=== PATIENT | female | born 1975 | race African-American/Black ===

== ENCOUNTER 2024-02-11 03:28 | Emergency (ER) | payer OTHER, SELFPAY ==
[2024-02-11 03:31] VITALS: BP 152/74; PULSE 78; RESP 15; TEMP 36.5; O2SAT 100
--- NOTE | 2024-02-11 04:48 | ED.GENADULT ---
HPI - General Adult General Chief complaint: Eye Problems Stated complaint: eyes swollen Time Seen by Provider: 02/11/24 04:40 History of Present Illness HPI narrative: 49-year-old female presents the emergency department for evaluation for bilateral eyelid inflammation that is been ongoing for the last 3 weeks. Patient did have follow-up with her primary care physician had thought this was possible sinus infection per patient and they told her to use Benadryl. Patient has been using Eucerin cream on the eyelids to help with the dry skin. Patient denies any irritation of her eye itself Related Data Allergies Allergy/AdvReac Type Severity Reaction Status Date / Time No Known Allergies Allergy Unknown Unverified 12/04/18 01:16 Review of Systems Review of Systems: All systems reviewed & are unremarkable except as noted in HPI and below Exam Narrative: APPEARANCE: Well appearing, no pain, no distress, well-nourished. HEAD: normocephalic, atraumatic. EYES: PERRLA/EOMI, conjunctivae clear. NOSE: Normal no drainage EARS:TMS clear with good light reflex. THROAT: Pharynx clear, no exudate. NECK: Supple. No adenopathy, no masses. RESPIRATORY: Airway patent, respirations nonlabored. Clear to auscultation bilaterally, no rales, rhonchi, wheezing. CARDIOVASCULAR: Regular rate and rhythm without murmurs rubs or gallops. ABDOMINAL: Soft, nontender, nondistended, normal bowel sounds MUSCULOSKELETAL: Moves all extremities. Strength/ROM intact, No edema, No calf tenderness. NEURO: Alert. Cranial nerves II through XII intact. Good gait. Good coordination SKIN: Warm, dry. Normal Color Course Vital Signs Vital signs: Vital Signs Temperature 97.7 F 02/11/24 03:31 Pulse Rate 78 02/11/24 03:31 Respiratory Rate 15 02/11/24 03:31 Blood Pressure 152/74 H 02/11/24 03:31 Pulse Oximetry 100 02/11/24 03:31 Oxygen Delivery Room Air 02/11/24 03:31 Temperature 97.7 F 02/11/24 03:31 Pulse Rate 78 02/11/24 03:31 Respiratory Rate 15 02/11/24 03:31 Blood Pressure 152/74 H 02/11/24 03:31 Pulse Oximetry 100 02/11/24 03:31 Oxygen Delivery Room Air 02/11/24 03:31 Medical Decision Making MDM Narrative Medical decision making narrative: 49-year-old female presents emergency department for evaluation for eyelid irritation. No evidence of cellulitis. Does appear to be an atopic dermatitis. Patient is already using Vaseline and Eucerin creams. Patient will be started on a short course of steroids. Patient was strongly encouraged to have close follow-up with her primary care physician. All questions and concerns were addressed Vital Signs Vital Signs: Vital Signs Temperature 97.7 F 02/11/24 03:31 Pulse Rate 78 02/11/24 03:31 Respiratory Rate 15 02/11/24 03:31 Blood Pressure 152/74 H 02/11/24 03:31 Pulse Oximetry 100 02/11/24 03:31 Oxygen Delivery Room Air 02/11/24 03:31 Temperature 97.7 F 02/11/24 03:31 Pulse Rate 78 02/11/24 03:31 Respiratory Rate 15 02/11/24 03:31 Blood Pressure 152/74 H 02/11/24 03:31 Pulse Oximetry 100 02/11/24 03:31 Oxygen Delivery Room Air 02/11/24 03:31 Discharge Plan Discharge Clinical Impression: Atopic dermatitis of eyelid Patient Disposition: Home, Self-Care Condition: Stable Instructions: Antibiotic Form Additional Instructions: Prednisone as directed until completed. Have close follow-up with your primary care physician. Continue to use Vaseline and Eucerin as you have been. Continue to take Benadryl if you feel this provides some relief. Patient Language: Filipino Prescriptions: New prednisone 50 mg tablet 50 mg PO DAILY 5 Days Qty: 5 0RF Follow-up/Referrals: Brandin,MD Voss ([place]heng[place]) [Primary Care Provider] -
--- OUTSIDE RECORDS SUMMARY | 2024-02-18 03:23 | XMS_ITS | Encounter Summary ---
Author Organization [facility] Address [address] [place] [address] Care Team Providers Care Registered Nurse Supervisor Name Role Phone Tristin Ghotra MD Primary Care Provider [phone] Reason for Visit * Reason Comments Refill Request Encounter Details Date Type Department Care Team (Late st Contact Info) Description 05/16/2018 Refill [facility] - [address], [place] [address] [place] [id number] Matt Armstrong MD [address] [place] [id number] Refill Request Social History Tobacco Use Types Packs/Day Years Used Date Smoking Tobacco: Never Alcohol Use Standard Drinks/Week Comments Yes 0 (1 standard drink = 0.6 oz pur e alcohol) Social Sex and Gender Information Value Date Recorded Sex Assigned at Not on file Gender Identity Not on file Sexual Orientation Not on file documented as of this encounter Plan of Treatment Not on file documented as of this encounter Visit Diagnoses Not on filedocumented in this encounter Care Teams Registered Nurse Supervisor Relationship Specialty Start Date End Date Tristin Ghotra MD [address] [place] [address] [address] [place] [address] PCP - General 04/04/12 documented as of this encounter
--- OUTSIDE RECORDS SUMMARY | 2024-02-18 03:23 | XMS_ITS | Encounter Summary ---
Author Organization [facility] Address [address] [place] [address] Care Team Providers Care Chronograph Operator Name Role Phone Tristin Ghotra MD Primary Care Provider [phone] Reason for Visit * Reason Onset Date Comments Update 10/02/2017 Blood Pressure Encounter Details Date Type Department Care Team (Late st Contact Info) Description 10/02/2017 Telephone [facility] - [address], [facility] [place] [address] [place] [address] Matt Armstrong MD [address] [place] [id number] Update (Blood Pressure) Social History Tobacco Use Types Packs/Day Years Used Date Smoking Tobacco: Never Alcohol Use Standard Drinks/Week Comments Yes 0 (1 standard drink = 0.6 oz pur e alcohol) Social Sex and Gender Information Value Date Recorded Sex Assigned at Not on file Gender Identity Not on file Sexual Orientation Not on file documented as of this encounter Miscellaneous Notes * Telephone Encounter - Roxanne Epperson - 10/03/2017 2:11 PM CDT Spoke with patient who agrees to start Nifedipine 30 mg daily (sent to pharmacy). She knows to callwith any problems or if she should become . * Telephone Encounter - Matt Armstrong MD - 10/03/2017 11:32 AM CDT BP still too high, given her history. I would recommend she start Nifedipine XL 30 mg qday. Potential SEs might include lightheadedness, feet/ankle swelling, or other. Most people would have none. Ifshe should get , this medicine is commonly used in - but she should still let us know. Thanks. * Telephone Encounter - Roxanne Epperson - 10/02/2017 3:14 PM CDT Patient called with her average blood pressure over the last two weeks taken about 9:00 PM each evening - 139/88. documented in this encounter Plan of Treatment Not on file documented as of this encounter Visit Diagnoses Not on filedocumented in this encounter Care Teams Chronograph Operator Relationship Specialty Start Date End Date Tristin Ghotra MD [address] [place] [address] [address] [place] [address] PCP - General 04/04/12 documented as of this encounter
--- OUTSIDE RECORDS SUMMARY | 2024-02-18 03:23 | XMS_ITS | Encounter Summary ---
Author Organization [facility] Address [address] [place] [address] Care Team Providers Care Geochemist Name Role Phone Tristin Ghotra MD Primary Care Provider [phone] Reason for Visit * Reason Onset Date Comments MEDICATION REFILL 10/03/2017 Encounter Details Date Type Department Care Team (Late st Contact Info) Description 10/03/2017 Refill [facility] - [address], [facility] [address] [place] [phone] Matt Armstrong MD [address] [place] [phone] MEDICATION REFILL Social History Tobacco Use Types Packs/Day Years [...] on filedocumented in this encounter Care Teams Geochemist Relationship Specialty Start Date End Date Tristin Ghotra MD [address] [place] [address] [address] [place] [address] PCP - General 04/04/12 documented as of this encounter
--- OUTSIDE RECORDS SUMMARY | 2024-02-18 03:23 | XMS_ITS | Encounter Summary ---
Author Organization [facility] Address [address] [place] [address] Care Team Providers Care Malted Milk Mixer Name Role Phone Tristin Ghotra MD Primary Care Provider [phone] Reason for Visit * Reason Comments Follow-up Encounter Details Date Type Department Care Team (Late Contact Info) Description 10/09/2018 12:15 PM CDT Office Visit [facility] - [address], [facility] [address] [place] [phone] Matt Armstrong MD [address] [place] [address] [place] [phone] Spontaneous dissection of coronary artery (Primary Dx); Essential hypertension; S/P coronary artery stent placement; History of RI (myocardial infarction); Insomnia, unspecified type; Elevated LFTs; History of near syncope Social History Tobacco Use Types Packs/Day Years Used Date Smoking Tobacco: Never Alcohol Use Standard Drinks/Week Comments Yes 0 (1 standard drink = 0.6 oz pur e alcohol) Social Sex and Gender Information Value Date Recorded Sex Assigned at Not on file Gender Identity Not on file Sexual Orientation Not on file documented as of this encounter Last Filed Vital Signs Vital Sign Reading Time Taken Comments Blood Pressure 110/70 10/09/2018 12:07 PM CDT Pulse 63 10/09/2018 12:07 PM CDT Temperature - - Respiratory Rate - - Oxygen Saturation 98% 10/09/2018 12:07 PM CDT Inhaled Oxygen Concentration - - Weight 68.9 kg (152 lb) 10/09/2018 12:07 PM CDT Height 175.3 cm (5' 9 ) 10/09/2018 12:07 PM CDT Body Mass Index 22.45 10/09/2018 12:07 PM CDT documented in this encounter Progress Notes * Matt Armstrong MD - 10/09/2018 12:15 PM CDT Images from the original note were not included. Chief Complaint Patient presents with ??? Follow-up History of Present Illness Paola Mckeon is a 43 year old female, who follows routinely for HTN, prior near syncope and priorMI and stenting due to spontaneous coronary dissection Weight down 3 lbs since last OV Systolic BP <120 when checked Has an ache in bilateral trapezius area sometimes radiating down arm. But no CP ever. No recent presyncope/syncope I do get dizzy a lot Energy level very low , which she ascribes to poor sleep chronically at night. Does not want to take sleeping pills because harder to wake up the next AM. 's snoring has increased a lot in last 2 years, which does nto help. (She reports he is seeing a sleep specialist soon.) Had a childhood h/o asthma. Does not believe she is depressed. Denies sadness, crying or anhedonia. Exercise - Walking 2x/week for 60 min in past months. Now doing a spin class 1d/week. She likes it when she is there, but hard to get motivated to go there. No bowel or bladder troubles. Menses are regular but heavy - Grievance And Appeals Specialist has advised a diagnostic study. Comprehensive system review is otherwise negative for constitutional, HENT, eyes, neck, musculoskeletal, derm, neuro, cardiovascular, pulmonary, extremities, vascular, endocrine, GI, . Patient Active Problem List Diagnosis Date Noted ??? Elevated LFTs 09/06/2017 Priority: Not Prioritized ??? History of RI (myocardial infarction) 09/06/2017 Priority: Not Prioritized Echo 09/2013 - EF 55-60%, anteroapical hypokinesis , nl chamber sizes, no valve problems Stress Echo 04/2015 - Mild apical inferior, apical septal hypokinesis, overall normal LVEF 58%, nl chamber sizes, no valve abnormalities, PASP 28 mmHg. Walked 12 min. Clinically/EKG negative. Images very mildly abnormal thought due to scar more than new ischemia. ??? Spontaneous dissection of coronary artery 09/06/2017 Priority: Not Prioritized ??? Essential hypertension 09/06/2017 Priority: Not Prioritized Home PSG 01/2018 - Normal limits. No sleep apnea. ??? S/P coronary artery stent placement 09/06/2017 Priority: Not Prioritized Cath 09/21/2013 - LVEDP 20, EF 55%. Nl aortic root w/ no dissection. Spontaneous dissection of the LAD proximal to mid, involving a diagonal. Stented w/ bare metal stents x 2. Cath 09/23/2017 - Patent LAD stents w/ MIKALA 3 flow (improved). ??? History of near syncope 09/06/2017 Priority: Not Prioritized Past Medical History: Diagnosis Date ??? Childhood asthma ??? Elevated liver enzymes ??? Spontaneous dissection of coronary artery Past Surgical History: Procedure Laterality Date ??? Appendectomy ??? Cholecystectomy ??? Coronary Stent Placement Current Outpatient Medications Medication Sig Dispense Refill ??? aspirin (ASPIRIN) 81 MG chew tablet Take 81 mg by mouth once daily ??? clobetasol propionate (CLOBEX) 0.05 % shampoo by Apply externally route as needed ??? NIFEdipine CR 24hr (ADALAT CC) 60 MG tablet TAKE 1 TABLET BY MOUTH ONCE DAILY TAKE ON AN EMPTY STOMACH 30 tablet 5 ??? NON FORMULARY REQUEST Nutrafol ??? spironolactone (ALDACTONE) 100 MG tablet Take 100 mg by mouth once daily No current facility-administered medications for this visit. No Known Allergies Social History Socioeconomic History ??? Marital status: Spouse name: Not on file ??? Number of children: Not on file ??? Years of education: Not on file ??? Highest education level: Not on file Occupational History ??? Not on file Social Needs ??? Financial resource strain: Not on file ??? Food insecurity: Worry: Not on file Inability: Not on file ??? Transportation needs: Medical: Not on file Non-medical: Not on file Tobacco Use ??? Smoking status: Never Smoker Substance and Sexual Activity ??? Alcohol use: Yes Comment: Social ??? Drug use: Not on file ??? Sexual activity: Not on file Lifestyle ??? Physical activity: Days per week: Not on file Minutes per session: Not on file ??? Stress: Not on file Relationships ??? Social connections: Talks on phone: Not on file Gets together: Not on file Attends pentecostal service: Not on file Active member of club or organization: Not on file Attends meetings of clubs or organizations: Not on file Relationship status: Not on file ??? Intimate partner violence: Fear of current or ex partner: Not on file Emotionally abused: Not on file Physically abused: Not on file Forced sexual activity: Not on file Other Topics Concern ??? Not on file Social History Narrative in 2003. Has a son born in 2004. 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 Family History Problem Relation Age of Onset ??? Hypertension Mother ??? Aneurysm, Brain Sister 51 ??? Hypertension Sister Exam BP 110/70 Pulse 63 Ht 1.753 m (5' 9 ) Wt 68.9 kg (152 lb) SpO2 98% BMI 22.45 kg/m2 Filed Wts: 10/09/18 1207 Weight: 68.9 kg (152 lb) General -- Pleasant, NAD Eyes -- sclerae anicteric HENT/Neck -- atraumatic head, JVP normal, carotids 2+ without bruit CV -- regular, normal rate, no M/R/G Chest -- CTA bilaterally Abdomen -- ND, soft, NT, Ao not enlarged, no HJR, + hepatomegaly, spleen not palpable MSK/Extremities -- no cyanosis, clubbing or edema Vascular -- 2+ x bilateral radial & pedal pulses Neuro -- Alert, interactive, appropriate Derm -- no rash Assessment and Plan Spontaneous dissection of coronary artery Essential hypertension S/P coronary artery stent placement History of RI (myocardial infarction) Insomnia, unspecified type Elevated LFTs History of near syncope 1. 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 2. Random, usually non-exertional trapezius pain is dissimilar from prior angina and thought likelynon-cardiac. 3. Again reviewed potential future heart symptoms of concern for which she should contact us or getprompt help. 4. Continue ASA 81 mg qday. I suspect statins have been avoided in the past due to liver problems. Given the liver history, and the relative lack of knowledge if statins impact the risk of recurrent SCAD, I suggest no statin now. 5. Fatigue persists. Had a sleep study with Dr. Ghotra but she is unsure of results. 6. Taking Spironolactone at high dose per Direct Service Worker for hair loss and scalp yeast. 7. Hydrate better. 8. HTN now stable after increasing Nifedipine to 60 mg qday. 9. When she started Nifedipine, patient elected to stop Ramipril. 10. Will decrease Nifedipine to 30 mg qday to see if helps dizziness. 11. Will refer to Sleep Medicine specialist for long-standing insomnia. (Had a prior home sleep study with results thought likely inaccurate.) 12. Counseled exercise, heart healthy diet & lifestyle strategies to achieve ideal body weight,heart safety and global wellness. 13. Spell of near passing out in early 2018 sounds vagal, as had been previously suggested to her. I advised of physiology, common occurrence, avoidance tactics and maneuvers. 14. Counseled potential future symptoms of heart concern for which patient agrees to get prompt care. 15. Routine f/u in 6 mo. Matt Armstrong III, MD, [email or web address] * Roxanne Epperson - 10/09/2018 12:06 PM CDT 6 mo f/u Weight down 3 lbs since last OV Systolic BP <120 when checked No recent presyncope/syncope I do get dizzy a lot Energy level very low documented in this encounter Plan of Treatment Not on file documented as of this encounter Visit Diagnoses Diagnosis Spontaneous dissection of coronary artery- Primary Essential hypertension S/P coronary artery stent placement Postsurgical percutaneous transluminal coronary angioplasty status History of RI (myocardial infarction) Old myocardial infarction Insomnia, unspecified type Elevated LFTs Other abnormal blood chemistry History of near syncope Personal history of other specified diseases documented in this encounter Care Teams Malted Milk Mixer Relationship Specialty Start Date End Date Tristin Ghotra MD [address] [place] [address] [address] [place] [address] PCP - General 04/04/12 documented as of this encounter
--- OUTSIDE RECORDS SUMMARY | 2024-02-18 03:23 | XMS_ITS | Encounter Summary ---
Author Organization [facility] Address [address] [place] [address] Care Team Providers Care Apparel Rental Clerk Name Role Phone Tristin Ghotra MD Primary Care Provider [phone] Reason for Visit * Reason Comments Establish Care Encounter Details Date Type Department Care Team (Late st Contact Info) Description 09/06/2017 8:30 AM CDT Office Visit LOCATED WITHIN [facility] - [address], [facility] [address] [place] [phone] Matt Armstrong MD [address] [place] [address] [place] [id number] Spontaneous dissection of coronary artery (Primary Dx); Essential hypertension; History of [place] (myocardial infarction); Elevated LFTs; S/P coronary artery stent placement; History of near syncope Social History Tobacco [...] Sign Reading Time Taken Comments Blood Pressure 153/81 09/06/2017 8:32 AM CDT Pulse 70 09/06/2017 8:32 AM CDT Temperature - - Respiratory Rate - - Oxygen Saturation 98% 09/06/2017 8:32 AM CDT Inhaled Oxygen Concentration - - Weight 70.8 kg (156 lb) 09/06/2017 8:32 AM CDT Height 175.3 cm (5' 9 ) 09/06/2017 8:32 AM CDT Body Mass Index 23.04 09/06/2017 8:32 AM CDT documented in this encounter Progress Notes * Roxanne Epperson - 09/06/2017 8:20 AM CDT Self-referred Transferring care from Dr. [place] Waldrop Last echo - 05/20/15 EKG - 09/28/16 Elevated liver enzymes & swollen liver Reports having palpitations SOB often - both with and without activity Patien reports dissection, but Dr. Waldrop's report states no dissection Became lightheaded, nausea and dizzy at son's basketball game about eight months ago - went to [place] ([place], [place]) ER * Matt Armstrnog MD - 09/06/2017 8:00 AM CDT Images from the original note were not included. Primary Care Physician: Tristin Ghotra MD Patient's Name: Paola Mckeon Age: 42 y.o. Sex: female Chief Complaint Patient presents with ??? 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 She previously saw Dr. [place] Waldrop. Patient reports she had mildly elevated high BP during her in 2004. She recalls she was started on some B-dylan. She was then changed to some other BP med after delivery b/c BP stayed mildly up. She would have irregular heart beats at times. Monitors apparently showed just what she describes as an infrequent extra heart beat. Had been having increased stress in her life around 2013. She had a burn, rip feel in her chest one day. She ignored it b/c it went away. Then, occurred again the next day worse, w/ sweating and nausea. Went to , then promptly to [facility] where she was told she had a coronary dissection for which she received two stents. She was ultimately off meds after a year. BP went up. States the weight is slowly coming off after stopping the Toprol. Reports she has occasional sensation of an air bubble in her mid chest, or some random very brief prickly sensations in her chest, different than her original angina. Had a spell of near passing out watching her son play a basketball game in a gym in the Winter of -. Ultimately thought to have been a vagal event - none prior or since. Exercise - No recent exercise. Was getting short winded when exercised. Used to spin 5 d/week. Has never been a good sleeper. Believes she is not depressed. But tired a lot. 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 She has been on lots of itching and jaundice. Sees Dr. Hager (GI) in [place] and [place] (GI). Several liver biopsies have been inconclusive. Denies recent itching or jaundice. States bowels lately normal. But has abd bloating immediately after eating or drinking. Has beenRx'd an inhaler, but she has not used it. PFTs were thought OK. Has some increased flow lately w/ menses and planning Single Resource Boss visit soon. Otherwise, constitutional, HENT/neck, eyes, endocrine, CV, pulmonary, GI, , neuro, derm, heme, MSK, extremities are all negative. Patient Active Problem List Diagnosis Date Noted ??? Elevated LFTs 09/06/2017 Priority: Not Prioritized ??? History of [place] (myocardial infarction) 09/06/2017 Priority: Not Prioritized ??? Spontaneous dissection of coronary artery 09/06/2017 Priority: Not Prioritized ??? Essential hypertension 09/06/2017 Priority: Not Prioritized ??? S/P coronary artery stent placement 09/06/2017 Priority: Not Prioritized ??? History of near syncope 09/06/2017 Priority: Not Prioritized Current Outpatient Prescriptions Medication Sig Dispense Refill ??? ramipril (ALTACE) 5 MG capsule Take 5 mg by mouth once daily ??? aspirin (ASPIRIN) 81 MG chew tablet Take 81 mg by mouth once daily No current facility-administered medications for this visit. No Known Allergies Past Medical History: Diagnosis Date ??? Childhood asthma ??? Elevated liver enzymes ??? Spontaneous dissection of coronary artery Past Surgical History: Procedure Laterality Date ??? Appendectomy ??? Cholecystectomy ??? Coronary Stent Placement Social History Social History ??? Marital status: Spouse name: N/A ??? Number of children: N/A ??? Years of education: N/A Occupational History ??? Not on file. Social History Main Topics ??? Smoking status: Never Smoker ??? Smokeless tobacco: Not on file ??? Alcohol use Yes Comment: Social ??? Drug use: Not on file ??? Sexual activity: Not on file Other Topics Concern ??? Not on file Social History Narrative in 2003. Has a son born in 2004. 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 Family History Problem Relation Age of Onset ??? Hypertension Mother ??? Aneurysm, Brain Sister 51 ??? Hypertension Sister Exam BP 153/81 Pulse 70 Ht 1.753 m (5' 9 ) Wt 70.8 kg (156 lb) SpO2 98% BMI 23.04 kg/m2 General -- Pleasant, NAD Eyes -- sclerae [...] Alert, interactive, appropriate Derm -- no rash Data Lab & Data Highlights -- pending EKG: Normal sinus, normal EKG - 2016 Assessment and Plan Spontaneous dissection of coronary artery Essential hypertension History of [place] (myocardial infarction) Elevated LFTs S/P coronary artery stent placement History of near syncope 1. Patient has a complicated and intriguing history. 2. I counseled the anatomy, limited known physiology and natural history of patients with spontaneous coronary dissection. 3. I offered online references for her to read more. 4. 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 5. I recommend ASA 81 mg qday. I suspect statins have been avoided in the past due to liver problems. Given the liver history, and the relative lack of knowledge if statins impact the risk of recurrent SCAD, I suggest no statin now. 6. 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 She agrees to get back to moderate regular exercise, starting slowly andbuilding steadily. 7. If she cannot build her endurance, then further cardiac & metabolic evaluation would seem warranted - e.g. For heart concerns, liver worsening, worse asthma than she realizes, etc 8. Symptoms of potential future heart concern reviewed, for which she agrees she would get urgent help. 9. HTN not controlled. She suspects it is often high. She prefers no B-dylan due to possible associated weight gain with Toprol. Given that she has no angina, and has a known normal EF post-KS, no B-dylan is very reasonable. 10. Continue Ramipril. She is aware of precautions and prefers to continue it. She agreesto stop Ramipril immediately should she possibly be . 11. She will get a BP cuff and keep a home log. Numbers to us in a week. 12. Will request admission records from [place] and stenting admission. 13. Will attempt to find latest labs. 14. Spell of near passing out in early 2018 sounds vagal, as had been previously suggested to her. I advised of physiology, common occurrence, avoidance tactics and maneuvers. Stay well hydrated. 15. She agrees to check back in with her Skidway Man. 16. Routine f/u with us in 6 weeks, or anytime sooner with concerns. Matt Armstrong III, MD, [facility] documented in this encounter Plan of Treatment Not on file documented as of this encounter Visit Diagnoses Diagnosis Spontaneous dissection of coronary artery- Primary Essential hypertension History of [place] (myocardial infarction) Old myocardial infarction Elevated LFTs Other abnormal blood chemistry S/P coronary artery stent placement Postsurgical percutaneous transluminal coronary angioplasty status History of near syncope Personal history of other specified diseases documented in this encounter Care Teams Apparel Rental Clerk Relationship Specialty Start Date End Date Tristin Ghotra MD [address] [place] [address] [address] [place] [address] PCP - General 04/04/12 documented as of this encounter
--- OUTSIDE RECORDS SUMMARY | 2024-02-18 03:23 | XMS_ITS | Encounter Summary ---
Author Organization [facility] Address [address] [place] [address] Care Team Providers Care Cleaning Associate Name Role Phone Tristin Ghotra MD Primary Care Provider [phone] Reason for Visit * Reason Comments Follow-up Encounter Details Date Type Department Care Team ([facility] Contact Info) Description 12/14/2017 11:30 AM CDT Office Visit [facility] - [address], [facility] [address] [place] [phone] Matt Armstrong MD [address] [place] [address] [place] [phone] Spontaneous dissection of coronary artery (Primary Dx); Essential hypertension; History of [place] (myocardial infarction); S/P coronary artery stent placement; History of [...] Sign Reading Time Taken Comments Blood Pressure 134/91 12/14/2017 11:05 AM CDT Pulse 67 12/14/2017 11:05 AM CDT Temperature - - Respiratory Rate - - Oxygen Saturation 98% 12/14/2017 11:05 AM CDT Inhaled Oxygen Concentration - - Weight 70.3 kg (155 lb) 12/14/2017 11:05 AM CDT Height 175.3 cm (5' 9 ) 12/14/2017 11:05 AM CDT Body Mass Index 22.89 12/14/2017 11:05 AM CDT documented in this encounter Progress Notes * Roxanne Epperson - 12/14/2017 11:05 AM CDT 8 week f/u Weight same as last OV FLP, T4, TSH, CBC, CK, CMP, Iron - 11/20/17 Systolic BP usually high 130s No new symptoms/concerns * Matt Armstrong MD - 12/14/2017 10:55 AM CDT Images from the original note were not included. Chief Complaint Patient presents with ??? Follow-up History of Present Illness Paola Mckeon is a 42 y.o. female, who follows routinely for HTN, prior near syncope and prior [place] and stenting due to spontaneous coronary dissection Weight same as last OV FLP, T4, TSH, CBC, CK, CMP, Iron - 11/20/17 reviwed Systolic BP usually high 130s US of liver showed mildly swollen as usual, but no other concerns. LFTs about as low as they have been. No new symptoms/concerns. Denies lightheadedness, CP, palpitations, dyspnea. Exercise - walking or jogging twice a week for an hour. Feels she is out of shape but improving. No nausea or abd pain. No recent syncope. Has noticed top of L foot swelled occasionally, but resolved on its own. Undestands she has a kidney stone by US, but no symptoms of flank pain or blood in urine. Comprehensive system review is otherwise negative for constitutional, HENT, eyes, neck, musculoskeletal, derm, neuro, cardiovascular, pulmonary, extremities, vascular, endocrine, GI, . Patient Active Problem List Diagnosis Date Noted ??? Elevated LFTs 09/06/2017 Priority: Not Prioritized ??? History of [place] (myocardial infarction) 09/06/2017 Priority: Not Prioritized Echo [...] Cholecystectomy ??? Coronary Stent Placement Current Outpatient Prescriptions Medication Sig Dispense Refill ??? NIFEdipine CR 24hr (ADALAT CC) 30 MG tablet Take 1 tablet by mouth once daily Take on an empty stomach. 30 tablet 5 ??? aspirin (ASPIRIN) 81 MG chew tablet Take 81 mg by mouth once daily No current facility-administered medications for this visit. No Known Allergies Social History Social History ??? Marital status: [...] born in 2004. 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 Family History Problem Relation Age of Onset ??? Hypertension Mother ??? Aneurysm, Brain Sister 51 ??? Hypertension Sister Exam BP 134/91 Pulse 67 Ht 1.753 m (5' 9 ) Wt 70.3 kg (155 lb) SpO2 98% BMI 22.89 kg/m2 Filed Wts: 12/14/17 1105 Weight: 70.3 kg (155 lb) General -- Pleasant, NAD Eyes -- [...] of coronary artery Essential hypertension History of [place] (myocardial infarction) S/P coronary artery stent placement History of near syncope 1. 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 2. I recommend ASA 81 mg qday. I suspect statins have been avoided in the past due to liver problems. Given the liver history, and the relative lack of knowledge if statins impact the risk of recurrent SCAD, I suggest no statin now. 3. Fatigue is of unclear cause still. Planning a sleep study with Dr. Ghotra. 4. HTN still not optimized, but better. Will increase Nifedipine to 60 mg qday. 5. When she started Nifedipine, patient elected to stop Ramipril. 6. She is planning to ramp up her exercise to 4d/week. 7. Spell of near passing out in early 2018 sounds vagal, as had been previously suggested to her. Iadvised of physiology, common occurrence, avoidance tactics and maneuvers. Stay well hydrated. 8. She agrees to check back in with her Media Executive. 9. Routine f/u with us in 10 weeks. Matt Armstrong III, MD, [facility] [email or web address] documented in this encounter Plan of Treatment Not on file documented as of this encounter Visit Diagnoses Diagnosis Spontaneous dissection of coronary artery- Primary Essential hypertension History of [place] (myocardial infarction) Old myocardial infarction S/P coronary artery stent placement Postsurgical percutaneous transluminal coronary angioplasty status History of near syncope Personal history of other specified diseases documented in this encounter Care Teams Cleaning Associate Relationship Specialty Start Date End Date Tristin Ghotra MD [facility] [address] [place] [address] PCP - General 04/04/12 documented as of this encounter
--- OUTSIDE RECORDS SUMMARY | 2024-02-18 03:23 | XMS_ITS | Encounter Summary ---
Author Organization [facility] Address [address] [place] [address] Care Team Providers Care Special Education Director Name Role Phone Tristin Ghotra MD Primary Care Provider [phone] Reason for Visit * Reason Comments Follow-up Encounter Details Date Type Department Care Team (Late st Contact Info) Description 05/30/2019 12:00 PM CDT Video Visit [facility] - [address], [facility] [address] [place] [phone] Matt Armstrong MD [address] [place] [address] [place] [address] Spontaneous dissection of coronary artery ; Essential hypertension; S/P coronary artery stent placement; History of near syncope; History of [place] (myocardial infarction); Elevated LFTs Social History Tobacco Use Types Packs/Day Years Used Date Smoking Tobacco: Never Alcohol Use Standard Drinks/Week Comments Yes 0 (1 standard drink = 0.6 oz pur e alcohol) Social Sex and Gender Information Value Date Recorded Sex Assigned at Not on file Gender Identity Not on file Sexual Orientation Not on file COVID-19 Exposure Response Date Recorded In the last month, have you been in contact with someone who was confirmed or suspected to have Coronavirus / COVID-19? Unable to assess 05/27/2019 1:23 PM CDT documented as of this encounter Last Filed Vital Signs Vital Sign Reading Time Taken Comments Blood Pressure 98/74 05/30/2019 11:28 AM CDT Pulse 73 05/30/2019 11:28 AM CDT Temperature - - Respiratory Rate - - Oxygen Saturation - - Inhaled Oxygen Concentration - - Weight 69.4 kg (153 lb) 05/30/2019 11:28 AM CDT Height 175.3 cm (5' 9 ) 05/30/2019 11:28 AM CDT Body Mass Index 22.59 05/30/2019 11:28 AM CDT documented in this encounter Progress Notes * Matt Armstrong MD - 05/30/2019 12:00 PM CDT Images from the original note were not included. Chief Complaint Patient presents with ??? Follow-up History of Present Illness Paola Mckeon is a 44 year old female, who follows routinely for HTN, prior near syncope and prior[place] and stenting due to spontaneous coronary dissection Patient provides informed consent for today's telehealth visit supported by [employer] secure platform. Weight up 1 lb since last OV Had pain under ribs when eating Reports previous condition of elevated liver enzymes again. Making her nauseous and itchy - had upper endoscopy Showed irritation in her stomach and put her on a special diet She was Rx'd an antacid - awaiting insurance approval I've had some shortness of breath a lot and some dizziness just when I bend over and stand up No recent presyncope. BP has been low, often in 90s systolic, even after changed BP cuff batteries. Energy level better than last time . Her sores a lot. He now sleeps mostly in a different room. She is now sleeping better. She no longer needs naps. Exercise - Works out on a [employer] Program[employer] the last 3 months. She does not like it. Does 30 min 4d/week. No bowel or bladder troubles. Menses are regular but heavy - Foundation Relations Manager has advised a diagnostic study. Comprehensive system review is otherwise negative for constitutional, HENT, eyes, neck, musculoskeletal, derm, neuro, cardiovascular, pulmonary, extremities, vascular, endocrine, GI, . Patient Active Problem List Diagnosis Date Noted ??? Elevated LFTs 09/06/2017 Priority: Not Prioritized ??? History of [place] (myocardial infarction) 09/06/2017 Priority: Not Prioritized Echo [...] Outpatient Medications Medication Sig Dispense Refill ??? [START ON 05/31/2019] aspirin (ASPIRIN) 81 MG chew tablet Take 1 tablet by mouth every Monday, Monday & Monday ??? clobetasol propionate (CLOBEX) 0.05 % shampoo by Apply externally route as needed ??? NON FORMULARY REQUEST Nutrafol ??? spironolactone [...] resource strain: Not on file ??? Food insecurity Worry: Not on file Inability: Not on file ??? Transportation needs Medical: Not on file Non-medical: Not on file Tobacco Use ??? Smoking status: Never Smoker Substance and Sexual Activity ??? Alcohol use: Yes Comment: Social ??? Drug use: Not on file ??? Sexual activity: Not on file Lifestyle ??? Physical activity Days per week: Not on file Minutes per session: Not on file ??? Stress: Not on file Relationships ??? Social connections Talks on phone: Not on file Gets together: Not on file Attends confucianist service: Not on file Active member of club or organization: Not on file Attends meetings of clubs or organizations: Not on file Relationship status: Not on file ??? Intimate partner violence Fear of current or ex partner: Not on file Emotionally abused: Not on file Physically abused: Not on file Forced sexual activity: Not on file Other Topics Concern ??? Not on file Social History Narrative in 2003. Has a son born in 2004. 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 Family History Problem Relation Name Age of Onset ??? Hypertension Mother ??? Aneurysm, Brain Sister 51 ??? Hypertension Sister Exam BP 98/74 Pulse 73 Ht 1.753 m (5' 9 ) Wt 69.4 kg (153 lb) BMI 22.59 kg/m2 Filed Wts: 05/30/19 1128 Weight: 69.4 kg (153 lb) General - Pleasant, NAD Eyes - sclerae anicteric HENT/Neck - atraumatic head, JVP normal Chest - no resting dyspnea, speaks in full sentences MSK/Extremities - no cyanosis, no gross torso or upper extremity deformity Psych - calm and cooperative Neuro -- Alert, interactive, appropriate Derm -- no obvious rash or pallor (Vitals are patient reported. Further examination deferred due to limitations of telehealth visit.) Assessment and Plan Spontaneous dissection of coronary artery Essential hypertension S/P coronary artery stent placement History of near syncope History of [place] (myocardial infarction) Elevated LFTs 1. 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 2. Random, usually non-exertional trapezius pain is gone lately, was dissimilar from prior angina and thought likely non-cardiac. 3. Dyspnea lately is non-exertional. She has heard herself wheeze from time to time. Went to ER in 02/2019 for wheezing. Had childhood asthma. Dr. Ghotra had Rx'd an inhaler in the past, but she did not get it due to insurance problems. 4. Dyspnea is not worse w/ workouts and does not sound cardiac. I suspect she has mild intermittentasthma. She agrees to check in w/ Dr. Ghotra for any asthma eval and Rx. 5. HTN historically, actually now low at times. Lightheadedness likely due to recently low BPs w/ better sleep and more consistent exercise. Stop Nifedipine. 6. Irritated gastric lining described may be in part due to ASA 81 mg daily. Rec she decrease ASA 81 to q MWF, in addition to taking antacid as advised. 7. Again reviewed potential future heart symptoms of concern for which she should contact us or getprompt help. 8. Continue ASA 81 mg qday. I suspect statins have been avoided in the past due to liver problems. Given the liver history, and the relative lack of knowledge if statins impact the risk of recurrent SCAD, I suggest no statin now. 9. Fatigue persists. Had a sleep study with Dr. Ghotra but she is unsure of results. 10. Taking Spironolactone at high dose per Community Health Worker for hair loss and scalp yeast. 11. Again encouraged thoughtful, consistent hydration. 12. Encouraged her regular exercise. 13. Spell of near passing out in early 2018 sounds vagal, as had been previously suggested to her. I advised of physiology, common occurrence, avoidance tactics and maneuvers. 14. Again, counseled potential future symptoms of heart concern for which patient agrees to get prompt care. 15. Routine f/u in 6 mo. Matt Armstrong III, MD, [facility] [email or web address] * Roxanne Epperson - 05/30/2019 11:27 AM CDT 6 mo f/u Weight up 1 lb since last OV Reports previous condition of elevated liver enzymes making her nauseous and itchy - had upper endoscopy Showed irritation in her stomach and put her on a special diet I've had some shortness of breath a lot and some dizziness just when I bend over and stand up No recent presyncope Energy level better than last tme I saw him documented in this encounter Plan of Treatment Not on file documented as of this encounter Visit Diagnoses Diagnosis Spontaneous dissection of coronary artery- Primary Essential hypertension S/P coronary artery stent placement Postsurgical percutaneous transluminal coronary angioplasty status History of near syncope Personal history of other specified diseases History of [place] (myocardial infarction) Old myocardial infarction Elevated LFTs Other abnormal blood chemistry documented in this encounter Care Teams Special Education Director Relationship Specialty Start Date End Date Tristin Ghotra MD [address] [place] [address] [address] [place] [address] PCP - General 04/04/12 documented as of this encounter
--- OUTSIDE RECORDS SUMMARY | 2024-02-18 03:23 | XMS_ITS | Encounter Summary ---
Author Organization [facility] Address [address] [place] [address] Care Team Providers Care Registered Midwife Name Role Phone Tristin Ghotra MD Primary Care Provider [phone] Encounter Details Date Type Department Care Team (Latest Contact Info) Description 05/30/2019 Travel Social History Tobacco Use Types Packs/Day Years [...] or suspected to have Coronavirus / COVID-19? No / Unsure 05/30/2019 1:22 PM CDT documented as of this encounter Plan of Treatment Not on file documented as of this encounter Visit Diagnoses Not on filedocumented in this encounter Care Teams Registered Midwife Relationship Specialty Start Date End Date Tristin Ghotra MD [address] [place] [address] [address] [place] [address] PCP - General 04/04/12 documented as of this encounter
--- OUTSIDE RECORDS SUMMARY | 2024-02-18 03:23 | XMS_ITS | Encounter Summary ---
Author Organization [facility] Address [address] [place] [address] Care Team Providers Care Internal Combustion Engine Inspector Name Role Phone Tristin Ghotra MD Primary Care Provider [phone] Encounter Details Date Type Department Care Team (Latest Contact Info) Description 05/27/2019 Travel Social History Tobacco Use Types Packs/Day [...] on filedocumented in this encounter Care Teams Internal Combustion Engine Inspector Relationship Specialty Start Date End Date Tristin Ghotra MD [address] [place] [address] [address] [place] [address] PCP - General 04/04/12 documented as of this encounter
--- OUTSIDE RECORDS SUMMARY | 2024-02-18 03:23 | XMS_ITS | Encounter Summary ---
Author Organization [facility] Address [address] [place] [address] Care Team Providers Care Optical Glass Etcher Name Role Phone Tristin Ghotra MD Primary Care Provider [phone] Reason for Visit * Reason Comments Follow-up Encounter Details Date Type Department Care Team (Late Contact Info) Description 04/10/2018 12:30 PM AIRCONDITIONING PLANT OPERATOR Office Visit [facility] - [address], [facility] [address] [place] [phone] Matt Armstrong MD [address] [place] [address] [place] [phone] Spontaneous dissection of coronary artery (Primary Dx); Essential hypertension; Elevated LFTs; History of MT (myocardial infarction); S/P coronary artery stent placement; [...] Sign Reading Time Taken Comments Blood Pressure 119/82 04/10/2018 12:28 PM AIRCONDITIONING PLANT OPERATOR Pulse 61 04/10/2018 12:28 PM AIRCONDITIONING PLANT OPERATOR Temperature - - Respiratory Rate - - Oxygen Saturation 97% 04/10/2018 12:28 PM AIRCONDITIONING PLANT OPERATOR Inhaled Oxygen Concentration - - Weight 70.3 kg (155 lb) 04/10/2018 12:28 PM AIRCONDITIONING PLANT OPERATOR Height 175.3 cm (5' 9 ) 04/10/2018 12:28 PM AIRCONDITIONING PLANT OPERATOR Body Mass Index 22.89 04/10/2018 12:28 PM AIRCONDITIONING PLANT OPERATOR documented in this encounter Progress Notes * Roxanne Epperson - 04/10/2018 12:28 PM CST 10 week f/u Weight same as last OV Systolic BP usually upper 130s No recent syncope/presyncope ONDITIONING PLANT OPERATOR * Matt Armstrong MD - 03/03/2018 9:19 AM CST Images from the original note were not included. Chief Complaint Patient presents with ??? Follow-up History of Present Illness Paola Mckeon is a 43 y.o. 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 Very consistent w/ meds. Feels she may have some tightness in chest worse lying flat. Not usually w/ exertion. Mostly when lying flat. Gets it more w/ a cold. No recent wheezing or fever, but has had a recent cold. Had a childhood h/o asthma. Exercise - Walking 2x/week for 40 min in past months. Now doing a spin class 2d/week. She likes it when she is there, but hard to get motivated to go there. She is getting a Peloton bike in 2 weeks. No bowel or bladder troubles. Comprehensive system review is otherwise negative for constitutional,HENT, eyes, neck, musculoskeletal, derm, neuro, cardiovascular, pulmonary, extremities, vascular, endocrine, GI, . Patient Active Problem List Diagnosis Date Noted ??? Elevated LFTs 09/06/2017 Priority: Not Prioritized ??? History of MT (myocardial infarction) 09/06/2017 Priority: Not Prioritized Echo [...] Outpatient Prescriptions Medication Sig Dispense Refill ??? aspirin (ASPIRIN) 81 MG chew tablet Take 81 mg by mouth once daily ??? NIFEdipine CR 24hr (ADALAT CC) 60 MG tablet Take 1 tablet by mouth once daily Take on an empty stomach. 30 tablet 5 No current facility-administered medications for this visit. [...] born in 2003. 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 Family History Problem Relation Age of Onset ??? Hypertension Mother ??? Aneurysm, Brain Sister 51 ??? Hypertension Sister Exam BP 119/82 Pulse 61 Ht 1.753 m (5' 9 ) Wt 70.3 kg (155 lb) SpO2 97% BMI 22.89 kg/m2 Filed Wts: 04/10/18 1228 Weight: 70.3 kg (155 lb) General -- [...] Spontaneous dissection of coronary artery Essential hypertension Elevated LFTs History of MT (myocardial infarction) S/P coronary artery stent placement History of near syncope 1. 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 2. Chest tightness at times sounds like asthma related to periodic URIs. Follow. 3. Again reviewed potential future heart symptoms [...] Ghotra but she is unsure of results. We will request. 6. HTN now stable after increasing Nifedipine to 60 mg qday. 7. When she started Nifedipine, patient elected to stop Ramipril. 8. She is planning to ramp up her exercise to 4d/week. Counseled strategy and strongly encouraged. 9. Spell of near passing out in early 2018 sounds vagal, as had been previously suggested to her. Iadvised of physiology, common occurrence, avoidance tactics and maneuvers. Stay well hydrated. 10. She agrees to check back in with her Combo Welder. 11. Routine f/u in 6 mo. Matt Armstrong III, MD, [email or web address] ONDITIONING PLANT OPERATOR documented in this encounter Plan of Treatment Not on file documented as of this encounter Visit Diagnoses Diagnosis Spontaneous dissection of coronary artery- Primary Essential hypertension Elevated LFTs Other abnormal blood chemistry History of MT (myocardial infarction) Old myocardial infarction S/P coronary artery stent placement Postsurgical percutaneous transluminal coronary angioplasty status History of near syncope Personal history of other specified diseases documented in this encounter Care Teams Optical Glass Etcher Relationship Specialty Start Date End Date Tristin Ghotra MD [address] [place] [address] [address] [place] [address] PCP - General 04/04/12 documented as of this encounter
--- OUTSIDE RECORDS SUMMARY | 2024-02-18 03:23 | XMS_ITS | Encounter Summary ---
Author Organization [facility] Address [address] [facility] [place] [address] Care Team Providers Care Engineering Technician Parking Name Role Phone Tristin Ghotra MD Primary Care Provider [phone] Encounter Details Date Type Department Care Team (Late st Contact Info) Description 05/07/2018 Orders Only [facility] - [place] [address], [place] [address] [place] [address] ProviderYahir MD Social History Tobacco Use Types Packs/Day Years [...] on file documented as of this encounter Procedures Procedure Name Priority Date/Time Associated Diagnosis Comments HOME SLEEP STUDY Routine 04/03/2017 documented in this encounter Results * HOME SLEEP STUDY (04/03/2017) Historical Provider [facility] documented in this encounter Visit Diagnoses Not on filedocumented in this encounter Care Teams Engineering Technician Parking Relationship Specialty Start Date End Date Tristin Ghotra MD [address] [place] [address] [place] [address] [place] [address] PCP - General 04/04/12 documented as of this encounter
--- OUTSIDE RECORDS SUMMARY | 2024-02-18 03:23 | XMS_ITS | Encounter Summary ---
Author Organization [facility] Address [address] [facility] [place] [address] Care Team Providers Care Archives Specialist Name Role Phone Tristin Ghotra MD Primary Care Provider [phone] Reason for Visit * Reason Onset Date Comments Erroneous encounter-disregard 11/21/2018 MEDICATION REFILL 11/21/2018 Encounter Details Date Type Department Care Team (Late st Contact Info) Description 11/21/2018 Refill [facility] - [address], [facility] [address] [place] [phone] Matt Armstrong MD [address] [place] [address] Erroneous encounter-disregard; MEDICATION REFILL Social History Tobacco Use Types [...] * Telephone Encounter - Roxanne Epperson - 11/21/2018 9:16 AM CDT Erroneous encounter - please disregard. See separate refill encounter. * Telephone Encounter - Matt Armstrong MD - 11/21/2018 8:58 AM CDT Roxanne, The computer is second guessing the pharmacy selection, and I cannot override it to approve her med. Will you double check the pharmacy? I may have messed that up somehow. Thanks. J documented in this encounter Plan of Treatment Not on file documented as of this encounter Visit Diagnoses Not on filedocumented in this encounter Care Teams Archives Specialist Relationship Specialty Start Date End Date Tristin Ghotra MD [address] [facility] [address] [place] [address] PCP - General 04/04/12 documented as of this encounter
--- OUTSIDE RECORDS SUMMARY | 2024-02-18 03:23 | XMS_ITS | Referral Summary ---
Author Organization [facility] Address [address] [facility] [place] [address] Care Team Providers Care Internet Marketing Assistant Name Role Phone Tristin Ghotra MD Primary Care Provider [phone] Source Comments [facility]non-owned Affiliates and Associated Physician Practices is amultiple site organization consisting of ambulatory clinics and hospital sitesin [place], [place], [place] and [place]. This disclosure is being madepursuant to the Care Everywhere program and may not contain all information available regarding this patient. Last updated [facility] Allergies No known active allergies Medications * Be aware that medications may not be up to date on this document. Alwaysverify current medications with the patient. Medication Sig Dispensed Refills Start Date End Date Status spironolactone (ALDACTONE) 100 MG tablet Take 100 mg by mouth once daily Active clobetasol propionate (CLOBEX) 0.05 % shampoo by Apply externally route as needed Active NON FORMULARY REQUEST Nutrafol Active aspirin (ASPIRIN) 81 MG chew tablet Take 1 tablet by mouth every Monday, Monday & Monday05/31/2019 Active pantoprazole EC (PROTONIX) 40 MG tablet Take 40 mg by mouth once daily Active Active Problems Problem Noted Date Diagnosed Date Elevated LFTs 09/06/2017 History of SD (myocardial infarction) 09/06/2017 Overview (09/07/2017): Echo 09/2013 - EF 55-60%, anteroapical hypokinesis , nl chamber sizes, no valve problems Stress Echo 04/2015 - Mild apical inferior, apical septal hypokinesis, overall normal LVEF 58%, nl chamber sizes, no valve abnormalities, PASP 28 mmHg. Walked 12 min. Clinically/EKG negative. Images very mildly abnormal thought due to scar more than new ischemia. Spontaneous dissection of coronary artery 2017 Essential hypertension 09/06/2017 Overview (04/11/2018): Home PSG 01/2018 - Normal limits. No sleep apnea. S/P coronary artery stent placement 09/06/2017 Overview (09/07/2017): Cath 09/21/2013 - LVEDP 20, EF 55%. Nl aortic root w/ no dissection. Spontaneous dissection of the LAD proximal to mid, involving a diagonal. Stented w/ bare metal stents x 2. Cath 09/23/2017 - Patent LAD stents w/ MIKALA 3 flow (improved). History of near syncope 09/06/2017 Social History Tobacco Use Types Packs/Day Years Used Date Smoking Tobacco: Never Alcohol Use Standard Drinks/Week Comments Yes 0 (1 standard drink = 0.6 oz pur e alcohol) Social Sex and Gender Information Value Date Recorded Sex Assigned at Not on file Gender Identity Not on file Sexual Orientation Not on file Last Filed Vital Signs Vital Sign Reading Time Taken Comments Blood Pressure 117/85 12/05/2019 12:52 PM CDT Pulse 60 12/05/2019 12:09 PM CDT Temperature - - Respiratory Rate - - Oxygen Saturation 98% 12/05/2019 12:09 PM CDT Inhaled Oxygen Concentration - - Weight 68.5 kg (151 lb) 12/05/2019 12:09 PM CDT Height 175.3 cm (5' 9 ) 12/05/2019 12:09 PM CDT Body Mass Index 22.3 12/05/2019 12:09 PM CDT Plan of Treatment Not on file Care Teams Internet Marketing Assistant Relationship Specialty Start Date End Date Tristin Ghotra MD [address] [facility] [address] [place] [address] PCP - General 04/04/12
--- OUTSIDE RECORDS SUMMARY | 2024-02-18 03:23 | XMS_ITS | Encounter Summary ---
Author Organization [facility] Address [address] [place] [address] Care Team Providers Care Crime Scene Investigator Name Role Phone Tristin Ghotra MD Primary Care Provider [phone] Reason for Visit * Reason Onset Date Comments MEDICATION REFILL 11/21/2018 Encounter Details Date Type Department Care Team (Late st Contact Info) Description 11/21/2018 [facility] - [address], [facility] [address] [place] [phone] Matt Armstorng MD [address] [place] [address] MEDICATION REFILL Social History Tobacco Use [...] on filedocumented in this encounter Care Teams Crime Scene Investigator Relationship Specialty Start Date End Date Tristin Ghotra MD [address] [place] [address] [address] [place] [address] PCP - General 04/04/12 documented as of this encounter
--- OUTSIDE RECORDS SUMMARY | 2024-02-18 03:23 | XMS_ITS | Encounter Summary ---
Author Organization [facility] Address [address] [place] [address] Care Team Providers Care Flaring Machine Operator Name Role Phone Tristin Ghotra MD Primary Care Provider [phone] Reason for Visit * Reason Onset Date Comments Results 04/11/2018 Sleep study Encounter Details Date Type Department Care Team (Late st Contact Info) Description 04/11/2018 Telephone [facility] - [address], [facility] [address] [place] [phone] Matt Armstrong MD [address] [place] [address] Results (Sleep study) Social History Tobacco Use Types Packs/Day Years [...] * Telephone Encounter - Roxanne Epperson - 04/11/2018 4:18 PM CST Spoke with patient who was told her in-home sleep study ordered by Dr. Ghotra was within normal limits- no sleep apnea. She was pleased and thanked me for calling. RANCE CLAIM AUDITOR documented in this encounter Plan of Treatment Not on file documented as of this encounter Visit Diagnoses Not on filedocumented in this encounter Care Teams Flaring Machine Operator Relationship Specialty Start Date End Date Tristin Ghotra MD [address] [facility] [address] [place] [address] PCP - General 04/04/12 documented as of this encounter
--- OUTSIDE RECORDS SUMMARY | 2024-02-18 03:23 | XMS_ITS | Encounter Summary ---
Author Organization [facility] Address [address] [place] [address] Care Team Providers Care Anesthesiology Physician Name Role Phone Tristin Ghotra MD Primary Care Provider [phone] Reason for Visit * Reason Onset Date Comments Consent 05/27/2019 Pt. voiced under standing of TELEmed and gave verbal consent. Encounter Details Date Type Department Care Team (Late st Contact Info) Description 05/27/2019 Telephone [facility] - [address], [facility] [address] [place] [address] Matt Armstrong MD [address] [place] [address] Consent (Pt. voiced understanding of TELEmed and gave verbal consent.) Social History Tobacco Use Types Packs/Day Years [...] on filedocumented in this encounter Care Teams Anesthesiology Physician Relationship Specialty Start Date End Date Tristin Ghotra MD [address] [place] [address] TERRY W[address]DO [address] [place] [phone] PCP - General 04/04/12 documented as of this encounter
--- OUTSIDE RECORDS SUMMARY | 2024-02-18 03:23 | XMS_ITS | Encounter Summary ---
Author Organization [facility] Address [address] [place] [address] Care Team Providers Care Highway Maintenance Technician Name Role Phone Tristin Ghotra MD Primary Care Provider [phone] Encounter Details Date Type Department Care Team (Late st Contact Info) Description 04/19/2012 Hospital Outpatient Visit [facility] DEFAULT [address] [place] [address] Caro Pa MD [facility] [address] [place] [address] Social History Tobacco Use Types Packs/Day Years Used Date Smoking Tobacco: Never Assessed Sex and Gender Information Value Date Recorded Sex Assigned at Not on file Gender Identity Not on file Sexual Orientation Not on file documented as of this encounter Plan of Treatment Not on file documented as of this encounter Visit Diagnoses Not on filedocumented in this encounter Care Teams Highway Maintenance Technician Relationship Specialty Start Date End Date Tristin Ghotra MD [address] [place] [address] [address] [place] [phone] PCP - General 04/04/12 documented as of this encounter
--- OUTSIDE RECORDS SUMMARY | 2024-02-18 03:23 | XMS_ITS | Continuity of Care Document ---
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) - 01/03/24 Essential hypertension(Discharge Diagnosis) - 01/03/24 History of UT (myocardial infarction)(Discharge Diagnosis) - 01/03/24 S/P coronary artery stent placement(Discharge Diagnosis) - 01/03/24 Elevated LFTs(Discharge Diagnosis) - 01/03/24 Discharge Disposition: Home or Self Care Attending Physician: Matt Armstrong MD Referring Physician: Matt Armstrong MD Allergies, Adverse Reactions, Alerts No Known Allergies Assessment and Plan Future Appointments Appointment Date:01/07/2025 02:30:00 PM Scheduled Provider:Matt Armstrong MD Location:[facility] Appointment Type:[facility] Follow Up Medications Airsupra inhaler PRN Airsupra inhaler PRN Start Date: 01/04/24 Status: Ordered albuterol 90 mcg/inh inhalation powder 2 puff(s), Inhalation, [id number], PRN, 1 each, Inhaler, 0, shortness of breath, Fast Breath???inhale quickly and deeply Start Date: 12/21/21 Status: Ordered amLODIPine 5 mg oral tablet 5 mg, 1 tablet(s), Oral, daily, 30 tablet(s), Tablet(s), 0 Start Date: 12/21/21 Status: Ordered Amphet Salts 20 mg ER cap Amphet Salts 20 mg ER cap Start Date: 01/04/24 Status: Ordered losartan 50 mg oral tablet 50 mg, 1 tablet(s), Oral, daily, 90 tablet(s), Tablet(s), 0, 0, Do Not Route Start Date: 01/04/24 Status: Ordered Problem List Condition Confirmation Course Effective Dates Status Health St atus Informant Childhood asthma Confirmed Active Spontaneous dissection of coronary artery Confirmed Active Essential hypertension Confirmed Active History of UT (myocardial infarction) Confirmed Active S/P coronary artery stent placement Confirmed Active Elevated LFTs Confirmed Active Procedures Procedure Date Related Diagnosis Body Site Status Appendectomy Completed Cholecystectomy Completed Insertion of coronary artery stent Completed Vital Signs Most recent to oldest [Reference Range]: 1 Peripheral Pulse Rate [60-100 bpm] 73 bp m (01/04/24 2:53 PM) Blood Pressure [89-139/60-90 mm Hg] 154/ 85mm Hg *H* (01/04/24 2:53 PM) Height 175 cm (01/04/24 2:53 PM) Weight 63.6 kg (01/04/24 2:53 PM) Social History Social History Type Response Alcohol Current some day alc ohol user, Social Substance Abuse Never drug user Smoking Status Never smoker;Never; Tobacco Cessation Counseling Requested N/A entered on: 01/04/24 Sex Sex Representation Female (finding) Note * Event Display: Privacy Practice Authored Date: * Event Display: Consent/Registration Forms * Event Display: Consent/Registration Forms Cardiology Outpatient Note * Matt Armstrong MD: PERFORM Event Display: Cardiology Office/Clinic Note Authored Date: Patient Information Name:PAOLA MCKEON V Address: [address] [place] [address] [address] [place], [place] [id number] Sex:Female Date of :1975 Emergency Contact:RENU MCKEON Location:[facility] Registration Date and Time:01/04/2024 14:07 AGRICULTURAL AGENT Primary Care Physician: Tristin Ghotra M.D., Attending Physician: Matt Armstrong MD, Chief Complaint Follow-up spontaneous dissection of coronary artery History of Present Illness Paola Mckeon follows for HTN, prior near syncope and prior UT and stenting due to spontaneous coronary dissection ?? Update:?Reports feeling good . SOB due to asthma - uses inhaler PRN but usually at least 1x/day. Some days albuterol helps, some days not. Has cough on infrequet days. Never hears self wheezelately. Energy level a little better. BP running higher at a recent doctor's visit. Denies CP, swelling, palps. Some lightheadedness with standing. No recent surgeries/hospitalizations. Exercises 6x/week. Recommended Losartan 25 to BID, but she has not done that yet - still take 25 mg qday. ?? Exercise:??Works out 6d/week for 2-2.5 hours.?? States it is not intense.?? Feels well working out. ? Heartburn essentially gone.?Still frustrated by hair loss. Reports hormone levels stable. Has seen multiple Dermatologists. ?? Longitudinal care is provided today for patient's serious ongoing issues.?This office is the continuing focal point for these health services, providing continuity of care for multiple complex issues.?See Summary/Plan section.?Follow up visit arranged. ?? Social History? in 2003. 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 Never smoker. ? Cardiac Testing? Echo 07/2020 - LVEF 50%, mild SVETA (thought likely related to regular exercise), nl LV diastolic function, mild MR, RVSP 29 mmHg Cath 09/23/2017 - Patent LAD stents w/ MIKALA 3 flow (improved).?? Stress Echo 04/2015 - Mild apical inferior, apical septal hypokinesis, overall normal LVEF 58%, nl chamber sizes, no valve abnormalities, PASP 28 mmHg. Walked 12 min. Clinically/EKG negative. ??Imagesvery mildly abnormal thought due to scar more than new ischemia. Echo 09/2013 - EF 55-60%, anteroapical hypokinesis , nl chamber sizes, no valve problems?? Cath 09/21/2013 - LVEDP 20, EF 55%. Nl aortic root w/ no dissection. Spontaneous dissection of the LAD prox to mid, involving a diagonal. ??Stented w/ bare metal stents x 2. ?Exam ??General - Pleasant, NAD ??Eyes - sclerae anicteric ??HENT/Neck - atraumatic head, JVP normal, carotids 2+ without bruit ??CV - regular, normal rate, no M/R/G ??Chest - CTA bilaterally ??Abdomen - thin, soft, NT, Ao not enlarged, no HJR, no??hepatomegaly ??MSK/Extremities - no cyanosis, clubbing or edema ??Vascular - 2+ x bilateral radial & pedal pulses ??Neuro - Alert, interactive, appropriate ??Derm - no rash ? Assessment and Plan Spontaneous dissection of coronary artery Essential hypertension History of UT (myocardial infarction) S/P coronary artery stent placement History of near syncope Elevated LFTs, chronically ? -??Spontaneous Coronary Artery Dissection (SCAD) and coronary status thought stable, with no recurrence of suggestive coronary symptoms. -??Asthma and allergies.?? On inhalers with Dr. Ghotra. -??HTN stable at home on infrequent checks but up here.?? -??She prefers to change Losartan from 25 mg qday to 50 mg qday. - Patient was advised of medication rationale for use, potential side effects and alternatives. - Continue ASA 81 to q MWF or qday if does not bother abdomen. -??Taking Spironolactone at high dose per Cigarette Packer for hair loss and scalp yeast. -??Spell of near passing out in early 2018 sounds vagal, as had been previously suggested to her. Iadvised of physiology, common occurrence, avoidance tactics and maneuvers.?? - Exercise tolerance remains fantastic. -??Advised of potential future CV symptoms for which the patient should seek urgent help. -??Routine f/u in 12 mo. Vitals and Measurements Vital Signs Height: 175 cm Height Inches Conversion: 68.9 Weight: 63.6 kg Weight in Pounds (kg conversion): 139.9 Body Surface Area: 1.7583 m2 Body Mass Index: 20.77 kg/m2 Systolic Blood Pressure:??154 mm Hg??High Diastolic Blood Pressure: 85 mm Hg Peripheral Pulse Rate: 73 bpm Oxygen Saturation: 99 % Assessment/Plan 1.??Spontaneous dissection of coronary artery 2.??Essential hypertension 3.??History of UT (myocardial infarction) 4.??S/P coronary artery stent placement 5.??Elevated LFTs Orders: losartan(losartan 50 mg oral tablet), 50 mg= 1 tablet(s), Oral, daily Problem List/Past Medical History Ongoing Childhood asthma Elevated LFTs Essential hypertension History of UT (myocardial infarction) S/P coronary artery stent placement Spontaneous dissection of coronary artery Historical No qualifying data Procedure/Surgical History ???Appendectomy???Cholecystectomy???Insertion of coronary artery stent Medications Airsupra inhaler PRN albuterol 90 mcg/inh inhalation powder, 2 puff(s), Inhalation, [id number], PRN amLODIPine 5 mg oral tablet, 5 mg= 1 tablet(s), Oral, daily Amphet Salts 20 mg ER cap losartan 50 mg oral tablet, 50 mg= 1 tablet(s), Oral, daily Allergies NKA Social History Alcohol Current some day alcohol user, Social, 01/04/2024 Substance Abuse Never drug user, 01/04/2024 Tobacco Never smoker, Smokeless Tobacco use: Never. N/A Cessation Counseling., 01/04/2024 Family History ?Mother ?Positive ?Hypertension ?Sister ?Positive ?Hypertension ? Voice to Text Technology Disclaimer This note may contain text inserted via Dragon or other voice to text assistive technology and straight ruling machine operator, variances may occur. Patient Care team information Care Team Personnel Name: Tristin Ghotra M.D. Position: [facility] FAX ONLY - MD NOT ON STAFF Member Role: Primary Care Physician Address: [address] [facility] [address] [place] [address] [place] Name: Matt Armstrong MD Position: Physician - Cardiology Member Role: Specialist Physician Address: [address] [facility] [address] [place] [address] [place] Name: Dora Wilson CARDIOLOGY SPECIALIST Position: [facility] CARDIOLOGY SPECIALIST/[place] Member Role: Nurse Practitioner Address: [address] [place] [address] [place] Name: Matt Armstrong MD Position: Physician - Cardiology Med Service: [employer] Consultant Hyperion Administrator Role: Attending Physician Address: [address] Care Team Related Persons Name: RENU MCKEON Insurance Providers Guarantor name: PAOLA MCKEON Health Plan Information #: 1 Payer: Melissa Member Number: [id number] Policy Number: NA Health Plan Information #: 2 Payer: [employer] Member Number: [id number] Policy Number: NA
--- OUTSIDE RECORDS SUMMARY | 2024-02-18 03:23 | XMS_ITS | Encounter Summary ---
Author Organization [facility] Address [address] [place] [address] Care Team Providers Care Tire Changer Aircraft Name Role Phone Tristin Ghotra MD Primary Care Provider Reason for Visit * Reason Comments Follow-up Encounter Details Date Type Department Care Team ([facility] Contact Info) Description 10/18/2017 12:30 PM CDT Office Visit [facility] - [address], [facility] [address] [place] [phone] Matt Armstrong MD [address] [place] [address] [place] [id number] Spontaneous dissection of coronary artery (Primary Dx); Essential hypertension; History of AK (myocardial infarction); History of near syncope; S/P coronary artery stent placement Social History Tobacco Use Types Packs/Day Years [...] Sign Reading Time Taken Comments Blood Pressure 147/97 10/18/2017 12:47 PM CDT Pulse 78 10/18/2017 12:47 PM CDT Temperature - - Respiratory Rate - - Oxygen Saturation 98% 10/18/2017 12:47 PM CDT Inhaled Oxygen Concentration - - Weight 70.3 kg (155 lb) 10/18/2017 12:47 PM CDT Height 175.3 cm (5' 9 ) 10/18/2017 12:47 PM CDT Body Mass Index 22.89 10/18/2017 12:47 PM CDT documented in this encounter Progress Notes * Matt Armstrong MD - 10/18/2017 1:02 PM CDT Images from the original note were not included. Chief Complaint Patient presents with ??? Follow-up History of Present Illness Paola Mckeon is a 42 y.o. female, who follows routinely for HTN, prior near syncope and prior AK and stenting due to spontaneous coronary dissection Weight down 1 lb since last OV BP not checked since med change Was having LIANG with starting Nifedipine, but Liang has now tapered off. BP had been high 130s to 140s systolic. She d/c Ramipril when she started Nifedipine LIANG are better and less frequent lately. No recent liver numbers. No bowel troubles or abd pain. Comprehensive system review is otherwise negative for constitutional, HENT, eyes, neck, musculoskeletal, derm, neuro, cardiovascular, pulmonary, extremities, vascular, endocrine, GI, . Patient Active Problem List Diagnosis Date Noted ??? Elevated LFTs 09/06/2017 Priority: Not Prioritized ??? History of AK (myocardial infarction) 09/06/2017 Priority: Not Prioritized Echo [...] an empty stomach. 30 tablet 5 ??? ramipril (ALTACE) 5 MG capsule Take [...] born in 2004. 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 Family History Problem Relation Age of Onset ??? Hypertension Mother ??? Aneurysm, Brain Sister 51 ??? Hypertension Sister Exam BP 147/97 Pulse 78 Ht 1.753 m (5' 9 ) Wt 70.3 kg (155 lb) SpO2 98% BMI 22.89 kg/m2 Filed Wts: 10/18/17 1247 Weight: 70.3 kg (155 lb) General -- [...] of coronary artery Essential hypertension History of AK (myocardial infarction) History of near syncope S/P coronary artery stent placement 1. Spontaneous Coronary Artery Dissection (SCAD) and [...] 3. Fatigue is of unclear cause still. Unclear if prolonged grief reaction related to her sister's last year. If not better after 4-6 weeks of exercise, she agrees to d/w Dr. Ghotra. 4. If she cannot build her endurance, then further cardiac & metabolic evaluation would seem warranted - e.g. For heart concerns, liver worsening, worse asthma than she realizes, etc 5. HTN still not optimized. She suspects it is often high. She prefers no B- dylan due to possible associated weight gain with Toprol. Given that she has no angina, and has a known normal EF post-AK, no B-dylan is very reasonable. 6. When she started Nifedipine, patient elected to stop Ramipril. 7. She is planning to start exercise w/ Avenda Systemsn osmar and spin for exercise. 8. She promises to start exercising. Follow BPs on Nifedipine 30 mg alone. 9. May need to eventually increase Nifedipine if HAs improve - unclear if LIANG related to BP or Nifedipine or other. 10. Spell of near passing out in early 2018 sounds vagal, as had been previously suggested to her. I advised of physiology, common occurrence, avoidance tactics and maneuvers. Stay well hydrated. 11. She agrees to check back in with her Generator Assembler. 12. Routine f/u with us in 8 weeks. She will call me in a week w/ update on exercise and symptoms. Matt Armstrong III, MD, [facility] [email or web address] * Roxanne Epperson - 10/18/2017 12:46 PM CDT 6 week f/u Weight down 1 lb since last OV BP not checked since med change Was having LIANG with starting Nifedipine, but has now tapered off She d/c Ramipril when she started Nifedipine documented in this encounter Plan of Treatment Not on file documented as of this encounter Visit Diagnoses Diagnosis Spontaneous dissection of coronary artery- Primary Essential hypertension History of AK (myocardial infarction) Old myocardial infarction History of near syncope Personal history of other specified diseases S/P coronary artery stent placement Postsurgical percutaneous transluminal coronary angioplasty status documented in this encounter Care Teams Tire Changer Aircraft Relationship Specialty Start Date End Date Tristin Ghotra MD [address] [facility] [address] [place] [address] PCP - General 04/04/12 documented as of this encounter
--- OUTSIDE RECORDS SUMMARY | 2024-02-18 03:23 | XMS_ITS | Encounter Summary ---
Author Organization [facility] Address [address] [place] [address] Care Team Providers Care Space Sciences Director Name Role Phone Tristin Ghotra MD Primary Care Provider [phone] Reason for Visit * Reason Comments Follow-up Encounter Details Date Type Department Care Team ([facility] Contact Info) Description 12/05/2019 12:00 PM CDT Office Visit [facility] - [address], [facility] [address] [place] [phone] Matt Armstrong MD [address] [place] [address] [place] [id number] Spontaneous dissection of coronary artery (Primary Dx); Essential hypertension; History of PA (myocardial infarction); S/P coronary artery stent placement; History of near syncope; Elevated LFTs Social History Tobacco Use Types [...] Mass Index 22.3 12/05/2019 12:09 PM CDT documented in this encounter Progress Notes * Roxanne Epperson - 12/05/2019 12:08 PM CDT 6 mo f/u Weight down 2 lbs since last OV BP not checked recently SOB and lightheaded a few times while exercising * Matt Armstrong MD - 12/05/2019 12:00 PM CDT Images from the original note were not included. Chief Complaint Patient presents with ??? Follow-up History of Present Illness Paola Mckeon is a 44 year old female, who follows routinely for HTN, prior near syncope and priorMI and stenting due to spontaneous coronary dissection Weight down 2 lbs since last OV BP not checked recently SOB and lightheaded a few times while exercising - but decreasing after stopping music. Drinks a lot of water. Denies chest pain or trapezius pain. Stress is better overall. Diet - Bad... I eat whatever I want. Snacks on chips, cake, donuts, candy. But also eats carrots,other veggies. Minimal meat. Exercise - Works out on a Max Gas Booster Engineer 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 Also does light weights and stretch bands. Takes her time, but whole workout takes up to 2.5 hours. Heartburn worse despite no ASA frequently. No bowel or bladder troubles. Menses are irregular, lessheavy but more persistent - Hopper Operator follow-up planned. Comprehensive system review is otherwise negative for constitutional, HENT, eyes, neck, musculoskeletal, derm, neuro, cardiovascular, pulmonary, extr emities, vascular, endocrine, GI, . Patient Active Problem List Diagnosis Date Noted ??? Elevated LFTs 09/06/2017 Priority: Not Prioritized ??? History of PA (myocardial infarction) 09/06/2017 Priority: Not Prioritized Echo [...] Current Outpatient Medications Medication Sig Dispense Refill ? ? aspirin (ASPIRIN) 81 MG chew tablet Take 1 tablet by mouth every Monday, Monday & Monday ??? clobetasol propionate (CLOBEX) 0.05 % shampoo by Apply externally route as needed ??? NON FORMULARY REQUEST Nutrafol ??? pantoprazole EC (PROTONIX) 40 MG tablet Take 40 mg by mouth once daily ??? spironolactone (ALDACTONE) 100 MG tablet Take [...] file Gets together: Not on file Attends alevism service: Not on file Active member of [...] born in 2004. 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 Family History Problem Relation Name Age of Onset ??? Hypertension Mother ??? Aneurysm, Brain Sister 51 ??? Hypertension Sister Exam BP 117/85 Pulse 60 Ht 1.753 m (5' 9 ) Wt 68.5 kg (151 lb) SpO2 98% BMI 22.3 kg/m2 Filed Wts: 12/05/19 1209 Weight: 68.5 kg (151 lb) General -- Pleasant, NAD Eyes -- sclerae anicteric HENT/Neck -- atraumatic head, JVP normal, carotids 2+ without bruit CV -- regular, normal rate, no M/R/G Chest -- CTA bilaterally Abdomen -- ND, soft, NT, Ao not enlarged, no HJR, liver not obviously large today MSK/Extremities -- no cyanosis, clubbing or edema Vascular -- 2+ x bilateral radial & pedal pulses Neuro -- Alert, interactive, appropriate Derm -- no rash Assessment and Plan Spontaneous dissection of coronary artery Essential hypertension History of PA (myocardial infarction) S/P coronary artery stent placement History of near syncope Elevated LFTs 1. Spontaneous Coronary Artery Dissection [...] asthma eval and Rx. 5. HTN historically, but better with improved exercise - despite stopping Nifedipine. 6. Irritated gastric lining described may be in part due to ASA 81 mg daily. Rec she decrease ASA 81 to q MWF, in addition to taking antacid as advised. 7. Forgets to take ASA. I rec she resume ASA 81 mg qday. I suspect statins have been avoided in thepast due to liver problems. Given the liver history, and the relative lack of knowledge if statins impact the risk of recurrent SCAD, I suggest no statin now. 8. Fatigue persists. Had a sleep study with Dr. Ghotra but she is unsure of results. 9. Taking Spironolactone at high dose per Grain Elevator Man for hair loss and scalp yeast. 10. Again encouraged thoughtful, consistent hydration. 11. Encouraged her much better exercise at moderate intensity. OK to decrease total exercise time. 12. Spell of near passing out in early 2018 sounds vagal, as had been previously suggested to her. I advised of physiology, common occurrence, avoidance tactics and maneuvers. 13. Again, counseled potential future symptoms of heart concern for which patient agrees to get prompt care. 14. Routine f/u in 12 mo. Matt Armstrong III, MD, [facility] [email or web address] documented in this encounter Plan of Treatment Not on file documented as of this encounter Visit Diagnoses Diagnosis Spontaneous dissection of coronary artery- Primary Essential hypertension History of PA (myocardial infarction) Old myocardial infarction S/P coronary artery stent placement Postsurgical percutaneous transluminal coronary angioplasty status History of near syncope Personal history of other specified diseases Elevated LFTs Other abnormal blood chemistry documented in this encounter Care Teams Space Sciences Director Relationship Specialty Start Date End Date Tristin Ghotra MD [address] [place] [address] [address] [place] [phone] PCP - General 04/04/12 documented as of this encounter
--- OUTSIDE RECORDS SUMMARY | 2024-02-18 03:23 | XMS_ITS | Continuity of Care Document ---
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) - 12/27/22 Essential hypertension(Discharge Diagnosis) - 12/27/22 History of SC (myocardial infarction)(Discharge Diagnosis) - 12/27/22 S/P coronary artery stent placement(Discharge Diagnosis) - 12/27/22 Elevated LFTs(Discharge Diagnosis) - 12/27/22 Discharge Disposition: Home or Self Care Attending Physician: Matt Armstrong MD Referring Physician: Matt Armstrong MD Allergies, Adverse Reactions, Alerts No Known Allergies Assessment and Plan Future Appointments Appointment Date:12/28/2023 12:00:00 PM Scheduled Provider:Matt Armstrong MD Location:[facility] Appointment Type:[facility] Follow Up Medications Adderall XR 10 mg oral capsule, extended release 10 mg, 1 capsule(s), Oral, daily, 30 capsule(s), 0, 0 Start Date: 12/27/22 Status: Ordered albuterol 90 mcg/inh inhalation powder 2 puff(s), Inhalation, [id number], PRN, 1 each, Inhaler, 0, shortness of breath, Fast Breath???inhale quickly and deeply Start Date: 12/21/21 Status: Ordered amLODIPine 5 mg oral tablet 5 mg, 1 tablet(s), Oral, daily, 30 tablet(s), Tablet(s), 0 Start Date: 12/21/21 Status: Ordered losartan 25 mg oral tablet 1 tablet(s), Oral, daily, 90 tablet(s), 3, Route to Pharmacy Electronically, [id number], [id number], 175, cm, 12/21/21 10:15:00 CDT, Height, 69.5, kg, 12/21/21 10:15:00CDT, Weight Start Date: 12/21/22 Status: Ordered Problem List Condition Confirmation Course Effective Dates Status Health St atus Informant Childhood asthma Confirmed Active Spontaneous dissection of coronary artery Confirmed Active Essential hypertension Confirmed Active History of SC (myocardial infarction) Confirmed Active S/P coronary artery stent placement Confirmed Active Elevated LFTs Confirmed Active Procedures Procedure Date Related Diagnosis Body Site Status Appendectomy Completed Cholecystectomy Completed Insertion of coronary artery stent Completed Vital Signs Most recent to oldest [Reference Range]: 1 Peripheral Pulse Rate [60-100 bpm] 81 bp m (12/27/22 2:11 PM) Blood Pressure [89-139/60-90 mm Hg] 136/ 75mm Hg (12/27/22 2:11 PM) Height 175 cm (12/27/22 2:11 PM) Weight 63.2 kg (12/27/22 2:11 PM) Social History Social History Type Response Alcohol Current some day alc ohol user, Social Substance Abuse Never drug user Smoking Status Never smoker;Never; Tobacco Cessation Counseling Requested N/A entered on: 12/27/22 Sex Note * Event Display: Consent/Registration Forms Authored Date: * Event Display: Consent/Registration Forms Authored Date: * Event Display: Privacy Practice Authored Date: Cardiology Outpatient Note * Matt Armstrong MD: PERFORM Event Display: Cardiology Office/Clinic Note Authored Date: Patient Information Name:MELINDAPAOLA V Address: [address] [place] [address] [address] [place], [place] [id number] Sex:Female Date of :1975 Emergency Contact:RENU MCKEON Location:[facility] Registration Date and Time:12/27/2022 13:54 PERSONNEL MONITOR Primary Care Physician: Tristin Ghotra M.D., Attending Physician: Matt Armstrong MD, Chief Complaint Follow-up spontaneous dissection of coronary artery History of Present Illness Paola Mckeon follows for HTN, prior near syncope and prior SC and stenting due to spontaneous coronary dissection ?? Update:? JACQUES due to asthma - same as previously. States it is an allergy- induced asthma due to seasonal allergens and her cat (which she intends to keep).?? Gained weight on steroid inhaler.?? Uses Albuterol BID + pre-workout, which seems to help.?? No wheezing or cough.?? They vacuum daily.?? Breathing w/ workouts seems appropriate for level of effort. ?? Energy level low. Does not check BP. Denies CP, swelling, palps. Lightheadedness when not eating. No recent surgeries/hospitalizations. Recent labs through PCP. Weight down 13 lbs since last OV.?? Adderall at lower dose BID seems to help focus, etc some.?? Has changed diet a lot - much less grazingw/ food/sweets. ?? Exercise - Exercises 5-6x/week on stair stepper/elliptical x 1 hr +??bands. ? Heartburn in plast.?Still frustrated by hair loss. Reports hormone levels stable. Has seen multiple Dermatologists. ?? Social History? in 2003. 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 Never smoker. ? [...] of coronary artery Essential hypertension History of SC (myocardial infarction) S/P coronary artery stent placement History of near syncope Elevated LFTs ? -??Spontaneous Coronary Artery Dissection (SCAD) and coronary status thought stable, with no recurrence of suggestive coronary symptoms. -??Asthma and allergies.?? On inhalers with Dr. Ghotra. -??HTN not controlled.?? Increase current Amlodipine.?? Recommend addition of ARB. - Patient was advised of medication rationale for use, potential side effects and alternatives. - Comprehensive labs planned w/ Dr. Ghotra in next 2 months.?? She will get us copies. - Continue ASA 81 to q MWF or qday if does not bother abdomen. -??Taking Spironolactone at high dose per Fish Hatchery Specialist for hair loss and scalp yeast. -??Spell [...] 175 cm Height Inches Conversion: 68.9 Weight: 63.2 kg Weight in Pounds (kg conversion): 139 Body Surface Area: 1.7528 m2 Body Mass Index: 20.64 kg/m2 Systolic Blood Pressure: 136 mm Hg Diastolic Blood Pressure: 75 mm Hg Peripheral Pulse Rate: 81 bpm Oxygen Saturation: 99 % Assessment/Plan 1.??Spontaneous dissection of coronary artery 2.??Essential hypertension 3.??History of SC (myocardial infarction) 4.??S/P coronary artery stent placement 5.??Elevated LFTs Problem List/Past Medical History Ongoing Childhood asthma Elevated LFTs Essential hypertension History of SC (myocardial infarction) S/P coronary artery stent placement Spontaneous dissection of coronary artery Historical No qualifying data Procedure/Surgical History ???Appendectomy???Cholecystectomy???Insertion of coronary artery stent Medications Adderall XR 10 mg oral capsule, extended release, 10 mg= 1 capsule(s), Oral, daily albuterol 90 mcg/inh inhalation powder, 2 puff(s), Inhalation, [id number], PRN amLODIPine 5 mg oral tablet, 5 mg= 1 tablet(s), Oral, daily losartan 25 mg oral tablet, 1 tablet(s), Oral, daily Allergies NKA Social History Alcohol Current some day alcohol user, Social, 12/27/2022 Substance Abuse Never drug user, 12/27/2022 Tobacco Never smoker, Smokeless Tobacco use: Never. N/A Cessation Counseling., 12/27/2022 Family History ?Mother ?Positive ?Hypertension ?Sister ?Positive ?Hypertension ? Voice to Text Technology Disclaimer This note may contain text inserted via Dragon or other voice to text assistive technology and crt, variances may occur. Patient Care team information Care Team Personnel Name: Tristin Ghotra M.D. Position: ZZ FAX ONLY - MD NOT ON STAFF Member Role: Primary Care Physician Address: Address: [address] [place] [address] Name: Matt Armstrong MD Position: Physician - Cardiology Member Role: Specialist Physician Address: Address: [address] [place] [address] Name: Dora Wilson MEDICAL PHYSICS RESEARCHER Position: AMB MEDICAL PHYSICS RESEARCHER/PA Member Role: Nurse Practitioner Address: Address: [address] [place] [address] Name: Matt Armstrong MD Position: Physician - Cardiology Med Service: Machine Woodworking Sander Crm System Administrator Role: Attending Physician Address: Address: [address] [place] [address] Care Team Related Persons Name: RENU MCKEON Address: home [address] [place], [place] [id number] [place]
--- OUTSIDE RECORDS SUMMARY | 2024-02-18 03:23 | XMS_ITS | Patient Health Summary ---
Author Organization [facility] Address [address] [place] [address] Care Team Providers Care Chick Room Supervisor Name Role Phone Tristin Ghotra MD Primary Care Provider [phone] Note from [facility],non-owned Affiliates and Associated Physician Practices is amultiple site organization consisting of ambulatory clinics and hospital sitesin [place], [place], [place] and [place]. This disclosure is being madepursuant to the Care Everywhere program and may not contain all information available regarding this patient. Last updated 17.[facility] Allergies No known active allergies Medications * Be aware that medications may not be up to date on this document. Alwaysverify current medications with the patient. * spironolactone (ALDACTONE) 100 MG tablet Take 100 mg by mouth once daily * clobetasol propionate (CLOBEX) 0.05 % shampoo by Apply externally route as needed * NON FORMULARY REQUEST Nutrafol * aspirin (ASPIRIN) 81 MG chew tablet(Started 05/31/2019) Take 1 tablet by mouth every Monday, Monday & Monday * pantoprazole EC (PROTONIX) 40 MG tablet Take 40 mg by mouth once daily Active Problems Problem Noted Date Diagnosed Date Elevated LFTs 09/06/2017 History of IA (myocardial infarction) 09/06/2017 Spontaneous dissection of coronary artery 2017 Essential hypertension 09/06/2017 S/P coronary artery stent placement 09/06/2017 History of near syncope 09/06/2017 Social History [...] Mass Index 22.3 12/05/2019 12:09 PM CDT Procedures * LAB MISC TEST(Performed 11/23/2017) * HOME SLEEP STUDY(Performed 04/03/2017) * EKG 12-LEAD(Performed 09/28/2016) * ECHO COMPLETE(Performed 05/20/2015) * LAB MISC TEST(Performed 05/20/2015) * LAB MISC TEST(Performed 05/20/2015) * EKG 12-LEAD(Performed 10/09/2013) * LAB MISC TEST(Performed 09/24/2013) * EKG 12-LEAD(Performed 09/23/2013) * ANGIOGRAM(Performed 09/23/2013) * EKG 12-LEAD(Performed 09/22/2013) * ECHO COMPLETE(Performed 09/21/2013) * EKG 12-LEAD(Performed 09/21/2013) * EKG 12-LEAD(Performed 09/20/2013) * CULTURE MRSA(Performed 09/19/2013) * CARDIAC CATHETERIZATION, LEFT(Performed 09/19/2013) * ECHO COMPLETE(Performed 09/19/2013) * EKG 12-LEAD(Performed 09/19/2013) * LAB MISC TEST(Performed 09/19/2013) * LAB MISC TEST(Performed 03/21/2012) * LAB MISC TEST(Performed 01/14/2012) * LAB MISC TEST(Performed 05/08/2009) * LAB MISC TEST(Performed 04/17/2009) Results * LAB MISC TEST (11/23/2017) Only the most recent of9 resultswithin the time period is included. Blood BLOOD SPECIMEN / Unknown Provider Unknown LAB SEND OUT * HOME SLEEP STUDY (04/03/2017) Historical Provider [facility] * EKG 12-LEAD (09/28/2016) Only the most recent of7 resultswithin the time period is included. Mason Waldrop MD ECG ORDERABLES * ECHO COMPLETE (05/20/2015) Only the most recent of3 resultswithin the time period is included. Mason Waldrop MD ECHO ORDERABLES * ANGIOGRAM (09/23/2013) Provider Unknown CARDIAC SERVICES ORD ERABLES * CULTURE MRSA (09/19/2013 5:20 PM CDT) Culture MRSA Screen No Growth of Methicillin Resistant Staphylococcus aureus. [facility] Nasopharyngeal 09/19/2013 5: 20 PM CDT 09/19/2013 9:27 PM CDT Narrative [facility] - 09/21/2013 11:19 AM CDT AndersonSpecimen#[id number] Joselito Loc/Rm/Bed: ICU/ICU/01 Historical Provider LAB - MICROBIOLOG Y ORDERABLES Performing Organization Address City/State/[facility] Co de Phone Number [facility] [address] [phone] * CARDIAC CATHETERIZATION, LEFT (09/19/2013) Provider Unknown GENERIC SURGICAL HIS TORY Care Teams Chick Room Supervisor Relationship Specialty Start Date End Date Tristin Ghotra MD [address] [place] [address] [address] [place] [address] PCP - General 04/04/12
--- OUTSIDE RECORDS SUMMARY | 2024-02-18 03:23 | XMS_ITS | Clinical Summary ---
Author Organization [facility] Address [address] [place] [address] Care Team Providers Care Ground Host/Hostess Name Role Phone Tristin Ghotra MD Primary Care Provider [phone] Source Comments [facility],non-owned Affiliates and Associated Physician Practices is amultiple site organization consisting of ambulatory clinics and hospital sitesin [place], [place], [place] and [place]. This disclosure is being madepursuant to the Care Everywhere program and may not contain all information available regarding this patient. Last updated 17.[facility] Allergies No known active allergies Medications * [...] Diagnosed Date Elevated LFTs 09/06/2017 History of NM (myocardial infarction) 09/06/2017 Overview (09/07/2017): Echo 09/2013 [...] flow (improved). History of near syncope 09/06/2017 Family History Medical History Relation Name Comments Hypertension Mother Aneurysm, Brain Sister 1 Hypertension Sister 1 Relation Name Status Comments Brother Alive Father Maternal Grandfather Maternal Grandmother Mother Paternal Grandfather Paternal Grandmother Sister 1 Sister 2 Alive Social History Tobacco Use Types Packs/Day Years [...] 12/05/2019 12:09 PM CDT Plan of Treatment Health Maintenance Due Date Last Done Comments COLOGUARD (AGES 45-75) - COL ON CA SCREENING 1975 COLON MONITORING 1975 COLONOSCOPY - COLON CA SCREENING 1975 CT COLONOGRAPHY - COLON CA SCREENING 1975 Colorectal Cancer Screening 1975 FIT - COLON CA SCREENING 1975 FLEX SIG - COLON CA SCREENING 1975 MAMMOGRAM 1975 PAP SMEAR 1975 HIV SCREENING 02/03/1991 HEPATITIS C SCREENING 01/30/1994 DTAP/TDAP/TD VACCINES (1 - Tdap) 02/03/1995 HEPATITIS B VACCINE (1 of 3 - 19+ 3-dose series) 02/03/1995 DEPRESSION SCREENING 02/20/2023 COVID-19 VACCINE (1 - 2023-2 5 season) 2023 INFLUENZA VACCINE (#1) 2023 ZOSTER VACCINE (1 of 2) 02/03/2026 HIB VACCINE Aged Out No longer eligi ble based on patient's age to complete this topic HPV VACCINE Aged Out No longer eligi ble based on patient's age to complete this topic MENINGOCOCCAL VACCINE Aged Out No leoncio mitch eligible based on patient's age to complete this topic PNEUMOCOCCAL VACCINE Aged Out No long er eligible based on patient's age to complete this topic Care Teams Ground Host/Hostess Relationship Specialty Start Date End Date Tristin Ghotra MD [address] [place] [address] [address] [place] [address] PCP - General 04/04/12
--- OUTSIDE RECORDS SUMMARY | 2024-02-18 03:25 | XMS_ITS | Encounter Summary ---
Author Organization [facility] Address [address] [place] [address]. [place], [place] [address] [place] [address] Care Team Providers Care Air Traffic Control Specialist Center Name Role Phone Tristin Ghotra MD Primary Care Provider [phone] Encounter Details Date Type Department Care Team (Latest Contact Info) Description 08/21/2020 Travel Social History Tobacco Use Types Packs/Day Years Used Date Smoking Tobacco: Never Assessed Comments Unknown Sex and Gender Information Value Date Recorded Sex Assigned at Not on file Legal Sex Female 4:11 PM CDT Gender Identity Not on file Sexual Orientation Not on file COVID-19 Exposure Response Date Recorded In the last month, have you been in contact with someone who was confirmed or suspected to have Coronavirus / COVID-19? No / Unsure 08/21/2020 3:04 PM CDT documented as of this encounter Plan of Treatment Not on file documented as of this encounter Visit Diagnoses Not on filedocumented in this encounter Care Teams Air Traffic Control Specialist Center Relationship Specialty Start Date End Date Tristin Ghotra MD [address] [facility] [address] [place] [address] PCP - General 02/18/13 documented as of this encounter
--- OUTSIDE RECORDS SUMMARY | 2024-02-18 03:25 | XMS_ITS | Encounter Summary ---
Author Organization [facility] Address [address] [place] [address]. [place], [place] [address] [place] [address] Care Team Providers Care Test Desk Trouble Locator Name Role Phone Tristin De Leon MD Primary Care Provider [phone] Reason for Referral * Imaging (Routine) - Closed Specialty Diagnoses / Procedures Referred By George cr Referred To Contact RADIOLOGY Diagnoses Abnormal levels of other serum enzymes Procedures US ABD LIMITED Tristin De Leon MD [address] [facility] [address] [place] [address] Phone: tel: fax: Referral ID Status Reason Start Date Expiration Date Visits Re quested Visits Authorized [id number] Closed 04/07/2023 04/07/2024 1 1 Reason for Visit * Imaging (Routine) - Closed Specialty Diagnoses / Procedures Referred By George cr Referred To Contact RADIOLOGY Diagnoses Abnormal levels of other serum enzymes Procedures US ABD LIMITED Tristin De Leon MD [address] [place] [address] Phone: tel: fax: Referral ID Status Reason Start Date Expiration Date Visits Re quested Visits Authorized [id number] Closed 04/07/2023 04/07/2024 1 1 Encounter Details Date Type Department Care Team (Latest Contact Info) Description 05/26/2023 9:58 AM CDT - 05/26/2023 11:59 PM CDT Hospital Encounter [facility] [address] [place] [address] Tristin De Leon MD [address] [place] [address] Discharge Disposition: Home or Self Care (Routine Discharge) Social History Tobacco Use Types Packs/Day Years [...] Procedure Name Priority Date/Time Associated Diagnosis Comments US ABD LIMITED Routine 05/26/2023 10:31 AM CDT Abnormal levels of other serum enzymes documented in this encounter Results * US ABD LIMITED (05/26/2023 10:31 AM CDT) Anatomical Region Laterality Modality Abdomen Ultrasound 05/27/2023 1:58 AM CDT Impressions 05/27/2023 4:16 PM CDT IMPRESSION: 1. ??No acute abnormality identified. 2. ??Nonobstructing calculus in the inferior pole of the right kidney. 3. ??Cholecystectomy. 4. ??Partial visualization of pancreas. Referred By: TRISTIN DE LEON Interpreted By: Jayant Easley MD, 05/27/2023 1:58 AM Narrative 05/27/2023 4:16 PM CDT INDICATION: abn lab COMPARISON: CT abdomen/pelvis, 20 May 2023 FINDINGS: Limited abdominal sonography was performed and showed a normal appearing inferior vena cava. The liver is normal in echogenicity and craniocaudal dimension. No focal parenchymal lesions are seen. No intrahepatic biliary ductal dilation. Portal and hepatic veins are patent with appropriate directional flow. Status post cholecystectomy. Common bile duct is within normal limits, measuring 0.4 cm. Visualized portion of the pancreas appears unremarkable. Pancreas is partially obscured by bowel gas shadow. Right kidney measures 12.6 x 3.7 x 5.4 cm. Renal echotexture is within normal limits without evidence of focal parenchymal abnormality. No evidence of hydronephrosis. 1.4 cm nonobstructing calculus in the inferior pole of the right kidney. No perinephric fluid is seen. Left kidney was not included in this study. Procedure Note Jayant Easley MD - 05/27/2023 INDICATION: abn lab COMPARISON: CT abdomen/pelvis, 20 May 2023 FINDINGS: Limited abdominal sonography was performed and showed a normal appearinginferior vena cava. The liver is normal in echogenicity and craniocaudal dimension. No focalparenchymal lesions are seen. No intrahepatic biliary ductal dilation.Portal and hepatic veins are patent with appropriate directional flow. Status post cholecystectomy. Common bile duct is within normal limits, measuring 0.4 cm. Visualized portion of the pancreas appears unremarkable. Pancreas ispartially obscured by bowel gas shadow. Right kidney measures 12.6 x 3.7 x 5.4 cm. Renal echotexture is withinnormal limits without evidence of focal parenchymal abnormality. Noevidence of hydronephrosis. 1.4 cm nonobstructing calculus in the inferiorpole of the right kidney. No perinephric fluid is seen. Left kidney wasnot included in this study. IMPRESSION: 1. No acute abnormality identified. 2. Nonobstructing calculus in the inferior pole of the right kidney. 3. Cholecystectomy. 4. Partial visualization of pancreas. Referred By: TRISTIN DE LEON Interpreted By: Jayant Easley MD, 05/27/2023 1:58 AM us Tristin De Leon MD ULTRASOUND Final Result documented in this encounter Visit Diagnoses Diagnosis Abnormal levels of other serum enzymes documented in this encounter Care Teams Test Desk Trouble Locator Relationship Specialty Start Date End Date Tristin De Leon MD [address] [place] [address] [address] [place] [id number] PCP - General 02/18/13 documented as of this encounter
--- OUTSIDE RECORDS SUMMARY | 2024-02-18 03:25 | XMS_ITS | Encounter Summary ---
Author Organization [facility] Address [address] [place] [address]. [place], [place] [address] [place] [address] Care Team Providers Care Belt Measurer Name Role Phone Tristin Ghotra MD Primary Care Provider [phone] Encounter Details Date Type Department Care Team (Latest Contact Info) Description 08/20/2021 Travel Social History Tobacco Use Types Packs/Day Years Used Date Smoking Tobacco: Never Assessed Comments Unknown Sex and Gender Information Value Date Recorded Sex Assigned at Not on file Legal Sex Female 4:11 PM CDT Gender Identity Not on file Sexual Orientation Not on file COVID-19 Exposure Response Date Recorded In the last 10 days, have yo u been in contact with someone who was confirmed or suspected to have Coronavirus/COVID-19? No / Unsure 08/20/2021 3:19 PM CDT documented as of this encounter Plan of Treatment Not on file documented as of this encounter Visit Diagnoses Not on filedocumented in this encounter Care Teams Belt Measurer Relationship Specialty Start Date End Date Tristin Ghotra MD [address] [facility] [address] [place] [address] PCP - General 02/18/13 documented as of this encounter
--- OUTSIDE RECORDS SUMMARY | 2024-02-18 03:25 | XMS_ITS | Encounter Summary ---
Author Organization [facility] Address [address] [place] [address]. [place], [place] [address] [place] [address] Care Team Providers Care Wildfire Prevention Specialist Name Role Phone Tristin Ghotra MD Primary Care Provider [phone] Encounter Details Date Type Department Care Team (Latest Contact Info) Description 05/26/2023 Travel Social History Tobacco Use Types Packs/Day [...] on filedocumented in this encounter Care Teams Wildfire Prevention Specialist Relationship Specialty Start Date End Date Tristin Ghotra MD [address] [place] [address] PCP - General 02/18/13 documented as of this encounter
--- OUTSIDE RECORDS SUMMARY | 2024-02-18 03:25 | XMS_ITS | Encounter Summary ---
Author Organization [facility] Address [address] [place] [address]. [place], [place] [address] [place] [address] Care Team Providers Care Cone Worker Name Role Phone Tristin Ghotra MD Primary Care Provider Reason for Referral * Imaging (Routine) - Closed Specialty Diagnoses / Procedures Referred By Contac t Referred To Contact RADIOLOGY Diagnoses Neck mass Procedures US SOFT TISS HEAD OR NECK Bryant Ochoa MD [address] [place] [address] Phone: tel: fax: Referral ID Status Reason Start Date Expiration Date Visits Re quested Visits Authorized [id number] Closed 08/09/2021 09/09/2022 1 1 Reason for Visit * Imaging (Routine) - Closed Specialty Diagnoses / Procedures Referred By Contac t Referred To Contact RADIOLOGY Diagnoses Neck mass Procedures US SOFT TISS HEAD OR NECK Bryant Ochoa MD [address] [place] [address] Phone: tel: fax: Referral ID Status Reason Start Date Expiration Date Visits Re quested Visits Authorized [id number] Closed 08/09/2021 09/09/2022 1 1 Encounter Details Date Type Department Care Team (Latest Contact Info) Description 08/20/2021 3:20 PM CDT - 08/20/2021 11:59 PM CDT Hospital Encounter [place] [address] Bryant Ochoa MD [facility] [address] [id number] Discharge Disposition: Home or Self Care (Routine [...] Name Priority Date/Time Associated Diagnosis Comments US SOFT TISS HEAD OR NECK Routine 08/20/2021 3:55 PM CDT Neck mass documented in this encounter Results * US SOFT TISS HEAD OR NECK (08/20/2021 3:55 PM CDT) Anatomical Region Laterality Modality Head, Neck Ultrasound 08/22/2021 9:49 AM CDT Impressions 08/22/2021 9:52 AM CDT IMPRESSION: 1. ??Palpable abnormality corresponds to a normal sized normal morphology left supraclavicular lymph node that is slightly decreased in size from 08/21/[address] Referred By: BRYANT OCHOA Interpreted By: London Brooks MD, 08/22/2021 9:49 AM Narrative 08/22/2021 9:52 AM CDT Examination: Ultrasound of the soft tissues of the head and neck Exam Date/Time: 08/20/2021 3:28 PM Reason For Exam: ??Neck mass ?? Palpable abnormality in the left supraclavicular region increasing since size over the past year with associated pain Comparison: CT soft tissue neck 08/21/2020 Technique: Targeted transcutaneous ultrasound of the left supraclavicular fossa was performed for analysis of vazquez scale and color doppler imaging characteristics. Findings: Ultrasound evaluation of the area of concern in the left supraclavicular fossa shows a corresponding 6 x 6 x 3 mm reniform shaped hypoechoic mass in the subcutaneous tissue. ??There is a peripheral hilum flow on Doppler imaging indicating this is a lymph node. ??This is slightly decreased in size from comparison CT from 2020. ??The lesion can be seen on axial image 78 on that exam. ??Nearby lymph nodes are noted as well. ??No abnormal fluid collections. ??Skin thickness is normal. ??No abnormal hyperemia in the surrounding soft tissues. Procedure Note London Brooks MD - 08/22/2021 Examination: Ultrasound of the soft tissues of the head and neck Exam Date/Time: 08/20/2021 3:28 PM Reason For Exam: Neck mass Palpable abnormality in the left supraclavicular region increasing sincesize over the past year with associated pain Comparison: CT soft tissue neck 08/21/2020 Technique: Targeted transcutaneous ultrasound of the left supraclavicularfossa was performed for analysis of vazquez scale and color doppler imagingcharacteristics. Findings: Ultrasound evaluation of the area of concern in the leftsupraclavicular fossa shows a corresponding 6 x 6 x 3 mm reniform shapedhypoechoic mass in the subcutaneous tissue. There is a peripheral hilumflow on Doppler imaging indicating this is a lymph node. This is slightlydecreased in size from comparison CT from 2020. The lesion can be seen onaxial image 78 on that exam. Nearby lymph nodes are noted as well. Noabnormal fluid collections. Skin thickness is normal. No abnormalhyperemia in the surrounding soft tissues. IMPRESSION: 1. Palpable abnormality corresponds to a normal sized normal morphologyleft supraclavicular lymph node that is slightly decreased in size from08/21/[address] Referred By: BRYANT OCHOA Interpreted By: London Brooks MD, 08/22/2021 9:49 AM us Bryant Ochoa MD ULTRASOUND Final Result documented in this encounter Visit Diagnoses Diagnosis Neck mass Swelling, mass, or lump in head and neck documented in this encounter Care Teams Cone Worker Relationship Specialty Start Date End Date Tristin Ghotra MD [address] [facility] [address] [place] [address] PCP - General 02/18/13 documented as of this encounter
--- OUTSIDE RECORDS SUMMARY | 2024-02-18 03:25 | XMS_ITS | Encounter Summary ---
Author Organization [facility] Address [address] [place] [address]. [place], [place] [id number] [place] [address] Care Team Providers Care Heart Specialist Name Role Phone Tristin De Leon MD Primary Care Provider [phone] Reason for Referral * Imaging (Routine) - Closed Specialty Diagnoses / Procedures Referred By George cr Referred To Contact RADIOLOGY Diagnoses Microscopic hematuria Other microscopic hematuria Procedures CT ABD+PEL WWO CON Tristin De Leon MD [address] [place] [address] Phone: tel: fax: Referral ID Status Reason Start Date Expiration Date Visits Re quested Visits Authorized [id number] Closed 05/15/2023 11/11/2023 1 1 Reason for Visit * Imaging (Routine) - Closed Specialty Diagnoses / Procedures Referred By Contsavita cr Referred To Contact RADIOLOGY Diagnoses Microscopic hematuria Other microscopic hematuria Procedures CT ABD+PEL WWO CON Tristin De Leon MD [address] [place] [address] Phone: tel: fax: Referral ID Status Reason Start Date Expiration Date Visits Re quested Visits Authorized [id number] Closed 05/15/2023 11/11/2023 1 1 Encounter Details Date Type Department Care Team (Latest Contact Info) Description 05/20/2023 2:02 PM CDT - 05/20/2023 11:59 PM CDT Hospital Encounter [facility] [address] [place] [address] Tristin De Leon MD [address] [facility] [address] [place] [address] Discharge Disposition: Home or Self [...] Procedure Name Priority Date/Time Associated Diagnosis Comments CT ABD+PEL WWO CON Routine 05/20/2023 2: 35 PM CDT Microscopic hematuria Other microscopic hematuria documented in this encounter Results * CT ABD+PEL WWO CON (05/20/2023 2:35 PM CDT) Anatomical Region Laterality Modality Abdomen Computed Tomogra phy 05/20/2023 11:4 0 PM CDT Impressions 05/20/2023 11:48 PM CDT IMPRESSION: 1. ??Nonobstructing right renal calculi without suspicious renal mass, hydronephrosis or hydroureter. 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 ??Enlarged heart 3. ??Postsurgical changes with pneumobilia as above. Referred By: TRISTIN DE LEON Interpreted By: Dewayne Gay MD, 05/20/2023 11:40 PM Narrative 05/20/2023 11:48 PM CDT INDICATION: Elevated liver enzymes, microscopic hematuria, low back and flank pain DOSE OPTIMIZATION: This facility uses dose optimization techniques as appropriate to perform exams, including at least one of the following techniques: 1. ??Automated exposure control. 2. ??Adjustment of the mA and/or kV according to patient size (this includes techniques or standardized protocols for targeted exams where dose is matched to the indication/reason for exam, i.e. extremities or head). 3. Use of iterative reconstructive technique. TECHNIQUE: CT abdomen and pelvis was performed with and without IV contrast COMPARISON: None FINDINGS: The heart is enlarged. ??There is pneumobilia without common bile duct distention seen. ??There are clips in the gallbladder fossa noted. ??No other focal liver, splenic, pancreatic, or adrenal lesion is seen. There is a right inferior renal calculi measuring 9 mm. ??No left renal calculi is appreciated. ??There are small hypoattenuating areas seen in bilateral kidneys which do not fill-in with contrast on delayed imaging and these likely represent small cysts or fat-containing areas. ??No other suspicious renal lesion or renal mass is noted. ??There is an incompletely characterized duplicated collecting systems seen on the left. ??No suspicious bladder lesion is seen. ??There is incomplete opacification of the entire ureters. Vascular calcifications in the pelvis are seen in the possibility of intraperitoneal and pelvic fat limit evaluation along with the lack of complete filling of the ureters with contrast. ??Gross hydroureter is not appreciated however. No free fluid in the pelvis is seen. ??The presence of stool, lack of oral contrast, lack of intraperitoneal fat, and lack of distention limit evaluation. ??Obvious pericolonic inflammatory changes are not appreciated. ??No small bowel distention is seen. ??There are postsurgical changes in the right lower quadrant. Tiny hypoattenuating area in the left adnexa may be related to dominant follicle or small cyst. ??Periaortic lymphadenopathy by size criteria is not appreciated. Mild degenerative changes are noted. Procedure Note Andrew Gay MD - 05/20/2023 INDICATION: Elevated liver enzymes, microscopic hematuria, low back andflank pain DOSE OPTIMIZATION: This facility uses dose optimization techniques asappropriate to perform exams, including at least one of the followingtechniques: 1. Automated exposure control. 2. Adjustment of the mA and/or kV according to patient size (thisincludes techniques or standardized protocols for targeted exams wheredose is matched to the indication/reason for exam, i.e. extremities orhead). 3. Use of iterative reconstructive technique. TECHNIQUE: CT abdomen and pelvis was performed with and without IVcontrast COMPARISON: None FINDINGS: The heart is enlarged. There is pneumobilia without common bileduct distention seen. There are clips in the gallbladder fossa noted. Noother focal liver, splenic, pancreatic, or adrenal lesion is seen. There is a right inferior renal calculi measuring 9 mm. No left renalcalculi is appreciated. There are small hypoattenuating areas seen inbilateral kidneys which do not fill-in with contrast on delayed imagingand these likely represent small cysts or fat-containing areas. No othersuspicious renal lesion or renal mass is noted. There is an incompletelycharacterized duplicated collecting systems seen on the left. Nosuspicious bladder lesion is seen. There is incomplete opacification ofthe entire ureters. Vascular calcifications in the pelvis are seen in the possibility ofintraperitoneal and pelvic fat limit evaluation along with the lack ofcomplete filling of the ureters with contrast. Gross hydroureter is notappreciated however. No free fluid in the pelvis is seen. The presence of stool, lack of oralcontrast, lack of intraperitoneal fat, and lack of distention limitevaluation. Obvious pericolonic inflammatory changes are not appreciated.No small bowel distention is seen. There are postsurgical changes in theright lower quadrant. Tiny hypoattenuating area in the left adnexa may be related to dominantfollicle or small cyst. Periaortic lymphadenopathy by size criteria isnot appreciated. Mild degenerative changes are noted. IMPRESSION: 1. Nonobstructing right renal calculi without suspicious renal mass,hydronephrosis or hydroureter. There is a partially duplicated collectingsystem on the left and hypoattenuating areas in the kidneys bilaterallywhich may be related to small cysts or fat-containing lesions 2. Enlarged heart 3. Postsurgical changes with pneumobilia as above. Referred By: TRISTIN DE LEON Interpreted By: Dewayne Gay MD, 05/20/2023 11:40 PM Tristin De Leon MD CT Final Result documented in this encounter Visit Diagnoses Diagnosis Microscopic hematuria Other microscopic hematuria documented in this encounter Administered Medications Inactive Administered Medications - up to 3 most recent administrations Medication Order MAR Action Action Date Dose Rate Site iopamidol (ISOVUE-370) 76 % injection 100 mL 100 mL, Intravenous, IMG once as needed, Contrast, 1 dose, Starting on 05/20/23 at 1435, Until 05/20/23 at 1436 Given 05/20/2023 2:36 PM CDT 100 mLs Ri ght Arm documented in this encounter Care Teams Heart Specialist Relationship Specialty Start Date End Date Tristin De Leon MD [address] [facility] [address] [place] [address] PCP - General 02/18/13 documented as of this encounter
--- OUTSIDE RECORDS SUMMARY | 2024-02-18 03:25 | XMS_ITS | Encounter Summary ---
Author Organization [facility] Address [address] [place] [address]. [place], [place] [address] [place] [address] Care Team Providers Care Scrapper Name Role Phone Tristin Gohtra MD Primary Care Provider [phone] Encounter Details Date Type Department Care Team (Latest Contact Info) Description 05/20/2023 Travel Social History Tobacco Use Types Packs/Day [...] on filedocumented in this encounter Care Teams Scrapper Relationship Specialty Start Date End Date Tristin Ghotra MD [address] [place] [address] PCP - General 02/18/13 documented as of this encounter
--- OUTSIDE RECORDS SUMMARY | 2024-02-18 03:25 | XMS_ITS | Clinical Summary ---
Author Organization [facility] Address [address] [place] [address]. [place], [place] [address] [place] [address] Care Team Providers Care Magento Developer Name Role Phone Tristin Ghotra MD Primary Care Provider Medications No known medications Social History Tobacco Use Types Packs/Day Years Used Date Smoking Tobacco: Never Assessed Comments Unknown Sex and Gender Information Value Date Recorded Sex Assigned at Not on file Legal Sex Female 4:11 PM CDT Gender Identity Not on file Sexual Orientation Not on file Plan of Treatment Health Maintenance Due Date Last Done Comments Cervical Cancer Screening Pa p Smear (Age 30 to 64) Every 3 Years 1976 Colorectal Cancer Screening Colonoscopy (10 Years) 1976 Annual Physical 02/03/1979 Hepatitis C 02/03/1994 DTaP, Tdap and Td Vaccines ( 1 - Tdap) 02/03/1995 Hepatitis B Vaccines (1 of 3 - 19+ 3-dose series) 02/03/1995 Cervical Cancer Screening Pa p with HPV Testing (Age 30 to 64) Every 5 Years 02/03/2006 Cervical Cancer Screening wi th HPV 02/03/2006 Mammogram Screening 12/27/2020 12/27/2018 COVID-19 Vaccine (3 - 2023-2 5 season) 2023 07/07/2020, 06/16/2020 Influenza Adult (#1) 2023 Meningococcal Vaccine Aged Out No leoncio mitch eligible based on patient's age to complete this topic Pneumococcal Vaccine: Pediatrics (0 to 5 Years) and At-Risk Patients (6 to 64 Years) Aged Out No longer eligible b ased on patient's age to complete this topic RSV Immunizations Under 20 Months Aged Out No longer eligible b ased on patient's age to complete this topic Insurance COUNTS INCLUDE 234 BEDS AT [facility] Care Teams Magento Developer Relationship Specialty Start Date End Date Tristin Ghotra MD [address] [facility] [address] [place] [address] PCP - General 02/18/13
--- OUTSIDE RECORDS SUMMARY | 2024-02-18 03:26 | XMS_ITS | Encounter Summary ---
Author Organization [facility] Address [address] [place] [address]. [place], [place] [id number] [place] [address] Care Team Providers Care Ship Boat Or Barge Mate Name Role Phone Tristin Ghotra MD Primary Care Provider [phone] Encounter Details Date Type Department Care Team (Late st Contact Info) Description 02/18/2013 Abstract [facility] [address] [place] [address] Humphrey Mcgraw MD [address] [facility] [address] Social History Tobacco Use Types Packs/Day Years Used Date Smoking Tobacco: Never Assessed Comments Unknown Sex and Gender Information Value Date Recorded Sex Assigned at Not on file Legal Sex Female 4:11 PM CDT Gender Identity Not on file Sexual Orientation Not on file documented as of this encounter Plan of Treatment Not on file documented as of this encounter Visit Diagnoses Diagnosis Memory loss documented in this encounter Care Teams Ship Boat Or Barge Mate Relationship Specialty Start Date End Date Tristin Ghotra MD [address] [place] [address] PCP - General 02/18/13 documented as of this encounter
--- OUTSIDE RECORDS SUMMARY | 2024-02-18 03:26 | XMS_ITS | Encounter Summary ---
Author Organization [facility] Address [address] [place] [address]. [place], [place] [address] [place] [address] Care Team Providers Care Biological Sciences Instructor Name Role Phone Tristin Ghotra MD Primary Care Provider [phone] Reason for Referral * Imaging (Routine) - Closed Specialty Diagnoses / Procedures Referred By Contac t Referred To Contact RADIOLOGY Diagnoses Lymphadenopathy Shortness of breath Night sweats Procedures CT CHEST W CON CT CHEST W Bryant Hernandez MD [address] [place] [address] Phone: tel: fax: Referral ID Status Reason Start Date Expiration Date Visits Re quested Visits Authorized [id number] Closed 08/19/2020 11/17/2020 1 1 * Imaging (Routine) - Closed Specialty Diagnoses / Procedures Referred By Contac t Referred To Contact RADIOLOGY Diagnoses Lymphadenopathy Shortness of breath Night sweats Procedures CT SOFT TISSUE NECK W CON CT SOFT TISSUE NECK W CON Bryant Ochoa MD [address] [place] [address] Phone: tel: fax: Referral ID Status Reason Start Date Expiration Date Visits Re quested Visits Authorized [id number] Closed 08/19/2020 11/17/2020 1 1 Reason for Visit * Imaging (Routine) - Closed Specialty Diagnoses / Procedures Referred By Contac t Referred To Contact RADIOLOGY Diagnoses Lymphadenopathy Shortness of breath Night sweats Procedures CT SOFT TISSUE NECK W CON CT SOFT TISSUE NECK W CON Bryant Ochoa MD [address] [place] [address] Phone: tel: fax: Referral ID Status Reason Start Date Expiration Date Visits Re quested Visits Authorized [id number] Closed 08/19/2020 11/17/2020 1 1 Encounter Details Date Type Department Care Team (Latest Contact Info) Description 08/21/2020 3:06 PM CDT - 08/21/2020 11:59 PM CDT Hospital Encounter [facility] [address] [place], [place] [id number] Bryant Ochoa MD [address] [place] [address] Discharge Disposition: Home or Self Care (Routine [...] Name Priority Date/Time Associated Diagnosis Comments CT CHEST W CON Routine 08/21/2020 3:47 PM CDT Lymphadenopathy Shortness of breath Night sweats CT SOFT TISSUE NECK W CON Routine 08/21/2020 3:47 PM CDT Lymphadenopathy Shortness of breath Night sweats documented in this encounter Results * CT CHEST W CON (08/21/2020 3:47 PM CDT) Anatomical Region Laterality Modality Chest Computed Tomogra phy 08/26/2020 1:00 PM CDT Impressions 08/26/2020 1:05 PM CDT IMPRESSION: 1. ??No acute findings. 2. ??No lymphadenopathy. 3. ??Other chronic or nonurgent findings as described above. Referred By: BRYANT OCHOA Interpreted By: Michi Guo MD, 08/26/2020 1:00 PM Narrative 08/26/2020 1:05 PM CDT Examination: CT CHEST W CON Clinical history: Shortness of breath, night sweats, lymphadenopathy Comparison: None DATE/TIME: 08/21/2020 3:30 PM Technique: Multiplanar images of the chest were obtained following the uneventful intravenous administration of 80 mL Isovue 370. A dose lowering technique was used for this procedure, which may include, but is not limited to, dose reduction technique, automated exposure control, the use of iterative reconstruction, and ALARA (As Low As Reasonably Achievable) / Image Gently techniques. Findings: Heart size upper limits of normal. ??Thoracic aorta normal caliber. ??No pericardial effusion. ??Coronary artery stent. ??No mediastinal or hilar lymphadenopathy. ??No supraclavicular or axillary lymphadenopathy. No pulmonary consolidation, pleural effusion or pneumothorax. ??No lung nodules or cavitary lesions. ??Pneumobilia incidentally noted in the upper abdomen. ??Recommend correlation for history of sphincterotomy or other biliary procedures. ??Mild thoracic spondylosis. ??No acute osseous abnormality. Procedure Note Michi Guo MD - 08/26/2020 Examination: CT CHEST W CON Clinical history: Shortness of breath, night sweats, lymphadenopathy Comparison: None DATE/TIME: 08/21/2020 3:30 PM Technique: Multiplanar images of the chest were obtained following theuneventful intravenous administration of 80 mL Isovue 370. A dose loweringtechnique was used for this procedure, which may include, but is notlimited to, dose reduction technique, automated exposure control, the useof iterative reconstruction, and ALARA (As Low As Reasonably Achievable) /Image Gently techniques. Findings: Heart size upper limits of normal. Thoracic aorta normalcaliber. No pericardial effusion. Coronary artery stent. No mediastinalor hilar lymphadenopathy. No supraclavicular or axillarylymphadenopathy. No pulmonary consolidation, pleural effusion or pneumothorax. No lungnodules or cavitary lesions. Pneumobilia incidentally noted in the upperabdomen. Recommend correlation for history of sphincterotomy or otherbiliary procedures. Mild thoracic spondylosis. No acute osseousabnormality. IMPRESSION: 1. No acute findings. 2. No lymphadenopathy. 3. Other chronic or nonurgent findings as described above. Referred By: BRYANT OCHOA Interpreted By: Michi Guo MD, 08/26/2020 1:00 PM us Bryant Ochoa MD CT Final Result * CT SOFT TISSUE NECK W CON (08/21/2020 3:47 PM CDT) Anatomical Region Laterality Modality Neck Computed Tomogra phy 08/26/2020 1:57 PM CDT Impressions 08/26/2020 2:00 PM CDT =====IMPRESSION:===== 1. Symmetric enlargement of the palatine tonsils with narrowing of the oropharyngeal airway, nonspecific. Could correlate with direct visualization. 2. No suspicious cervical lymphadenopathy. 3. Mild atherosclerosis. Referred By: BRYANT OCHOA Interpreted By: Panchito Campos MD, 08/26/2020 1:57 PM Narrative 08/26/2020 2:00 PM CDT EXAMINATION: CT soft tissue neck with contrast EXAM DATE/TIME: 08/21/2020 3:30 PM REASON FOR EXAM: Lymphadenopathy. Night sweats. COMPARISON: None TECHNIQUE: CT examination of the neck was performed after administration of intravenous contrast, 120mL IOPAMIDOL 76 % IV SOLN. Axial and multiplanar reformatted images were obtained. A dose lowering technique was used for this procedure, which may include, but is not limited to, dose reduction technique, automated exposure control, iterative reconstruction, ALARA (As Low As Reasonably Achievable), or Image Gently techniques. FINDINGS: Streak artifact from dental amalgam partially obscures assessment. There is symmetric enlargement of the palatine tonsils with narrowing of the oropharyngeal airway. Otherwise the visualized oral cavity, nasopharynx, hypopharynx, and larynx appear unremarkable. Major salivary glands and thyroid gland unremarkable. No suspicious-appearing or enlarged lymph nodes by size criteria seen in the neck. Major neck vascular structures patent. Minimal carotid atherosclerosis. No significant inflammatory changes or soft tissue collections identified. Imaged portions of the intracranial compartment are reveal no definite acute findings. Mastoid air cells and paranasal sinuses clear. Visualized orbits unremarkable. Please refer to separately reported CT of the chest for description of intrathoracic findings. Degenerative changes in the spine. Procedure Note Panchito Campos MD - 08/26/2020 EXAMINATION: CT soft tissue neck with contrast EXAM DATE/TIME: 08/21/2020 3:30 PM REASON FOR EXAM: Lymphadenopathy. Night sweats. COMPARISON: None TECHNIQUE: CT examination of the neck was performed after administrationof intravenous contrast, 120mL IOPAMIDOL 76 % IV SOLN. Axial andmultiplanar reformatted images were obtained. A dose lowering techniquewas used for this procedure, which may include, but is not limited to,dose reduction technique, automated exposure control, iterativereconstruction, ALARA (As Low As Reasonably Achievable), or Image Gentlytechniques. FINDINGS: Streak artifact from dental amalgam partially obscures assessment. Thereis symmetric enlargement of the palatine tonsils with narrowing of theoropharyngeal airway. Otherwise the visualized oral cavity, nasopharynx,hypopharynx, and larynx appear unremarkable. Major salivary glands andthyroid gland unremarkable. No suspicious-appearing or enlarged lymphnodes by size criteria seen in the neck. Major neck vascular structurespatent. Minimal carotid atherosclerosis. No significant inflammatorychanges or soft tissue collections identified. Imaged portions of the intracranial compartment are reveal no definiteacute findings. Mastoid air cells and paranasal sinuses clear. Visualizedorbits unremarkable. Please refer to separately reported CT of the chest for description ofintrathoracic findings. Degenerative changes in the spine. =====IMPRESSION:===== 1. Symmetric enlargement of the palatine tonsils with narrowing of theoropharyngeal airway, nonspecific. Could correlate with directvisualization. 2. No suspicious cervical lymphadenopathy. 3. Mild atherosclerosis. Referred By: BRYANT OCHOA Interpreted By: Panchito Campos MD, 08/26/2020 1:57 PM us Bryant Ochoa MD CT Final Result documented in this encounter Visit Diagnoses Diagnosis Lymphadenopathy Enlargement of lymph nodes Shortness of breath Night sweats Generalized hyperhidrosis documented in this encounter Administered Medications Inactive Administered Medications - up to 3 most recent administrations Medication Order MAR Action Action Date Dose Rate Site iopamidol (ISOVUE-370) 76 % injection 120 mL 120 mL, Intravenous, IMG once as needed, Contrast, 1 dose, Starting on Mon08/21/20 at 1547, Until Mon08/21/20 at 1547 Given 08/21/2020 3:47 PM CDT 120 mLs Left Arm documented in this encounter Care Teams Biological Sciences Instructor Relationship Specialty Start Date End Date Tristin Ghotra MD [address] [facility] [address] [place] [address] PCP - General 02/18/13 documented as of this encounter
--- OUTSIDE RECORDS SUMMARY | 2024-02-18 03:27 | XMS_ITS | Continuity of Care Document ---
Author Organization [facility], [employer], [employer] Address [address] [facility] [address] [place] [address] Care Team Providers Care Area Director Of Home Health Sales Name Role Phone MATT ARMSTRONG Veterans Adviser Assessment Encounter Date Assessment Date Assessment LastModified by Organization Details LastModified Time 12/15/2023 12/15/2023 Patient presented for follow up. Studies ordered as below. Discussed plan with patient/careg iver, who expressed understanding . Follow up as noted below. [email or web address] Not available 12/15/2023 12:47:25 Plan of Treatment Reminders Order Date Submit Date Provider Last Modified By Organization Details Last Modified Time Details Appointments ESTABLISH ED PATIENT 15 2024 09:45A M Tristin Ghotra MD Not available Not available Not available Lab lipid panel, serum 2023 024 [facility], [address], [place], [address], 01/06/2024 03:32:50 Referral gynecolog ist referral 2023 024 [facility] Special Education Inclusion Teacher, [address], [place] [address], [place], [address], 01/12/2024 08:18:07 gastroent erologist referral 2023 024 [email or web address] Jorge Crowe MD, [address] [facility], [place], [address], 12/15/2023 14:07:27 Procedures None recorded. Surgeries None recorded. Imaging MAMMO, screening , digital, bilateral 2023 [email or web address] [facility], [address] [facility], [place], [address], 12/15/2023 14:07:27 electroca rdiogram 2023 [facility], [facility], [address], [place], [address], 12/15/2023 15:12:32 Medication Orders Adderall XR 20 mg capsule,e xtended release 2023 [email or web address] Not available 12/15/2023 14:36:51 Airsupra 90 mcg-80 mcg/actua tion HFA aerosol inhaler 2023 [facility] [address] [place], [address], 12/15/2023 13:52:50 amlodipin e 5 mg tablet 2023 [facility] [address] [place], [address], 12/15/2023 13:52:49 losartan 25 mg tablet 2023 [facility] [address] [place], [address], 12/15/2023 13:52:48 Patient TargetsNo targets recorded. Patient InstructionsNo instructions recorded. Reason for Referral Salesforce Consultant Referral for Gy necologic examination Referring Physician: Tristin Ghotra, Internal Medicine, Encounter Date: 12/15/2023 Underwriting Clerks Supervisor Referral for Screening for malignant neoplasm of colon Referring Physician: Tristin Ghotra, Internal Medicine, Encounter Date: 12/15/2023 Results Created Date Observation Date Name Description Value Unit Range Abnormal Flag Note LastModifiedBy Organization Detail LastModifiedTime 12/15/1912/15/2023 elect rocseferino diogr am No observ ation record ed. [email or web address] [facility], [facility] [address], [place], [address], 12/15/2023 15:12:32 12/18/1912/15/2023 elect rocar diogr am No observ ation record ed. [email or web address] [facility] [address], [place], [address], 12/19/2023 11:05:43 Result Notes None recorded. 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 Active 2022 Tristin Ghotra MD [address], [place], [address], [facility] 3 17:05:21 COVID-19 371222916 Active 2022 Tristin Ghotra MD [address], [place], [address], [facility] 3 21:13:01 Obsessive-comp ulsive disorder 275266578 Active 2022 Tristin Ghotra MD [address], [place], [address], [facility] 3 17:57:42 Chronic insomnia 691147132 Active 2022 Tristin Ghotra MD [address], [place], [address], [facility] 17:43:24 Loss of hair 652881365 Active 2022 Tristin Ghotra MD [address], [place], [address], [facility] 3 17:51:51 Liver enzymes level above reference range 383482460 Active 2022 Tristin Ghotra MD [address], [place], [address], [facility] 3 17:20:48 Problem Notes None recorded. Procedures Surgical History Date Name Laterality Status Provider Name and Address Organization Details Recorded Time 09/22/19 14 placement of stent in coronary artery completed Tristin Ghotra MD [address], [place], [address], [facility] 07/27/2020 20:14:25 Appendectomy completed [facility] 11/10/2017 09:41:36 Cholecystectomy completed [facility] 11/10/2017 09:41:52 Breast Surgery completed [facility] 11/10/2017 09:42:17 Breast Surgery completed [facility] 11/10/2017 09:42:39 Imaging Results Imaging Date Name Status LastModified by Organization Details LastModified Time 12/15/2023 electrocardiogram completed [address], [facility] [address], [place], [address], 12/15/2023 15:12:32 Procedure Notes None recorded. Medical Equipment None Reported. Allergies No known drug allergies Medications Name Sig Start Date Stop Date Status Note LastModified by Organization Details LastModified Time ketoconaz ole 2 % shampoo GENOVEVA EXT 2 TIMES Q WK PRF RASH TO THE SCALP 07/27 completed Not Available Not Available Not Available cetirizin e 10 mg tablet TAKE 1 TABLET BY MOUTH EVERY DAY 09/29 completed Not Available Not Available Not Available doxazosin 1 mg tablet Take 1 tablet every day by oral route. 07/07 completed -- self d/c'd due to leg swelling Not Available Not Available Not Available metoprolo l succinate ER 50 mg tablet,ex tended release 24 hr 11/15 completed -- d/c by Cardiolo gist Dr Donn Armstrong Not Available Not Available Not Available dextroamp hetamine- amphetami ne 10 mg tablet Take 1 tablet twice a day by oral route. 12/20 completed Not Available Not Available Not Available spironola ctone 100 mg tablet TK 1 T PO BID WC 07/27 completed Not Available Not Available Not Available sertralin e 100 mg tablet half tab daily x 2 weeks; if effectiv e then stay on half tab daily; otherwis e increase to full tab daily 09/29 completed Not Available Not Available Not Available amlodipin e 2.5 mg tablet TAKE 1 TABLET BY MOUTH EVERY DAY 01/25 completed -- increase d to 5 mg Not Available Not Available Not Available nifedipin e ER 30 mg tablet,ex tended release 07/27 completed Not Available Not Available Not Available amlodipin e 5 mg tablet Take 1 tablet every day by oral route. 2023 active Not Available Not Available Not Avai lable dextroamp hetamine- amphetami ne ER 20 mg 24hr capsule,e xtend release Take 1 capsule every day by oral route in the morning. 2023 active Not Available Not Available Not Avai lable pantopraz ole 40 mg tablet,de layed release TAKE 1 TABLET BY MOUTH EVERY DAY 07/27 completed Not Available Not Available Not Available losartan 25 mg tablet TAKE 1 TABLET BY MOUTH EVERY 12 HOURS active Not Available Not Available No t Available monteluka st 10 mg tablet TAKE 1 TABLET BY MOUTH EVERY DAY AT NIGHT 09/29 completed -- pt reported she has not been taking Not Available Not Available Not Available albuterol sulfate HFA 90 mcg/actua tion aerosol inhaler 2 puffs up to 4 times a days as needed only; Must go to the Emergenc y Room if no relief after the 4th treatmen t. 12/02 completed Not Available Not Available Not Available ondansetr on 4 mg disintegr ating tablet 07/27 completed Not Available Not Available Not Available ramipril 5 mg capsule 11/15 completed -- Disconti nue by Cardiolo gist Dr. Matt armstrong III Not Available Not Available Not Available Lunesta 2 mg tablet 1 tab taken at bedtime; must plan for at least 8 hr of sleep when taking this med 04/06 completed Not Available Not Available Not Available Symbicort 80 mcg-4.5 mcg/actua tion HFA aerosol inhaler TAKE 2 PUFFS BY MOUTH TWICE A DAY NEEDED FOR COUGHING ,WHEEZIN G, SHORTNES S OF BREATH. RINSE MOUTH 12/02 completed Not Available Not Available Not Available budesonid e-formote rol HFA 160 mcg-4.5 mcg/actua tion aerosol inhaler INHALE 2 PUFFS TWICE A DAY 09/29 completed -- pt has not been taking Not Available Not Available Not Available ProChambe r 03/01 completed Not Available Not Available Not Available Spiriva Respimat 2.5 mcg/actua tion solution for inhalatio n 12/02 completed Not Available Not Available Not Available Paxlovid 300 mg (150 mg x 2)-100 mg tablets in a dose pack TAKE 3 TABS IN THE AM AND 3 TABS IN THE PM 03/01 completed Not Available Not Available Not Available Airsupra 90 mcg-80 mcg/actua tion HFA aerosol inhaler INHALE 2 PUFFS 4 TIMES DAILY NEEDED . MUST GO TO EMERGENC Y ROOM IF NO RELIEF AFTER THE 4TH TREATMEN T. STOP PLAIN ALBUTERO L active Not Available Not Available No t Available Vitals Date Recorded Body height Body mass index (BMI) Body weight Body temperature Respiratory rate Heart rate Provider Name and Address Organization Details Last Updated DateTime 4 175.26 cm 20.2 kg/m2 30199.1 5 g 97.7 [degF] 16 /min 80 /min Yi Rojas [facility] 12:50:34 Date Recorded Systolic blood pressure Diastolic blood pressure Provider Name and Address Organization Details Last Updated DateTime 12/15/2023 141 mm[Hg] 79 mm[Hg] Tristin Ghotra MD [address], [place], [address], [facility] 12/15/2023 13:43:18 Social History Question Answer Notes LastModified by Organizat ion Details LastModified Time Tobacco Smoking Status Never Smoker Jeanie Silva [email or web address] [facility] 11/10/2017 09:43:55 What Is Your Level Of Alcohol Consumption? Occasional [email or web address] Information not available 11/10/2017 What Is Your Level Of Caffeine Consumption? Moderate 1/2 Soda Per Day [email or web address] Information not available 04/06/2023 How Much Tobacco Do You Chew? None Information not available 07/27/2020 Which Illicit Or Recreational Drugs Have You Used? 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 07/13/2023 [email or web address] Information not available 07/13/2023 Sex: Unknown Functional Status None recorded. Mental Status None recorded. Family History Relationship Description Onset Age of this Age Resolved Age Notes LastModified by Organization Details LastModified Time Mother Malignant neoplasm of skin Methas tatic melano ma [email or web address] Not available 11/10/2017 09:44:33 Father Malignant tumor of lung (Heavy Smoker ) [email or web address] Not available 11/10/2017 09:44:49 Paternal Aunt Malignant tumor of breast @ 70's [email or web address] Not available 2017 09:45:05 Medical History No medical history recorded. Gynecological History Statement/Question Response Date of Last Pap Smear Date of Last Mammogram Obstetrics History GPAL:G 1 P 1 0 0 1 Type Value Full Term 1 Living 1 Total 1 Immunizations Vaccine Type Date Status Note Provider Nam e and Address Organization Details Recorded Time COVID-19, mRNA, LNP-S, PF, 30 mcg/0.3 mL dose 06/16/2020 completed Mihaela cuadra [facility] 07/27/2020 19:13:16 COVID-19, mRNA, LNP-S, PF, 30 mcg/0.3 mL dose 07/07/2020 completed Mihaela cuadra [facility] 07/27/2020 19:13:25 Past Encounters Encounter ID Performer Location Encounter Start Date Encounter Closed Date Diagnosis/Indication Diagnosis SNOMED-CT Code Diagnosis ICD10 Code [id number] Tristin Ghotra MD [facility], [facility] [address] [place] [address] 12/15/2023 11:22:16 12/15/2023 14:07:26 Liver enzymes level above reference range 482837880 R74.8 Essential hypertension 27014995 I10 Attention deficit hyperactivity disorder, predominantly inattentive type 76754335 F90.0 Asthma 647893875 J45.90 9 Active or passive immunization 348336520 Z23 Screening for malignant neoplasm of colon 208090728 Z12.11 Screening for malignant neoplasm of breast 132813362 Z12.31 Gynecologi c examination 36245382 Z01.419 Screening for cardiovascular system disease 881411422 Z13.6 Health Concerns Section Related Observation LastModified by Organization Detai ls LastModified Time None Recorded Concern Status LastModified by Organization Details LastModified Time None Recorded Payers Encounter Date Sequence Insurance Name Policy Number Policy Babin Covered Member ID Babin Member ID Guarantor Name 12/15/2023 1 [facility] [id number] Paola Mckeon [id number] Paola Mckeon Notes Date Note Type Note Provider Name and Address Organization Details Recorded Time 12/15/2023 text/html Pt comes in for f/u of ^LFTs, Asthma, ADD and weight monitoring. Pt feels well and has no c/o. Pt has no new sx and no increasing sx. Patient denies any jaw or neck discomfort, left arm pain/left arm discomfort, chest discomfort/pain, diaphoresis, breathing symptoms/chest tightness, indigestion sx, n/v, any angina equivalent symptoms, etc. Tristin Ghotra MD [address], [place], [address], [facility] 12/15/2023 13:55:11 OBGyn Episode No OBEpisode recorded.
--- OUTSIDE RECORDS SUMMARY | 2024-02-18 03:27 | XMS_ITS | Data Portability ---
Author Organization [facility], [employer] Address [address] [address] Care Team Providers Care Assurance Engineer Name Role Phone MATT ARMSTRONG Hat And Cap Opener Assessment Encounter Date Assessment Date Assessment LastModified by Organization Details LastModified Time 09/29/2022 09/29/2022 Patient presented for follow up. Studies ordered as below. Discussed plan with patient/careg iver, who expressed understanding . Follow up as noted below. Not available 09/29/2022 17:56:05 12/07/2022 12/07/2022 Patient presented for follow up. Studies ordered as below. Discussed plan with patient/careg iver, who expressed understanding . Follow up as noted below. Not available 12/07/2022 17:40:12 04/06/2023 04/06/2023 Patient presented for follow up. Studies ordered as below. Discussed plan with patient/careg iver, who expressed understanding . Follow up as noted below. Not available 04/06/2023 17:22:53 07/13/2023 07/13/2023 Patient presented for follow up. Studies ordered as below. Discussed plan with patient/careg iver, who expressed understanding . Follow up as noted below. [email or web address] Not available 07/13/2023 17:41:49 12/15/2023 12/15/2023 Patient presented for follow up. Studies ordered as below. Discussed plan with patient/careg iver, who expressed understanding . Follow up as noted below. [email or web address] Not available 12/15/2023 12:47:25 Plan of Treatment Reminders Order Date Submit Date Provider Last Modified By Organization Details Last Modified Time Details Appointments ESTABLISH ED PATIENT 15 2024 09:45A Caro De Leon MD Not available Not available Not available Lab lipid panel, serum 2022 023 [facility], [address], [place], [address], 11/21/2022 13:05:37 CMP, serum or plasma 2022 023 [facility], [address], [place], [address], 11/21/2022 13:05:40 CBC w/ auto diff 2022 023 [facility], [address], [place], [address], 11/21/2022 13:05:41 microalbu min/creat inine, mass ratio, urine 2022 023 [facility], [address], [place], [address], 11/21/2022 13:05:38 HIV 1+2 Ab + HIV1 p24 Ag, quantitat ethan immunoass ay, serum 2022 023 [facility], [address], [place], [address], 11/21/2022 13:05:39 lipid panel, serum 2022 023 [facility], [address], [place], [address], 12/12/2022 12:40:29 microalbu min/creat inine, mass ratio, urine 2022 023 [facility], [address], [place], [address], 12/12/2022 12:40:30 HIV 1+2 Ab + HIV1 p24 Ag, quantitat ethan immunoass ay, serum 2022 023 [facility], [address], [place], [address], 12/12/2022 12:40:31 CMP, serum or plasma 2022 023 [facility], [address], [place], [address], 12/12/2022 12:40:32 CBC w/ auto diff 2022 023 [facility], [address], [place], [address], 12/12/2022 12:40:32 TSH + free T4, serum 2022 023 [facility], [address], [place], [address], 12/07/2022 18:00:32 T3, free, serum or plasma 2022 023 [facility], [address], [place], [address], 12/07/2022 18:00:31 urinalysi s complete, reflex culture 2023 024 [facility], [address], [place], [address], 04/23/2023 05:30:12 CMP, serum or plasma 2023 024 [facility], [address], [place], [address], 04/23/2023 05:30:11 CBC w/ auto diff 2023 024 [facility], [address], [place], [address], 04/23/2023 05:30:13 TSH + free T4, serum 2023 024 [facility], [address], [place], [address], 04/23/2023 05:30:09 T3, free, serum or plasma 2023 024 [facility], [address], [place], [address], 04/23/2023 05:30:13 microalbu min/creat inine, mass ratio, urine 2023 024 [facility], [address], [place], [address], 04/23/2023 05:30:08 lipid panel, serum 2023 024 [facility], [address], [place], [address], 01/06/2024 03:32:50 Referral gynecolog ist referral [address] MD, [address] , [place], [address], 10/27/2022 08:11:54 gastroent erologist referral 2022 023 praful Muir MD, [address] [facility], [address], [address], 09/29/2022 18:12:26 gynecolog ist referral [address] MD, [address], [place], [address], 01/04/2023 08:13:47 gastroent erologist referral 2022 023 [email or web address] Brandon Muir MD, [address] [facility], [address], [place], [address], 12/07/2022 18:02:22 gynecolog ist referral [address] MD, [address] [facility], [place], [address], 05/04/2023 08:09:45 gastroent erologist referral 2023 024 praful Muir MD, [address] [facility], [address], [place], [address], 04/06/2023 17:41:41 gastroent erologist referral 2023 024 [facility] Jorge Crowe MD, [address] [facility], [place], [address], 05/11/2023 12:50:58 gynecolog ist referral 2023 024 praful [facility] Punchboard Inserter, [address] [facility], [facility] [address], [place], [address], 01/12/2024 08:18:07 gastroent erologist referral 2023 024 [email or web address] Jorge Crowe MD, [address] [facility], [address], [place], [address], 12/15/2023 14:07:27 Procedures None recorded. Surgeries None recorded. Imaging MAMMO, screening , digital, bilateral [facility]22 [facility]23 [facility] [address] [facility], [place], [address], 09/29/2022 18:15:24 MAMMO, screening , digital, bilateral 2022 023 [email or web address] [facility], [address] [facility], [place], [address], 12/07/2022 18:02:22 MAMMO, screening , digital, bilateral 2023 024 [facility], [address] [facility], [place], [address], 04/06/2023 17:41:41 US, liver 2023 024 [facility], [address] [facility], [place], [address], 04/20/2023 08:19:45 XR, chest, 2 view 2023 024 [facility], [address] [facility], [place], [address], 07/20/2023 08:09:24 MAMMO, screening , digital, bilateral 2023 024 [email or web address] [facility], [address] [facility], [place], [address], 12/15/2023 14:07:27 electroca rdiogram 2023 024 [facility], [facility], [address], [place], [address], 12/15/2023 15:12:32 Medication Orders albuterol sulfate HFA 90 mcg/actua tion aerosol inhaler [address] [facility] [address] [facility], [address] [place], [address], 12/03/2023 19:10:19 amlodipin e 5 mg tablet 2022 023 [facility], [address], [place], [address], 09/29/2022 18:08:43 amlodipin e 5 mg tablet [address] [facility] [address], [address] [facility], [place], [address], 12/07/2022 17:58:18 Lunesta 2 mg tablet 2022 024 [facility], [address] [facility], [place], [address], 04/06/2023 17:24:24 albuterol sulfate HFA 90 mcg/actua tion aerosol inhaler [address] [facility] [address], [address], [place], [address], 12/03/2023 19:10:19 albuterol sulfate HFA 90 mcg/actua tion aerosol inhaler 2023 024 [facility], [address] [facility], [place], [address], 12/03/2023 19:10:30 amlodipin e 5 mg tablet 2023 024 [facility], [address] [facility], [place], [address], 04/06/2023 17:33:55 Airsupra 90 mcg-80 mcg/actua tion HFA aerosol inhaler 2023 024 [facility], [address], [place], [address], 07/13/2023 18:37:19 dextroamp hetamine- amphetami ne 10 mg tablet [address] [facility] [address], [address], [place], [address], 12/21/2023 06:10:49 Adderall XR 20 mg capsule,e xtended release 2023 [email or web address] Not available 12/15/2023 14:36:51 Airsupra 90 mcg-80 mcg/actua tion HFA aerosol inhaler 2023 [facility], [address] [place], [address], 12/15/2023 13:52:50 amlodipin e 5 mg tablet 2023 [facility], [address], [place], [address], 12/15/2023 13:52:49 losartan 25 mg tablet 2023 [facility], [address], [place], [address], 12/15/2023 13:52:48 Patient TargetsNo targets recorded. 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 Referral for Gy necologic examination Referring Physician: Tristin De Leon Internal Medicine, Encounter Date: 09/29/2022 Mirror Finishing Machine Operator Referral for Screening for malignant neoplasm of colon Referring Physician: Tristin De Leon Internal Medicine, Encounter Date: 09/29/2022 Vineyard Worker Referral for Gy necologic examination Referring Physician: Tristin De Leon Internal Medicine, Encounter Date: 12/07/2022 Mirror Finishing Machine Operator Referral for Screening for malignant neoplasm of colon Referring Physician: Hari Heller Medicine, Encounter Date: 12/07/2022 Vineyard Worker Referral for Gy necologic examination Referring Physician: Tristin De Leon Internal Medicine, Encounter Date: 04/06/2023 Mirror Finishing Machine Operator Referral for Screening for malignant neoplasm of colon Referring Physician: Hari Heller Medicine, Encounter Date: 04/06/2023 Mirror Finishing Machine Operator Referral for Liver enzymes level above reference range Referring Physician: Tristin De Leon, Internal Medicine, Encounter Date: 04/06/2023 Vineyard Worker Referral for Gy necologic examination Referring Physician: Tristin De Leon, Internal Medicine, Encounter Date: 12/15/2023 Mirror Finishing Machine Operator Referral for Screening for malignant neoplasm of colon Referring Physician: Tristin De Leon, Internal Medicine, Encounter Date: 12/15/2023 Results Created Date Observation Date Name Description Value Unit Range Abnormal Flag Note LastModifiedBy Organization Detail LastModifiedTime 11/20/1911/21/2022 LIPID PANEL , STAND BARRON cholesterol, total 158 mg/dL <200 normal Not Available [address], [address], 11/21/2022 13:05:37 11/20/19 23 11/21/2022 LIPID PANEL , STAND BARRON HDL cholesterol 77 mg/dL > or = 50 normal Not Available [address], [address], 11/21/2022 13:05:37 11/20/19 23 11/21/2022 LIPID PANEL , STAND BARRON triglyceride s 51 mg/dL <150 normal Not Available [address], [address], 11/21/2022 13:05:37 11/20/19 23 11/21/2022 LIPID PANEL , STAND BARRON LDL-choleste rol 68 mg/dL _(frank c) normal Refer ence range : <100 Tiburcio able range <100 mg/dL for prima ry preve ntion ; <70 mg/dL for patie nts with CHD or diabe tic patie nts with > or = 2 CHD risk facto rs. LDL-C is now calcu lated using the Beth n-Hop kins calcu latdeepak n, which is a valid ated novel jaycobo d carolina wildete r accur acy than the Fried anat equat ion in the estim ation of LDL-C . Beth stark SS et al. MALDONADO. 2013; 310(6 8): 2061- 2068 (http ://ed ucati on.Qu Esa bhaktaSiTimes. com/f aq/FA Q164) Not Available [address], [place], [address], 11/21/2022 13:05:37 11/20/19 23 11/21/2022 LIPID PANEL , STAND BARRON chol/HDLC ratio 2.1 (calc ) <5.0 normal Not Available [address], [place], [address], 11/21/2022 13:05:37 11/20/19 23 11/21/2022 LIPID PANEL , STAND BARRON non HDL cholesterol 81 mg/dL _(frank c) <130 normal For patie nts with diabe gavin plus 1 major ASCVD risk facto r, treat ing to a non-H DL-C goal of <100 mg/dL (LDL- C of <70 mg/dL ) is consi dered a thera pejas c optio n. Not Available [address] , [place], [address], 11/21/2022 13:05:37 11/20/19 23 11/21/2022 ALBUM IN, RANDO M URINE W/CRE ATINI NE creatinine, random urine 235 mg/dL 20-275 normal Not Available [address] [address] [facility] [place], [address], 11/21/2022 13:05:38 11/20/19 23 11/21/2022 ALBUM IN, RANDO M URINE W/CRE ATINI NE albumin, urine 4.9 mg/dL see note: normal Refer ence Range : Refer ence Range Not estab lishe d Not Available [address] [address] [place], [address], 11/21/2022 13:05:38 11/20/19 23 11/21/2022 ALBUM IN, RANDO M URINE W/CRE ATINI NE albumin/crea tinine ratio, random urine 21 mcg/m g_cre at <30 normal The ADA defin es abnor malit ies in album in excre tion as follo ws: Album inuri a Categ ory Resul t (mcg/ mg creat inine ) Bree l to Mildl y incre ased <30 Moder ately incre ased 30-29 9 Sever husam incre ased > OR = 300 The ADA recom mends that at least two of three speci mens colle cted withi n a 3-6 month perio d be abnor mal befor e consi mahnaz g a patie nt to be withi n a diagn ostic categ ory. Not Available [facility] [address], [place], [address], 11/21/2022 13:05:38 11/20/19 23 11/21/2022 HIV 1/2 ANTIG EN/AN TIBOD Y,FOU RTH GENER ATION W/RFL HIV Ag/Ab, 4TH gen NON-RE ACTIVE non-re active normal HIV-1 antig en and HIV-1 /HIV- 2 antib odies were not detec catherine. There is no labor atory evide nce of HIV infec tion. PLEAS E NOTE: This infor matio n has been discl osed to you from recor ds whose confi denti ality may be prote cted by state law. If your state requi res such prote ction , then the state law prohi bits you from rayna g any furth er discl osure of the infor matio n witho ut the speci fic writt en conse nt of the perso n to whom it perta ins, or as other valerio permi tted by law. A gener al autho rizat ion for the relea se of medic al or other infor matio n is NOT suffi cient for this purpo se. For addit ional infor matio n pleas e refer to http: //[facility] catdeepak stark.que stdia gnost ics.c om/fa q/FAQ 106 (This link is being provi ded for infor matio nal/ educa miriam l purpo ses only. ) The perfo rmanc e of this assay has not been clini uriah valid ated in patie nts less than 2 years old. Not Available [address], [address], 11/21/2022 13:05:39 11/20/19 23 11/21/2022 COMPR EHENS ETHAN METAB OLIC PANEL glucose 89 mg/dL 65-99 normal Fasti ng refer ence inter wilbur Not Available [facility] [address], [address], 11/21/2022 13:05:40 11/20/19 23 11/21/2022 COMPR EHENS ETHAN METAB OLIC PANEL urea nitrogen (BUN) 13 mg/dL 7-25 normal Not Available [address], [address], 11/21/2022 13:05:40 11/20/19 23 11/21/2022 COMPR EHENS ETHAN METAB OLIC PANEL creatinine 0.73 mg/dL 0.50-0 .99 normal Not Available [facility] [address], [address], 11/21/2022 13:05:40 11/20/19 23 11/21/2022 COMPR EHENS ETHAN METAB OLIC PANEL eGFR 103 mL/mi n/1.7 3m2 > or = 60 normal Not Available [address], [address], 11/21/2022 13:05:40 11/20/19 23 11/21/2022 COMPR EHENS ETHAN METAB OLIC PANEL BUN/creatini ne ratio SEE NOTE: (calc ) 6-22 Not Repor catherine: BUN and Creat inine are withi n refer ence range . Not Available [facility] [address], [address], 11/21/2022 13:05:40 11/20/19 23 11/21/2022 COMPR EHENS ETHAN METAB OLIC PANEL sodium 137 mmol/ L 135-14 6 normal Not Available [facility] [address] [place], [address], 11/21/2022 13:05:40 11/20/19 23 11/21/2022 COMPR EHENS ETHAN METAB OLIC PANEL potassium 4.0 mmol/ L 3.5-5. 3 normal Not Available [address], [address], 11/21/2022 13:05:40 11/20/19 23 11/21/2022 COMPR EHENS ETHAN METAB OLIC PANEL chloride 102 mmol/ L 98-110 normal Not Available [address], [address], 11/21/2022 13:05:40 11/20/19 23 11/21/2022 COMPR EHENS ETHAN METAB OLIC PANEL carbon dioxide 27 mmol/ L 20-32 normal Not Available [address], [address], 11/21/2022 13:05:40 11/20/19 23 11/21/2022 COMPR EHENS ETHAN METAB OLIC PANEL calcium 9.5 mg/dL 8.6-10 .2 normal Not Available [address], [address], 11/21/2022 13:05:40 11/20/19 23 11/21/2022 COMPR EHENS ETHAN METAB OLIC PANEL protein, total 7.3 g/dL 6.1-8. 1 normal Not Available [address], [address], 11/21/2022 13:05:40 11/20/19 23 11/21/2022 COMPR EHENS ETHAN METAB OLIC PANEL albumin 4.5 g/dL 3.6-5. 1 normal Not Available [address], [address], 11/21/2022 13:05:40 11/20/19 23 11/21/2022 COMPR EHENS ETHAN METAB OLIC PANEL globulin 2.8 g/dL_ (calc ) 1.9-3. 7 normal Not Available [address], [address], 11/21/2022 13:05:40 11/20/19 23 11/21/2022 COMPR EHENS ETHAN METAB OLIC PANEL albumin/glob ulin ratio 1.6 (calc ) 1.0-2. 5 normal Not Available [address], [address], 11/21/2022 13:05:40 11/20/19 23 11/21/2022 COMPR EHENS ETHAN METAB OLIC PANEL bilirubin, total 1.0 mg/dL 0.2-1. 2 normal Not Available [address], [address], 11/21/2022 13:05:40 11/20/19 23 11/21/2022 COMPR EHENS ETHAN METAB OLIC PANEL alkaline phosphatase 123 U/L 31-125 normal Not Available [address], [address], 11/21/2022 13:05:40 11/20/19 23 11/21/2022 COMPR EHENS ETHAN METAB OLIC PANEL AST 65 U/L 10-35 high Not Available [address], [address], 11/21/2022 13:05:40 11/20/19 23 11/21/2022 COMPR EHENS ETHAN METAB OLIC PANEL ALT 80 U/L 6-29 high Not Available [address], [address], 11/21/2022 13:05:40 11/20/19 23 11/21/2022 CBC (INCL UDES DIFF/ PLT) white blood cell count 4.0 thous and/u L 3.8-10 .8 normal Not Available [address], [address], 11/21/2022 13:05:41 11/20/19 23 11/21/2022 CBC (INCL UDES DIFF/ PLT) red blood cell count 4.10 josh on/uL 3.80-5 .10 normal Not Available [address], [address], 11/21/2022 13:05:41 11/20/19 23 11/21/2022 CBC (INCL UDES DIFF/ PLT) hemoglobin 14.5 g/dL 11.7-1 5.5 normal Not Available [address], [address], 11/21/2022 13:05:41 11/20/19 23 11/21/2022 CBC (INCL UDES DIFF/ PLT) hematocrit 40.2 % 35.0-4 5.0 normal Not Available [address], [address], 11/21/2022 13:05:41 11/20/19 23 11/21/2022 CBC (INCL UDES DIFF/ PLT) MCV 98.0 fL 80.0-1 00.0 normal Not Available [address], [address], 11/21/2022 13:05:41 11/20/19 23 11/21/2022 CBC (INCL UDES DIFF/ PLT) MCH 35.4 pg 27.0-3 3.0 high Not Available [facility] [address], [address], 11/21/2022 13:05:41 11/20/19 23 11/21/2022 CBC (INCL UDES DIFF/ PLT) MCHC 36.1 g/dL 32.0-3 6.0 high Not Available [facility] [address], [address], 11/21/2022 13:05:41 11/20/19 23 11/21/2022 CBC (INCL UDES DIFF/ PLT) RDW 12.0 % 11.0-1 5.0 normal Not Available [address], [address], 11/21/2022 13:05:41 11/20/19 23 11/21/2022 CBC (INCL UDES DIFF/ PLT) platelet count 238 thous and/u L 140-40 0 normal Not Available [address], [address], 11/21/2022 13:05:41 11/20/19 23 11/21/2022 CBC (INCL UDES DIFF/ PLT) MPV 11.8 fL 7.5-12 .5 normal Not Available [address], [address], 11/21/2022 13:05:41 11/20/19 23 11/21/2022 CBC (INCL UDES DIFF/ PLT) absolute neutrophils 2104 cells /uL 1500-7 800 normal Not Available [address], [address], 11/21/2022 13:05:41 11/20/19 23 11/21/2022 CBC (INCL UDES DIFF/ PLT) absolute lymphocytes 1356 cells /uL 850-39 00 normal Not Available [address], [address], 11/21/2022 13:05:41 11/20/19 23 11/21/2022 CBC (INCL UDES DIFF/ PLT) absolute monocytes 420 cells /uL 200-95 0 normal Not Available [address], [address], 11/21/2022 13:05:41 11/20/19 23 11/21/2022 CBC (INCL UDES DIFF/ PLT) absolute eosinophils 80 cells /uL 15-500 normal Not Available [address], [address], 11/21/2022 13:05:41 11/20/19 23 11/21/2022 CBC (INCL UDES DIFF/ PLT) absolute basophils 40 cells /uL 0-200 normal Not Available [address], [address], 11/21/2022 13:05:41 11/20/19 23 11/21/2022 CBC (INCL UDES DIFF/ PLT) neutrophils 52.6 % normal Not Available [address], [address], 11/21/2022 13:05:41 11/20/19 23 11/21/2022 CBC (INCL UDES DIFF/ PLT) lymphocytes 33.9 % normal Not Available [address], [address], 11/21/2022 13:05:41 11/20/19 23 11/21/2022 CBC (INCL UDES DIFF/ PLT) monocytes 10.5 % normal Not Available [address], [address], 11/21/2022 13:05:41 11/20/19 23 11/21/2022 CBC (INCL UDES DIFF/ PLT) eosinophils 2.0 % normal Not Available [address], [address], 11/21/2022 13:05:41 11/20/1911/21/2022 CBC (INCL UDES DIFF/ PLT) basophils 1.0 % normal Not Available [address], [address], 11/21/2022 13:05:41 12/11/19 23 12/12/2022 LIPID PANEL , STAND BARRON cholesterol, total 157 mg/dL <200 normal Not Available [address], [place], [address], 12/12/2022 12:40:29 12/11/1912/12/2022 LIPID PANEL , STAND BARRON HDL cholesterol 82 mg/dL > or = 50 normal Not Available [facility] [address] [place], [address], 12/12/2022 12:40:29 12/11/1912/12/2022 LIPID PANEL , STAND BARRON triglyceride s 44 mg/dL <150 normal Not Available [facility] [address] [place], [address], 12/12/2022 12:40:29 12/11/1912/12/2022 LIPID PANEL , STAND BARRON LDL-choleste rol 62 mg/dL _(frank c) normal Refer ence range : <100 Tiburcio able range <100 mg/dL for prima ry preve ntion ; <70 mg/dL for patie nts with CHD or diabe tic patie nts with > or = 2 CHD risk facto rs. LDL-C is now calcu lated using the Beth stark-Hop kins baljinderu yusra n, which is a valid ated novel jim casper acy than the Fried anat equat ion in the estim ation of LDL-C . Beth stark SS et al. MALDONADO. 2013; 310(1 9): 2061- 2068 (http ://ed ucati on.Qu Esa workman tics. com/f aq/FA Q164) Not Available [facility] [address], [place], [address], 12/12/2022 12:40:29 12/11/1912/12/2022 LIPID PANEL , STAND BARRON chol/HDLC ratio 1.9 (calc ) <5.0 normal Not Available [facility] [address] [place], [address], 12/12/2022 12:40:29 12/11/1912/12/2022 LIPID PANEL , STAND BARRON non HDL cholesterol 75 mg/dL _(frank c) <130 normal For patie nts with diabe gavin plus 1 major ASCVD risk facto r, treat ing to a non-H DL-C goal of <100 mg/dL (LDL- C of <70 mg/dL ) is consi keesha brothers pejas charles optio n. Not Available [address] [address] [place], [address], 12/12/2022 12:40:29 12/11/1912/12/2022 ALBUM IN, RANDO M URINE W/CRE ATINI NE creatinine, random urine 207 mg/dL 20-275 normal Not Available [address] [address] [address], [place], [address], 12/12/2022 12:40:30 12/11/1912/12/2022 ALBUM IN, RANDO M URINE W/CRE ATINI NE albumin, urine 3.7 mg/dL see note: normal Refer ence Range : Refer ence Range Not estab lishe d Not Available [address], [place], [address], 12/12/2022 12:40:30 12/11/1912/12/2022 ALBUM IN, RANDO M URINE W/CRE ATINI NE albumin/crea tinine ratio, random urine 18 mcg/m g_cre at <30 normal The ADA defin es abnor malit ies in album in excre tion as follo ws: Album inuri a Categ ory Resul t (mcg/ mg creat inine ) Bree l to Mildl y incre ased <30 Moder ately incre ased 30-29 9 Sever husam incre ased > OR = 300 The ADA recom mends that at least two of three speci mens colle cted withi n a 3-6 month perio d be abnor mal befor e consi mahnaz g a patie nt to be withi n a diagn ostic categ ory. Not Available [address] [address] [place], [address], 12/12/2022 12:40:30 12/11/1912/12/2022 HIV 1/2 ANTIG EN/AN TIBOD Y,FOU RTH GENER ATION W/RFL HIV Ag/Ab, 4TH gen NON-RE ACTIVE non-re active normal HIV-1 antig en and HIV-1 /HIV- 2 antib odies were not detec catherine. There is no labor atory evide nce of HIV infec tion. PLEAS E NOTE: This infor matio n has been discl osed to you from recor ds whose confi denti ality may be prote cted by state law. If your state requi res such prote ction , then the state law prohi bits you from rayna vela er discl osure of the infor matio n witho ut the speci fic writt en conse nt of the perso n to whom it perta ins, or as other valerio permi tted by law. A gener al autho rizat ion for the relea se of medic al or other infor matio n is NOT suffi cient for this purpo se. For addit ional infor matio n pleas e refer to http: //[facility] teo balbuena stdia gnost ics.c om/fa q/FAQ 106 (This link is being provi ded for infor matio nal/ educa miriam l purpo ses only. ) The perfo rmanc e of this assay has not been clini uriah valid ated in patie nts less than 2 years old. Not Available [facility] [address] [place], [address], 12/12/2022 12:40:31 12/11/1912/12/2022 COMPR EHENS ETHAN METAB OLIC PANEL glucose 83 mg/dL 65-99 normal Fasti ng refer ence inter wilbur Not Available [facility] [address] [place], [address], 12/12/2022 12:40:31 12/11/1912/12/2022 COMPR EHENS ETHAN METAB OLIC PANEL urea nitrogen (BUN) 11 mg/dL 7-25 normal Not Available [place] [address] [place], [address], 12/12/2022 12:40:31 12/11/1912/12/2022 COMPR EHENS ETHAN METAB OLIC PANEL creatinine 0.68 mg/dL 0.50-0 .99 normal Not Available [address] [address] [place], [address], 12/12/2022 12:40:31 12/11/1912/12/2022 COMPR EHENS ETHAN METAB OLIC PANEL eGFR 109 mL/mi n/1.7 3m2 > or = 60 normal Not Available [address], [address], 12/12/2022 12:40:31 12/11/1912/12/2022 COMPR EHENS ETHAN METAB OLIC PANEL BUN/creatini ne ratio SEE NOTE: (calc ) 6-22 Not Repor catherine: BUN and Creat inine are withi n refer ence range . Not Available [address], [address], 12/12/2022 12:40:31 12/11/1912/12/2022 COMPR EHENS ETHAN METAB OLIC PANEL sodium 138 mmol/ L 135-14 6 normal Not Available [address] [address] [place], [address], 12/12/2022 12:40:31 12/11/1912/12/2022 COMPR EHENS ETHAN METAB OLIC PANEL potassium 3.9 mmol/ L 3.5-5. 3 normal Not Available [address], [address], 12/12/2022 12:40:31 12/11/1912/12/2022 COMPR EHENS ETHAN METAB OLIC PANEL chloride 103 mmol/ L 98-110 normal Not Available [address] [place], [address], 12/12/2022 12:40:31 12/11/1912/12/2022 COMPR EHENS ETHAN METAB OLIC PANEL carbon dioxide 26 mmol/ L 20-32 normal Not Available [address], [address], 12/12/2022 12:40:31 12/11/1912/12/2022 COMPR EHENS ETHAN METAB OLIC PANEL calcium 9.1 mg/dL 8.6-10 .2 normal Not Available [address], [address], 12/12/2022 12:40:31 12/11/1912/12/2022 COMPR EHENS ETHAN METAB OLIC PANEL protein, total 7.0 g/dL 6.1-8. 1 normal Not Available [address], [address], 12/12/2022 12:40:31 12/11/1912/12/2022 COMPR EHENS ETHAN METAB OLIC PANEL albumin 4.3 g/dL 3.6-5. 1 normal Not Available [address], [address], 12/12/2022 12:40:31 12/11/1912/12/2022 COMPR EHENS ETHAN METAB OLIC PANEL globulin 2.7 g/dL_ (calc ) 1.9-3. 7 normal Not Available [address], [address], 12/12/2022 12:40:31 12/11/1912/12/2022 COMPR EHENS ETHAN METAB OLIC PANEL albumin/glob ulin ratio 1.6 (calc ) 1.0-2. 5 normal Not Available [address], [address], 12/12/2022 12:40:31 12/11/1912/12/2022 COMPR EHENS ETHAN METAB OLIC PANEL bilirubin, total 1.1 mg/dL 0.2-1. 2 normal Not Available [address], [address], 12/12/2022 12:40:31 12/11/1912/12/2022 COMPR EHENS ETHAN METAB OLIC PANEL alkaline phosphatase 136 U/L 31-125 high Not Available [facility] [address] [address] [place], [address], 12/12/2022 12:40:31 12/11/1912/12/2022 COMPR EHENS ETHAN METAB OLIC PANEL AST 66 U/L 10-35 high Not Available [address], [address], 12/12/2022 12:40:31 12/11/1912/12/2022 COMPR EHENS ETHAN METAB OLIC PANEL ALT 92 U/L 6-29 high Not Available [address], [address], 12/12/2022 12:40:31 12/11/1912/12/2022 CBC (INCL UDES DIFF/ PLT) white blood cell count 4.0 thous and/u L 3.8-10 .8 normal Not Available [address], [address], 12/12/2022 12:40:32 12/11/1912/12/2022 CBC (INCL UDES DIFF/ PLT) red blood cell count 4.15 josh on/uL 3.80-5 .10 normal Not Available [address], [address], 12/12/2022 12:40:32 12/11/1912/12/2022 CBC (INCL UDES DIFF/ PLT) hemoglobin 13.5 g/dL 11.7-1 5.5 normal Not Available [address], [address], 12/12/2022 12:40:32 12/11/1912/12/2022 CBC (INCL UDES DIFF/ PLT) hematocrit 40.6 % 35.0-4 5.0 normal Not Available [address], [address], 12/12/2022 12:40:32 12/11/1912/12/2022 CBC (INCL UDES DIFF/ PLT) MCV 97.8 fL 80.0-1 00.0 normal Not Available [address], [address], 12/12/2022 12:40:32 12/11/1912/12/2022 CBC (INCL UDES DIFF/ PLT) MCH 32.5 pg 27.0-3 3.0 normal Not Available [address], [address], 12/12/2022 12:40:32 12/11/1912/12/2022 CBC (INCL UDES DIFF/ PLT) MCHC 33.3 g/dL 32.0-3 6.0 normal Not Available [address], [address], 12/12/2022 12:40:32 12/11/1912/12/2022 CBC (INCL UDES DIFF/ PLT) RDW 12.2 % 11.0-1 5.0 normal Not Available [address], [address], 12/12/2022 12:40:32 12/11/1912/12/2022 CBC (INCL UDES DIFF/ PLT) platelet count 199 thous and/u L 140-40 0 normal Not Available [address], [address], 12/12/2022 12:40:32 12/11/1912/12/2022 CBC (INCL UDES DIFF/ PLT) MPV 12.0 fL 7.5-12 .5 normal Not Available [address], [address], 12/12/2022 12:40:32 12/11/1912/12/2022 CBC (INCL UDES DIFF/ PLT) absolute neutrophils 2024 cells /uL 1500-7 800 normal Not Available [address], [address], 12/12/2022 12:40:32 12/11/1912/12/2022 CBC (INCL UDES DIFF/ PLT) absolute lymphocytes 1432 cells /uL 850-39 00 normal Not Available [address], [address], 12/12/2022 12:40:32 12/11/1912/12/2022 CBC (INCL UDES DIFF/ PLT) absolute monocytes 412 cells /uL 200-95 0 normal Not Available [address], [address], 12/12/2022 12:40:32 12/11/1912/12/2022 CBC (INCL UDES DIFF/ PLT) absolute eosinophils 92 cells /uL 15-500 normal Not Available [address], [address], 12/12/2022 12:40:32 12/11/1912/12/2022 CBC (INCL UDES DIFF/ PLT) absolute basophils 40 cells /uL 0-200 normal Not Available [address], [address], 12/12/2022 12:40:32 12/11/1912/12/2022 CBC (INCL UDES DIFF/ PLT) neutrophils 50.6 % normal Not Available [address], [address], 12/12/2022 12:40:32 12/11/1912/12/2022 CBC (INCL UDES DIFF/ PLT) lymphocytes 35.8 % normal Not Available [address], [address], 12/12/2022 12:40:32 12/11/1912/12/2022 CBC (INCL UDES DIFF/ PLT) monocytes 10.3 % normal Not Available [address], [address], 12/12/2022 12:40:32 12/11/1912/12/2022 CBC (INCL UDES DIFF/ PLT) eosinophils 2.3 % normal Not Available [address], [address], 12/12/2022 12:40:32 12/11/1912/12/2022 CBC (INCL UDES DIFF/ PLT) basophils 1.0 % normal Not Available [address], [address], 12/12/2022 12:40:32 04/20/19 24 04/23/2023 ALBUM IN, RANDO M URINE W/CRE ATINI NE creatinine, random urine 384 mg/dL 20-275 high Not Available [address], [address], 04/23/2023 05:30:08 04/20/19 24 04/23/2023 ALBUM IN, RANDO M URINE W/CRE ATINI NE albumin, urine 10.6 mg/dL see note: normal Refer ence Range : Refer ence Range Not estab lishe d Not Available [address], [address], 04/23/2023 05:30:08 04/20/19 24 04/23/2023 ALBUM IN, RANDO M URINE W/CRE ATINI NE albumin/crea tinine ratio, random urine 28 mcg/m g_cre at <30 normal The ADA defin es abnor malit ies in album in excre tion as follo ws: Album inuri a Categ ory Resul t (mcg/ mg creat inine ) Bree l to Mildl y incre ased <30 Moder ately incre ased 30-29 9 Sever husam incre ased > OR = 300 The ADA recom mends that at least two of three speci mens colle cted withi n a 3-6 month perio d be abnor mal befor e consi mahnaz g a patie nt to be withi n a diagn ostic categ ory. Not Available [address], [address], 04/23/2023 05:30:08 04/20/19 24 04/23/2023 TSH+F REE T4 TSH 1.27 mIU/L normal Refer ence Range > or = 20 Years 0.40- 4.50 Pregn dann Range s First trime ster 0.26- 2.66 Secon d trime ster 0.55- 2.73 Third trime ster 0.43- 2.91 Not Available [address], [address], 04/23/2023 05:30:09 04/20/19 24 04/23/2023 TSH+F REE T4 T4, free 1.1 NG/dL 0.8-1. 8 normal Not Available [address], [address], 04/23/2023 05:30:09 04/20/19 24 04/23/2023 COMPR EHENS ETHAN METAB OLIC PANEL glucose 65 mg/dL 65-99 normal Fasti ng refer ence inter wilbur Not Available [address], [address], 04/23/2023 05:30:11 04/20/19 24 04/23/2023 COMPR EHENS ETHAN METAB OLIC PANEL urea nitrogen (BUN) 14 mg/dL 7-25 normal Not Available [address], [address], 04/23/2023 05:30:11 04/20/19 24 04/23/2023 COMPR EHENS ETHAN METAB OLIC PANEL creatinine 0.77 mg/dL 0.50-0 .99 normal Not Available [address], [address], 04/23/2023 05:30:11 04/20/19 24 04/23/2023 COMPR EHENS ETHAN METAB OLIC PANEL eGFR 96 mL/mi n/1.7 3m2 > or = 60 normal Not Available [address], [address], 04/23/2023 05:30:11 04/20/19 24 04/23/2023 COMPR EHENS ETHAN METAB OLIC PANEL BUN/creatini ne ratio SEE NOTE: (calc ) 6-22 Not Repor catherine: BUN and Creat inine are withi n refer ence range . Not Available [address], [address], 04/23/2023 05:30:11 04/20/19 24 04/23/2023 COMPR EHENS ETHAN METAB OLIC PANEL sodium 141 mmol/ L 135-14 6 normal Not Available [address], [address], 04/23/2023 05:30:11 04/20/19 24 04/23/2023 COMPR EHENS ETHAN METAB OLIC PANEL potassium 3.8 mmol/ L 3.5-5. 3 normal Not Available [address], [address], 04/23/2023 05:30:11 04/20/19 24 04/23/2023 COMPR EHENS ETHAN METAB OLIC PANEL chloride 103 mmol/ L 98-110 normal Not Available [address], [place], [address], 04/23/2023 05:30:11 04/20/19 24 04/23/2023 COMPR EHENS ETHAN METAB OLIC PANEL carbon dioxide 30 mmol/ L 20-32 normal Not Available [facility] [address], [address], 04/23/2023 05:30:11 04/20/19 24 04/23/2023 COMPR EHENS ETHAN METAB OLIC PANEL calcium 9.6 mg/dL 8.6-10 .2 normal Not Available [facility] [address], [address], 04/23/2023 05:30:11 04/20/19 24 04/23/2023 COMPR EHENS ETHAN METAB OLIC PANEL protein, total 7.0 g/dL 6.1-8. 1 normal Not Available [address], [address], 04/23/2023 05:30:11 04/20/19 24 04/23/2023 COMPR EHENS ETHAN METAB OLIC PANEL albumin 4.5 g/dL 3.6-5. 1 normal Not Available [address], [address], 04/23/2023 05:30:11 04/20/19 24 04/23/2023 COMPR EHENS ETHAN METAB OLIC PANEL globulin 2.5 g/dL_ (calc ) 1.9-3. 7 normal Not Available [facility] [address], [address], 04/23/2023 05:30:11 04/20/19 24 04/23/2023 COMPR EHENS ETHAN METAB OLIC PANEL albumin/glob ulin ratio 1.8 (calc ) 1.0-2. 5 normal Not Available [facility] [address], [address], 04/23/2023 05:30:11 04/20/19 24 04/23/2023 COMPR EHENS ETHAN METAB OLIC PANEL bilirubin, total 1.0 mg/dL 0.2-1. 2 normal Not Available [address], [address], 04/23/2023 05:30:11 04/20/19 24 04/23/2023 COMPR EHENS ETHAN METAB OLIC PANEL alkaline phosphatase 122 U/L 31-125 normal Not Available [address], [address], 04/23/2023 05:30:11 04/20/19 24 04/23/2023 COMPR EHENS ETHAN METAB OLIC PANEL AST 78 U/L 10-35 high Not Available [address], [address], 04/23/2023 05:30:11 04/20/19 24 04/23/2023 COMPR EHENS ETHAN METAB OLIC PANEL ALT 93 U/L 6-29 high Not Available [address], [address], 04/23/2023 05:30:11 04/20/19 24 04/23/2023 URINA LYSIS , COMPL ETE W/REF YESSI TO CULTU RE color DARK YELLOW yellow normal Not Available [address], [address], 04/23/2023 05:30:12 04/20/19 24 04/23/2023 URINA LYSIS , COMPL ETE W/REF YESSI TO CULTU RE appearance CLOUDY clear abnormal Not Available [address], [address], 04/23/2023 05:30:12 04/20/19 24 04/23/2023 URINA LYSIS , COMPL ETE W/REF YESSI TO CULTU RE specific gravity 1.021 1.001- 1.035 normal Not Available [address], [address], 04/23/2023 05:30:12 04/20/19 24 04/23/2023 URINA LYSIS , COMPL ETE W/REF YESSI TO CULTU RE pH 6.0 5.0-8. 0 normal Not Available [address], [address], 04/23/2023 05:30:12 04/20/19 24 04/23/2023 URINA LYSIS , COMPL ETE W/REF YESSI TO CULTU RE glucose NEGATI VE negati ve normal Not Available [address], [address], 04/23/2023 05:30:12 04/20/19 24 04/23/2023 URINA LYSIS , COMPL ETE W/REF YESSI TO CULTU RE bilirubin NEGATI VE negati ve normal Not Available [address], [address], 04/23/2023 05:30:12 04/20/19 24 04/23/2023 URINA LYSIS , COMPL ETE W/REF YESSI TO CULTU RE ketones TRACE negati ve abnormal Not Available [address], [address], 04/23/2023 05:30:12 04/20/19 24 04/23/2023 URINA LYSIS , COMPL ETE W/REF YESSI TO CULTU RE occult blood 3+ negati ve abnormal Not Available [facility] [address] [place], [address], 04/23/2023 05:30:12 04/20/19 24 04/23/2023 URINA LYSIS , COMPL ETE W/REF YESSI TO CULTU RE protein 1+ negati ve abnormal Not Available [facility] [address], [address], 04/23/2023 05:30:12 04/20/19 24 04/23/2023 URINA LYSIS , COMPL ETE W/REF YESSI TO CULTU RE nitrite NEGATI VE negati ve normal Not Available [address], [address], 04/23/2023 05:30:12 04/20/19 24 04/23/2023 URINA LYSIS , COMPL ETE W/REF YESSI TO CULTU RE leukocyte esterase TRACE negati ve abnormal Not Available [address], [address], 04/23/2023 05:30:12 04/20/19 24 04/23/2023 URINA LYSIS , COMPL ETE W/REF YESSI TO CULTU RE WBC 0-5 /hpf < or = 5 normal Not Available [address], [address], 04/23/2023 05:30:12 04/20/19 24 04/23/2023 URINA LYSIS , COMPL ETE W/REF YESSI TO CULTU RE RBC > OR = 60 /hpf < or = 2 abnormal Not Available [address], [address], 04/23/2023 05:30:12 04/20/19 24 04/23/2023 URINA LYSIS , COMPL ETE W/REF YESSI TO CULTU RE squamous epithelial cells 0-5 /hpf < or = 5 Not Available [address], [address], 04/23/2023 05:30:12 04/20/19 24 04/23/2023 URINA LYSIS , COMPL ETE W/REF YESSI TO CULTU RE bacteria FEW /hpf none seen abnormal Not Available [address], [address], 04/23/2023 05:30:12 04/20/19 24 04/23/2023 URINA LYSIS , COMPL ETE W/REF YESSI TO CULTU RE hyaline cast NONE SEEN /lpf none seen normal Not Available [facility] [address] [address] [place], [address], 04/23/2023 05:30:12 04/20/19 24 04/23/2023 URINA LYSIS , COMPL ETE W/REF YESSI TO CULTU RE reflexive urine culture CULTU RE INDIC ATED - RESUL TS TO FOLLO W Not Available [facility] [address] [place], [address], 04/23/2023 05:30:12 04/20/19 24 04/23/2023 URINA LYSIS , COMPL ETE W/REF YESSI TO CULTU RE culture, urine, routine SEE NOTE CULTU RE, URINE , ROUTI NE Micro Numbe r: [id number] Test Statu s: Final Speci men Sourc e: Urine Speci men Quali ty: Adequ ate Resul t: Mixed genit al sheree isola catherine. These super ficia l bacte soo are not indic ative of a urina ry tract infec tion. No furth er organ ism ident ifica tion is warra nted on this speci men. If clini uriah indic ated, recol lect clean -catc h, mid-s tream urine and trans demetra immed iatel y to Urine Cultu re Trans port Tube. Not Available [address], [address], 04/23/2023 05:30:12 04/20/19 24 04/23/2023 CBC (INCL UDES DIFF/ PLT) (REFL ) white blood cell count 3.3 thous and/u L 3.8-10 .8 low Not Available [facility] [address] [address] [place], [address], 04/23/2023 05:30:13 04/20/19 24 04/23/2023 CBC (INCL UDES DIFF/ PLT) (REFL ) red blood cell count 4.12 josh on/uL 3.80-5 .10 normal Not Available [facility] [address] [place], [address], 04/23/2023 05:30:13 04/20/19 24 04/23/2023 CBC (INCL UDES DIFF/ PLT) (REFL ) hemoglobin 13.1 g/dL 11.7-1 5.5 normal Not Available [address], [address], 04/23/2023 05:30:13 04/20/19 24 04/23/2023 CBC (INCL UDES DIFF/ PLT) (REFL ) hematocrit 39.4 % 35.0-4 5.0 normal Not Available [address], [address], 04/23/2023 05:30:13 04/20/19 24 04/23/2023 CBC (INCL UDES DIFF/ PLT) (REFL ) MCV 95.6 fL 80.0-1 00.0 normal Not Available [address], [address], 04/23/2023 05:30:13 04/20/19 24 04/23/2023 CBC (INCL UDES DIFF/ PLT) (REFL ) MCH 31.8 pg 27.0-3 3.0 normal Not Available [address], [address], 04/23/2023 05:30:13 04/20/19 24 04/23/2023 CBC (INCL UDES DIFF/ PLT) (REFL ) MCHC 33.2 g/dL 32.0-3 6.0 normal Not Available [address], [address], 04/23/2023 05:30:13 04/20/19 24 04/23/2023 CBC (INCL UDES DIFF/ PLT) (REFL ) RDW 12.4 % 11.0-1 5.0 normal Not Available [address], [address], 04/23/2023 05:30:13 04/20/19 24 04/23/2023 CBC (INCL UDES DIFF/ PLT) (REFL ) platelet count 203 thous and/u L 140-40 0 normal Not Available [address], [address], 04/23/2023 05:30:13 04/20/19 24 04/23/2023 CBC (INCL UDES DIFF/ PLT) (REFL ) MPV 11.3 fL 7.5-12 .5 normal Not Available [address], [address], 04/23/2023 05:30:13 04/20/19 24 04/23/2023 CBC (INCL UDES DIFF/ PLT) (REFL ) absolute neutrophils 1607 cells /uL 1500-7 800 normal Not Available [address], [address], 04/23/2023 05:30:13 04/20/19 24 04/23/2023 CBC (INCL UDES DIFF/ PLT) (REFL ) absolute lymphocytes 1208 cells /uL 850-39 00 normal Not Available [address], [address], 04/23/2023 05:30:13 04/20/19 24 04/23/2023 CBC (INCL UDES DIFF/ PLT) (REFL ) absolute monocytes 356 cells /uL 200-95 0 normal Not Available [address], [address], 04/23/2023 05:30:13 04/20/19 24 04/23/2023 CBC (INCL UDES DIFF/ PLT) (REFL ) absolute eosinophils 99 cells /uL 15-500 normal Not Available [address], [address], 04/23/2023 05:30:13 04/20/19 24 04/23/2023 CBC (INCL UDES DIFF/ PLT) (REFL ) absolute basophils 30 cells /uL 0-200 normal Not Available [address], [address], 04/23/2023 05:30:13 04/20/19 24 04/23/2023 CBC (INCL UDES DIFF/ PLT) (REFL ) neutrophils 48.7 % normal Not Available [address], [address], 04/23/2023 05:30:13 04/20/19 24 04/23/2023 CBC (INCL UDES DIFF/ PLT) (REFL ) lymphocytes 36.6 % normal Not Available [address], [address], 04/23/2023 05:30:13 04/20/19 24 04/23/2023 CBC (INCL UDES DIFF/ PLT) (REFL ) monocytes 10.8 % normal Not Available [address], [address], 04/23/2023 05:30:13 04/20/19 24 04/23/2023 CBC (INCL UDES DIFF/ PLT) (REFL ) eosinophils 3.0 % normal Not Available [address], [address], 04/23/2023 05:30:13 04/20/19 24 04/23/2023 CBC (INCL UDES DIFF/ PLT) (REFL ) basophils 0.9 % normal Not Available [address], [address], 04/23/2023 05:30:13 04/20/19 24 04/23/2023 T3, FREE T3, free 3.5 pg/mL 2.3-4. 2 normal Not Available [address], [address], 04/23/2023 05:30:13 04/27/19 24 04/28/2023 HCG, TOTAL , QN HCG, total, qn <5 mIU/m L normal Refer ence Range Nonpr egnan t or preme nopau ananya <5 Postm enopa usal <10 Value s from diffe rent assay metho ds may vary. The use of this assay to monit or or to diagn ose patie nts with cance r or any condi tion unrel ated to pregn dann has not been clear ed or appro suzanne by the FDA or the [facility] er of the assay . Not Available [facility] [address] [address] [place], [address], 04/28/2023 04:15:55 07/19/1907/19/2023 qamar metry testi ng* Spirometry Not Available [facility] [address], [place], [address], 07/13/2023 18:33:42 01/05/2001/06/2024 LIPID PANEL , STAND BARRON cholesterol, total 167 mg/dL <200 normal Not Available [facility] [address] [address] [place], [address], 01/06/2024 03:32:50 01/05/20 24 01/06/2024 LIPID PANEL , STAND BARRON HDL cholesterol 84 mg/dL > or = 50 normal Not Available [facility] [address] [address] [place], [address], 01/06/2024 03:32:50 01/05/20 24 01/06/2024 LIPID PANEL , STAND BARRON triglyceride s 53 mg/dL <150 normal Not Available [facility] [address] [address] [place], [address], 01/06/2024 03:32:50 01/05/20 24 01/06/2024 LIPID PANEL , STAND [place]ON LDL-choleste rol 70 mg/dL _(frank c) normal Refer ence range : <100 Tiburcio able range <100 mg/dL for prima ry preve ntion ; <70 mg/dL for patie nts with CHD or diabe tic patie nts with > or = 2 CHD risk facto rs. LDL-C is now calcu lated using the [facility] kins lino stark, which is a valid ated novel jim espinoza accur acy than the Fried anat equat ion in the estim ation of LDL-C . Beth stark SS et al. MALDONADO. 2013; 310(1 9): 2061- 2068 (http ://ed ucati on.Qu estDi jacinta tics. com/f aq/FA Q164) Not Available [facility] [address] [address] [place], [address], 01/06/2024 03:32:50 01/05/2001/06/2024 LIPID PANEL , STAND BARRON chol/HDLC ratio 2.0 (calc ) <5.0 normal Not Available [facility] [address] [address] [place], [address], 01/06/2024 03:32:50 01/05/20 24 01/06/2024 LIPID PANEL , STAND BARRON non HDL cholesterol 83 mg/dL _(frank c) <130 normal For patie nts with diabe gavin plus 1 major ASCVD risk facto r, treat ing to a non-H DL-C goal of <100 mg/dL (LDL- C of <70 mg/dL ) is consi dered a thera pejas c optio n. Not Available [facility] [address] [address] [place], [address], 01/06/2024 03:32:50 05/21/19 CT ABD+p el wwo con [facility] [address] [facility] [address] [address] Orderi ng Provid er: TRISTIN ED LEON INDICA TION: Elevat ed liver enzyme s, micros copic hematu soo, low back and flank pain DOSE OPTIMI ZATION : This facili ty uses dose optimi zation techni ques as approp riate to perfor m exams, includ ing at least one of the follow ing techni ques: 1. Automa catherine exposu re contro l. 2. Adjust ment of the mA and/or kV accord ing to patien t size (this includ es techni ques or standa rdized protoc ols for target ed exams where dose is matche d to the indica tion/r tessa for exam, i.e. extrem ities or head). 3. Use of iterat ethan recons tructi ve techni que. TECHNI QUE: CT abdome n and pelvis was perfor med with and withou t IV contra st COMPAR LORI: None FINDIN GS: The heart is enlarg ed. There is pneumo bilia withou t common bile duct disten tion seen. There are clips in the gallbl adder fossa noted. No other focal liver, spleni c, pancre atic, or adrena l lesion is seen. There is a right inferi or renal calcul i measur ing 9 mm. No left renal calcul i is apprec iated. There are small hypoat tenuat ing areas seen in bilate ral kidney s which do not fill-i n with contra st on delaye d imagin g and these likely repres ent small cysts or fat-co ntaini ng areas. No other suspic ious renal lesion or renal mass is noted. There is an incomp letely charac terize d duplic ated collec ting system s seen on the left. No suspic ious bladde r lesion is seen. There is incomp lete opacif icatio n of the entire ureter s. Vascul ar calcif icatio ns in the pelvis are seen in the possib ility of intrap eriton eal and pelvic fat limit evalua tion along with the lack of comple te fillin g of the ureter s with contra st. Gross hydrou reter is not apprec iated howeve r. No free fluid in the pelvis is seen. The presen ce of stool, lack of oral contra st, lack of intrap eriton eal fat, and lack of disten tion limit evalua tion. Obviou s bridget lonic inflam matory change s are not apprec iated. No small bowel disten tion is seen. There are postsu rgical change s in the right lower quadra nt. Tiny hypoat tenuat ing area in the left adnexa may be relate d to domina nt follic le or small cyst. Periao rtic lympha denopa thy by size criter ia is not apprec iated. Mild degene rative change s are noted. IMPRES DESHAUN: 1. Nonobs tructi ng right renal calcul i withou t suspic ious renal mass, hydron ephros is or hydrou reter. 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 Enlarg ed heart 3. Postsu rgical change s with pneumo bilia as above. Referr ed By: TRISTIN DE LEON Electr onical ly Signed By: Dewayne Gay MD on 11:48 PM Interp reted By: Dewayne Gay MD, 11:40 PM [email or web address] [facility]? [facility], [place], [address], 07/13/2023 18:41:07 05/27/19 24 US, abdom en, limit ed [facility] [place] [address] Orderi ng Provid er: TRISTIN DE LEON INDICA TION: abn lab COMPAR LORI: CT abdome n/pelv is, 20 May 2023 FINDIN GS: Limite d abdomi nal sonogr aphy was perfor med and showed a normal appear ing inferi or vena cava. The liver is normal in echoge nicity and cranio caudal dimens ion. No focal parenc hymal lesion s are seen. No intrah epatic biliar y ductal dilati on. Portal and hepati c veins are patent with approp riate direct ional flow. Status post cholec ystect jaz. Common bile duct is within normal limits , measur ing 0.4 cm. Visual ized portio n of the pancre as appear s unrema rkable . Pancre as is partia lly obscur ed by bowel gas shadow . Right kidney measur es 12.6 x 3.7 x 5.4 cm. Renal echote xture is within normal limits withou t eviden ce of focal parenc hymal abnorm ality. No eviden ce of hydron ephros is. 1.4 cm nonobs tructi ng calcul us in the inferi or pole of the right kidney . No perine phric fluid is seen. Left kidney was not includ ed in this study. IMPRES DESHAUN: 1. No acute abnorm ality identi fied. 2. Nonobs tructi ng calcul us in the inferi or pole of the right kidney . 3. Cholec ystect jaz. 4. Partia l visual izatio n of pancre as. Referr ed By: TRISTIN Chahal onical ly Signed By: Wilber Easley MD on 05/27/19 4:16 PM Interp reted By: Wilber Easley MD, 05/27/19 1:[address]? [address], [place], [address], 07/13/2023 18:41:07 07/13/19 qamar metry testi ng* No observ ation record ed. [address], [facility] [address], [place], [address], 12/15/2023 13:53:23 12/15/1912/15/2023 elect rocar diogr am No observ ation record ed. [address], [facility] [address], [place], [address], 12/15/2023 15:12:32 12/18/1912/15/2023 elect rocar diogr am No observ ation record ed. [email or web address] [facility], [facility] [address], [place], [address], 12/19/2023 11:05:43 Result Notes None recorded. 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 Tristin De Leon MD [address], [place], [address], [facility] 3 17:05:21 COVID-19 890389569 Active 2022 Tristin De Leon MD [address], [place], [address], [facility] 3 21:13:01 Obsessive-comp ulsive disorder 632341302 Active 2022 Tristin De Leon MD [address], [place], [address], [facility] 3 17:57:42 Chronic insomnia 285734066 Active 2022 Tristin De Leon MD [address], [place], [address], [facility] 3 17:43:24 Loss of hair 626132129 Active 2022 Tristin De Leon MD [address], [place], [address], [facility] 3 17:51:51 Liver enzymes level above reference range 748867101 Active 2022 Tristin De Leon MD [address], [place], [address], [facility] 3 17:20:48 Problem Notes None recorded. Procedures Surgical History Date Name Laterality Status Provider Name and Address Organization Details Recorded Time 09/22/19 14 placement of stent in coronary artery completed Tristin De Leon MD [address], [place], [address], [place] [facility] 07/27/2020 20:14:25 Appendectomy completed [facility] 11/10/2017 09:41:36 Cholecystectomy completed [facility] 11/10/2017 09:41:52 Breast Surgery completed [facility] 11/10/2017 09:42:17 Breast Surgery completed [facility] 11/10/2017 09:42:39 Imaging Results Imaging Date Name Status LastModified by Organization Details LastModified Time 05/21/2023 CT ABD+pel wwo con completed [address]? [address], [address], 07/13/2023 18:41:07 05/27/2023 US, abdomen, limited completed [address]? [address], [address], 07/13/2023 18:41:07 07/13/2023 spirometry testing* completed [address], [facility] [address], [place], [address], 12/15/2023 13:53:23 12/15/2023 electrocardiogram completed [address] fl[address] [facility] [address], [place], [address], 12/15/2023 15:12:32 12/15/2023 [facility] [address], [place], [address], 12/19/2023 11:05:43 Procedure Notes None recorded. Medical Equipment None [...] 5 mg capsule 11/15 completed -- Disconti jose a by Cardiolo gist Dr. Matt armstrong III [...] t Available Vitals Date Recorded Body height Heart rate Respiratory rate Body temperature Body weight Systolic blood pressure Diastolic blood pressure Provider Name and Address Organization Details Last Updated DateTime 175.26 cm 72 /min 16 /min 97.7 [degF] 59063.5 2 g 123 mm[Hg] 76 mm[Hg] Pennie Rosas [facility] 3 17:13:18 Date Recorded Body mass index (BMI) Provider Name and Address Organization Details Last Updated DateTime 09/29/2022 20.8 kg/m2 Tristin De Leon MD [address] [facility] [address], [place], [address], [facility] 09/29/2022 17:55:17 Date Recorded Body height Heart rate Respiratory rate Body temperature Body mass index (BMI) Body weight Systolic blood pressure Diastolic blood pressure Provider Name and Address Organization Details Last Updated DateTime 3 175.26 cm 71 /min 16 /min 98.2 [degF] 20.8 kg/m2 42929.5 2 g 135 mm[Hg] 71 mm[Hg] Angle Mcmillan [facility] 3 17:05:47 Date Recorded Body height Heart rate Respiratory rate Body temperature Body mass index (BMI) Body weight Systolic blood pressure Diastolic blood pressure Provider Name and Address Organization Details Last Updated DateTime 4 175.26 cm 72 /min 16 /min 97.6 [degF] 20.5 kg/m2 96761.3 4 g 131 mm[Hg] 65 mm[Hg] Pennie [facility] 4 16:30:09 Date Recorded Body height Heart rate Respiratory rate Body temperature Body mass index (BMI) Body weight Systolic blood pressure Diastolic blood pressure Provider Name and Address Organization Details Last Updated DateTime 4 175.26 cm 65 /min 16 /min 97.5 [degF] 19.8 kg/m2 71143.3 8 g 132 mm[Hg] 86 mm[Hg] Pennie Rosas [facility] 4 17:42:04 Date Recorded Body height Body mass index (BMI) Body weight Body temperature Respiratory rate Heart rate Provider Name and Address Organization Details Last Updated DateTime 4 175.26 cm 20.2 kg/m2 82766.1 5 g 97.7 [degF] 16 /min 80 /min Yi Rojas [facility] 4 12:50:34 Date Recorded Systolic blood pressure Diastolic blood pressure Provider Name and Address Organization Details Last Updated DateTime 12/15/2023 141 mm[Hg] 79 mm[Hg] Tristin De Leon MD [address] [facility] [address], [place], [address], [facility] 12/15/2023 13:43:18 Social History Question Answer Notes LastModified by Organizat ion Details LastModified Time Tobacco Smoking Status Never Smoker Jeanie Silva [facility] 11/10/2017 09:43:55 What Is Your Level Of Alcohol Consumption? Occasional [email or web address] Information not available 11/10/2017 What Is Your Level Of Caffeine Consumption? Moderate 1/2 Soda Per Day [email or web address] Information not available 04/06/2023 How Much Tobacco Do You Chew? None Information not available 07/27/2020 Which Illicit Or Recreational Drugs Have You Used? None Information not available 07/27/2020 What Is Your Occupation? [employer] [email or web address] Information not available 04/06/2023 Marital Status [email or web address] Informatio n not available 04/06/2023 What Was [...] Immunizations Vaccine Type Date Status Note Provider Allen hudson and Address Organization Details Recorded Time COVID-19, mRNA, LNP-S, PF, 30 mcg/0.3 mL dose 06/16/2020 completed Mihaela cuadra [facility] 07/27/2020 19:13:16 COVID-19, mRNA, LNP-S, PF, 30 mcg/0.3 mL dose 07/07/[address] [facility] 07/27/2020 19:13:25 Past Encounters Encounter ID Performer Location Encounter Start Date Encounter Closed Date Diagnosis/Indication Diagnosis SNOMED-CT Code Diagnosis ICD10 Code [id number] [facility], [facility] [address] [place] [address] 11/15/2017 16:11:25 11/15/2017 19:20:36 Benign essential hypertension 0886007 I10 Fatigue 80751465 R53.83 Increased liver function 30966543 R94.5 K75.9 R79.9 Hyperlipid emia screening 179471275 Z13.220 Immunization refused 275 879802 Z28.20 Screening for malignant neoplasm of breast 061653177 Z12.31 Screening for malignant neoplasm of cervix 323373338 Z12.[id number] [facility], [facility] [address] [place] [address] 12/13/2017 15:10:01 12/13/2017 17:00:21 Adult health examination 087032980 Z00.00 Fatigue 37998258 R53.83 Benign ess ential hypertension 7006392 I10 Increased liver function 47072244 R94.5 K75.9 R79.9 Immunization refused 275 733368 Z28.20 Screening for malignant neoplasm of breast 535490243 Z12.31 Screening for malignant neoplasm of cervix 226546907 Z12.4 [id number] [address]istin De Leon MD [facility], [facility] [address] [place] [address] 07/27/2020 18:13:24 07/27/2020 20:31:41 Fatigue 01289147 R53.83 Increased liver function 84970535 R94.5 K75.9 R79.9 Immunization refused 275 903737 Z28.20 Screening for malignant neoplasm of breast 720790440 Z12.31 Screening for malignant neoplasm of cervix 499098769 Z12.4 Hepatitis C screening 41 3660858 Z11.59 Essential hypertension 26231235 I10 Dyspnea on exertion 6084 5006 R06.09 Serum iron above reference range 742313006 R79.0 Lymphadenopathy 84904251 R59.0 [id number] Tristin De Leon MD [employer] [facility] [address] [place] [address] 07/07/2021 14:35:13 07/07/2021 16:47:48 Essential hypertension 99557270 I10 Dyspnea on exertion 6084 5006 R06.09 Fatigue 30310230 R53.83 Lymphadenopathy 80387697 R59.0 Serum iron above reference range 745438348 R79.0 Increased liver function 01947497 R94.5 K75.9 R79.9 Hepatitis C screening 41 4779300 Z11.59 Immunization refused 275 651718 Z28.20 Screening for malignant neoplasm of breast 090369074 Z12.31 Screening for malignant neoplasm of cervix 620474932 Z12.4 Screening for malignant neoplasm of colon 404250440 Z12.11 Acute stress disorder 67 F43.0 [id number] Tristin De Leon MD [place] [employer] [facility] [address] [place] [address] 01/25/2022 15:33:03 01/25/2022 18:13:45 Adult health examination 803635086 Z00.00 Essential hypertension 56743726 I10 Dyspnea on exertion 6084 5006 R06.09 Fatigue 87933083 R53.83 Lymphadenopathy 35735637 R59.0 Serum iron above reference range 983229957 R79.0 Increased liver function 21933037 R94.5 K75.9 R79.9 Screening for malignant neoplasm of colon 690237162 Z12.11 Hepatitis C screening 41 7550937 Z11.59 Immunization refused 275 021738 Z28.20 Screening for malignant neoplasm of breast 029388796 Z12.31 Screening for malignant neoplasm of cervix 529175259 Z12.4 Acute stress disorder 67 F43.0 Body mass index 20-24 - normal 722712110 Z68.22 [id number] Tristin De Leon MD [employer] [facility] [address] [place] [address] 05/24/2022 15:38:07 05/24/2022 17:24:33 Attention deficit hyperactivity disorder, predominantly inattentive type 53407945 F90.0 [id number] Tristin De Leon MD [employer] [facility] [address] [place] [address] 06/10/2022 11:50:43 06/10/2022 13:57:24 Attention deficit hyperactivity disorder, predominantly inattentive type 93727912 F90.0 [id number] Tristin De Leon MD [facility], [facility] [address] [place] [address] 09/29/2022 16:03:20 09/29/2022 18:12:26 Attention deficit hyperactivity disorder, predominantly inattentive type 13596181 F90.0 Essential hypertension 30522030 I10 Obsessive- compulsive disorder 027747391 F42.9 Asthma 040112425 J45.90 9 Body mass index 20-24 - normal 246331669 Z68.22 Hepatitis C screening 41 1249017 Z11.59 HIV screening 790357205 Z11.4 Active or passive immunization 386864882 Z23 Screening for malignant neoplasm of colon 328320134 Z12.11 Screening for malignant neoplasm of breast 564412132 Z12.31 Gynecologi c examination 53768588 Z01.419 Hyperlipid emia screening 463031373 Z13.220 [id number] Tristin De Leon MD [place] [employer] [facility], [facility] [address] [place] [address] 12/07/2022 15:32:15 12/07/2022 18:02:22 Attention deficit hyperactivity disorder, predominantly inattentive type 44409373 F90.0 Essential hypertension 51201140 I10 Asthma 303550428 J45.90 9 Obsessive- compulsive disorder 499795498 F42.9 Body mass index 20-24 - normal 564169820 Z68.22 Hyperlipid emia screening 719890568 Z13.220 Hepatitis C screening 41 1496931 Z11.59 HIV screening 386471595 Z11.4 Active or passive immunization 145512333 Z23 Screening for malignant neoplasm of colon 039483467 Z12.11 Screening for malignant neoplasm of breast 270255550 Z12.31 Gynecologi c examination 89085548 Z01.419 Chronic insomnia 9220627 04 F51.04 Loss of hair 458662251 L 65.9 [id number] Tristin De Leon MD [place] [employer] [facility], [facility] [address] [place] [address] 04/06/2023 15:35:54 04/06/2023 17:41:41 Attention deficit hyperactivity disorder, predominantly inattentive type 04903732 F90.0 Essential hypertension 39506804 I10 Asthma 035702190 J45.90 9 Obsessive- compulsive disorder 318841449 F42.9 Loss of hair 983899144 L 65.9 Body mass index 20-24 - normal 981199922 Z68.22 Hyperlipid emia screening 899073667 Z13.220 Hepatitis C screening 41 6671297 Z11.59 HIV screening 621588656 Z11.4 Active or passive immunization 638979727 Z23 Screening for malignant neoplasm of colon 886092271 Z12.11 Screening for malignant neoplasm of breast 363878130 Z12.31 Gynecologi c examination 17829219 Z01.419 Liver enzy mes level above reference range 421533320 R74.8 Right flank pain 3745718 09 R10.9 [id number] Tristin De Leon MD [place] [employer] [facility], [facility] [address] [place] [address] 07/13/2023 16:09:32 07/13/2023 19:29:46 Attention deficit hyperactivity disorder, predominantly inattentive type 63849981 F90.0 Asthma 618567724 J45.90 9 Essential hypertension 28322845 I10 Cough 73928953 R05.9 [id number] [facility] [address] [place] [address] 12/15/2023 11:22:16 12/15/2023 14:07:26 Liver enzymes level above reference range 250464821 R74.8 Essential hypertension 91079469 I10 Attention deficit hyperactivity disorder, predominantly inattentive type 41146385 F90.0 Asthma 951728699 J45.90 9 Active or passive immunization 127279732 Z23 Screening for malignant neoplasm of colon 629069146 Z12.11 Screening for malignant neoplasm of breast 510541313 Z12.31 Gynecologi c examination 50453967 Z01.419 Screening for cardiovascular system disease 367061662 Z13.6 Health Concerns Section Related Observation LastModified by Organization Detai ls LastModified Time None Recorded Concern Status LastModified by Organization Details LastModified Time None Recorded Advance Directives Directive None Recorded Payers Encounter Date Sequence Insurance Name Policy Number Policy Babin Covered Member ID Babin Member ID Guarantor Name 09/29/2022 1 [facility] [id number] Paola V Mike [id number] Paola V Mike 12/07/2022 1 [facility] [id number] Paola V Mike [id number] Paola V Mike 04/06/2023 1 [facility] [id number] Paola V Mike [id number] Paola V Mike 07/13/2023 1 [facility] [id number] Paola V Mike [id number] Paola V Mike 12/15/2023 1 [facility] [id number] Paola V Mike [id number] 2 Paola V Mike Notes Date Note Type Note Provider Name and Address Organization Details Recorded Time 09/29/2022 text/html Pt comes in for f/u of ADD, HTN, Asthma, and weight monitoring. Pt feels well and has no c/o. Pt has no new sx and no increasing sx. Patient denies any jaw or neck discomfort, left arm pain/left arm discomfort, chest discomfort/pain, diaphoresis, breathing symptoms/chest tightness, indigestion sx, n/v, any angina equivalent symptoms, etc. Tristin De Leon MD [address] [facility] [address], [place], [address], [facility] 09/29/2022 18:08:53 12/07/2022 text/html Pt comes in for f/u of ADD, HTN, Asthma (no flares), chronic insomnia, and hair loss (had covid twice). Pt feels well and has no c/o. Pt has no new sx and no increasing sx. Patient denies any jaw or neck discomfort, left arm pain/left arm discomfort, chest discomfort/pain, diaphoresis, breathing symptoms/chest tightness, indigestion sx, n/v, any angina equivalent symptoms, etc. Tristin De Leon MD [address] [facility] [address], [place], [address], [facility] 12/07/2022 18:00:20 04/06/2023 text/html Pt comes in for f/u of elevated liver enyzmes, rt flank pain, ADD (doing eloy well w/ Adderall; completing tasks, and doing thing), HTN, Asthma (no flares), and weight. Pt feels well and has no c/o. Pt has no new sx and no increasing sx. Patient denies any jaw or neck discomfort, left arm pain/left arm discomfort, chest discomfort/pain, diaphoresis, breathing symptoms/chest tightness, indigestion sx, n/v, any angina equivalent symptoms, etc. Tristin De Leon MD [address] [facility] [address], [place], [address], [facility] 04/06/2023 17:39:25 07/13/2023 text/html Pt comes in for Asthma w/ occasional dry cough, and f/u ADD. No palpitations, mood swings or any side effects. Adderall may not last as long (has to adjust timing of the BID dosing). Pt feels well and has no c/o. Pt has no new sx (except occasional dry cough) and no increasing sx. Patient denies any jaw or neck discomfort, left arm pain/left arm discomfort, chest discomfort/pain, diaphoresis, breathing symptoms/chest tightness, indigestion sx, n/v, any angina equivalent symptoms, etc. Tristin De Leon MD [address] [facility] [address], [place], [address], [facility] 07/13/2023 18:41:17 12/15/2023 text/html Pt comes in for f/u of ^LFTs, Asthma, ADD and weight monitoring. Pt feels well and has no c/o. Pt has no new sx and no increasing sx. Patient denies any jaw or neck discomfort, left arm pain/left arm discomfort, chest discomfort/pain, diaphoresis, breathing symptoms/chest tightness, indigestion sx, n/v, any angina equivalent symptoms, etc. Tristin De Leon MD [address] [facility] [address], [place], [address], [facility] 12/15/2023 13:55:11 OBGyn Episode No OBEpisode recorded.
--- OUTSIDE RECORDS SUMMARY | 2024-02-18 03:28 | XMS_ITS | Encounter Summary ---
Author Organization [facility] Address [address] [place] [address] Care Team Providers Care Precision Layout Worker Name Role Phone Tristin Ghotra MD Primary Care Provider [phone] Reason for Visit * Reason Onset Date Comments Test Results 10/15/2021 Encounter Details Date Type Department Care Team (Late st Contact Info) Description 10/15/2021 Telephone [facility] Pulmonary at [address] [place] [address] Josefa Salvdaor LPN Test Results Social History Tobacco Use Types Packs/Day Years Used Date Smoking Tobacco: Never Alcohol Use Standard Drinks/Week Comments Yes 0 (1 standard drink = 0.6 oz pur e alcohol) Comments Unknown Sex and Gender Information Value Date Recorded Sex Assigned at Not on file Legal Sex Female 3:22 AM [employer] Gender Identity Female 06/27/2022 9:35 PM CDT Sexual Orientation Not on file documented as of this encounter Miscellaneous Notes * Telephone Encounter - Josefa Salvador LPN - 10/20/2021 4:00 PM CDT Called and let the patient know her lung function test is consistent with asthma. Pt to continue the inhalers and Dr Baum will discuss with her further at her next appointment * Telephone Encounter - Josefa Salvador LPN - 10/15/2021 11:10 AM CDT Called pt and let her know her IgE is elevated which is marker of allergies. ??Will wait for full allergy panel and discuss results at next visit. ?? Pt verbalizes good understanding. documented in this encounter Plan of Treatment Not on file documented as of this encounter Visit Diagnoses Not on filedocumented in this encounter Care Teams Precision Layout Worker Relationship Specialty Start Date End Date Tristin Ghotra MD [address] [facility] [address] [place] [address] PCP - General 12/07/18 documented as of this encounter
--- OUTSIDE RECORDS SUMMARY | 2024-02-18 03:28 | XMS_ITS | Encounter Summary ---
Author Organization [facility] Healthcare Address [address] [place] [address] Care Team Providers Care Epic Willow Specialist Name Role Phone Tristin Ghotra MD Primary Care Provider [phone] Encounter Details Date Type Department Care Team (Late st Contact Info) Description 12/27/2018 2:45 PM OPERATIONS WELDER Hospital Encounter [facility] Ahsan Street MD [address] [facility] [address] [place] [address] Social History Tobacco Use Types Packs/Day Years Used Date Smoking Tobacco: Never Alcohol Use Standard Drinks/Week Comments Yes 0 (1 standard drink = 0.6 oz pur e alcohol) Comments Unknown Sex and Gender Information Value Date Recorded Sex Assigned at Not on file Legal Sex Female 3:22 AM OPERATIONS WELDER Gender Identity Female 06/27/2022 9:35 PM CDT Sexual Orientation Not on file documented as of this encounter Medications at Time of Discharge aspirin 81 mg tablet take 1 tablet by oral route every day 0 0 09/27/2013 cholestyramine (QUESTRAN) 4 gram packet TAKE 1 PACKET 3 TIMES DAILY in juice 03/23/2012 06/28/2022 clopidogrel (PLAVIX) 75 mg tablet take 1 tablet by oral route every day 60 6 10/11/2013 09/03/2020 metoprolol XL (TOPROL-XL) 50 mg extended release tablet TAKE ONE TABLET BY MOUTH ONE TIME DAILY 04/27/2015 06/28/2022 naltrexone (DEPADE) 50 mg tablet TAKE 1 TABLET BY MOUTH EVERY DAY NEEDED ITCHING 04/12/2012 06/28/2022 ramipril (ALTACE) 2.5 mg capsule take 1 capsule by oral route every day 30 0 09/27/2013 11/30/2021 ramipril (ALTACE) 5 mg capsule TAKE 1 CAPSULE BY MOUTH DAILY 90 capsule 1 10/30/2017 09/03/2020 ursodioL (EDGAR FORTE) 500 mg tablet daily 04/19/2012 06/28/2022 documented as of this encounter Plan of Treatment Not on file documented as of this encounter Procedures Procedure Name Priority Date/Time Associated Diagnosis Comments GENERAL RADIOLOGY REPORT 12/28/2018 12:00 AM OPERATIONS WELDER SCREENING MAMMOGRAM BILATERAL W NADIR 12/27/2018 2:46 PM OPERATIONS WELDER documented in this encounter Results * GENERAL RADIOLOGY REPORT (12/28/2018 12:00 AM OPERATIONS WELDER) Anatomical Region Laterality Modality Radiographic Nikkie ging Narrative 12/28/2018 12:00 AM OPERATIONS WELDER Ordered by an unspecified provider. us Historical Provider MD ALLEN XR PROCEDURES Final R esult * Screening Mammogram Bilateral W Nadir (12/27/2018 2:46 PM OPERATIONS WELDER) Anatomical Region Laterality Modality Breast Bilateral Mammography 12/27/2018 3:37 PM OPERATIONS WELDER Narrative 12/28/2018 10:58 AM OPERATIONS WELDER Patient Name: RUDI MCKEON V ?Ordering Dr: Ahsan Strete ?? D.O.B: 1975 ? Exam Date: 12/27/18 ?? 1446 ?? Age: 43 ?Sex: Female ? MR#: [id number] ?? Loc: ? RADIOLOGY REPORT ?? Order #[id number] ?? [facility] ? Breanna Bilat Screening 3D ? Signed ?- MG ?? BILATERAL DIGITAL SCREENING MAMMOGRAM 3D/2D WITH MEDIOLATERAL OBLIQUE ?? CRANIOCAUDAL: 12/27/2018 ?? The study was acquired using full field digital technology and interpreted from ?soft copy. ?2D digital mammographic views, as well as 3D digital tomosynthesis were ?? performed in the CC and MLO projections. ? CLINICAL: Baseline mammogram. Denies any problems today. No personal history of ?breast cancer. No family history of breast cancer. ? COMPARISONS: No prior exams were available for comparison. ? BREAST TISSUE: The tissue of both breasts is heterogeneously dense, which may ?? obscure small masses. ? FINDINGS: There are benign scattered calcifications in both breasts. ? No significant masses, calcifications, or other findings are seen in either ?? breast. ? IMPRESSION: BI-RAD 2 ??BENIGN ?? There is no mammographic evidence of malignancy. A 1 year screening mammogram ?? is recommended. ? The patient has been or will be contacted. ? We recommend annual screening mammography for women at average risk of breast ?? cancer beginning at age 40, based on guidelines of the [employer] ?? [employer] (ACR Practice Parameter for the Performance of Screening and ?? Diagnostic Mammography) and [employer] ?? Gynecologists. For women with an elevated risk of breast cancer, please refer ?? to the ACR Practice Parameter for specific screening recommendations. ? The patient will be entered into a reminder system with a target due date of 1 ?? year for her next screening exam. ? Electronically signed by: ?Sai Marcum M.D. ? ab/penrad:12/28/2018 10:58:37 ? Explosives Mixer Operator: Kisha DICKERSON (Vidhi)(Caro), [facility] ?? letter sent: Normal Exam ? Reading location: ?? BI-RADS: 2 Benign ? REPORT ELECTRONICALLY SIGNED IN OTHER VENDOR SYSTEM ?? Resulting Agency Comment O Procedure Note Sai Marcum MD - 12/28/2018 Patient Name: MELINDARUDI Dr: Ahsan Street D.O.B: 1975 Exam Date: 12/27/18 1446 Age: 43 Sex: Female MR#: [id number] Loc: RADIOLOGY REPORT Order #[id number] [facility] Breanna Bilat Screening 3D Signed - MG BILATERAL DIGITAL SCREENING MAMMOGRAM 3D/2D WITH MEDIOLATERAL OBLIQUE CRANIOCAUDAL: 12/27/2018 The study was acquired using full field digital technology andinterpreted from soft copy. 2D digital mammographic views, as well as 3D digital tomosynthesis were performed in the CC and MLO projections. CLINICAL: Baseline mammogram. Denies any problems today. No personalhistory of breast cancer. No family history of breast cancer. COMPARISONS: No prior exams were available for comparison. BREAST TISSUE: The tissue of both breasts is heterogeneously dense, whichmay obscure small masses. FINDINGS: There are benign scattered calcifications in both breasts. No significant masses, calcifications, or other findings are seen ineither breast. IMPRESSION: BI-RAD 2 BENIGN There is no mammographic evidence of malignancy. A 1 year screeningmammogram is recommended. The patient has been or will be contacted. We recommend annual screening mammography for women at average risk ofbreast cancer beginning at age 40, based on guidelines of the [employer] (ACR Practice Parameter for the Performance of Screening and Diagnostic Mammography) and [employer]. For women with an elevated risk of breast cancer, pleaserefer to the ACR Practice Parameter for specific screening recommendations. The patient will be entered into a reminder system with a target due dateof 1 year for her next screening exam. Electronically signed by: Sai lyons/trish:12/28/2018 10:58:37 Explosives Mixer Operator: Kisha Dinh)(Caro), [facility] letter sent: Normal Exam Reading location: BI-RADS: 2 Benign REPORT ELECTRONICALLY SIGNED IN OTHER VENDOR SYSTEM us Ahsan Street MD IMG MAMMO PROCEDURES Final R esult documented in this encounter Visit Diagnoses Not on filedocumented in this encounter Care Teams Epic Willow Specialist Relationship Specialty Start Date End Date Tristin Ghotra MD [address] [facility] [address] [place] [address] PCP - General 12/07/18 documented as of this encounter
--- OUTSIDE RECORDS SUMMARY | 2024-02-18 03:28 | XMS_ITS | Encounter Summary ---
Author Organization [facility] Address [address] [place] [address] Care Team Providers Care Oncology Specialist Name Role Phone Tristin Ghotra MD Primary Care Provider [phone] Reason for Visit * Reason Comments Follow-up Encounter Details Date Type Department Care Team (Late st Contact Info) Description 06/28/2022 9:15 AM CDT Office Visit [facility] Pulmonology [address] [facility] [address] [place] [address] Kate Carrasco MD [address] [facility] [address] [place] [address] Severe persistent asthma without complication (Primary Dx); Chronic rhinitis Social History Tobacco Use Types Packs/Day Years Used Date Smoking Tobacco: Never Alcohol Use Standard Drinks/Week Comments Yes 0 (1 standard drink = 0.6 oz pur e alcohol) Comments Unknown Sex and Gender Information Value Date Recorded Sex Assigned at Not on file 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 Gender Identity Female 06/27/2022 9:35 PM CDT Sexual Orientation Not on file documented as of this encounter Last Filed Vital Signs Vital Sign Reading Time Taken Comments Blood Pressure 126/74 06/28/2022 9:09 AM CDT Pulse 76 06/28/2022 9:09 AM CDT Temperature 36.8 ??C (98.2 ??F) 06/28/2022 9:09 AM CD T Respiratory Rate 18 06/28/2022 9:09 AM CDT Oxygen Saturation 98% 06/28/2022 9:09 AM CDT Inhaled Oxygen Concentration - - Weight 68.5 kg (151 lb) 06/28/2022 9:09 AM CDT Height 175.3 cm (5' 9 ) 06/28/2022 9:09 AM CDT Body Mass Index 22.3 06/28/2022 9:09 AM CDT documented in this encounter Ordered Prescriptions Prescription Sig Dispense Quantity Refills Last Filled Start Date End Date tiotropium bromide (SPIRIVA RESPIMAT) 2.5 mcg/actuation inhalerIndications: Severe persistent asthma without complication Inhale 2 puffs daily 4 g 2 06/28/2022 mometasone-formoter ol (Dulera) 100-5 mcg/actuation inhalerIndications: Severe persistent asthma without complication Inhale 2 puffs 2 (two) times a day Rinse mouth with water after use. Do not swallow. 1 each 2 06/28/2022 documented in this encounter Progress Notes * Kate Carrasco MD - 06/28/2022 9:15 AM CDT Images from the original note were not included. PULMONARY CLINIC NOTE Visit Date: 06/28/2022 INTERVAL HISTORY: Presents today for follow-up of Asthma Breathing ok. Not much wheezing or coughing but does have intermittent chest tightness. Using albuterol few timesper week. Wixela was not covered by insurance Uses zyrtec prn. Stopped montelukast due to tiredness Wixela not covered by insurance nor is advair. Gained weight with symbicort nor was it covered by insurance HPI: Patient is a 47 y.o. female w/ PMH of h/o coronary dissection s/p stenting in 2011, HTN who presented on 10/13/2021 for evaluation of dyspnea. Cough and dyspnea since early 2021. Has chronic rhinitis and post nasal drip, tried flonase which didn't help. Intermittent GERD. Did have childhood asthma. Exposure and Social History: Never smoker. Occasionally etoh. No drug use. 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 Has cat. No other obvious exposures. Review of Systems: OBJECTIVE: Physical Exam: Vitals: 06/28/22 0909 BP: 126/74 BP Location: Right arm Patient Position: Sitting Pulse: 76 Resp: 18 Temp: 36.8 ??C (98.2 ??F) SpO2: 98% Weight: 68.5 kg (151 lb) Height: 175.3 cm (5' 9 ) Data Review: Personally reviewed chest x-ray with patient: No large masses, effusions opacities. Mostly normal Pulmonary function testin10/15/2021 Moderate obstruction with very significant bronchodilator response. Mild restriction. Normal DLCO ASSESSMENT AND PLAN Asthma Continue albuterol. Not clear if she ever got spiriva but will reorder. Wixela and advair too expensive. Symbicort was also expensive and caused some weight gain. Unfortunately ICS/LABA will be needed for asthma control so will try dulera. If can't tolerate/access inhalers, May need biologic rhinitis Continue singulair and zyrtec. Kate Carrasco MD Pulmonary Medicine There may be syntax/grammatical errors in this note due to the use of voice recognition software. documented in this encounter Plan of Treatment Not on file documented as of this encounter Visit Diagnoses Diagnosis Severe persistent asthma without complication- Primary Chronic rhinitis documented in this encounter Discontinued Medications Medication Sig Discontinue Reason Start Date End Da te cholestyramine (QUESTRAN) 4 gram packet TAKE 1 PACKET 3 TIMES DAILY in juice Other 03/23/2012 06/28/2022 clobetasoL (CLOBEX) 0.05 % shampoo Apply topically as needed Other 06/28/2022 doxazosin (CARDURA) 1 mg tablet daily Other 06/28/2022 tiotropium bromide (SPIRIVA RESPIMAT) 2.5 mcg/actuation inhalerIndications:Mild persistent asthma without complication Inhale 2 puffs daily Other 03/01/20222022 ursodioL (EDGAR FORTE) 500 mg tablet daily Other 04/19/2012 06/28/2022 spironolactone (ALDACTONE) 100 mg tablet Take 100 mg by mouth daily Other 06/28/2022 sertraline (ZOLOFT) 100 mg tablet sertraline 100 mg tablet Other 06/28/2022 naltrexone (DEPADE) 50 mg tablet TAKE 1 TABLET BY MOUTH EVERY DAY NEEDED ITCHING Other 04/12/2012 06/28/[address] (PROTONIX) 40 mg EC tablet Take 40 mg by mouth daily Other 06/28/2022 metoprolol XL (TOPROL-XL) 50 mg extended release tablet TAKE ONE TABLET BY MOUTH ONE TIME DAILY Other 04/27/2015 06/28/2022 fluticasone propion-salmeteroL (WIXELA INHUB) 250-50 mcg/dose diskus inhalerIndications:Mild persistent asthma without complication Inhale 1 puff 2 (two) times a day Rinse mouth with water after use. Do not swallow. Cost of medication 03/01/2022 06/28/2022 documented as of this encounter Historical Medications * This list may reflect changes made after this encounter. dextroamphetamine -amphetamine (ADDERALL) 10 mg tablet dextroampheta mine-amphetam ine 10 mg tablet TAKE 1 TABLET BY MOUTH TWICE DAILY added in this encounter Care Teams Oncology Specialist Relationship Specialty Start Date End Date Tristin Ghotra MD [address] [place] [address] [address] [place] [address] PCP - General 12/07/18 documented as of this encounter
--- OUTSIDE RECORDS SUMMARY | 2024-02-18 03:28 | XMS_ITS | Encounter Summary ---
Author Organization [facility] Address [address] [facility] [address] [place] [address] Care Team Providers Care Event Specialist Name Role Phone Tristin Ghotra MD Primary Care Provider [phone] Reason for Referral * Diagnostic Imaging (Routine) - Closed Specialty Diagnoses / Procedures Referred By Contac t Referred To Contact Diagnoses Chronic rhinitis Mild persistent asthma without complication Dyspnea and respiratory abnormalities Procedures X-ray chest 2 views Kate Carrasco MD [facility] [address] [place] [address] Phone: tel: fax: [facility] [address] [place] [phone] Referral ID Status Reason Start Date Expiration Date Visits Re quested Visits Authorized [id number] Closed 10/13/2021 11/12/2022 1 1 * (Routine) - Closed Specialty Diagnoses / Procedures Referred By Contasvita t Referred To Contact Diagnoses Chronic rhinitis Mild persistent asthma without complication Dyspnea and respiratory abnormalities Procedures Pulmonary Function Test -[facility]; Full PFT in PFT Lab w/Stress Ox/6 Min Walk Test Kate Carrasco MD [address] [facility] [address] [place] [address] Phone: tel: fax: Referral ID Status Reason Start Date Expiration Date Visits Re quested Visits Authorized [id number] Closed 10/13/2021 11/12/2022 1 1 Reason for Visit * Reason Comments Shortness of Breath Cough Encounter Details Date Type Department Care Team (Late st Contact Info) Description 10/13/2021 11:15 AM CDT Office Visit [facility] Pulmonary at [address] [phone] Kate Carrasco MD [address] [facility] [address] [address] Chronic rhinitis (Primary Dx); Mild persistent asthma without complication; Dyspnea and respiratory abnormalities Social History Tobacco Use Types Packs/Day Years Used Date Smoking Tobacco: Never Alcohol Use Standard Drinks/Week Comments Yes 0 (1 standard drink = 0.6 oz pur e alcohol) Comments Unknown Sex and Gender Information Value Date Recorded Sex Assigned at Not on file 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 Gender Identity Female 06/27/2022 9:35 PM CDT Sexual Orientation Not on file documented as of this encounter Last Filed Vital Signs Vital Sign Reading Time Taken Comments Blood Pressure 120/60 10/13/2021 11:34 AM CDT Pulse 75 10/13/2021 11:34 AM CDT Temperature 36.9 ??C (98.5 ??F) 10/13/2021 11:34 AM C DT Respiratory Rate 16 10/13/2021 11:34 AM CDT Oxygen Saturation 99% 10/13/2021 11:34 AM CDT Inhaled Oxygen Concentration - - Weight 66.8 kg (147 lb 4.8 oz) 10/13/2021 11:34 AM CDT Height 175.3 cm (5' 9 ) 10/13/2021 11:34 AM CDT Body Mass Index 21.75 10/13/2021 11:34 AM CDT documented in this encounter Ordered Prescriptions Prescription Sig Dispense Quantity Refills Last Filled Start Date End Date budesonide-formote roL (Symbicort) 80-4.5 mcg/actuation inhalerIndications :Mild persistent asthma without complication Inhale 2 puffs 2 (two) times a day as needed (coughing, shortness of breath, wheezing) Rinse mouth with water after use. Do not swallow. 1 each 3 10/13/2021 2 documented in this encounter Progress Notes * Kate Carrasco MD - 10/13/2021 11:15 AM CDT Images from the original note were not included. PULMONARY CLINIC NOTE Visit Date: 10/13/2021 INTERVAL HISTORY: Presents today for follow-up of ??? new HPI: Patient is a 46 y.o. female w/ PMH of h/o coronary dissection s/p stenting in 2011, HTN who presented on 10/13/2021 for evaluation of dyspnea. Been having dyspnea since early 2021. Dyspnea at rest and with exertion. Sometimes wakes up at night coughing Was given albuterol few months ago which helped. No wheezing Has chronic rhinitis and post nasal drip, tried flonase which didn't help. Intermittent GERD. Did have childhood asthma. Exposure and Social History: Never smoker. Occasionally etoh. No drug use. 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 Has cat. No other obvious exposures. Review of Systems: Review of Systems Constitutional: Negative for chills and fever. HENT: Negative for nosebleeds. Eyes: Negative for pain. Respiratory: Positive for shortness of breath. Cardiovascular: Negative for chest pain. Gastrointestinal: Negative for blood in stool. Endocrine: Negative for polydipsia. Genitourinary: Negative for hematuria. Musculoskeletal: Negative for joint swelling. Skin: Negative for rash. Neurological: Negative for seizures. Psychiatric/Behavioral: Negative for behavioral problems. OBJECTIVE: Physical Exam: Vitals: 10/13/21 1134 BP: 120/60 BP Location: Left arm Patient Position: Sitting Pulse: 75 Resp: 16 Temp: 36.9 ??C (98.5 ??F) SpO2: 99% Weight: 66.8 kg (147 lb 4.8 oz) Height: 175.3 cm (5' 9 ) Physical Exam Constitutional: General: She is awake. Appearance: Normal appearance. HENT: Head: Normocephalic and atraumatic. Right Ear: External ear normal. Left Ear: External ear normal. Nose: Comments: External nose normal appearing Eyes: General: No scleral icterus. Conjunctiva/sclera: Conjunctivae normal. Cardiovascular: Rate and Rhythm: Normal rate and regular rhythm. Heart sounds: No friction rub. Pulmonary: Breath sounds: Normal breath sounds. No wheezing. Abdominal: Palpations: Abdomen is soft. Tenderness: There is no abdominal tenderness. Musculoskeletal: General: No signs of injury. Cervical back: No rigidity. Skin: General: Skin is dry. Coloration: Skin is not jaundiced. Neurological: General: No focal deficit present. Mental Status: She is alert. Mental status is at baseline. Psychiatric: Mood and Affect: Mood normal. Behavior: Behavior normal. Data Review: Pulmonary function testin07/07/2021 PCP office spirometry ?? FEV1/FVC ratio is 68%. FEV1 1.48 L/56%. ASSESSMENT AND PLAN 1. Dyspnea and probable asthma o Check PFT and CBC with diff o Continue albuterol. Add Symbicort o Check chest x-ray 2. Chronic rhinitis o Check IgE an allergy panel o Try Flonase in the past but could not tolerate. Consider singular or other in the future Kate Carrasco MD Pulmonary Medicine There may be syntax/grammatical errors in this note due to the use of voice recognition software. documented in this encounter Plan of Treatment Not on file documented as of this encounter Results * (ABNORMAL) Pulmonary Function Test - (10/15/2021 3:10 PM CDT) FVC POST 3.04 2.79 - 4.47 L 10/15/2021 2:59 PM CDT [facility] FVC PRE 2.71(L) 2.79 - 4.47 L 10/15/2021 2:59 PM CDT [facility] FEV1 POST 2.11(L) 2.22 - 3.57 L 10/15/2021 2:59 PM CDT [facility] FEV1 PRE 1.53(L) 2.22 - 3.57 L 10/15/2021 2:59 PM CDT [facility] [id number] 69.23(L) 70.39 - 89.85 % 10/15/2021 2:59 PM CDT [facility] [id number] 56.53(L) 70.39 - 89.85 % 10/15/2021 2:59 PM CDT [facility] JVC13-48% POST 1.35(L) 1.47 - 4.71 L/s 10/15/2021 2:59 PM CDT [facility] SUA13-46% PRE 0.55(L) 1.47 - 4.71 L/s 10/15/2021 2:59 PM CDT [facility] PEF POST 4.18(L) 5.70 - 8.66 L/s 10/15/2021 2:59 PM CDT [facility] PEF PRE 3.63(L) 5.70 - 8.66 L/s 10/15/2021 2:59 PM CDT [facility] FET 100% POST 9.26 sec 10/15/2021 2:59 PM CDT [facility] FET 100% PRE 14.84 sec 10/15/2021 2:59 PM CDT [facility] FIVC POST 2.91(L) 3.12 - 4.50 L 10/15/2021 2:59 PM CDT [facility] FIVC PRE 2.47(L) 3.12 - 4.50 L 10/15/2021 2:59 PM CDT [facility] FIF50% POST 3.62 L/s 10/15/2021 2:59 PM CDT [facility] FIF50% PRE 3.03 L/s 10/15/2021 2:59 PM CDT [facility] DLCOc SB 23.85 22.31 - 33.78 ml/(min*mm Hg) 10/15/2021 2:59 PM CDT [facility] VA 4.42(L) 5.63 - 5.63 L 10/15/2021 2:59 PM CDT [facility] DLCO/VA PRE 5.40 3.56 - 6.15 ml/(min*mm Hg*L) 10/15/2021 2:59 PM CDT [facility] IC SB 1.85(L) 2.73 - 2.73 L 10/15/2021 2:59 PM CDT [facility] VC PRE 3.02(L) 3.12 - 4.50 L 10/15/2021 2:59 PM CDT [facility] TLC PRE 4.20(L) 4.79 - 6.76 L 10/15/2021 2:59 PM CDT [facility] RV PRE 1.18(L) 1.32 - 2.47 L 10/15/2021 2:59 PM CDT [facility] FRC PL PRE 2.79 2.15 - 3.79 L 10/15/2021 2:59 PM CDT [facility] ERV PRE 1.60(H) 1.08 - 1.08 L 10/15/2021 2:59 PM CDT [facility] IC PRE 1.41(L) 2.73 - 2.73 L 10/15/2021 2:59 PM CDT [facility] RAW PRE 2.25(L) 3.06 - 3.06 cmH2O*s/L 10/15/2021 2:59 PM CDT [facility] BF RES 16.17 BPM 10/15/2021 2:59 PM T [facility] Anatomical Region Laterality Modality PFT 10/15/2021 2:11 PM CDT Impressions 10/19/2021 9:17 PM CDT 1. ??Moderate obstructive ventilatory limitation with concomitant mild restriction 2. ??There is a significant positive bronchodilator response 3. ??Diffusion capacity is normal 4. ??Ambulatory oximetry was performed. ??At this level of activity the patient did not require supplemental oxygen to maintain saturations greater than 88% Electronically signed by Rk Marion MD Pulmonary & Critical Care Narrative 10/19/2021 9:17 PM CDT PULMONARY FUNCTION TESTS Paola Mckeon 46 y.o. 10/19/2021 INTERPRETATION Please see technologist's comments mentioned in attached results report. SPIROMETRY: ??Pre bronchodilator FEV1 is 53 % predicted, FVC is 75 % predicted, FEV1/FVC is 0.57 Bronchodilator response: ??Yes Inspection of the patient's flow-volume loops shows: ??Scooping of the expiratory limb LUNG VOLUMES: Lung volumes by body plethysmography: ??TLC is 73 % predicted, RV is 63 % predicted DLCO: ??Unadjusted for hemoglobin and carboxyhemoglobin DLCO is 85 % predicted AIRWAY RESISTANCE: The airway resistance is normal us Kate Carrasco MD PFT ORDERABLES Final Result * X-ray chest 2 views (10/13/2021 2:19 PM CDT) Anatomical Region Laterality Modality Body, Chest N/A Digital Radiogra phy 10/16/2021 8:27 PM CDT Narrative 10/16/2021 8:28 PM CDT EXAM DESCRIPTION: ?? XR CHEST PA LATERAL 2 VIEWS REASON FOR STUDY: ?? dyspnea ?? SOB x 8 mos 2 stents 10 yrs ago Hx hypertension and asthma non smoker ?? TECHNIQUE: ?? Frontal ??and lateral radiographic views of the chest acquired. COMPARISON: ?? No prior. FINDINGS: LUNGS/PLEURA: ?? No focal consolidation or pneumothorax. No pleural effusion. HEART/MEDIASTINUM: ?? Heart size is normal. Normal mediastinal and hilar contours. HARDWARE/LINES/TUBES: ?? None. BONES: ?? No acute findings. OTHER: ?? Cholecystectomy clips. IMPRESSION: ?? No acute cardiopulmonary abnormality. THIS IS AN ELECTRONICALLY VERIFIED FINAL REPORT 10/16/2021 8:28 PM - Electronically signed by ??Edouard SOTO D: ??10/16/2021 8:28 PM T: Report ID: [id number] Reading Location: ??[id number] Procedure Note Edouard Parada MD - 10/16/2021 EXAM DESCRIPTION: XR CHEST PA LATERAL 2 VIEWS REASON FOR STUDY: dyspnea SOB x 8 mos 2 stents 10 yrs ago Hx hypertension and asthma non smoker TECHNIQUE: Frontal and lateral radiographic views of the chestacquired. COMPARISON: No prior. FINDINGS: LUNGS/PLEURA: No focal consolidation or pneumothorax. Nopleural effusion. HEART/MEDIASTINUM: Heart size is normal. Normal mediastinal and hilar contours. HARDWARE/LINES/TUBES: None. BONES: No acute findings. OTHER: Cholecystectomy clips. IMPRESSION: No acute cardiopulmonary abnormality. THIS IS AN ELECTRONICALLY VERIFIED FINAL REPORT 10/16/2021 8:28 PM - Electronically signed by Edouard SOTO T: Report ID: [id number] Reading Location: [id number] us Kate Carrasco MD IMG XR PROCEDURES Final Resul t * Allergen Birch common silver (tree) IgE (10/13/2021 2:13 PM CDT) Birch common silver IgE <0.10 0.00 - 0.34 kUnits/L [facility] Comment:Testing performed by : [facility], [place]., [address] Blood 10/13/2021 2:13 PM CDT 10/14/2021 1:11 PM CDT Kate Carrasco MD LAB BLOOD ORDERABLES Final Re sult Performing Organization Address City/[facility]/ZIP Co de Phone Number FRED [address] [place] [address] * Allergen Elm (tree) IgE (10/13/2021 2:13 PM CDT) Pathologist [facility] Elm IgE 0.10 0.00 - 0.34 kUnits/L [facility] Comment:Testing performed by : [facility], [place]., [address] Blood 10/13/2021 2:13 PM CDT 10/14/2021 1:11 PM CDT Kate Carrasco MD LAB BLOOD ORDERABLES Final Re sult FRED [address] [address] [facility] [place] [address] * Allergen Maple/Box elder (tree) IgE (10/13/2021 2:13 PM CDT) Maple/box elder IgE <0.10 0.00 - 0.34 kUnits/L [facility] Comment:Testing performed by : [facility], [place]., [address] Blood 10/13/2021 2:13 PM CDT 10/14/2021 1:11 PM CDT Kate Carrasco MD LAB BLOOD ORDERABLES Final Re sult Performing Organization Address [facility] [place] [address] [address] [facility] [place] [address] * Allergen Mountain juniper (tree) IgE (10/13/2021 2:13 PM CDT) Mountain juniper IgE 0.15 0.00 - 0.34 kUnits/L [facility] Comment:Testing performed by : [facility], [place]., [address] Blood 10/13/2021 2:13 PM CDT 10/14/2021 1:11 PM CDT Kate Carrasco MD LAB BLOOD ORDERABLES Final Re sult Performing Organization Address [facility] Co de Phone Number HUSAMKATHRYN [address] [address] [facility] [place] [address] * Allergen [place] (tree) IgE (10/13/2021 2:13 PM CDT) [place] IgE <0.10 0.00 - 0.34 kUnits/L [facility] Comment:Testing performed by : [facility], [place]., [address] Blood 10/13/2021 2:13 PM CDT 10/14/2021 1:11 PM CDT Kate Carrasco MD LAB BLOOD ORDERABLES Final Re sult Performing Organization Address City/[facility] Co de Phone Number HUSAMKATHRYN [address] [facility] [place] [address] * Allergen Commerce red (tree) IgE (10/13/2021 2:13 PM CDT) Commerce IgE <0.10 0.00 - 0.34 kUnits/L [facility] Comment:Testing performed by : [facility], [place]., [address] Blood 10/13/2021 2:13 PM CDT 10/14/2021 1:11 PM CDT Kate Carrasco MD LAB BLOOD ORDERABLES Final Re sult FRED [address] [facility] [place] [address] * Allergen [place] portuguese (tree) IgE (10/13/2021 2:13 PM CDT) [place] IgE 0.12 0.00 - 0.34 kUnits/L [facility] Comment:Testing performed by : [facility], [place]., [address] Blood 10/13/2021 2:13 PM CDT 10/14/2021 1:11 PM CDT Kate Carrasco MD LAB BLOOD ORDERABLES Final Re sult Performing Organization Address [facility] Co de Phone Number FRED [address] [facility] [facility] [place] [address] * (ABNORMAL) Allergen Arkadelphia (tree) IgE (10/13/2021 2:13 PM CDT) [place] (tree) IgE 0.75(H) 0.00 - 0.34 kUnits/L [facility] Comment:Testing performed by : [facility], [place]., [address] Blood 10/13/2021 2:13 PM CDT 10/14/2021 1:11 PM CDT Kate Carrasco MD LAB BLOOD ORDERABLES Final Re sult FRED [address] [facility] [place] [address] * Allergen Bermuda grass (grass) IgE (10/13/2021 2:13 PM CDT) Bermuda grass IgE <0.10 0.00 - 0.34 kUnits/L [facility] Comment:Testing performed by : [facility], [place]., [address] Blood 10/13/2021 2:13 PM CDT 10/14/2021 1:11 PM CDT Kate Carrasco MD LAB BLOOD ORDERABLES Final Re sult Performing Organization Address City/[facility]/ZIP Co de Phone Number FRED [address] [address] [place] [address] * Allergen Augustin grass (grass) IgE (10/13/2021 2:13 PM CDT) Augustin grass IgE <0.10 0.00 - 0.34 kUnits/L [facility] Comment:Testing performed by : [facility], [place]., [address] Blood 10/13/2021 2:13 PM CDT 10/14/2021 1:11 PM CDT Kate Carrasco MD LAB BLOOD ORDERABLES Final Re sult Performing Organization Address City/[facility] Co de [facility] Number [facility] [address] [address] [place] [address] * Allergen Suhail grass (grass) IgE (10/13/2021 2:13 PM CDT) Suhail grass IgE <0.10 0.00 - 0.34 kUnits/L [facility] Comment:Testing performed by : [facility], [place]., [address] Blood 10/13/2021 2:13 PM CDT 10/14/2021 1:11 PM CDT Kate Carrasco MD LAB BLOOD ORDERABLES Final Re sult HUSAMKATHRYN [address] [facility] [place] [address] * Allergen Plantain venezuelan (weed) IgE (10/13/2021 2:13 PM CDT) Pathologist [facility] Plantain venezuelan IgE <0.10 0.00 - 0.34 kUnits/L [facility] Comment:Testing performed by : [facility], [place]., [address] Blood 10/13/2021 2:13 PM CDT 10/14/2021 1:11 PM CDT Kate Carrasco MD LAB BLOOD ORDERABLES Final Re sult Performing Organization Address [facility] Co de Phone Number HUSAMKATHRYN [address] [address] [facility] [place] [address] * Allergen Rico's quarter (weed) IgE (10/13/2021 2:13 PM CDT) Pathologist [facility] Rico's quarters IgE <0.10 0.00 - 0.34 kUnits/L [facility] Comment:Testing performed by : [facility], [place]., [address] Blood 10/13/2021 2:13 PM CDT 10/14/2021 1:11 PM CDT Kate Carrasco MD LAB BLOOD ORDERABLES Final Re sult HUSAMKATHRYN [address] [facility] [place] [address] * Allergen Pigweed, rough (weed) IgE (10/13/2021 2:13 PM CDT) Pathologist [facility] Pigweed rough IgE <0.10 0.00 - 0.34 kUnits/L [facility] Comment:Testing performed by : [facility], [place]., [address] Blood 10/13/2021 2:13 PM CDT 10/14/2021 1:11 PM CDT Kate Carrasco MD LAB BLOOD ORDERABLES Final Re sult Performing Organization Address [facility] Co de Phone Number FRED [address] [facility] [place] [address] * (ABNORMAL) Allergen Ragweed short/common (weed) IgE (10/13/2021 2:13 PM CDT) Ragweed common IgE 0.42(H) 0.00 - 0.34 kUnits/L [facility] Comment:Testing performed by : [facility], [place]., [address] Blood 10/13/2021 2:13 PM CDT 10/14/2021 1:11 PM CDT Result [facility] Kate Carrasco MD LAB BLOOD ORDERABLES Final Re sult Performing Organization Address [facility] Co de Phone Number FRED [address] [facility] [facility] [place] [address] * (ABNORMAL) Allergen Alternaria tenuis (mold) IgE (10/13/2021 2:13 PM CDT) Alternaria tenius IgE 2.64(H) 0.00 - 0.34 kUnits/L [facility] Comment:Testing performed by : [facility], [place]., [address] Blood 10/13/2021 2:13 PM CDT 10/14/2021 1:11 PM CDT Kate Carrasco MD LAB BLOOD ORDERABLES Final Re sult Performing Organization Address [facility] Co de Phone Number FRED [address] [facility] [place] [address] * (ABNORMAL) Allergen Aspergillus fumigatus (mold) IgE (10/13/2021 2:13 PM CDT) Aspergillus fumigatus IgE 0.48(H) 0.00 - 0.34 kUnits/L [facility] Comment:Testing performed by : [facility], [place]., [address] Blood 10/13/2021 2:13 PM CDT 10/14/2021 1:11 PM CDT Kate Carrasco MD LAB BLOOD ORDERABLES Final Re sult Performing Organization Address City/[facility]/ZIP Co de Phone Number [facility] [address] [address] [facility] [place] [address] * (ABNORMAL) Allergen Cladosporium herbarum (mold) IgE (10/13/2021 2:13 PM CDT) Cladosporium herbarum IgE 0.38(H) 0.00 - 0.34 kUnits/L [facility] Comment:Testing performed by : [facility], [place]., [address] Blood 10/13/2021 2:13 PM CDT 10/14/2021 1:11 PM CDT Kate Carrasco MD LAB BLOOD ORDERABLES Final Re sult [facility] [address] [address] [facility] [place] [address] * (ABNORMAL) Allergen Penicillium chrysogenum (mold) IgE (10/13/2021 2:13 PM CDT) Penicillium chrysogenum IgE 0.40(H) 0.00 - 0.34 kUnits/L [facility] Comment:Testing performed by : [facility], [place]., [address] Blood 10/13/2021 2:13 PM CDT 10/14/2021 1:11 PM CDT Kate Carrasco MD LAB BLOOD ORDERABLES Final Re sult Performing Organization Address [facility] [place] [address] [facility] [place] [address] * (ABNORMAL) Allergen Cat dander standard (animal) IgE (10/13/2021 2:13 PM CDT) Cat dander IgE >100.00(H) 0.00 - 0.34 kUnits/L [facility] Comment:Testing performed by : [place]., [address] Blood 10/13/2021 2:13 PM CDT 10/14/2021 1:11 PM CDT Kate Carrasco MD LAB BLOOD ORDERABLES Final Re sult Performing Organization Address [facility] Co de Phone Number HUSAMAKTHRYN [address] [facility] [place] [address] * Allergen Cockroach portuguese (insect) IgE (10/13/2021 2:13 PM CDT) Cockroach IgE <0.10 0.00 - 0.34 kUnits/L [facility] Comment:Testing performed by : [place]., [address] Blood 10/13/2021 2:13 PM CDT 10/14/2021 1:11 PM CDT Kate Carrasco MD LAB BLOOD ORDERABLES Final Re sult Performing Organization Address [facility] Co de Phone Number FRED [phone] [address] [facility] [place] [address] * Allergen Dermatophagoides farniae (insect) IgE (10/13/2021 2:13 PM CDT) Dermatophyton farinae IgE 0.11 0.00 - 0.34 kUnits/L [facility] Comment:Testing performed by : [place]., [address] Blood 10/13/2021 2:13 PM CDT 10/14/2021 1:11 PM CDT Kate Carrasco MD LAB BLOOD ORDERABLES Final Re sult Performing Organization Address [facility] Co de Phone Number [facility] [address] [address] [place] [address] * Allergen Dermatophagoides pteronyssinus (insect) IgE (10/13/2021 2:13 PM CDT) Dermatophyton pteronyssinus IgE 0.12 0.00 - 0.34 kUnits/L [facility] Comment:Testing performed by : [facility], [place]., [address] Blood 10/13/2021 2:13 PM CDT 10/14/2021 1:11 PM CDT Result [facility] Kate Carrasco MD LAB BLOOD ORDERABLES Final Re sult Performing Organization Address [facility] Co de Phone Number [facility] [address] [address] [place] [address] * (ABNORMAL) Allergen Dog dander (animal) IgE (10/13/2021 2:13 PM CDT) Dog dander IgE 7.20(H) 0.00 - 0.34 kUnits/L [facility] Comment:Testing performed by : [place]., [address] Blood 10/13/2021 2:13 PM CDT 10/14/2021 1:11 PM CDT Kate Carrasco MD LAB BLOOD ORDERABLES Final Re sult Performing Organization Address [facility] Co de Phone Number FRED [phone] [address] [facility] [place] [address] * (ABNORMAL) Allergen Mouse urine proteins (animal) IgE (10/13/2021 2:13 PM CDT) Mouse urine proteins IgE 1.22(H) 0.00 - 0.34 kUnits/L FRED Comment:Testing performed by : [facility], [place]., [address] Blood 10/13/2021 2:13 PM CDT 10/14/2021 1:11 PM CDT Kate Carrasco MD LAB BLOOD ORDERABLES Final Re sult Performing Organization Address [facility] Co de Phone Number FRED [phone] [address] [place] [address] * (ABNORMAL) Alleren Rat urine proteins (animal) IgE (10/13/2021 2:13 PM CDT) Rat urine proteins IgE 1.79(H) 0.00 - 0.34 kUnits/L FRED Comment:Testing performed by : [facility], [place]., [address] Blood 10/13/2021 2:13 PM CDT 10/14/2021 1:11 PM CDT Kate Carrasco MD LAB BLOOD ORDERABLES Final Re sult Performing Organization Address City/[facility]/ZIP Co de Phone Number FRED [address] [address] [facility] [place] [address] * (ABNORMAL) IgE (10/13/2021 2:13 PM CDT) IgE 387.0(H) 1.0 - 100.0 IUnits/mL FRED Comment:Testing performed by : [facility], [address] [place]., [address] Blood 10/13/2021 2:13 PM CDT 10/14/2021 1:01 PM CDT Kate Carrasco MD LAB [place]LOOD [place] [address] [place] [address] * (ABNORMAL) CBC with auto differential (10/13/2021 2:13 PM CDT) WBC 5.7 3.8 - 9.9 K/cumm [facility] Hgb 14.0 11.9 - 15.5 g/dL [facility] Hct 41.7 35.6 - 45.5 % [facility] Plt 260 150 - 400 K/cumm [facility] MPV 11.2 9.1 - 12.3 fL [facility] RBC 4.30 3.90 - 5.20 M/cumm [facility] MCV 97.0(H) 81.3 - 96.4 fL [facility] MCH 32.6 27.1 - 33.3 pg [facility] MCHC 33.6 32.3 - 35.7 g/dL [facility] RDW CV 12.9 11.1 - 14.9 % [facility] RDW SD 46.1 35.7 - 48.1 fL [facility] NRBC abs 0.00 0.00 - 0.01 K/cumm [facility] Blood 10/13/2021 2:13 PM CDT 10/13/2021 5:33 PM CDT Kate Carrasco MD LAB [place]LOOD [place] [address] [place] [address] documented in this encounter Visit Diagnoses Diagnosis Chronic rhinitis- Primary Mild persistent asthma without complication Dyspnea and respiratory abnormalities Chronic rhinitis Mild persistent asthma without complication Dyspnea and respiratory abnormalities Chronic rhinitis Mild persistent asthma without complication Dyspnea and respiratory abnormalities documented in this encounter Historical Medications * This list may reflect changes made after this encounter. albuterol HFA (PROVENTIL HFA,VENTOLIN HFA,PROAIR HFA) 90 mcg/actuation inhaler albuterol sulfate HFA 90 mcg/actuation aerosol inhaler amLODIPine (NORVASC) 5 mg tablet amlodipine 5 mg tablet TAKE 1 TABLET BY MOUTH EVERY DAY added in this encounter Care Teams Event Specialist Relationship Specialty Start Date End Date Tristin Ghotra MD [address] [place] [address] PCP - General 12/07/18 documented as of this encounter
--- OUTSIDE RECORDS SUMMARY | 2024-02-18 03:28 | XMS_ITS | Encounter Summary ---
Author Organization [facility] Healthcare Address [address] [place] [address] Care Team Providers Care Mobile Sales Expert Name Role Phone Tristin Ghotra MD Primary Care Provider [phone] Encounter Details Date Type Department Care Team (Late st Contact Info) Description 07/17/2019 9:08 AM CDT Hospital Encounter [facility] Edgar Hager MD [address] [place] [address] Social History Tobacco Use Types Packs/Day Years Used Date Smoking Tobacco: Never Alcohol Use Standard Drinks/Week Comments Yes 0 (1 standard drink = 0.6 oz pur e alcohol) Comments Unknown Sex and Gender Information Value Date Recorded Sex Assigned at Not on file 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 D.O.B: 1975 ? Exam Date: 07/17/19 ?? 09 ?? Age: 44 ?Sex: Female ? MR#: [id number] ?? Loc: ? RADIOLOGY REPORT ?? Order #[id number] ?? Magnetic Resonance Imaging ? MRI Abdomen ? Signed ? EXAM DESCRIPTION: ?? MRI Abdomen ? REASON FOR STUDY: ?? ELEVATED LFTS FOR 10 YEARS. ACID REFLUX FOR 4 MONTHS ? TECHNIQUE: ??MRI of the abdomen performed without intravenous contrast ?? according to the ??MRCP protocol. All images stored on PACS. ? COMPARISON: ?? MRI abdomen 10/30/2013 ? FINDINGS: ? LOWER CHEST: ??No effusion. ? LIVER: ??Normal size. ??No mass. ? GALLBLADDER: ??Absent. ? BILE DUCTS: ??The common bile duct measures 7 mm maximum diameter, similar to ?? previous CT. ??No filling defect or stricture. ? SPLEEN: ??Normal size. ??5 mm T2 hyperintense lesion, similar to prior. ? PANCREAS: ??No masses. No adjacent inflammation or peripancreatic fluid ?? collections. Pancreatic duct not dilated. ? ADRENALS: ??Normal. ? KIDNEYS/URINARY TRACT: ??No hydronephrosis. ??Stable 4 mm T2 hyperintense left ?? renal lesion. ? GI: ??No visualized abnormality. ? PERITONEUM: ??No ascites. ? RETROPERITONEUM: ??No mass or adenopathy. ? VASCULATURE: ??No abdominal aortic aneurysm. ? MUSCULOSKELETAL: ??No acute findings. ? OTHER: ??No other abnormality. ? IMPRESSION: ?? No acute findings. ??No biliary ductal dilatation. Stable small ?? splenic and left renal lesions which should be benign. ? THIS IS AN ELECTRONICALLY VERIFIED FINAL REPORT ?? 07/17/2019 10:09 AM - Electronically signed by Yash Gonzalez M.D. ?? Yash Gonzalez M.D. ? JR: JR ?? D: ??07/17/2019 10:07 AM ?? T: ??07/17/2019 10:09 AM ? Report ID: [id number] ?? Reading Location: ??[id number] ? REPORT ELECTRONICALLY SIGNED IN OTHER VENDOR SYSTEM ?? Resulting Agency Comment O Procedure Note Yash Gonzalez MD - 07/17/2019 Patient Name: MELINDAPAOLAKassandra Galvez Dr: Edgar Hager MD D.O.B: 1975 Exam Date: 07/17/19 0949 Age: 44 Sex: Female MR#: [id number] Loc: RADIOLOGY REPORT Order #[id number] Magnetic Resonance Imaging MRI Abdomen Signed EXAM DESCRIPTION: MRI Abdomen REASON FOR STUDY: ELEVATED LFTS FOR 10 YEARS. ACID REFLUX FOR 4 MONTHS TECHNIQUE: MRI of the abdomen performed without intravenous contrast according to the MRCP protocol. All images stored on PACS. COMPARISON: MRI abdomen 10/30/2013 FINDINGS: LOWER CHEST: No effusion. LIVER: Normal size. No mass. GALLBLADDER: Absent. BILE DUCTS: The common bile duct measures 7 mm maximum diameter, similarto previous CT. No filling defect or stricture. SPLEEN: Normal size. 5 mm T2 hyperintense lesion, similar to prior. PANCREAS: No masses. No adjacent inflammation or peripancreatic fluid collections. Pancreatic duct not dilated. ADRENALS: Normal. KIDNEYS/URINARY TRACT: No hydronephrosis. Stable 4 mm T2 hyperintenseleft renal lesion. GI: No visualized abnormality. PERITONEUM: No ascites. RETROPERITONEUM: No mass or adenopathy. VASCULATURE: No abdominal aortic aneurysm. MUSCULOSKELETAL: No acute findings. OTHER: No other abnormality. IMPRESSION: No acute findings. No biliary ductal dilatation. Stablesmall splenic and left renal lesions which should be benign. THIS IS AN ELECTRONICALLY VERIFIED FINAL REPORT 07/17/2019 10:09 AM - Electronically signed by Yash Gonzalez M.D. JR: Report ID: [id number] Reading Location: [id number] REPORT ELECTRONICALLY SIGNED IN OTHER VENDOR SYSTEM Edgar Hager MD IM MRI PROCEDURES Final Result documented in this encounter Visit Diagnoses Not on filedocumented in this encounter Care Teams Mobile Sales Expert Relationship Specialty Start Date End Date Tristin Ghotra MD [address] [facility] [address] [place] [address] PCP - General 12/07/18 documented as of this encounter
--- OUTSIDE RECORDS SUMMARY | 2024-02-18 03:28 | XMS_ITS | Encounter Summary ---
Author Organization [facility] Address [address] [place] [address] Phone Care Team Providers Care Desktop Support Technician Name Role Phone Tristin Ghotra MD Primary Care Provider Reason for Visit * Reason Onset Date Comments Test Results 09/14/2020 Encounter Details Date Type Department Care Team (Late st Contact Info) Description 09/14/2020 Telephone [facility] Otolaryngology [address] [place] [phone] Jaclyn Briones Test Results Social History Tobacco Use Types Packs/Day Years Used Date Smoking Tobacco: Never Alcohol Use Standard Drinks/Week Comments Yes 0 (1 standard drink = 0.6 oz pur e alcohol) Comments Unknown Sex and Gender Information Value Date Recorded Sex Assigned at Not on file 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 * Telephone Encounter - Jaclyn Briones - 09/14/2020 8:30 AM CDT ----- Message from Salinas Pandya II, MD sent at 09/12/2020 12:08 PM CDT ----- Regarding: Test Results Let her know that I did review the blood tests ordered by her primary care physician which did not show any significant abnormalities. Because of that and the findings of her CT scan which did not show any masses in the neck, I have not recommended any new treatment for her. She can follow up with us as needed. documented in this encounter Plan of Treatment Not on file documented as of this encounter Visit Diagnoses Not on filedocumented in this encounter Care Teams Desktop Support Technician Relationship Specialty Start Date End Date Tristin Ghotra MD [address] [address] PCP - General 12/07/18 documented as of this encounter
--- OUTSIDE RECORDS SUMMARY | 2024-02-18 03:28 | XMS_ITS | Encounter Summary ---
Author Organization [facility] Address [address] [address] Care Team Providers Care Job Coach Name Role Phone Tristin Ghotra MD Primary Care Provider [phone] Reason for Visit * Diagnostic Imaging (Routine) - Closed Specialty Diagnoses / Procedures Referred By Contac t Referred To Contact Diagnoses Chronic rhinitis Mild persistent asthma without complication Dyspnea and respiratory abnormalities Procedures X-ray chest 2 views Kate Carrasco MD [address] [address] Phone: tel: fax: [address] [phone] Referral ID Status Reason Start Date Expiration Date Visits Re quested Visits Authorized [id number] Closed 10/13/2021 11/12/2022 1 1 Encounter Details Date Type Department Care Team (Latest Contact Info) Description 10/13/2021 2:15 PM CDT Ancillary Procedure [facility] Imaging at [address] [phone] Chronic rhinitis; Mild persistent asthma without complication; Dyspnea and respiratory abnormalities Social History Tobacco Use Types Packs/Day Years Used Date Smoking Tobacco: Never Alcohol Use Standard Drinks/Week Comments Yes 0 (1 standard drink = 0.6 oz pur e alcohol) Comments Unknown Sex and Gender Information Value Date Recorded Sex Assigned at Not on file 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 MJ D: ??10/16/2021 8:28 PM T: Report ID: [id number] Reading Location: ??[id number] Procedure Note Edouard Parada MD - 10/16/2021 [...] 8:28 PM - Electronically signed by Edouard Parada M.D. MJ T: Report ID: [id number] Reading Location: [id number] us Kate Carrasco MD IMG XR PROCEDURES Final Resul t documented in this encounter Visit Diagnoses Diagnosis Chronic rhinitis Mild persistent asthma without complication Dyspnea and respiratory abnormalities documented in this encounter Care Teams Job Coach Relationship Specialty Start Date End Date Tristin Ghotra MD [address] [facility] [address] [place] [address] PCP - General 12/07/18 documented as of this encounter
--- OUTSIDE RECORDS SUMMARY | 2024-02-18 03:28 | XMS_ITS | Clinical Summary ---
Author Organization [facility] Address [address] [place] [address] Care Team Providers Care Manual Arts Teacher Name Role Phone Tristin Ghotra MD Primary Care Provider [phone] Allergies No known active allergies Medications aspirin 81 mg tablet take 1 tablet by oral route every day 0 0 4 Active amLODIPine (NORVASC) 5 mg tablet amlodipine 5 mg tablet TAKE 1 TABLET BY MOUTH EVERY DAY Active albuterol HFA (PROVENTIL HFA,VENTOLIN HFA,PROAIR HFA) 90 mcg/actuation inhaler albuterol sulfate HFA 90 mcg/actuation aerosol inhaler Active inhalational spacing device (OptiChamber Tasha [facility]) spacer 1 Device daily 1 each 2 Active montelukast (SINGULAIR) 10 mg tabletIndications :Non-seasonal allergic rhinitis due to other allergic trigger Take 1 tablet (10 mg total) by mouth nightly 90 tablet 1 2 Active losartan (COZAAR) 25 mg tablet losartan 25 mg tablet TAKE 1 TABLET BY MOUTH EVERY DAY Active cetirizine (ZyrTEC) 10 mg tabletIndications :Non-seasonal allergic rhinitis due to other allergic trigger Take 1 tablet (10 mg total) by mouth daily 90 tablet 1 3 Active dextroamphetamine -amphetamine (ADDERALL) 10 mg tablet dextroamphetam ine-amphetamin e 10 mg tablet TAKE 1 TABLET BY MOUTH TWICE DAILY Active mometasone-formot uvaldo (Dulera) 100-5 mcg/actuation inhalerIndication s:Severe persistent asthma without complication Inhale 2 puffs 2 (two) times a day Rinse mouth with water after use. Do not swallow. 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 Chronic coronary artery disease 05/11/2015 Hypertension 04/27/2015 Rash 01/18/2012 Abnormal liver function tests 01/10/2012 Itch 12/21/2011 Chronic rhinitis Dyspnea and respiratory abnormalities Mild persistent asthma without complication Encounters Date Type Department Care Team Description 12/19/2023 Telephone [facility] Specialty Services [address] [place] [phone] Miscellaneous, Not In File from Last 3 Months Surgical History Surgery Date Site/Laterality Comments APPENDECTOMY Appendectomy CHOLECYSTECTOMY Cholecystectomy Medical History Medical History Date Comments Hx Other Medical biliary obstruc tion with multiple stents and remov; Comments: JFB 09/25/2013 - Allergic rhinitis Hypertension Fatigue Shortness of breath Family History Medical History Relation Name Comments Cancer Father Cancer Mother Relation Name Status Comments Father Mother Social History Tobacco Use Types Packs/Day Years Used Date Smoking Tobacco: Never Alcohol Use Standard Drinks/Week Comments Yes 0 (1 standard drink = 0.6 oz pur e alcohol) Comments Unknown Sex and Gender Information Value Date Recorded Sex Assigned at Not on file 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 Gender Identity Female 06/27/2022 9:35 PM CDT Sexual Orientation Not on file Obstetrics History Last Filed Vital Signs Vital Sign Reading [...] Mass Index 22.3 06/28/2022 9:09 AM CDT Plan of Treatment Health Maintenance Due Date Last Done Comments Cervical Cancer Screening 1975 Colon Cancer Screening-Colonoscopy 1975 Depression Screening 1975 Hepatitis C Screening 1975 Pneumococcal vaccine <65 (1 of 2 - PCV) 02/03/1982 DTaP/Tdap/Td Vaccine (1 - Tdap) 02/03/1987 Hepatitis B Screening 02/03/1994 Regular Well Visit/Exam 18-64 02/03/1994 Breast Cancer Screening-Mammogram 12/28/2019 019 Covid-19 Vaccine ( season) 2023, 06/16/2020 Influenza Vaccine (#1) 2023 Procedures Procedure Name Priority Date/Time Associated Diagnosis Comments SCREENING MAMMOGRAM BILATERAL W NADIR 12/27/2018 2:46 PM MEDICAL BILLING ASSISTANT from Last 3 Months or Most Recently Relevant to Health Maintenance Results * Screening Mammogram Bilateral W Nadir (12/27/2018 2:46 PM MEDICAL BILLING ASSISTANT) Anatomical Region Laterality Modality Breast Bilateral Mammography 12/27/2018 3:37 PM MEDICAL BILLING ASSISTANT Narrative 12/28/2018 10:58 AM MEDICAL BILLING ASSISTANT Patient Name: RUDI MCKEON V ?Ordering Dr: Ahsan Street ?? D.O.B: 1975 ? Exam Date: 12/27/18 ?? 1446 ?? Age: 43 ?Sex: Female ? MR#: [id number] ?? Loc: ? RADIOLOGY REPORT ?? Order #[id number] ?? [facility] ? Breanna Bilat [...] age 40, based on guidelines of the [place] [employer] ?? Radiology (ACR Practice Parameter for the Performance of Screening and ?? Diagnostic Mammography) and [place] [employer] of Obstetricians and ?? Gynecologists. For women with an elevated risk of breast cancer, please refer ?? to the ACR Practice Parameter for specific screening recommendations. ? The patient will be entered into a reminder system with a target due date of 1 ?? year for her next screening exam. ? Electronically signed by: ?Sai Marcum M.D. ? ab/penrad:12/28/2018 10:58:37 ? Bid Writer: Kisha Dinh)(Caro) [facility] ?? letter sent: Normal Exam ? Reading location: ?? BI-RADS: 2 Benign ? REPORT ELECTRONICALLY SIGNED IN OTHER VENDOR SYSTEM ?? Resulting Agency Comment O Procedure Note Sai Marcum MD - 12/28/2018 Patient Name: RUDI MCKEON Leonor Dr: Ahsan Street D.O.B: 1975 Exam Date: 12/27/18 144 Age: 43 Sex: Female MR#: [id number] Loc: RADIOLOGY REPORT Order #[id number] [facility] Breanna Bilat Screening 3D Signed - MG [...] age 41, based on guidelines of the [place] [employer] (ACR Practice Parameter for the Performance of Screening and Diagnostic Mammography) and [place] [employer] Obstetricians and Gynecologists. For women with an elevated risk of breast cancer, pleaserefer to the ACR Practice Parameter for specific screening recommendations. The patient will be entered into a reminder system with a target due dateof 1 year for her next screening exam. Electronically signed by: Sai lyons/trish:12/28/2018 10:58:37 Bid Writer: Kisha DICKERSON (Vidhi)(M), [facility] letter sent: Normal Exam Reading location: BI-RADS: 2 Benign REPORT ELECTRONICALLY SIGNED IN OTHER VENDOR SYSTEM Ahsan Street MD IMG MAMMO PROCEDURES Final R esult from Last 3 Months or Most Recently Relevant to Health Maintenance Insurance [employer] OPEN ACCESS [employer] OPEN ACCESS [facility] Care Teams Manual Arts Teacher Relationship Specialty Start Date End Date Tristin Ghotra MD [address] [facility] [address] [place] [address] PCP - General 12/07/18
--- OUTSIDE RECORDS SUMMARY | 2024-02-18 03:28 | XMS_ITS | Encounter Summary ---
Author Organization [facility] Healthcare Address [address] [place] [address] Care Team Providers Care Data Scientist Name Role Phone Tristin Ghotra MD Primary Care Provider [phone] Reason for Referral * (Routine) - Closed Specialty Diagnoses / Procedures Referred By George cr Referred To Contact Diagnoses Chronic rhinitis Mild persistent asthma without complication Dyspnea and respiratory abnormalities Procedures Pulmonary Function Test -[facility]; Full PFT in PFT Lab w/Stress Ox/6 Min Walk Test Kate Carrasco MD [address] [place] [address] [place] [address] Phone: tel: fax: Referral ID Status Reason Start Date Expiration Date Visits Re quested Visits Authorized [id number] Closed 10/13/2021 11/12/2022 1 1 Reason for Visit * (Routine) - Closed Specialty Diagnoses / Procedures Referred By Goerge cr Referred To Contact Diagnoses Chronic rhinitis Mild persistent asthma without complication Dyspnea and respiratory abnormalities Procedures Pulmonary Function Test -[facility]; Full PFT in PFT Lab w/Stress Ox/6 Min Walk Test Kate Carrasco MD [address] [place] [address] [place] [address] Phone: tel: fax: Referral ID Status Reason Start Date Expiration Date Visits Re quested Visits Authorized [id number] Closed 10/13/2021 11/12/2022 1 1 Encounter Details Date Type Department Care Team (Latest Contact Info) Description 10/15/2021 1:56 PM CDT - 10/15/2021 11:59 PM CDT Hospital Encounter [facility] Respiratory Therapy [address] [place] [address] [id number] Chronic rhinitis; Mild persistent asthma without complication; Dyspnea and respiratory abnormalities Discharge Disposition: Discharge to home or self care Social History Tobacco Use Types Packs/Day Years Used Date Smoking Tobacco: Never Alcohol Use Standard Drinks/Week Comments Yes 0 (1 standard drink = 0.6 oz pur e alcohol) Comments Unknown Sex and Gender Information Value Date Recorded Sex Assigned at Not on file 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 Gender Identity Female 06/27/2022 9:35 PM CDT Sexual Orientation Not on file documented as of this encounter Medications at Time of Discharge albuterol HFA (PROVENTIL HFA,VENTOLIN HFA,PROAIR HFA) 90 mcg/actuation inhaler albuterol sulfate HFA 90 mcg/actuation aerosol inhaler amLODIPine (NORVASC) 5 mg tablet amlodipine 5 mg tablet TAKE 1 TABLET BY MOUTH EVERY DAY aspirin 81 mg tablet take 1 tablet by oral route every day 0 0 09/27/2013 inhalational spacing device (Antonia Cordova [facility]) spacer 1 Device daily 1 each 10/14/2021 budesonide-formote roL (Symbicort) 80-4.5 mcg/actuation inhalerIndications :Mild persistent asthma without complication Inhale 2 puffs 2 (two) times a day as needed (coughing, shortness of breath, wheezing) Rinse mouth with water after use. Do not swallow. 1 each 3 10/13/2021 2 cholestyramine (QUESTRAN) 4 gram packet TAKE 1 PACKET 3 TIMES DAILY in juice 03/23/2012 3 metoprolol XL (TOPROL-XL) 50 mg extended release tablet TAKE ONE TABLET BY MOUTH ONE TIME DAILY 04/27/2015 3 naltrexone (DEPADE) 50 mg tablet TAKE 1 TABLET BY MOUTH EVERY DAY NEEDED ITCHING 04/12/2012 3 ramipril (ALTACE) 2.5 mg capsule take 1 capsule by oral route every day 30 0 09/27/2013 2 ursodioL (EDGAR FORTE) 500 mg tablet daily 04/19/2012 3 documented as of this encounter Discharge Disposition Disposition Code Departure Means Destination Discharge to home or self care documented in this encounter Progress Notes * Kacey Guerrero CRTT - 10/15/2021 3:13 PM CDT 10/15/21 1440 Resting Information Resting HR. 66 bpm Resting SPO2 96 % Oxygen Setting 21% Ambulation Trials to Assess Desaturation to 88% Activity 1: Ambulated (feet) 1120 feet Post Ambulation Assessment HR Post Assessment 84 bpm RR Post Assessment 18 breaths/m Post Assessment Recommendation NO O2 WAS REQUIRED (LOWEST O2 SAT WAS 96%) $ Home O2 Assessment Yes DX=ASTHMA Kacey Guerrero CRTT documented in this encounter Plan of Treatment Not on file documented as of this encounter Procedures Procedure Name Priority Date/Time Associated Diagnosis Comments PULMONARY FUNCTION TEST (PFT) Routine 10/15/2021 3:10 PM CDT Chronic rhinitis Mild persistent asthma without complication Dyspnea and respiratory abnormalities documented in this encounter Results * (ABNORMAL) Pulmonary Function Test - (10/15/2021 3:10 PM CDT) Pathologist [facility] FVC POST 3.04 2.79 - 4.47 L 10/15/2021 2:59 PM CDT [facility] FVC PRE 2.71(L) 2.79 - 4.47 L 10/15/2021 2:59 PM CDT [facility] FEV1 POST 2.11(L) 2.22 - 3.57 L 10/15/2021 2:59 PM CDT [facility] FEV1 PRE 1.53(L) 2.22 - 3.57 L 10/15/2021 2:59 PM CDT [facility] [id number] 69.23(L) 70.39 - 89.85 % 10/15/2021 2:59 PM CDT [facility] [id number] 56.53(L) 70.39 - 89.85 % 10/15/2021 2:59 PM CDT [facility] STU51-16% POST 1.35(L) 1.47 - 4.71 L/s 10/15/2021 2:59 PM CDT [facility] KLD64-54% PRE 0.55(L) 1.47 - 4.71 L/s 10/15/2021 2:59 PM CDT [facility] PEF POST 4.18(L) 5.70 - 8.66 L/s 10/15/2021 2:59 PM CDT [facility] PEF PRE 3.63(L) 5.70 - 8.66 L/s 10/15/2021 2:59 PM CDT [facility] FET 100% POST 9.26 sec 10/15/2021 2:59 PM CDT [facility] FET 100% PRE 14.84 sec 10/15/2021 2:59 PM CDT [facility] FIVC POST 2.91(L) 3.12 - 4.50 L 10/15/2021 2:59 PM CDT [facility] FIVC PRE 2.47(L) 3.12 - 4.50 L 10/15/2021 2:59 PM CDT [facility] FIF50% POST 3.62 L/s 10/15/2021 2:59 PM CDT [facility] FIF50% PRE 3.03 L/s 10/15/2021 2:59 PM CDT [facility] DLCOc SB 23.85 22.31 - 33.78 ml/(min*mm Hg) 10/15/2021 2:59 PM CDT [facility] VA 4.42(L) 5.63 - 5.63 L 10/15/2021 2:59 PM CDT [facility] DLCO/VA PRE 5.40 3.56 - 6.15 ml/(min*mm Hg*L) 10/15/2021 2:59 PM CDT [facility] IC SB 1.85(L) 2.73 - 2.73 L 10/15/2021 2:59 PM CDT [facility] VC PRE 3.02(L) 3.12 - 4.50 L 10/15/2021 2:59 PM CDT [facility] TLC PRE 4.20(L) 4.79 - 6.76 L 10/15/2021 2:59 PM CDT [facility] RV PRE 1.18(L) 1.32 - 2.47 L 10/15/2021 2:59 PM CDT [facility] FRC PL PRE 2.79 2.15 - 3.79 L 10/15/2021 2:59 PM CDT [facility] ERV PRE 1.60(H) 1.08 - 1.08 L 10/15/2021 2:59 PM CDT [facility] IC PRE 1.41(L) 2.73 - 2.73 L 10/15/2021 2:59 PM CDT [facility] RAW PRE 2.25(L) 3.06 - 3.06 cmH2O*s/L 10/15/2021 2:59 PM CDT [facility] BF RES 16.17 BPM 10/15/2021 2:59 PM T [facility] Anatomical Region Laterality Modality PFT 10/15/2021 2:11 [...] Kate Carrasco MD PFT ORDERABLES Final Result documented in this encounter Visit Diagnoses Diagnosis Chronic rhinitis Mild persistent asthma without complication Dyspnea and respiratory abnormalities documented in this encounter Care Teams Data Scientist Relationship Specialty Start Date End Date Tristin Ghotra MD [address] [address] PCP - General 12/07/18 documented as of this encounter
--- OUTSIDE RECORDS SUMMARY | 2024-02-18 03:28 | XMS_ITS | Encounter Summary ---
Author Organization [facility] Address [address] [address] Care Team Providers Care Immigration Case Manager Name Role Phone Tristin Ghotra MD Primary Care Provider [phone] Encounter Details Date Type Department Care Team (Late st Contact Info) Description 10/13/2021 2:30 PM CDT Lab [facility] Outpatient Lab at [address] [phone] Chronic rhinitis Social History Tobacco Use Types Packs/Day Years Used Date Smoking Tobacco: Never Alcohol Use Standard Drinks/Week Comments Yes 0 (1 standard drink = 0.6 oz pur e alcohol) Comments Unknown Sex and Gender Information Value Date Recorded Sex Assigned at Not on file 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
--- OUTSIDE RECORDS SUMMARY | 2024-02-18 03:28 | XMS_ITS | Encounter Summary ---
Author Organization [facility] Healthcare Address [address] [place] [address] Care Team Providers Care Wedger Machine Name Role Phone Tristin Ghotra MD Primary Care Provider [phone] Encounter Details Date Type Department Care Team (Late st Contact Info) Description 12/19/2023 Telephone [facility] Specialty Services [address] [place] [phone] Miscellaneous, Not In File Social History Tobacco Use Types Packs/Day Years Used Date Smoking Tobacco: Never Alcohol Use Standard Drinks/Week Comments Yes 0 (1 standard drink = 0.6 oz pur e alcohol) Comments Unknown Sex and Gender Information Value Date Recorded Sex Assigned at Not on file 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
--- OUTSIDE RECORDS SUMMARY | 2024-02-18 03:28 | XMS_ITS | Encounter Summary ---
Author Organization [facility] Address [address] [facility] [address] [place] [address] Care Team Providers Care Warehouse Shipper Name Role Phone Tristin Ghotra MD Primary Care Provider [phone] Reason for Visit * Reason Comments Follow-up Encounter Details Date Type Department Care Team (Late st Contact Info) Description 03/01/2022 9:15 AM SWITCHBOARD CLERK Office Visit [facility] Pulmonology [address] [facility] [address] [place] [phone] Kate Carrasco MD [address] [facility] [address] [place], [place] [id number] Non-seasonal allergic rhinitis due to other allergic trigger (Primary Dx); Mild persistent asthma without complication Social History Tobacco Use Types Packs/Day Years Used Date Smoking Tobacco: Never Alcohol Use Standard Drinks/Week Comments Yes 0 (1 standard drink = 0.6 oz pur e alcohol) Comments Unknown Sex and Gender Information Value Date Recorded Sex Assigned at Not on file Legal Sex Female 3:22 AM SWITCHBOARD CLERK Gender Identity Female 06/27/2022 9:35 PM CDT Sexual Orientation Not on file documented as of this encounter Last Filed Vital Signs Vital Sign Reading Time Taken Comments Blood Pressure 125/73 03/01/2022 9:09 AM SWITCHBOARD CLERK Pulse 69 03/01/2022 9:09 AM SWITCHBOARD CLERK Temperature - - Respiratory Rate 18 03/01/2022 9:09 AM SWITCHBOARD CLERK Oxygen Saturation 97% 03/01/2022 9:09 AM SWITCHBOARD CLERK Inhaled Oxygen Concentration - - Weight 72.5 kg (159 lb 12.8 oz) 03/01/2022 9:09 AM SWITCHBOARD CLERK Height 175.3 cm (5' 9 ) 03/01/2022 9:09 AM SWITCHBOARD CLERK Body Mass Index 23.6 03/01/2022 9:09 AM SWITCHBOARD CLERK documented in this encounter Ordered Prescriptions Prescription Sig Dispense Quantity Refills Last Filled Start Date End Date cetirizine (ZyrTEC) 10 mg tabletIndications: Non-seasonal allergic rhinitis due to other allergic trigger Take 1 tablet (10 mg total) by mouth daily 90 tablet 1 03/01/2022 tiotropium bromide (SPIRIVA RESPIMAT) 2.5 mcg/actuation inhalerIndications :Mild persistent asthma without complication Inhale 2 puffs daily 70 g 2 03/01/2022 06/28/2022 fluticasone propion-salmeteroL (WIXELA INHUB) 250-50 mcg/dose diskus inhalerIndications :Mild persistent asthma without complication Inhale 1 puff 2 (two) times a day Rinse mouth with water after use. Do not swallow. 3 each 3 03/01/2022 06/28/2022 tiotropium bromide (SPIRIVA RESPIMAT) 2.5 mcg/actuation inhalerIndications :Mild persistent asthma without complication Inhale 2 puffs daily 70 g 2 03/01/2022 03/01/2022 fluticasone propion-salmeteroL (WIXELA INHUB) 250-50 mcg/dose diskus inhalerIndications :Mild persistent asthma without complication Inhale 1 puff 2 (two) times a day Rinse mouth with water after use. Do not swallow. 1 each 3 03/01/2022 03/01/2022 documented in this encounter Progress Notes * Kate Carrasco MD - 03/01/2022 9:15 AM CST Images from the original note were not included. PULMONARY CLINIC NOTE Visit Date: 03/01/2022 INTERVAL HISTORY: Presents today for follow-up of Asthma No wheezing. Coughing and dyspnea improved Stopped using symbicort 3 days due to concern for possible weight gain related to inhaled steroid. . Using albuterol more frequently Using singulair. Rhinitis and post nasal drip unchanged Symbicort not covered by insurance nor is advair. HPI: Patient is a 47 y.o. female [...] etoh. No drug use. 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 Has cat. No other obvious exposures. Review of Systems: Review of Systems Constitutional: Negative for chills and fever. HENT: Negative for nosebleeds. Eyes: Negative for pain. Respiratory: Negative for wheezing. Cardiovascular: Negative for chest pain. Gastrointestinal: Negative for blood in stool. Endocrine: Negative for polydipsia. Genitourinary: Negative for hematuria. Musculoskeletal: Negative for joint swelling. Skin: Negative for rash. Neurological: Negative for seizures. Psychiatric/Behavioral: Negative for behavioral problems. OBJECTIVE: Physical Exam: Vitals: 03/01/22 0909 BP: 125/73 BP Location: Right arm Patient Position: Sitting Pulse: 69 Resp: 18 SpO2: 97% Weight: 72.5 kg (159 lb 12.8 oz) Height: 175.3 cm (5' 9 ) [...] Mood normal. Behavior: Behavior normal. Data Review: Personally reviewed chest x-ray with patient: No large masses, effusions opacities. Mostly normal Pulmonary function testin10/15/2021 Moderate obstruction with very significant bronchodilator response. Mild restriction. Normal DLCO ASSESSMENT AND PLAN Asthma Continue albuterol. Add spiriva. Will use ICS/LABA on prn basis in case it is contributing to weight gain. Symbicort and advair not covered, try wixela instead. May need biologic in future rhinitis Continue singular. Add zyrtec. Kate Carrasco MD Pulmonary Medicine There may be syntax/grammatical errors in this note due to the use of voice recognition software. CHBOARD CLERK documented in this encounter Plan of Treatment Not on file documented as of this encounter Visit Diagnoses Diagnosis Non-seasonal allergic rhinitis due to other allergic trigger- Primary Mild persistent asthma without complication documented in this encounter Discontinued Medications Medication Sig Discontinue Reason Start Date End Da te fluticasone propion-salmeteroL (ADVAIR HFA) 115-21 mcg/actuation inhaler Inhale 2 puffs 2 (two) times a day Rinse mouth with water after use. Do not swallow. Other 02/16/2022 03/01/2022 fluticasone propion-salmeteroL (WIXELA INHUB) 250-50 mcg/dose diskus inhalerIndications:Mild persistent asthma without complication Inhale 1 puff 2 (two) times a day Rinse mouth with water after use. Do not swallow. 03/01/2022 03/01/2022 tiotropium bromide (SPIRIVA RESPIMAT) 2.5 mcg/actuation inhalerIndications:Mild persistent asthma without complication Inhale 2 puffs daily 03/01/2022 03/01/2022 documented as of this encounter Historical Medications * This list may reflect changes made after this encounter. losartan (COZAAR) 25 mg tablet losartan 25 mg tablet TAKE 1 TABLET BY MOUTH EVERY DAY added in this encounter Care Teams Warehouse Shipper Relationship Specialty Start Date End Date Tristin Ghotra MD [address] [facility] [address] [place] [address] PCP - General 12/07/18 documented as of this encounter
--- OUTSIDE RECORDS SUMMARY | 2024-02-18 03:28 | XMS_ITS | Encounter Summary ---
Author Organization [facility] Care Team Providers Care Loss Prevention Manager Name Role Phone Tristin Ghotra MD Primary Care Provider [phone] Encounter Details Date Type Department Care Team (Latest Contact Info) Description 05/20/2015 9:10 AM CDT - 05/20/2015 11:59 PM CDT Hospital Encounter [facility] Mason Waldrop MD [address] [facility] [address] [place] [address] Atherosclerotic heart disease of [place] coronary artery without angina pectoris; Coronary artery dissection; Essential (primary) hypertension Social History Tobacco Use Types Packs/Day Years Used Date Smoking Tobacco: Never Alcohol Use Standard Drinks/Week Comments Yes 0 (1 standard drink = 0.6 oz pur e alcohol) Comments Unknown Sex and Gender Information Value Date Recorded Sex Assigned at Not on file 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 Gender Identity Female 06/27/2022 9:35 PM CDT [...] route every day 30 0 09/27/2013 11/30/2021 ursodioL (EDGAR FORTE) 500 mg tablet daily 04/19/2012 06/28/2022 documented as of this encounter Plan of Treatment Not on file documented as of this encounter Procedures Procedure Name Priority Date/Time Associated Diagnosis Comments PLASMA LIPID PANEL Routine 05/20/2015 9: 18 AM CDT DISCHARGE LABORATORY CUMULATIVE REPORT 05/20/2015 documented in this encounter Results * (ABNORMAL) Plasma lipid panel (05/20/2015 9:18 AM CDT) [facility] [address] Cholesterol 164 30 - 200 mg/dl HISTORICAL RESULTS Comment: Desirable: ??<200 mg/dL Borderline: 200-239 mg/dL High: ? >240 Mg/dL Triglycerides 68 0 - 150 mg/dl HISTORICAL RESULTS Comment: Desirable: ??<150 mg/dL Borderline: 150-199 mg/dL High: ? >200 mg/dL Literature reference: ??National Cholesterol Education Program (NCEP) Expert Panel on Detection, Evaluation and Treatment for High Blood Cholesterol in Adults (Adult Treatment Panel III). Circulation 2004;110:227. HDL 70(H) 40 - 60 mg/dl HISTORICAL RESULTS Comment: Reference Values: <40 mg/dL = Low, a major risk factor for heart disease >60 mg/dL = High, considered protective of heart disease LDL 80 10 - 129 mg/dl HISTORICAL RESULTS Comment: Optimal: ? <100 mg/dL Near Optimal: ??100-129 mg/dL Borderline: ?130-159 mg/dL High: ?>160 mg/dL Literature Reference: ??National cholesterol education program (NCEP) expert panel on detection, evaluation, and treatment of high blodd cholestrol in adults (Adult Treatment Panel III). Circulation 2004;110:227. Plasma 05/20/2015 9:18 AM CDT us Mason Waldrop MD LAB BLOOD ORDERABLES Final Resu lt HISTORICAL RESULTS * DISCHARGE LABORATORY CUMULATIVE REPORT (05/20/2015) Narrative 05/20/2015 Ordered by an unspecified provider. 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
--- OUTSIDE RECORDS SUMMARY | 2024-02-18 03:28 | XMS_ITS | Encounter Summary ---
Author Organization [facility] Address [address] [place] [address] Phone Care Team Providers Care Business Office Representative Name Role Phone Tristin Ghotra MD Primary Care Provider [phone] Reason for Referral * Consultation (Routine) - Closed Specialty Diagnoses / Procedures Referred By George cr Referred To Contact Otolaryngology Diagnoses Enlarged tonsils Tristin Ghotra MD [address] [place] [address] Phone: tel: fax: [facility] (All Locations) Referral ID Status Reason Start Date Expiration Date V isits Requested Visits Authorized [id number] Closed Specialty Services Required 08/27/2020 09/26/2021 99 99 Question Answer Please select the performing region: [facility] (All Locations) [[id number]] # of visits: 1 Reason for Visit * Reason Comments Enlarged Tonsils * Consultation (Routine) - Closed Specialty Diagnoses / Procedures Referred By George cr Referred To Contact Otolaryngology Diagnoses Enlarged tonsils Tristin Ghotra MD [address] [place] [address] Phone: tel: fax: [facility] (All Locations) Referral ID Status Reason Start Date Expiration Date V isits Requested Visits Authorized [id number] Closed Specialty Services Required 08/27/2020 09/26/2021 99 99 Encounter Details Date Type Department Care Team (Late st Contact Info) Description 09/03/2020 3:30 PM CDT Office Visit [facility] Otolaryngology [address] [place] [address] Salinas Pandya II, MD [address] [place] [address] Enlarged tonsils (Primary Dx); Lymphadenopathy of left cervical region Social History Tobacco Use Types Packs/Day Years Used Date Smoking Tobacco: Never Alcohol Use Standard Drinks/Week Comments Yes 0 (1 standard drink = 0.6 oz pur e alcohol) Comments Unknown Sex and Gender Information Value Date Recorded Sex Assigned at Not on file 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 Primary care provider is Tristin Ghotra MD . Chief Complaint: Paola Mckeon is a 45 y.o. female with complaints of enlarged tonsils and neck mass. HPI: She comes to clinic today for evaluation of enlarged tonsils and neck mass . Symptoms are ongoing and described as Mild in severity. This has been present for to month(s), Subjective: Patient states that for 2 months she has had difficulty with a swelling in the left side of her neck in the supraclavicular area. She denies any trauma to this region. She is not having fevers or chills but she has noticed some night sweats. She apparently had a workup of this by her primary care physician. It is unclear what type of test she had. She was ultimately sent to see a general surgeon regarding this. CT scan of the neck was ordered. Patient was also told that tonsils looked enlarged on the CT scan but she is not having any sore throats or trouble with pain in her throat. Voice is stable without dysphagia. Past Medical/Surgical History Past Medical History: Diagnosis Date ??? Allergic rhinitis ??? Fatigue ??? HX OTHER MEDICAL biliary obstruction with multiple stents and remov; Comments: CHUCK 09/25/2013 - ??? Hypertension ??? Shortness of breath Past Surgical History: Procedure Laterality Date ??? APPENDECTOMY Appendectomy ??? CHOLECYSTECTOMY Cholecystectomy Past Family/Social History Family History Problem Relation Age of Onset ??? Cancer Mother ??? Cancer Father Social History Socioeconomic History ??? Marital status: Spouse name: None ??? Number of children: None ??? Years of education: None ??? Highest education level: None Occupational History ??? None Tobacco Use ??? Smoking status: Never Smoker Substance and Sexual Activity ??? Alcohol use: Yes ??? Drug use: None ??? Sexual activity: None Other Topics Concern ??? ADL RESPONSE ??? ADL RESPONSE ??? ADL RESPONSE Yes Comment: 8 oz coffee soda /day ??? ADL RESPONSE ??? ADL RESPONSE ??? ADL RESPONSE ??? ADL RESPONSE ??? ADL RESPONSE ??? ADL RESPONSE ??? ADL RESPONSE ??? ADL RESPONSE ??? ADL RESPONSE ??? ADL RESPONSE ??? ADL RESPONSE Social History Narrative ??? None Social Determinants of Health Financial Resource Strain: ??? Difficulty of Paying Living Expenses: Food Insecurity: ??? Worried About Running Out of Food in the Last Year: ??? Ran Out of Food in the Last Year: Transportation Needs: ??? Lack of Transportation (Medical): ??? Lack of Transportation (Non-Medical): Physical Activity: ??? Days of Exercise per Week: ??? Minutes of Exercise per Session: Stress: ??? Feeling of Stress : Social Connections: ??? Frequency of Communication with Friends and Family: ??? Frequency of Social Gatherings with Friends and Family: ??? Attends Sabianism Services: ??? Active Member of Clubs or Organizations: ??? Attends Club or Organization Meetings: ??? Marital Status: Intimate Partner Violence: ??? Fear of Current or Ex-Partner: ??? Emotionally Abused: ??? Physically Abused: ??? Sexually Abused: Medications/Allergies/Immunizations Current Outpatient Medications Medication Sig Dispense Refill ??? aspirin 81 mg tablet take 1 tablet by oral route every day 0 0 ??? ramipril (ALTACE) 2.5 mg capsule take 1 capsule by oral route every day 30 0 No current facility-administered medications for this visit. Allergies: Patient has no known allergies., Immunizations: There is no immunization history on file for this patient. Review of Systems The 12 point review of systems filled out by the patient on their history form was reviewed today, and will be scanned into the encounter. Vital Signs: Vitals Resp 17 Ht 175.3 cm (5' 9 ) Wt 68 kg (150 lb) BMI 22.15 kg/m?? PHYSICAL EXAMINATION: Appearance: Well-developed adult no acute distress. Communication: Normal ability to communicate and answer questions. Orientation: Alert and oriented to person place and time. Mood: Mood and affect are appropriate, pleasant and cooperative for the encounter circumstances. GENERAL: Well-developed, well-nourished. Answers questions appropriately. NEURO/PSYCH: Affect is normal. Alert and oriented. Extraocular muscles are intact. Cranial Nerves: Cranial nerves II-VII and IX-XII are intact and symmetric. Ocular mobility: Orthophoric in primary gaze. HEAD/FACE: Normocephalic; atraumatic. No facial skin lesions. EARS : External ears have no skin lesions. Auricles are regularly set on the head. Hearing is grossly intact. Right - EAC patent. TM intact. Middle ear aerated. Left - EAC patent. TM intact. Middle ear aerated. Hearing: Grossly intact bilaterally. Tuning fork test shows the Valdes test to be midline. Air conduction is greater than bone conduction bilaterally. NOSE: External nose has no skin lesions. Nasal dorsum is essentialy midline. Nasal septum is deviated to the left blocking half the airway.. Inferior and middle turbinates are normal size. No mucosallesions or polyps are seen on either side. ORAL CAVITY/ OROPHARYNX: Skin of the lips is without lesions. Normal oral vestibule. Oral mucosa ismoist without lesions. Tongue and floor of mouth are without lesions or masses. Palate has no lesions and elevates symmetrically. Tonsils are 1 to 2+ without erythema or exudate.. Oropharynx is clearwithout erythema or exudate. NECK: Trachea is midline. Normal without skin masses, tenderness or crepitus. Thyroid is normal in size with no apparent nodules. Hypopharynx/Nasopharynx/Larynx: Base of tongue is symmetric without masses. Nasopharynx is clear ofmass lesions. Eustachian tube orifices clear bilaterally. Fossa of Rosenmuller is clear bilaterally. Epiglottis is normal without edema or mass lesions. Hypopharynx is clear of masses including the pyriform sinuses. The false and true vocal cords are clear of masses. True vocal cords are mobile bilaterally. No paralysis. Voice quality without significant hoarseness. Salivary Glands: The submandibular glands are non-tender without masses. The parotid glands are non-tender without edema or masses. There is clear saliva flow from Stensen's and Ullin's ducts bilaterally. LYMPHATIC: No cervical lymphadenopathy except for 1 small 4-5 mm mass in the left supraclavicular area which appears to be a very small lymph node or possible mass of the deeper layers of the skin. Cranial nerves: II-XII are intact and symmetric. Facial strength is I/ bilaterally with normal facial muscle tone. MUSCULOSKELATAL: Ambulates without difficulty. Neck full range of motion. RESPIRATORY: Normal respiratory effort. Breathing comfortably without audible wheeze, stertor or stridor. Peripheral vascular system: Normal right and left neck vascular exam without thrill or aneurysm. PROCEDURE: None ASSESSMENT & PLAN Problem List Items Addressed This Visit ENT Enlarged tonsils - Primary Relevant Orders Ambulatory referral to ENT Symptoms and Signs Lymphadenopathy of left cervical region No orders of the defined types were placed in this encounter. Orders Placed This Encounter Procedures ??? Ambulatory referral to ENT Standing Status: Future Number of Occurrences: 1 Standing Expiration Date: 08/27/2021 Referral Priority: Routine Referral Type: Consultation Referral Reason: Specialty Services Required Referral Location: [facility] (All Locations) Requested Specialty: Otolaryngology Number of Visits Requested: 1 Patient has presumed enlarged tonsils but exam today does not demonstrate this and there is no inflammation in the pharynx or hypopharynx. I can palpate 1 small mass in the left supraclavicular area.This could be a small lymph node or a mass of the deeper levels of the skin. Given its size and thefact that it is nontender I have not recommended treatment. I did review her CT scan images. This is from [facility] and I do not see any mass lesions in the neck or supraclavicular region on this scan. Therefore on not sure if she has significant neck mass that requires treatment and I discussed with her that I would do not think antibiotics at this point would be indicated. I have contacted her primary care physician to try to get previous records to see what tests they have done and they are sending what they have. Patient may need CBC and possibly other labs depending on what was drawn. I do not see anything to biopsy at this point. Medical records from the primary care physician and/or the referring physician were personally reviewed for today's visit. This note was generated with voice recognition software and small grammatical errors may be encountered. Salinas Pandya II, M.D. documented in this encounter Plan of Treatment Scheduled Referrals Name Type Priority Associated Diagnoses Order Schedule Ambulatory referral to ENT Outpatient Referral Routine Enlarged tonsils Expected: 09/10/2020 (Approximate), Expires: 08/27/2021 documented as of this encounter Visit Diagnoses Diagnosis Enlarged tonsils- Primary Hypertrophy of tonsils alone Lymphadenopathy of left cervical region documented in this encounter Discontinued Medications Medication Sig Discontinue Reason Start Date End Da te ramipril (ALTACE) 5 mg capsule TAKE 1 CAPSULE BY MOUTH DAILY Alternate therapy 10/30/2017 09/03/2020 clopidogrel (PLAVIX) 75 mg tablet take 1 tablet by oral route every day Therapy completed 10/11/2013 09/03/2020 documented as of this encounter Care Teams Business Office Representative Relationship Specialty Start Date End Date Tristin Ghotra MD [address] [place] [address] PCP - General 12/07/18 documented as of this encounter
--- OUTSIDE RECORDS SUMMARY | 2024-02-18 03:28 | XMS_ITS | Encounter Summary ---
Author Organization [facility] Address [address] [place] [address] Care Team Providers Care Airbrush Artist Name Role Phone Tristin Ghotra MD Primary Care Provider [phone] Reason for Visit * Reason Onset Date Comments Med Change Request 02/16/2022 Encounter Details Date Type Department Care Team (Late st Contact Info) Description 02/16/2022 Telephone [facility] Pulmonology [address] [place] [address] Sola Mendiola MA Med Change Request Social History Tobacco Use Types Packs/Day Years Used Date Smoking Tobacco: Never Alcohol Use Standard Drinks/Week Comments Yes 0 (1 standard drink = 0.6 oz pur e alcohol) Comments Unknown Sex and Gender Information Value Date Recorded Sex Assigned at Not on file Legal Sex Female 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 Do not swallow. 36 g 1 02/16/2022 03/01/2022 documented in this encounter Miscellaneous Notes * Telephone Encounter - Sola Mendiola MA - 02/16/2022 4:33 PM BIOFUELS PLANT SUPERINTENDENT Patient informed, sent Advair to pharmacy. UELS PLANT SUPERINTENDENT * Telephone Encounter - Kate Carrasco MD - 02/16/2022 3:28 PM CST Can try Advair HFA 110mcg dose or Dulera 100mcg UELS PLANT SUPERINTENDENT * Telephone Encounter - Sola Mendiola MA - 02/16/2022 3:11 PM BIOFUELS PLANT SUPERINTENDENT Patient called in stating that her insurance does not covered Symbicort any more and she is needinga new prescription, please advise. UELS PLANT SUPERINTENDENT documented in this encounter Plan of Treatment Not on file documented as of this encounter Visit Diagnoses Not on filedocumented in this encounter Discontinued Medications Medication Sig Discontinue Reason Start Date End Da te budesonide-formoteroL (Symbicort) 80-4.5 mcg/actuation inhalerIndications:Mild persistent asthma without complication Inhale 2 puffs 2 (two) times a day Rinse mouth with water after use. Do not swallow. Alternate therapy 01/07/2022 02/16/2022 documented as of this encounter Care Teams Airbrush Artist Relationship Specialty Start Date End Date Tristin Ghotra MD [address] [place] [address] PCP - General 12/07/18 documented as of this encounter
--- OUTSIDE RECORDS SUMMARY | 2024-02-18 03:28 | XMS_ITS | Encounter Summary ---
Author Organization [facility] Address [address] [place] [address] Care Team Providers Care Lehr Stripper Name Role Phone Tristin Ghotra MD Primary Care Provider [phone] Encounter Details Date Type Department Care Team (Late st Contact Info) Description 11/30/2021 1:30 PM CDT Office Visit [facility] Pulmonology [address] [place] [address] Kate Carrasco MD [address] [facility] [address] [place] [address] Mild persistent asthma without complication (Primary Dx); Non-seasonal allergic rhinitis due to other allergic trigger Social History Tobacco Use Types Packs/Day Years Used Date Smoking Tobacco: Never Alcohol Use Standard Drinks/Week Comments Yes 0 (1 standard drink = 0.6 oz pur e alcohol) Comments Unknown Sex and Gender Information Value Date Recorded Sex Assigned at Not on file 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 Gender Identity Female 06/27/2022 9:35 PM CDT Sexual Orientation Not on file documented as of this encounter Last Filed Vital Signs Vital Sign Reading Time Taken Comments Blood Pressure 145/79 11/30/2021 1:29 PM CDT Pulse 66 11/30/2021 1:29 PM CDT Temperature - - Respiratory Rate 16 11/30/2021 1:29 PM CDT Oxygen Saturation 98% 11/30/2021 1:29 PM CDT Inhaled Oxygen Concentration - - Weight 68.1 kg (150 lb 3.2 oz) 11/30/2021 1:29 P M CDT Height 175.3 cm (5' 9.02 ) 11/30/2021 1:29 PM CD T Body Mass Index 22.17 11/30/2021 1:29 PM CDT documented in this encounter Ordered Prescriptions Prescription Sig Dispense Quantity Refills Last Filled Start Date End Date montelukast (SINGULAIR) 10 mg tabletIndications: Non-seasonal allergic rhinitis due to other allergic trigger Take 1 tablet (10 mg total) by mouth nightly 90 tablet 1 11/30/2021 documented in this encounter Progress Notes * Kate Carrasco MD - 11/30/2021 1:30 PM CDT Images from the original note were not included. PULMONARY CLINIC NOTE Visit Date: 11/30/2021 INTERVAL HISTORY: Presents today for follow-up of Asthma Overall feeling much improved. Dyspnea with exertion is better. Coughing and nighttime symptoms improved. No wheezing Rhinitis and post nasal drip unchanged Using Symbicort. Rarely using albuterol. HPI: Patient is a 46 y.o. female [...] etoh. No drug use. 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 OBJECTIVE: Physical Exam: Vitals: 11/30/21 1329 BP: 145/79 BP Location: Left arm Patient Position: Sitting Pulse: 66 Resp: 16 SpO2: 98% Weight: 68.1 kg (150 lb 3.2 oz) Height: 175.3 cm (5' 9.02 ) Physical Exam Constitutional: General: She is [...] ASSESSMENT AND PLAN Asthma Continue albuterol. Add Symbicort rhinitis Start singular Kate Carrasco MD Pulmonary Medicine There may be syntax/grammatical errors in this note due to the use of voice recognition software. documented in this encounter Plan of Treatment Not on file documented as of this encounter Visit Diagnoses Diagnosis Mild persistent asthma without complication- Primary Non-seasonal allergic rhinitis due to other allergic trigger documented in this encounter Discontinued Medications Medication Sig Discontinue Reason Start Date End Da te ramipril (ALTACE) 2.5 mg capsule take 1 capsule by oral route every day Other 09/27/2013 11/30/2021 documented as of this encounter Historical Medications * This list may reflect changes made after this encounter. cholestyramine (QUESTRAN) 4 gram packet TAKE 1 PACKET 3 TIMES DAILY in juice 03/23/2012 3 clobetasoL (CLOBEX) 0.05 % shampoo Apply topically as needed 3 doxazosin (CARDURA) 1 mg tablet daily 3 metoprolol XL (TOPROL-XL) 50 mg extended release tablet TAKE ONE TABLET BY MOUTH ONE TIME DAILY 04/27/2015 3 naltrexone (DEPADE) 50 mg tablet TAKE 1 TABLET BY MOUTH EVERY DAY NEEDED ITCHING 04/12/[address] (PROTONIX) 40 mg EC tablet Take 40 mg by mouth daily 3 sertraline (ZOLOFT) 100 mg tablet sertraline 100 mg tablet 3 spironolactone (ALDACTONE) 100 mg tablet Take 100 mg by mouth daily 3 ursodioL (EDGAR FORTE) 500 mg tablet daily 04/19/2012 3 added in this encounter Care Teams Lehr Stripper Relationship Specialty Start Date End Date Tristin Ghotra MD [address] [address] [place] [address] PCP - General 12/07/18 documented as of this encounter
--- OUTSIDE RECORDS SUMMARY | 2024-02-18 03:28 | XMS_ITS | Referral Summary ---
Author Organization [facility] Address [address] [place] [address] Care Team Providers Care Multi Slide Machine Tender Name Role Phone Tristin Ghotra MD Primary Care Provider [phone] Encounters Date Type Department Care Team Description 12/19/2023 Telephone [facility] Specialty Services [address] [place] [address] Miscellaneous, Not In File from Last 3 Months Allergies No known active allergies Medications aspirin 81 mg tablet take 1 tablet by oral route every day 0 0 4 Active amLODIPine (NORVASC) 5 mg tablet amlodipine 5 mg tablet TAKE 1 TABLET BY MOUTH EVERY DAY Active albuterol HFA (PROVENTIL HFA,VENTOLIN HFA,PROAIR HFA) 90 mcg/actuation inhaler albuterol sulfate HFA 90 mcg/actuation aerosol inhaler Active inhalational spacing device ([facility]) spacer 1 Device daily 1 [...] 09/03/2020 Lymphadenopathy of left cervical region 09/04/19 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 Chronic coronary artery disease 05/11/2015 Hypertension 04/27/2015 Rash 01/18/2012 Abnormal liver function tests 01/10/2012 Itch 12/21/2011 Chronic rhinitis Dyspnea and respiratory abnormalities Mild persistent asthma without complication Social History Tobacco Use Types Packs/Day Years Used Date Smoking Tobacco: Never Alcohol Use Standard Drinks/Week Comments Yes 0 (1 standard drink = 0.6 oz pur e alcohol) Comments Unknown Sex and Gender Information Value Date Recorded Sex Assigned at Not on file 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 Gender Identity Female 06/27/2022 9:35 PM CDT Sexual Orientation Not on file Last Filed [...] 06/28/2022 9:09 AM CDT Plan of Treatment Not on file Procedures Procedure Name Priority Date/Time Associated Diagnosis Comments SCREENING MAMMOGRAM BILATERAL W NADIR 12/27/2018 2:46 PM NURSE AUDITOR from Last 3 Months or Most Recently Relevant to Health Maintenance Results * Screening Mammogram Bilateral W Nadir (12/27/2018 2:46 PM NURSE AUDITOR) Anatomical Region Laterality Modality Breast Bilateral Mammography 12/27/2018 3:37 PM NURSE AUDITOR Narrative 12/28/2018 10:58 AM NURSE AUDITOR Patient Name: RUDI MCKEON V ?Ordering Dr: Ahsan Street ?? D.O.B: 1975 ? Exam Date: 12/27/18 ?? 1446 ?? Age: 43 ?Sex: Female ? MR#: [id number] ?? Loc: ? RADIOLOGY REPORT ?? Order #[id number] ?? [facility] ? Breanna Bilat Screening 3D ? Signed [...] age 41, based on guidelines of the [employer] ?? [employer] (ACR Practice Parameter for the Performance of Screening and ?? Diagnostic Mammography) and [employer] Obstetricians and ?? Gynecologists. For women with an elevated risk of breast cancer, please refer ?? to the ACR Practice Parameter for specific screening recommendations. ? The patient will be entered into a reminder system with a target due date of 1 ?? year for her next screening exam. ? Electronically signed by: ?Sai Marcum M.D. ? ab/penrad:12/28/2018 10:58:37 ? Manager Of Maintenance: Kisha Dinh)(Caro), [facility] ?? letter sent: Normal Exam ? Reading location: ?? BI-RADS: 2 Benign ? REPORT ELECTRONICALLY SIGNED IN OTHER VENDOR SYSTEM ?? Resulting Agency Comment O Procedure Note Sai Marcum MD - 12/28/2018 Patient Name: RUDI MCKEON Dr: Ahsan Street D.O.B: 1975 Exam Date: 12/27/18 1446 Age: 43 Sex: Female MR#: [id number] Loc: RADIOLOGY REPORT Order #[id number] [facility] Breanna Bilat Screening 3D Signed - MG [...] age 41, based on guidelines of the [employer] (ACR Practice Parameter for the Performance of Screening and Diagnostic Mammography) and [employer] and Gynecologists. For women with an elevated risk of breast cancer, pleaserefer to the ACR Practice Parameter for specific screening recommendations. The patient will be entered into a reminder system with a target due dateof 1 year for her next screening exam. Electronically signed by: Sai lyons/trish:12/28/2018 10:58:37 Manager Of Maintenance: Kisha Dinh)(Caro), [facility] letter sent: Normal Exam Reading location: BI-RADS: 2 Benign REPORT ELECTRONICALLY SIGNED IN OTHER VENDOR SYSTEM us Ahsan Street MD IMG MAMMO PROCEDURES Final R esult from Last 3 Months or Most Recently Relevant to Health Maintenance Insurance [employer] [facility] Care Teams Multi Slide Machine Tender Relationship Specialty Start Date End Date Tristin Ghotra MD [address] [facility] [facility] [address] [place] [address] PCP - General 12/07/18
--- OUTSIDE RECORDS SUMMARY | 2024-02-18 03:28 | XMS_ITS | Encounter Summary ---
Author Organization [facility] Healthcare Address [address] [place] [address] Care Team Providers Care Technical Support Representative Name Role Phone Tristin Ghotra MD Primary Care Provider [phone] Encounter Details Date Type Department Care Team (Late st Contact Info) Description 10/13/2021 5:30 PM CDT Lab [address] [address] Chronic rhinitis Social History Tobacco Use Types Packs/Day Years Used Date Smoking Tobacco: Never Alcohol Use Standard Drinks/Week Comments Yes 0 (1 standard drink = 0.6 oz pur e alcohol) Comments Unknown Sex and Gender Information Value Date Recorded Sex Assigned at Not on file 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 Gender Identity Female 06/27/2022 9:35 PM CDT Sexual Orientation Not on file documented as of this encounter Plan of Treatment Not on file documented as of this encounter Procedures Procedure Name Priority Date/Time Associated Diagnosis Comments DIFFERENTIAL AUTO Routine 10/13/2021 2:1 3 PM CDT Chronic rhinitis REFLEX ALLERGEN EVALUATION Routine 10/13/2021 2:13 PM CDT Chronic rhinitis REFLEX ALLERGEN EVALUATION Routine 10/13/2021 2:13 PM CDT Chronic rhinitis ALLERGEN PENICILLIUM CHRYSOGENUM (MOLD) IGE Routine 10/13/2021 2:13 PM CDT Chronic rhinitis ALLERGEN MULBERRY (TREE) IGE Routine 10/13/2021 2:13 PM CDT Chronic rhinitis ALLERGEN MOUNTAIN JUNIPER (TREE) IGE Routine 10/13/2021 2:13 PM CDT Chronic rhinitis CBC WITH AUTO DIFFERENTIAL Routine 10/13/2021 2:13 PM CDT Chronic rhinitis ALLERGEN BERMUDA GRASS (GRASS) IGE Routine 10/13/2021 2:13 PM CDT Chronic rhinitis ALLERGEN PLANTAIN VINCENTIAN (WEED) IGE Routine 10/13/2021 2:13 PM CDT Chronic rhinitis ALLERGEN ELM (TREE) IGE Routine 10/14/19 2:13 PM CDT Chronic rhinitis ALLERGEN CLADOSPORIUM HERBARUM (MOLD) IGE Routine 10/13/2021 2:13 PM CDT Chronic rhinitis ALLERGEN BIRCH COMMON SILVER (TREE) IGE Routine 10/13/2021 2:13 PM CDT Chronic rhinitis ALLERGEN ALTERNARIA TENUIS (MOLD) IGE Routine 10/13/2021 2:13 PM CDT Chronic rhinitis ALLERGEN ASPERGILLUS FUMIGATUS (MOLD) IGE Routine 10/13/2021 2:13 PM CDT Chronic rhinitis ALLERGEN DERMATOPHAGOIDES PTERONYSSINUS (INSECT) IGE Routine 10/13/2021 2:13 PM CDT Chronic rhinitis ALLERGEN DERMATOPHAGOIDES FARINAE (INSECT) IGE Routine 10/13/2021 2:13 PM CDT Chronic rhinitis ALLERGEN EPITHELIA/DANDER DOG (ANIMAL) IGE Routine 10/13/2021 2:13 PM CDT Chronic rhinitis ALLERGEN COCKROACH KAZAKH (INSECT) IGE Routine 10/13/2021 2:13 PM CDT Chronic rhinitis ALLERGEN EPITHELIA/DANDER CAT (ANIMAL) IGE Routine 10/13/2021 2:13 PM CDT Chronic rhinitis ALLERGEN RAGWEED SHORT/COMMON (WEED) IGE Routine 10/13/2021 2:13 PM CDT Chronic rhinitis ALLERGEN PIGWEED ROUGH (WEED) IGE Routine 10/13/2021 2:13 PM CDT Chronic rhinitis ALLERGEN RICO'S QUARTER (WEED) IGE Routine 10/13/2021 2:13 PM CDT Chronic rhinitis ALLERGEN SUHAIL GRASS (GRASS) IGE Routine 10/13/2021 2:13 PM CDT Chronic rhinitis ALLERGEN HUNTER GRASS (GRASS) IGE Routine 10/13/2021 2:13 PM CDT Chronic rhinitis ALLERGEN WALNUT (TREE) IGE Routine 10/13/2021 2:13 PM CDT Chronic rhinitis ALLERGEN SYCAMORE KAZAKH (TREE) IGE Routine 10/13/2021 2:13 PM CDT Chronic rhinitis ALLERGEN MAPLE/BOX ELDER (TREE) IGE Routine 10/13/2021 2:13 PM CDT Chronic rhinitis ALLERGEN OAK RED (TREE) IGE Routine 10/13/2021 2:13 PM CDT Chronic rhinitis ALLERGEN RAT URINE PROTEINS (ANIMAL) IGE Routine 10/13/2021 2:13 PM CDT Chronic rhinitis ALLERGEN MOUSE URINE PROTEINS (ANIMAL) IGE Routine 10/13/2021 2:13 PM CDT Chronic rhinitis IGE Routine 10/13/2021 2:13 PM CDT Chronic rhinitis documented in this encounter Results * Allergen evaluation (10/13/2021 2:13 PM CDT) RAST, allergen name See Interpretive data. FRED LO Comment: Interpretive data Rast Class ?Result range (KUnits/L) ?1+ ?0.35 ?- ?? 0.69 ?2+ ?0.70 ?- ?? 3.49 ?3+ ?3.50 ?- ??17.49 ?4+ ? 17.50 ?- ??49.99 ?5+ ? 50.00 ?- 100.00 ?6+ ? >100.00 Current interpretive data was last revised on 09. Testing performed by: [facility], [facility], [place]., [address] Blood 10/13/2021 2:13 PM CDT 10/14/2021 1:10 PM CDT us Kate Carrasco MD LAB [place]OD [place] [phone] [address] Department [place] [address] * Allergen evaluation (10/13/2021 2:13 PM CDT) RAST, allergen name See Interpretive data. FRED LO Comment: Interpretive data Rast Class ?Result range (KUnits/L) ?1+ ?0.35 ?- ?? 0.69 ?2+ ?0.70 ?- ?? 3.49 ?3+ ?3.50 ?- ??17.49 ?4+ ? 17.50 ?- ??49.99 ?5+ ? 50.00 ?- 100.00 ?6+ ? >100.00 Current interpretive data was last revised on 09. Testing performed by: [facility], [facility], [place]., [address] Blood 10/13/2021 2:13 PM CDT 10/14/2021 1:10 PM CDT us Kate Carrasco MD LAB BLOOD ORDERABLES Final Re sult [facility] [phone] [address] Department [place] [address] * Differential, auto (10/13/2021 2:13 PM CDT) Neutrophil abs 3.6 1.7 - 6.5 K/cumm [facility] Imm gran abs 0.0 0.0 - 0.1 K/cumm [facility] Lymphocyte abs 1.6 0.8 - 3.3 K/cumm [facility] Monocyte abs 0.4 0.2 - 0.8 K/cumm [facility] Eosinophil abs 0.1 0.0 - 0.5 K/cumm [facility] Basophil abs 0.0 0.0 - 0.1 K/cumm [facility] Neutrophil pct 63.0 % [facility] Comment: Interpretive Data Percent cell count reference ranges are not reported, since discordance with absolute values may lead to misinterpretation of CBC data. Current Interpretive Data was last revised on 2017. Imm gran pct 0.3 % [facility] Comment: Interpretive Data Percent cell count reference ranges are not reported, since discordance with absolute values may lead to misinterpretation of CBC data. Current Interpretive Data was last revised on 2017. Lymphocyte pct 27.6 % [facility] Comment: Interpretive Data Percent cell count reference ranges are not reported, since discordance with absolute values may lead to misinterpretation of CBC data. Current Interpretive Data was last revised on 2017. Monocyte pct 7.5 % [facility] Comment: Interpretive Data Percent cell count reference ranges are not reported, since discordance with absolute values may lead to misinterpretation of CBC data. Current Interpretive Data was last revised on 2017. Eosinophil pct 0.9 % [facility] Comment: Interpretive Data Percent cell count reference ranges are not reported, since discordance with absolute values may lead to misinterpretation of CBC data. Current Interpretive Data was last revised on 2017. Basophil pct 0.7 % [facility] Comment: Interpretive Data Percent cell count reference ranges are not reported, since discordance with absolute values may lead to misinterpretation of CBC data. Current Interpretive Data was last revised on 2017. Blood 10/13/2021 2:13 PM CDT 10/13/2021 5:33 PM CDT us Kate Carrasco MD LAB BLOOD ORDERABLES Final Re sult [facility] [address] [address] Department [place] [address] * (ABNORMAL) CBC with auto differential (10/13/2021 2:13 PM CDT) WBC 5.7 3.8 - 9.9 K/cumm [facility] Hgb 14.0 11.9 - 15.5 g/dL [facility] Hct 41.7 35.6 - 45.5 % [facility] Plt 260 150 - 400 K/cumm [facility] MPV 11.2 9.1 - 12.3 fL [facility] RBC 4.30 3.90 - 5.20 M/cumm [facility] MCV 97.0(H) 81.3 - 96.4 fL [facility] MCH 32.6 27.1 - 33.3 pg [facility] MCHC 33.6 32.3 - 35.7 g/dL [facility] RDW CV 12.9 11.1 - 14.9 % [facility] RDW SD 46.1 35.7 - 48.1 fL [facility] NRBC abs 0.00 0.00 - 0.01 K/cumm [facility] Blood 10/13/2021 2:13 PM CDT 10/13/2021 5:33 PM CDT Kate Carrasco MD LAB BLOOD ORDERABLES Final Re sult Performing Organization Address [facility]/[place] [phone] [address] Department [employer] [place] [address] * (ABNORMAL) IgE (10/13/2021 2:13 PM CDT) IgE 387.0(H) 1.0 - 100.0 IUnits/mL [facility] Comment:Testing performed by : [facility], [address] [place] [address]., [id number] Blood 10/13/2021 2:13 PM CDT 10/14/2021 1:01 PM CDT Kate Carrasco MD LAB BLOOD ORDERABLES Final Re sult Performing Organization Address [facility] [place] [phone] [address] Department [employer] [place] [address] * (ABNORMAL) Alleren Rat urine proteins (animal) IgE (10/13/2021 2:13 PM CDT) Pathologist [facility] Rat urine proteins IgE 1.79(H) 0.00 - 0.34 kUnits/L [facility] Comment:Testing performed by : [facility], [facility], [place]., [address] Blood 10/13/2021 2:13 PM CDT 10/14/2021 1:11 PM CDT Kate Carrasco MD LAB BLOOD ORDERABLES Final Re sult Performing Organization Address City/[facility] [place] [phone] [address] [facility] [employer] [place] [address] * (ABNORMAL) Allergen Mouse urine proteins (animal) IgE (10/13/2021 2:13 PM CDT) Mouse urine proteins IgE 1.22(H) 0.00 - 0.34 kUnits/L [facility] Comment:Testing performed by : [facility], [place]., [address] Blood 10/13/2021 2:13 PM CDT 10/14/2021 1:11 PM CDT Kate Carrasco MD LAB BLOOD ORDERABLES Final Re sult Performing Organization Address [facility] Co de Phone Number [facility] [phone] [address] Department [employer] [place] [address] * (ABNORMAL) Allergen Dog dander (animal) IgE (10/13/2021 2:13 PM CDT) Dog dander IgE 7.20(H) 0.00 - 0.34 kUnits/L [facility] Comment:Testing performed by : [facility], [place]., [address] Blood 10/13/2021 2:13 PM CDT 10/14/2021 1:11 PM CDT Kate Carrasco MD LAB BLOOD ORDERABLES Final Re sult Performing Organization Address [facility] de Phone Number [facility] [phone] [address] [facility] [employer] [place] [address] * Allergen Dermatophagoides pteronyssinus (insect) IgE (10/13/2021 2:13 PM CDT) Dermatophyton pteronyssinus IgE 0.12 0.00 - 0.34 kUnits/L [facility] Comment:Testing performed by : [facility], [place]., [address] Blood 10/13/2021 2:13 PM CDT 10/14/2021 1:11 PM CDT Kate Carrasco MD LAB BLOOD ORDERABLES Final Re sult Performing Organization Address [facility]/State/[facility] Co de Phone Number [facility] [address] [address] [facility] [employer] [place] [address] * Allergen Dermatophagoides farniae (insect) IgE (10/13/2021 2:13 PM CDT) Dermatophyton farinae IgE 0.11 0.00 - 0.34 kUnits/L [facility] Comment:Testing performed by : [facility], [place]., [address] Blood 10/13/2021 2:13 PM CDT 10/14/2021 1:11 PM CDT Kate Carrasco MD LAB BLOOD ORDERABLES Final Re sult Performing Organization Address [facility] Co de Phone Number [facility] [phone] [address] [facility] [employer] [place] [address] * Allergen Cockroach english (insect) IgE (10/13/2021 2:13 PM CDT) Cockroach IgE <0.10 0.00 - 0.34 kUnits/L [facility] Comment:Testing performed by : [facility], [place]., [address] Blood 10/13/2021 2:13 PM CDT 10/14/2021 1:11 PM CDT Kate Carrasco MD LAB BLOOD ORDERABLES Final Re sult Performing Organization Address City/[facility] Co de Phone Number [facility] [phone] [address] Department [employer] [place] [address] * (ABNORMAL) Allergen Cat dander standard (animal) IgE (10/13/2021 2:13 PM CDT) Cat dander IgE >100.00(H) 0.00 - 0.34 kUnits/L FRED Comment:Testing performed by : [facility], [place]., [address] Blood 10/13/2021 2:13 PM CDT 10/14/2021 1:11 PM CDT Kate Carrasco MD LAB BLOOD ORDERABLES Final Re sult Performing Organization Address [facility] Co de Phone Number [facility] [phone] [address] [facility] [employer] [place] [address] * (ABNORMAL) Allergen Penicillium chrysogenum (mold) IgE (10/13/2021 2:13 PM CDT) Penicillium chrysogenum IgE 0.40(H) 0.00 - 0.34 kUnits/L [facility] Comment:Testing performed by : [place]., [address] Blood 10/13/2021 2:13 PM CDT 10/14/2021 1:11 PM CDT Kate Carrasco MD LAB BLOOD ORDERABLES Final Re sult Performing Organization Address [facility] Co de Phone Number [facility] [phone] [address] [facility] [employer] [place] [address] * (ABNORMAL) Allergen Cladosporium herbarum (mold) IgE (10/13/2021 2:13 PM CDT) Cladosporium herbarum IgE 0.38(H) 0.00 - 0.34 kUnits/L [facility] Comment:Testing performed by : [place]., [address] Blood 10/13/2021 2:13 PM CDT 10/14/2021 1:11 PM CDT Kate Carrasco MD LAB BLOOD ORDERABLES Final Re sult Performing Organization Address City/[facility] Co de Phone Number [facility] [phone] [address] [facility] [employer] [place] [address] * (ABNORMAL) Allergen Aspergillus fumigatus (mold) IgE (10/13/2021 2:13 PM CDT) Aspergillus fumigatus IgE 0.48(H) 0.00 - 0.34 kUnits/L [facility] Comment:Testing performed by : [facility], [place]., [address] Blood 10/13/2021 2:13 PM CDT 10/14/2021 1:11 PM CDT Kate Carrasco MD LAB BLOOD ORDERABLES Final Re sult Performing Organization Address [facility] Co de Phone Number [facility] [phone] [address] [facility] [employer] [place] [address] * (ABNORMAL) Allergen Alternaria tenuis (mold) IgE (10/13/2021 2:13 PM CDT) Alternaria tenius IgE 2.64(H) 0.00 - 0.34 kUnits/L [facility] Comment:Testing performed by : [facility], [place]., [address] Blood 10/13/2021 2:13 PM CDT 10/14/2021 1:11 PM CDT Kate Carrasco MD LAB BLOOD ORDERABLES Final Re sult Performing Organization Address City/[facility] Co de Phone Number [facility] [address] [address] [facility] [place] [address] * (ABNORMAL) Allergen Ragweed short/common (weed) IgE (10/13/2021 2:13 PM CDT) Ragweed common IgE 0.42(H) 0.00 - 0.34 kUnits/L [facility] Comment:Testing performed by : [facility], [place]., [address] Blood 10/13/2021 2:13 PM CDT 10/14/2021 1:11 PM CDT Kate Carrasco MD LAB BLOOD ORDERABLES Final Re sult Performing Organization Address City/[facility] Co de Phone Number [facility] [phone] [address] [facility] [employer] [place] [address] * Allergen Pigweed, rough (weed) IgE (10/13/2021 2:13 PM CDT) Pigweed rough IgE <0.10 0.00 - 0.34 kUnits/L [facility] Comment:Testing performed by : [facility], [place]., [address] Blood 10/13/2021 2:13 PM CDT 10/14/2021 1:11 PM CDT Kate Carrasco MD LAB BLOOD ORDERABLES Final Re sult Performing Organization Address [facility] Co de Phone Number [facility] [phone] [address] [facility] [employer] [place] [address] * Allergen Rico's quarter (weed) IgE (10/13/2021 2:13 PM CDT) Pathologist [facility] Rico's quarters IgE <0.10 0.00 - 0.34 kUnits/L [facility] Comment:Testing performed by : [facility], [place]., [address] Blood 10/13/2021 2:13 PM CDT 10/14/2021 1:11 PM CDT Kate Carrasco MD LAB BLOOD ORDERABLES Final Re sult Performing Organization Address City/[facility]/ZIP Co de Phone Number [facility] [phone] [address] [facility] [employer] [place] [address] * Allergen Plantain new zealander (weed) IgE (10/13/2021 2:13 PM CDT) Pathologist [facility] Plantain new zealander IgE <0.10 0.00 - 0.34 kUnits/L [facility] Comment:Testing performed by : [facility], [place]., [address] Blood 10/13/2021 2:13 PM CDT 10/14/2021 1:11 PM CDT Kate Carrasco MD LAB BLOOD ORDERABLES Final Re sult Performing Organization Address [facility] Co de Phone Number FRED [phone] [address] Department [employer] [place] [address] * Allergen Suhail grass (grass) IgE (10/13/2021 2:13 PM CDT) Suhail grass IgE <0.10 0.00 - 0.34 kUnits/L [facility] Comment:Testing performed by : [facility], [place]., [address] Blood 10/13/2021 2:13 PM CDT 10/14/2021 1:11 PM CDT Result [facility] [place] Kate Carrasco MD LAB BLOOD ORDERABLES Final Re sult Performing Organization Address [facility] de Phone Number FRED [phone] [address] [facility] [employer] [place] [address] * Allergen Hunter grass (grass) IgE (10/13/2021 2:13 PM CDT) Hunter grass IgE <0.10 0.00 - 0.34 kUnits/L [facility] Comment:Testing performed by : [facility], [place]., [address] Blood 10/13/2021 2:13 PM CDT 10/14/2021 1:11 PM CDT Result [facility] [place] Kate Carrasco MD LAB BLOOD ORDERABLES Final Re sult Performing Organization Address [facility] Co de Phone Number FRED [phone] [address] Department [employer] [place] [address] * Allergen B[place] grass (grass) IgE (10/13/2021 2:13 PM CDT) Bermuda grass IgE <0.10 0.00 - 0.34 kUnits/L [facility] Comment:Testing performed by : [facility], [place]., [address] Blood 10/13/2021 2:13 PM CDT 10/14/2021 1:11 PM CDT Kate Carrasco MD LAB BLOOD ORDERABLES Final Re sult Performing Organization Address City/[facility] Co de Phone Number [facility] [phone] [address] Department [employer] [place] [address] * (ABNORMAL) Allergen Violet (tree) IgE (10/13/2021 2:13 PM CDT) Violet (tree) IgE 0.75(H) 0.00 - 0.34 kUnits/L [facility] Comment:Testing performed by : [facility], [place]., [address] Blood 10/13/2021 2:13 PM CDT 10/14/2021 1:11 PM CDT Kate Carrasco MD LAB BLOOD ORDERABLES Final Re sult Performing Organization Address City/[facility] Co de Phone Number [facility] [address] [address] Department [employer] [place] [address] * Allergen [place] english (tree) IgE (10/13/2021 2:13 PM CDT) [place] IgE 0.12 0.00 - 0.34 kUnits/L [facility] Comment:Testing performed by : [facility], [place]., [address] Blood 10/13/2021 2:13 PM CDT 10/14/2021 1:11 PM CDT Kate Carrasco MD LAB BLOOD ORDERABLES Final Re sult Performing Organization Address City/[facility] [place] [phone] [address] Department [employer] [place] [address] * Allergen [place] red (tree) IgE (10/13/2021 2:13 PM CDT) [place] IgE <0.10 0.00 - 0.34 kUnits/L [facility] Comment:Testing performed by : [facility], [place]., [address] Blood 10/13/2021 2:13 PM CDT 10/14/2021 1:11 PM CDT Kate Carrasco MD LAB BLOOD ORDERABLES Final Re sult Performing Organization Address [facility] Co de Phone Number [facility] [address] [address] Department of [employer] [place] [address] * Allergen [place] (tree) IgE (10/13/2021 2:13 PM CDT) [place] IgE <0.10 0.00 - 0.34 kUnits/L [facility] Comment:Testing performed by : [facility], [place]., [address] Blood 10/13/2021 2:13 PM CDT 10/14/2021 1:11 PM CDT Kate Carrasco MD LAB BLOOD ORDERABLES Final Re sult [facility] [address] [address] Department [employer] [place] [address] * Allergen Mountain juniper (tree) IgE (10/13/2021 2:13 PM CDT) Mountain juniper IgE 0.15 0.00 - 0.34 kUnits/L [facility] Comment:Testing performed by : [place] [address] Blood 10/13/2021 2:13 PM CDT 10/14/2021 1:11 PM CDT Kate Carrasco MD LAB BLOOD ORDERABLES Final Re sult Performing Organization Address [facility]/[place] [phone] [address] [facility] [employer] [place] [address] * Allergen Maple/Box elder (tree) IgE (10/13/2021 2:13 PM CDT) Maple/box elder IgE <0.10 0.00 - 0.34 kUnits/L [facility] Comment:Testing performed by : [facility], [place]., [address] Blood 10/13/2021 2:13 PM CDT 10/14/2021 1:11 PM CDT Result [facility] [place] Kate Carrasco MD LAB BLOOD ORDERABLES Final Re sult Performing Organization Address [facility] Co de Phone Number FRED [phone] [place] [address] * Allergen Elm (tree) IgE (10/13/2021 2:13 PM CDT) Elm IgE 0.10 0.00 - 0.34 kUnits/L [facility]ED Comment:Testing performed by : [facility], [place]., [address] Blood 10/13/2021 2:13 PM CDT 10/14/2021 1:11 PM CDT Result [facility] [place] Kate Carrasco MD LAB BLOOD ORDERABLES Final Re sult FRED [address] [address] [facility] [employer] [place] [address] * Allergen Birch common silver (tree) IgE (10/13/2021 2:13 PM CDT) Birch common silver IgE <0.10 0.00 - 0.34 kUnits/L [facility] LO Comment:Testing performed by : [facility], [facility], [place]., [address] Blood 10/13/2021 2:13 PM CDT 10/14/2021 1:11 PM CDT us Kate Carrasco MD LAB BLOOD [place] [phone] [address] Department [place] [address] documented in this encounter Visit Diagnoses Diagnosis Chronic rhinitis documented in this encounter Care Teams Technical Support Representative Relationship Specialty Start Date End Date Tristin Ghotra MD [address] [facility] [address] [place] [address] PCP - General 12/07/18 documented as of this encounter
--- OUTSIDE RECORDS SUMMARY | 2024-02-18 03:28 | XMS_ITS | Encounter Summary ---
Author Organization [facility] Healthcare Address [address] [place] [address] Care Team Providers Care Deputy Sheriff Court Services Name Role Phone Tristin Ghotra MD Primary Care Provider [phone] Encounter Details Date Type Department Care Team (Latest Contact Info) Description 12/01/2017 7:18 AM CDT Hospital Encounter [facility] OP Tristin Ghotra MD [address] [place] [address] Abnormal levels of other serum enzymes Social History Tobacco Use Types Packs/Day Years Used Date Smoking Tobacco: Never Alcohol Use Standard Drinks/Week Comments Yes 0 (1 standard drink = 0.6 oz pur e alcohol) Comments Unknown Sex and Gender Information Value Date Recorded Sex Assigned at Not on file 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 1.Status post cholecystectomy. ??Otherwise unremarkable right upper quadrant ultrasound. 2.Right nephrolithiasis, also present on the CT from 04/16/2012. ??Mild right pelviectasis. ??CT abdomen and pelvis if there is clinical concern for a right ureteral stone. THIS IS AN ELECTRONICALLY VERIFIED FINAL REPORT 12/01/2017 2:12 PM - Electronically signed by Isaac Jane D.O. D: ??12/01/2017 2:12 PM T: Report ID: [id number] Reading Location: ??[id number] [EOD] Narrative 12/01/2017 2:15 PM CDT EXAM DESCRIPTION: ??US Abdomen/Lmt Exam Spec Organ REASON FOR STUDY: ??Elevated LFTs. TECHNIQUE: ??Ultrasound of the right upper quadrant of the abdomen was performed with grayscale and color doppler. COMPARISON: ??MRI abdomen 10/30/2013. ??CT abdomen and pelvis 04/16/2012. FINDINGS: PANCREAS:Unremarkable. LIVER: Measures 16 cm. ??Normal echogenicity without a focal mass. ??Portal vein has a normal direction of flow. GALLBLADDER: Surgically absent. BILIARY: There is no intrahepatic or extrahepatic biliary ductal dilatation. Common bile duct measures 5 mm in diameter. RIGHT KIDNEY: Measures 12 cm in craniocaudal dimension. ??Normal cortical thickness and echogenicity. ??There is a 1.2 cm stone within the lower pole the right kidney. ??This was likely present on the prior CT from 04/16/2012. There is very mild pelviectasis. ??If there is concern for a right ureteral calculus dedicated CT would be recommended. OTHER: No other significant findings. Procedure Note Provider, MD Yahir - 07/06/2020 EXAM DESCRIPTION: US Abdomen/Lmt Exam Spec Organ REASON FOR STUDY: Elevated LFTs. TECHNIQUE: Ultrasound of the right upper quadrant of the abdomen was performed with grayscale and color doppler. COMPARISON: MRI abdomen 10/30/2013. CT abdomen and pelvis 04/16/2012. FINDINGS: PANCREAS:Unremarkable. LIVER: Measures 16 cm. Normal echogenicity without a focal mass. Portalvein has a normal direction of flow. GALLBLADDER: Surgically absent. BILIARY: There is no intrahepatic or extrahepatic biliary ductaldilatation. Common bile duct measures 5 mm in diameter. RIGHT KIDNEY: Measures 12 cm in craniocaudal dimension. Normal cortical thickness and echogenicity. There is a 1.2 cm stone within the lower polethe right kidney. This was likely present on the prior CT from 04/16/2012. There is very mild pelviectasis. If there is concern for a right ureteral calculus dedicated CT would be recommended. OTHER: No other significant findings. IMPRESSION: 1.Status post cholecystectomy. Otherwise unremarkable right upperquadrant ultrasound. 2.Right nephrolithiasis, also present on the CT from 04/16/2012. Mildright pelviectasis. CT abdomen and pelvis if there is clinical concern for aright ureteral stone. THIS IS AN ELECTRONICALLY VERIFIED FINAL REPORT 12/01/2017 2:12 PM - Electronically signed by Isaac Jane D.O. T: Report ID: [id number] Reading Location: [place] [id number] [EOD] us Tristin Ghotra MD IM US PROCEDURES Final Result documented in this encounter Visit Diagnoses Diagnosis Abnormal levels of other serum enzymes documented in this encounter Care Teams Deputy Sheriff Court Services Relationship Specialty Start Date End Date Tristin Ghotra MD [address] [facility] [address] [place] [address] PCP - General 10/11/13 12/06/18 documented as of this encounter
--- OUTSIDE RECORDS SUMMARY | 2024-02-18 03:28 | XMS_ITS | Encounter Summary ---
Author Organization [facility] Address [address] [place] [address] Care Team Providers Care Lead Installer Name Role Phone Tristin Ghotra MD Primary Care Provider [phone] Reason for Visit * Reason Onset Date Comments Request For Order(s) 10/14/2021 Encounter Details Date Type Department Care Team (Late st Contact Info) Description 10/14/2021 Telephone [facility] Pulmonology [address] [place] [address] [place] [address] [place] [address] [address] [place] [address] Request For Order(s) Social History Tobacco Use Types Packs/Day Years Used Date Smoking Tobacco: Never Alcohol Use Standard Drinks/Week Comments Yes 0 (1 standard drink = 0.6 oz pur e alcohol) Comments Unknown Sex and Gender Information Value Date Recorded Sex Assigned at Not on file Legal Sex Female 3:22 AM [employer] 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 * Telephone Encounter - Inga Camacho - 10/14/2021 1:18 PM CDT Patient went to get her inhaler and they told her that she will need a spacer for this but they also need an order for the spacer. stated it should be sent to [facility] in [place]. documented in this encounter Plan of Treatment Not on file documented as of this encounter Visit Diagnoses Not on filedocumented in this encounter Care Teams Lead Installer Relationship Specialty Start Date End Date Tristin Ghotra MD [address] [facility] [address] [place] [address] PCP - General 12/07/18 documented as of this encounter
--- OUTSIDE RECORDS SUMMARY | 2024-02-18 03:28 | XMS_ITS | Encounter Summary ---
Author Organization [facility] Address [address] [place] [address] Care Team Providers Care Wheel Inspector Name Role Phone Trsitin Ghotra MD Primary Care Provider [phone] Encounter Details Date Type Department Care Team (Late st Contact Info) Description 01/03/2022 Telephone [facility] Pulmonology [address] [place] [address] Kate Carrasco MD [address] [place] [address] [address] [place] [address] Social History Tobacco Use Types Packs/Day Years Used Date Smoking Tobacco: Never Alcohol Use Standard Drinks/Week Comments Yes 0 (1 standard drink = 0.6 oz pur e alcohol) Comments Unknown Sex and Gender Information Value Date Recorded Sex Assigned at Not on file Legal Sex Female 3:22 AM HYDROLOGY TEACHER Gender Identity Female 06/27/2022 9:35 PM CDT Sexual Orientation Not on file documented as of this encounter Ordered Prescriptions Prescription Sig Dispense Quantity Refills Last Filled Start Date End Date budesonide-formote roL (Symbicort) 80-4.5 mcg/actuation inhalerIndications :Mild persistent asthma without complication Inhale 2 puffs 2 (two) times a day Rinse mouth with water after use. Do not swallow. 10.7 g 3 01/07/2022 budesonide-formote roL (Symbicort) 80-4.5 mcg/actuation inhalerIndications :Mild persistent asthma without complication Inhale 2 puffs 2 (two) times a day as needed (coughing, shortness of breath, wheezing) Rinse mouth with water after use. Do not swallow. 3 each 3 01/03/2022 documented in this encounter Miscellaneous Notes * Addendum Note - Nino Mendiola MA - 01/07/2022 12:51 PM CSTAddended by: NINO MENDIOLA on: 01/07/2022 12:51 PM Modules accepted: Orders OLOGY TEACHER * Telephone Encounter - Mitra Marcial RN - 01/03/2022 4:23 PM HYDROLOGY TEACHER Medication verified and sent to pharmacy Last Visit: 11/30/2021 Follow Up: 03/01/2022 OLOGY TEACHER * Telephone Encounter - Uma Mckeon - 01/03/2022 3:18 PM CST Pt called asking for a 90 day prescription for Symbicort be sent to [facility] in [place]. OLOGY TEACHER documented in this encounter Plan of Treatment Not on file documented as of this encounter Visit Diagnoses Diagnosis Mild persistent asthma without complication documented in this encounter Discontinued Medications Medication Sig Discontinue Reason Start Date End Da te budesonide-formoteroL (Symbicort) 80-4.5 mcg/actuation inhalerIndications:Mild persistent asthma without complication Inhale 2 puffs 2 (two) times a day as needed (coughing, shortness of breath, wheezing) Rinse mouth with water after use. Do not swallow. Reorder 10/13/2021 01/03/2022 budesonide-formoteroL (Symbicort) 80-4.5 mcg/actuation inhalerIndications:Mild persistent asthma without complication Inhale 2 puffs 2 (two) times a day as needed (coughing, shortness of breath, wheezing) Rinse mouth with water after use. Do not swallow. 01/03/2022 01/07/2022 documented as of this encounter Care Teams Wheel Inspector Relationship Specialty Start Date End Date Tristin Ghotra MD [address] [facility] [address] [place] [address] PCP - General 12/07/18 documented as of this encounter
--- OUTSIDE RECORDS SUMMARY | 2024-02-18 03:29 | XMS_ITS | Encounter Summary ---
Author Organization [facility] Healthcare Address [address] [place] [address] Care Team Providers Care Dividing Machine Operator Name Role Phone Tristin Ghotra MD Primary Care Provider [phone] Encounter Details Date Type Department Care Team (Latest Contact Info) Description 10/09/2013 12:37 PM CDT Hospital Encounter [facility] Edgar Hager MD [address] [place] [address] Obstruction of bile duct Social History Tobacco Use Types Packs/Day Years Used Date Smoking Tobacco: Never Alcohol Use Standard Drinks/Week Comments Yes 0 (1 standard drink = 0.6 oz pur e alcohol) Comments Unknown Sex and Gender Information Value Date Recorded Sex Assigned at Not on file Legal 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 Female 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 Gender Identity Female 06/27/2022 9:35 PM CDT Sexual Orientation Not on file documented as of this encounter Medications at Time of Discharge aspirin 81 mg tablet take 1 tablet by oral route every day 0 0 09/27/2013 cholestyramine (QUESTRAN) 4 gram packet TAKE 1 PACKET 3 TIMES DAILY in juice 03/23/2012 06/28/2022 naltrexone (DEPADE) 50 mg tablet TAKE [...] Procedure Name Priority Date/Time Associated Diagnosis Comments CBC WITHOUT DIFFERENTIAL Routine 10/09/2013 1:09 PM CDT BILIRUBIN, TOTAL AND DIRECT Routine 10/09/2013 1:09 PM CDT ALT Routine 10/09/2013 1:09 PM CDT AST Routine 10/09/2013 1:09 PM CDT ALKALINE PHOSPHATASE Routine 10/09/2013 1:09 PM CDT LIPASE Routine 10/09/2013 1:09 PM CDT AMYLASE Routine 10/09/2013 1:09 PM CDT ALBUMIN Routine 10/09/2013 1:09 PM CDT documented in this encounter Results * (ABNORMAL) CBC without differential (10/09/2013 1:09 PM CDT) WBC 4.9 4.6 - 10.2 x10 3/ul 10/09/2013 1:28 PM CDT [employer] HISTORICAL RESULTS RBC 3.72(L) 3.76 - 4.80 x10 6/ul 10/09/2013 1:28 PM CDT [employer] HISTORICAL RESULTS Hemoglobin 12.1 11.0 - 15.0 g/dl 10/09/2013 1:28 PM CDT [facility] [employer] HISTORICAL RESULTS Hct 35.2 33.0 - 43.0 % 10/09/2013 1:28 PM CDT [facility] [employer] HISTORICAL RESULTS MCV 94.6 80.0 - 97.0 fl 10/09/2013 1:28 PM CDT [facility] [employer] HISTORICAL RESULTS MCH 32.5(H) 27.0 - 31.2 pg 10/09/2013 1:28 PM CDT [facility] [employer] HISTORICAL RESULTS MCHC 34.4 31.8 - 35.4 g/dl 10/09/2013 1:28 PM CDT [facility] [employer] HISTORICAL RESULTS RDW 11.8 11.6 - 14.8 % 10/09/2013 1:28 PM CDT [facility] HISTORICAL RESULTS Plt Count 212 124 - 400 x10 3/ul 10/09/2013 1:28 PM CDT [facility] HISTORICAL RESULTS MPV 11.5(H) 7.4 - 10.4 fl 10/09/2013 1:28 PM CDT [facility] HISTORICAL RESULTS 10/09/2013 1:09 PM CDT 10/09/2013 1:23 PM CDT us Edgar Hager MD LAB BLOOD ORDERABLES Final Resu lt Performing Organization Address [facility] Co de Phone Number [facility] HISTORICAL RESULTS * Lipase (10/09/2013 1:09 PM CDT) Pathologist [facility] Lipase 27 13 - 60 U/L 10/09/2013 1:59 PM CDT [facility] HISTORICAL RESULTS 10/09/2013 1:09 PM CDT 10/09/2013 1:23 PM CDT us Edgar Hager MD LAB BLOOD ORDERABLES Final Resu lt Performing Organization Address [facility] Co de Phone Number [facility] HISTORICAL RESULTS * Amylase (10/09/2013 1:09 PM CDT) Pathologist [facility] Amylase 74 28 - 100 U/L 10/09/2013 1:59 PM CDT [facility] HISTORICAL RESULTS 10/09/2013 1:09 PM CDT 10/09/2013 1:23 PM CDT Edgar Hager MD LAB BLOOD ORDERABLES Final Resu lt Performing Organization Address City/[facility] Co de Phone Number [facility] HISTORICAL RESULTS * (ABNORMAL) Alkaline phosphatase (10/09/2013 1:09 PM CDT) Pathologist [facility] Alkaline Phosphatase 277(H) 35 - 104 U/L 10/09/2013 1:59 PM CDT [facility] HISTORICAL RESULTS 10/09/2013 1:09 PM CDT 10/09/2013 1:23 PM CDT Result [facility] us Edgar Hager MD LAB BLOOD ORDERABLES Final Resu lt Performing Organization Address [facility] Phone Number [facility] HISTORICAL RESULTS * (ABNORMAL) ALT (10/09/2013 1:09 PM CDT) ALT 183(H) 0 - 33 U/L 10/09/2013 1:59 PM CDT [facility] HISTORICAL RESULTS 10/09/2013 1:09 PM CDT 10/09/2013 1:23 PM CDT Edgar Hager MD LAB BLOOD ORDERABLES Final Resu lt Performing Organization Address [facility] Phone Number [facility] HISTORICAL RESULTS * (ABNORMAL) AST (10/09/2013 1:09 PM CDT) AST 65(H) 0 - 32 U/L 10/09/2013 1:59 PM CDT [facility] HISTORICAL RESULTS 10/09/2013 1:09 PM CDT 10/09/2013 1:23 PM CDT Result [facility] Edgar Hager MD LAB BLOOD ORDERABLES Final Resu lt Performing Organization Address [facility] Phone Number [facility] HISTORICAL RESULTS * Bilirubin, total and direct (10/09/2013 1:09 PM CDT) Total Bilirubin 0.6 0.0 - 1.2 mg/dL 10/09/2013 1:59 PM CDT [facility] HISTORICAL RESULTS Direct Bilirubin < 0.20 0.00 - 0.25 mg/dL 10/09/2013 1:59 PM CDT [facility] HISTORICAL RESULTS 10/09/2013 1:09 PM CDT 10/09/2013 1:23 PM CDT Result [facility] us Edgar Hager MD LAB BLOOD ORDERABLES Final Resu lt Performing Organization Address [facility]/ZIP Co de Phone Number [facility] HISTORICAL RESULTS * Albumin (10/09/2013 1:09 PM CDT) Albumin 4.4 3.5 - 5.2 g/dL 10/09/2013 1:59 PM CDT [facility] HISTORICAL RESULTS 10/09/2013 1:09 PM CDT 10/09/2013 1:23 PM CDT us Edgar Hager MD LAB BLOOD ORDERABLES Final Resu lt Performing Organization Address [facility] Co de Phone Number [facility] HISTORICAL RESULTS documented in this encounter Visit Diagnoses Diagnosis Obstruction of bile duct documented in this encounter Care Teams Dividing Machine Operator Relationship Specialty Start Date End Date Tristin Ghotra MD [address] [place] [address] PCP - General 09/27/13 10/10/13 documented as of this encounter
--- OUTSIDE RECORDS SUMMARY | 2024-02-18 03:29 | XMS_ITS | Encounter Summary ---
Author Organization [facility] Facility Care Team Providers Care Assistant Professor Of Chemistry Name Role Phone Unavailable Primary Care Provider Unavailabl e Encounter Details Date Type Department Care Team (Late st Contact Info) Description 01/18/2012 - 02/20/2012 11:59 PM X RAY TECH Hospital Encounter [facility] Kendra Petty MD [address] [place] [address] Social History Tobacco Use Types Packs/Day Years Used Date Smoking Tobacco: Never Assessed Comments Unknown Sex and Gender Information Value Date Recorded Sex Assigned at Not on file Legal Sex Female 3:22 AM X RAY TECH Gender Identity Female 06/27/2022 9:35 PM CDT Sexual Orientation Not on file documented as of this encounter Plan of Treatment Not on file documented as of this encounter Visit Diagnoses Not on filedocumented in this encounter
--- OUTSIDE RECORDS SUMMARY | 2024-02-18 03:29 | XMS_ITS | Encounter Summary ---
Author Organization [facility] Healthcare Address [address] [place] [address] Care Team Providers Care Repair Supervisor Name Role Phone Unavailable Primary Care Provider Unavailabl e Encounter Details Date Type Department Care Team (Latest Contact Info) Description 03/27/2012 1:21 PM MACHINE WIPER - 03/29/2012 1:00 PM MACHINE WIPER Hospital Encounter [facility] Edgar Hager MD [address] [place] [address] Other specified disorders of biliary tract Social History Tobacco Use Types Packs/Day Years Used Date Smoking Tobacco: Never Assessed Comments Unknown Sex and Gender Information Value Date Recorded Sex Assigned at Not on file Legal Sex Female 3:22 AM MACHINE WIPER Gender Identity Female 06/27/2022 9:35 PM CDT Sexual Orientation Not on file documented as of this encounter Last Filed Vital Signs Vital Sign Reading Time Taken Comments Blood Pressure 134/77 03/29/2012 7:33 AM MACHINE WIPER Pulse 68 03/29/2012 7:33 AM MACHINE WIPER Temperature 36.8 ??C (98.3 ??F) 03/29/2012 7:33 AM CS T Respiratory Rate - - Oxygen Saturation 93% 03/29/2012 7:33 AM MACHINE WIPER Inhaled Oxygen Concentration - - Weight 63.5 kg (140 lb) 03/29/2012 7:33 AM MACHINE WIPER Height 175.3 cm (5' 9 ) 03/29/2012 7:33 AM MACHINE WIPER Body Mass Index 20.67 03/29/2012 7:33 AM MACHINE WIPER documented in this encounter Medications at Time of Discharge cholestyramine (QUESTRAN) 4 gram packet TAKE 1 PACKET 3 TIMES DAILY in juice 03/23/2012 06/28/2022 documented as of this encounter Plan of Treatment Not on file documented as of this encounter Procedures Procedure Name Priority Date/Time Associated Diagnosis Comments OXYGEN SATURATION, ARTERIAL Routine 03/29/2012 7:41 AM MACHINE WIPER CBC WITH AUTO DIFFERENTIAL Routine 03/29/2012 7:02 AM MACHINE WIPER OXYGEN SATURATION, ARTERIAL Routine 03/28/2012 1:00 PM MACHINE WIPER OXYGEN SATURATION, ARTERIAL Routine 03/28/2012 7:31 AM MACHINE WIPER documented in this encounter Results * Oxygen saturation, arterial (03/29/2012 7:41 AM MACHINE WIPER) Specimen Type Oximeter 03/29/2012 8:59 AM MACHINE WIPER [employer] HISTORICAL RESULTS Puncture Site FINGER 03/29/2012 8:59 AM [facility] [employer] HISTORICAL RESULTS O2 Sat Pulse Oximetry 96.0 >=90.0 % 03/29/2012 8:59 AM MACHINE WIPER [facility] [employer] HISTORICAL RESULTS FiO2 21.0 % 03/29/2012 8:59 AM [facility] [employer] HISTORICAL RESULTS Dealmaker ID [id number] 03/29/2012 8:59 AM [facility] [employer] HISTORICAL RESULTS 03/29/2012 7:41 AM MACHINE WIPER 03/29/2012 8:58 AM MACHINE WIPER Edgar Hager MD LAB BLOOD ORDERABLES Final Resu lt [facility] [employer] HISTORICAL RESULTS * (ABNORMAL) CBC with auto differential (03/29/2012 7:02 AM MACHINE WIPER) WBC 7.8 4.6 - 10.2 x10 3/ul 03/29/2012 8:02 AM [facility] [employer] HISTORICAL RESULTS RBC 3.55(L) 3.76 - 4.80 x10 6/ul 03/29/2012 8:02 AM [facility] [employer] HISTORICAL RESULTS Hemoglobin 11.4 11.0 - 15.0 g/dl 03/29/2012 8:02 AM MACHINE WIPER [facility] [employer] HISTORICAL RESULTS Hct 33.8 33.0 - 43.0 % 03/29/2012 8:02 AM MACHINE WIPER [facility] [employer] [facility] RES[facility] MCV 95.2 80.0 - 97.0 fl 03/29/2012 8:02 AM [facility] HISTOR[facility] RESULTS MCH 32.1(H) 27.0 - 31.2 pg 03/29/2012 8:02 AM [employer] [facility] [employer] HISTORICAL RESULTS MCHC 33.7 31.8 - 35.4 g/dl 03/29/2012 8:02 AM [employer] [facility] [employer] HISTORICAL RESULTS RDW 12.8 11.6 - 14.8 % 03/29/2012 8:02 AM [employer] [facility] [employer] HISTORICAL RESULTS Plt Count 205 124 - 400 x10 3/ul 03/29/2012 8:02 AM [employer] [facility] [employer] HISTORICAL RESULTS MPV 12.4(H) 7.4 - 10.4 fl 03/29/2012 8:02 AM [employer] [facility] [employer] HISTORICAL RESULTS Differential Method AUTOMATED DIFF --------- -- 03/29/2012 8:02 AM [employer] [facility] [employer] HISTORICAL RESULTS Neut % 72.2 37.0 - 85.0 % 03/29/2012 8:02 AM [employer] [facility] [employer] HISTORICAL RESULTS Immature Gran % 0.3 0.0 - 3.0 % 03/29/2012 8:02 AM [employer] [facility] [employer] HISTORICAL RESULTS Lymph % 19.7 5.0 - 45.0 % 03/29/2012 8:02 AM [employer] [facility] [employer] [facility] HISTORICAL RESULTS Cloud % 6.4 3.0 - 15.0 % 03/29/2012 8:02 AM [employer] [facility] [employer] HISTORICAL RESULTS Eos % 1.3 0.0 - 7.0 % 03/29/2012 8:02 AM [employer] [facility] [employer] HISTORICAL RESULTS Baso % 0.1 0.0 - 2.0 % 03/29/2012 8:02 AM [employer] [facility] [employer] HISTORICAL RESULTS ABSOLUTE COUNTS ABSOLUTE COUNTS --------- -- 03/29/2012 8:02 AM [employer] [facility] [employer] HISTORICAL RESULTS Absolute Neuts (auto) 5.6 1.7 - 8.7 x10 3/ul 03/29/2012 8:02 AM [employer] [facility] [employer] HISTORICAL RESULTS Immature Gran # 0.0 0.0 - 0.3 x10 3/ul 03/29/2012 8:[address] [facility] HISTORICAL RESULTS Absolute Lymphs (auto) 1.5 0.2 - 4.6 x10 3/ul 03/29/2012 8:02 AM MACHINE WIPER [facility] HISTORICAL RESULTS Absolute Monos (auto) 0.5 0.1 - 1.5 x10 3/ul 03/29/2012 8:[address] [facility] HISTORICAL RESULTS Absolute Eos (auto) 0.1 0.0 - 0.7 x10 3/ul 03/29/2012 8:02 AM MACHINE WIPER [facility] HISTORICAL RESULTS Absolute Basos (auto) 0.0 0.0 - 0.2 x10 3/ul 03/29/2012 8:[address] [facility] HISTORICAL RESULTS 03/29/2012 7:02 AM MACHINE WIPER 03/29/2012 7:36 AM MACHINE WIPER us Allyssa Tucker MD LAB BLOOD ORDERABLES Final Result [facility] HISTORICAL RESULTS * Oxygen saturation, arterial (03/28/2012 1:00 PM MACHINE WIPER) Specimen Type Oximeter 03/28/2012 2:[address] [facility] HISTORICAL RESULTS Puncture Site FINGER 03/28/2012 2:[address] [facility] HISTORICAL RESULTS O2 Sat Pulse Oximetry 97.0 >=90.0 % 03/28/2012 2:[address] [facility] HISTORICAL RESULTS FiO2 21.0 % 03/28/2012 2:[address] [facility] HISTORICAL RESULTS [employer] ARK 03/28/2012 2:[address] [facility] HISTORICAL RESULTS 03/28/2012 1:00 PM MACHINE WIPER 03/28/2012 2:10 PM MACHINE WIPER us Edgar Hager MD LAB BLOOD ORDERABLES Final Resu lt Performing Organization Address [facility]/State/ZIP Co de Phone Number [facility] HISTORICAL RESULTS * Oxygen saturation, arterial (03/28/2012 7:31 AM MACHINE WIPER) Specimen Type Oximeter 03/28/2012 8:09 AM MACHINE WIPER [facility] HISTORICAL RESULTS Puncture Site FINGER 03/28/2012 8:09 AM MACHINE WIPER [facility] HISTORICAL RESULTS O2 Sat Pulse Oximetry 97.0 >=90.0 % 03/28/2012 8:09 AM MACHINE WIPER [facility] HISTORICAL RESULTS FiO2 21.0 % 03/28/2012 8:09 AM MACHINE WIPER [facility] HISTORICAL RESULTS Dealmaker ID AJG 03/28/2012 8:09 AM MACHINE WIPER [facility] HISTORICAL RESULTS 03/28/2012 7:31 AM MACHINE WIPER 03/28/2012 8:09 AM MACHINE WIPER us Edgar Hager MD LAB BLOOD ORDERABLES Final Resu lt [facility] HISTORICAL RESULTS documented in this encounter Visit Diagnoses Diagnosis Other specified disorders of biliary tract documented in this encounter
--- OUTSIDE RECORDS SUMMARY | 2024-02-18 03:29 | XMS_ITS | Encounter Summary ---
Author Organization [facility] Facility Care Team Providers Care Textiles Sales Representative Name Role Phone Unavailable Primary Care Provider Unavailabl e Encounter Details Date Type Department Care Team (Late st Contact Info) Description 03/21/2012 - 03/21/2012 11:59 PM RAILROAD FIRER Hospital Encounter [facility] Jorge Crowe MD [address] [place] [address] Other specified disorders of biliary tract; Other specified abnormal findings of blood chemistry Social History Tobacco Use Types Packs/Day Years Used Date Smoking Tobacco: Never Assessed Comments Unknown Sex and Gender Information Value Date Recorded Sex Assigned at Not on file Legal Sex Female 3:22 AM RAILROAD FIRER Gender Identity Female 06/27/2022 9:35 PM CDT Sexual Orientation Not on file documented as of this encounter Plan of Treatment Not on file documented as of this encounter Procedures Procedure Name Priority Date/Time Associated Diagnosis Comments 3-D RENDERING ON MODALITY Routine 03/21/2012 2:20 PM RAILROAD FIRER MRI ABDOMEN W WO CONTRAST Routine 03/21/2012 2:20 PM RAILROAD FIRER BLOOD CREATININE, POINT OF CARE Routine 03/21/2012 1:33 PM RAILROAD FIRER DISCHARGE LABORATORY CUMULATIVE REPORT Routine 03/21/2012 12:00 AM RAILROAD FIRER documented in this encounter Results * 3-D Rendering on Modality (03/21/2012 2:20 PM RAILROAD FIRER) Anatomical Region Laterality Modality N/A Magnetic Resonan ce 03/21/2012 2:20 PM RAILROAD FIRER Narrative 03/22/2012 4:35 PM RAILROAD FIRER EVAN AVILA M.D. MELANIE ALBERT M.D. FINAL REPORT The radiology attending physician has personally reviewed this study, and has reviewed and/or edited this written report and agrees with it. ACC# ??Date Time ??Exam [id number] Mar 21, 2012 14:20:00 [id number] MRI Abdomen wwo contrast [id number] Mar 21, 2012 14:20:00 [id number] 3-D Rendering on Modality EXAMINATION: ?? 1. ??MAGNETIC RESONANCE IMAGING OF THE ABDOMEN WITH AND WITHOUT CONTRAST 2. THREE DIMENSIONAL RECONSTRUCTION OF THE BILIARY TREE AND PANCREATIC DUCT HISTORY: Cholestasis, elevated liver function tests. TECHNIQUE: Magnetic resonance imaging of the abdomen was performed prior to and following the uneventful administration of intravenous Gadolinium contrast. ??The raw data was processed on the scanner by the technologist for 3 dimensional reconstructions of the intrahepatic ducts, extrahepatics ducts, and pancreatic duct. Protocol: Liver MRCP Estimated GFR: >60 ml/min/1.73 meters squared Creatinine: 0.6 mg/dL Contrast: [employer]ark, 12 ml FINDINGS: Comparison is made to prior abdominal MRI dated 04/25/2009. Liver: There is no nodularity or steatosis of the liver. Hepatic vasculature: Classic hepatic arterial anatomy. The portal vein and hepatic veins are patent. Bile ducts: There is minimal intrahepatic duct dilatation within segments 4 and 5. On MRCP images (series 11), there is mild irregularity of left intrahepatic ducts. Gallbladder: Absent. Pancreas: Normal. No ductal dilatation. Prominent ventral anlage of the pancreas is unchanged. There is a partially duplicated left renal collecting system. IMPRESSION: ?? Minimal left intrahepatic duct irregularity with mild intrahepatic ductal dilatation within segments 4 and 5. These are nonspecific findings. Requested By: Jorge Crowe ??Katia Dictated By: ?? MELANIE ALBERT M.D. ??on Mar 21 2012 ??3:24P This document has been electronically signed by: EVAN AVILA M.D. on Mar 22 2012 ??4:34P Procedure Note Provider, MD Yahir - 06/10/2016 EVAN AVILA M.D. MELANIE ALBERT M.D. FINAL REPORT The radiology attending physician has personally reviewed this study, and has reviewed and/or edited this written report and agrees with it. ACC# Date Time Exam [id number] Mar 21, 2012 14:20:00 [id number] MRI Abdomen wwo contrast [id number] Mar 21, 2012 14:20:00 [id number] 3-D Rendering on Modality EXAMINATION: 1. MAGNETIC RESONANCE IMAGING OF THE ABDOMEN WITH AND WITHOUT CONTRAST 2. THREE DIMENSIONAL RECONSTRUCTION OF THE BILIARY TREE AND PANCREATIC DUCT HISTORY: Cholestasis, elevated liver function tests. TECHNIQUE: Magnetic resonance imaging of the abdomen was performed prior to and following the uneventful administration of intravenous Gadolinium contrast. The raw data was processed on the scanner by the technologist for 3 dimensional reconstructions of the intrahepatic ducts, extrahepatics ducts, and pancreatic duct. Protocol: Liver MRCP Estimated GFR: >60 ml/min/1.73 meters squared Creatinine: 0.6 mg/dL Contrast: Optimark, 12 ml FINDINGS: Comparison is made to prior abdominal MRI dated 04/25/2009. Liver: There is no nodularity or steatosis of the liver. Hepatic vasculature: Classic hepatic arterial anatomy. The portal vein and hepatic veins are patent. Bile ducts: There is minimal intrahepatic duct dilatation within segments 4 and 5. On MRCP images (series 11), there is mild irregularity of left intrahepatic ducts. Gallbladder: Absent. Pancreas: Normal. No ductal dilatation. Prominent ventral anlage of the pancreas is unchanged. There is a partially duplicated left renal collecting system. IMPRESSION: Minimal left intrahepatic duct irregularity with mild intrahepatic ductal dilatation within segments 4 and 5. These are nonspecific findings. Requested By: Jorge Crowe M.D. Dictated By: MELANIE ALBERT M.D. on Mar 21 2012 3:24P This document has been electronically signed by: EVAN AVILA M.D. on Mar 22 2012 4:34P us Historical Provider MD [facility] MRI PROCEDURES Final Result * MRI Abdomen WWO Contrast (03/21/2012 2:20 PM RAILROAD FIRER) Anatomical Region Laterality Modality Body N/A Magnetic Resonan ce 03/21/2012 2:20 PM RAILROAD FIRER Narrative 03/22/2012 4:35 PM RAILROAD FIRER EVAN AVILA M.D. MELANIE ALBERT M.D. FINAL REPORT The radiology attending physician has personally reviewed this study, and has reviewed and/or edited this written report and agrees with it. ACC# ??Date Time ??Exam [id number] Mar 21, 2012 14:20:00 [id number] MRI Abdomen wwo contrast [id number] Mar 21, 2012 14:20:00 [id number] 3-D Rendering on Modality EXAMINATION: ?? 1. ??MAGNETIC RESONANCE IMAGING OF THE ABDOMEN WITH AND WITHOUT CONTRAST 2. THREE DIMENSIONAL RECONSTRUCTION OF THE BILIARY TREE AND PANCREATIC DUCT HISTORY: Cholestasis, elevated liver function tests. TECHNIQUE: Magnetic resonance imaging of the abdomen was performed prior to and following the uneventful administration of intravenous Gadolinium contrast. ??The raw data was processed on the scanner by the technologist for 3 dimensional reconstructions of the intrahepatic ducts, extrahepatics ducts, and pancreatic duct. Protocol: Liver MRCP Estimated GFR: >60 ml/min/1.73 meters squared Creatinine: 0.6 mg/dL Contrast: [employer], 12 ml FINDINGS: Comparison is made to prior abdominal MRI dated 04/25/2009. Liver: There is no nodularity or steatosis of the liver. Hepatic vasculature: Classic hepatic arterial anatomy. The portal vein and hepatic veins are patent. Bile ducts: There is minimal intrahepatic duct dilatation within segments 4 and 5. On MRCP images (series 11), there is mild irregularity of left intrahepatic ducts. Gallbladder: Absent. Pancreas: Normal. No ductal dilatation. Prominent ventral anlage of the pancreas is unchanged. There is a partially duplicated left renal collecting system. IMPRESSION: ?? Minimal left intrahepatic duct irregularity with mild intrahepatic ductal dilatation within segments 4 and 5. These are nonspecific findings. Requested By: Jorge Crowe ??[place] Dictated By: ?? MELANIE ALBERT M.D. ??on Mar 21 2012 ??3:24P This document has been electronically signed by: EVAN AVILA M.D. on Mar 22 2012 ??4:34P Procedure Note Provider, MD Yahir - 06/10/2016 Katia FAN M.D. FINAL REPORT The radiology attending physician has personally reviewed this study, and has reviewed and/or edited this written report and agrees with it. ACC# Date Time Exam [id number] Mar 21, 2012 14:20:00 [id number] MRI Abdomen wwo contrast [id number] Mar 21, 2012 14:20:00 [id number] 3-D Rendering on Modality EXAMINATION: 1. MAGNETIC RESONANCE IMAGING OF THE ABDOMEN WITH AND WITHOUT CONTRAST 2. THREE DIMENSIONAL RECONSTRUCTION OF THE BILIARY TREE AND PANCREATIC DUCT HISTORY: Cholestasis, elevated liver function tests. TECHNIQUE: Magnetic resonance imaging of the abdomen was performed prior to and following the uneventful administration of intravenous Gadolinium contrast. The raw data was processed on the scanner by the technologist for 3 dimensional reconstructions of the intrahepatic ducts, extrahepatics ducts, and pancreatic duct. Protocol: Liver MRCP Estimated GFR: >60 ml/min/1.73 meters squared Creatinine: 0.6 mg/dL Contrast: Optimark, 12 ml FINDINGS: Comparison is made to prior abdominal MRI dated 04/25/2009. Liver: There is no nodularity or steatosis of the liver. Hepatic vasculature: Classic hepatic arterial anatomy. The portal vein and hepatic veins are patent. Bile ducts: There is minimal intrahepatic duct dilatation within segments 4 and 5. On MRCP images (series 11), there is mild irregularity of left intrahepatic ducts. Gallbladder: Absent. Pancreas: Normal. No ductal dilatation. Prominent ventral anlage of the pancreas is unchanged. There is a partially duplicated left renal collecting system. IMPRESSION: Minimal left intrahepatic duct irregularity with mild intrahepatic ductal dilatation within segments 4 and 5. These are nonspecific findings. Requested By: Jorge Crowe M.D. Dictated By: MELANIE ALBERT M.D. on Mar 21 2012 3:24P This document has been electronically signed by: EVAN AVILA M.D. on Mar 22 2012 4:34P us Historical Provider MD [facility] MRI PROCEDURES Final Result * Blood creatinine, point of care (03/21/2012 1:33 PM RAILROAD FIRER) Creatinine, POC, bld 0.7 0.6 - 1.1 mg/dl HISTORICAL RESULTS Blood specimen (specimen) 03/21/2012 1:33 PM RAILROAD FIRER us Jorge Crowe MD LAB BLOOD ORDERABLES F inal Result HISTORICAL RESULTS * Discharge Laboratory Cumulative Report (03/21/2012 12:00 AM RAILROAD FIRER) 03/21/2012 Narrative HISTORICAL RESULTS - 03/21/2012 3:17 PM RAILROAD FIRER ?[facility] ?Department of Laboratories ? [address] [facility] [place] ? [place] [address] Patient Name: ??PAOLA MCKEON V Med Rec Number: [id number] Fin Number: ?[id number] Date: ?1975 Sex/Age: ? Female 37 years Admit Date: ?03/21/2012 Discharge Date: 03/21/2012 Doctor: ?Jorge Crowe Facility: ?[facility] Location: ?[facility] Chart Printed: 03/21/2012 15:17 ?? * Abnormal ?? C Critical ?? f Footnote ?? ^ Corrected ?? L Low ?? H High ? i Interp Data ?? @ Reference Lab ?Chart Type:Cumulative ?POINT OF CARE TESTS ? Chemistry ?Test: Creat iPOC ? Reference: [0.6-1.1] ? Units: mg/dL 03/21/2012 ?? 13:33:00 ?? 0.7 us Historical Provider LAB BLOOD ORDERABLES Lala love Result HISTORICAL RESULTS documented in this encounter Visit Diagnoses Diagnosis Other specified disorders of biliary tract Other specified abnormal findings of blood chemistry documented in this encounter
--- OUTSIDE RECORDS SUMMARY | 2024-02-18 03:29 | XMS_ITS | Encounter Summary ---
Author Organization [facility] Healthcare Address [address] [place] [address] Care Team Providers Care Welfare Worker Name Role Phone Unavailable Primary Care Provider Unavailabl e Encounter Details Date Type Department Care Team (Latest Contact Info) Description 03/27/2012 7:56 AM CUSTOMER CARE TEAM COACH Hospital Encounter [facility] Edgar Hager MD [address] [place] [address] Abdominal pain; Other specified abnormal findings of blood chemistry; Nausea without vomiting; Pruritic disorder; Celiac artery compression syndrome (CMS/HCC) (HCC); Other acquired absence of organ Social History Tobacco Use Types Packs/Day Years Used Date Smoking Tobacco: Never Assessed Comments Unknown Sex and Gender Information Value Date Recorded Sex Assigned at Not on file Legal Sex Female 3:22 AM CUSTOMER CARE TEAM COACH Gender Identity Female 06/27/2022 9:35 PM CDT [...] Associated Diagnosis Comments US ABDOMEN LIMITED Routine 03/27/2012 8: 26 AM CUSTOMER CARE TEAM COACH US AORTA IVC Routine 03/27/2012 7:59 AM CUSTOMER CARE TEAM COACH documented in this encounter Results * US Abdomen Limited (03/27/2012 8:26 AM CUSTOMER CARE TEAM COACH) Anatomical Region Laterality Modality Abdomen N/A Ultrasound 03/27/2012 8:26 AM CUSTOMER CARE TEAM COACH Impressions 03/27/2012 10:19 AM CUSTOMER CARE TEAM COACH ?? Status post cholecystectomy. Right upper quadrant ultrasound is within normal limits THIS IS AN ELECTRONICALLY VERIFIED REPORT 03/27/2012 10:15 AM: ??Cecilio Lizarraga M.D. Cecilio Lizarraga M.D. NC:nc 10:15 AM 10:15 AM [EOD] Narrative 03/27/2012 10:19 AM CUSTOMER CARE TEAM COACH EXAMINATION: ??Right upper quadrant ultrasound HISTORY: ??Nausea, abnormal liver function tests. ??Status post cholecystectomy. TECHNIQUE: ??Bolanos scale, color Doppler with wave form analysis COMPARISON: ??None available FINDINGS: Status post cholecystectomy. The ultrasound images demonstrate no ?? biliary dilatation or liver mass identified. ??No cholecystitis. Visible pancreas is normal. Right kidney is unremarkable. ?? Procedure Note Provider, MD Yahir - 07/06/2020 EXAMINATION: Right upper quadrant ultrasound HISTORY: Nausea, abnormal liver function tests. Status postcholecystectomy. TECHNIQUE: Bolanos scale, color Doppler with wave form analysis COMPARISON: None available FINDINGS: Status post cholecystectomy. The ultrasound images demonstrateno biliary dilatation or liver mass identified. No cholecystitis. Visible pancreas is normal. Right kidney is unremarkable. IMPRESSION: Status post cholecystectomy. Right upper quadrant ultrasound is within normal limits THIS IS AN ELECTRONICALLY VERIFIED REPORT 03/27/2012 10:15 AM: Cecilio Lizarraga M.D. Cecilio Lizarraga M.D. NC:nc 10:15 AM 10:15 AM [EOD] us Edgar Hager MD [facility] US PROCEDURES Final Result * US Aorta IVC (03/27/2012 7:59 AM CUSTOMER CARE TEAM COACH) Anatomical Region Laterality Modality Abdomen N/A Ultrasound 03/27/2012 7:59 AM CUSTOMER CARE TEAM COACH Narrative 03/28/2012 1:43 PM CUSTOMER CARE TEAM COACH DATE: ??03/27/2012 TAPE NUMBER: REASON FOR EXAM: DATE 03/27/2012. This is a mesenteric duplex. REASON Abdominal pain. FINDINGS The aortic velocity is 97. The superior mesenteric artery velocity is 319 and the celiac artery velocity is 253. 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 RC/LC TD: ??03/28/2012 08:25:06 Job #: ??[id number] Pedro Richards MD [EOD] Procedure Note Provider, MD Yahir - 07/06/2020 DATE: 03/27/2012 TAPE NUMBER: REASON FOR EXAM: DATE 03/27/2012. This is a mesenteric duplex. REASON Abdominal pain. FINDINGS The aortic velocity is 97. The superior mesenteric artery velocity is 319and the celiac artery velocity is 253. 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
--- OUTSIDE RECORDS SUMMARY | 2024-02-18 03:29 | XMS_ITS | Encounter Summary ---
Author Organization [facility] Facility Care Team Providers Care Groundman Name Role Phone Unavailable Primary Care Provider Unavailabl e Encounter Details Date Type Department Care Team (Late st Contact Info) Description 01/10/2012 - 01/10/2012 11:59 PM AZURE DEVELOPER Hospital Encounter [facility] Jorge Crowe MD [address] [place] [address] Pruritic disorder Social History Tobacco Use Types Packs/Day Years Used Date Smoking Tobacco: Never Assessed Comments Unknown Sex and Gender Information Value Date Recorded Sex Assigned at Not on file Legal Sex Female 3:22 AM AZURE DEVELOPER Gender Identity Female 06/27/2022 9:35 PM CDT Sexual Orientation Not on file documented as of this encounter Plan of Treatment Not on file documented as of this encounter Visit Diagnoses Diagnosis Pruritic disorder Unspecified pruritic disorder documented in this encounter
--- OUTSIDE RECORDS SUMMARY | 2024-02-18 03:29 | XMS_ITS | Encounter Summary ---
Author Organization [facility] Facility Care Team Providers Care Audio Visual Equipment Rental Clerk Name Role Phone Unavailable Primary Care Provider Unavailabl e Encounter Details Date Type Department Care Team (Late st Contact Info) Description 05/01/2009 - 05/01/2009 11:59 PM FACILITIES CUSTODIAN Hospital Encounter [facility] Jorge Crowe MD [address] [place] [address] Pruritic disorder; Calculus of gallbladder Social History Tobacco Use Types Packs/Day Years Used Date Smoking Tobacco: Never Assessed Comments Unknown Sex and Gender Information Value Date Recorded Sex Assigned at Not on file Legal Sex Female 3:22 AM FACILITIES CUSTODIAN Gender Identity Female 06/27/2022 9:35 PM CDT Sexual Orientation Not on file documented as of this encounter Plan of Treatment Not on file documented as of this encounter Visit Diagnoses Diagnosis Pruritic disorder Unspecified pruritic disorder Calculus of gallbladder Calculus of gallbladder without mention of cholecystitis or obstruction documented in this encounter
--- OUTSIDE RECORDS SUMMARY | 2024-02-18 03:29 | XMS_ITS | Encounter Summary ---
Author Organization [facility] Healthcare Address [address] [place] [address] Care Team Providers Care Steam Room Attendant Name Role Phone Unavailable Primary Care Provider Unavailabl e Encounter Details Date Type Department Care Team (Latest Contact Info) Description 06/13/2012 4:04 PM CDT Hospital Encounter [facility] Edgar Hager MD [address] [place] [address] Abnormal levels of other serum enzymes; Pruritic disorder; Abdominal pain Social History Tobacco Use Types Packs/Day Years Used Date Smoking Tobacco: Never Assessed Comments Unknown Sex and Gender Information Value Date Recorded Sex Assigned at Not on file Legal Sex Female 3:22 AM LEADERSHIP DEVELOPMENT MANAGER Gender Identity Female 06/27/2022 9:35 PM CDT Sexual Orientation Not on file documented as of this encounter Medications at Time of Discharge cholestyramine (QUESTRAN) 4 gram packet TAKE 1 PACKET 3 TIMES DAILY in juice 03/23/2012 06/28/2022 naltrexone (DEPADE) 50 mg tablet TAKE 1 TABLET BY MOUTH EVERY DAY NEEDED ITCHING 04/12/2012 06/28/2022 ursodioL (EDGAR FORTE) 500 mg tablet daily 04/19/2012 06/28/2022 documented as of this encounter Plan of Treatment Not on file documented as of this encounter Procedures Procedure Name Priority Date/Time Associated Diagnosis Comments CBC WITHOUT DIFFERENTIAL Routine 06/13/2012 4:28 PM CDT BILIRUBIN, TOTAL AND DIRECT Routine 06/13/2012 4:28 PM CDT ALT Routine 06/13/2012 4:28 PM CDT AST Routine 06/13/2012 4:28 PM CDT ALKALINE PHOSPHATASE Routine 06/13/2012 4:28 PM CDT LIPASE Routine 06/13/2012 4:28 PM CDT AMYLASE Routine 06/13/2012 4:28 PM CDT documented in this encounter Results * (ABNORMAL) CBC without differential (06/13/2012 4:28 PM CDT) WBC 5.0 4.6 - 10.2 x10 3/ul 06/13/2012 5:02 PM CDT [employer] HISTORICAL RESULTS RBC 3.94 3.76 - 4.80 x10 6/ul 06/13/2012 5:02 PM CDT [employer] HISTORICAL RESULTS Hemoglobin 12.6 11.0 - 15.0 g/dl 06/13/2012 5:02 PM CDT [employer] HISTORICAL RESULTS Hct 37.1 33.0 - 43.0 % 06/13/2012 5:02 PM CDT [employer] HISTORICAL RESULTS MCV 94.2 80.0 - 97.0 fl 06/13/2012 5:02 PM CDT [facility] [employer] HISTORICAL RESULTS MCH 32.0(H) 27.0 - 31.2 pg 06/13/2012 5:02 PM CDT [employer] HISTORICAL RESULTS MCHC 34.0 31.8 - 35.4 g/dl 06/13/2012 5:02 PM CDT [employer] HISTORICAL RESULTS RDW 12.5 11.6 - 14.8 % 06/13/2012 5:02 PM CDT [facility] [employer] HISTORICAL RESULTS Plt Count 212 124 - 400 x10 3/ul 06/13/2012 5:02 PM CDT [employer] HISTORICAL RESULTS MPV 10.8(H) 7.4 - 10.4 fl 06/13/2012 5:02 PM CDT [employer] HISTORICAL RESULTS 06/13/2012 4:28 PM CDT 06/13/2012 4:46 PM CDT Edgar Hager MD LAB BLOOD ORDERABLES Final Resu lt Performing Organization Address [facility]/ZIP Co de Phone Number [facility] HISTORICAL RESULTS * Lipase (06/13/2012 4:28 PM CDT) Lipase 30 13 - 60 U/L 06/13/2012 4:28 PM CDT 06/13/2012 4:46 PM CDT Edgar Hager MD LAB BLOOD ORDERABLES Final Resu lt Performing Organization Address [facility] Phone Number [facility] HISTORICAL RESULTS * Amylase (06/13/2012 4:28 PM CDT) Amylase 72 28 - 100 U/L 06/13/2012 4:28 PM CDT 06/13/2012 4:46 PM CDT Edgar Hager MD LAB BLOOD ORDERABLES Final Resu lt Performing Organization Address [facility] de Phone Number [facility] HISTORICAL RESULTS * Alkaline phosphatase (06/13/2012 4:28 PM CDT) Alkaline Phosphatase 75 35 - 104 U/L 06/13/2012 4:28 PM CDT 06/13/2012 4:46 PM CDT Edgar Hager MD LAB BLOOD ORDERABLES Final Resu lt Performing Organization Address [facility] Co de Phone Number [facility] HISTORICAL RESULTS * ALT (06/13/2012 4:28 PM CDT) ALT 15 0 - 31 U/L 06/13/2012 4:28 PM CDT 06/13/2012 4:46 PM CDT us Edgar Hager MD LAB BLOOD ORDERABLES Final Resu lt Performing Organization Address [facility] Co de Phone Number [facility] HISTORICAL RESULTS * AST (06/13/2012 4:28 PM CDT) AST 17 0 - 32 U/L 06/13/2012 4:28 PM CDT 06/13/2012 4:46 PM CDT us Edgar Hager MD LAB BLOOD ORDERABLES Final Resu lt Performing Organization Address [facility] de Phone Number [facility] HISTORICAL RESULTS * Bilirubin, total and direct (06/13/2012 4:28 PM CDT) Total Bilirubin 0.4 0.0 - 1.2 mg/dL Direct Bilirubin < 0.20 0.00 - 0.25 mg/dL 06/13/2012 4:28 PM CDT 06/13/2012 4:46 PM CDT us Edgar Hager MD LAB BLOOD ORDERABLES Final Resu lt Performing Organization Address [facility] Co de Phone Number [facility] HISTORICAL RESULTS documented in this encounter Visit Diagnoses Diagnosis Abnormal levels of other serum enzymes Pruritic disorder Unspecified pruritic disorder Abdominal pain Abdominal pain, unspecified site documented in this encounter
--- OUTSIDE RECORDS SUMMARY | 2024-02-18 03:29 | XMS_ITS | Encounter Summary ---
Author Organization [facility] Healthcare Address [address] [place] [address] Care Team Providers Care Stage Setting Painter Apprentice Name Role Phone Unavailable Primary Care Provider Unavailabl e Encounter Details Date Type Department Care Team (Latest Contact Info) Description 04/10/2012 11:10 AM GUN MECHANIC Hospital Encounter [facility] Edgar Hager MD [address] [place] [address] Acute pancreatitis; Abdominal pain Social History Tobacco Use Types Packs/Day Years Used Date Smoking Tobacco: Never Assessed Comments Unknown Sex and Gender Information Value Date Recorded Sex Assigned at Not on file Legal Sex Female 3:22 AM GUN MECHANIC Gender Identity Female 06/27/2022 9:35 PM CDT [...] Associated Diagnosis Comments CBC WITHOUT DIFFERENTIAL Routine 04/10/2012 11:15 AM GUN MECHANIC BILIRUBIN, TOTAL AND DIRECT Routine 04/10/2012 11:15 AM GUN MECHANIC LIPASE Routine 04/10/2012 11:15 AM GUN MECHANIC AMYLASE Routine 04/10/2012 11:15 AM GUN MECHANIC COMPREHENSIVE METABOLIC PANEL Routine 04/10/2012 11:15 AM GUN MECHANIC documented in this encounter Results * (ABNORMAL) Comprehensive metabolic panel (04/10/2012 11:15 AM GUN MECHANIC) Sodium 134(L) 135 - 145 mmol/L 04/10/2012 5:39 PM [facility] [employer] HISTORICAL RESULTS Potassium 3.6 3.3 - 5.1 mmol/L 04/10/2012 5:39 PM [facility] [employer] HISTORICAL RESULTS Chloride 99 96 - 108 mmol/L 04/10/2012 5:39 PM [facility] HISTORICAL RESULTS Carbon Dioxide 28 22 - 32 mmol/L 04/10/2012 5:39 PM [employer] [facility] [employer] [facility] HISTORICAL RESULTS Anion Gap 7 Glucose 66(L) 70 - 110 mg/dL BUN 7 6 - 20 mg/dL 04/10/2012 5:39 PM [facility] [employer] [facility] HISTORICAL RESULTS Creatinine 0.5 0.5 - 1.1 mg/dL 04/10/2012 5:39 PM GUN MECHANIC [facility] [employer] [facility] HISTORICAL RESULTS Kidney Disease Stage > 90 mL/MIN 04/10/2012 5:39 PM GUN MECHANIC [facility] [employer] [facility] HISTORICAL RESULTS Comment: NOTE; ??The GFR is an estimated value using the creatinine, sex, age, and race of the patient. THE ESTIMATED GFR IS VALIDATED FOR AGES 18-70 YEARS STAGE ?mL/Min ?DESCRIPTION ??1 ?90 mL/min or more ?Normal or elevated GFR ??2 ? 60-89 mL/min ?Mildly decreased GFR ??3 ? 30-59 mL/min ?Moderately decreased GFR ??4 ? 15-29 mL/min ?Severely decreased GFR ??5 ? <15 mL/min ? Kidney failure or on dialysis @ Calcium 2.35 2.15 - 2.55 mmol/L Total Protein 7.7 6.4 - 8.4 g/dL Albumin 4.0 3.5 - 5.2 g/dL Globulin 3.7(H) 2.3 - 3.5 gm/dL Albumin/Globulin Ratio 1.1 1.1 - 1.8 Total Bilirubin 1.5(H) 0.0 - 1.2 mg/dL AST 171(H) 0 - 32 U/L ALT 279(H) 0 - 31 U/L Alkaline Phosphatase 220(H) 35 - 104 U/L 04/10/2012 11:1 5 AM GUN MECHANIC 04/10/2012 12:20 PM GUN MECHANIC us Edgar Hager MD LAB BLOOD ORDERABLES Final Resu lt [facility] HISTORICAL RESULTS * (ABNORMAL) CBC without differential (04/10/2012 11:15 AM GUN MECHANIC) WBC 8.0 4.6 - 10.2 x10 3/ul RBC 3.99 3.76 - 4.80 x10 6/ul Hemoglobin 12.9 11.0 - 15.0 g/dl Hct 37.2 33.0 - 43.0 % MCV 93.2 80.0 - 97.0 fl MCH 32.3(H) 27.0 - 31.2 pg MCHC 34.7 31.8 - 35.4 g/dl RDW 12.8 11.6 - 14.8 % Plt Count 328 124 - 400 x10 3/ul MPV 12.0(H) 7.4 - 10.4 fl 04/10/2012 11:1 5 AM GUN MECHANIC 04/10/2012 12:20 PM GUN MECHANIC Edgar Hager MD LAB BLOOD ORDERABLES Final Resu lt [facility] HISTORICAL RESULTS * Lipase (04/10/2012 11:15 AM GUN MECHANIC) Lipase 49 13 - 60 U/L 04/10/2012 11:1 5 AM GUN MECHANIC 04/10/2012 12:20 PM GUN MECHANIC Edgar Hager MD LAB BLOOD ORDERABLES Final Resu lt [facility] HISTORICAL RESULTS * Amylase (04/10/2012 11:15 AM GUN MECHANIC) Amylase 78 28 - 100 U/L 04/10/2012 1:02 PM GUN MECHANIC [facility] HISTORICAL RESULTS 04/10/2012 11:1 5 AM GUN MECHANIC 04/10/2012 12:20 PM GUN MECHANIC Result [facility] Edgar Hager MD LAB BLOOD ORDERABLES Final Resu lt [facility] [employer] HISTORICAL RESULTS * (ABNORMAL) Bilirubin, total and direct (04/10/2012 11:15 AM GUN MECHANIC) Direct Bilirubin 0.82(H) 0.00 - 0.25 mg/dL 04/10/2012 1:02 PM GUN MECHANIC [facility] [employer] HISTORICAL RESULTS 04/10/2012 11:1 5 AM GUN MECHANIC 04/10/2012 12:20 PM GUN MECHANIC Edgar Hager MD LAB BLOOD ORDERABLES Final Resu lt Performing Organization Address City/[facility]/ZIP Co de Phone Number [facility] [employer] HISTORICAL RESULTS documented in this encounter Visit Diagnoses Diagnosis Acute pancreatitis Abdominal pain Abdominal pain, unspecified site documented in this encounter
--- OUTSIDE RECORDS SUMMARY | 2024-02-18 03:29 | XMS_ITS | Encounter Summary ---
Author Organization [facility] Healthcare Address [address] [place] [address] Care Team Providers Care Roll Table Operator Name Role Phone Tristin Ghotra MD Primary Care Provider [phone] Encounter Details Date Type Department Care Team (Latest Contact Info) Description 10/30/2013 7:47 AM CDT Hospital Encounter [facility] Edgar Hager MD [address] [place], [place] [id number] Obstruction of bile duct; Other specified abnormal findings of blood chemistry; Abdominal pain Social History Tobacco Use Types Packs/Day Years Used Date Smoking Tobacco: Never Alcohol Use Standard Drinks/Week Comments Yes 0 (1 standard drink = 0.6 oz pur e alcohol) Comments Unknown Sex and Gender Information Value Date Recorded Sex Assigned at Not on file Legal Sex Female 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 ??The common duct measures 0.7 cm in size and tapers normally to its insertion without evidence of choledocholithiasis or obstructing mass. THIS IS AN ELECTRONICALLY VERIFIED REPORT 10/30/2013 4:23 PM: ??Vern Grider M.D. Vern Grider M.D. AT:stefany 10:58 AM 11:05 AM [facility] [EOD] Narrative 10/30/2013 4:30 PM CDT EXAMINATION: ??MRI abdomen without contrast Comparison: ??10/11/2011. Indication: ??Ampullary stenosis, elevated LFTs and abdominal pain. TECHNIQUE: ??Multiplanar multisequence MRI of the abdomen was obtained without contrast. ??Examination was performed according to the MRCP protocol. FINDINGS: ??The liver demonstrates an unremarkable T2-weighted appearance. ??The spleen, adrenal glands, and kidneys demonstrate an unremarkable appearance as well. ??A 0.4 cm focus of increased T2 signal is noted within the left kidney, too small to definitively characterize, statistically most likely to represent a cyst. ??The appearance is unchanged from the comparison examination. ??The gallbladder is surgically absent. ??Pancreas demonstrates an unremarkable T2-weighted appearance. ??Pancreatic duct is visible, and not significantly dilated. ??Common bile duct measures 0.7 cm in size, similar to the comparison examination. ??The duct tapers normally to its insertion. ??There is no evidence of choledocholithiasis. Procedure Note ProviderYahir MD - 07/06/2020 EXAMINATION: MRI abdomen without contrast Comparison: 10/11/2011. Indication: Ampullary stenosis, elevated LFTs and abdominal pain. TECHNIQUE: Multiplanar multisequence MRI of the abdomen was obtainedwithout contrast. Examination was performed according to the MRCP protocol. FINDINGS: The liver demonstrates an unremarkable T2-weighted appearance.The spleen, adrenal glands, and kidneys demonstrate an unremarkable appearanceas well. A 0.4 cm focus of increased T2 signal is noted within the leftkidney, too small to definitively characterize, statistically most likely torepresent a cyst. The appearance is unchanged from the comparison examination. The gallbladder is surgically absent. Pancreas demonstrates an unremarkable T2-weighted appearance. Pancreatic duct is visible, and not significantly dilated. Common bile duct measures 0.7 cm in size, similar to thecomparison examination. The duct tapers normally to its insertion. There is noevidence of choledocholithiasis. IMPRESSION: Stable MRCP of the abdomen. The common duct measures 0.7 cmin size and tapers normally to its insertion without evidence of choledocholithiasis or obstructing mass. THIS IS AN ELECTRONICALLY VERIFIED REPORT 10/30/2013 4:23 PM: Vern Grider M.D. Vern Grider M.D. AT:stefany 10:58 AM 11:05 AM [facility] [EOD] Edgar Hager MD IM MRI PROCEDURES Final Result documented in this encounter Visit Diagnoses Diagnosis Obstruction of bile duct Other specified abnormal findings of blood chemistry Abdominal pain Abdominal pain, unspecified site documented in this encounter Care Teams Roll Table Operator Relationship Specialty Start Date End Date Tristin Ghotra MD [address] [place] [address] [phone] PCP - General 10/11/13 12/06/18 documented as of this encounter
--- OUTSIDE RECORDS SUMMARY | 2024-02-18 03:29 | XMS_ITS | Encounter Summary ---
Author Organization [facility] Healthcare Address [address] [place] [address] Care Team Providers Care Assistant Family Teacher Name Role Phone Tristin Ghotra MD Primary Care Provider [phone] Encounter Details Date Type Department Care Team (Latest Contact Info) Description 10/30/2013 9:08 AM CDT Hospital Encounter [facility] Edgar Hager MD [address] [place] [address] Other specified abnormal findings of blood chemistry Social History Tobacco Use Types Packs/Day Years Used Date Smoking Tobacco: Never Alcohol Use Standard Drinks/Week Comments Yes 0 (1 standard drink = 0.6 oz pur e alcohol) Comments Unknown Sex and Gender Information Value Date Recorded Sex Assigned at Not on file Legal Sex Female 3: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 WINDOW ASSEMBLER Gender Identity Female 06/27/2022 9:35 PM CDT [...] Procedure Name Priority Date/Time Associated Diagnosis Comments BILIRUBIN, TOTAL AND DIRECT Routine 10/30/2013 9:13 AM CDT ALT Routine 10/30/2013 9:13 AM CDT AST Routine 10/30/2013 9:13 AM CDT ALKALINE PHOSPHATASE Routine 10/30/2013 9:13 AM CDT ALBUMIN Routine 10/30/2013 9:13 AM CDT documented in this encounter Results * (ABNORMAL) Alkaline phosphatase (10/30/2013 9:13 AM CDT) Alkaline Phosphatase 147(H) 35 - 104 U/L 10/30/2013 9:47 AM CDT [facility] HISTORICAL RESULTS 10/30/2013 9:13 AM CDT 10/30/2013 9:15 AM CDT us Edgar Hager MD LAB BLOOD ORDERABLES Final Resu lt [facility] HISTORICAL RESULTS * (ABNORMAL) ALT (10/30/2013 9:13 AM CDT) ALT 94(H) 0 - 33 U/L 10/30/2013 9:47 AM CDT [facility] HISTORICAL RESULTS 10/30/2013 9:13 AM CDT 10/30/2013 9:15 AM CDT us Edgar Hager MD LAB BLOOD ORDERABLES Final Resu lt [facility] HISTORICAL RESULTS * (ABNORMAL) AST (10/30/2013 9:13 AM CDT) AST 72(H) 0 - 32 U/L 10/30/2013 9:47 AM CDT [facility] HISTORICAL RESULTS 10/30/2013 9:13 AM CDT 10/30/2013 9:15 AM CDT us Edgar Hager MD LAB BLOOD ORDERABLES Final Resu lt [facility] HISTORICAL RESULTS * Bilirubin, total and direct (10/30/2013 9:13 AM CDT) Total Bilirubin 0.6 0.0 - 1.2 mg/dL 10/30/2013 9:47 AM CDT [facility] HISTORICAL RESULTS Direct Bilirubin < 0.20 0.00 - 0.25 mg/dL 10/30/2013 9:47 AM CDT [facility] HISTORICAL RESULTS 10/30/2013 9:13 AM CDT 10/30/2013 9:15 AM CDT us Edgar Hager MD LAB BLOOD ORDERABLES Final Resu lt Performing Organization Address City/[facility]/ZIP Co de Phone Number [facility] HISTORICAL RESULTS * Albumin (10/30/2013 9:13 AM CDT) Albumin 4.3 3.5 - 5.2 g/dL 10/30/2013 9:47 AM CDT [facility] HISTORICAL RESULTS 10/30/2013 9:13 AM CDT 10/30/2013 9:15 AM CDT Edgar Hager MD LAB BLOOD ORDERABLES Final Resu lt [facility] HISTORICAL RESULTS documented in this encounter Visit Diagnoses Diagnosis Other specified abnormal findings of blood chemistry documented in this encounter Care Teams Assistant Family Teacher Relationship Specialty Start Date End Date Tristin Ghotra MD [address] [place] [address] PCP - General 10/11/13 12/06/18 documented as of this encounter
--- OUTSIDE RECORDS SUMMARY | 2024-02-18 03:29 | XMS_ITS | Encounter Summary ---
Author Organization [facility] Facility Care Team Providers Care Pilot Captain Name Role Phone Unavailable Primary Care Provider Unavailabl e Encounter Details Date Type Department Care Team (Late st Contact Info) Description 04/25/2009 - 04/25/2009 11:59 PM BUDGET CONSULTANT Hospital Encounter [facility] Jorge Crowe MD [address] [place] [address] Follow-up examination, following other surgery; Abnormal levels of other serum enzymes Social History Tobacco Use Types Packs/Day Years Used Date Smoking Tobacco: Never Assessed Comments Unknown Sex and Gender Information Value Date Recorded Sex Assigned at Not on file Legal Sex Female 3:22 AM BUDGET CONSULTANT Gender Identity Female 06/27/2022 9:35 PM CDT Sexual Orientation Not on file documented as of this encounter Plan of Treatment Not on file documented as of this encounter Visit Diagnoses Diagnosis Follow-up examination, following other surgery Abnormal levels of other serum enzymes documented in this encounter
--- OUTSIDE RECORDS SUMMARY | 2024-02-18 03:29 | XMS_ITS | Encounter Summary ---
Author Organization [facility] Facility Care Team Providers Care Channel Partners Name Role Phone Unavailable Primary Care Provider Unavailabl e Encounter Details Date Type Department Care Team (Late st Contact Info) Description 05/07/2009 9:10 AM CDT - 05/08/2009 7:54 PM CDT Hospital Encounter [facility] Xu Vines MD [address] [place], [place] Anca Judge MD [address] [facility] [address] [place] [address] Other acute postoperative pain; Essential hypertension; Pruritic disorder; Elevation of level of transaminase and lactic acid dehydrogenase (LDH); Place of occurrence, residential institution; Other specified procedure as the cause of abnormal reaction of patient or of later complication Social History Tobacco Use Types Packs/Day Years Used Date Smoking Tobacco: Never Assessed Comments Unknown Sex and Gender Information Value Date Recorded Sex Assigned at Not on file Legal Sex Female 3:22 AM CASE PICKER Gender Identity Female 06/27/2022 9:35 PM CDT Sexual Orientation Not on file documented as of this encounter Plan of Treatment Not on file documented as of this encounter Visit Diagnoses Diagnosis Other acute postoperative pain Essential hypertension Unspecified essential hypertension Pruritic disorder Unspecified pruritic disorder Elevation of level of transaminase and lactic acid dehydrogenase (LDH) Place of occurrence, residential institution Other specified procedure as the cause of abnormal reaction of patient or of later complication documented in this encounter
--- OUTSIDE RECORDS SUMMARY | 2024-02-18 03:29 | XMS_ITS | Encounter Summary ---
Author Organization [facility] Facility Care Team Providers Care Tractor Expert Name Role Phone Unavailable Primary Care Provider Unavailabl e Encounter Details Date Type Department Care Team (Late st Contact Info) Description 05/26/2006 9:47 AM CDT - 05/26/2006 7:28 PM CDT Hospital Encounter [facility] Rigo Fraser MD [address] [place] [address] Social History Tobacco Use Types Packs/Day Years Used Date Smoking Tobacco: Never Assessed Comments Unknown Sex and Gender Information Value Date Recorded Sex Assigned at Not on file Legal Sex Female 3:22 AM STEM FRAZER Gender Identity Female 06/27/2022 9:35 PM CDT Sexual Orientation Not on file documented as of this encounter Plan of Treatment Not on file documented as of this encounter Visit Diagnoses Not on filedocumented in this encounter
--- OUTSIDE RECORDS SUMMARY | 2024-02-18 03:29 | XMS_ITS | Encounter Summary ---
Author Organization [facility] Facility Care Team Providers Care Land Agent Name Role Phone Unavailable Primary Care Provider Unavailabl e Encounter Details Date Type Department Care Team (Late st Contact Info) Description 04/17/2009 - 04/17/2009 11:59 PM TYPE SOLDERING MACHINE TENDER Hospital Encounter [facility] Jorge Crowe MD [address] [place] [address] Abnormal results of liver function studies Social History Tobacco Use Types Packs/Day Years Used Date Smoking Tobacco: Never Assessed Comments Unknown Sex and Gender Information Value Date Recorded Sex Assigned at Not on file Legal Sex Female 3:22 AM TYPE SOLDERING MACHINE TENDER Gender Identity Female 06/27/2022 9:35 PM CDT Sexual Orientation Not on file documented as of this encounter Plan of Treatment Not on file documented as of this encounter Visit Diagnoses Diagnosis Abnormal results of liver function studies Nonspecific abnormal results of liver function study documented in this encounter
--- OUTSIDE RECORDS SUMMARY | 2024-02-18 03:29 | XMS_ITS | Encounter Summary ---
Author Organization [facility] Facility Care Team Providers Care Traffic Operations Engineer Name Role Phone Tirstin Ghotra MD Primary Care Provider [phone] Encounter Details Date Type Department Care Team (Late st Contact Info) Description 05/20/2015 - 05/20/2015 11:59 PM CDT [facility] MD [address] [place] [address] Social History Tobacco Use Types Packs/Day Years Used Date Smoking Tobacco: Never Alcohol Use Standard Drinks/Week Comments Yes 0 (1 standard drink = 0.6 oz pur e alcohol) Comments Unknown Sex and Gender Information Value Date Recorded Sex Assigned at Not on file Legal Sex Female 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
--- OUTSIDE RECORDS SUMMARY | 2024-02-18 03:29 | XMS_ITS | Encounter Summary ---
Author Organization [facility] Healthcare Address [address] [place] [address] Care Team Providers Care Surtass Analyst Name Role Phone Unavailable Primary Care Provider Unavailabl e Encounter Details Date Type Department Care Team (Latest Contact Info) Description 04/16/2012 10:30 AM HOISTING ENGINEER Hospital Encounter [facility] OP Pedro Richards MD [address] [facility] [address] [address] Abdominal pain; Abnormal levels of other serum enzymes; Calculus of kidney Social History Tobacco Use Types Packs/Day Years Used Date Smoking Tobacco: Never Assessed Comments Unknown Sex and Gender Information Value Date Recorded Sex Assigned at Not on file Legal Sex Female 3:22 AM HOISTING ENGINEER Gender Identity Female 06/27/2022 9:35 PM CDT Sexual Orientation Not on file documented as of this encounter Medications at Time of Discharge cholestyramine (QUESTRAN) 4 gram packet TAKE 1 PACKET 3 TIMES DAILY in juice 03/23/2012 06/28/2022 naltrexone (DEPADE) 50 mg tablet TAKE 1 TABLET BY MOUTH EVERY DAY NEEDED ITCHING 04/12/2012 06/28/2022 documented as of this encounter Plan of Treatment Not on file documented as of this encounter Procedures Procedure Name Priority Date/Time Associated Diagnosis Comments BILIRUBIN, TOTAL AND DIRECT Routine 04/16/2012 11:25 AM HOISTING ENGINEER ALT Routine 04/16/2012 11:25 AM HOISTING ENGINEER AST Routine 04/16/2012 11:25 AM HOISTING ENGINEER ALKALINE PHOSPHATASE Routine 04/16/2012 11:25 AM HOISTING ENGINEER ALBUMIN Routine 04/16/2012 11:[address] ABDOMEN PELVIS W WO CONTRAST Routine 04/16/2012 10:30 AM HOISTING ENGINEER documented in this encounter Results * (ABNORMAL) Alkaline phosphatase (04/16/2012 11:25 AM HOISTING ENGINEER) Alkaline Phosphatase 214(H) 35 - 104 U/L 04/16/2012 12:41 PM HOISTING ENGINEER [facility] HISTORICAL RESULTS 04/16/2012 11:2 5 AM HOISTING ENGINEER 04/16/2012 12:01 PM HOISTING ENGINEER us Pedro Richards MD LAB BLOOD ORDERABLES Final Result Performing Organization Address [facility] de Phone Number [facility] [employer] [facility] HISTORICAL RESULTS * (ABNORMAL) ALT (04/16/2012 11:25 AM HOISTING ENGINEER) ALT 446(H) 0 - 31 U/L 04/16/2012 12:41 PM HOISTING ENGINEER [facility] [employer] [facility] HISTORICAL RESULTS 04/16/2012 11:2 5 AM HOISTING ENGINEER 04/16/2012 12:01 PM HOISTING ENGINEER Pedro Richards MD LAB BLOOD ORDERABLES Final Result Performing Organization Address [facility] de Phone Number [facility] [employer] [facility] HISTORICAL RESULTS * (ABNORMAL) AST (04/16/2012 11:25 AM HOISTING ENGINEER) AST 237(H) 0 - 32 U/L 04/16/2012 12:41 PM HOISTING ENGINEER [facility] [employer] [facility] HISTORICAL RESULTS 04/16/2012 11:2 5 AM HOISTING ENGINEER 04/16/2012 12:01 PM HOISTING ENGINEER us Pedro Richards MD LAB BLOOD ORDERABLES Final Result Performing Organization Address [facility] Co de Phone Number [facility] [employer] [facility] HISTORICAL RESULTS * (ABNORMAL) Bilirubin, total and direct (04/16/2012 11:25 AM HOISTING ENGINEER) Total Bilirubin 1.9(H) 0.0 - 1.2 mg/dL Direct Bilirubin 1.05(H) 0.00 - 0.25 mg/dL 04/16/2012 11:2 5 AM HOISTING ENGINEER 04/16/2012 12:01 PM HOISTING ENGINEER Pedro Richards MD LAB BLOOD ORDERABLES Final Result Performing Organization Address [facility] Co de Phone Number [facility] HISTORICAL RESULTS * Albumin (04/16/2012 11:25 AM HOISTING ENGINEER) Pathologist [facility] Albumin 3.9 3.5 - 5.2 g/dL 04/16/2012 11:2 5 AM HOISTING ENGINEER 04/16/2012 12:01 PM HOISTING ENGINEER Pedro Richards MD LAB BLOOD ORDERABLES Final Result Performing Organization Address [facility] de Phone Number [facility] HISTORICAL RESULTS * CT Abdomen Pelvis W WO Contrast (04/16/2012 10:30 AM HOISTING ENGINEER) Anatomical Region Laterality Modality Body N/A Computed Tomogra phy 04/16/2012 10:3 0 AM HOISTING ENGINEER Narrative 04/17/2012 1:12 PM HOISTING ENGINEER EXAMINATION: ??CT of the abdomen and pelvis with and without contrast. Date: ??04/16/2012. Comparison: ??CT 11/17/2008. Indication: ??Abdominal pain. ??Elevated liver enzymes causing itching. TECHNIQUE: ??Multidetector CT scan of the abdomen and pelvis was obtained without contrast. ??Subsequently, following bolus administration of 100 mL of Omnipaque 350 via the right antecubital fossa, postcontrast images through the abdomen and pelvis were obtained. FINDINGS: ??Images of the lung bases are unremarkable. There is a 0.4 cm calculus within the inferior pole of the right kidney. ??The aorta demonstrates normal course and caliber without evidence of dissection or aneurysm. ??There is an accessory left renal artery. ??The origins of the celiac, SMA, MIKAL are widely patent. ??Both renal arteries are patent without evidence of discrete stenosis. The liver demonstrates mild dilation of the intrahepatic biliary ducts with mild pneumobilia. ??The spleen, pancreas, adrenal glands demonstrate an unremarkable postcontrast CT appearance. ??The gallbladder is surgically absent. ??Both kidneys demonstrate normal postcontrast enhancement. ??The collecting system is not dilated. Evaluation of the intestines is moderately limited in the absence of oral contrast. ??Suture material is noted adjacent to the cecum, suggesting previous appendectomy. ??There is no evidence of bowel obstruction. ??The uterus and adnexal structures are grossly unremarkable. No significant degenerative changes of the spine are present. Impression: 1. ??There is no evidence of significant vascular stenosis. ??There is an accessory left renal artery. 2. ??Nonobstructing calculus within the inferior pole of the right kidney. 3. ??Mild prominence of the intrahepatic bile ducts. ??Pneumobilia is present, suggesting incompetence at the sphincter of Oddi. THIS IS AN ELECTRONICALLY VERIFIED REPORT 04/17/2012 1:11 PM: ??Vern Grider M.D. Vern Grider M.D. AT:[facility] 04:28 PM 04:39 PM [EOD] Procedure Note Provider, MD Yahir - 07/06/2020 EXAMINATION: CT of the abdomen and pelvis with and without contrast. Date: 04/16/2012. Comparison: CT 11/17/2008. Indication: Abdominal pain. Elevated liver enzymes causing itching. TECHNIQUE: Multidetector CT scan of the abdomen and pelvis was obtained without contrast. Subsequently, following bolus administration of 100 mLof Omnipaque 350 via the right antecubital fossa, postcontrast images throughthe abdomen and pelvis were obtained. FINDINGS: Images of the lung bases are unremarkable. There is a 0.4 cm calculus within the inferior pole of the right kidney.The aorta demonstrates normal course and caliber without evidence ofdissection or aneurysm. There is an accessory left renal artery. The origins of the celiac, SMA, MIKAL are widely patent. Both renal arteries are patentwithout evidence of discrete stenosis. The liver demonstrates mild dilation of the intrahepatic biliary ductswith mild pneumobilia. The spleen, pancreas, adrenal glands demonstrate an unremarkable postcontrast CT appearance. The gallbladder is surgically absent. Both kidneys demonstrate normal postcontrast enhancement. The collecting system is not dilated. Evaluation of the intestines is moderately limited in the absence of oral contrast. Suture material is noted adjacent to the cecum, suggestingprevious appendectomy. There is no evidence of bowel obstruction. The uterus and adnexal structures are grossly unremarkable. No significant degenerative changes of the spine are present. Impression: 1. There is no evidence of significant vascular stenosis. There is an accessory left renal artery. 2. Nonobstructing calculus within the inferior pole of the rightkidney. 3. Mild prominence of the intrahepatic bile ducts. Pneumobilia ispresent, suggesting incompetence at the sphincter of Oddi. THIS IS AN ELECTRONICALLY VERIFIED REPORT 04/17/2012 1:11 PM: Vern Grider M.D. Vern Grider M.D. AT:[facility] 04:28 PM 04:39 PM [EOD] Pedro Richards MD IMGiuseppe CT PROCEDURES Final Re sult documented in this encounter Visit Diagnoses Diagnosis Abdominal pain Abdominal pain, unspecified site Abnormal levels of other serum enzymes Calculus of kidney documented in this encounter
--- OUTSIDE RECORDS SUMMARY | 2024-02-18 04:23 | XMS_ITS | Encounter Summary ---
Author Organization [facility] Address [address] [place] [address] Care Team Providers Care Wind Turbine Sheet Metal Worker Name Role Phone Tristin Ghotra MD Primary Care Provider [phone] Reason for Visit * Reason Comments Follow-up Encounter Details Date Type Department Care Team ([facility] Contact Info) Description 12/14/2017 11:30 AM CDT Office Visit [facility] - [address], [facility] [address] [place] [phone] Matt Armstrong MD [address] [place] [address] [place] [address] Spontaneous dissection of coronary artery (Primary Dx); Essential hypertension; History of [place] (myocardial infarction); S/P coronary artery stent placement; [...] for HTN, prior near syncope and prior [place] and stenting due to spontaneous coronary dissection [...] [place] (myocardial infarction) 09/06/2017 Priority: Not Prioritized Echo [...] born in 2003. 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 Family History [...] Essential hypertension History of [place] (myocardial infarction) S/P coronary artery stent placement [...] agrees to check back in with her Service Shop Foreman. 9. Routine f/u with us in 10 weeks. Matt Armstrong III, MD, [facility] [email or web address] documented in this encounter Plan of Treatment Not on file documented as of this encounter Visit Diagnoses Diagnosis Spontaneous dissection of coronary artery- Primary Essential hypertension History of [place] (myocardial infarction) Old myocardial infarction S/P coronary artery stent placement Postsurgical percutaneous transluminal coronary angioplasty status History of near syncope Personal history of other specified diseases documented in this encounter Care Teams Wind Turbine Sheet Metal Worker Relationship Specialty Start Date End Date Tristin Ghotra MD [facility] [address] [place] [address] PCP - General 04/04/12 documented as of this encounter
--- OUTSIDE RECORDS SUMMARY | 2024-02-18 04:23 | XMS_ITS | Encounter Summary ---
Author Organization [facility] Address [address] [place] [address] Care Team Providers Care Manager Part Name Role Phone Tristin Ghotra MD Primary Care Provider [phone] Reason for Visit * Reason Comments Follow-up Encounter Details Date Type Department Care Team ([facility] Contact Info) Description 10/18/2017 12:30 PM CDT Office Visit [facility] - [address], [facility] [address] [place] [phone] Matt Armstrong MD [address] [place] [address] [place] [address] Spontaneous dissection of coronary artery (Primary Dx); Essential hypertension; History of [place] (myocardial infarction); History of near syncope; S/P [...] with ??? Follow-up History of Present Illness Paoal Mckeon is a 42 y.o. female, who follows routinely for HTN, prior near syncope and prior [place] and stenting due to spontaneous coronary dissection [...] born in 2003. 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 Family History [...] of coronary artery Essential hypertension History of [place] (myocardial infarction) History of near syncope S/P [...] angina, and has a known normal EF post-WY, no B-dylan is very reasonable. 6. When she started Nifedipine, patient elected to stop Ramipril. 7. She is planning to start exercise w/ [employer] osmar and spin for exercise. 8. She [...] agrees to check back in with her Library Serials Assistant. 12. Routine f/u with us in 8 weeks. She will call me in a week w/ update on exercise and symptoms. Matt Armstrong III, MD, [facility] [email or web address] * Roxanne Epperson - 10/18/2017 12:46 PM [...] coronary artery- Primary Essential hypertension History of [place] (myocardial infarction) Old myocardial infarction History of near syncope Personal history of other specified diseases S/P coronary artery stent placement Postsurgical percutaneous transluminal coronary angioplasty status documented in this encounter Care Teams Manager Part Relationship Specialty Start Date End Date Tristin Ghotra MD [address] [facility] [address] [place] [address] PCP - General 04/04/12 documented as of this encounter
--- OUTSIDE RECORDS SUMMARY | 2024-02-18 04:23 | XMS_ITS | Encounter Summary ---
Author Organization [facility] Address [address] [facility] [place] [address] Care Team Providers Care Assistant Pressman Name Role Phone Tristin Ghotra MD Primary Care Provider [phone] Encounter Details Date Type Department Care Team [...] on filedocumented in this encounter Care Teams Assistant Pressman Relationship Specialty Start Date End Date Tristin Ghotra MD [address] [place] [address] [address] [place] [address] PCP - General 04/04/12 documented as of this encounter
--- OUTSIDE RECORDS SUMMARY | 2024-02-18 04:23 | XMS_ITS | Encounter Summary ---
Author Organization [facility] Address [address] [facility] [place] [address] Care Team Providers Care Pinion Polisher Name Role Phone Tristin Ghotra MD Primary Care Provider [phone] Encounter Details Date Type Department Care Team [...] on filedocumented in this encounter Care Teams Pinion Polisher Relationship Specialty Start Date End Date Tristin Ghotra MD [address] [place] [address] [address] [place] [address] PCP - General 04/04/12 documented as of this encounter
--- OUTSIDE RECORDS SUMMARY | 2024-02-18 04:23 | XMS_ITS | Encounter Summary ---
Author Organization [facility] Address [address] [facility] [place] [address] Care Team Providers Care Furnace Room Supervisor Name Role Phone Tristin Ghotra MD Primary Care Provider [phone] Reason for Visit * Reason Onset Date Comments MEDICATION REFILL 10/03/2017 Encounter Details Date Type Department Care Team (Late st Contact Info) Description 10/03/2017 Refill [facility] - [address], [facility] [address] [place] [phone] Matt Armstrong MD [address] [place] [address] MEDICATION REFILL Social History Tobacco Use [...] on filedocumented in this encounter Care Teams Furnace Room Supervisor Relationship Specialty Start Date End Date Tristin Ghotra MD [address] [place] [address] [address] [place] [address] PCP - General 04/04/12 documented as of this encounter
--- OUTSIDE RECORDS SUMMARY | 2024-02-18 04:23 | XMS_ITS | Encounter Summary ---
Author Organization [facility] Address [address] [facility] [place] [address] Care Team Providers Care Rn Lactation Name Role Phone Tristin Ghotra MD Primary Care Provider [phone] Reason for Visit * Reason Comments Refill Request Encounter Details Date Type Department Care Team (Late st Contact Info) Description 05/16/2018 Refill [facility] - [address], [place] [address] [place] [address] Matt Armstrong MD [address] [place] [address] Refill Request Social History Tobacco Use [...] on filedocumented in this encounter Care Teams Rn Lactation Relationship Specialty Start Date End Date Tristin Ghotra MD [address] [place] [address] [address] [place] [address] PCP - General 04/04/12 documented as of this encounter
--- OUTSIDE RECORDS SUMMARY | 2024-02-18 04:23 | XMS_ITS | Encounter Summary ---
Author Organization [facility] Address [address] [place] [address] Care Team Providers Care Caustic Liquor Maker Name Role Phone Tristin Ghotra MD Primary Care Provider [phone] Encounter Details Date Type Department Care Team (Late st Contact Info) Description 04/19/2012 Hospital Outpatient Visit Historic [facility] DEFAULT [address] [place] [address] Caro Pa MD [facility] [address] [place] [address] Social History Tobacco Use Types Packs/Day Years Used Date Smoking Tobacco: Never Assessed Sex and Gender Information Value Date Recorded Sex Assigned at Not on file Gender Identity Not on file Sexual Orientation Not on file documented as of this encounter Plan of Treatment Not on file documented as of this encounter Visit Diagnoses Not on filedocumented in this encounter Care Teams Caustic Liquor Maker Relationship Specialty Start Date End Date Tristin Ghotra MD [address] [place] [address] [address] [place] [phone] PCP - General 04/04/12 documented as of this encounter
--- OUTSIDE RECORDS SUMMARY | 2024-02-18 04:23 | XMS_ITS | Patient Health Summary ---
Author Organization [facility] Address [address] [facility] [place] [address] Care Team Providers Care Air Shovel Operator Name Role Phone Tristin Ghotra MD Primary Care Provider [phone] Note from [facility],non-owned Affiliates and Associated Physician Practices is amultiple site organization consisting of ambulatory clinics and hospital sitesin [place], [place], [place] and [place]. This disclosure is being madepursuant to the Care Everywhere program and may not contain all information available regarding this patient. Last updated 17.[facility] Allergies No known active allergies Medications [...] Diagnosed Date Elevated LFTs 09/06/2017 History of [place] (myocardial infarction) 09/06/2017 Spontaneous dissection of coronary [...] No Growth of Methicillin Resistant Staphylococcus aureus. [facility] Nasopharyngeal 09/19/2013 5: 20 PM CDT 09/19/2013 9:27 PM CDT Narrative [facility] - 09/21/2013 11:19 AM CDT AndersonSpecimen#[id number] Joselito Loc/Rm/Bed: ICU/ICU/01 Historical Provider LAB - MICROBIOLOG Y ORDERABLES Performing Organization Address City/State/[facility] Co de Phone Number [facility] [address] [phone] * CARDIAC CATHETERIZATION, LEFT (09/19/2013) Provider Unknown GENERIC SURGICAL HIS TORY Care Teams Air Shovel Operator Relationship Specialty Start Date End Date Tristin Ghotra MD [address] [place] [address] [place] [address] [place] [address] PCP - General 04/04/12
--- OUTSIDE RECORDS SUMMARY | 2024-02-18 04:23 | XMS_ITS | Encounter Summary ---
Author Organization [facility] Address [address] [place] [address] Care Team Providers Care Electric Scoop Operator Name Role Phone Tristin Ghotra MD Primary Care Provider [phone] Reason for Visit * Reason Onset Date Comments Update 10/02/2017 Blood Pressure Encounter Details Date Type Department Care Team (Late st Contact Info) Description 10/02/2017 Telephone [facility] - [address], [facility] [address] [place] [address] Matt Armstrong MD [address] [place] [address] Update (Blood Pressure) Social History Tobacco [...] on filedocumented in this encounter Care Teams Electric Scoop Operator Relationship Specialty Start Date End Date Tristin Ghotra MD [address] [place] [address] [address] [place] [address] PCP - General 04/04/12 documented as of this encounter
--- OUTSIDE RECORDS SUMMARY | 2024-02-18 04:23 | XMS_ITS | Encounter Summary ---
Author Organization [facility] Address [address] [facility] [place] [address] Care Team Providers Care Anode Machine Operator Name Role Phone Tristin Ghotra MD Primary Care Provider [phone] Encounter Details Date Type Department Care Team (Late st Contact Info) Description 05/07/2018 Orders Only [facility] [place] [address], [place] [address] [place] [address] ProviderYahir MD Social History Tobacco [...] on filedocumented in this encounter Care Teams Anode Machine Operator Relationship Specialty Start Date End Date Tristin Ghotra MD [address] [place] [address] [address] [address] [place] [address] PCP - General 04/04/12 documented as of this encounter
--- OUTSIDE RECORDS SUMMARY | 2024-02-18 04:23 | XMS_ITS | Clinical Summary ---
Author Organization [facility] Address [address] [facility] [place] [address] Care Team Providers Care Fitness Assistant Name Role Phone Tristin Ghotra MD Primary Care Provider [phone] Source Comments [facility],non-owned Affiliates and Associated Physician Practices is amultiple site organization consisting of ambulatory clinics and hospital sitesin [place], [place], [place] and [place]. This disclosure is being madepursuant to the Care Everywhere program and may not contain all information available regarding this patient. Last updated 17.[facility] Allergies No known active allergies Medications * [...] age to complete this topic Care Teams Fitness Assistant Relationship Specialty Start Date End Date Tristin Ghotra MD [address] [place] [address] [address] [place] [address] PCP - General 04/04/12
--- OUTSIDE RECORDS SUMMARY | 2024-02-18 04:23 | XMS_ITS | Encounter Summary ---
Author Organization [facility] Address [address] [place] [address] Care Team Providers Care Insurance Instructor Name Role Phone Tristin Ghotra MD Primary Care Provider [phone] Reason for Visit * Reason Comments Follow-up Encounter Details Date Type Department Care Team ([facility] Contact Info) Description 12/05/2019 12:00 PM CDT Office Visit [facility] - [address], [facility] [address] [place] [phone] Matt Armstrong MD [address] [place] [address] [place] [address] Spontaneous dissection of coronary artery (Primary Dx); Essential hypertension; History of [place] (myocardial infarction); S/P coronary artery stent placement; [...] Exercise - 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 Also does light weights and stretch bands. Takes her time, but whole workout takes up to 2.5 hours. Heartburn worse despite no ASA frequently. No bowel or bladder troubles. Menses are irregular, lessheavy but more persistent - Manager Crisis follow-up planned. Comprehensive system review is otherwise negative for constitutional, HENT, eyes, neck, musculoskeletal, derm, neuro, cardiovascular, pulmonary, extr emities, vascular, endocrine, GI, . Patient Active Problem List Diagnosis Date Noted ??? Elevated LFTs 09/06/2017 Priority: Not Prioritized ??? History of [place] (myocardial infarction) 09/06/2017 Priority: Not Prioritized Echo [...] file Gets together: Not on file Attends islam service: Not on file Active member of [...] born in 2004. 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 Family History Problem [...] of coronary artery Essential hypertension History of [place] (myocardial infarction) S/P coronary artery stent placement [...] 9. Taking Spironolactone at high dose per Permit Coordinator for hair loss and scalp yeast. 10. [...] in 12 mo. Matt Armstrong III, MD, [facility] [email or web address] documented in this encounter Plan of Treatment Not on file documented as of this encounter Visit Diagnoses Diagnosis Spontaneous dissection of coronary artery- Primary Essential hypertension History of [place] (myocardial infarction) Old myocardial infarction S/P coronary artery stent placement Postsurgical percutaneous transluminal coronary angioplasty status History of near syncope Personal history of other specified diseases Elevated LFTs Other abnormal blood chemistry documented in this encounter Care Teams Insurance Instructor Relationship Specialty Start Date End Date Tristin Ghotra MD [address] [place] [address] [address] [place] [phone] PCP - General 04/04/12 documented as of this encounter
--- OUTSIDE RECORDS SUMMARY | 2024-02-18 04:23 | XMS_ITS | Encounter Summary ---
Author Organization [facility] Address [address] [place] [address] Care Team Providers Care Erection Shop Supervisor Name Role Phone Tristin Ghotra MD Primary Care Provider [phone] Reason for Visit * Reason Comments Follow-up Encounter Details Date Type Department Care Team (Late Contact Info) Description 04/10/2018 12:30 PM PATIENT REGISTRATION SUPERVISOR Office Visit [facility] - [address], [facility] [address] [place] [phone] Matt Armstrong MD [address] [place] [address] [place] [address] Spontaneous dissection of coronary artery (Primary Dx); Essential hypertension; Elevated LFTs; History of [place] (myocardial infarction); S/P coronary artery stent placement; [...] Comments Blood Pressure 119/82 04/10/2018 12:28 PM PATIENT REGISTRATION SUPERVISOR Pulse 61 04/10/2018 12:28 PM PATIENT REGISTRATION SUPERVISOR Temperature - - Respiratory Rate - - Oxygen Saturation 97% 04/10/2018 12:28 PM PATIENT REGISTRATION SUPERVISOR Inhaled Oxygen Concentration - - Weight 70.3 kg (155 lb) 04/10/2018 12:28 PM PATIENT REGISTRATION SUPERVISOR Height 175.3 cm (5' 9 ) 04/10/2018 12:28 PM PATIENT REGISTRATION SUPERVISOR Body Mass Index 22.89 04/10/2018 12:28 PM PATIENT REGISTRATION SUPERVISOR documented in this encounter Progress Notes * Roxanne Epperson - 04/10/2018 12:28 PM CST 10 week f/u Weight same as last OV Systolic BP usually upper 130s No recent syncope/presyncope ENT REGISTRATION SUPERVISOR * Matt Armstrong MD - 03/03/2018 9:19 AM CST Images from the original note were not included. Chief Complaint Patient presents with ??? Follow-up History of Present Illness Paola Mckeon is a 43 y.o. female, who follows routinely for HTN, prior near syncope and prior [place] and stenting due to spontaneous coronary dissection [...] 09/06/2017 Priority: Not Prioritized ??? History of [place] (myocardial infarction) 09/06/2017 Priority: Not Prioritized Echo [...] in 2004. 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 Family History Problem [...] artery Essential hypertension Elevated LFTs History of [place] (myocardial infarction) S/P coronary artery stent placement [...] agrees to check back in with her Telemetry Nurse. 11. Routine f/u in 6 mo. Matt Armstrong III, MD, [facility] [email or web address] ENT REGISTRATION SUPERVISOR documented in this encounter Plan of Treatment Not on file documented as of this encounter Visit Diagnoses Diagnosis Spontaneous dissection of coronary artery- Primary Essential hypertension Elevated LFTs Other abnormal blood chemistry History of [place] (myocardial infarction) Old myocardial infarction S/P coronary artery stent placement Postsurgical percutaneous transluminal coronary angioplasty status History of near syncope Personal history of other specified diseases documented in this encounter Care Teams Erection Shop Supervisor Relationship Specialty Start Date End Date Tristin Ghotra MD [address] [place] [address] [address] [place] [address] PCP - General 04/04/12 documented as of this encounter
--- OUTSIDE RECORDS SUMMARY | 2024-02-18 04:23 | XMS_ITS | Encounter Summary ---
Author Organization [facility] Address [address] [facility] [place] [address] Care Team Providers Care Marketing Support Manager Name Role Phone Tristin Ghotra MD Primary Care Provider [phone] Reason for Visit * Reason Onset Date Comments MEDICATION REFILL 11/21/2018 Encounter Details Date Type Department Care Team (Late st Contact Info) Description 11/21/2018 Refill [facility] - [address], [facility] [address] [place] [phone] Matt Armstrong MD [address] [place] [address] MEDICATION REFILL Social History Tobacco Use [...] on filedocumented in this encounter Care Teams Marketing Support Manager Relationship Specialty Start Date End Date Tristin Ghotra MD [address] [place] [address] [address] [place] [address] PCP - General 04/04/12 documented as of this encounter
--- OUTSIDE RECORDS SUMMARY | 2024-02-18 04:23 | XMS_ITS | Encounter Summary ---
Author Organization [facility] Address [address] [place] [address] Care Team Providers Care Learning Developer Name Role Phone Tristin Ghotra MD Primary Care Provider [phone] Reason for Visit * Reason Onset Date Comments Consent 05/27/2019 Pt. voiced under standing of TELEmed and gave verbal consent. Encounter Details Date Type Department Care Team (Late st Contact Info) Description 05/27/2019 Telephone [facility] - [address], [facility] [address] [place] [address] Matt Armstrong MD [address] [place] [address] Consent (Pt. voiced understanding of TELEmed [...] on filedocumented in this encounter Care Teams Learning Developer Relationship Specialty Start Date End Date Tristin Ghotra MD [address] [place] [address] [address] [place] [phone] PCP - General 04/04/12 documented as of this encounter
--- OUTSIDE RECORDS SUMMARY | 2024-02-18 04:23 | XMS_ITS | Referral Summary ---
Author Organization [facility] Address [address] [place] [address] Care Team Providers Care Manager Recovery Name Role Phone Tristin Ghotra MD Primary Care Provider [phone] Source Comments [facility],non-owned Affiliates and Associated Physician Practices is amultiple site organization consisting of ambulatory clinics and hospital sitesin [place], [place], [place] and [place]. This disclosure is being madepursuant to the Care Everywhere program and may not contain all information available regarding this patient. Last updated 17.[facility] Allergies No known active allergies Medications * [...] Diagnosed Date Elevated LFTs 09/06/2017 History of [place] (myocardial infarction) 09/06/2017 Overview (09/07/2017): Echo 09/2013 [...] of Treatment Not on file Care Teams Manager Recovery Relationship Specialty Start Date End Date Tristin Ghotra MD [address] [facility] [address] [place] [address] PCP - General 04/04/12
--- OUTSIDE RECORDS SUMMARY | 2024-02-18 04:23 | XMS_ITS | Encounter Summary ---
Author Organization [facility] Address [address] [place] [address] Care Team Providers Care Hydro Sprayer Operator Name Role Phone Tristin Ghotra MD Primary Care Provider [phone] Reason for Visit * Reason Comments Follow-up Encounter Details Date Type Department Care Team (Late st Contact Info) Description 05/30/2019 12:00 PM CDT Video Visit [facility] - [address], [facility] [address] [place] [phone] Matt Armstrong MD [address] [place] [address] [place] [address] Spontaneous dissection of coronary artery ; Essential hypertension; S/P coronary artery stent placement; History of near syncope; History of [place] (myocardial infarction); Elevated LFTs Social History Tobacco [...] consent for today's telehealth visit supported by [employer] secure platform. Weight up 1 lb since [...] Exercise - Works out on a Max Heel Wheeler the last 3 months. She does not like it. Does 30 min 4d/week. No bowel or bladder troubles. Menses are regular but heavy - Scalloper has advised a diagnostic study. Comprehensive system [...] file Gets together: Not on file Attends taoism service: Not on file Active member of [...] born in 2004. 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 Family History [...] placement History of near syncope History of [place] (myocardial infarction) Elevated LFTs 1. Spontaneous Coronary [...] 10. Taking Spironolactone at high dose per Control Clerk Food And Beverage for hair loss and scalp yeast. 11. [...] in 6 mo. Matt Armstrong III, MD, [facility] [email or web address] * Roxanne Epperson - 05/30/2019 11:27 AM [...] history of other specified diseases History of [place] (myocardial infarction) Old myocardial infarction Elevated LFTs Other abnormal blood chemistry documented in this encounter Care Teams Hydro Sprayer Operator Relationship Specialty Start Date End Date Tristin Ghotra MD [address] [place] [address] [address] [place] [address] PCP - General 04/04/12 documented as of this encounter
--- OUTSIDE RECORDS SUMMARY | 2024-02-18 04:23 | XMS_ITS | Encounter Summary ---
Author Organization [facility] Address [address] [place] [address] Care Team Providers Care Business Education Professor Name Role Phone Tristin Ghotra MD Primary Care Provider [phone] Reason for Visit * Reason Comments Establish Care Encounter Details Date Type Department Care Team (Late st Contact Info) Description 09/06/2017 8:30 AM CDT Office Visit [facility] - [address], [facility] [address] [place] [phone] Matt Armstrong MD [address] [place] [address] [place] [address] Spontaneous dissection of coronary artery (Primary Dx); Essential hypertension; History of [place] (myocardial infarction); Elevated LFTs; S/P coronary artery [...] about eight months ago - went to [facility] ([place], [place]) ER * Matt Armstrong MD - 09/06/2017 8:00 AM CDT Images [...] nausea. Went to , then promptly to [facility] where she was told she [...] and jaundice. Sees Dr. Hager (GI) in [place] and [place] (GI). Several liver biopsies have been inconclusive. Denies recent itching or jaundice. States bowels lately normal. But has abd bloating immediately after eating or drinking. Has beenRx'd an inhaler, but she has not used it. PFTs were thought OK. Has some increased flow lately w/ menses and planning Trimmer Hand visit soon. Otherwise, constitutional, HENT/neck, eyes, endocrine, CV, pulmonary, GI, , neuro, derm, heme, MSK, extremities are all negative. Patient Active Problem List Diagnosis Date Noted ??? Elevated LFTs 09/06/2017 Priority: Not Prioritized ??? History of [place] (myocardial infarction) 09/06/2017 Priority: Not Prioritized ??? [...] born in 2003. 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 She agrees to get back to moderate [...] angina, and has a known normal EF post-ND, no B-dylan is very reasonable. 10. Continue Ramipril. She is aware of precautions and prefers to continue it. She agreesto stop Ramipril immediately should she possibly be . 11. She will get a BP cuff and keep a home log. Numbers to us in a week. 12. Will request admission records from [place] and stenting admission. 13. Will attempt to find latest labs. 14. Spell of near passing out in early 2018 sounds vagal, as had been previously suggested to her. I advised of physiology, common occurrence, avoidance tactics and maneuvers. Stay well hydrated. 15. She agrees to check back in with her Biometric Technician. 16. Routine f/u with us in 6 weeks, or anytime sooner with concerns. Matt Armstrong III, MD, [facility] documented in this encounter Plan of Treatment Not on file documented as of this encounter Visit Diagnoses Diagnosis Spontaneous dissection of coronary artery- Primary Essential hypertension History of [place] (myocardial infarction) Old myocardial infarction Elevated LFTs Other abnormal blood chemistry S/P coronary artery stent placement Postsurgical percutaneous transluminal coronary angioplasty status History of near syncope Personal history of other specified diseases documented in this encounter Care Teams Business Education Professor Relationship Specialty Start Date End Date Tristin Ghotra MD [address] [place] [address] [address] [place] [address] PCP - General 04/04/12 documented as of this encounter
--- OUTSIDE RECORDS SUMMARY | 2024-02-18 04:23 | XMS_ITS | Encounter Summary ---
Author Organization [facility] Address [address] [facility] [place] [address] Care Team Providers Care Coin Machine Service Repairer Name Role Phone Tristin Ghotra MD Primary Care Provider [phone] Reason for Visit * Reason Onset Date Comments Erroneous encounter-disregard 11/21/2018 MEDICATION REFILL 11/21/2018 Encounter Details Date Type Department Care Team (Late st Contact Info) Description 11/21/2018 Refill [facility] - [address], [facility] [address] [place] [phone] Matt Armstrong MD [address] [place] [address] Erroneous encounter-disregard; MEDICATION REFILL Social History [...] on filedocumented in this encounter Care Teams Coin Machine Service Repairer Relationship Specialty Start Date End Date Tristin Ghotra MD [address] [facility] [address] [place] [address] PCP - General 04/04/12 documented as of this encounter
--- OUTSIDE RECORDS SUMMARY | 2024-02-18 04:23 | XMS_ITS | Encounter Summary ---
Author Organization [facility] Address [address] [place] [address] Care Team Providers Care Potato Spotter Name Role Phone Tristin Ghotra MD Primary Care Provider [phone] Reason for Visit * Reason Comments Follow-up Encounter Details Date Type Department Care Team (Late Contact Info) Description 10/09/2018 12:15 PM CDT Office Visit [facility] - [address], [facility] [address] [place] [phone] Matt Armstrong MD [address] [place] [address] [place] [address] Spontaneous dissection of coronary artery (Primary Dx); Essential hypertension; S/P coronary artery stent placement; History of [place] (myocardial infarction); Insomnia, unspecified type; Elevated LFTs; [...] troubles. Menses are regular but heavy - Effervescent Salts Compounder has advised a diagnostic study. Comprehensive system review is otherwise negative for constitutional, HENT, eyes, neck, musculoskeletal, derm, neuro, cardiovascular, pulmonary, extremities, vascular, endocrine, GI, . Patient Active Problem List Diagnosis Date Noted ??? Elevated LFTs 09/06/2017 Priority: Not Prioritized ??? History of [place] (myocardial infarction) 09/06/2017 Priority: Not Prioritized Echo [...] file Gets together: Not on file Attends scientologist service: Not on file Active member of [...] born in 2004. 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 Family History [...] S/P coronary artery stent placement History of [place] (myocardial infarction) Insomnia, unspecified type Elevated LFTs [...] persists. Had a sleep study with Dr. hGotra but she is unsure of results. 6. Taking Spironolactone at high dose per Biodiesel Division Manager for hair loss and scalp yeast. 7. [...] in 6 mo. Matt Armstrong III, MD, [facility] [email or web address] * Roxanne Epperson - 10/09/2018 12:06 PM [...] percutaneous transluminal coronary angioplasty status History of [place] (myocardial infarction) Old myocardial infarction Insomnia, unspecified type Elevated LFTs Other abnormal blood chemistry History of near syncope Personal history of other specified diseases documented in this encounter Care Teams Potato Spotter Relationship Specialty Start Date End Date Tristin Ghotra MD [address] [place] [address] [address] [place] [address] PCP - General 04/04/12 documented as of this encounter
--- OUTSIDE RECORDS SUMMARY | 2024-02-18 04:23 | XMS_ITS | Encounter Summary ---
Author Organization [facility] Address [address] [facility] [place] [facility] [place] [address] Care Team Providers Care Safety Tech Name Role Phone Tristin Ghotra MD Primary Care Provider [phone] Reason for Visit * Reason Onset Date Comments Results 04/11/2018 Sleep study Encounter Details Date Type Department Care Team (Late st Contact Info) Description 04/11/2018 Telephone [facility] - [address], [facility] [address] [place] [phone] Matt Armstrong MD [address] [place] [address] Results (Sleep study) Social History Tobacco [...] was pleased and thanked me for calling. R PACKER AND PICKER documented in this encounter Plan of Treatment Not on file documented as of this encounter Visit Diagnoses Not on filedocumented in this encounter Care Teams Safety Tech Relationship Specialty Start Date End Date Tristin Ghotra MD [address] [facility] [address] [place] [address] PCP - General 04/04/12 documented as of this encounter
--- OUTSIDE RECORDS SUMMARY | 2024-02-18 04:25 | XMS_ITS | Clinical Summary ---
Author Organization [facility] Address [address] [place] [address]. [place], [place] [address] [place] [address] Care Team Providers Care Cell Room Operator Name Role Phone Tristin Ghotra MD Primary Care Provider [phone] Medications No known medications Social History Tobacco [...] patient's age to complete this topic Insurance [employer] Care Teams Cell Room Operator Relationship Specialty Start Date End Date Tristin Ghotra MD [address] [facility] [address] [place] [address] PCP - General 02/18/13
--- OUTSIDE RECORDS SUMMARY | 2024-02-18 04:25 | XMS_ITS | Encounter Summary ---
Author Organization [facility] Address [address] [place] [address]. [place], [place] [address] [place] [address] Care Team Providers Care Animal Nutritionist Name Role Phone Tristin De Leon MD Primary Care Provider [phone] Reason for Referral * Imaging (Routine) - Closed Specialty Diagnoses / Procedures Referred By George cr Referred To Contact RADIOLOGY Diagnoses Abnormal levels of other serum enzymes Procedures US ABD LIMITED Tristin De Leon MD [address] [facility] [address] [place] [address] Phone: tel: fax: Referral ID Status Reason Start Date Expiration Date Visits Re quested Visits Authorized [id number] Closed 04/07/2023 04/07/2024 1 1 Reason for Visit * Imaging (Routine) - Closed Specialty Diagnoses / Procedures Referred By George cr Referred To Contact RADIOLOGY Diagnoses Abnormal levels of other serum enzymes Procedures US ABD LIMITED Tristin De Leon MD [address] [place] [address] Phone: tel: fax: Referral ID Status Reason Start Date Expiration Date Visits Re quested Visits Authorized [id number] Closed 04/07/2023 04/07/2024 1 1 Encounter Details Date Type Department Care Team (Latest Contact Info) Description 05/26/2023 9:58 AM CDT - 05/26/2023 11:59 PM CDT Hospital Encounter [facility] [address] [place] [address] [address] Tristin De Leon MD [address] [place] [address] Discharge Disposition: Home or Self [...] enzymes documented in this encounter Care Teams Animal Nutritionist Relationship Specialty Start Date End Date Tristin De Leon MD [address] [place] [address] 100 [place] [id number] PCP - General 02/18/13 documented as of this encounter
--- OUTSIDE RECORDS SUMMARY | 2024-02-18 04:25 | XMS_ITS | Encounter Summary ---
Author Organization [facility] Address [address] [place] [address]. [place], [place] [address] [place] [address] Care Team Providers Care Print Finishing Worker Name Role Phone Tristin De Leon MD Primary Care Provider [phone] Reason for Referral * Imaging (Routine) - Closed Specialty Diagnoses / Procedures Referred By George cr Referred To Contact RADIOLOGY Diagnoses Microscopic hematuria Other microscopic hematuria Procedures CT ABD+PEL WWO CON Tristin De Leon MD [address] [place] [address] Phone: tel: fax: Referral ID Status Reason Start Date Expiration Date Visits Re quested Visits Authorized [id number] Closed 05/15/2023 11/11/2023 1 1 Reason for Visit * Imaging (Routine) - Closed Specialty Diagnoses / Procedures Referred By Contsavita cr Referred To Contact RADIOLOGY Diagnoses Microscopic hematuria Other microscopic hematuria Procedures CT ABD+PEL WWO CON Tristin De Leon MD [address] [place] [address] Phone: tel: fax: Referral ID Status Reason Start Date Expiration Date Visits Re quested Visits Authorized [id number] Closed 05/15/2023 11/11/2023 1 1 Encounter Details Date Type Department Care Team (Latest Contact Info) Description 05/20/2023 2:02 PM CDT - 05/20/2023 11:59 PM CDT Hospital Encounter [facility] [address] [place] [address] Tristin De Leon MD 331 [facility] 100 [place] [address] Discharge Disposition: Home or Self [...] Arm documented in this encounter Care Teams Print Finishing Worker Relationship Specialty Start Date End Date Tristin De Leon MD 331 [facility] [address] [place] [address] PCP - General 02/18/13 documented as of this encounter
--- OUTSIDE RECORDS SUMMARY | 2024-02-18 04:25 | XMS_ITS | Encounter Summary ---
Author Organization [facility] Address [address] [place] [address]. [place], [place] [address] [place] [address] Care Team Providers Care Check Scaler Name Role Phone Tristin Ghotra MD Primary Care Provider [phone] Reason for Referral * Imaging (Routine) - Closed Specialty Diagnoses / Procedures Referred By Contac t Referred To Contact RADIOLOGY Diagnoses Lymphadenopathy Shortness of breath Night sweats Procedures CT CHEST W CON CT CHEST W Bryant Hernandez MD [address] [place] [address] Phone: tel: fax: Referral ID Status Reason Start Date Expiration Date Visits Re quested Visits Authorized [id number] Closed 08/19/2020 11/17/2020 1 1 * Imaging (Routine) - Closed Specialty Diagnoses / Procedures Referred By Contac t Referred To Contact RADIOLOGY Diagnoses Lymphadenopathy Shortness of breath Night sweats Procedures CT SOFT TISSUE NECK W CON CT SOFT TISSUE NECK W CON Bryant Ochao MD [address] [place] [address] Phone: tel: fax: Referral ID Status Reason Start Date Expiration Date Visits Re quested Visits Authorized [id number] Closed 08/19/2020 11/17/2020 1 1 Reason for Visit * Imaging (Routine) - Closed Specialty Diagnoses / Procedures Referred By Contac t Referred To Contact RADIOLOGY Diagnoses Lymphadenopathy Shortness of breath Night sweats Procedures CT SOFT TISSUE NECK W CON CT SOFT TISSUE NECK W CON Bryant Ochoa MD [address] [place] [address] Phone: tel: fax: Referral ID Status Reason Start Date Expiration Date Visits Re quested Visits Authorized [id number] Closed 08/19/2020 11/17/2020 1 1 Encounter Details Date Type Department Care Team (Latest Contact Info) Description 08/21/2020 3:06 PM CDT - 08/21/2020 11:59 PM CDT Hospital Encounter [facility] CT [address] [facility] [place], [place] [id number] Bryant Ochoa MD [address] [place] [address] Discharge Disposition: Home or Self Care [...] Arm documented in this encounter Care Teams Check Scaler Relationship Specialty Start Date End Date Tristin Ghotra MD 331 [facility] 100 [place] [address] PCP - General 02/18/13 documented as of this encounter
--- OUTSIDE RECORDS SUMMARY | 2024-02-18 04:25 | XMS_ITS | Encounter Summary ---
Author Organization [facility] Address [address] [place] [address]. [place], [place] [address] [place] [address] Care Team Providers Care Foamite Mixer Name Role Phone Tristin Ghotra MD Primary Care Provider Encounter Details Date Type Department Care Team [...] on filedocumented in this encounter Care Teams Foamite Mixer Relationship Specialty Start Date End Date Tristin Ghotra MD [address] [place] [address] PCP - General 02/18/13 documented as of this encounter
--- OUTSIDE RECORDS SUMMARY | 2024-02-18 04:25 | XMS_ITS | Encounter Summary ---
Author Organization [facility] Address [address] [place] [address]. [place], [place] [address] [place] [address] Care Team Providers Care Equities Trader Name Role Phone Tristin Ghotra MD Primary Care Provider [phone] Encounter Details Date Type Department Care Team [...] on filedocumented in this encounter Care Teams Equities Trader Relationship Specialty Start Date End Date Tristin Ghotra MD [address] [facility] 100 [place] [address] PCP - General 02/18/13 documented as of this encounter
--- OUTSIDE RECORDS SUMMARY | 2024-02-18 04:25 | XMS_ITS | Encounter Summary ---
Author Organization [facility] Address [address] [place] [address]. [place], [place] [address] [place] [address] Care Team Providers Care Manager Costing Name Role Phone Tristin Ghotra MD Primary Care Provider [phone] Encounter Details Date Type Department Care Team [...] on filedocumented in this encounter Care Teams Manager Costing Relationship Specialty Start Date End Date Tristin Ghotra MD 331 [facility] 100 [place] [address] PCP - General 02/18/13 documented as of this encounter
--- OUTSIDE RECORDS SUMMARY | 2024-02-18 04:25 | XMS_ITS | Encounter Summary ---
Author Organization [facility] Address [address] [place] [address]. [place], [place] [address] [place] [address] Care Team Providers Care Manual Lathe Machinist Name Role Phone Tristin Ghotra MD Primary Care Provider [phone] Encounter Details Date Type Department Care Team (Late st Contact Info) Description 02/18/2013 Abstract [facility] [address] [facility] [address] [place] [address] Humphrey Mcgraw MD [address] [facility] [place] [address] Social History Tobacco Use Types Packs/Day Years [...] loss documented in this encounter Care Teams Manual Lathe Machinist Relationship Specialty Start Date End Date Tristin Ghotra MD [address] [place] [address] PCP - General 02/18/13 documented as of this encounter
--- OUTSIDE RECORDS SUMMARY | 2024-02-18 04:25 | XMS_ITS | Encounter Summary ---
Author Organization [facility] Address [address] [place] [address]. [place], [place] [address] [place] [address] Care Team Providers Care Hydraulic Oil Tool Operator Name Role Phone Tristin Ghotra MD Primary Care Provider [phone] Encounter Details Date Type Department Care Team [...] on filedocumented in this encounter Care Teams Hydraulic Oil Tool Operator Relationship Specialty Start Date End Date Tristin Ghotra MD [address] [place] [address] PCP - General 02/18/13 documented as of this encounter
--- OUTSIDE RECORDS SUMMARY | 2024-02-18 04:25 | XMS_ITS | Encounter Summary ---
Author Organization [facility] Address [address] [place] [address]. [place], [place] [address] [place] [address] Care Team Providers Care Sport Psychologist Name Role Phone Tristin Ghotra MD Primary Care Provider [phone] Reason for Referral * Imaging (Routine) - Closed Specialty Diagnoses / Procedures Referred By Contac t Referred To Contact RADIOLOGY Diagnoses Neck mass Procedures US SOFT TISS HEAD OR NECK Bryant Ochoa MD [address] [place] [address] Phone: tel: fax: Referral ID Status Reason Start Date Expiration Date Visits Re quested Visits Authorized [id number] Closed 08/09/2021 09/09/2022 1 1 Reason for Visit * Imaging (Routine) - Closed Specialty Diagnoses / Procedures Referred By Contac t Referred To Contact RADIOLOGY Diagnoses Neck mass Procedures US SOFT TISS HEAD OR NECK Bryant Ochoa MD [address] [place] [address] Phone: tel: fax: Referral ID Status Reason Start Date Expiration Date Visits Re quested Visits Authorized [id number] Closed 08/09/2021 09/09/2022 1 1 Encounter Details Date Type Department Care Team (Latest Contact Info) Description 08/20/2021 3:20 PM CDT - 08/20/2021 11:59 PM CDT Hospital Encounter [facility] [place] [address] Bryant Ochoa MD [facility] [address] [phone] Discharge Disposition: Home or Self Care (Routine [...] neck documented in this encounter Care Teams Sport Psychologist Relationship Specialty Start Date End Date Tristin Ghotra MD 331 [facility] [address] [place] [address] PCP - General 02/18/13 documented as of this encounter
--- OUTSIDE RECORDS SUMMARY | 2024-02-18 04:26 | XMS_ITS | Clinical Summary ---
Author Organization [facility] Address [address] [place] [address] Care Team Providers Care Space And Storage Clerk Name Role Phone Tristin Ghotra MD Primary Care Provider [phone] Allergies No known active allergies Medications aspirin 81 mg tablet take 1 tablet by oral route every day 0 0 4 Active amLODIPine (NORVASC) 5 mg tablet amlodipine 5 mg tablet TAKE 1 TABLET BY MOUTH EVERY DAY Active albuterol HFA (PROVENTIL HFA,VENTOLIN HFA,PROAIR HFA) 90 mcg/actuation inhaler albuterol sulfate HFA 90 mcg/actuation aerosol inhaler Active inhalational spacing device ([facility]) spacer 1 Device daily 1 each 2 [...] TABLET BY MOUTH TWICE DAILY Active mometasone-formot uvadlo (Dulera) 100-5 mcg/actuation inhalerIndication s:Severe persistent asthma [...] Type Department Care Team Description 12/19/2023 Telephone [facility] Specialty Services [address] [place] [address] Miscellaneous, Not In File from Last 3 [...] on file Legal Sex Female 3:22 AM STRADDLE CARRIER OPERATOR Gender Identity Female 06/27/2022 9:35 PM [...] MAMMOGRAM BILATERAL W NADIR 12/27/2018 2:46 PM STRADDLE CARRIER OPERATOR from Last 3 Months or Most Recently Relevant to Health Maintenance Results * Screening Mammogram Bilateral W Nadir (12/27/2018 2:46 PM STRADDLE CARRIER OPERATOR) Anatomical Region Laterality Modality Breast Bilateral Mammography 12/27/2018 3:37 PM STRADDLE CARRIER OPERATOR Narrative 12/28/2018 10:58 AM STRADDLE CARRIER OPERATOR Patient Name: RUDI MCKEON V ?Ordering Dr: Ahsan Street ?? D.O.B: 1975 ? Exam Date: 12/27/18 ?? 1446 ?? Age: 43 ?Sex: Female ? MR#: [id number] ?? Loc: ? RADIOLOGY REPORT ?? Order #[id number] ?? [facility] ? Breanna Bilat [...] age 41, based on guidelines of the [place] [employer] ?? [employer] (ACR Practice Parameter for the Performance of Screening and ?? Diagnostic Mammography) and [place] [employer]st[employer]ians and ?? Gynecologists. For women with an elevated risk of breast cancer, please refer ?? to the ACR Practice Parameter for specific screening recommendations. ? The patient will be entered into a reminder system with a target due date of 1 ?? year for her next screening exam. ? Electronically signed by: ?Sai Marcum M.D. ? ab/penrad:12/28/2018 10:58:37 ? Undercutter Operator: Kisha Dinh)(Caro) [facility] ?? letter sent: Normal Exam ? Reading location: ?? BI-RADS: 2 Benign ? REPORT ELECTRONICALLY SIGNED IN OTHER VENDOR SYSTEM ?? Resulting Agency Comment O Procedure Note Sai Marcum MD - 12/28/2018 Patient Name: RUDI MCKEON Leonor Dr: Ahsan Street D.O.B: 1975 Exam Date: 12/27/18 144 Age: 43 Sex: Female MR#: [id number] Loc: RADIOLOGY REPORT Order #[id number] [facility] Breanna Bilat Screening 3D Signed - [...] age 41, based on guidelines of the [place] [employer] (ACR Practice Parameter for the Performance of Screening and Diagnostic Mammography) and [place] [employer] and Gynec[employer]. For women with an elevated risk of breast cancer, pleaserefer to the ACR Practice Parameter for specific screening recommendations. The patient will be entered into a reminder system with a target due dateof 1 year for her next screening exam. Electronically signed by: Sia lyons/trish:12/28/2018 10:58:37 Undercutter Operator: Kisha DICKERSON (Vidhi)(M), [facility] letter sent: Normal Exam Reading location: BI-RADS: 2 Benign REPORT ELECTRONICALLY SIGNED IN OTHER VENDOR SYSTEM Ahsan Street MD IMG MAMMO PROCEDURES Final R esult from Last 3 Months or Most Recently Relevant to Health Maintenance Insurance [employer] OPEN ACCESS [employer] OPEN ACCESS [facility] Care Teams Space And Storage Clerk Relationship Specialty Start Date End Date Tristin Ghotra MD [address] [facility] [address] [place] [address] PCP - General 12/07/18
--- OUTSIDE RECORDS SUMMARY | 2024-02-18 04:26 | XMS_ITS | Encounter Summary ---
Author Organization [facility] Address [address] [place] [address] Care Team Providers Care Warp Knitter Name Role Phone Tristin Ghotra MD Primary Care Provider [phone] Reason for Visit * Reason Comments Follow-up Encounter Details Date Type Department Care Team (Late st Contact Info) Description 03/01/2022 9:15 AM SURGICAL ASSISTANT CERTIFIED Office Visit [facility] Pulmonology [address] [facility] [address] [place] [phone] Kate Carrasco MD [address] [facility] [address] [place], [place] [phone] Non-seasonal allergic rhinitis due to other allergic trigger (Primary Dx); Mild persistent asthma without complication Social History Tobacco Use Types Packs/Day Years Used Date Smoking Tobacco: Never Alcohol Use Standard Drinks/Week Comments Yes 0 (1 standard drink = 0.6 oz pur e alcohol) Comments Unknown Sex and Gender Information Value Date Recorded Sex Assigned at Not on file Legal Sex Female 3:22 AM SURGICAL ASSISTANT CERTIFIED Gender Identity Female 06/27/2022 9:35 PM CDT Sexual Orientation Not on file documented as of this encounter Last Filed Vital Signs Vital Sign Reading Time Taken Comments Blood Pressure 125/73 03/01/2022 9:09 AM SURGICAL ASSISTANT CERTIFIED Pulse 69 03/01/2022 9:09 AM SURGICAL ASSISTANT CERTIFIED Temperature - - Respiratory Rate 18 03/01/2022 9:09 AM SURGICAL ASSISTANT CERTIFIED Oxygen Saturation 97% 03/01/2022 9:09 AM SURGICAL ASSISTANT CERTIFIED Inhaled Oxygen Concentration - - Weight 72.5 kg (159 lb 12.8 oz) 03/01/2022 9:09 AM SURGICAL ASSISTANT CERTIFIED Height 175.3 cm (5' 9 ) 03/01/2022 9:09 AM SURGICAL ASSISTANT CERTIFIED Body Mass Index 23.6 03/01/2022 9:09 AM SURGICAL ASSISTANT CERTIFIED documented in this encounter Ordered Prescriptions Prescription [...] etoh. No drug use. 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 ICAL ASSISTANT CERTIFIED documented in this encounter Plan of Treatment [...] DAY added in this encounter Care Teams Warp Knitter Relationship Specialty Start Date End Date Tristin Ghotra MD 331 [facility] 100 [place] [address] PCP - General 12/07/18 documented as of this encounter
--- OUTSIDE RECORDS SUMMARY | 2024-02-18 04:26 | XMS_ITS | Encounter Summary ---
Author Organization [facility] Address [address] [place] [address] Care Team Providers Care Or Director Name Role Phone Tristin Ghotra MD Primary Care Provider [phone] Reason for Referral * (Routine) - Closed Specialty Diagnoses / Procedures Referred By George cr Referred To Contact Diagnoses Chronic rhinitis Mild persistent asthma without complication Dyspnea and respiratory abnormalities Procedures Pulmonary Function Test -[facility]; Full PFT in PFT Lab w/Stress Ox/6 Min Walk Test Kate Carrasco MD [address] [facility] [address] [place] [address] Phone: tel: fax: Referral ID Status Reason Start Date Expiration Date Visits Re quested Visits Authorized [id number] Closed 10/13/2021 11/12/2022 1 1 Reason for Visit * (Routine) - Closed Specialty Diagnoses / Procedures Referred By George cr Referred To Contact Diagnoses Chronic rhinitis Mild persistent asthma without complication Dyspnea and respiratory abnormalities Procedures Pulmonary Function Test -[facility]; Full PFT in PFT Lab w/Stress Ox/6 Min Walk Test Kate Carrasco MD [address] [facility] [address] [place] [address] Phone: tel: fax: Referral ID Status Reason Start Date Expiration Date Visits Re quested Visits Authorized [id number] Closed 10/13/2021 11/12/2022 1 1 Encounter Details Date Type Department Care Team (Latest Contact Info) Description 10/15/2021 1:56 PM CDT - 10/15/2021 11:59 PM CDT Hospital Encounter [facility] Respiratory Therapy [address] [place] [phone] Chronic rhinitis; Mild persistent asthma without complication; [...] on file Legal Sex Female 3:22 AM CLAIM CLINICIAN Gender Identity Female 06/27/2022 9:35 PM CDT [...] 0 09/27/2013 inhalational spacing device (Antonia Cordova [facility]) spacer 1 Device daily 1 each [...] Test - (10/15/2021 3:10 PM CDT) Pathologist [facility] FVC POST 3.04 2.79 - 4.47 L 10/15/2021 2:59 PM CDT [facility] FVC PRE 2.71(L) 2.79 - 4.47 L 10/15/2021 2:59 PM CDT [facility] FEV1 POST 2.11(L) 2.22 - 3.57 L 10/15/2021 2:59 PM CDT [facility] FEV1 PRE 1.53(L) 2.22 - 3.57 L 10/15/2021 2:59 PM CDT [facility] [id number] 69.23(L) 70.39 - 89.85 % 10/15/2021 2:59 PM CDT [facility] [id number] 56.53(L) 70.39 - 89.85 % 10/15/2021 2:59 PM CDT [facility] IXK39-10% POST 1.35(L) 1.47 - 4.71 L/s 10/15/2021 2:59 PM CDT [facility] MBR80-32% PRE 0.55(L) 1.47 - 4.71 L/s 10/15/2021 2:59 PM CDT [facility] PEF POST 4.18(L) 5.70 - 8.66 L/s 10/15/2021 2:59 PM CDT [facility] PEF PRE 3.63(L) 5.70 - 8.66 L/s 10/15/2021 2:59 PM CDT [facility] FET 100% POST 9.26 sec 10/15/2021 2:59 PM CDT [facility] FET 100% PRE 14.84 sec 10/15/2021 2:59 PM CDT [facility] FIVC POST 2.91(L) 3.12 - 4.50 L 10/15/2021 2:59 PM CDT [facility] FIVC PRE 2.47(L) 3.12 - 4.50 L 10/15/2021 2:59 PM CDT [facility] FIF50% POST 3.62 L/s 10/15/2021 2:59 PM CDT [facility] FIF50% PRE 3.03 L/s 10/15/2021 2:59 PM CDT [facility] DLCOc SB 23.85 22.31 - 33.78 ml/(min*mm Hg) 10/15/2021 2:59 PM CDT [facility] VA 4.42(L) 5.63 - 5.63 L 10/15/2021 2:59 PM CDT [facility] DLCO/VA PRE 5.40 3.56 - 6.15 ml/(min*mm Hg*L) 10/15/2021 2:59 PM CDT [facility] IC SB 1.85(L) 2.73 - 2.73 L 10/15/2021 2:59 PM CDT [facility] VC PRE 3.02(L) 3.12 - 4.50 L 10/15/2021 2:59 PM CDT [facility] TLC PRE 4.20(L) 4.79 - 6.76 L 10/15/2021 2:59 PM CDT [facility] RV PRE 1.18(L) 1.32 - 2.47 L 10/15/2021 2:59 PM CDT [facility] FRC PL PRE 2.79 2.15 - 3.79 L 10/15/2021 2:59 PM CDT [facility] ERV PRE 1.60(H) 1.08 - 1.08 L 10/15/2021 2:59 PM CDT [facility] IC PRE 1.41(L) 2.73 - 2.73 L 10/15/2021 2:59 PM CDT [facility] RAW PRE 2.25(L) 3.06 - 3.06 cmH2O*s/L 10/15/2021 2:59 PM CDT [facility] BF RES 16.17 BPM 10/15/2021 2:59 PM T [facility] Anatomical Region Laterality Modality PFT 10/15/2021 2:11 [...] abnormalities documented in this encounter Care Teams Or Director Relationship Specialty Start Date End Date Tristin Ghotra MD [address] [address] PCP - General 12/07/18 documented as of this encounter
--- OUTSIDE RECORDS SUMMARY | 2024-02-18 04:26 | XMS_ITS | Referral Summary ---
Author Organization [facility] Address [address] [place] [address] Care Team Providers Care Disc Pad Knockout Worker Name Role Phone Tristin Ghotra MD Primary Care Provider [phone] Encounters Date Type Department Care Team Description 12/19/2023 Telephone [facility] Specialty Services [address] [place] [address] Miscellaneous, Not In File from Last 3 [...] mcg/actuation aerosol inhaler Active inhalational spacing device ([facility]) spacer 1 Device daily 1 each [...] on file Legal Sex Female 3:22 AM STORE PROTECTION SPECIALIST Gender Identity Female 06/27/2022 9:35 PM CDT [...] MAMMOGRAM BILATERAL W NADIR 12/27/2018 2:46 PM STORE PROTECTION SPECIALIST from Last 3 Months or Most Recently Relevant to Health Maintenance Results * Screening Mammogram Bilateral W Nadir (12/27/2018 2:46 PM STORE PROTECTION SPECIALIST) Anatomical Region Laterality Modality Breast Bilateral Mammography 12/27/2018 3:37 PM STORE PROTECTION SPECIALIST Narrative 12/28/2018 10:58 AM STORE PROTECTION SPECIALIST Patient Name: RUDI MCKEON V ?Ordering Dr: Ahsan Street ?? D.O.B: 1975 ? Exam Date: 12/27/18 ?? 1446 ?? Age: 43 ?Sex: Female ? MR#: [id number] ?? Loc: ? RADIOLOGY REPORT ?? Order #[id number] ?? [facility] ? Breanna Bilat Screening 3D ? [...] age 41, based on guidelines of the [place] [employer] ?? [employer] (ACR Practice Parameter for the Performance of Screening and ?? Diagnostic Mammography) and [place] [employer]st[employer]ians and ?? Gynecologists. For women with an elevated risk of breast cancer, please refer ?? to the ACR Practice Parameter for specific screening recommendations. ? The patient will be entered into a reminder system with a target due date of 1 ?? year for her next screening exam. ? Electronically signed by: ?Sai Marcum M.D. ? ab/penrad:12/28/2018 10:58:37 ? Boiler Shop Supervisor: Kisha Dinh)(Caro), [facility] ?? letter sent: Normal Exam ? Reading location: ?? BI-RADS: 2 Benign ? REPORT ELECTRONICALLY SIGNED IN OTHER VENDOR SYSTEM ?? Resulting Agency Comment O Procedure Note Sai Marcum MD - 12/28/2018 Patient Name: RUDI MCKEON Dr: Ahsan Street D.O.B: 1975 Exam Date: 12/27/18 1446 Age: 43 Sex: Female MR#: [id number] Loc: RADIOLOGY REPORT Order #[id number] [facility] Breanna Bilat Screening 3D [...] age 41, based on guidelines of the [place] [employer] (ACR Practice Parameter for the Performance of Screening and Diagnostic Mammography) and [place] [employer] Gynec[employer]. For women with an elevated risk of breast cancer, pleaserefer to the ACR Practice Parameter for specific screening recommendations. The patient will be entered into a reminder system with a target due dateof 1 year for her next screening exam. Electronically signed by: Sai lyons/trish:12/28/2018 10:58:37 Boiler Shop Supervisor: Kisha Dinh)(Caro), [facility] letter sent: Normal Exam Reading location: BI-RADS: 2 Benign REPORT ELECTRONICALLY SIGNED IN OTHER VENDOR SYSTEM us Ahsan Street MD IMG MAMMO PROCEDURES Final R esult from Last 3 Months or Most Recently Relevant to Health Maintenance Insurance [employer] [facility] Care Teams Disc Pad Knockout Worker Relationship Specialty Start Date End Date Tristin Ghotra MD [address] [facility] [address] [place] [address] PCP - General 12/07/18
--- OUTSIDE RECORDS SUMMARY | 2024-02-18 04:26 | XMS_ITS | Encounter Summary ---
Author Organization [facility] Address [address] [facility] [address] [place] [address] Care Team Providers Care Rivet Heater Gas Name Role Phone Tristin Ghotra MD Primary Care Provider [phone] Reason for Visit * Reason Comments Follow-up Encounter Details Date Type Department Care Team (Late st Contact Info) Description 06/28/2022 9:15 AM CDT Office Visit [facility] Pulmonology [address] [facility] [address] [place] [address] Kate Carrasco MD [address] [facility] [address] [place] [address] Severe persistent asthma without complication (Primary Dx); Chronic rhinitis Social History Tobacco Use Types Packs/Day Years Used Date Smoking Tobacco: Never Alcohol Use Standard Drinks/Week Comments Yes 0 (1 standard drink = 0.6 oz pur e alcohol) Comments Unknown Sex and Gender Information Value Date Recorded Sex Assigned at Not on file Legal Sex Female 3:22 AM BRADLEY LINEBACKER CREWMEMBER Gender Identity Female 06/27/2022 9:35 PM CDT [...] etoh. No drug use. 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
--- OUTSIDE RECORDS SUMMARY | 2024-02-18 04:26 | XMS_ITS | Encounter Summary ---
Author Organization [facility] Address [address] [place] [address] Care Team Providers Care Supervisor Sawmill Name Role Phone Tristin Ghotra MD Primary Care Provider [phone] Encounter Details Date Type Department Care Team (Late st Contact Info) Description 12/19/2023 Telephone [facility] Specialty Services [address] [place] [phone] Miscellaneous, Not In File Social History Tobacco Use Types Packs/Day Years Used Date Smoking Tobacco: Never Alcohol Use Standard Drinks/Week Comments Yes 0 (1 standard drink = 0.6 oz pur e alcohol) Comments Unknown Sex and Gender Information Value Date Recorded Sex Assigned at Not on file Legal Sex Female 3:22 AM HAND CLOTH EXAMINER Gender Identity Female 06/27/2022 9:35 PM CDT Sexual Orientation Not on file documented as of this encounter Miscellaneous Notes * Telephone Encounter - Arpit Nava - 12/19/2023 8:12 AM CDT Contacted referring office requesting labs documented in this encounter Plan of Treatment Not on file documented as of this encounter Visit Diagnoses Not on filedocumented in this encounter Care Teams Supervisor Sawmill Relationship Specialty Start Date End Date Tristin Ghotra MD [address] [place] [address] PCP - General 12/07/18 documented as of this encounter
--- OUTSIDE RECORDS SUMMARY | 2024-02-18 04:26 | XMS_ITS | Encounter Summary ---
Author Organization [facility] Address [address] [facility] [address] [place] [address] Care Team Providers Care Production Control Clerk Name Role Phone Tristin Ghotra MD Primary Care Provider [phone] Reason for Visit * Reason Onset Date Comments Request For Order(s) 10/14/2021 Encounter Details Date Type Department Care Team (Late st Contact Info) Description 10/14/2021 Telephone [facility] Pulmonology [address] [facility] [address] [place] [address] [place] [address] [place] [address] [address] [place] [address] Request For Order(s) Social History Tobacco Use Types Packs/Day Years Used Date Smoking Tobacco: Never Alcohol Use Standard Drinks/Week Comments Yes 0 (1 standard drink = 0.6 oz pur e alcohol) Comments Unknown Sex and Gender Information Value Date Recorded Sex Assigned at Not on file Legal Sex Female 3:22 AM PAIN MEDICINE PHYSICIAN Gender Identity Female 06/27/2022 9:35 PM CDT Sexual Orientation Not on file documented as of this encounter Ordered Prescriptions Prescription Sig Dispense Quantity Refills Last Filled Start Date End Date inhalational spacing device ([facility]) spacer 1 Device daily 1 each 10/14/2021 documented in this encounter Miscellaneous Notes * Telephone Encounter - Sola Mendiola MA - 10/14/2021 2:18 PM CDT Sent prescription for a spacer to [facility]. * Telephone Encounter - Inga Camacho - 10/14/2021 1:18 PM CDT Patient went to get her inhaler and they told her that she will need a spacer for this but they also need an order for the spacer. stated it should be sent to [facility] in [place]. documented in this encounter Plan of Treatment Not on file documented as of this encounter Visit Diagnoses Not on filedocumented in this encounter Care Teams Production Control Clerk Relationship Specialty Start Date End Date Tristin Ghotra MD [address] [facility] [address] [place] [address] PCP - General 12/07/18 documented as of this encounter
--- OUTSIDE RECORDS SUMMARY | 2024-02-18 04:26 | XMS_ITS | Encounter Summary ---
Author Organization [facility] Address [address] [facility] [address] [place] [address] Care Team Providers Care Gas Adjuster Name Role Phone Tristin Ghotra MD Primary Care Provider [phone] Reason for Visit * Reason Onset Date Comments Test Results 10/15/2021 Encounter Details Date Type Department Care Team (Late st Contact Info) Description 10/15/2021 Telephone [facility] Pulmonary at [address] [place] [address] Josefa Salvador LPN Test Results Social History Tobacco Use Types Packs/Day Years Used Date Smoking Tobacco: Never Alcohol Use Standard Drinks/Week Comments Yes 0 (1 standard drink = 0.6 oz pur e alcohol) Comments Unknown Sex and Gender Information Value Date Recorded Sex Assigned at Not on file Legal Sex Female 3:22 AM FILTER FILLER Gender Identity Female 06/27/2022 9:35 PM CDT [...] on filedocumented in this encounter Care Teams Gas Adjuster Relationship Specialty Start Date End Date Tristin Ghotra MD [address] [facility] [address] [place] [address] PCP - General 12/07/18 documented as of this encounter
--- OUTSIDE RECORDS SUMMARY | 2024-02-18 04:26 | XMS_ITS | Encounter Summary ---
Author Organization [facility] Address [address] [facility] [address] [place] [address] Care Team Providers Care Technical Support Agent Name Role Phone Tristin Ghotra MD Primary Care Provider [phone] Encounter Details Date Type Department Care Team (Late st Contact Info) Description 11/30/2021 1:30 PM CDT Office Visit [facility] Pulmonology [address] [facility] [address] [place] [address] Kate Carrasco MD [address] [facility] [address] [place] [address] Mild persistent asthma without complication (Primary Dx); Non-seasonal allergic rhinitis due to other allergic trigger Social History Tobacco Use Types Packs/Day Years Used Date Smoking Tobacco: Never Alcohol Use Standard Drinks/Week Comments Yes 0 (1 standard drink = 0.6 oz pur e alcohol) Comments Unknown Sex and Gender Information Value Date Recorded Sex Assigned at Not on file Legal Sex Female 3:22 AM CHEMIST ENZYMES Gender Identity Female 06/27/2022 9:35 PM CDT [...] etoh. No drug use. 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
--- OUTSIDE RECORDS SUMMARY | 2024-02-18 04:26 | XMS_ITS | Encounter Summary ---
Author Organization [facility] Address [address] [facility] [address] [place] [address] Care Team Providers Care Natural Developer Name Role Phone Tristin Ghotra MD Primary Care Provider Encounter Details Date Type Department Care Team (Late st Contact Info) Description 01/03/2022 Telephone [facility] Pulmonology [address] [facility] [address] [place] [address] Kate Carrasco MD [address] [place] [address] [address] [place] [address] Social History Tobacco Use Types Packs/Day Years Used Date Smoking Tobacco: Never Alcohol Use Standard Drinks/Week Comments Yes 0 (1 standard drink = 0.6 oz pur e alcohol) Comments Unknown Sex and Gender Information Value Date Recorded Sex Assigned at Not on file Legal Sex Female 3:22 AM CERTIFICATION ENGINEER Gender Identity Female 06/27/2022 9:35 PM [...] on: 01/07/2022 12:51 PM Modules accepted: Orders IFICATION ENGINEER * Telephone Encounter - Mitra Marcial RN - 01/03/2022 4:23 PM CERTIFICATION ENGINEER Medication verified and sent to pharmacy Last Visit: 11/30/2021 Follow Up: 03/01/2022 IFICATION ENGINEER * Telephone Encounter - Uma Mckeon - 01/03/2022 3:18 PM CST Pt called asking for a 90 day prescription for Symbicort be sent to [facility] in [place]. IFICATION ENGINEER documented in this encounter Plan of Treatment [...] documented as of this encounter Care Teams Natural Developer Relationship Specialty Start Date End Date Tristin Ghotra MD [address] [facility] [address] [place] [address] PCP - General 12/07/18 documented as of this encounter
--- OUTSIDE RECORDS SUMMARY | 2024-02-18 04:26 | XMS_ITS | Encounter Summary ---
Author Organization [facility] Address [address] [facility] [address] [place] [address] Care Team Providers Care Water Plant Pump Operator Name Role Phone Tristin Ghotra MD Primary Care Provider [phone] Reason for Visit * Reason Onset Date Comments Med Change Request 02/16/2022 Encounter Details Date Type Department Care Team (Late st Contact Info) Description 02/16/2022 Telephone [facility] Pulmonology [address] [facility] [address] [place] [phone] Sola Mendiola MA Med Change Request Social History Tobacco Use Types Packs/Day Years Used Date Smoking Tobacco: Never Alcohol Use Standard Drinks/Week Comments Yes 0 (1 standard drink = 0.6 oz pur e alcohol) Comments Unknown Sex and Gender Information Value Date Recorded Sex Assigned at Not on file Legal Sex Female 3:22 AM GAMING FLOOR SUPERVISOR Gender Identity Female 06/27/2022 9:35 PM CDT [...] Sola Mendiola MA - 02/16/2022 4:33 PM GAMING FLOOR SUPERVISOR Patient informed, sent Advair to pharmacy. NG FLOOR SUPERVISOR * Telephone Encounter - Kate Carrasco MD - 02/16/2022 3:28 PM CST Can try Advair HFA 110mcg dose or Dulera 100mcg NG FLOOR SUPERVISOR * Telephone Encounter - Sola Mendiola MA - 02/16/2022 3:11 PM GAMING FLOOR SUPERVISOR Patient called in stating that her insurance does not covered Symbicort any more and she is needinga new prescription, please advise. NG FLOOR SUPERVISOR documented in this encounter Plan of [...] documented as of this encounter Care Teams Water Plant Pump Operator Relationship Specialty Start Date End Date Tristin Ghotra MD [address] [facility] [address] [place] [address] PCP - General 12/07/18 documented as of this encounter
--- OUTSIDE RECORDS SUMMARY | 2024-02-18 04:27 | XMS_ITS | Encounter Summary ---
Author Organization [facility] Facility Care Team Providers Care Home Health Aide Caregiver Name Role Phone Unavailable Primary Care Provider Unavailabl e Encounter Details Date Type Department Care Team (Late st Contact Info) Description 05/26/2006 9:47 AM CDT - 05/26/2006 7:28 PM CDT Hospital Encounter [facility] Rigo Fraser MD [address] [place] [address] Social History Tobacco Use Types Packs/Day Years Used Date Smoking Tobacco: Never Assessed Comments Unknown Sex and Gender Information Value Date Recorded Sex Assigned at Not on file Legal Sex Female 3:22 AM TELEHEALTH CASE MANAGER Gender Identity Female 06/27/2022 9:35 PM CDT Sexual Orientation Not on file documented as of this encounter Plan of Treatment Not on file documented as of this encounter Visit Diagnoses Not on filedocumented in this encounter
--- OUTSIDE RECORDS SUMMARY | 2024-02-18 04:27 | XMS_ITS | Encounter Summary ---
Author Organization [facility] Facility Care Team Providers Care Radial Drill Press Operator Name Role Phone Unavailable Primary Care Provider Unavailabl e Encounter Details Date Type Department Care Team (Late st Contact Info) Description 04/17/2009 - 04/17/2009 11:59 PM ICE SKATING COACH Hospital Encounter [facility] Jorge Crowe MD [address] [place] [address] Abnormal results of liver function studies Social History Tobacco Use Types Packs/Day Years Used Date Smoking Tobacco: Never Assessed Comments Unknown Sex and Gender Information Value Date Recorded Sex Assigned at Not on file Legal Sex Female 3:22 AM ICE SKATING COACH Gender Identity Female 06/27/2022 9:35 PM CDT Sexual Orientation Not on file documented as of this encounter Plan of Treatment Not on file documented as of this encounter Visit Diagnoses Diagnosis Abnormal results of liver function studies Nonspecific abnormal results of liver function study documented in this encounter
--- OUTSIDE RECORDS SUMMARY | 2024-02-18 04:27 | XMS_ITS | Encounter Summary ---
Author Organization [facility] Address [address] [address] Care Team Providers Care Senior Account Manager Name Role Phone Tristin Ghotra MD Primary Care Provider [phone] Reason for Visit * Diagnostic Imaging (Routine) - Closed Specialty Diagnoses / Procedures Referred By Contac t Referred To Contact Diagnoses Chronic rhinitis Mild persistent asthma without complication Dyspnea and respiratory abnormalities Procedures X-ray chest 2 views Kate Carrasco MD [address] [address] Phone: tel: fax: [address] [address] Referral ID Status Reason Start Date Expiration Date Visits Re quested Visits Authorized [id number] Closed 10/13/2021 11/12/2022 1 1 Encounter Details Date Type Department Care Team (Latest Contact Info) Description 10/13/2021 2:15 PM CDT Ancillary Procedure [facility] Imaging at [address] [phone] Chronic rhinitis; Mild persistent asthma without complication; Dyspnea and respiratory abnormalities Social History Tobacco Use Types Packs/Day Years Used Date Smoking Tobacco: Never Alcohol Use Standard Drinks/Week Comments Yes 0 (1 standard drink = 0.6 oz pur e alcohol) Comments Unknown Sex and Gender Information Value Date Recorded Sex Assigned at Not on file Legal Sex Female 3:22 AM PE TEACHER Gender Identity Female 06/27/2022 9:35 PM [...] D: ??10/16/2021 8:28 PM T: Report ID: [id number] Reading Location: ??[id number] Procedure Note Edouard Parada MD - 10/16/2021 [...] Edouard Parada M.D. MJ T: Report ID: [id number] Reading Location: [id number] us Kate Carrasco MD IMG XR PROCEDURES Final Resul t documented in this encounter Visit Diagnoses Diagnosis Chronic rhinitis Mild persistent asthma without complication Dyspnea and respiratory abnormalities documented in this encounter Care Teams Senior Account Manager Relationship Specialty Start Date End Date Tristin Ghotra MD [address] [facility] [address] [place] [address] PCP - General 12/07/18 documented as of this encounter
--- OUTSIDE RECORDS SUMMARY | 2024-02-18 04:27 | XMS_ITS | Encounter Summary ---
Author Organization [facility] Healthcare Address [address] [place] [address] Care Team Providers Care Broadcaster Name Role Phone Tristin Ghotra MD Primary Care Provider [phone] Encounter Details Date Type Department Care Team (Latest Contact Info) Description 10/30/2013 9:08 AM CDT Hospital Encounter [facility] Edgar Hager MD [address] [place] [address] Other specified abnormal findings of blood chemistry Social History Tobacco Use Types Packs/Day Years Used Date Smoking Tobacco: Never Alcohol Use Standard Drinks/Week Comments Yes 0 (1 standard drink = 0.6 oz pur e alcohol) Comments Unknown Sex and Gender Information Value Date Recorded Sex Assigned at Not on file Legal Sex Female 3:22 AM FRONT END DRUPAL DEVELOPER Gender Identity Female 06/27/2022 9:35 PM [...] - 104 U/L 10/30/2013 9:47 AM CDT [facility] HISTORICAL RESULTS 10/30/2013 9:13 AM CDT 10/30/2013 9:15 AM CDT us Edgar Hager MD LAB BLOOD ORDERABLES Final Resu lt [facility] HISTORICAL RESULTS * (ABNORMAL) ALT (10/30/2013 9:13 AM CDT) ALT 94(H) 0 - 33 U/L 10/30/2013 9:47 AM CDT [facility] HISTORICAL RESULTS 10/30/2013 9:13 AM CDT 10/30/2013 9:15 AM CDT us Edgar Hager MD LAB BLOOD ORDERABLES Final Resu lt [facility] HISTORICAL RESULTS * (ABNORMAL) AST (10/30/2013 9:13 AM CDT) AST 72(H) 0 - 32 U/L 10/30/2013 9:47 AM CDT [facility] HISTORICAL RESULTS 10/30/2013 9:13 AM CDT 10/30/2013 9:15 AM CDT us Edgar Hager MD LAB BLOOD ORDERABLES Final Resu lt [facility] HISTORICAL RESULTS * Bilirubin, total and direct (10/30/2013 9:13 AM CDT) Total Bilirubin 0.6 0.0 - 1.2 mg/dL 10/30/2013 9:47 AM CDT [facility] HISTORICAL RESULTS Direct Bilirubin < 0.20 0.00 - 0.25 mg/dL 10/30/2013 9:47 AM CDT [facility] HISTORICAL RESULTS 10/30/2013 9:13 AM CDT 10/30/2013 9:15 AM CDT us Edgar Hager MD LAB BLOOD ORDERABLES Final Resu lt Performing Organization Address City/[facility]/ZIP Co de Phone Number [facility] HISTORICAL RESULTS * Albumin (10/30/2013 9:13 AM CDT) Albumin 4.3 3.5 - 5.2 g/dL 10/30/2013 9:47 AM CDT [facility] HISTORICAL RESULTS 10/30/2013 9:13 AM CDT 10/30/2013 9:15 AM CDT Edgar Hager MD LAB BLOOD ORDERABLES Final Resu lt [facility] HISTORICAL RESULTS documented in this encounter Visit Diagnoses Diagnosis Other specified abnormal findings of blood chemistry documented in this encounter Care Teams Broadcaster Relationship Specialty Start Date End Date Tristin Ghotra MD [address] [place] [address] PCP - General 10/11/13 12/06/18 documented as of this encounter
--- OUTSIDE RECORDS SUMMARY | 2024-02-18 04:27 | XMS_ITS | Encounter Summary ---
Author Organization [facility] Facility Care Team Providers Care Production Support Analyst Name Role Phone Unavailable Primary Care Provider Unavailabl e Encounter Details Date Type Department Care Team (Late st Contact Info) Description 01/10/2012 - 01/10/2012 11:59 PM CONTROL CLERK Hospital Encounter [facility] CLINCONV Jorge Crowe MD [address] [place] [address] Pruritic disorder Social History Tobacco Use Types Packs/Day Years Used Date Smoking Tobacco: Never Assessed Comments Unknown Sex and Gender Information Value Date Recorded Sex Assigned at Not on file Legal Sex Female 3:22 AM CONTROL CLERK Gender Identity Female 06/27/2022 9:35 PM CDT Sexual Orientation Not on file documented as of this encounter Plan of Treatment Not on file documented as of this encounter Visit Diagnoses Diagnosis Pruritic disorder Unspecified pruritic disorder documented in this encounter
--- OUTSIDE RECORDS SUMMARY | 2024-02-18 04:27 | XMS_ITS | Encounter Summary ---
Author Organization [facility] Healthcare Address [address] [place] [address] Care Team Providers Care Mri Manager Name Role Phone Tristin Ghotra MD Primary Care Provider [phone] Encounter Details Date Type Department Care Team (Late st Contact Info) Description 12/27/2018 2:45 PM GENERAL OFFICE DISPATCHER Hospital Encounter [facility] Ahsan Street MD [address] [facility] [address] [place] [address] Social History Tobacco Use Types Packs/Day Years Used Date Smoking Tobacco: Never Alcohol Use Standard Drinks/Week Comments Yes 0 (1 standard drink = 0.6 oz pur e alcohol) Comments Unknown Sex and Gender Information Value Date Recorded Sex Assigned at Not on file Legal Sex Female 3:22 AM GENERAL OFFICE DISPATCHER Gender Identity Female 06/27/2022 9:35 PM CDT [...] Comments GENERAL RADIOLOGY REPORT 12/28/2018 12:00 AM GENERAL OFFICE DISPATCHER SCREENING MAMMOGRAM BILATERAL W NADIR 12/27/2018 2:46 PM GENERAL OFFICE DISPATCHER documented in this encounter Results * GENERAL RADIOLOGY REPORT (12/28/2018 12:00 AM GENERAL OFFICE DISPATCHER) Anatomical Region Laterality Modality Radiographic Nikkie ging Narrative 12/28/2018 12:00 AM GENERAL OFFICE DISPATCHER Ordered by an unspecified provider. us Historical Provider MD ALLEN XR PROCEDURES Final R esult * Screening Mammogram Bilateral W Nadir (12/27/2018 2:46 PM GENERAL OFFICE DISPATCHER) Anatomical Region Laterality Modality Breast Bilateral Mammography 12/27/2018 3:37 PM GENERAL OFFICE DISPATCHER Narrative 12/28/2018 10:58 AM GENERAL OFFICE DISPATCHER Patient Name: RUDI MCKEON V ?Ordering Dr: Ahsan Street ?? D.O.B: 1975 ? Exam Date: 12/27/18 ?? 1446 ?? Age: 43 ?Sex: Female ? MR#: [id number] ?? Loc: ? RADIOLOGY REPORT ?? Order #[id number] ?? [facility] ? Breanna Bilat [...] age 41, based on guidelines of the [employer] ?? [employer] (ACR Practice Parameter for the Performance of Screening and ?? Diagnostic Mammography) and [employer] and ?? Gynecologists. For women with an elevated risk of breast cancer, please refer ?? to the ACR Practice Parameter for specific screening recommendations. ? The patient will be entered into a reminder system with a target due date of 1 ?? year for her next screening exam. ? Electronically signed by: ?Sai Marcum M.D. ? ab/penrad:12/28/2018 10:58:37 ? Embossing Unit Operator: Kisha DICKERSON (Vidhi)(Caro), [facility] ?? letter sent: Normal Exam ? Reading location: ?? BI-RADS: 2 Benign ? REPORT ELECTRONICALLY SIGNED IN OTHER VENDOR SYSTEM ?? Resulting Agency Comment O Procedure Note Sai Marcum MD - 12/28/2018 Patient Name: MELINDARUDI Dr: Ahsan Street D.O.B: 1975 Exam Date: 12/27/18 1446 Age: 43 Sex: Female MR#: [id number] Loc: RADIOLOGY REPORT Order #[id number] [facility] Breanna Bilat Screening 3D Signed - [...] age 41, based on guidelines of the [employer] (ACR Practice Parameter for the Performance of Screening and Diagnostic Mammography) and [employer]. For women with an elevated risk of breast cancer, pleaserefer to the ACR Practice Parameter for specific screening recommendations. The patient will be entered into a reminder system with a target due dateof 1 year for her next screening exam. Electronically signed by: Sai lyons/trish:12/28/2018 10:58:37 Embossing Unit Operator: Kisha Dinh)(Caro), [facility] letter sent: Normal Exam Reading location: BI-RADS: 2 Benign REPORT ELECTRONICALLY SIGNED IN OTHER VENDOR SYSTEM us Ahsan Street MD IMG MAMMO PROCEDURES Final R esult documented in this encounter Visit Diagnoses Not on filedocumented in this encounter Care Teams Mri Manager Relationship Specialty Start Date End Date Tristin Ghotra MD [address] [facility] [address] [place] [address] PCP - General 12/07/18 documented as of this encounter
--- OUTSIDE RECORDS SUMMARY | 2024-02-18 04:27 | XMS_ITS | Encounter Summary ---
Author Organization [facility] Healthcare Address [address] [place] [address] Care Team Providers Care Production Machinist Name Role Phone Unavailable Primary Care Provider Unavailabl e Encounter Details Date Type Department Care Team (Latest Contact Info) Description 04/16/2012 10:30 AM HEEL CASER Hospital Encounter [facility] OP Pedro Richards MD [address] [facility] [address] [address] Abdominal pain; Abnormal levels of other serum enzymes; Calculus of kidney Social History Tobacco Use Types Packs/Day Years Used Date Smoking Tobacco: Never Assessed Comments Unknown Sex and Gender Information Value Date Recorded Sex Assigned at Not on file Legal Sex Female 3:22 AM HEEL CASER Gender Identity Female 06/27/2022 9:35 PM CDT [...] TOTAL AND DIRECT Routine 04/16/2012 11:25 AM HEEL CASER ALT Routine 04/16/2012 11:25 AM HEEL CASER AST Routine 04/16/2012 11:25 AM HEEL CASER ALKALINE PHOSPHATASE Routine 04/16/2012 11:25 AM HEEL CASER ALBUMIN Routine 04/16/2012 11:[address] ABDOMEN PELVIS W WO CONTRAST Routine 04/16/2012 10:30 AM HEEL CASER documented in this encounter Results * (ABNORMAL) Alkaline phosphatase (04/16/2012 11:25 AM HEEL CASER) Alkaline Phosphatase 214(H) 35 - 104 U/L 04/16/2012 12:41 PM HEEL CASER [facility] HISTORICAL RESULTS 04/16/2012 11:2 5 AM HEEL CASER 04/16/2012 12:01 PM HEEL CASER us Pedro Richards MD LAB BLOOD ORDERABLES Final Result Performing Organization Address [facility] de Phone Number [facility] HISTORICAL RESULTS * (ABNORMAL) ALT (04/16/2012 11:25 AM HEEL CASER) ALT 446(H) 0 - 31 U/L 04/16/2012 12:41 PM HEEL CASER [facility] HISTORICAL RESULTS 04/16/2012 11:2 5 AM HEEL CASER 04/16/2012 12:01 PM HEEL CASER Pedro Richards MD LAB BLOOD ORDERABLES Final Result Performing Organization Address [facility] de Phone Number [facility] HISTORICAL RESULTS * (ABNORMAL) AST (04/16/2012 11:25 AM HEEL CASER) AST 237(H) 0 - 32 U/L 04/16/2012 12:41 PM HEEL CASER [facility] HISTORICAL RESULTS 04/16/2012 11:2 5 AM HEEL CASER 04/16/2012 12:01 PM HEEL CASER us Pedro Richards MD LAB BLOOD ORDERABLES Final Result Performing Organization Address [facility] Co de Phone Number [facility] HISTORICAL RESULTS * (ABNORMAL) Bilirubin, total and direct (04/16/2012 11:25 AM HEEL CASER) Total Bilirubin 1.9(H) 0.0 - 1.2 mg/dL Direct Bilirubin 1.05(H) 0.00 - 0.25 mg/dL 04/16/2012 11:2 5 AM HEEL CASER 04/16/2012 12:01 PM HEEL CASER Pedro Richards MD LAB BLOOD ORDERABLES Final Result Performing Organization Address [facility] Co de Phone Number [facility] HISTORICAL RESULTS * Albumin (04/16/2012 11:25 AM HEEL CASER) Pathologist [facility] Albumin 3.9 3.5 - 5.2 g/dL 04/16/2012 11:2 5 AM HEEL CASER 04/16/2012 12:01 PM HEEL CASER Pedro Richards MD LAB BLOOD ORDERABLES Final Result Performing Organization Address [facility] de Phone Number [facility] HISTORICAL RESULTS * CT Abdomen Pelvis W WO Contrast (04/16/2012 10:30 AM HEEL CASER) Anatomical Region Laterality Modality Body N/A Computed Tomogra phy 04/16/2012 10:3 0 AM HEEL CASER Narrative 04/17/2012 1:12 PM HEEL CASER EXAMINATION: ??CT of the abdomen and pelvis [...]
--- OUTSIDE RECORDS SUMMARY | 2024-02-18 04:27 | XMS_ITS | Encounter Summary ---
Author Organization [facility] Healthcare Address [address] [place] [address] Care Team Providers Care Member Of Technical Staff Name Role Phone Tristin Ghotra MD Primary Care Provider [phone] Encounter Details Date Type Department Care Team (Latest Contact Info) Description 12/01/2017 7:18 AM CDT Hospital Encounter [facility] OP Tristin Ghotra MD [address] [place] [address] Abnormal levels of other serum enzymes Social History Tobacco Use Types Packs/Day Years Used Date Smoking Tobacco: Never Alcohol Use Standard Drinks/Week Comments Yes 0 (1 standard drink = 0.6 oz pur e alcohol) Comments Unknown Sex and Gender Information Value Date Recorded Sex Assigned at Not on file Legal Sex Female 3:22 AM PRE PAROLE COUNSELING AIDE Gender Identity Female 06/27/2022 9:35 PM CDT [...] D: ??12/01/2017 2:12 PM T: Report ID: [id number] Reading Location: ??[id number] [EOD] Narrative 12/01/2017 2:15 PM CDT EXAM [...] by Isaac Jane D.O. T: Report ID: [id number] Reading Location: [place] [address] [EOD] us Tristin Ghotra MD IM US PROCEDURES Final Result documented in this encounter Visit Diagnoses Diagnosis Abnormal levels of other serum enzymes documented in this encounter Care Teams Member Of Technical Staff Relationship Specialty Start Date End Date Tristin Ghotra MD [address] [facility] [address] [place] [address] PCP - General 10/11/13 12/06/18 documented as of this encounter
--- OUTSIDE RECORDS SUMMARY | 2024-02-18 04:27 | XMS_ITS | Encounter Summary ---
Author Organization [facility] Care Team Providers Care Forest Fire Officer Name Role Phone Unavailable Primary Care Provider Unavailabl e Encounter Details Date Type Department Care Team (Late st Contact Info) Description 03/21/2012 - 03/21/2012 11:59 PM DEVELOPMENT ASSISTANT Hospital [facility] Jorge Crowe MD [address] [place] [address] Other specified disorders of biliary tract; Other specified abnormal findings of blood chemistry Social History Tobacco Use Types Packs/Day Years Used Date Smoking Tobacco: Never Assessed Comments Unknown Sex and Gender Information Value Date Recorded Sex Assigned at Not on file Legal Sex Female 3:22 AM DEVELOPMENT ASSISTANT Gender Identity Female 06/27/2022 9:35 PM CDT Sexual Orientation Not on file documented as of this encounter Plan of Treatment Not on file documented as of this encounter Procedures Procedure Name Priority Date/Time Associated Diagnosis Comments 3-D RENDERING ON MODALITY Routine 03/21/2012 2:20 PM DEVELOPMENT ASSISTANT MRI ABDOMEN W WO CONTRAST Routine 03/21/2012 2:20 PM DEVELOPMENT ASSISTANT BLOOD CREATININE, POINT OF CARE Routine 03/21/2012 1:33 PM DEVELOPMENT ASSISTANT DISCHARGE LABORATORY CUMULATIVE REPORT Routine 03/21/2012 12:00 AM DEVELOPMENT ASSISTANT documented in this encounter Results * 3-D Rendering on Modality (03/21/2012 2:20 PM DEVELOPMENT ASSISTANT) Anatomical Region Laterality Modality N/A Magnetic Resonan ce 03/21/2012 2:20 PM DEVELOPMENT ASSISTANT Narrative 03/22/2012 4:35 PM DEVELOPMENT ASSISTANT EVAN AVILA M.D. MELANIE ALBERT M.D. FINAL REPORT The radiology attending physician has personally reviewed this study, and has reviewed and/or edited this written report and agrees with it. ACC# ??Date Time ??Exam [id number] Mar 21, 2012 14:20:00 [id number] MRI Abdomen wwo contrast [id number] Mar 21, 2012 14:20:00 [id number] 3-D Rendering on Modality EXAMINATION: ?? 1. [...] These are nonspecific findings. Requested By: Jorge Crwoe ??Katia Dictated By: ?? MELANIE ALBERT M.D. [...] agrees with it. ACC# Date Time Exam [id number] Mar 21, 2012 14:20:00 [id number] MRI Abdomen wwo contrast [id number] Mar 21, 2012 14:20:00 83022 3-D Rendering on Modality EXAMINATION: 1. MAGNETIC [...] MRI Abdomen WWO Contrast (03/21/2012 2:20 PM DEVELOPMENT ASSISTANT) Anatomical Region Laterality Modality Body N/A Magnetic Resonan ce 03/21/2012 2:20 PM DEVELOPMENT ASSISTANT Narrative 03/22/2012 4:35 PM DEVELOPMENT ASSISTANT EVAN AVILA M.D. MELANIE ALBERT M.D. FINAL REPORT The radiology attending physician has personally reviewed this study, and has reviewed and/or edited this written report and agrees with it. ACC# ??Date Time ??Exam [id number] Mar 21, 2012 14:20:00 [id number] MRI Abdomen wwo contrast [id number] Mar 21, 2012 14:20:00 [id number] 3-D Rendering on Modality EXAMINATION: ?? 1. [...] agrees with it. ACC# Date Time Exam [id number] Mar 21, 2012 14:20:00 [id number] MRI Abdomen wwo contrast [id number] Mar 21, 2012 14:20:00 [id number] 3-D Rendering on Modality EXAMINATION: 1. MAGNETIC [...] creatinine, point of care (03/21/2012 1:33 PM DEVELOPMENT ASSISTANT) Creatinine, POC, bld 0.7 0.6 - 1.1 mg/dl HISTORICAL RESULTS Blood specimen (specimen) 03/21/2012 1:33 PM DEVELOPMENT ASSISTANT us Jorge Crowe MD LAB BLOOD ORDERABLES F inal Result HISTORICAL RESULTS * Discharge Laboratory Cumulative Report (03/21/2012 12:00 AM DEVELOPMENT ASSISTANT) 03/21/2012 Narrative HISTORICAL RESULTS - 03/21/2012 3:17 PM DEVELOPMENT ASSISTANT ?[facility] ?Department of Laboratories ? [address] [facility] [place] ? [place] [address] Patient Name: ??PAOLA MCKEON V Med Rec Number: [id number] Fin Number: ?[id number] Date: ?1975 Sex/Age: ? Female 37 years Admit Date: ?03/21/2012 Discharge Date: 03/21/2012 Doctor: ?Jorge Crowe Facility: ?[facility] Location: ?[facility] Chart Printed: 03/21/2012 15:17 ?? [...]
--- OUTSIDE RECORDS SUMMARY | 2024-02-18 04:27 | XMS_ITS | Encounter Summary ---
Author Organization [facility] Address [address] [address] Care Team Providers Care Executive Cyber Leader Name Role Phone Tristin Ghotra MD Primary Care Provider [phone] Encounter Details Date Type Department Care Team (Late st Contact Info) Description 10/13/2021 2:30 PM CDT Lab [facility] Outpatient Lab at [address] [phone] Chronic rhinitis Social History Tobacco Use Types Packs/Day Years Used Date Smoking Tobacco: Never Alcohol Use Standard Drinks/Week Comments Yes 0 (1 standard drink = 0.6 oz pur e alcohol) Comments Unknown Sex and Gender Information Value Date Recorded Sex Assigned at Not on file Legal Sex Female 3:22 AM ER MEDICAL TECHNICIAN Gender Identity Female 06/27/2022 9:35 PM CDT Sexual Orientation Not on file documented as of this encounter Plan of Treatment Not on file documented as of this encounter Visit Diagnoses Diagnosis Chronic rhinitis documented in this encounter Care Teams Executive Cyber Leader Relationship Specialty Start Date End Date Tristin Ghotra MD [address] [place] [address] PCP - General 12/07/18 documented as of this encounter
--- OUTSIDE RECORDS SUMMARY | 2024-02-18 04:27 | XMS_ITS | Encounter Summary ---
Author Organization [facility] Care Team Providers Care Rechecker Name Role Phone Tristin Ghotra MD Primary Care Provider [phone] Encounter Details Date Type Department Care Team (Late st Contact Info) Description 05/20/2015 - 05/20/2015 11:59 PM CDT [facility] [address] [place] [address] Social History Tobacco Use Types Packs/Day Years Used Date Smoking Tobacco: Never Alcohol Use Standard Drinks/Week Comments Yes 0 (1 standard drink = 0.6 oz pur e alcohol) Comments Unknown Sex and Gender Information Value Date Recorded Sex Assigned at Not on file Legal Sex Female 3:22 AM CENTER MANAGER Gender Identity Female 06/27/2022 9:35 PM [...] every day 30 0 09/27/2013 11/30/2021 ursodioL (EDAGR FORTE) 500 mg tablet daily 04/19/2012 06/28/2022 documented as of this encounter Plan of Treatment Not on file documented as of this encounter Visit Diagnoses Not on filedocumented in this encounter Care Teams Rechecker Relationship Specialty Start Date End Date Tristin Ghotra MD [address] [place] [address] [address] [place] [address] PCP - General 10/11/13 12/06/18 documented as of this encounter
--- OUTSIDE RECORDS SUMMARY | 2024-02-18 04:27 | XMS_ITS | Encounter Summary ---
Author Organization [facility] Healthcare Address [address] [place] [address] Care Team Providers Care Fish Protector Name Role Phone Tristin Ghotra MD Primary Care Provider [phone] Encounter Details Date Type Department Care Team (Latest Contact Info) Description 10/30/2013 7:47 AM CDT Hospital Encounter [facility] Edgar Hager MD [address] [place], [place] [id number] Obstruction of bile duct; Other specified abnormal findings of blood chemistry; Abdominal pain Social History Tobacco Use Types Packs/Day Years Used Date Smoking Tobacco: Never Alcohol Use Standard Drinks/Week Comments Yes 0 (1 standard drink = 0.6 oz pur e alcohol) Comments Unknown Sex and Gender Information Value Date Recorded Sex Assigned at Not on file Legal Sex Female 3:22 AM TRAFFIC CONTROLLER CABLE Gender Identity Female 06/27/2022 9:35 PM CDT [...] Grider M.D. AT:stefany 10:58 AM 11:05 AM [facility] [EOD] Narrative 10/30/2013 4:30 PM CDT EXAMINATION: [...] Grider M.D. AT:stefany 10:58 AM 11:05 AM [facility] [EOD] Edgar Hager MD IM MRI PROCEDURES Final Result documented in this encounter Visit Diagnoses Diagnosis Obstruction of bile duct Other specified abnormal findings of blood chemistry Abdominal pain Abdominal pain, unspecified site documented in this encounter Care Teams Fish Protector Relationship Specialty Start Date End Date Tristin Ghotra MD [address] [place] [phone] PCP - General 10/11/13 12/06/18 documented as of this encounter
--- OUTSIDE RECORDS SUMMARY | 2024-02-18 04:27 | XMS_ITS | Encounter Summary ---
Author Organization [facility] Healthcare Address [address] [place] [address] Care Team Providers Care Public Service Director Name Role Phone Unavailable Primary Care Provider Unavailabl e Encounter Details Date Type Department Care Team (Latest Contact Info) Description 03/27/2012 1:21 PM LEAD VULCANIZING OPERATOR - 03/29/2012 1:00 PM LEAD VULCANIZING OPERATOR Hospital Encounter [facility] Edgar Hager MD [address] [place] [address] Other specified disorders of biliary tract Social History Tobacco Use Types Packs/Day Years Used Date Smoking Tobacco: Never Assessed Comments Unknown Sex and Gender Information Value Date Recorded Sex Assigned at Not on file Legal Sex Female 3:22 AM LEAD VULCANIZING OPERATOR Gender Identity Female 06/27/2022 9:35 PM CDT Sexual Orientation Not on file documented as of this encounter Last Filed Vital Signs Vital Sign Reading Time Taken Comments Blood Pressure 134/77 03/29/2012 7:33 AM LEAD VULCANIZING OPERATOR Pulse 68 03/29/2012 7:33 AM LEAD VULCANIZING OPERATOR Temperature 36.8 ??C (98.3 ??F) 03/29/2012 7:33 AM CS T Respiratory Rate - - Oxygen Saturation 93% 03/29/2012 7:33 AM LEAD VULCANIZING OPERATOR Inhaled Oxygen Concentration - - Weight 63.5 kg (140 lb) 03/29/2012 7:33 AM LEAD VULCANIZING OPERATOR Height 175.3 cm (5' 9 ) 03/29/2012 7:33 AM LEAD VULCANIZING OPERATOR Body Mass Index 20.67 03/29/2012 7:33 AM LEAD VULCANIZING OPERATOR documented in this encounter Medications at Time of Discharge cholestyramine (QUESTRAN) 4 gram packet TAKE 1 PACKET 3 TIMES DAILY in juice 03/23/2012 06/28/2022 documented as of this encounter Plan of Treatment Not on file documented as of this encounter Procedures Procedure Name Priority Date/Time Associated Diagnosis Comments OXYGEN SATURATION, ARTERIAL Routine 03/29/2012 7:41 AM LEAD VULCANIZING OPERATOR CBC WITH AUTO DIFFERENTIAL Routine 03/29/2012 7:02 AM LEAD VULCANIZING OPERATOR OXYGEN SATURATION, ARTERIAL Routine 03/28/2012 1:00 PM LEAD VULCANIZING OPERATOR OXYGEN SATURATION, ARTERIAL Routine 03/28/2012 7:31 AM LEAD VULCANIZING OPERATOR documented in this encounter Results * Oxygen saturation, arterial (03/29/2012 7:41 AM LEAD VULCANIZING OPERATOR) Specimen Type Oximeter 03/29/2012 8:59 AM LEAD VULCANIZING OPERATOR [employer] HISTORICAL RESULTS Puncture Site FINGER 03/29/2012 8:59 AM [facility] [employer] HISTORICAL RESULTS O2 Sat Pulse Oximetry 96.0 >=90.0 % 03/29/2012 8:59 AM LEAD VULCANIZING OPERATOR [facility] [employer] HISTORICAL RESULTS FiO2 21.0 % 03/29/2012 8:59 AM [facility] [employer] HISTORICAL RESULTS Leaded Glass Installer ID [id number] 03/29/2012 8:59 AM [facility] [employer] HISTORICAL RESULTS 03/29/2012 7:41 AM LEAD VULCANIZING OPERATOR 03/29/2012 8:58 AM LEAD VULCANIZING OPERATOR Edgar Hager MD LAB BLOOD ORDERABLES Final Resu lt [facility] [employer] HISTORICAL RESULTS * (ABNORMAL) CBC with auto differential (03/29/2012 7:02 AM LEAD VULCANIZING OPERATOR) WBC 7.8 4.6 - 10.2 x10 3/ul 03/29/2012 8:02 AM [facility] [employer] HISTORICAL RESULTS RBC 3.55(L) 3.76 - 4.80 x10 6/ul 03/29/2012 8:02 AM [facility] [employer] HISTORICAL RESULTS Hemoglobin 11.4 11.0 - 15.0 g/dl 03/29/2012 8:02 AM LEAD VULCANIZING OPERATOR [facility] [employer] HISTORICAL RESULTS Hct 33.8 33.0 - 43.0 % 03/29/2012 8:02 AM LEAD VULCANIZING OPERATOR [facility] [employer] [email or web address] HISTORICAL RESULTS MCV 95.2 80.0 - 97.0 fl 03/29/2012 8:02 AM LEAD VULCANIZING OPERATOR [email or web address] HISTORICAL RESULTS MCH 32.1(H) 27.0 - 31.2 pg 03/29/2012 8:02 AM [employer] [facility] [employer] HISTORICAL RESULTS MCHC 33.7 31.8 - 35.4 g/dl 03/29/2012 8:02 AM [employer] [facility] [employer] HISTORICAL RESULTS RDW 12.8 11.6 - 14.8 % 03/29/2012 8:02 AM [employer] [facility] [employer] HISTORICAL RESULTS Plt Count 205 124 - 400 x10 3/ul 03/29/2012 8:02 AM [employer] [facility] [employer] HISTORICAL RESULTS MPV 12.4(H) 7.4 - 10.4 fl 03/29/2012 8:02 AM [employer] [facility] [employer] HISTORICAL RESULTS Differential Method AUTOMATED DIFF --------- -- 03/29/2012 8:02 AM [employer] [facility] [employer] HISTORICAL RESULTS Neut % 72.2 37.0 - 85.0 % 03/29/2012 8:02 AM [employer] [facility] [employer] HISTORICAL RESULTS Immature Gran % 0.3 0.0 - 3.0 % 03/29/2012 8:02 AM [employer] [facility] [employer] HISTORICAL RESULTS Lymph % 19.7 5.0 - 45.0 % 03/29/2012 8:02 AM [employer] [facility] [employer] [email or web address] HISTORICAL RESULTS [place] % 6.4 3.0 - 15.0 % 03/29/2012 8:02 AM [employer] [facility] [employer] HISTORICAL RESULTS Eos % 1.3 0.0 - 7.0 % 03/29/2012 8:02 AM [employer] [facility] [employer] HISTORICAL RESULTS Baso % 0.1 0.0 - 2.0 % 03/29/2012 8:02 AM [employer] [facility] [employer] HISTORICAL RESULTS ABSOLUTE COUNTS ABSOLUTE COUNTS --------- -- 03/29/2012 8:02 AM [employer] [facility] [employer] HISTORICAL RESULTS Absolute Neuts (auto) 5.6 1.7 - 8.7 x10 3/ul 03/29/2012 8:02 AM [employer] [facility] [employer] HISTORICAL RESULTS Immature Gran # 0.0 0.0 - 0.3 x10 3/ul Absolute Lymphs (auto) 1.5 0.2 - 4.6 x10 3/ul 03/29/2012 8:02 AM LEAD VULCANIZING OPERATOR [facility] HISTORICAL RESULTS Absolute Monos (auto) 0.5 0.1 - 1.5 x10 3/ul Absolute Eos (auto) 0.1 0.0 - 0.7 x10 3/ul 03/29/2012 8:02 AM LEAD VULCANIZING OPERATOR [facility] HISTORICAL RESULTS Absolute Basos (auto) 0.0 0.0 - 0.2 x10 3/ul 03/29/2012 7:02 AM LEAD VULCANIZING OPERATOR 03/29/2012 7:36 AM LEAD VULCANIZING OPERATOR us Allyssa Tucker MD LAB BLOOD ORDERABLES Final Result [facility] HISTORICAL RESULTS * Oxygen saturation, arterial (03/28/2012 1:00 PM LEAD VULCANIZING OPERATOR) Specimen Type Oximeter Puncture Site FINGER O2 Sat Pulse Oximetry 97.0 >=90.0 % FiO2 21.0 % Leaded Glass Installer ID [id number] 03/28/2012 1:00 PM LEAD VULCANIZING OPERATOR 03/28/2012 2:10 PM LEAD VULCANIZING OPERATOR us Edgar Hager MD LAB BLOOD ORDERABLES Final Resu lt Performing Organization Address [facility]/State/ZIP Co de Phone Number [facility] HISTORICAL RESULTS * Oxygen saturation, arterial (03/28/2012 7:31 AM LEAD VULCANIZING OPERATOR) Specimen Type Oximeter 03/28/2012 8:09 AM LEAD VULCANIZING OPERATOR [email or web address] HISTORICAL RESULTS Puncture Site FINGER 03/28/2012 8:09 AM LEAD VULCANIZING OPERATOR [facility] HISTORICAL RESULTS O2 Sat Pulse Oximetry 97.0 >=90.0 % 03/28/2012 8:09 AM LEAD VULCANIZING OPERATOR [facility] HISTORICAL RESULTS FiO2 21.0 % 03/28/2012 8:09 AM LEAD VULCANIZING OPERATOR [facility] HISTORICAL RESULTS Leaded Glass Installer ID [id number] 03/28/2012 8:09 AM LEAD VULCANIZING OPERATOR [facility] HISTORICAL RESULTS 03/28/2012 7:31 AM LEAD VULCANIZING OPERATOR 03/28/2012 8:09 AM LEAD VULCANIZING OPERATOR us Edgar Hager MD LAB BLOOD ORDERABLES Final Resu lt [facility] HISTORICAL RESULTS documented in this encounter Visit Diagnoses Diagnosis Other specified disorders of biliary tract documented in this encounter
--- OUTSIDE RECORDS SUMMARY | 2024-02-18 04:27 | XMS_ITS | Encounter Summary ---
Author Organization [facility] Address [address] [place] [address] Phone Care Team Providers Care Logistics System Engineer Name Role Phone Tristin Ghotra MD Primary Care Provider [phone] Reason for Visit * Reason Onset Date Comments Test Results 09/14/2020 Encounter Details Date Type Department Care Team (Late st Contact Info) Description 09/14/2020 Telephone [facility] Otolaryngology [address] [place] [id number] Jaclyn Briones Test Results Social History Tobacco Use Types Packs/Day Years Used Date Smoking Tobacco: Never Alcohol Use Standard Drinks/Week Comments Yes 0 (1 standard drink = 0.6 oz pur e alcohol) Comments Unknown Sex and Gender Information Value Date Recorded Sex Assigned at Not on file Legal Sex Female 3:22 AM TARGET WORKER Gender Identity Female 06/27/2022 9:35 PM [...] on filedocumented in this encounter Care Teams Logistics System Engineer Relationship Specialty Start Date End Date Tristin Ghotra MD [address] [address] PCP - General 12/07/18 documented as of this encounter
--- OUTSIDE RECORDS SUMMARY | 2024-02-18 04:27 | XMS_ITS | Encounter Summary ---
Author Organization [facility] Facility Care Team Providers Care Pork Cutlet Maker Name Role Phone Tristin Ghotra MD Primary Care Provider [phone] Encounter Details Date Type Department Care Team (Latest Contact Info) Description 05/20/2015 9:10 AM CDT - 05/20/2015 11:59 PM CDT Hospital Encounter [facility] Mason Waldrop MD [address] [facility] [address] [place] [address] Atherosclerotic heart disease of [place] coronary artery without angina pectoris; Coronary artery dissection; Essential (primary) hypertension Social History Tobacco Use Types Packs/Day Years Used Date Smoking Tobacco: Never Alcohol Use Standard Drinks/Week Comments Yes 0 (1 standard drink = 0.6 oz pur e alcohol) Comments Unknown Sex and Gender Information Value Date Recorded Sex Assigned at Not on file Legal Sex Female 3:22 AM PRINTER ASSISTANT Gender Identity Female 06/27/2022 9:35 PM [...] Plasma lipid panel (05/20/2015 9:18 AM CDT) [facility] Cholesterol 164 30 - 200 mg/dl HISTORICAL [...] Visit Diagnoses Diagnosis 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
--- OUTSIDE RECORDS SUMMARY | 2024-02-18 04:27 | XMS_ITS | Encounter Summary ---
Author Organization [facility] Healthcare Address [address] [place] [address] Care Team Providers Care Vice President Business Development Name Role Phone Tristin Ghotra MD Primary Care Provider [phone] Encounter Details Date Type Department Care Team (Late st Contact Info) Description 07/17/2019 9:08 AM CDT Hospital Encounter [facility] Edgar Hager MD [address] [place] [address] Social History Tobacco Use Types Packs/Day Years Used Date Smoking Tobacco: Never Alcohol Use Standard Drinks/Week Comments Yes 0 (1 standard drink = 0.6 oz pur e alcohol) Comments Unknown Sex and Gender Information Value Date Recorded Sex Assigned at Not on file Legal Sex Female 3:22 AM NAIL FEEDER Gender Identity Female 06/27/2022 9:35 PM CDT [...] ?? Age: 44 ?Sex: Female ? MR#: [id number] ?? Loc: ? RADIOLOGY REPORT ?? Order #[id number] ?? Magnetic Resonance Imaging ? MRI Abdomen [...] T: ??07/17/2019 10:09 AM ? Report ID: [id number] ?? Reading Location: ??[id number] ? REPORT ELECTRONICALLY SIGNED IN OTHER VENDOR SYSTEM ?? Resulting Agency Comment O Procedure Note Yash Gonzalez MD - 07/17/2019 Patient Name: MELINDAPAOLAKassandra Galvez Dr: Edgar Hager MD D.O.B: 1975 Exam Date: 07/17/19 0949 Age: 44 Sex: Female MR#: [id number] Loc: RADIOLOGY REPORT Order #[id number] Magnetic Resonance Imaging MRI Abdomen Signed EXAM [...] by Yash Gonzalez M.D. JR: Report ID: [id number] Reading Location: [id number] REPORT ELECTRONICALLY SIGNED IN OTHER VENDOR SYSTEM Edgar Hager MD IM MRI PROCEDURES Final Result documented in this encounter Visit Diagnoses Not on filedocumented in this encounter Care Teams Vice President Business Development Relationship Specialty Start Date End Date Tristin Ghotra MD [address] [facility] [address] [place] [address] PCP - General 12/07/18 documented as of this encounter
--- OUTSIDE RECORDS SUMMARY | 2024-02-18 04:27 | XMS_ITS | Encounter Summary ---
Author Organization [facility] Address [address] [place] [address] Phone Care Team Providers Care Mental Health Professional Name Role Phone Tristin Ghotra MD Primary Care Provider [phone] Reason for Referral * Consultation (Routine) - Closed Specialty Diagnoses / Procedures Referred By George cr Referred To Contact Otolaryngology Diagnoses Enlarged tonsils Tristin Ghotra MD [address] [place] [address] Phone: tel: fax: [facility] (All Locations) Referral ID Status Reason Start Date Expiration Date V isits Requested Visits Authorized [id number] Closed Specialty Services Required 08/27/2020 09/26/2021 99 99 Question Answer Please select the performing region: [facility] (All Locations) [167] # of visits: 1 Reason for Visit * Reason Comments Enlarged Tonsils * Consultation (Routine) - Closed Specialty Diagnoses / Procedures Referred By George cr Referred To Contact Otolaryngology Diagnoses Enlarged tonsils Tristin Ghotra MD [address] [place] [address] Phone: tel: fax: [facility] (All Locations) Referral ID Status Reason Start Date Expiration Date V isits Requested Visits Authorized [id number] Closed Specialty Services Required 08/27/2020 09/26/2021 99 99 Encounter Details Date Type Department Care Team (Late st Contact Info) Description 09/03/2020 3:30 PM CDT Office Visit [facility] [address] [place] [address] Salinas Pandya II, MD [address] [place] [address] Enlarged tonsils (Primary Dx); Lymphadenopathy of left cervical region Social History Tobacco Use Types Packs/Day Years Used Date Smoking Tobacco: Never Alcohol Use Standard Drinks/Week Comments Yes 0 (1 standard drink = 0.6 oz pur e alcohol) Comments Unknown Sex and Gender Information Value Date Recorded Sex Assigned at Not on file Legal Sex Female 3:22 AM PARTS SALES ADVISOR Gender Identity Female 06/27/2022 9:35 PM CDT [...] Gatherings with Friends and Family: ??? Attends Religion Services: ??? Active Member of Clubs or [...] is clear saliva flow from Stensen's and Busy's ducts bilaterally. LYMPHATIC: No cervical lymphadenopathy except [...] Referral Reason: Specialty Services Required Referral Location: [facility] (All Locations) Requested Specialty: Otolaryngology Number [...] her CT scan images. This is from [facility] and I do not see any mass [...] documented as of this encounter Care Teams Mental Health Professional Relationship Specialty Start Date End Date Tristin Ghotra MD [address] [place] [address] PCP - General 12/07/18 documented as of this encounter
--- OUTSIDE RECORDS SUMMARY | 2024-02-18 04:27 | XMS_ITS | Encounter Summary ---
Author Organization [facility] Healthcare Address [address] [place] [address] Care Team Providers Care Corn Crop Supervisor Name Role Phone Unavailable Primary Care Provider Unavailabl e Encounter Details Date Type Department Care Team (Latest Contact Info) Description 04/10/2012 11:10 AM NURSE SUBSTANCE ABUSE Hospital Encounter [facility] Edgar Hager MD [address] [place] [address] Acute pancreatitis; Abdominal pain Social History Tobacco Use Types Packs/Day Years Used Date Smoking Tobacco: Never Assessed Comments Unknown Sex and Gender Information Value Date Recorded Sex Assigned at Not on file Legal Sex Female 3:22 AM NURSE SUBSTANCE ABUSE Gender Identity Female 06/27/2022 9:35 PM CDT [...] CBC WITHOUT DIFFERENTIAL Routine 04/10/2012 11:15 AM NURSE SUBSTANCE ABUSE BILIRUBIN, TOTAL AND DIRECT Routine 04/10/2012 11:15 AM NURSE SUBSTANCE ABUSE LIPASE Routine 04/10/2012 11:15 AM NURSE SUBSTANCE ABUSE AMYLASE Routine 04/10/2012 11:15 AM NURSE SUBSTANCE ABUSE COMPREHENSIVE METABOLIC PANEL Routine 04/10/2012 11:15 AM NURSE SUBSTANCE ABUSE documented in this encounter Results * (ABNORMAL) Comprehensive metabolic panel (04/10/2012 11:15 AM NURSE SUBSTANCE ABUSE) Sodium 134(L) 135 - 145 mmol/L 04/10/2012 5:39 PM [facility] [employer] HISTORICAL RESULTS Potassium 3.6 3.3 - 5.1 mmol/L 04/10/2012 5:39 PM [facility] [employer] HISTORICAL RESULTS Chloride 99 96 - 108 mmol/L 04/10/2012 5:39 PM [facility] [employer] HISTORICAL RESULTS Carbon Dioxide 28 22 - 32 mmol/L 04/10/2012 5:39 PM [employer] [facility] [employer] [facility] HISTORICAL RESULTS Anion Gap 7 Glucose 66(L) 70 - 110 mg/dL BUN 7 6 - 20 mg/dL 04/10/2012 5:39 PM [facility] [employer] [facility] HISTORICAL RESULTS Creatinine 0.5 0.5 - 1.1 mg/dL 04/10/2012 5:39 PM NURSE SUBSTANCE ABUSE [facility] [employer] [facility] HISTORICAL RESULTS Kidney Disease Stage > 90 mL/MIN 04/10/2012 5:39 PM NURSE SUBSTANCE ABUSE [facility] [employer] [facility] [employer] HISTORICAL RESULTS Comment: NOTE; ??The GFR is [...] - 104 U/L 04/10/2012 11:1 5 AM NURSE SUBSTANCE ABUSE 04/10/2012 12:20 PM NURSE SUBSTANCE ABUSE us Edgar Hager MD LAB BLOOD ORDERABLES Final Resu lt [facility] HISTORICAL RESULTS * (ABNORMAL) CBC without differential (04/10/2012 11:15 AM NURSE SUBSTANCE ABUSE) WBC 8.0 4.6 - 10.2 x10 3/ul [...] - 10.4 fl 04/10/2012 11:1 5 AM NURSE SUBSTANCE ABUSE 04/10/2012 12:20 PM NURSE SUBSTANCE ABUSE Edgar Hager MD LAB BLOOD ORDERABLES Final Resu lt [facility] HISTORICAL RESULTS * Lipase (04/10/2012 11:15 AM NURSE SUBSTANCE ABUSE) Lipase 49 13 - 60 U/L 04/10/2012 11:1 5 AM NURSE SUBSTANCE ABUSE 04/10/2012 12:20 PM NURSE SUBSTANCE ABUSE Edgar Hager MD LAB BLOOD ORDERABLES Final Resu lt [facility] HISTORICAL RESULTS * Amylase (04/10/2012 11:15 AM NURSE SUBSTANCE ABUSE) Amylase 78 28 - 100 U/L 04/10/2012 1:02 PM NURSE SUBSTANCE ABUSE [facility] HISTORICAL RESULTS 04/10/2012 11:1 5 AM NURSE SUBSTANCE ABUSE 04/10/2012 12:20 PM NURSE SUBSTANCE ABUSE Result [facility] Edgar Hager MD LAB BLOOD ORDERABLES Final Resu lt [facility] [employer] HISTORICAL RESULTS * (ABNORMAL) Bilirubin, total and direct (04/10/2012 11:15 AM NURSE SUBSTANCE ABUSE) Direct Bilirubin 0.82(H) 0.00 - 0.25 mg/dL 04/10/2012 1:02 PM NURSE SUBSTANCE ABUSE [facility] [employer] HISTORICAL RESULTS 04/10/2012 11:1 5 AM NURSE SUBSTANCE ABUSE 04/10/2012 12:20 PM NURSE SUBSTANCE ABUSE Edgar Hager MD LAB BLOOD ORDERABLES Final Resu lt Performing Organization Address City/[facility]/ZIP Co de Phone Number [facility] [employer] HISTORICAL RESULTS documented in this encounter Visit Diagnoses Diagnosis Acute pancreatitis Abdominal pain Abdominal pain, unspecified site documented in this encounter
--- OUTSIDE RECORDS SUMMARY | 2024-02-18 04:27 | XMS_ITS | Encounter Summary ---
Author Organization [facility] Healthcare Address [address] [place] [address] Care Team Providers Care Analytical Engineer Name Role Phone Unavailable Primary Care Provider Unavailabl e Encounter Details Date Type Department Care Team (Latest Contact Info) Description 06/13/2012 4:04 PM CDT Hospital Encounter [facility] Edgar Hager MD [address] [place] [address] Abnormal levels of other serum enzymes; Pruritic disorder; Abdominal pain Social History Tobacco Use Types Packs/Day Years Used Date Smoking Tobacco: Never Assessed Comments Unknown Sex and Gender Information Value Date Recorded Sex Assigned at Not on file 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 Gender Identity Female 06/27/2022 9:35 PM CDT [...] 10.2 x10 3/ul 06/13/2012 5:02 PM CDT [facility] [employer] HISTORICAL RESULTS RBC 3.94 3.76 - 4.80 x10 6/ul 06/13/2012 5:02 PM CDT [employer] HISTORICAL RESULTS Hemoglobin 12.6 11.0 - 15.0 g/dl 06/13/2012 5:02 PM CDT [facility] [employer] HISTORICAL RESULTS Hct 37.1 33.0 - 43.0 % 06/13/2012 5:02 PM CDT [facility] [employer] HISTORICAL RESULTS MCV 94.2 80.0 - 97.0 fl 06/13/2012 5:02 PM CDT [facility] [employer] HISTORICAL RESULTS MCH 32.0(H) 27.0 - 31.2 pg 06/13/2012 5:02 PM CDT [facility] [employer] HISTORICAL RESULTS MCHC 34.0 31.8 - 35.4 g/dl 06/13/2012 5:02 PM CDT [facility] [employer] HISTORICAL RESULTS RDW 12.5 11.6 - 14.8 % 06/13/2012 5:02 PM CDT [facility] [employer] HISTORICAL RESULTS Plt Count 212 124 - 400 x10 3/ul 06/13/2012 5:02 PM CDT [facility] [employer] HISTORICAL RESULTS MPV 10.8(H) 7.4 - 10.4 fl 06/13/2012 5:02 PM CDT [facility] [employer] HISTORICAL RESULTS 06/13/2012 4:28 PM CDT 06/13/2012 4:46 PM CDT Edgar Hager MD LAB BLOOD ORDERABLES Final Resu lt Performing Organization Address [facility]/ZIP Co de Phone Number [facility] HISTORICAL RESULTS * Lipase (06/13/2012 4:28 PM CDT) Lipase 30 13 - 60 U/L 06/13/2012 4:28 PM CDT 06/13/2012 4:46 PM CDT Edgar Hager MD LAB BLOOD ORDERABLES Final Resu lt Performing Organization Address [facility] Phone Number [facility] HISTORICAL RESULTS * Amylase (06/13/2012 4:28 PM CDT) Amylase 72 28 - 100 U/L 06/13/2012 4:28 PM CDT 06/13/2012 4:46 PM CDT Edgar Hager MD LAB BLOOD ORDERABLES Final Resu lt Performing Organization Address [facility] de Phone Number [facility] HISTORICAL RESULTS * Alkaline phosphatase (06/13/2012 4:28 PM CDT) Alkaline Phosphatase 75 35 - 104 U/L 06/13/2012 4:28 PM CDT 06/13/2012 4:46 PM CDT Edgar Hager MD LAB BLOOD ORDERABLES Final Resu lt Performing Organization Address [facility] Co de Phone Number [facility] HISTORICAL RESULTS * ALT (06/13/2012 4:28 PM CDT) ALT 15 0 - 31 U/L 06/13/2012 4:28 PM CDT 06/13/2012 4:46 PM CDT us Edgar Hager MD LAB BLOOD ORDERABLES Final Resu lt Performing Organization Address [facility] Co de Phone Number [facility] HISTORICAL RESULTS * AST (06/13/2012 4:28 PM CDT) AST 17 0 - 32 U/L 06/13/2012 4:28 PM CDT 06/13/2012 4:46 PM CDT us Edgar Hager MD LAB BLOOD ORDERABLES Final Resu lt Performing Organization Address [facility] de Phone Number [facility] HISTORICAL RESULTS * Bilirubin, total and direct (06/13/2012 4:28 PM CDT) Total Bilirubin 0.4 0.0 - 1.2 mg/dL Direct Bilirubin < 0.20 0.00 - 0.25 mg/dL 06/13/2012 4:28 PM CDT 06/13/2012 4:46 PM CDT us Edgar Hager MD LAB BLOOD ORDERABLES Final Resu lt Performing Organization Address [facility] Co de Phone Number [facility] HISTORICAL RESULTS documented in this encounter Visit Diagnoses Diagnosis Abnormal levels of other serum enzymes Pruritic disorder Unspecified pruritic disorder Abdominal pain Abdominal pain, unspecified site documented in this encounter
--- OUTSIDE RECORDS SUMMARY | 2024-02-18 04:27 | XMS_ITS | Encounter Summary ---
Author Organization 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
--- OUTSIDE RECORDS SUMMARY | 2024-02-18 04:27 | XMS_ITS | Encounter Summary ---
Author Organization [facility] Facility Care Team Providers Care Brazing Machine Setter Name Role Phone Unavailable Primary Care Provider Unavailabl e Encounter Details Date Type Department Care Team (Late st Contact Info) Description 05/01/2009 - 05/01/2009 11:59 PM SALES RECRUITMENT SPECIALIST Hospital Encounter [facility] Jorge Crowe MD [address] [place] [address] Pruritic disorder; Calculus of gallbladder Social History Tobacco Use Types Packs/Day Years Used Date Smoking Tobacco: Never Assessed Comments Unknown Sex and Gender Information Value Date Recorded Sex Assigned at Not on file Legal Sex Female 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
--- OUTSIDE RECORDS SUMMARY | 2024-02-18 04:27 | XMS_ITS | Encounter Summary ---
Author Organization [facility] Address [address] [facility] [address] [place] [address] Care Team Providers Care Search Analyst Name Role Phone Tristin Ghotra MD Primary Care Provider [phone] Reason for Referral * Diagnostic Imaging (Routine) - Closed Specialty Diagnoses / Procedures Referred By Contac t Referred To Contact Diagnoses Chronic rhinitis Mild persistent asthma without complication Dyspnea and respiratory abnormalities Procedures X-ray chest 2 views Kate Carrasco MD [facility] [facility] [address] [place] [address] Phone: tel: fax: [facility] [address] [place] [phone] Referral ID Status Reason Start Date Expiration Date Visits Re quested Visits Authorized [id number] Closed 10/13/2021 11/12/2022 1 1 * (Routine) - Closed Specialty Diagnoses / Procedures Referred By Contsavita t Referred To Contact Diagnoses Chronic rhinitis Mild persistent asthma without complication Dyspnea and respiratory abnormalities Procedures Pulmonary Function Test -[facility]; Full PFT in PFT Lab w/Stress Ox/6 Min Walk Test Kate Carrasco MD [address] [facility] [address] [place] [address] Phone: tel: fax: Referral ID Status Reason Start Date Expiration Date Visits Re quested Visits Authorized [id number] Closed 10/13/2021 11/12/2022 1 1 Reason for Visit * Reason Comments Shortness of Breath Cough Encounter Details Date Type Department Care Team (Late st Contact Info) Description 10/13/2021 11:15 AM CDT Office Visit [facility] Pulmonary at [address] [phone] Kate Carrasco MD [address] [facility] [address] [address] Chronic rhinitis (Primary Dx); Mild persistent asthma without complication; Dyspnea and respiratory abnormalities Social History Tobacco Use Types Packs/Day Years Used Date Smoking Tobacco: Never Alcohol Use Standard Drinks/Week Comments Yes 0 (1 standard drink = 0.6 oz pur e alcohol) Comments Unknown Sex and Gender Information Value Date Recorded Sex Assigned at Not on file 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 No drug use. 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 [...] 4.47 L 10/15/2021 2:59 PM CDT [facility] FVC PRE 2.71(L) 2.79 - 4.47 L 10/15/2021 2:59 PM CDT [facility] FEV1 POST 2.11(L) 2.22 - 3.57 L 10/15/2021 2:59 PM CDT [facility] FEV1 PRE 1.53(L) 2.22 - 3.57 L 10/15/2021 2:59 PM CDT [facility] [id number] 69.23(L) 70.39 - 89.85 % 10/15/2021 2:59 PM CDT [facility] [id number] 56.53(L) 70.39 - 89.85 % 10/15/2021 2:59 PM CDT [facility] ULM67-44% POST 1.35(L) 1.47 - 4.71 L/s 10/15/2021 2:59 PM CDT [facility] WFU12-25% PRE 0.55(L) 1.47 - 4.71 L/s 10/15/2021 2:59 PM CDT [facility] PEF POST 4.18(L) 5.70 - 8.66 L/s 10/15/2021 2:59 PM CDT [facility] PEF PRE 3.63(L) 5.70 - 8.66 L/s 10/15/2021 2:59 PM CDT [facility] FET 100% POST 9.26 sec 10/15/2021 2:59 PM CDT [facility] FET 100% PRE 14.84 sec 10/15/2021 2:59 PM CDT [facility] FIVC POST 2.91(L) 3.12 - 4.50 L 10/15/2021 2:59 PM CDT [facility] FIVC PRE 2.47(L) 3.12 - 4.50 L 10/15/2021 2:59 PM CDT [facility] FIF50% POST 3.62 L/s 10/15/2021 2:59 PM CDT [facility] FIF50% PRE 3.03 L/s 10/15/2021 2:59 PM CDT [facility] DLCOc SB 23.85 22.31 - 33.78 ml/(min*mm Hg) 10/15/2021 2:59 PM CDT [facility] VA 4.42(L) 5.63 - 5.63 L 10/15/2021 2:59 PM CDT [facility] DLCO/VA PRE 5.40 3.56 - 6.15 ml/(min*mm Hg*L) 10/15/2021 2:59 PM CDT [facility] IC SB 1.85(L) 2.73 - 2.73 L 10/15/2021 2:59 PM CDT [facility] VC PRE 3.02(L) 3.12 - 4.50 L 10/15/2021 2:59 PM CDT [facility] TLC PRE 4.20(L) 4.79 - 6.76 L 10/15/2021 2:59 PM CDT [facility] RV PRE 1.18(L) 1.32 - 2.47 L 10/15/2021 2:59 PM CDT [facility] FRC PL PRE 2.79 2.15 - 3.79 L 10/15/2021 2:59 PM CDT [facility] ERV PRE 1.60(H) 1.08 - 1.08 L 10/15/2021 2:59 PM CDT [facility] IC PRE 1.41(L) 2.73 - 2.73 L 10/15/2021 2:59 PM CDT [facility] RAW PRE 2.25(L) 3.06 - 3.06 cmH2O*s/L 10/15/2021 2:59 PM CDT [facility] BF RES 16.17 BPM 10/15/2021 2:59 PM T [facility] Anatomical Region Laterality Modality PFT 10/15/2021 2:11 [...] D: ??10/16/2021 8:28 PM T: Report ID: [id number] Reading Location: ??[id number] Procedure Note Edouard Parada MD - 10/16/2021 [...] signed by Edouard SOTO T: Report ID: [id number] Reading Location: [id number] us Kate Carrasco MD IMG XR PROCEDURES Final Resul t * Allergen Birch common silver (tree) IgE (10/13/2021 2:13 PM CDT) Birch common silver IgE <0.10 0.00 - 0.34 kUnits/L [facility] Comment:Testing performed by : [facility], [place]., [address] Blood 10/13/2021 2:13 PM CDT 10/14/2021 1:11 PM CDT Kate Carrasco MD LAB BLOOD ORDERABLES Final Re sult Performing Organization Address City/[facility]/ZIP Co de Phone Number FRED [address] [place] [address] * Allergen Elm (tree) IgE (10/13/2021 2:13 PM CDT) Pathologist [facility] Elm IgE 0.10 0.00 - 0.34 kUnits/L [facility] Comment:Testing performed by : [facility], [place]., [address] Blood 10/13/2021 2:13 PM CDT 10/14/2021 1:11 PM CDT Kate Carrasco MD LAB BLOOD ORDERABLES Final Re sult FRED [address] [address] [facility] [place] [address] * Allergen Maple/Box elder (tree) IgE (10/13/2021 2:13 PM CDT) Maple/box elder IgE <0.10 0.00 - 0.34 kUnits/L [facility] Comment:Testing performed by : [facility], [place]., [address] Blood 10/13/2021 2:13 PM CDT 10/14/2021 1:11 PM CDT Kate Carrasco MD LAB BLOOD ORDERABLES Final Re sult Performing Organization Address [facility] [place] [address] [address] [facility] [place] [employer] [address] * Allergen Mountain juniper (tree) IgE (10/13/2021 2:13 PM CDT) Mountain juniper IgE 0.15 0.00 - 0.34 kUnits/L [facility] Comment:Testing performed by : [facility], [place]., [address] Blood 10/13/2021 2:13 PM CDT 10/14/2021 1:11 PM CDT Kate Carrasco MD LAB BLOOD ORDERABLES Final Re sult Performing Organization Address [facility] Co de Phone Number HUSAMKATHRYN [address] [facility] [place] [address] * Allergen Decatur (tree) IgE (10/13/2021 2:13 PM CDT) Decatur IgE <0.10 0.00 - 0.34 kUnits/L [facility] Comment:Testing performed by : [facility], [place]., [address] Blood 10/13/2021 2:13 PM CDT 10/14/2021 1:11 PM CDT Kate Carrasco MD LAB BLOOD ORDERABLES Final Re sult Performing Organization Address City/[facility] Co de Phone Number HUSAMKATHRYN [address] [facility] [place] [address] * Allergen Tilden red (tree) IgE (10/13/2021 2:13 PM CDT) Tilden IgE <0.10 0.00 - 0.34 kUnits/L [facility] Comment:Testing performed by : [facility], [place]., [address] Blood 10/13/2021 2:13 PM CDT 10/14/2021 1:11 PM CDT Kate Carrasco MD LAB BLOOD ORDERABLES Final Re sult FRED [address] [facility] [place] [address] * Allergen Arlington ugandan (tree) IgE (10/13/2021 2:13 PM CDT) [place] IgE 0.12 0.00 - 0.34 kUnits/L [facility] Comment:Testing performed by : [facility], [place]., [address] Blood 10/13/2021 2:13 PM CDT 10/14/2021 1:11 PM CDT Kate Carrasco MD LAB BLOOD ORDERABLES Final Re sult Performing Organization Address [facility] Co de Phone Number FRED [phone] [facility] [place] [address] * (ABNORMAL) Allergen Magee (tree) IgE (10/13/2021 2:13 PM CDT) Magee (tree) IgE 0.75(H) 0.00 - 0.34 kUnits/L [facility] Comment:Testing performed by : [facility], [place]., [address] Blood 10/13/2021 2:13 PM CDT 10/14/2021 1:11 PM CDT Kate Carrasco MD LAB BLOOD ORDERABLES Final Re sult FRED [address] [facility] [place] [address] * Allergen Bermuda grass (grass) IgE (10/13/2021 2:13 PM CDT) Bermuda grass IgE <0.10 0.00 - 0.34 kUnits/L [facility] Comment:Testing performed by : [facility], [place]., [address] Blood 10/13/2021 2:13 PM CDT 10/14/2021 1:11 PM CDT Kate Carrasco MD LAB BLOOD ORDERABLES Final Re sult Performing Organization Address City/[facility]/ZIP Co de Phone Number FRED [address] [address] [place] [address] * Allergen Augustin grass (grass) IgE (10/13/2021 2:13 PM CDT) Augustin grass IgE <0.10 0.00 - 0.34 kUnits/L [facility] Comment:Testing performed by : [facility], [place]., [address] Blood 10/13/2021 2:13 PM CDT 10/14/2021 1:11 PM CDT Kate Carrasco MD LAB BLOOD ORDERABLES Final Re sult Performing Organization Address City/[facility] Co de Phone Number [facility] [address] [address] [place] [address] * Allergen Suhail grass (grass) IgE (10/13/2021 2:13 PM CDT) Suhail grass IgE <0.10 0.00 - 0.34 kUnits/L [facility] Comment:Testing performed by : [facility], [place]., [address] Blood 10/13/2021 2:13 PM CDT 10/14/2021 1:11 PM CDT Kate Carrasco MD LAB BLOOD ORDERABLES Final Re sult HUSAMKATHRYN [address] [facility] [place] [address] * Allergen Plantain malagasy (weed) IgE (10/13/2021 2:13 PM CDT) Pathologist [facility] Plantain malagasy IgE <0.10 0.00 - 0.34 kUnits/L [facility] Comment:Testing performed by : [facility], [place]., [address] Blood 10/13/2021 2:13 PM CDT 10/14/2021 1:11 PM CDT Kate Carrasco MD LAB BLOOD ORDERABLES Final Re sult Performing Organization Address [facility] Co de Phone Number HUSAMKATHRYN [address] [facility] [place] [address] * Allergen Rico's quarter (weed) IgE (10/13/2021 2:13 PM CDT) Pathologist [facility] Rico's quarters IgE <0.10 0.00 - 0.34 kUnits/L [facility] Comment:Testing performed by : [facility], [place]., [address] Blood 10/13/2021 2:13 PM CDT 10/14/2021 1:11 PM CDT Kate Carrasco MD LAB BLOOD ORDERABLES Final Re sult HUSAMKATHRYN [address] [facility] [place] [address] * Allergen Pigweed, rough (weed) IgE (10/13/2021 2:13 PM CDT) Pathologist [facility] Pigweed rough IgE <0.10 0.00 - 0.34 kUnits/L [facility] Comment:Testing performed by : [facility], [place]., [address] Blood 10/13/2021 2:13 PM CDT 10/14/2021 1:11 PM CDT Kate Carrasco MD LAB BLOOD ORDERABLES Final Re sult Performing Organization Address [facility] Co de Phone Number FRED [phone] [facility] [place] [address] * (ABNORMAL) Allergen Ragweed short/common (weed) IgE (10/13/2021 2:13 PM CDT) Ragweed common IgE 0.42(H) 0.00 - 0.34 kUnits/L [facility] Comment:Testing performed by : [facility], [place]., [address] Blood 10/13/2021 2:13 PM CDT 10/14/2021 1:11 PM CDT Result [facility] Kate Carrasco MD LAB BLOOD ORDERABLES Final Re sult Performing Organization Address [facility] Co de Phone Number FRED [phone] [facility] [place] [address] * (ABNORMAL) Allergen Alternaria tenuis (mold) IgE (10/13/2021 2:13 PM CDT) Alternaria tenius IgE 2.64(H) 0.00 - 0.34 kUnits/L [facility] Comment:Testing performed by : [facility], [place]., [address] Blood 10/13/2021 2:13 PM CDT 10/14/2021 1:11 PM CDT Kate Carrasco MD LAB BLOOD ORDERABLES Final Re sult Performing Organization Address [facility] Co de Phone Number FRED [address] [facility] [place] [address] * (ABNORMAL) Allergen Aspergillus fumigatus (mold) IgE (10/13/2021 2:13 PM CDT) Aspergillus fumigatus IgE 0.48(H) 0.00 - 0.34 kUnits/L [facility] Comment:Testing performed by : [facility], [place]., [address] Blood 10/13/2021 2:13 PM CDT 10/14/2021 1:11 PM CDT Kate Carrasco MD LAB BLOOD ORDERABLES Final Re sult Performing Organization Address City/[facility]/ZIP Co de Phone Number [facility] [address] [facility] [place] [address] * (ABNORMAL) Allergen Cladosporium herbarum (mold) IgE (10/13/2021 2:13 PM CDT) Cladosporium herbarum IgE 0.38(H) 0.00 - 0.34 kUnits/L [facility] Comment:Testing performed by : [facility], [place]., [address] Blood 10/13/2021 2:13 PM CDT 10/14/2021 1:11 PM CDT Kate Carrasco MD LAB BLOOD ORDERABLES Final Re sult [facility] [address] [facility] [place] [address] * (ABNORMAL) Allergen Penicillium chrysogenum (mold) IgE (10/13/2021 2:13 PM CDT) Penicillium chrysogenum IgE 0.40(H) 0.00 - 0.34 kUnits/L [facility] Comment:Testing performed by : [facility], [place]., [address] Blood 10/13/2021 2:13 PM CDT 10/14/2021 1:11 PM CDT Kate Carrasco MD LAB BLOOD ORDERABLES Final Re sult Performing Organization Address [facility] [place] [address] [facility] [place] [address] * (ABNORMAL) Allergen Cat dander standard (animal) IgE (10/13/2021 2:13 PM CDT) Cat dander IgE >100.00(H) 0.00 - 0.34 kUnits/L [facility] Comment:Testing performed by : [place]., [address] Blood 10/13/2021 2:13 PM CDT 10/14/2021 1:11 PM CDT Kate Carrasco MD LAB BLOOD ORDERABLES Final Re sult Performing Organization Address [facility] Co de Phone Number HUSAMKATHRYN [address] [address] [place] [address] * Allergen Cockroach ugandan (insect) IgE (10/13/2021 2:13 PM CDT) Cockroach IgE <0.10 0.00 - 0.34 kUnits/L [facility] Comment:Testing performed by : [place]., [address] Blood 10/13/2021 2:13 PM CDT 10/14/2021 1:11 PM CDT Kate Carrsaco MD LAB BLOOD ORDERABLES Final Re sult Performing Organization Address [facility] Co de Phone Number FRED [address] [address] [place] [address] * Allergen Dermatophagoides farniae (insect) IgE (10/13/2021 2:13 PM CDT) Dermatophyton farinae IgE 0.11 0.00 - 0.34 kUnits/L [facility] Comment:Testing performed by : [place]., [address] Blood 10/13/2021 2:13 PM CDT 10/14/2021 1:11 PM CDT Kate Carrasco MD LAB BLOOD ORDERABLES Final Re sult Performing Organization Address [facility] Co de Phone Number [facility] [address] [address] [place] [address] * Allergen Dermatophagoides pteronyssinus (insect) IgE (10/13/2021 2:13 PM CDT) Dermatophyton pteronyssinus IgE 0.12 0.00 - 0.34 kUnits/L [facility] Comment:Testing performed by : [facility], [place]., [address] Blood 10/13/2021 2:13 PM CDT 10/14/2021 1:11 PM CDT Result [facility] Kate Carrasco MD LAB BLOOD ORDERABLES Final Re sult Performing Organization Address [facility] Co de Phone Number [facility] [address] [address] [place] [address] * (ABNORMAL) Allergen Dog dander (animal) IgE (10/13/2021 2:13 PM CDT) Dog dander IgE 7.20(H) 0.00 - 0.34 kUnits/L [facility] Comment:Testing performed by : [place]., [address] Blood 10/13/2021 2:13 PM CDT 10/14/2021 1:11 PM CDT Kate Carrasco MD LAB BLOOD ORDERABLES Final Re sult Performing Organization Address [facility] Co de Phone Number FRED [address] [facility] [place] [address] * (ABNORMAL) Allergen Mouse urine proteins (animal) IgE (10/13/2021 2:13 PM CDT) Mouse urine proteins IgE 1.22(H) 0.00 - 0.34 kUnits/L [facility] Comment:Testing performed by : [facility], [place]., [address] Blood 10/13/2021 2:13 PM CDT 10/14/2021 1:11 PM CDT Kate Carrasco MD LAB BLOOD ORDERABLES Final Re sult Performing Organization Address [facility] Co de Phone Number FRED [address] [address] [place] [address] * (ABNORMAL) Alleren Rat urine proteins (animal) IgE (10/13/2021 2:13 PM CDT) Rat urine proteins IgE 1.79(H) 0.00 - 0.34 kUnits/L [facility] Comment:Testing performed by : [facility], [place]., [address] Blood 10/13/2021 2:13 PM CDT 10/14/2021 1:11 PM CDT Kate Carrasco MD LAB BLOOD ORDERABLES Final Re sult Performing Organization Address City/[facility]/ZIP Co de Phone Number FRED [address] [facility] [place] [address] * (ABNORMAL) IgE (10/13/2021 2:13 PM CDT) IgE 387.0(H) 1.0 - 100.0 IUnits/mL [facility] Comment:Testing performed by : [facility] [place]., [address] Blood 10/13/2021 2:13 PM CDT 10/14/2021 1:01 PM CDT Kate Carrasco MD LAB BLOOD [place] [address] [place] [address] * (ABNORMAL) CBC with auto differential (10/13/2021 [...] BLOOD [place] [address] [place] [address] documented in this encounter Visit Diagnoses Diagnosis [...] DAY added in this encounter Care Teams Search Analyst Relationship Specialty Start Date End Date Tristin Ghotra MD [address] [place] [id number] PCP - General 12/07/18 documented as of this encounter
--- OUTSIDE RECORDS SUMMARY | 2024-02-18 04:27 | XMS_ITS | Encounter Summary ---
Author Organization [facility] Facility Care Team Providers Care Pst Specialist Name Role Phone Unavailable Primary Care Provider Unavailabl e Encounter Details Date Type Department Care Team (Late st Contact Info) Description 01/18/2012 - 02/20/2012 11:59 PM STAFF WRITER Hospital Encounter [facility] Kendra Petty MD [address] [place] [address] Social History Tobacco Use Types Packs/Day Years Used Date Smoking Tobacco: Never Assessed Comments Unknown Sex and Gender Information Value Date Recorded Sex Assigned at Not on file Legal Sex Female 3:22 AM STAFF WRITER Gender Identity Female 06/27/2022 9:35 PM CDT Sexual Orientation Not on file documented as of this encounter Plan of Treatment Not on file documented as of this encounter Visit Diagnoses Not on filedocumented in this encounter
--- OUTSIDE RECORDS SUMMARY | 2024-02-18 04:27 | XMS_ITS | Encounter Summary ---
Author Organization [facility] Facility Care Team Providers Care Firebreak Cutter Name Role Phone Unavailable Primary Care Provider Unavailabl e Encounter Details Date Type Department Care Team (Late st Contact Info) Description 04/25/2009 - 04/25/2009 11:59 PM POOL TECHNICIAN Hospital Encounter [facility] Jorge Crowe MD [address] [place] [address] Follow-up examination, following other surgery; Abnormal levels of other serum enzymes Social History Tobacco Use Types Packs/Day Years Used Date Smoking Tobacco: Never Assessed Comments Unknown Sex and Gender Information Value Date Recorded Sex Assigned at Not on file Legal Sex Female 3:22 AM POOL TECHNICIAN Gender Identity Female 06/27/2022 9:35 PM CDT Sexual Orientation Not on file documented as of this encounter Plan of Treatment Not on file documented as of this encounter Visit Diagnoses Diagnosis Follow-up examination, following other surgery Abnormal levels of other serum enzymes documented in this encounter
--- OUTSIDE RECORDS SUMMARY | 2024-02-18 04:27 | XMS_ITS | Encounter Summary ---
Author Organization [facility] Healthcare Address [address] [place] [address] Care Team Providers Care Wet Room Worker Name Role Phone Tristin Ghotra MD Primary Care Provider [phone] Encounter Details Date Type Department Care Team (Late st Contact Info) Description 10/13/2021 5:30 PM CDT Lab [address] [address] Chronic rhinitis Social History Tobacco Use Types Packs/Day Years Used Date Smoking Tobacco: Never Alcohol Use Standard Drinks/Week Comments Yes 0 (1 standard drink = 0.6 oz pur e alcohol) Comments Unknown Sex and Gender Information Value Date Recorded Sex Assigned at Not on file 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 Testing performed by: [facility], [facility], [place]., [address] Blood 10/13/2021 2:13 PM CDT 10/14/2021 1:10 PM CDT us Kate Carrasco MD LAB [place]LOOD [place] [id number] [address] [place] [address] * Allergen evaluation (10/13/2021 2:13 PM CDT) RAST, allergen name See Interpretive data. FRED LO Comment: Interpretive data Rast Class ?Result range (KUnits/L) ?1+ ?0.35 ?- ?? 0.69 ?2+ ?0.70 ?- ?? 3.49 ?3+ ?3.50 ?- ??17.49 ?4+ ? 17.50 ?- ??49.99 ?5+ ? 50.00 ?- 100.00 ?6+ ? >100.00 Current interpretive data was last revised on 09. Testing performed by: [facility], [facility], [place]., [address] Blood 10/13/2021 2:13 PM CDT 10/14/2021 1:10 PM CDT us Kate Carrasco MD LAB BLOOD ORDERABLES Final Re sult [facility] [address] [address] [place] [address] * Differential, auto (10/13/2021 2:13 PM CDT) Neutrophil abs 3.6 1.7 - 6.5 K/cumm CERN[facility] Imm gran abs 0.0 0.0 - 0.1 K/cumm [facility] Lymphocyte abs 1.6 0.8 - 3.3 K/cumm C[facility] Monocyte abs 0.4 0.2 - 0.8 K/cumm [facility] Eosinophil abs 0.1 0.0 - 0.5 K/cumm [facility] Basophil abs 0.0 0.0 - 0.1 K/cumm [facility] Neutrophil pct 63.0 % [facility] Comment: Interpretive Data Percent cell count reference ranges are not reported, since discordance with absolute values may lead to misinterpretation of CBC data. Current Interpretive Data was last revised on 2017. Imm gran pct 0.3 % [facility] Comment: Interpretive Data Percent cell count reference ranges are not reported, since discordance with absolute values may lead to misinterpretation of CBC data. Current Interpretive Data was last revised on 2017. Lymphocyte pct 27.6 % [facility] Comment: Interpretive Data Percent cell count reference ranges are not reported, since discordance with absolute values may lead to misinterpretation of CBC data. Current Interpretive Data was last revised on 2017. Monocyte pct 7.5 % [facility] Comment: Interpretive Data Percent cell count [...] MD LAB BLOOD ORDERABLES Final Re sult [facility] [address] [address] [place] [address] * (ABNORMAL) CBC with auto differential (10/13/2021 2:13 PM CDT) WBC 5.7 3.8 - 9.9 K/cumm [facility] Hgb 14.0 11.9 - 15.5 g/dL [facility] Hct 41.7 35.6 - 45.5 % [facility] Plt 260 150 - 400 K/cumm [facility] MPV 11.2 9.1 - 12.3 fL [facility] RBC 4.30 3.90 - 5.20 M/cumm [facility] MCV 97.0(H) 81.3 - 96.4 fL [facility] MCH 32.6 27.1 - 33.3 pg [facility] MCHC 33.6 32.3 - 35.7 g/dL [facility] RDW CV 12.9 11.1 - 14.9 % [facility] RDW SD 46.1 35.7 - 48.1 fL [facility] NRBC abs 0.00 0.00 - 0.01 K/cumm [facility] Blood 10/13/2021 2:13 PM CDT 10/13/2021 5:33 PM CDT Kate Carrasco MD LAB BLOOD ORDERABLES Final Re sult Performing Organization Address [facility]/[place] [phone] [address] Department [place] [address] * (ABNORMAL) IgE (10/13/2021 2:13 PM CDT) IgE 387.0(H) 1.0 - 100.0 IUnits/mL [facility] Comment:Testing performed by : [facility], [address] [place] [address]., [id number] Blood 10/13/2021 2:13 PM CDT 10/14/2021 1:01 PM CDT Kate Carrasco MD LAB BLOOD ORDERABLES Final Re sult Performing Organization Address [facility] [place] [phone] [address] Department [place] [address] * (ABNORMAL) Alleren Rat urine proteins (animal) IgE (10/13/2021 2:13 PM CDT) Pathologist [facility] Rat urine proteins IgE 1.79(H) 0.00 - 0.34 kUnits/L [facility] Comment:Testing performed by : [facility], [facility], [place]., [address] Blood 10/13/2021 2:13 PM CDT 10/14/2021 1:11 PM CDT Kate Carrasco MD LAB BLOOD ORDERABLES Final Re sult Performing Organization Address City/[facility] [place] [address] [address] [facility] [place] [address] * (ABNORMAL) Allergen Mouse urine proteins (animal) IgE (10/13/2021 2:13 PM CDT) Mouse urine proteins IgE 1.22(H) 0.00 - 0.34 kUnits/L [facility] Comment:Testing performed by : [facility], [place]., [address] Blood 10/13/2021 2:13 PM CDT 10/14/2021 1:11 PM CDT Kate Carrasco MD LAB BLOOD ORDERABLES Final Re sult Performing Organization Address [facility] Co de Phone Number [facility] [address] [address] Department [place] [address] * (ABNORMAL) Allergen Dog dander (animal) IgE (10/13/2021 2:13 PM CDT) Dog dander IgE 7.20(H) 0.00 - 0.34 kUnits/L [facility] Comment:Testing performed by : [facility], [place]., [address] Blood 10/13/2021 2:13 PM CDT 10/14/2021 1:11 PM CDT Kate Carrasco MD LAB BLOOD ORDERABLES Final Re sult Performing Organization Address [facility] de Phone Number [facility] [address] [address] [facility] [place] [address] * Allergen Dermatophagoides pteronyssinus (insect) IgE (10/13/2021 2:13 PM CDT) Dermatophyton pteronyssinus IgE 0.12 0.00 - 0.34 kUnits/L [facility] Comment:Testing performed by : [facility], [place]., [address] Blood 10/13/2021 2:13 PM CDT 10/14/2021 1:11 PM CDT Kate Carrasco MD LAB BLOOD ORDERABLES Final Re sult Performing Organization Address [facility]/State/[facility] Co de Phone Number [facility] [address] [address] [facility] [place] [address] * Allergen Dermatophagoides farniae (insect) IgE (10/13/2021 2:13 PM CDT) Dermatophyton farinae IgE 0.11 0.00 - 0.34 kUnits/L [facility] Comment:Testing performed by : [facility], [place]., [address] Blood 10/13/2021 2:13 PM CDT 10/14/2021 1:11 PM CDT Kate Carrasco MD LAB BLOOD ORDERABLES Final Re sult Performing Organization Address [facility] Co de Phone Number [facility] [address] [address] [facility] [place] [address] * Allergen Cockroach thai (insect) IgE (10/13/2021 2:13 PM CDT) Cockroach IgE <0.10 0.00 - 0.34 kUnits/L [facility] Comment:Testing performed by : [facility], [place]., [address] Blood 10/13/2021 2:13 PM CDT 10/14/2021 1:11 PM CDT Kate Carrasco MD LAB BLOOD ORDERABLES Final Re sult Performing Organization Address City/[facility] Co de Phone Number [facility] [address] [address] Department [place] [address] * (ABNORMAL) Allergen Cat dander standard (animal) IgE (10/13/2021 2:13 PM CDT) Cat dander IgE >100.00(H) 0.00 - 0.34 kUnits/L FRED Comment:Testing performed by : [facility], [place]., [address] Blood 10/13/2021 2:13 PM CDT 10/14/2021 1:11 PM CDT Kate Carrasco MD LAB BLOOD ORDERABLES Final Re sult Performing Organization Address [facility] Co de Phone Number [facility] [address] [address] [facility] [place] [address] * (ABNORMAL) Allergen Penicillium chrysogenum (mold) IgE (10/13/2021 2:13 PM CDT) Penicillium chrysogenum IgE 0.40(H) 0.00 - 0.34 kUnits/L FRED Comment:Testing performed by : [employer] [address] Blood 10/13/2021 2:13 PM CDT 10/14/2021 1:11 PM CDT Kate Carrasco MD LAB BLOOD ORDERABLES Final Re sult Performing Organization Address [facility] Co de Phone Number [facility] [address] [address] [facility] [place] [address] * (ABNORMAL) Allergen Cladosporium herbarum (mold) IgE (10/13/2021 2:13 PM CDT) Cladosporium herbarum IgE 0.38(H) 0.00 - 0.34 kUnits/L FRED Comment:Testing performed by : [employer] [address] Blood 10/13/2021 2:13 PM CDT 10/14/2021 1:11 PM CDT Kate Carrasco MD LAB BLOOD ORDERABLES Final Re sult Performing Organization Address City/[facility] Co de Phone Number [facility] [address] [address] [facility] [place] [address] * (ABNORMAL) Allergen Aspergillus fumigatus (mold) IgE (10/13/2021 2:13 PM CDT) Aspergillus fumigatus IgE 0.48(H) 0.00 - 0.34 kUnits/L FRED Comment:Testing performed by : [facility], [place]., [address] Blood 10/13/2021 2:13 PM CDT 10/14/2021 1:11 PM CDT Kate Carrasco MD LAB BLOOD ORDERABLES Final Re sult Performing Organization Address [facility] Co de Phone Number [facility] [address] [address] [facility] [place] [address] * (ABNORMAL) Allergen Alternaria tenuis (mold) IgE (10/13/2021 2:13 PM CDT) Alternaria tenius IgE 2.64(H) 0.00 - 0.34 kUnits/L FRED Comment:Testing performed by : [facility], [place]., [address] Blood 10/13/2021 2:13 PM CDT 10/14/2021 1:11 PM CDT Kate Carrasco MD LAB BLOOD ORDERABLES Final Re sult Performing Organization Address City/[facility] Co de Phone Number [facility] [address] [address] [facility] [place] [address] * (ABNORMAL) Allergen Ragweed short/common (weed) IgE (10/13/2021 2:13 PM CDT) Ragweed common IgE 0.42(H) 0.00 - 0.34 kUnits/L FRED Comment:Testing performed by : [facility], [place]., [address] Blood 10/13/2021 2:13 PM CDT 10/14/2021 1:11 PM CDT Kate Carrasco MD LAB BLOOD ORDERABLES Final Re sult Performing Organization Address City/[facility] Co de Phone Number [facility] [address] [address] [facility] [place] [address] * Allergen Pigweed, rough (weed) IgE (10/13/2021 2:13 PM CDT) Pigweed rough IgE <0.10 0.00 - 0.34 kUnits/L [facility] Comment:Testing performed by : [facility], [place]., [address] Blood 10/13/2021 2:13 PM CDT 10/14/2021 1:11 PM CDT Kate Carrasco MD LAB BLOOD ORDERABLES Final Re sult Performing Organization Address [facility] Co de Phone Number [facility] [address] [address] [facility] [place] [address] * Allergen Rico's quarter (weed) IgE (10/13/2021 2:13 PM CDT) Pathologist [facility] Rico's quarters IgE <0.10 0.00 - 0.34 kUnits/L [facility] Comment:Testing performed by : [facility], [place]., [address] Blood 10/13/2021 2:13 PM CDT 10/14/2021 1:11 PM CDT Kate Carrasco MD LAB BLOOD ORDERABLES Final Re sult Performing Organization Address City/[facility]/ZIP Co de Phone Number [facility] [address] [address] [facility] [place] [address] * Allergen Plantain cape verdean (weed) IgE (10/13/2021 2:13 PM CDT) Pathologist [facility] Plantain cape verdean IgE <0.10 0.00 - 0.34 kUnits/L [facility] Comment:Testing performed by : [facility], [place]., [address] Blood 10/13/2021 2:13 PM CDT 10/14/2021 1:11 PM CDT Kate Carrasco MD LAB BLOOD ORDERABLES Final Re sult Performing Organization Address [facility] Co de Phone Number FRED [address] [address] Department [place] [address] * Allergen Suhail grass (grass) IgE (10/13/2021 2:13 PM CDT) Suhail grass IgE <0.10 0.00 - 0.34 kUnits/L FRED Comment:Testing performed by : [facility], [place]., [address] Blood 10/13/2021 2:13 PM CDT 10/14/2021 1:11 PM CDT Result [facility] Ktae Carrasco MD LAB BLOOD ORDERABLES Final Re sult Performing Organization Address [facility] de Phone Number FRED [address] [address] [facility] [place] [address] * Allergen Hunter grass (grass) IgE (10/13/2021 2:13 PM CDT) Hunter grass IgE <0.10 0.00 - 0.34 kUnits/L FRED Comment:Testing performed by : [facility], [place]., [address] Blood 10/13/2021 2:13 PM CDT 10/14/2021 1:11 PM CDT Result [facility] Kate Carrasco MD LAB BLOOD ORDERABLES Final Re sult Performing Organization Address [facility] Co de Phone Number FRED [address] [address] Department [place] [address] * Allergen Bermuda grass (grass) IgE (10/13/2021 2:13 PM CDT) Bermuda grass IgE <0.10 0.00 - 0.34 kUnits/L [facility] Comment:Testing performed by : [facility], [place]., [address] Blood 10/13/2021 2:13 PM CDT 10/14/2021 1:11 PM CDT Kate Carrasco MD LAB BLOOD ORDERABLES Final Re sult Performing Organization Address City/[facility] Co de Phone Number [facility] [address] [address] Department [place] [address] * (ABNORMAL) Allergen Hammond (tree) IgE (10/13/2021 2:13 PM CDT) Hammond (tree) IgE 0.75(H) 0.00 - 0.34 kUnits/L FRED Comment:Testing performed by : [facility], [place]., [address] Blood 10/13/2021 2:13 PM CDT 10/14/2021 1:11 PM CDT Kate Carrasco MD LAB BLOOD ORDERABLES Final Re sult Performing Organization Address City/[facility] Co de Phone Number [facility] [address] [address] Department [place] [address] * Allergen [place] thai (tree) IgE (10/13/2021 2:13 PM CDT) [place] IgE 0.12 0.00 - 0.34 kUnits/L [facility] Comment:Testing performed by : [facility], [place]., [address] Blood 10/13/2021 2:13 PM CDT 10/14/2021 1:11 PM CDT Kate Carrasco MD LAB BLOOD ORDERABLES Final Re sult Performing Organization Address City/[facility] [place] [address] [address] Department [place] [address] * Allergen Richardson red (tree) IgE (10/13/2021 2:13 PM CDT) Richardson IgE <0.10 0.00 - 0.34 kUnits/L FRED Comment:Testing performed by : [facility], [place]., [address] Blood 10/13/2021 2:13 PM CDT 10/14/2021 1:11 PM CDT Kate Carrasco MD LAB BLOOD ORDERABLES Final Re sult Performing Organization Address [facility] Co de Phone Number H[facility]AMK[facility]HR[facility] [address] [address] Department [place] [address] * Allergen Hemet (tree) IgE (10/13/2021 2:13 PM CDT) Hemet IgE <0.10 0.00 - 0.34 kUnits/L FRED Comment:Testing performed by : [facility], [place]., [address] Blood 10/13/2021 2:13 PM CDT 10/14/2021 1:11 PM CDT Kate Carrasco MD LAB BLOOD ORDERABLES Final Re sult H[facility]AMKATHR[facility] [address] [address] Department [place] [address] * Allergen Mountain juniper (tree) IgE (10/13/2021 2:13 PM CDT) Mountain juniper IgE 0.15 0.00 - 0.34 kUnits/L FRED Comment:Testing performed by : [place]., [address] Blood 10/13/2021 2:13 PM CDT 10/14/2021 1:11 PM CDT Kate Carrasco MD LAB BLOOD ORDERABLES Final Re sult Performing Organization Address [facility]/[place] [address] [address] [facility] [place] [address] * Allergen Maple/Box elder (tree) IgE (10/13/2021 2:13 PM CDT) Maple/box elder IgE <0.10 0.00 - 0.34 kUnits/L FRED Comment:Testing performed by : [facility], [place]., [address] Blood 10/13/2021 2:13 PM CDT 10/14/2021 1:11 PM CDT Result [facility] Kate Carrasco MD LAB BLOOD ORDERABLES Final Re sult Performing Organization Address [facility] Co de Phone Number FRED [address] [place] [address] * Allergen Elm (tree) IgE (10/13/2021 2:13 PM CDT) Elm IgE 0.10 0.00 - 0.34 kUnits/L FRED Comment:Testing performed by : [facility], [place]., [address] Blood 10/13/2021 2:13 PM CDT 10/14/2021 1:11 PM CDT Result [facility] Kate Carrasco MD LAB BLOOD ORDERABLES Final Re sult FRED [address] [address] [facility] [place] [address] * Allergen Birch common silver (tree) IgE (10/13/2021 2:13 PM CDT) Birch common silver IgE <0.10 0.00 - 0.34 kUnits/L FRED LO Comment:Testing performed by : [facility], [facility], [place]., [address] Blood 10/13/2021 2:13 PM CDT 10/14/2021 1:11 PM CDT us Kate Carrasco MD LAB BLOOD [place]AB[place] [phone] [address] [place] [address] documented in this encounter Visit Diagnoses Diagnosis Chronic rhinitis documented in this encounter Care Teams Wet Room Worker Relationship Specialty Start Date End Date Tristin Ghotra MD [address] [facility] [address] [place] [address] PCP - General 12/07/18 documented as of this encounter
--- OUTSIDE RECORDS SUMMARY | 2024-02-18 04:27 | XMS_ITS | Encounter Summary ---
Author Organization [facility] Healthcare Address [address] [place] [address] Care Team Providers Care Fleet Driver Name Role Phone Tristin Ghotra MD Primary Care Provider [phone] Encounter Details Date Type Department Care Team (Latest Contact Info) Description 10/09/2013 12:37 PM CDT Hospital Encounter [facility] Edgar Hager MD [address] [place] [address] Obstruction of bile duct Social History Tobacco Use Types Packs/Day Years Used Date Smoking Tobacco: Never Alcohol Use Standard Drinks/Week Comments Yes 0 (1 standard drink = 0.6 oz pur e alcohol) Comments Unknown Sex and Gender Information Value Date Recorded Sex Assigned at Not on file 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2 pg 10/09/2013 1:28 PM CDT [facility] [employer] HISTORICAL RESULTS MCHC 34.4 31.8 - 35.4 g/dl 10/09/2013 1:28 PM CDT [facility] [employer] HISTORICAL RESULTS RDW 11.8 11.6 - 14.8 % 10/09/2013 1:[address] [facility] HISTORICAL RESULTS Plt Count 212 124 - 400 x10 3/ul 10/09/2013 1:[address] [facility] HISTORICAL RESULTS MPV 11.5(H) 7.4 - 10.4 fl 10/09/2013 1:[address] [facility] HISTORICAL RESULTS 10/09/2013 1:09 PM CDT 10/09/2013 1:23 PM CDT us Edgar Hager MD LAB BLOOD ORDERABLES Final Resu lt Performing Organization Address [facility] Co de Phone Number [facility] HISTORICAL RESULTS * Lipase (10/09/2013 1:09 PM CDT) Pathologist [facility] Lipase 27 13 - 60 U/L 10/09/2013 1:[address] [facility] HISTORICAL RESULTS 10/09/2013 1:09 PM CDT 10/09/2013 1:23 PM CDT us Edgar Hager MD LAB BLOOD ORDERABLES Final Resu lt Performing Organization Address [facility] Co de Phone Number [facility] HISTORICAL RESULTS * Amylase (10/09/2013 1:09 PM CDT) Pathologist [facility] Amylase 74 28 - 100 U/L 10/09/2013 1:[address] [facility] HISTORICAL RESULTS 10/09/2013 1:09 PM CDT 10/09/2013 1:23 PM CDT Edgar Hager MD LAB BLOOD ORDERABLES Final Resu lt Performing Organization Address City/[facility] Co de Phone Number [facility] HISTORICAL RESULTS * (ABNORMAL) Alkaline phosphatase (10/09/2013 1:09 PM CDT) Pathologist [facility] Alkaline Phosphatase 277(H) 35 - 104 U/L 10/09/2013 1:[address] [facility] HISTORICAL RESULTS 10/09/2013 1:09 PM CDT 10/09/2013 1:23 PM CDT Result [facility] us Edgar Hager MD LAB BLOOD ORDERABLES Final Resu lt Performing Organization Address [facility] Phone Number [facility] HISTORICAL RESULTS * (ABNORMAL) ALT (10/09/2013 1:09 PM CDT) ALT 183(H) 0 - 33 U/L 10/09/2013 1:[address] [facility] HISTORICAL RESULTS 10/09/2013 1:09 PM CDT 10/09/2013 1:23 PM CDT Edgar Hager MD LAB BLOOD ORDERABLES Final Resu lt Performing Organization Address [facility] Phone Number [facility] HISTORICAL RESULTS * (ABNORMAL) AST (10/09/2013 1:09 PM CDT) AST 65(H) 0 - 32 U/L 10/09/2013 1:[address] [facility] HISTORICAL RESULTS 10/09/2013 1:09 PM CDT 10/09/2013 1:23 PM CDT Result [facility] Edgar Hager MD LAB BLOOD ORDERABLES Final Resu lt Performing Organization Address [facility] Phone Number [facility] HISTORICAL RESULTS * Bilirubin, total and direct (10/09/2013 1:09 PM CDT) Total Bilirubin 0.6 0.0 - 1.2 mg/dL 10/09/2013 1:[address] [facility] HISTORICAL RESULTS Direct Bilirubin < 0.20 0.00 - 0.25 mg/dL 10/09/2013 1:[address] [facility] HISTORICAL RESULTS 10/09/2013 1:09 PM CDT 10/09/2013 1:23 PM CDT Result [facility] us Edgar Hager MD LAB BLOOD ORDERABLES Final Resu lt Performing Organization Address [facility]/ZIP Co de Phone Number [facility] HISTORICAL RESULTS * Albumin (10/09/2013 1:09 PM CDT) Albumin 4.4 3.5 - 5.2 g/dL 10/09/2013 1:[address] [facility] HISTORICAL RESULTS 10/09/2013 1:09 PM CDT 10/09/2013 1:23 PM CDT us Edgar Hager MD LAB BLOOD ORDERABLES Final Resu lt Performing Organization Address [facility] Co de Phone Number [facility] HISTORICAL RESULTS documented in this encounter Visit Diagnoses Diagnosis Obstruction of bile duct documented in this encounter Care Teams Fleet Driver Relationship Specialty Start Date End Date Tristin Ghotra MD [address] [place] [address] PCP - General 09/27/13 10/10/13 documented as of this encounter
--- OUTSIDE RECORDS SUMMARY | 2024-02-18 04:27 | XMS_ITS | Encounter Summary ---
Author Organization [facility] Healthcare Address [address] [place] [address] Care Team Providers Care Income Tax Administrator Name Role Phone Unavailable Primary Care Provider Unavailabl e Encounter Details Date Type Department Care Team (Latest Contact Info) Description 03/27/2012 7:56 AM LEGAL WORD PROCESSOR Hospital Encounter [facility] Edgar Hager MD [address] [place] [address] Abdominal pain; Other specified abnormal findings of blood chemistry; Nausea without vomiting; Pruritic disorder; Celiac artery compression syndrome (CMS/HCC) (HCC); Other acquired absence of organ Social History Tobacco Use Types Packs/Day Years Used Date Smoking Tobacco: Never Assessed Comments Unknown Sex and Gender Information Value Date Recorded Sex Assigned at Not on file Legal Sex Female 3:22 AM LEGAL WORD PROCESSOR Gender Identity Female 06/27/2022 9:35 PM CDT [...] ABDOMEN LIMITED Routine 03/27/2012 8: 26 AM LEGAL WORD PROCESSOR US AORTA IVC Routine 03/27/2012 7:59 AM LEGAL WORD PROCESSOR documented in this encounter Results * US Abdomen Limited (03/27/2012 8:26 AM LEGAL WORD PROCESSOR) Anatomical Region Laterality Modality Abdomen N/A Ultrasound 03/27/2012 8:26 AM LEGAL WORD PROCESSOR Impressions 03/27/2012 10:19 AM LEGAL WORD PROCESSOR ?? Status post cholecystectomy. Right upper quadrant ultrasound is within normal limits THIS IS AN ELECTRONICALLY VERIFIED REPORT 03/27/2012 10:15 AM: ??Cecilio Lizarraga M.D. Cecilio Lizarraga M.D. NC:nc 10:15 AM 10:15 AM [EOD] Narrative 03/27/2012 10:19 AM LEGAL WORD PROCESSOR EXAMINATION: ??Right upper quadrant ultrasound HISTORY: ??Nausea, [...] 10:15 AM [EOD] us Edgar Hager MD [facility] US PROCEDURES Final Result * US Aorta IVC (03/27/2012 7:59 AM LEGAL WORD PROCESSOR) Anatomical Region Laterality Modality Abdomen N/A Ultrasound 03/27/2012 7:59 AM LEGAL WORD PROCESSOR Narrative 03/28/2012 1:43 PM LEGAL WORD PROCESSOR DATE: ??03/27/2012 TAPE NUMBER: REASON FOR EXAM: [...] VESSELS. RC/LC TD: ??03/28/2012 08:25:06 Job #: ??[id number] Pedro Richards MD [EOD] Procedure Note Provider, [...] IN BOTH VESSELS. 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
== END 2024-02-11 05:06 | disposition home or self-care (01) ==
PROVIDERS: Emergency Provider Emergency Medicine; PCP Internal Medicine
DX: L30.9 Dermatitis, unspecified (principal)
CPT/HCPCS: 99283

== ENCOUNTER 2024-03-02 20:24 | Inpatient (IN) | payer OTHER, SELFPAY ==
--- NOTE | ~2024-03-02 | XR_ITS ---
XR chest 2V Ordering provider: Mario Ruiz MD History: 49 years Female with . CP ANTERIORLY THAT RADIATES TO B/L ARMS . Comparison: December 04, 2018 FINDINGS: MEDIASTINUM: The cardiac silhouette is not enlarged. LUNGS: No infiltrates, effusions or pneumothorax. OTHER: No free air under the diaphragm. IMPRESSION: No acute cardiopulmonary pathology. Reviewed, dictated and finalized at location A. RITY SERVICES SPECIALIST
--- NOTE | ~2024-03-02 | CT_ITS ---
EXAMINATION: CTA chest PE protocol DATE: 03/06/2024 10:28 INDICATION: Pain TECHNIQUE: Computed tomography (CT) pulmonary angiogram of the chest was performed with 100 mL Omnipa que-350 intravenous contrast. Additional 3D reconstructions utilizing coronal maximum intensity proje ction (MIP) were performed. Automated exposure control and iterative reconstruction technique were em ployed. The dose-length product was 168.28 mGy-cm. COMPARISON: None FINDINGS: No pulmonary embolism. Mild discoid atelectasis at the bilateral basilar dependent lower lobes. No pn eumonia, pulmonary edema or pleural effusion. Mild cardiomegaly. There is pectus excavatum which exer ts mild mass effect upon the anterior wall of the right ventricle. No pericardial effusion. Atheroscl erotic coronary artery calcific lesion. Thoracic aorta is normal in caliber with no dissection. No pa thologically enlarged thoracic lymphadenopathy. There is some scattered pneumobilia which may be rela catherine to prior cholecystectomy in centrally with surgical clips the gallbladder fossa. Mild thoracic sp ondylosis. IMPRESSION: 1. No pulmonary embolism or other acute cardiopulmonary disease. Reviewed, dictated and finalized at location B. TRY TRIMMER
--- NOTE | 2024-03-02 20:25 | ECG_ITS ---
Test Date: 2024-03-02 20:35:48 Measurements Intervals [place] Rate: 71 P: 75 SC: 202 QRS: -12 QRSD: 89 T: 58 QT: 389 QTc: 424 Interpretive Statements SINUS RHYTHM WITH SINUS ARRHYTHMIA POSSIBLE LEFT ATRIAL ENLARGEMENT [-0.1mV P WAVE IN V1/V2] POSSIBLE LEFT VENTRICULAR HYPERTROPHY [VOLTAGE CRITERIA PLUS LAE OR QRS WIDENING] POSSIBLE ANTERIOR MYOCARDIAL INFARCTION , OF INDETERMINATE AGE [30 ms Q WAVE IN V3/V4, OR R < 0.2 mV IN V4] ABNORMAL ECG Electronically Signed On 03-03-2024 08:27:11 MANAGER ASSURANCE by Cristopher Lipscomb M.D.
[2024-03-02 20:42] VITALS: BP 148/85; PULSE 79; RESP 20; TEMP 36.9; O2SAT 100
[2024-03-02 20:56] LABS: Basophils Percent Auto 0.8 % (0.2-1.2); Eosinophils Absolute Auto 0.1 K/mm3 (0-0.3); Eosinophils Percent Auto 2.2 % (0-4.4); Hematocrit 39.2 % (37.0-47.0); Immature Granulocyte Absolute 0.01 K/mm3 (0.00-0.031); Immature Granulocyte Percent A 0.2 % (0-0.5); Lymphocytes Absolute Auto 1.51 K/mm3 (0.9-3.2); Lymphocytes Percent Auto 29.5 % (18.3-44.2); Mean Corpuscular HGB Conc 33.2 g/dl (32-36); Mean Corpuscular Hemoglobin 32.4 pg (26-34); Mean Corpuscular Volume 97.8 fl (80-100); Mean Platelet Volume 10.5 fl (7.4-10.4); Monocytes Absolute Auto 0.4 K/mm3 (0.1-0.6); Monocytes Percent Auto 8.4 % (2.6-8.5); Neutrophils Percent Auto 58.9 % (45.5-73.1); Platelet Count Result 206 k/mm3 (150-375); Red Blood Count 4.01 M/mm3 (4.2-5.4); Red Cell Distribution Width 12.5 % (11.5-14.5); White Blood Count 5.1 K/mm3 (4.5-10.0)
[2024-03-02 21:04] LABS: Alanine Aminotransferase 54 U/L (6-35); Albumin Level 4.4 g/dL (3.5-5.1); Alkaline Phosphatase 98 U/L (38-126); Anion Gap 7 mmol/L (4-12); Aspartate Amino Transferase 53 U/L (14-36); Blood Urea Nitrogen 20 mg/dL (7-17); Calcium 9.5 mg/dL (8.4-10.2); Carbon Dioxide 30 mmol/L (22-30); Chloride 101 mmol/L (98-107); Estimated CRCL calculation 68 ml/min; Estimated Glomerular Filt Rate > 60; Glucose 98 mg/dL (65-110); Lipase 79 U/L (23-300); Potassium 4.2 mmol/L (3.4-5.0); Sodium 138 mmol/L (137-145)
[2024-03-02 21:12] LABS: Prothrombin Time 13.7 Seconds (11.1-14.7)
[2024-03-02 21:13] LABS: Partial Thromboplastin Time 28.9 Seconds (22.3-36.8)
[2024-03-02 21:16] LABS: Troponin I < 0.012 ng/mL (0.000-0.034)
--- NOTE | 2024-03-02 23:31 | ECG_ITS ---
Test Date: 2024-03-02 23:48:09 Measurements Intervals [place] Rate: 66 P: 71 WI: 213 QRS: -11 QRSD: 79 T: 52 QT: 395 QTc: 414 Interpretive Statements SINUS RHYTHM WITH SINUS ARRHYTHMIA WITH FIRST DEGREE AV BLOCK MODERATE VOLTAGE CRITERIA FOR LVH, CONSIDER NORMAL VARIANT [MEETS CRITERIA IN ONE OF: R(aVL), S(V1), R(V5), R(V5/V6)+S(V1)] ABNORMAL ECG Electronically Signed On 03-03-2024 08:30:03 CORRESPONDENCE COORDINATOR by Cristopher Lipscomb M.D.
[2024-03-03] VITALS (19 sets, daily range): BP systolic 114–150; BP diastolic 57–84; PULSE 42–78; RESP 16–18; TEMP 36.7–36.9; O2SAT 96–100; BMI 19.6
[2024-03-03 00:18] LABS: Troponin I 0.434 ng/mL (0.000-0.034)
--- NOTE | 2024-03-03 01:08 | ED_ITS ---
HPI - General Adult General Chief complaint: Chest Pain Stated complaint: Chest pain, BUE pain Time Seen by Provider: 03/03/24 00:38 History of Present Illness HPI narrative: 49-year-old female presenting to the emergency department for evaluation for substernal chest pain that started at approximately 8:00 p.m. and lasted until 11:00 p.m.. Patient states the pain at 8:00 p.m. was close to 9/10. Patient states that the pain is very similar to her prior episode of coronary artery dissection approximately 13 years ago. Patient was evaluated at [facility] received 2 stents at that time. Patient does follow-up with Dr. Patti GOMEZ with the [facility]. At time of arrival patient reports that her pain is significantly improved and only has a mild aching pressure at this time. Related Data Home Medications ?Medication ?Instructions ?Recorded ?Confirmed ?Last Taken ?Type albuterol 90 mcg-budesonide 80 2 inh inhalation QID PRN shortness 03/03/24 03/03/24 02/28/24 20:00 History mcg/actuation HFA aerosol inhaler of breath or wheezing (Airsupra) albuterol sulfate 90 mcg/actuation 2 puff inhalation QID PRN 03/03/24 03/03/24 03/02/24 20:00 History aerosol inhaler shortness of breath or wheezing amlodipine 5 mg tablet 5 mg PO DAILY 03/03/24 03/03/24 03/02/24 History dextroamphetamine-amphetamine 10 20 mg PO DAILY 03/03/24 03/03/24 03/02/24 History mg tablet losartan 25 mg tablet 25 mg PO DAILY 03/03/24 03/03/24 03/02/24 History Allergies Allergy/AdvReac Type Severity Reaction Status Date / Time No Known Allergies Allergy Unknown Verified 03/02/24 20:46 Review of Systems 2 Review of Systems: All systems reviewed & are unremarkable except as noted in HPI and below PMFSH Family History Family History (Updated 03/03/24 @ 03:52 by Melisa Esquivel RN) Sibling Aneurysm cause of at age 57 Father Lung cancer Mother Skin cancer Social History Social History Smoking status: Never smoker Alcohol intake: current Drinks per week: 2 Substance use: never Do You Feel Safe in your Home?: Yes Lack of Transportation: No Lack of Food: Never True Current Housing: I Have Housing Concerned About Future Housing: No Difficulty Paying Gas/Electric Bills: No Difficulty Paying for Meds: No Currently Unemployed: No Education: Decline to Answer Difficulty w/ Childcare or Family Care: No Spiritual care concerns: No Exam 2 Narrative: APPEARANCE: Well appearing, no pain, no distress, well-nourished. HEAD: normocephalic, atraumatic. EYES: PERRLA/EOMI, conjunctivae clear. NOSE: Normal no drainage EARS:TMS clear with good light reflex. THROAT: Pharynx clear, no exudate. NECK: Supple. No adenopathy, no masses. RESPIRATORY: Airway patent, respirations nonlabored. Clear to auscultation bilaterally, no rales, rhonchi, wheezing. CARDIOVASCULAR: Regular rate and rhythm without murmurs rubs or gallops. ABDOMINAL: Soft, nontender, nondistended, normal bowel sounds MUSCULOSKELETAL: Moves all extremities. Strength/ROM intact, No edema, No calf tenderness. NEURO: Alert. Cranial nerves II through XII intact. Good gait. Good coordination SKIN: Warm, dry. Normal Color Course Vital Signs Vital signs: Vital Signs Temperature 98.5 F 03/02/24 20:42 Pulse Rate 79 03/02/24 20:42 Respiratory Rate 20 03/02/24 20:42 Blood Pressure 148/85 H 03/02/24 20:42 Pulse Oximetry 100 03/02/24 20:42 Oxygen Delivery Room Air 03/02/24 20:42 Temperature 98.4 F 03/03/24 03:52 Pulse Rate 68 03/03/24 06:00 Respiratory Rate 18 03/03/24 03:52 Blood Pressure 150/84 H 03/03/24 03:52 Pulse Oximetry 100 03/03/24 03:52 Oxygen Delivery Room Air 03/03/24 03:15 Medical Decision Making [facility] Narrative Medical decision making narrative: 49-year-old female presents emergency department for evaluation for chest pain. Patient is afebrile with no leukocytosis and hemoglobin of 13. Patient's initial troponin was negative but patient's 3 hour did increase to 0.434. Case was discussed with Cardiology and they were comfortable with the patient the plan to keep the patient here and to start her heparin. Patient was updated the results of the workup and plan for admission. Patient was well-appearing and stable time of admission. Differential Diagnosis Differential Diagnosis: STEMI, non STEMI, coronary artery dissection Vital Signs Vital Signs: Vital Signs Temperature 98.5 F 03/02/24 20:42 Pulse Rate 79 03/02/24 20:42 Respiratory Rate 20 03/02/24 20:42 Blood Pressure 148/85 H 03/02/24 20:42 Pulse Oximetry 100 03/02/24 20:42 Oxygen Delivery Room Air 03/02/24 20:42 Temperature 98.4 F 03/03/24 03:52 Pulse Rate 68 03/03/24 06:00 Respiratory Rate 18 03/03/24 03:52 Blood Pressure 150/84 H 03/03/24 03:52 Pulse Oximetry 100 03/03/24 03:52 Oxygen Delivery Room Air 03/03/24 03:15 Lab Data Lab results reviewed: Yes I reviewed the patient's lab results. 03/02/24 20:50 03/02/24 20:50 Labs: Lab Results 03/02/24 03/02/24 Range/Units 20:50 23:43 WBC 5.1 (4.5-10.0) K/mm3 RBC 4.01 L (4.2-5.4) M/mm3 Hgb 13.0 (12.0-15.0) g/dL Hct 39.2 (37.0-47.0) % MCV 97.8 (80-100) fl MCH 32.4 (26-34) pg MCHC 33.2 (32-36) g/dl RDW 12.5 (11.5-14.5) % Plt Count 206 (150-375) k/mm3 MPV 10.5 H (7.4-10.4) fl Immature Gran % (Auto) 0.2 (0-0.5) % Neut % (Auto) 58.9 (45.5-73.1) % Lymph % (Auto) 29.5 (18.3-44.2) % [place] % (Auto) 8.4 (2.6-8.5) % Eos % (Auto) 2.2 (0-4.4) % Baso % (Auto) 0.8 (0.2-1.2) % Lymph # (Auto) 1.51 (0.9-3.2) K/mm3 [place] # (Auto) 0.4 (0.1-0.6) K/mm3 Eos # (Auto) 0.1 (0-0.3) K/mm3 Baso # (Auto) 0.0 (0.0-0.1) K/mm3 Abs Immat Gran (auto) 0.01 (0.00-0.031) K/mm3 Absolute Neuts (auto) 3.0 (1.3-6.7) K/mm3 Absolute Nucleated RBC 0.000 (0.0-0.012) K/mm3 Nucleated RBC % 0.0 (0.0-0.2) % PT 13.7 (11.1-14.7) Seconds INR 1.0 APTT 28.9 (22.3-36.8) Seconds Sodium 138 (137-145) mmol/L Potassium 4.2 (3.4-5.0) mmol/L Chloride 101 (98-107) mmol/L Carbon Dioxide 30 (22-30) mmol/L Anion Gap 7 (4-12) mmol/L BUN 20 H (7-17) mg/dL Creatinine 0.85 (0.7-1.0) mg/dL Estim Creat Clear Calc 68 ml/min Estimated GFR > 60 (59 - ) Glucose 98 (65-110) mg/dL Calcium 9.5 (8.4-10.2) mg/dL Total Bilirubin 1.0 (0.2-1.3) mg/dL AST 53 H (14-36) U/L ALT 54 H (6-35) U/L Alkaline Phosphatase 98 (38-126) U/L Troponin I < 0.012 0.434 H* D (0.000-0.034) ng/mL Total Protein 7.0 (6.3-8.2) g/dL Albumin 4.4 (3.5-5.1) g/dL Lipase 79 (23-300) U/L Critical Care Time Critical Care Time Critical Care Time: Yes Total Critical Care Time: 35 Discharge Plan Discharge Clinical Impression: Chest pain, Non-ST elevation RI (NSTEMI) Patient Disposition: Still a Patient Condition: Serious
[2024-03-03] MEDS: HEPARIN SOD/D5W 100 UNITS/ML 25,000 UNITS/250 ML BAG 7 UNITS IV CONT (02:12)
[2024-03-03] MEDS: HEPARIN SODIUM 5,000 UNITS/ML VIAL 3500 UNITS IV PUSH (02:12)
--- NOTE | 2024-03-03 02:22 | ECG_ITS ---
Test Date: 2024-03-03 02:44:19 Measurements Intervals [place] Rate: 68 P: 76 [place]: 211 QRS: -14 QRSD: 86 T: 52 QT: 406 QTc: 433 Interpretive Statements SINUS RHYTHM WITH FIRST DEGREE AV BLOCK POSSIBLE LEFT ATRIAL ENLARGEMENT [-0.1mV P-WAVE IN V1/V2] POSSIBLE LEFT VENTRICULAR HYPERTROPHY [VOLTAGE CRITERIA PLUS LAE OR QRS WIDENING] ABNORMAL ECG Compared to ECG 03/02/2024 23:48:09 Sinus arrhythmia no longer present Electronically Signed On 03-03-2024 08:32:22 TALENT ACQUISITION MANAGER by Cristopher Lipscomb M.D.
[2024-03-03] MEDS: ASPIRIN 81 MG CHEWABLE TABLET 324 MG PO (02:59)
--- NOTE | 2024-03-03 03:21 | PC.NURSE ---
This patient, Paola Mckeon, was admitted to IMU Room 210-03/03/24 at 0310. Patient/family oriented to hospital policies and general routines including ID bracelet, bed and alarms, visiting hours, pain management, procedures, bathroom and other care routines, personal items, smoking policy, room service/diet, and visiting hours. Information on how to activate the Rapid Response Team has been discussed. Patient/Family are encouraged to report perceived risks to care and to ask questions if they do not understand what they are told or what they should do.
[2024-03-03] MEDS: MORPHINE SULFATE (*CRX) 2 MG/ML INJ 1 MG IV PUSH (03:32)
[2024-03-03 08:41] LABS: Cholesterol 158 mg/dL (0-200); HDL Direct 86 mg/dL; Triglycerides 33 mg/dL (<150)
[2024-03-03 08:51] LABS: Partial Thromboplastin Time 90.4 Seconds (22.3-36.8)
[2024-03-03 08:52] LABS: LDL Cholesterol Direct 55 mg/dL
[2024-03-03] MEDS: ASPIRIN 81 MG CHEWABLE TABLET PO (09:29)
--- NOTE | 2024-03-03 11:25 | PM.CNCAR ---
Assessment and Plan Assessment and plan (1) Non-ST elevation [place] (NSTEMI): Code(s): I21.4 - Non-ST elevation (NSTEMI) myocardial infarction Status: Acute Assessment and Plan: Patient is presenting with a non ST elevation myocardial infarction. Chest pain is consistent with ACS. EKG does not show any changes that require emergent catheterization. She does have improvement of her symptoms but still has some residual discomfort. Will repeat a troponin until peak. 2D echocardiogram with Doppler be ordered and reviewed. Will continue heparin drip per protocol. Aspirin 81 mg p.o. daily. She has a history of significant liver dysfunction has chronically elevated LFT in the 500 range she states. Therefore will hold off on statin therapy. Will give metoprolol 25 mg p.o. b.i.d.. She has not been recently compliant with aspirin usage. She does have history of bare metal stent and there could be InStent restenosis causing her acute presentation. Obviously given her history of acute coronary dissection, then that is also of concern. Sublingual nitroglycerin 0.4 mg sublingual x1 now. Up titrate as need be and if she does have some improvement of her symptoms with nitroglycerin, will likely use a nitroglycerin patch. Will continue to work on improvement of her pain symptoms. Obviously if she has worsening symptoms or symptoms that do not significantly improve despite medical therapy, urgent coronary angiogram to be performed. Otherwise NPO after midnight for catheterization tomorrow. Also, patient should not have her Adderall restarted. I think given her history of coronary dissection and hypertension, utilizing a stimulant is not optimal. (2) Chest pain: Code(s): R07.9 - Chest pain, unspecified Status: Acute Assessment and Plan: As detailed above (3) Coronary artery dissection: Code(s): I25.42 - Coronary artery dissection Status: Acute Assessment and Plan: Previous history of 2 lad stents (bare metal) related to acute spontaneous coronary dissection in 2013 (4) Hypertension: Code(s): I10 - Essential (primary) hypertension Status: Acute Assessment and Plan: Above goal. Resume amlodipine. Adding metoprolol as above. Continue losartan 25 mg daily History of Present Illness History of Present Illness Consult date/time: 03/03/24 11:25 Requesting physician: Mario Ruiz MD Consult reason: Other (Non-STEMI) Reason For Visit: nstemi, cp Narrative: Reason for consultation: Non-STEMI Date of service 03/03/2024 Requesting provider: Dr. Ruiz History: Patient is a 49-year-old female who for history has a diagnosis of spontaneous coronary dissection. She did received 2 bare metal stents to the LAD. Original catheterization performed on September 19, [address] Woodard and she had a follow-up catheterization in September of 2013 which showed patent stents. At that time patient had spontaneous coronary dissection of the LAD and underwent 2 bare metal stents. She has been seen Dr. Armstrong at [facility] for the past several number of years. She had been doing fine up until last night when she had acute onset of burning in her chest. She took a Tums with no relief. The burning her chest was severe it was 9/10. Then radiated to the left arm and then to both arms. This is a similar presentation as to what she had in 2013. She has been started on heparin and given aspirin. Pain is better and is currently a 4/10. She has otherwise been doing okay and denies any recent chest pain with exertion, unusual shortness of breath. She does have asthma but no unusual shortness of breath, syncope, presyncope, paroxysmal nocturnal dyspnea, orthopnea, edema or palpitations. EKG showed no acute ST or T-wave abnormalities but troponins are elevated and up trending Review of Systems Review of Systems: All systems reviewed & are unremarkable except as noted in HPI and below Constitutional: Constitutional: Denies body ache(s) Eyes: Eyes: Denies blurry vision ENT: Reports Normal hearing present Cardiovascular: Cardiovascular: Reports chest pain Respiratory: Respiratory: Denies dyspnea on exertion Gastrointestinal: Gastrointestinal: Denies abdominal pain Genitourinary: Genitourinary: Denies hematuria Musculoskeletal: Musculoskeletal: Denies back pain Integumentary/Breasts: Skin/Breast: Denies skin pain Neurologic: Denies headache(s) Psychiatric: Psychiatric: Denies behavioral changes Endocrine: Endocrine: Denies excessive sweating Hematologic/Lymphatic: Hematologic/Lymphatic: Denies easy bleeding Allergic/Immunologic: Allergic/Immunologic: Denies lip swelling PMFSH Past Medical History Medical History (Updated 03/03/24 @ 11:39 by Cristopher Lipscomb MD) Hypertension Coronary artery dissection Family History Family History (Updated 03/03/24 @ 03:52 by Melisa Esquivel RN) Sibling Aneurysm cause of at age 57 Father Lung cancer Mother Skin cancer Social History Social History Smoking status: Never smoker Alcohol intake: current Drinks per week: 2 Substance use: never Do You Feel Safe in your Home?: Yes Lack of Transportation: No Lack of Food: Never True Current Housing: I Have Housing Concerned About Future Housing: No Difficulty Paying Gas/Electric Bills: No Difficulty Paying for Meds: No Currently Unemployed: No Education: Decline to Answer Difficulty w/ Childcare or Family Care: No Spiritual care concerns: No Meds Home Medications and Allergies Home Medications ?Medication ?Instructions ?Recorded ?Confirmed ?Type albuterol 90 mcg-budesonide 80 2 inh inhalation QID PRN shortness 03/03/24 03/03/24 History mcg/actuation HFA aerosol inhaler of breath or wheezing (Airsupra) albuterol sulfate 90 mcg/actuation 2 puff inhalation QID PRN 03/03/24 03/03/24 History aerosol inhaler shortness of breath or wheezing amlodipine 5 mg tablet 5 mg PO DAILY 03/03/24 03/03/24 History dextroamphetamine-amphetamine 10 20 mg PO DAILY 03/03/24 03/03/24 History mg tablet losartan 25 mg tablet 25 mg PO DAILY 03/03/24 03/03/24 History Allergies Allergy/AdvReac Type Severity Reaction Status Date / Time No Known Allergies Allergy Unknown Verified 03/03/24 08:27 Vital Signs Vital Signs - 24 hr 03/02/24 20:42 03/03/24 02:23 03/03/24 03:14 Temperature 36.9 C Pulse Rate 79 78 Respiratory Rate 20 Blood Pressure 148/85 H Pulse Oximetry 100 100 Oxygen Delivery Room Air Room Air 03/03/24 03:15 03/03/24 03:52 03/03/24 04:00 Temperature 36.9 C Pulse Rate 67 67 64 Respiratory Rate 18 18 Blood Pressure 150/84 H Pulse Oximetry 100 100 Oxygen Delivery Room Air 03/03/24 06:00 03/03/24 08:00 03/03/24 08:00 Temperature Pulse Rate 68 54 L Respiratory Rate Blood Pressure Pulse Oximetry Oxygen Delivery Room Air 03/03/24 08:10 03/03/24 10:00 Temperature 36.8 C Pulse Rate 57 L 64 Respiratory Rate 16 Blood Pressure 131/67 Pulse Oximetry 99 Oxygen Delivery Exam Narrative: Alert oriented appears stated age Const: General: comfortable and no acute distress HENMT: Ears: TM's normal bilaterally Face/Nose/Sinus: Normal nares present Eyes: General: appearance normal, both eyes and all related structures Sclera: sclerae normal Neck: Neck: supple and no JVD Chest: Other: No reproducible chest wall pain to palpation Resp: Effort & Inspection: normal respiratory effort Auscultation: clear to auscultation bilaterally Cardio: Rate: regular rate Rhythm: regular rhythm Heart sounds: no murmurs GI: Inspection: non-distended GI Palp: Yes Soft to palpation Auscultation: normal bowel sounds Skin: General skin exam: normal color Neuro: Speech: normal speech Extrem: General: normal to inspection Psych: Mental Status: mental status grossly normal Affect: normal affect Results Labs and Meds 03/02/24 20:50 03/02/24 20:50 Lab results: Cardiac Enzymes 03/02/24 03/02/24 03/03/24 Range/Units 20:50 23:43 02:20 AST 53 H (14-36) U/L Troponin I < 0.012 0.434 H* D 0.590 H* D (0.000-0.034) ng/mL Coagulation 03/02/24 03/03/24 Range/Units 20:50 08:08 PT 13.7 (11.1-14.7) Seconds APTT 28.9 90.4 H (22.3-36.8) Seconds Lipids 03/03/24 Range/Units 08:08 Triglycerides 33 (<150) mg/dL Cholesterol 158 (0-200) mg/dL CBC 03/02/24 Range/Units 20:50 WBC 5.1 (4.5-10.0) K/mm3 RBC 4.01 L (4.2-5.4) M/mm3 Hgb 13.0 (12.0-15.0) g/dL Hct 39.2 (37.0-47.0) % Plt Count 206 (150-375) k/mm3 Lymph # (Auto) 1.51 (0.9-3.2) K/mm3 [place] # (Auto) 0.4 (0.1-0.6) K/mm3 Eos # (Auto) 0.1 (0-0.3) K/mm3 Baso # (Auto) 0.0 (0.0-0.1) K/mm3 Comprehensive Metabolic Panel 03/02/24 Range/Units 20:50 Sodium 138 (137-145) mmol/L Potassium 4.2 (3.4-5.0) mmol/L Chloride 101 (98-107) mmol/L Carbon Dioxide 30 (22-30) mmol/L BUN 20 H (7-17) mg/dL Creatinine 0.85 (0.7-1.0) mg/dL Glucose 98 (65-110) mg/dL Calcium 9.5 (8.4-10.2) mg/dL AST 53 H (14-36) U/L ALT 54 H (6-35) U/L Alkaline Phosphatase 98 (38-126) U/L Total Protein 7.0 (6.3-8.2) g/dL Albumin 4.4 (3.5-5.1) g/dL Intake and Output 03/02/24 03/03/24 03/03/24 23:59 07:59 15:59 Intake Total 6.8 47.8 Balance 6.8 47.8 Intake: IV 6.8 47.8 Heparin Sod/D5w 100 Units/ml 25 6.8 47.8 ,000 units In 250 ml @ 700 UNITS/HR 7 mls/hr IV CONT .Q24H [facility] Rx#:[id number] Oral 0 Other: # Unmeasured Voids 1 Patient Weight 03/03/24 23:59 Weight 60.4 kg EKG is a personally reviewed and independently interpreted showing normal sinus rhythm and no acute ST or T-wave abnormalities.
[2024-03-03] MEDS: METOPROLOL TARTRATE 25 MG TABLET PO ×2 (11:54→21:14)
[2024-03-03] MEDS: NITROGLYCERIN SL 0.4 MG TABLET SUBLINGUAL ×3 (11:55→12:03)
[2024-03-03 12:14] LABS: Troponin I 0.119 ng/mL (0.000-0.034)
[2024-03-03] MEDS: ACETAMINOPHEN 325 MG TABLET 650 MG PO ×3 (13:15→21:15)
[2024-03-03 15:09] LABS: Partial Thromboplastin Time 67.9 Seconds (22.3-36.8)
[2024-03-03] MEDS: HEPARIN SODIUM 5,000 UNITS/ML VIAL 2500 UNITS IV PUSH (15:18)
--- NOTE | 2024-03-03 16:17 | P.HP_ITS ---
H&P: HPI History of Present Illness Date/Time: 03/03/24 16:17 Chief Complaint: Chest pain Narrative: 49-year-old female past medical history of hypertension, history of coronary artery dissection who presented via account of chest pain. Patient reported she was in her usual state of health 11 point SP left long history having a burning chest pain about 9/10 in intensity quickly radiating to the left and right arms. Denies any cold sweats, noted mild shortness of breath but denies any vomiting no nausea no lightheadedness no loss of consciousness no abdominal pain or diarrhea dysuria no focal symptoms. Stated he was similar to symptoms she had when she was diagnosed of a coronary artery dissection which prompted her to present to the ER for further evaluation and care. ER notable for temperature 98.5?, heart rate 79, respiratory 20, saturation 100% on room air, blood pressure 148/85. Labs notable troponin 0.434, repeat was 0.5. LDL is 55. Patient was started on heparin drip and Cardiology consult consulted prior to admission. Review of Systems Review of Systems: All other systems reviewed and negative except as noted in the HPI above. [facility] Past Medical History Medical History (Updated 03/03/24 @ 11:39 by Cristopher Lipscomb MD) Hypertension Coronary artery dissection Family History Family History (Updated 03/03/24 @ 03:52 by Melisa Esquivel RN) Sibling Aneurysm cause of at age 57 Father Lung cancer Mother Skin cancer Social History Social History Smoking status: Never smoker Alcohol intake: current Drinks per week: 2 Substance use: never Do You Feel Safe in your Home?: Yes Lack of Transportation: No Lack of Food: Never True Current Housing: I Have Housing Concerned About Future Housing: No Difficulty Paying Gas/Electric Bills: No Difficulty Paying for Meds: No Currently Unemployed: No Education: Decline to Answer Difficulty w/ Childcare or Family Care: No Spiritual care concerns: No Meds Home Medications and Allergies Home Medications ?Medication ?Instructions ?Recorded ?Confirmed ?Type albuterol 90 mcg-budesonide 80 2 inh inhalation QID PRN shortness 03/03/24 03/03/24 History mcg/actuation HFA aerosol inhaler of breath or wheezing (Airsupra) albuterol sulfate 90 mcg/actuation 2 puff inhalation QID PRN 03/03/24 03/03/24 History aerosol inhaler shortness of breath or wheezing amlodipine 5 mg tablet 5 mg PO DAILY 03/03/24 03/03/24 History dextroamphetamine-amphetamine 10 20 mg PO DAILY 03/03/24 03/03/24 History mg tablet losartan 25 mg tablet 25 mg PO DAILY 03/03/24 03/03/24 History Allergies Allergy/AdvReac Type Severity Reaction Status Date / Time No Known Allergies Allergy Unknown Verified 03/03/24 08:27 Vital Signs Vital Signs - 24 hr 03/02/24 20:42 03/03/24 02:23 03/03/24 03:14 Temperature 98.5 F Pulse Rate 79 78 Respiratory Rate 20 Blood Pressure 148/85 H Pulse Oximetry 100 100 Oxygen Delivery Room Air Room Air 03/03/24 03:15 03/03/24 03:52 03/03/24 04:00 Temperature 98.4 F Pulse Rate 67 67 64 Respiratory Rate 18 18 Blood Pressure 150/84 H Pulse Oximetry 100 100 Oxygen Delivery Room Air 03/03/24 06:00 03/03/24 08:00 03/03/24 08:00 Temperature Pulse Rate 68 54 L Respiratory Rate Blood Pressure Pulse Oximetry Oxygen Delivery Room Air 03/03/24 08:10 03/03/24 10:00 03/03/24 11:54 Temperature 98.3 F Pulse Rate 57 L 64 58 L Respiratory Rate 16 Blood Pressure 131/67 Pulse Oximetry 99 Oxygen Delivery 03/03/24 12:00 03/03/24 12:00 03/03/24 12:23 Temperature 98.1 F Pulse Rate 64 54 L Respiratory Rate 18 Blood Pressure 138/57 L Pulse Oximetry 96 Oxygen Delivery Room Air 03/03/24 14:00 Temperature Pulse Rate 61 Respiratory Rate Blood Pressure Pulse Oximetry Oxygen Delivery Exam Narrative: General: alert and comfortable Eyes: EOMI, PERRLA ENNT External ears normal, Neck is supple, no masses, Respiratory systems: Clear to auscultation Cardiovascular S1, S2, normal rhythm, no murmur, rub, or gallop; no thrill or palpable murmurs on palpation. Gastrointestinal: soft, non-tender, and non-distended abdomen with no masses; BS present Skin: no rash, lesions, ulcerations, subcutaneous nodules or induration Musculoskeletal: no abnormality and no tenderness, normal ROM Neurologic: Alert and oriented x3, non focal Mental Status Exam: normal affect H&P: Results Labs Labs: Short CBC 03/02/24 Range/Units 20:50 WBC 5.1 (4.5-10.0) K/mm3 Hgb 13.0 (12.0-15.0) g/dL Hct 39.2 (37.0-47.0) % Plt Count 206 (150-375) k/mm3 BMP 03/02/24 20:50 Sodium 138 Potassium 4.2 Chloride 101 Carbon Dioxide 30 BUN 20 H Creatinine 0.85 Glucose 98 Calcium 9.5 Cardiac Enzymes 03/02/24 03/02/24 03/03/24 Range/Units 20:50 23:43 02:20 Troponin I < 0.012 0.434 H* D 0.590 H* D (0.000-0.034) ng/mL 03/03/24 Range/Units 11:42 Troponin I 0.119 H* (0.000-0.034) ng/mL Liver Function 03/02/24 Range/Units 20:50 Total Bilirubin 1.0 (0.2-1.3) mg/dL AST 53 H (14-36) U/L ALT 54 H (6-35) U/L Alkaline Phosphatase 98 (38-126) U/L Albumin 4.4 (3.5-5.1) g/dL Assessment and Plan Assessment and plan (1) Non-ST elevation [place] (NSTEMI): Code(s): I21.4 - Non-ST elevation (NSTEMI) myocardial infarction Status: Acute (2) Hypertension: Code(s): I10 - Essential (primary) hypertension Status: Acute (3) Coronary artery dissection: Code(s): I25.42 - Coronary artery dissection Status: Acute Plan NSTEMI Patient presented with chest pain Troponin elevated Chest x-ray unremarkable EKG no acute changes. LDL is 55 A1c pending, echo pending. Continue aspirin Lipitor metoprolol heparin infusion Cardiology consulted. Hypertension Address home medications with clinical course. History of coronary artery dissection Dense normal care DVT prophylaxis patient is on heparin infusion Full code Surrogate decision [facility] Advance Care Plan I have confirmed that the patient's Advanced Care Plan is present, code status is documented, or surrogate decision maker is listed in patient medical record.: Yes Medication Reconciliation I have utilized all available resources to obtain, update and review the patients current medications (includes all prescriptions, OTC, herbals, cannabis, and nutritional supplements).: Yes
[2024-03-03] MEDS: NITROGLYCERIN OINTMENT 1 INCH DOSE 0.5 INCH TRANSDERM ×2 (18:24→23:47)
[2024-03-03] MEDS: ATORVASTATIN 40 MG TABLET PO (18:24)
[2024-03-03 21:36] LABS: Partial Thromboplastin Time 150.9 Seconds (22.3-36.8)
[2024-03-04] VITALS (34 sets, daily range): BP systolic 103–155; BP diastolic 38–84; PULSE 42–63; RESP 14–18; TEMP 36.6–37; O2SAT 95–100
--- NOTE | 2024-03-04 | ECHO_ITS ---
Patient Info Name: Paola Mckeon Age: 49 years : 1975 Gender: Female Ht: 69 in Wt: 133 lbs BSA: 1.71 m2 HR: 49 bpm BP: 126 / 58 mmHg Technical Quality: Fair Exam Date: 03/04/2024 11:09 AM Exam Location: Echo Lab Patient Status: Inpatient Admit Date: 03/03/2024 Staff Ordering Physician: Cristopher Lipscomb MD Production Line: Liban Cherry RDCS Attending Provider: Lisa Hoyos MD Referring Physician: Ruel JARQUIN; Exam Type: CA echo doppler color flow Study Info Indications - NON STEMI Complete two-dimensional, color flow and Doppler transthoracic echocardiogram is performed. Summary 1. Complete two-dimensional, color flow and Doppler transthoracic echocardiogram is performed. 2. Left ventricular systolic function is normal, estimated at 60-65%. 3. There is mildly increased left ventricular wall thickness. 4. The left ventricular diastolic function is normal. 5. There is trace mitral valve regurgitation. Left Ventricle Left ventricular chamber dimension is normal. Left ventricular systolic function is normal, estimated at 60-65%. There is mildly increased left ventricular wall thickness. Left ventricular septal wall motion is normal. The left ventricular diastolic function is normal. Right Ventricle Right ventricular chamber dimension is normal. Right ventricular systolic function is normal. Left Atria Left atrial chamber dimension is normal. Right Atria Right atrial chamber dimension is normal. Aortic Valve The aortic valve is trileaflet. There is no aortic valve sclerosis. There is no aortic valve stenosis. There is no aortic valve regurgitation. Pulmonic Valve The pulmonic valve is normal. There is no pulmonic valve stenosis. There is no pulmonic regurgitation. Mitral Valve The mitral valve has normal leaflets. There is no mitral valve stenosis. There is trace mitral valve regurgitation. Tricuspid Valve The tricuspid valve leaflets are normal. There is no significant tricuspid valve stenosis. There is no tricuspid valve regurgitation. Pericardium/Pleural The pericardium appears normal. There is no pericardial effusion. Inferior Vena Cava Dilated inferior vena cava with >50% collapse upon inspiration consistent with elevated right atrial pressure, 10 mmHg. Aorta The aortic root size at the sinus of Valsalva is normal. The prox ascending aorta size is normal. Left Ventricular Outflow Tract Name Value Normal LVOT 2D LVOT Diameter 1.7 cm LVOT Doppler LVOT Peak Gradient 5 mmHg LVOT Mean Gradient 3 mmHg LVOT VTI 25 cm LVOT VTI/AV VTI Ratio 0.9 LVOT Stroke Volume 59 ml LVOT CO 10.1 l/min LVOT CI 5.9 l/min/m2 Pulmonic Valve Name Value Normal RVOT Doppler RVOT Peak Gradient 3 mmHg PV Doppler PV Peak Gradient 3 mmHg Mitral Valve Name Value Normal MV Doppler MV Peak Gradient 3 mmHg MV Mean Gradient 1 mmHg MV Decel Ross 234 cm/s2 MV PHT 74 ms MV Area (PHT) 3.0 cm2 4.0-5.0 MV Area (Cont Eq VTI) 1.8 cm2 MV Diastolic Function MV E Peak Velocity 60 cm/s MV A Peak Velocity 51 cm/s MV E/A 1.2 MV Decel Time 256 ms MV Annular TDI MV E/e' (Septal) 3.5 <=8.0 MV E/e' (Lateral) 3.5 <=8.0 MV E/e' (Average) 3.5 Tricuspid Valve Name Value Normal Estimated PAP/RSVP RA Pressure 10 mmHg <=5 Aorta Name Value Normal Ascending Aorta Ao Root Diameter (MM) 2.4 cm Ao Root Diam Index (MM) 1.4 cm/m2 Aortic Valve Name Value Normal AV Doppler AV Peak Velocity 126 cm/s AV Peak Gradient 6 mmHg AV Mean Gradient 3 mmHg AV VTI 29 cm AV Area (Cont Eq VTI) 2.0 cm2 >=3.0 AV Area (Cont Eq Joon) 2.0 cm2 AV Regurgitation 2D LVOT Area 2.3 cm2 Ventricles Name Value Normal LV Dimensions 2D/MM IVS Diastolic Thickness (2D) 1.2 cm 0.6-1.0 LVID Diastole (2D) 4.2 cm 3.8-5.2 LVIW Diastolic Thickness (2D) 1.3 cm 0.6-0.9 LVID Systole (2D) 2.7 cm 2.2-3.5 LVOT Diameter 1.7 cm LV Mass (2D Cubed) 181.31 g 67.00-162.00 LV Mass Index (2D Cubed) 106 g/m2 43-95 Relative Wall Thickness (2D) 0.60 LV Fractional Shortening/Ejection Fraction 2D/MM LV Fractional Shortening (2D) 35 % 27-45 LV EF (2D Teicholz) 64 % 54-74 LV Diastolic Volume (4C MOD) 88 ml LV EF (4C MOD) 54 % LV Diastolic Volume (2C MOD) 114 ml LV EF (2C MOD) 69 % LV Diastolic Volume (BP MOD) 100 ml 46-106 LV Diastolic Volume Index (BP MOD) 59 ml/m2 29-61 LV Systolic Volume (BP MOD) 39 ml 14-42 LV Systolic Volume Index (BP MOD) 23 ml/m2 8-24 LV EF (BP MOD) 61 % 54-74 LV Diastolic Length (4C) 8.6 cm LV Systolic Length (4C) 7.5 cm LV Stroke Volume (4C MOD) 47 ml Atria Name Value Normal LA Dimensions LA Dimension (MM) 2.4 cm 2.7-3.8 LA Volume (4C A-L) 35 ml LA Volume (BP A-L) 42 ml RA Dimensions RA Area (4C) 15.2 cm2 <=18.0 Report Signatures
[2024-03-04 02:30] LABS: Hemoglobin A1C 5.3 % (<5.7)
[2024-03-04] MEDS: NITROGLYCERIN OINTMENT 1 INCH DOSE 0.5 INCH TRANSDERM (05:11)
[2024-03-04 06:32] LABS: Basophils Percent Auto 1.1 % (0.2-1.2); Eosinophils Absolute Auto 0.1 K/mm3 (0-0.3); Eosinophils Percent Auto 3.4 % (0-4.4); Hemoglobin 12.7 g/dL (12.0-15.0); Immature Granulocyte Absolute 0.01 K/mm3 (0.00-0.031); Immature Granulocyte Percent A 0.3 % (0-0.5); Lymphocytes Absolute Auto 1.61 K/mm3 (0.9-3.2); Lymphocytes Percent Auto 45.1 % (18.3-44.2); Mean Corpuscular HGB Conc 33.4 g/dl (32-36); Mean Corpuscular Hemoglobin 32.6 pg (26-34); Mean Corpuscular Volume 97.7 fl (80-100); Mean Platelet Volume 10.9 fl (7.4-10.4); Monocytes Absolute Auto 0.3 K/mm3 (0.1-0.6); Monocytes Percent Auto 9.2 % (2.6-8.5); Neutrophils Absolute Auto 1.5 K/mm3 (1.3-6.7); Neutrophils Percent Auto 40.9 % (45.5-73.1); Platelet Count Result 193 k/mm3 (150-375); Red Blood Count 3.89 M/mm3 (4.2-5.4); Red Cell Distribution Width 12.1 % (11.5-14.5); White Blood Count 3.6 K/mm3 (4.5-10.0)
[2024-03-04 06:46] LABS: Partial Thromboplastin Time 63.3 Seconds (22.3-36.8)
[2024-03-04 06:47] LABS: Alanine Aminotransferase 55 U/L (6-35); Albumin Level 3.9 g/dL (3.5-5.1); Alkaline Phosphatase 94 U/L (38-126); Anion Gap 7 mmol/L (4-12); Aspartate Amino Transferase 48 U/L (14-36); Bilirubin,Total 1.4 mg/dL (0.2-1.3); Blood Urea Nitrogen 15 mg/dL (7-17); Carbon Dioxide 26 mmol/L (22-30); Chloride 103 mmol/L (98-107); Estimated CRCL calculation 88 ml/min; Estimated Glomerular Filt Rate > 60; Glucose 80 mg/dL (65-110); Potassium 4.7 mmol/L (3.4-5.0); Sodium 136 mmol/L (137-145)
[2024-03-04] MEDS: HEPARIN SODIUM 5,000 UNITS/ML VIAL 2500 UNITS IV PUSH (06:56)
--- NOTE | 2024-03-04 07:31 | P.PNIM_ITS ---
Progress Note: A&P Assessment and Plan (1) Non-ST elevation [place] (NSTEMI): Code(s): I21.4 - Non-ST elevation (NSTEMI) myocardial infarction Status: Acute (2) Hypertension: Code(s): I10 - Essential (primary) hypertension Status: Acute (3) Coronary artery dissection: Code(s): I25.42 - Coronary artery dissection Status: Acute Plan NSTEMI Patient presented with chest pain Troponin elevated Chest x-ray unremarkable EKG no acute changes. LDL is 55 A1c pending, echo pending. Continue aspirin Lipitor metoprolol heparin infusion Underwent cardiac catheterization no significant finding Ordered CTA to rule out PE Cardiology consulted. Hypertension Address home medications with clinical course. History of coronary artery dissection Dense normal care DVT prophylaxis patient is on heparin infusion Full code Surrogate decision maker is Isaac Mckeon Subjective Date/time seen: 03/04/24 07:31 Interval history: 49-year-old female past medical history of hypertension, history of coronary artery dissection who presented via account of chest pain. She does have history of bare metal stent and there could be InStent restenosis causing her acute presentation. During my evaluation patient denies any chest pain. Patient underwent cardiac catheterization today which shows patent stents in LAD and no significant CAD. Financial Services Rep recommended to rule out PE.Ordered CTA to r/o PE. Review of Systems Review of Systems: All other systems reviewed and negative except as noted in the HPI above. Exam Narrative: General: alert and comfortable Eyes: EOMI, PERRLA ENNT External ears normal, Neck is supple, no masses, Respiratory systems: Clear to auscultation Cardiovascular S1, S2, normal rhythm, no murmur, rub, or gallop; no thrill or palpable murmurs on palpation. Gastrointestinal: soft, non-tender, and non-distended abdomen with no masses; BS present Skin: no rash, lesions, ulcerations, subcutaneous nodules or induration Musculoskeletal: no abnormality and no tenderness, normal ROM Neurologic: Alert and oriented x3, non focal Mental Status Exam: normal affect Objective Data Vital Signs Vital Signs: Vital Signs - 24 hr 03/03/24 08:00 03/03/24 08:00 03/03/24 08:10 Temperature 98.3 F Pulse Rate 54 L 57 L Respiratory Rate 16 Blood Pressure 131/67 Pulse Oximetry 99 Oxygen Delivery Room Air 03/03/24 10:00 03/03/24 11:54 03/03/24 12:00 Temperature Pulse Rate 64 58 L 64 Respiratory Rate Blood Pressure Pulse Oximetry Oxygen Delivery 03/03/24 12:00 03/03/24 12:23 03/03/24 14:00 Temperature 98.1 F Pulse Rate 54 L 61 Respiratory Rate 18 Blood Pressure 138/57 L Pulse Oximetry 96 Oxygen Delivery Room Air 03/03/24 16:00 03/03/24 16:00 03/03/24 16:21 Temperature 98.1 F Pulse Rate 62 57 L Respiratory Rate 16 Blood Pressure 124/64 Pulse Oximetry 98 Oxygen Delivery Room Air 03/03/24 18:00 03/03/24 20:00 03/03/24 20:00 Temperature 98.3 F Pulse Rate 60 62 57 L Respiratory Rate 18 18 Blood Pressure 114/57 L Pulse Oximetry 98 98 Oxygen Delivery Room Air 03/03/24 20:00 03/03/24 21:14 03/03/24 23:00 Temperature Pulse Rate 66 66 42 L Respiratory Rate Blood Pressure Pulse Oximetry Oxygen Delivery 03/04/24 00:00 03/04/24 00:00 03/04/24 00:00 Temperature 98.5 F Pulse Rate 42 L 42 L 47 L Respiratory Rate 18 16 Blood Pressure 108/49 L Pulse Oximetry 98 98 Oxygen Delivery Room Air 03/04/24 02:00 03/04/24 04:00 03/04/24 04:00 Temperature Pulse Rate 48 L 42 L 42 L Respiratory Rate 16 Blood Pressure Pulse Oximetry 98 Oxygen Delivery Room Air 03/04/24 05:00 03/04/24 06:00 Temperature 97.8 F Pulse Rate 49 L 46 L Respiratory Rate 16 Blood Pressure 126/58 L Pulse Oximetry 100 Oxygen Delivery Intake/Output Intake/Output: Intake & Output 03/01/24 03/02/24 03/03/24 03/04/24 23:59 23:59 23:59 23:59 Intake Total 143.2 49.4 Output Total 600 200 Balance -456.8 -150.6 Meds/Results Medications: Active Medications Generic Name Dose Route Start Last Admin Trade Name Freq PRN Reason Stop Dose Admin Acetaminophen 650 mg 03/03/24 12:30 03/03/24 21:15 Acetaminophen 325 Mg Tablet PO 650 mg Q4H PRN Administration Headache Amlodipine Besylate 5 mg 03/04/24 09:00 Amlodipine Besylate 5 Mg Tablet PO DAILY [facility] Aspirin 81 mg 03/03/24 08:00 03/03/24 09:29 Aspirin 81 Mg Chewable Tablet PO 81 mg DAILY@0800 [facility] Administration Atorvastatin Calcium 40 mg 03/03/24 16:20 03/03/24 18:24 Atorvastatin 40 Mg Tablet PO 40 mg DAILY [facility] Administration Heparin Sodium (Porcine) 4,000 units 03/03/24 01:32 Heparin Sodium 5,000 Units/Ml Vial IV PUSH PRN PRN aPTT less than 55 seconds Heparin Sodium (Porcine) 2,500 units 03/03/24 01:32 03/04/24 06:56 Heparin Sodium 5,000 Units/Ml Vial IV PUSH 2,500 units PRN PRN Administration aPTT 55 - 70 seconds Heparin Sodium/Dextrose 25,000 units in 250 mls @ 7 mls/hr 03/03/24 01:35 03/04/24 06:55 Heparin Sodium/D5w 100 Units/Ml IV CONT 700 units/hr .Q24H [facility] 7 mls/hr Titration Protocol 700 UNITS/HR Losartan Potassium 25 mg 03/04/24 09:00 Losartan Potassium 25 Mg Tablet PO DAILY [facility] Metoprolol Tartrate 25 mg 03/03/24 11:50 03/03/24 21:14 Metoprolol Tartrate 25 Mg Tablet PO 25 mg Q12HR [facility] Administration Nitroglycerin 0.4 mg 03/03/24 11:47 03/03/24 12:03 Nitroglycerin Sl 0.4 Mg Tablet SUBLINGUAL 0.4 mg Q5MIN PRN Administration Chest Pain Nitroglycerin 0.5 inch 03/03/24 18:00 03/04/24 05:11 Nitroglycerin Ointment 1 Inch Dose TRANSDERM 0.5 inch Q6HR [facility] Administration Perflutren Lipid Microsphere 0 ml 03/03/24 11:46 Perflutren Lipid Microspheres 1.5 Ml Vial Diluted To 10 Ml Total Volume IV PUSH 03/06/24 11:47 ONCE PRN adequate visualization Protocol Radiology Results: ITS Impressions Chest X-Ray 03/02/24 21:33 IMPRESSION: No acute cardiopulmonary pathology. Labs Labs: Laboratory Results - last 24 hr 03/03/24 03/03/24 03/03/24 08:08 11:42 14:38 WBC RBC Hgb Hct MCV MCH MCHC RDW Plt Count MPV Immature Gran % (Auto) Neut % (Auto) Lymph % (Auto) [place] % (Auto) Eos % (Auto) Baso % (Auto) Lymph # (Auto) [place] # (Auto) Eos # (Auto) Baso # (Auto) Abs Immat Gran (auto) Absolute Neuts (auto) Absolute Nucleated RBC Nucleated RBC % APTT 90.4 H 67.9 H Sodium Potassium Chloride Carbon Dioxide Anion Gap BUN Creatinine Estim Creat Clear Calc Estimated GFR Glucose Hemoglobin A1c Calcium Magnesium Total Bilirubin AST ALT Alkaline Phosphatase Troponin I 0.119 H* Total Protein Albumin Triglycerides 33 Cholesterol 158 LDL Cholesterol Direct 55 HDL Direct 86 03/03/24 03/04/24 03/04/24 21:13 00:00 05:55 WBC 3.6 L RBC 3.89 L Hgb 12.7 Hct 38.0 MCV 97.7 MCH 32.6 MCHC 33.4 RDW 12.1 Plt Count 193 MPV 10.9 H Immature Gran % (Auto) 0.3 Neut % (Auto) 40.9 L Lymph % (Auto) 45.1 H [place] % (Auto) 9.2 H Eos % (Auto) 3.4 Baso % (Auto) 1.1 Lymph # (Auto) 1.61 [place] # (Auto) 0.3 Eos # (Auto) 0.1 Baso # (Auto) 0.0 Abs Immat Gran (auto) 0.01 Absolute Neuts (auto) 1.5 Absolute Nucleated RBC 0.000 Nucleated RBC % 0.0 APTT 150.9 H 63.3 H Sodium 136 L Potassium 4.7 Chloride 103 Carbon Dioxide 26 Anion Gap 7 BUN 15 D Creatinine 0.64 L Estim Creat Clear Calc 88 Estimated GFR > 60 Glucose 80 Hemoglobin A1c 5.3 Calcium 9.0 Magnesium 2.0 Total Bilirubin 1.4 H AST 48 H ALT 55 H Alkaline Phosphatase 94 Troponin I Total Protein 7.0 Albumin 3.9 Triglycerides Cholesterol LDL Cholesterol Direct HDL Direct Hospitalist MIPS Advance Care Plan I have confirmed that the patient's Advanced Care Plan is present, code status is documented, or surrogate decision maker is listed in patient medical record.: Yes Medication Reconciliation I have utilized all available resources to obtain, update and review the patients current medications (includes all prescriptions, OTC, herbals, cannabis, and nutritional supplements).: Yes
[2024-03-04] MEDS: METOPROLOL TARTRATE 25 MG TABLET PO ×2 (09:36→20:59)
[2024-03-04] MEDS: ATORVASTATIN 40 MG TABLET PO (09:37)
[2024-03-04] MEDS: LOSARTAN POTASSIUM 25 MG TABLET PO (09:37)
[2024-03-04] MEDS: ASPIRIN 81 MG CHEWABLE TABLET PO (09:37)
[2024-03-04] MEDS: amLODIPine BESYLATE 5 MG TABLET PO (09:37)
--- NOTE | 2024-03-04 12:44 | WPDMODSED ---
Moderate Sedation Note-Pt Data Patient Data Diagnosis: NSTEMI Present Complaint: chest pain Procedure to be performed/Plan: coronary angiogram with possible stenting Allergies Allergy/AdvReac Type Severity Reaction Status Date / Time No Known Allergies Allergy Unknown Verified 03/03/24 08:27 Home Medications ?Medication ?Instructions ?Recorded ?Confirmed ?Type albuterol 90 mcg-budesonide 80 2 inh inhalation QID PRN shortness 03/03/24 03/03/24 History mcg/actuation HFA aerosol inhaler of breath or wheezing (Airsupra) albuterol sulfate 90 mcg/actuation 2 puff inhalation QID PRN 03/03/24 03/03/24 History aerosol inhaler shortness of breath or wheezing amlodipine 5 mg tablet 5 mg PO DAILY 03/03/24 03/03/24 History dextroamphetamine-amphetamine 10 20 mg PO DAILY 03/03/24 03/03/24 History mg tablet losartan 25 mg tablet 25 mg PO DAILY 03/03/24 03/03/24 History Current Medications: Active Medications Acetaminophen (Acetaminophen 325 Mg Tablet) 650 mg PO Q4H PRN PRN Reason: Headache Last Admin: 03/03/24 21:15 Dose: 650 mg Amlodipine Besylate (Amlodipine Besylate 5 Mg Tablet) 5 mg PO DAILY [facility] Last Admin: 03/04/24 09:37 Dose: 5 mg Aspirin (Aspirin 81 Mg Chewable Tablet) 81 mg PO DAILY@0800 [facility] Last Admin: 03/04/24 09:37 Dose: 81 mg Atorvastatin Calcium (Atorvastatin 40 Mg Tablet) 40 mg PO DAILY [facility] Last Admin: 03/04/24 09:37 Dose: 40 mg Heparin Sodium (Porcine) (Heparin Sodium 5,000 Units/Ml Vial) 4,000 units IV PUSH PRN PRN PRN Reason: aPTT less than 55 seconds Heparin Sodium (Porcine) (Heparin Sodium 5,000 Units/Ml Vial) 2,500 units IV PUSH PRN PRN PRN Reason: aPTT 55 - 70 seconds Last Admin: 03/04/24 06:56 Dose: 2,500 units Heparin Sodium/Dextrose (Heparin Sodium/D5w 100 Units/Ml) 25,000 units in 250 mls @ 7 mls/hr IV CONT .Q24H [facility]; Protocol Last Titration: 03/04/24 06:55 Dose: 700 units/hr, 7 mls/hr Losartan Potassium (Losartan Potassium 25 Mg Tablet) 25 mg PO DAILY [facility] Last Admin: 03/04/24 09:37 Dose: 25 mg Metoprolol Tartrate (Metoprolol Tartrate 25 Mg Tablet) 25 mg PO Q12HR [facility] Last Admin: 03/04/24 09:36 Dose: 25 mg Nitroglycerin (Nitroglycerin Sl 0.4 Mg Tablet) 0.4 mg SUBLINGUAL Q5MIN PRN PRN Reason: Chest Pain Last Admin: 03/03/24 12:03 Dose: 0.4 mg Nitroglycerin (Nitroglycerin Ointment 1 Inch Dose) 0.5 inch TRANSDERM Q6HR [facility] Last Admin: 03/04/24 05:11 Dose: 0.5 inch Perflutren Lipid Microsphere (Perflutren Lipid Microspheres 1.5 Ml Vial Diluted To 10 Ml Total Volume) 0 ml IV PUSH ONCE PRN; Protocol PRN Reason: adequate visualization Stop: 03/06/24 11:47 Sedation/Anesthesia: No previous sedation/anesthesia problems (including family history). [facility] Past Medical History Medical History Hypertension Coronary artery dissection Family History Family History Sibling Aneurysm cause of at age 57 Father Lung cancer Mother Skin cancer Social History Social History Smoking status: Never smoker Alcohol intake: current Drinks per week: 2 Substance use: never Do You Feel Safe in your Home?: Yes Lack of Transportation: No Lack of Food: Never True Current Housing: I Have Housing Concerned About Future Housing: No Difficulty Paying Gas/Electric Bills: No Difficulty Paying for Meds: No Currently Unemployed: No Education: Decline to Answer Difficulty w/ Childcare or Family Care: No Spiritual care concerns: No Mod Sed Physical Exam Physical Exam Pre Procedural Exam: Normal: Appearance, Eyes, Ears, Nose, Neck, Throat, Airway, Lungs, Heart Size, Heart Rate, Heart Rhythm, Neuro Exam, Abdomen, Liver, Kidneys, Spleen, Breasts, Genitalia, Extremities and Skin Hours since solid foods: 8 Hours since liquid intake: 8 Mallampati Classification: class 1 Internal Medicine - PN: Obj Da Vital Signs Vital Signs: Vital Signs - 24 hr 03/03/24 14:00 03/03/24 16:00 03/03/24 16:00 Temperature Pulse Rate 61 62 Respiratory Rate Blood Pressure Pulse Oximetry Oxygen Delivery Room Air 03/03/24 16:21 03/03/24 18:00 03/03/24 20:00 Temperature 36.7 C 36.8 C Pulse Rate 57 L 60 62 Respiratory Rate 16 18 Blood Pressure 124/64 114/57 L Pulse Oximetry 98 98 Oxygen Delivery 03/03/24 20:00 03/03/24 20:00 03/03/24 21:14 Temperature Pulse Rate 57 L 66 66 Respiratory Rate 18 Blood Pressure Pulse Oximetry 98 Oxygen Delivery Room Air 03/03/24 23:00 03/04/24 00:00 03/04/24 00:00 Temperature Pulse Rate 42 L 42 L 42 L Respiratory Rate 18 Blood Pressure Pulse Oximetry 98 Oxygen Delivery Room Air 03/04/24 00:00 03/04/24 02:00 03/04/24 04:00 Temperature 36.9 C Pulse Rate 47 L 48 L 42 L Respiratory Rate 16 16 Blood Pressure 108/49 L Pulse Oximetry 98 98 Oxygen Delivery Room Air 03/04/24 04:00 03/04/24 05:00 03/04/24 06:00 Temperature 36.6 C Pulse Rate 42 L 49 L 46 L Respiratory Rate 16 Blood Pressure 126/58 L Pulse Oximetry 100 Oxygen Delivery 03/04/24 07:40 03/04/24 08:00 03/04/24 08:00 Temperature 36.8 C Pulse Rate 43 L 58 L Respiratory Rate 16 Blood Pressure 129/60 Pulse Oximetry 97 Oxygen Delivery Room Air 03/04/24 09:36 03/04/24 10:00 03/04/24 12:00 Temperature 36.9 C Pulse Rate 57 L 52 L 49 L Respiratory Rate 16 Blood Pressure 134/68 Pulse Oximetry 97 Oxygen Delivery 03/04/24 12:00 03/04/24 12:00 Temperature Pulse Rate 46 L Respiratory Rate Blood Pressure Pulse Oximetry Oxygen Delivery Room Air Intake/Output Intake/Output: Intake & Output 03/01/24 03/02/24 03/03/24 03/04/24 23:59 23:59 23:59 23:59 Intake Total 143.2 49.4 Output Total 600 200 Balance -456.8 -150.6 Meds/Results Medications: Active Medications Generic Name Dose Route Start Last Admin Trade Name Freq PRN Reason Stop Dose Admin Acetaminophen 650 mg 03/03/24 12:30 03/03/24 21:15 Acetaminophen 325 Mg Tablet PO 650 mg Q4H PRN Administration Headache Amlodipine Besylate 5 mg 03/04/24 09:00 03/04/24 09:37 Amlodipine Besylate 5 Mg Tablet PO 5 mg DAILY [facility] Administration Aspirin 81 mg 03/03/24 08:00 03/04/24 09:37 Aspirin 81 Mg Chewable Tablet PO 81 mg DAILY@0800 [facility] Administration Atorvastatin Calcium 40 mg 03/03/24 16:20 03/04/24 09:37 Atorvastatin 40 Mg Tablet PO 40 mg DAILY [facility] Administration Heparin Sodium (Porcine) 4,000 units 03/03/24 01:32 Heparin Sodium 5,000 Units/Ml Vial IV PUSH PRN PRN aPTT less than 55 seconds Heparin Sodium (Porcine) 2,500 units 03/03/24 01:32 03/04/24 06:56 Heparin Sodium 5,000 Units/Ml Vial IV PUSH 2,500 units PRN PRN Administration aPTT 55 - 70 seconds Heparin Sodium/Dextrose 25,000 units in 250 mls @ 7 mls/hr 03/03/24 01:35 03/04/24 06:55 Heparin Sodium/D5w 100 Units/Ml IV CONT 700 units/hr .Q24H [facility] 7 mls/hr Titration Protocol 700 UNITS/HR Losartan Potassium 25 mg 03/04/24 09:00 03/04/24 09:37 Losartan Potassium 25 Mg Tablet PO 25 mg DAILY [facility] Administration Metoprolol Tartrate 25 mg 03/03/24 11:50 03/04/24 09:36 Metoprolol Tartrate 25 Mg Tablet PO 25 mg Q12HR [facility] Administration Nitroglycerin 0.4 mg 03/03/24 11:47 03/03/24 12:03 Nitroglycerin Sl 0.4 Mg Tablet SUBLINGUAL 0.4 mg Q5MIN PRN Administration Chest Pain Nitroglycerin 0.5 inch 03/03/24 18:00 03/04/24 05:11 Nitroglycerin Ointment 1 Inch Dose TRANSDERM 0.5 inch Q6HR [facility] Administration Perflutren Lipid Microsphere 0 ml 03/03/24 11:46 Perflutren Lipid Microspheres 1.5 Ml Vial Diluted To 10 Ml Total Volume IV PUSH 03/06/24 11:47 ONCE PRN adequate visualization Protocol Radiology Results: ITS Impressions Chest X-Ray 03/02/24 21:33 IMPRESSION: No acute cardiopulmonary pathology. Labs 03/04/24 05:55 03/04/24 05:55 Labs: Laboratory Results - last 24 hr 03/03/24 03/03/24 03/04/24 14:38 21:13 00:00 WBC RBC Hgb Hct MCV MCH MCHC RDW Plt Count MPV Immature Gran % (Auto) Neut % (Auto) Lymph % (Auto) [place] % (Auto) Eos % (Auto) Baso % (Auto) Lymph # (Auto) [place] # (Auto) Eos # (Auto) Baso # (Auto) Abs Immat Gran (auto) Absolute Neuts (auto) Absolute Nucleated RBC Nucleated RBC % APTT 67.9 H 150.9 H Sodium Potassium Chloride Carbon Dioxide Anion Gap BUN Creatinine Estim Creat Clear Calc Estimated GFR Glucose Hemoglobin A1c 5.3 Calcium Magnesium Total Bilirubin AST ALT Alkaline Phosphatase Total Protein Albumin 03/04/24 05:55 WBC 3.6 L RBC 3.89 L Hgb 12.7 Hct 38.0 MCV 97.7 MCH 32.6 MCHC 33.4 RDW 12.1 Plt Count 193 MPV 10.9 H Immature Gran % (Auto) 0.3 Neut % (Auto) 40.9 L Lymph % (Auto) 45.1 H [place] % (Auto) 9.2 H Eos % (Auto) 3.4 Baso % (Auto) 1.1 Lymph # (Auto) 1.61 [place] # (Auto) 0.3 Eos # (Auto) 0.1 Baso # (Auto) 0.0 Abs Immat Gran (auto) 0.01 Absolute Neuts (auto) 1.5 Absolute Nucleated RBC 0.000 Nucleated RBC % 0.0 APTT 63.3 H Sodium 136 L Potassium 4.7 Chloride 103 Carbon Dioxide 26 Anion Gap 7 BUN 15 D Creatinine 0.64 L Estim Creat Clear Calc 88 Estimated GFR > 60 Glucose 80 Hemoglobin A1c Calcium 9.0 Magnesium 2.0 Total Bilirubin 1.4 H AST 48 H ALT 55 H Alkaline Phosphatase 94 Total Protein 7.0 Albumin 3.9 ASA Classification/Sedation ASA Classification/Sedation ASA Class: I Emergent: No Risks: Risks, benefits and alternatives explained and patient/family accepted plan for sedation. Patient re-evaluated immediately prior to sedation.
--- NOTE | 2024-03-04 12:45 | WPDHPUPDATE1 ---
History and Physical Update Update Date/Time: 03/04/24 12:45 History and Physical has been reviewed, including an updated exam of the patient. There are NO changes in the patient's condition. Risks, benefits, and alternatives have been discussed and questions answered. Patient agrees to proceed with procedure.
--- NOTE | 2024-03-04 12:45 | WPDCARDPROC ---
Cardiac Cath Procedure Note Date of procedure:: 03/04/24 Performing physician:: Milton Alfaro MD date of service 03/04/2024 Indication:: chest pain and NSTEMI Brief clinical history:: 49-year-old female with history of coronary dissection with 2 bare metal stents to the LAD presents with chest pain, elevated troponins with no ischemic changes on EKG. Procedure Procedure performed:: 1-Moderate sedation that started at 1:39 p.m.and ended at 2:03 p.m. a total duration 24 minutes using 2mg of Versed and 50mcg fentanyl. The registered nurse was ubaldo sawyer 2-Selective left and right coronary angiogram. 3-Left heart catheterization with measurement of LVEDP and measurement of gradient across aortic valve. 4- LV angiogram. 4-Right common femoral arterial angiogram. Sedation/Medication given:: Moderate sedation. Access site:: Right common femoral artery. Estimated blood loss:: 10cc Procedure note:: After informed consent patient was brought in to labor delivery specialist with the was draped and prepped in usual manner. Moderate sedation was given and the right groin was infiltrated using 1% lidocaine. Five [place] sheath was obtained using micropuncture needle and the modified Seldinger technique. Selective left coronary angiogram was done using JL4 catheter with the tip of the catheter placed in the left main coronary artery. Selective right coronary angiogram was done using JR4 catheter with the tip of the catheter placed to the right coronary artery. After that 5 [place] pigtail catheter was advanced across the aortic valve into the left ventricle with measurement of LVEDP and measurement of gradient across aortic valve. LV angiogram was done. Right common femoral arterial angiogram was done. hemostasis done using manual compression. Findings:: 1- left coronary artery is a large artery that divides into large LAD, large circumflex artery. Left main is Free of disease. 2- left anterior descending artery is a large artery that runs and wraps around the apex. Patent stents in the mid segment. 3- leftcircumflex artery is a large artery And dominant. No significant disease. 4- right coronary artery is Large with no significant disease. 5- LVEDP was 13 mmhg and no gradient across aortic valve. 6- opening arterial pressure was 148/86 and closing pressure was 117/76 7- LV angiogram shows normal ejection fraction for a focal area of hypokinesis of mid inferior wall. 7- right femoral artery angiogram shows no significant disease in the right common femoral artery. Conclusion:: - Patent stents LAD. - no significant CAD. Assessment and Plan Assessment and plan (1) Non-ST elevation [place] (NSTEMI): Code(s): I21.4 - Non-ST elevation (NSTEMI) myocardial infarction Status: Acute Assessment and Plan: - Will recommend to continue aspirin and add Plavix on discharge. - continue risk factor modification for CAD. - await echocardiogram.
[2024-03-04 14:13] LABS: Activated Clotting Time 129 SEC (74-137)
[2024-03-04] MEDS: SODIUM CHLORIDE 0.9% 125 ML IV CONT (17:05)
[2024-03-04] MEDS: ACETAMINOPHEN 325 MG TABLET 650 MG PO (20:59)
[2024-03-05] VITALS (16 sets, daily range): BP systolic 109–137; BP diastolic 40–78; PULSE 40–57; RESP 16–19; TEMP 36.7–37.1; O2SAT 97–99
[2024-03-05 05:37] LABS: Hematocrit 37.5 % (37.0-47.0); Hemoglobin 12.5 g/dL (12.0-15.0); Mean Corpuscular HGB Conc 33.3 g/dl (32-36); Mean Corpuscular Hemoglobin 32.7 pg (26-34); Mean Corpuscular Volume 98.2 fl (80-100); Mean Platelet Volume 11.1 fl (7.4-10.4); Platelet Count Result 177 k/mm3 (150-375); Red Blood Count 3.82 M/mm3 (4.2-5.4); Red Cell Distribution Width 12.3 % (11.5-14.5); White Blood Count 3.3 K/mm3 (4.5-10.0)
[2024-03-05 06:07] LABS: Alanine Aminotransferase 81 U/L (6-35); Albumin Level 3.7 g/dL (3.5-5.1); Alkaline Phosphatase 99 U/L (38-126); Anion Gap 4 mmol/L (4-12); Aspartate Amino Transferase 97 U/L (14-36); Bilirubin,Total 0.6 mg/dL (0.2-1.3); Blood Urea Nitrogen 17 mg/dL (7-17); Calcium 8.4 mg/dL (8.4-10.2); Carbon Dioxide 29 mmol/L (22-30); Chloride 104 mmol/L (98-107); Estimated CRCL calculation 84 ml/min; Estimated Glomerular Filt Rate > 60; Glucose 91 mg/dL (65-110); Potassium 4.6 mmol/L (3.4-5.0); Sodium 137 mmol/L (137-145)
[2024-03-05] MEDS: ATORVASTATIN 40 MG TABLET PO (09:09)
[2024-03-05] MEDS: amLODIPine BESYLATE 5 MG TABLET PO (09:09)
[2024-03-05] MEDS: CLOPIDOGREL BISULFATE 75 MG TABLET PO (09:09)
[2024-03-05] MEDS: ASPIRIN 81 MG CHEWABLE TABLET PO (09:12)
[2024-03-05] MEDS: SODIUM CHLORIDE 0.9% IV 1,000 ML 50 ML IV CONT (11:00)
--- NOTE | 2024-03-05 11:03 | PM.IMPN ---
Progress Note: A&P Assessment and Plan (1) Non-ST elevation [place] (NSTEMI): Code(s): I21.4 - Non-ST elevation (NSTEMI) myocardial infarction Status: Acute (2) Hypertension: Code(s): I10 - Essential (primary) hypertension Status: Acute (3) Coronary artery dissection: Code(s): I25.42 - Coronary artery dissection Status: Acute Plan Patient underwent cardiac catheterization yesterday which did not show any significant abnormalities . Cardiology recommended to rule out PE which I agree. Ordered CTA to rule out PE. Radiologist was concerned about patient being receiving subsequent contrast material in a short period of time. Today started the patient with gentle hydration sodium chloride at 50 mL/hr. Holding losartan. Will check her Cr tomorrow for any peak from cardiac cath and if no rise in Cr,will perform CTA to PE tomorrow. NSTEMI Patient presented with chest pain Troponin elevated Chest x-ray unremarkable EKG no acute changes. LDL is 55 A1c pending, echo pending. Continue aspirin Lipitor metoprolol heparin infusion Underwent cardiac catheterization no significant finding Ordered CTA to rule out PE Cardiology consulted. Hypertension Address home medications with clinical course. History of coronary artery dissection Dense normal care DVT prophylaxis patient is on heparin infusion Full code Surrogate decision maker is mc Mckeon Subjective Date/time seen: 03/05/24 11:03 Interval history: Patient underwent cardiac catheterization yesterday which did not show any significant abnormalities . Cardiology recommended to rule out PE which I agree. Ordered CTA to rule out PE. Radiologist was concerned about patient being receiving subsequent contrast material in a short period of time. Today started the patient with gentle hydration sodium chloride at 50 mL/hr. Holding losartan. Will check her Cr tomorrow for any peak from cardiac cath and if no rise in Cr,will perform CTA to PE tomorrow. Review of Systems Review of Systems: All other systems reviewed and negative except as noted in the HPI above. Exam Narrative: General: alert and comfortable Eyes: EOMI, PERRLA ENNT External ears normal, Neck is supple, no masses, Respiratory systems: Clear to auscultation Cardiovascular S1, S2, normal rhythm, no murmur, rub, or gallop; no thrill or palpable murmurs on palpation. Gastrointestinal: soft, non-tender, and non-distended abdomen with no masses; BS present Skin: no rash, lesions, ulcerations, subcutaneous nodules or induration Musculoskeletal: no abnormality and no tenderness, normal ROM Neurologic: Alert and oriented x3, non focal Mental Status Exam: normal affect Objective Data Vital Signs Vital Signs: Vital Signs - 24 hr 03/04/24 12:00 03/04/24 12:00 03/04/24 12:00 Temperature 98.5 F Pulse Rate 49 L 46 L Respiratory Rate 16 Blood Pressure 134/68 Pulse Oximetry 97 Oxygen Delivery Room Air 03/04/24 14:30 03/04/24 14:45 03/04/24 15:01 Temperature 98.6 F Pulse Rate 47 L 46 L 47 L Respiratory Rate 16 16 16 Blood Pressure 120/57 L 121/49 L 124/61 Pulse Oximetry 99 98 98 Oxygen Delivery Room Air Room Air Room Air 03/04/24 15:05 03/04/24 15:10 03/04/24 15:15 Temperature Pulse Rate 53 L 47 L 46 L Respiratory Rate 17 17 16 Blood Pressure 109/68 120/57 L 121/47 L Pulse Oximetry 98 98 95 Oxygen Delivery Room Air Room Air Room Air 03/04/24 15:20 03/04/24 15:26 03/04/24 15:30 Temperature Pulse Rate 48 L 46 L 56 L Respiratory Rate 16 16 14 Blood Pressure 117/51 L 117/55 L 117/44 L Pulse Oximetry 96 97 98 Oxygen Delivery Room Air Room Air Room Air 03/04/24 15:45 03/04/24 16:00 03/04/24 16:00 Temperature Pulse Rate 48 L 49 L Respiratory Rate 16 16 Blood Pressure 103/57 L 117/72 Pulse Oximetry 99 97 Oxygen Delivery Room Air Room Air Room Air 03/04/24 16:15 03/04/24 16:30 03/04/24 17:00 Temperature 98.3 F Pulse Rate 47 L 50 L 57 L Respiratory Rate 16 14 16 Blood Pressure 111/53 L 122/56 L 126/54 L Pulse Oximetry 98 100 98 Oxygen Delivery Room Air Room Air 03/04/24 17:50 03/04/24 18:00 03/04/24 18:30 Temperature 98.4 F 98.2 F Pulse Rate 63 50 L 52 L Respiratory Rate 18 16 Blood Pressure 104/40 L 114/39 L Pulse Oximetry 96 96 Oxygen Delivery 03/04/24 19:40 03/04/24 20:00 03/04/24 20:00 Temperature 97.8 F Pulse Rate 55 L 55 L 59 L Respiratory Rate 18 16 Blood Pressure 155/84 H Pulse Oximetry 95 95 Oxygen Delivery Room Air 03/04/24 20:59 03/04/24 21:00 03/04/24 23:00 Temperature 98.6 F Pulse Rate 53 L 56 L 45 L Respiratory Rate 16 18 Blood Pressure 116/38 L Pulse Oximetry 98 Oxygen Delivery 03/04/24 23:34 03/04/24 23:36 03/05/24 03:56 Temperature Pulse Rate 56 L 56 L 40 L Respiratory Rate 18 Blood Pressure Pulse Oximetry 98 Oxygen Delivery Room Air 03/05/24 03:58 03/05/24 04:00 03/05/24 06:00 Temperature 98.0 F Pulse Rate 40 L 48 L 44 L Respiratory Rate 18 19 Blood Pressure 109/42 L Pulse Oximetry 98 98 Oxygen Delivery Room Air 03/05/24 07:26 Temperature 98.1 F Pulse Rate 54 L Respiratory Rate 18 Blood Pressure 114/40 L Pulse Oximetry 97 Oxygen Delivery Intake/Output Intake/Output: Intake & Output 03/02/24 03/03/24 03/04/24 03/05/24 23:59 23:59 23:59 23:59 Intake Total 143.2 389.4 570 Output Total 600 950 450 Balance -456.8 -560.6 120 Meds/Results Medications: Active Medications Generic Name Dose Route Start Last Admin Trade Name Freq PRN Reason Stop Dose Admin Acetaminophen 650 mg 03/03/24 12:30 03/04/24 20:59 Acetaminophen 325 Mg Tablet PO 650 mg Q4H PRN Administration Headache Amlodipine Besylate 5 mg 03/04/24 09:00 03/05/24 09:09 Amlodipine Besylate 5 Mg Tablet PO 5 mg DAILY PEARL Administration Aspirin 81 mg 03/03/24 08:00 03/05/24 09:12 Aspirin 81 Mg Chewable Tablet PO 81 mg DAILY@0800 PEARL Administration Atorvastatin Calcium 40 mg 03/03/24 16:20 03/05/24 09:09 Atorvastatin 40 Mg Tablet PO 40 mg DAILY PEARL Administration Clopidogrel Bisulfate 75 mg 03/05/24 09:00 03/05/24 09:09 Clopidogrel Bisulfate 75 Mg Tablet PO 75 mg QAM PEARL Administration Sodium Chloride 1,000 mls @ 50 mls/hr 03/05/24 09:05 Normal Saline Iv IV CONT .Q20H PEARL Losartan Potassium 25 mg 03/04/24 09:00 03/05/24 09:07 Losartan Potassium 25 Mg Tablet PO Not Given DAILY PEARL Metoprolol Tartrate 25 mg 03/03/24 11:50 03/05/24 09:12 Metoprolol Tartrate 25 Mg Tablet PO Not Given Q12HR PEARL Miscellaneous Information 0 each 03/05/24 00:01 Eucerin - Please Add Application Site To Order Comments XX 04/04/24 00:00 CLARIFY PEARL Multi-Ingred Cream/Lotion/Oil/Oint 1 applic 03/06/24 09:00 Eucerin Cream 120 Gm Jar TOPICAL DAILY PEARL Nitroglycerin 0.4 mg 03/03/24 11:47 03/03/24 12:03 Nitroglycerin Sl 0.4 Mg Tablet SUBLINGUAL 0.4 mg Q5MIN PRN Administration Chest Pain Perflutren Lipid Microsphere 0 ml 03/03/24 11:46 Perflutren Lipid Microspheres 1.5 Ml Vial Diluted To 10 Ml Total Volume IV PUSH 03/06/24 11:47 ONCE PRN adequate visualization Protocol Radiology Results: ITS Impressions Chest X-Ray 03/02/24 21:33 IMPRESSION: No acute cardiopulmonary pathology. Labs Labs: Laboratory Results - last 24 hr 03/04/24 03/05/24 14:12 04:48 WBC 3.3 L RBC 3.82 L Hgb 12.5 Hct 37.5 MCV 98.2 MCH 32.7 MCHC 33.3 RDW 12.3 Plt Count 177 MPV 11.1 H Activ Coag Time Kaolin 129 Sodium 137 Potassium 4.6 Chloride 104 Carbon Dioxide 29 Anion Gap 4 BUN 17 Creatinine 0.68 L Estim Creat Clear Calc 84 Estimated GFR > 60 Glucose 91 Calcium 8.4 Total Bilirubin 0.6 AST 97 H ALT 81 H Alkaline Phosphatase 99 Total Protein 6.0 L Albumin 3.7
--- NOTE | 2024-03-05 15:41 | P.PNCA_ITS ---
Progress Note: A&P Assessment and Plan (1) Non-ST elevation [place] (NSTEMI): Code(s): I21.4 - Non-ST elevation (NSTEMI) myocardial infarction Status: Acute Assessment and Plan: Cardiac catheterization 03/05 showed patent stents in the LAD, no significant CAD. 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 Continue statin. Echocardiogram showed LVEF 60-65%, no regional wall motion abnormalities noted. No significant valvular disease. Patient stable for discharge from a cardiac standpoint. Patient to follow up with her primary warehouse helper after discharge. (2) Chest pain: Code(s): R07.9 - Chest pain, unspecified Status: Acute Assessment and Plan: As above. Pending CTA to rule out PE. 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 Patient should not have her Adderall restarted. I think given her history of coronary dissection and hypertension, utilizing a stimulant is not optimal. (4) Hypertension: Code(s): I10 - Essential (primary) hypertension Status: Acute Assessment and Plan: Stable. Continue Losartan, Amlodipine. Plan Cardiology will sign off at this time. Subjective Date/time seen: 03/05/24 15:41 Interval history: Reason for visit: NSTEMI HPI: Patient is a 49-year-old female who for history has a diagnosis of spontaneous coronary dissection. She did received 2 bare metal stents to the LAD. Original catheterization performed on September 19, [address] Woodard and she had a follow-up catheterization in September of 2013 which showed patent stents. At that time patient had spontaneous coronary dissection of the LAD and underwent 2 bare metal stents. She has been seen Dr. Armstrong at [facility] for the past several number of years. She had been doing fine up until last night when she had acute onset of burning in her chest. She took a Tums with no relief. The burning her chest was severe it was 9/10. Then radiated to the left arm and then to both arms. This is a similar presentation as to what she had in 2014. She has been started on heparin and given aspirin. Pain is better and is currently a 4/10. She has otherwise been doing okay and denies any recent chest pain with exertion, unusual shortness of breath. She does have asthma but no unusual shortness of breath, syncope, presyncope, paroxysmal nocturnal dyspnea, orthopnea, edema or palpitations. EKG showed no acute ST or T-wave abnormalities but troponins are elevated and up trending Date of service 03/05: Feeling better today. Awaiting CTA. Review of Systems Review of Systems: All systems reviewed & are unremarkable except as noted in HPI and below (HPI) Exam Const: General: no acute distress HENMT: Mouth: Yes moist mucous membranes Eyes: General: appearance normal, both eyes and all related structures Sclera: sclerae normal Resp: Effort & Inspection: normal respiratory effort Cardio: Rate: regular rate Rhythm: regular rhythm Skin: General skin exam: normal color Neuro: Speech: normal speech Psych: Mental Status: mental status grossly normal Affect: normal affect Objective Data Vital Signs Vital Signs: Vital Signs - 24 hr 03/04/24 15:45 03/04/24 16:00 03/04/24 16:00 Temperature Pulse Rate 48 L 49 L Respiratory Rate 16 16 Blood Pressure 103/57 L 117/72 Pulse Oximetry 99 97 Oxygen Delivery Room Air Room Air Room Air 03/04/24 16:15 03/04/24 16:30 03/04/24 17:00 Temperature 36.8 C Pulse Rate 47 L 50 L 57 L Respiratory Rate 16 14 16 Blood Pressure 111/53 L 122/56 L 126/54 L Pulse Oximetry 98 100 98 Oxygen Delivery Room Air Room Air 03/04/24 17:50 03/04/24 18:00 03/04/24 18:30 Temperature 36.9 C 36.8 C Pulse Rate 63 50 L 52 L Respiratory Rate 18 16 Blood Pressure 104/40 L 114/39 L Pulse Oximetry 96 96 Oxygen Delivery 03/04/24 19:40 03/04/24 20:00 03/04/24 20:00 Temperature 36.6 C Pulse Rate 55 L 55 L 59 L Respiratory Rate 18 16 Blood Pressure 155/84 H Pulse Oximetry 95 95 Oxygen Delivery Room Air 03/04/24 20:59 03/04/24 21:00 03/04/24 23:00 Temperature 37.0 C Pulse Rate 53 L 56 L 45 L Respiratory Rate 16 18 Blood Pressure 116/38 L Pulse Oximetry 98 Oxygen Delivery 03/04/24 23:34 03/04/24 23:36 03/05/24 03:56 Temperature Pulse Rate 56 L 56 L 40 L Respiratory Rate 18 Blood Pressure Pulse Oximetry 98 Oxygen Delivery Room Air 03/05/24 03:58 03/05/24 04:00 03/05/24 06:00 Temperature 36.7 C Pulse Rate 40 L 48 L 44 L Respiratory Rate 18 19 Blood Pressure 109/42 L Pulse Oximetry 98 98 Oxygen Delivery Room Air 03/05/24 07:26 03/05/24 08:00 03/05/24 08:00 Temperature 36.7 C Pulse Rate 54 L 56 L Respiratory Rate 18 Blood Pressure 114/40 L Pulse Oximetry 97 Oxygen Delivery Room Air 03/05/24 10:00 03/05/24 11:54 Temperature 36.8 C Pulse Rate 52 L 44 L Respiratory Rate 16 Blood Pressure 113/57 L Pulse Oximetry 99 Oxygen Delivery Intake/Output Intake/Output: Intake & Output 03/02/24 03/03/24 03/04/24 03/05/24 23:59 23:59 23:59 23:59 Intake Total 143.2 389.4 690 Output Total 600 950 450 Balance -456.8 -560.6 240 Meds/Results Medications: Active Medications Generic Name Dose Route Start Last Admin Trade Name Freq PRN Reason Stop Dose Admin Acetaminophen 650 mg 03/03/24 12:30 03/04/24 20:59 Acetaminophen 325 Mg Tablet PO 650 mg Q4H PRN Administration Headache Amlodipine Besylate 5 mg 03/04/24 09:00 03/05/24 09:09 Amlodipine Besylate 5 Mg Tablet PO 5 mg DAILY PEARL Administration Aspirin 81 mg 03/03/24 08:00 03/05/24 09:12 Aspirin 81 Mg Chewable Tablet PO 81 mg DAILY@0800 PEARL Administration Atorvastatin Calcium 40 mg 03/03/24 16:20 03/05/24 09:09 Atorvastatin 40 Mg Tablet PO 40 mg DAILY PEARL Administration Clopidogrel Bisulfate 75 mg 03/05/24 09:00 03/05/24 09:09 Clopidogrel Bisulfate 75 Mg Tablet PO 75 mg QAM PEARL Administration Sodium Chloride 1,000 mls @ 50 mls/hr 03/05/24 09:05 03/05/24 11:00 Normal Saline Iv IV CONT 50 mls/hr .Q20H PEARL Administration Losartan Potassium 25 mg 03/04/24 09:00 03/05/24 09:07 Losartan Potassium 25 Mg Tablet PO Not Given DAILY PEARL Metoprolol Tartrate 25 mg 03/03/24 11:50 03/05/24 09:12 Metoprolol Tartrate 25 Mg Tablet PO Not Given Q12HR PEARL Multi-Ingred Cream/Lotion/Oil/Oint 1 applic 03/06/24 09:00 Eucerin Cream 120 Gm Jar TOPICAL DAILY PEARL Nitroglycerin 0.4 mg 03/03/24 11:47 03/03/24 12:03 Nitroglycerin Sl 0.4 Mg Tablet SUBLINGUAL 0.4 mg Q5MIN PRN Administration Chest Pain Perflutren Lipid Microsphere 0 ml 03/03/24 11:46 Perflutren Lipid Microspheres 1.5 Ml Vial Diluted To 10 Ml Total Volume IV PUSH 03/06/24 11:47 ONCE PRN adequate visualization Protocol Radiology Results: ITS Impressions Chest X-Ray 03/02/24 21:33 IMPRESSION: No acute cardiopulmonary pathology. Labs Labs: Laboratory Results - last 24 hr 03/05/24 04:48 WBC 3.3 L RBC 3.82 L Hgb 12.5 Hct 37.5 MCV 98.2 MCH 32.7 MCHC 33.3 RDW 12.3 Plt Count 177 MPV 11.1 H Sodium 137 Potassium 4.6 Chloride 104 Carbon Dioxide 29 Anion Gap 4 BUN 17 Creatinine 0.68 L Estim Creat Clear Calc 84 Estimated GFR > 60 Glucose 91 Calcium 8.4 Total Bilirubin 0.6 AST 97 H ALT 81 H Alkaline Phosphatase 99 Total Protein 6.0 L Albumin 3.7
[2024-03-05 21:43] LABS: Pregnancy On Board Control Positive; Urine Pregnancy Test Negative
[2024-03-06] VITALS (8 sets, daily range): BP systolic 115–134; BP diastolic 49–61; PULSE 45–102; RESP 16–18; TEMP 36.7–36.8; O2SAT 97–100
[2024-03-06 04:17] LABS: Hematocrit 34.6 % (37.0-47.0); Hemoglobin 11.6 g/dL (12.0-15.0); Mean Corpuscular HGB Conc 33.5 g/dl (32-36); Mean Corpuscular Hemoglobin 32.5 pg (26-34); Mean Corpuscular Volume 96.9 fl (80-100); Platelet Count Result 149 k/mm3 (150-375); Red Blood Count 3.57 M/mm3 (4.2-5.4); Red Cell Distribution Width 11.9 % (11.5-14.5); White Blood Count 3.3 K/mm3 (4.5-10.0)
[2024-03-06 04:36] LABS: Alanine Aminotransferase 72 U/L (6-35); Albumin Level 3.3 g/dL (3.5-5.1); Alkaline Phosphatase 92 U/L (38-126); Anion Gap 4 mmol/L (4-12); Aspartate Amino Transferase 63 U/L (14-36); Bilirubin,Total 0.6 mg/dL (0.2-1.3); Blood Urea Nitrogen 11 mg/dL (7-17); Calcium 8.1 mg/dL (8.4-10.2); Carbon Dioxide 28 mmol/L (22-30); Chloride 106 mmol/L (98-107); Estimated CRCL calculation 92 ml/min; Estimated Glomerular Filt Rate > 60; Glucose 96 mg/dL (65-110); Potassium 4.2 mmol/L (3.4-5.0); Sodium 138 mmol/L (137-145)
[2024-03-06] MEDS: SODIUM CHLORIDE 0.9% IV 1,000 ML 50 ML IV CONT (06:44)
[2024-03-06] MEDS: ASPIRIN 81 MG CHEWABLE TABLET PO (08:52)
[2024-03-06] MEDS: CLOPIDOGREL BISULFATE 75 MG TABLET PO (08:53)
[2024-03-06] MEDS: amLODIPine BESYLATE 5 MG TABLET PO (08:53)
--- NOTE | 2024-03-06 13:48 | P.DS_ITS ---
DS: Admitting Diagnosis Discharge Date 03/06/2024 Admitting Diagnosis Chest pain DS: Discharge Diagnosis Discharge Diagnosis (1) Non-ST elevation [place] (NSTEMI): Code(s): I21.4 - Non-ST elevation (NSTEMI) myocardial infarction Status: Acute (2) Hypertension: Code(s): I10 - Essential (primary) hypertension Status: Acute (3) Coronary artery dissection: Code(s): I25.42 - Coronary artery dissection Status: Acute DS: Summary Hospital Course Hospital Course: 49-year-old female past medical history of hypertension, history of coronary artery dissection who presented via account of chest pain. Patient reported she was in her usual state of health 11 point SP left long history having a burning chest pain about 9/10 in intensity quickly radiating to the left and right arms. Denies any cold sweats, noted mild shortness of breath but denies any vomiting no nausea no lightheadedness no loss of consciousness no abdominal pain or diarrhea dysuria no focal symptoms. Stated he was similar to symptoms she had when she was diagnosed of a coronary artery dissection which prompted her to present to the ER for further evaluation and care. ER notable for temperature 98.5?, heart rate 79, respiratory 20, saturation 100% on room air, blood pressure 148/85. Labs notable troponin 0.434, repeat was 0.5. LDL is 55. Patient was started on heparin drip and Cardiology consult consulted prior to admission. I assumed care on 03/04: Patient underwent cardiac catheterization 03/04 which did not show any significant abnormalities . Cardiology recommended to rule out PE which I agree. Ordered CTA to rule out PE. Radiologist was concerned about patient being receiving subsequent contrast material in a short period of time. Today started the patient with gentle hydration sodium chloride at 50 mL/hr. Holding losartan. Will check her Cr tomorrow for any peak from cardiac cath and if no rise in Cr,will perform CTA to PE tomorrow.Performed CTA did not show PE. Advise the patient to hydrate well due to contrast exposure from Cardiac cath and CTA. Patient is taking Adderall, as per Cardiology advise not recommending to take it due past medical history of coronary dissection.Currently stopping Adderall,advised to discuss with her psychiatry and choose a different option. Try avoid using any stimulant. Please hydrate well. Check Cr in a week. Status at Discharge Cognitive/behavioral status at discharge: Stable Time Spent with Patient Time attestation: Total time spent providing and/or coordinating discharge services:45 mins Exam Narrative: General: alert and comfortable Eyes: EOMI, PERRLA ENNT External ears normal, Neck is supple, no masses, Respiratory systems: Clear to auscultation Cardiovascular S1, S2, normal rhythm, no murmur, rub, or gallop; no thrill or palpable murmurs on palpation. Gastrointestinal: soft, non-tender, and non-distended abdomen with no masses; BS present Skin: no rash, lesions, ulcerations, subcutaneous nodules or induration Musculoskeletal: no abnormality and no tenderness, normal ROM Neurologic: Alert and oriented x3, non focal Mental Status Exam: normal affect DS: Data Data Completed and Pending Labs on day of discharge: Labs from last 24 hours 03/06/24 03/05/24 03:57 21:28 WBC 3.3 L RBC 3.57 L Hgb 11.6 L Hct 34.6 L MCV 96.9 MCH 32.5 MCHC 33.5 RDW 11.9 Plt Count 149 L MPV 11.0 H Sodium 138 Potassium 4.2 Chloride 106 Carbon Dioxide 28 Anion Gap 4 BUN 11 D Creatinine 0.61 L Estim Creat Clear Calc 92 Estimated GFR > 60 Glucose 96 Calcium 8.1 L Total Bilirubin 0.6 AST 63 H ALT 72 H Alkaline Phosphatase 92 Total Protein 6.0 L Albumin 3.3 L Urine Test Negative Discharge Plan Discharge Attending physician on discharge: Jonatan Ibrahim Consulting providers: Gavin Hoyt Discharging Clinician: Jonatan Ibrahim Anticipated Discharge Date/Time: 03/06/24 13:50 Patient Disposition: Home, Self-Care Activity: as tolerated Diet: heart healthy Discharge Instructions: Patient is taking Adderall, as per Cardiology advise not recommending to take it due past medical history of coronary dissection. Currently stopping Adderall, discuss with your psychiatry and choose a different option. Try avoid using any stimulant. Please hydrate well. Check Cr in a week. Rise slowly from a lying or sitting position. Pause before standing or walking. Avoid NSAIDs (ibuprofen, naproxen, Aleve). Tylenol is safe to take. Follow-up with your primary care provider in 1-2 weeks. Please call for appointment. Follow-up with Cardiology in 2-4 weeks. Please call for an appointment. Thank you for using [facility] for your health care needs. Patient Instructions: Antibiotic Form, Moderate Sedation (DC), Left Heart Catheterization (DC) Patient Language: Montenegrin Stand Alone Forms: General Discharge Information Follow-up/Referrals: Gavin Hoyt MD [Physician] - Discharge Medications: New aspirin [Children's Aspirin] 81 mg Tablet,Chewable 81 mg PO DAILY@0800 Qty: 30 0RF atorvastatin 40 mg Tablet 40 mg PO DAILY Qty: 30 0RF clopidogrel 75 mg Tablet 75 mg PO QAM Qty: 30 0RF losartan 25 mg Tablet 25 mg PO DAILY Qty: 30 0RF Continued Airsupra 90-80 mcg/actuation HFA aerosol inhaler 2 inh inhalation QID PRN (Reason: shortness of breath or wheezing) amlodipine 5 mg tablet 5 mg PO DAILY losartan 25 mg tablet 25 mg PO DAILY albuterol sulfate 90 mcg/actuation HFA aerosol inhaler 2 puff inhalation QID PRN (Reason: shortness of breath or wheezing) Discontinued dextroamphetamine-amphetamine 10 mg tablet 20 mg PO DAILY Other Ambulatory Orders: Comprehensive Metabolic Panel (Routine) Timeframe: 1 Week Location: Determined by Patient Ordered By: Jonatan Ibrahim Date of admission: 03/03/24 01:39 Primary Care Provider: Brandin,Bipin ([facility]) Admitting Provider: Lisa Hoyos V. Attending physician on admission: Lisa Hoyos V. Condition: Stable
--- OUTSIDE RECORDS SUMMARY | 2024-03-10 02:11 | XMS_ITS | Encounter Summary ---
Author Organization [facility] Address [address] [place] [address] Care Team Providers Care In Store Marketing Representative Name Role Phone Tristin Ghotra MD Primary Care Provider [phone] Reason for Visit * Reason Comments Follow-up Encounter Details Date Type Department Care Team ([facility] Contact Info) Description 10/18/2017 12:30 PM CDT Office Visit [facility] - [address], [facility] [address] [place] [phone] Matt Armstrong MD [address] [place] [address] [place] [id number] Spontaneous dissection of coronary artery (Primary Dx); Essential hypertension; History of ND (myocardial infarction); History of near syncope; S/P [...] for HTN, prior near syncope and prior ND and stenting due to spontaneous coronary dissection [...] ND (myocardial infarction) 09/06/2017 Priority: Not Prioritized Echo [...] born in 2003. 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 Family History Problem [...] Essential hypertension History of ND (myocardial infarction) History of near syncope S/P [...] EF post-ND, no B-dylan is very reasonable. 6. When she started Nifedipine, patient elected to stop Ramipril. 7. She is planning to start exercise w/ [employer] osmar and spin for exercise. 8. [...] agrees to check back in with her Heavy Forger. 12. Routine f/u with us in 8 weeks. She will call me in a week w/ update on exercise and symptoms. Matt Armstrong III, MD, [facility] [email or web address] * Roxanne Epperson - 10/18/2017 12:46 PM [...] of ND (myocardial infarction) Old myocardial infarction History of near syncope Personal history of other specified diseases S/P coronary artery stent placement Postsurgical percutaneous transluminal coronary angioplasty status documented in this encounter Care Teams In Store Marketing Representative Relationship Specialty Start Date End Date Tristin Ghotra MD [address] [facility] [address] [place] [phone] PCP - General 04/04/12 documented as of this encounter
--- OUTSIDE RECORDS SUMMARY | 2024-03-10 02:11 | XMS_ITS | Clinical Summary ---
Author Organization [facility] [employer] Address [address] [facility] [place] [address] Care Team Providers Care Cuff Setter Lockstitch Name Role Phone Tristin Ghotra MD Primary Care Provider Source Comments [facility] [employer],non-owned Affiliates and Associated Physician Practices is amultiple site organization consisting of ambulatory clinics and hospital sitesin [place], [place], [place] and [place]. This disclosure is being madepursuant to the Care Everywhere program and may not contain all information available regarding this patient. Last updated 17.[facility] [employer] Allergies No known active allergies Medications * [...] Diagnosed Date Elevated LFTs 09/06/2017 History of [place] (myocardial infarction) 09/06/2017 Overview (09/07/2017): Echo 09/2013 [...] FLEX SIG - COLON CA SCREENING 1976 PAP SMEAR 1976 HIV SCREENING 02/03/1991 HEPATITIS C SCREENING 01/30/1994 DTAP/TDAP/TD VACCINES (1 - Tdap) 02/03/1995 HEPATITIS B VACCINE (1 of 3 - 19+ 3-dose series) 02/03/1995 MAMMOGRAM 12/27/2020 12/27/2018 COVID-19 VACCINE (1 - 2023-2 5 season) 2023 INFLUENZA VACCINE (#1) 2023 DEPRESSION SCREENING 02/21/2024 ZOSTER VACCINE (1 of 2) 02/03/2026 HIB VACCINE Aged Out No longer eligi ble based on patient's age to complete this topic HPV VACCINE Aged Out No longer eligi ble based on patient's age to complete this topic MENINGOCOCCAL (Group B) VACCINE Aged Out No longer eligible based on patient's age to complete this topic MENINGOCOCCAL VACCINE Aged Out No leoncio mitch eligible based on patient's age to complete this topic PNEUMOCOCCAL VACCINE Aged Out No long er eligible based on patient's age to complete this topic Care Teams Cuff Setter Lockstitch Relationship Specialty Start Date End Date Tristin Ghotra MD [address] [place] [place] [address] PCP - General 04/04/12
--- OUTSIDE RECORDS SUMMARY | 2024-03-10 02:11 | XMS_ITS | Encounter Summary ---
Author Organization [facility] Address [address] [place] [address] Care Team Providers Care Stringing Machine Tender Name Role Phone Tristin Ghotra MD Primary Care Provider Reason for Visit * Reason Comments Refill Request Encounter Details Date Type Department Care Team (Late st Contact Info) Description 05/16/2018 Refill [facility] - [address], [place] [address] [place] [address] Matt Armstrong MD [address] [place] [address] Refill Request Social History Tobacco Use [...] on filedocumented in this encounter Care Teams Stringing Machine Tender Relationship Specialty Start Date End Date Tristin Ghotra MD [address] [place] [address] [address] [place] [address] PCP - General 04/04/12 documented as of this encounter
--- OUTSIDE RECORDS SUMMARY | 2024-03-10 02:11 | XMS_ITS | Encounter Summary ---
Author Organization [facility] Address [address] [facility] [place] [address] Care Team Providers Care Tooth Cutter Clutch Name Role Phone Tristin Ghotra MD Primary Care Provider [phone] Reason for Visit * Reason Onset Date Comments MEDICATION REFILL 11/21/2018 Encounter Details Date Type Department Care Team (Late st Contact Info) Description 11/21/2018 [facility] [address], [facility] [address] [place] [phone] Matt Armstrong MD [address] [place] [address] MEDICATION REFILL Social History Tobacco Use [...] on filedocumented in this encounter Care Teams Tooth Cutter Clutch Relationship Specialty Start Date End Date Tristin Ghotra MD [address] [place] [address] [address] [place] [address] PCP - General 04/04/12 documented as of this encounter
--- OUTSIDE RECORDS SUMMARY | 2024-03-10 02:11 | XMS_ITS | Referral Summary ---
Author Organization [facility] [employer] Address [address] [facility] [place] [address] Care Team Providers Care Head Shipper Name Role Phone Tristin Ghotra MD Primary Care Provider [phone] Source Comments [facility] [employer],non-owned Affiliates and Associated Physician Practices is amultiple site organization consisting of ambulatory clinics and hospital sitesin [place], [place], [place] and [place]. This disclosure is being madepursuant to the Care Everywhere program and may not contain all information available regarding this patient. Last updated 17.[facility] [employer] Allergies No known active allergies Medications * [...] Diagnosed Date Elevated LFTs 09/06/2017 History of [place] (myocardial infarction) 09/06/2017 Overview (09/07/2017): Echo 09/2013 [...] of Treatment Not on file Care Teams Head Shipper Relationship Specialty Start Date End Date Tristin Ghotra MD [address] [facility] [address] [place] [address] PCP - General 04/04/12
--- OUTSIDE RECORDS SUMMARY | 2024-03-10 02:11 | XMS_ITS | Encounter Summary ---
Author Organization [facility] Address [address] [facility] [place] [address] Care Team Providers Care Environmental Economist Name Role Phone Tirstin Ghotra MD Primary Care Provider [phone] Reason for Visit * Reason Onset Date Comments MEDICATION REFILL 10/03/2017 Encounter Details Date Type Department Care Team (Late st Contact Info) Description 10/03/2017 Refill [facility] - [address], [facility] [address] [place] [phone] Matt Armstrong MD [address] [place] [address] MEDICATION REFILL Social History Tobacco Use [...] on filedocumented in this encounter Care Teams Environmental Economist Relationship Specialty Start Date End Date Tristin Ghotra MD [address] [place] [address] [address] [place] [address] PCP - General 04/04/12 documented as of this encounter
--- OUTSIDE RECORDS SUMMARY | 2024-03-10 02:11 | XMS_ITS | Encounter Summary ---
Author Organization [facility] Address [address] [place] [address] Care Team Providers Care Leasing Director Name Role Phone Tristin Ghotra MD Primary Care Provider Reason for Visit * Reason Comments Follow-up Encounter Details Date Type Department Care Team (Late Contact Info) Description 12/14/2017 11:30 AM CDT Office Visit [facility] - [address], [facility] [address] [place] [phone] Matt Armstrong MD [address] [place] [address] [place] [address] Spontaneous dissection of coronary artery (Primary Dx); Essential hypertension; History of [place] (myocardial infarction); S/P coronary artery stent placement; [...] for HTN, prior near syncope and prior WI and stenting due to spontaneous coronary dissection [...] 09/06/2017 Priority: Not Prioritized ??? History of WI (myocardial infarction) 09/06/2017 Priority: Not Prioritized Echo [...] of coronary artery Essential hypertension History of [place] (myocardial infarction) S/P coronary artery stent placement [...] agrees to check back in with her Rail Car Repair Carman. 9. Routine f/u with us in 10 weeks. Matt Armstrong III, MD, [facility] [email or web address] documented in this encounter Plan of Treatment Not on file documented as of this encounter Visit Diagnoses Diagnosis Spontaneous dissection of coronary artery- Primary Essential hypertension History of WI (myocardial infarction) Old myocardial infarction S/P coronary artery stent placement Postsurgical percutaneous transluminal coronary angioplasty status History of near syncope Personal history of other specified diseases documented in this encounter Care Teams Leasing Director Relationship Specialty Start Date End Date Tristin Ghotra MD [facility] [address] [place] [address] PCP - General 04/04/12 documented as of this encounter
--- OUTSIDE RECORDS SUMMARY | 2024-03-10 02:11 | XMS_ITS | Encounter Summary ---
Author Organization [facility] Address [address] [place] [address] Care Team Providers Care Clinical Administrative Coordinator Name Role Phone Tristin Ghotra MD Primary Care Provider [phone] Reason for Visit * Reason Comments Follow-up Encounter Details Date Type Department Care Team ([facility] Contact Info) Description 12/05/2019 12:00 PM CDT Office Visit [facility] - [address], [facility] [address] [place] [phone] Matt Armstrong MD [address] [place] [address] [place] [phone] Spontaneous dissection of coronary artery (Primary [...] Exercise - Works out on a Max Machine Heddle Cleaner 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 Also does light weights and stretch bands. Takes her time, but whole workout takes up to 2.5 hours. Heartburn worse despite no ASA frequently. No bowel or bladder troubles. Menses are irregular, lessheavy but more persistent - Chair Lift Operator follow-up planned. Comprehensive system review is [...] file Gets together: Not on file Attends bapt[employer] service: Not on file Active member of [...] born in 2004. 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 Family History Problem [...] 9. Taking Spironolactone at high dose per Construction Rigger for hair loss and scalp yeast. 10. [...] in 12 mo. Matt Armstrong III, MD, [facility] [email or web address] documented in this encounter Plan of Treatment [...] chemistry documented in this encounter Care Teams Clinical Administrative Coordinator Relationship Specialty Start Date End Date Tristin Ghotra MD [address] [place] [address] [address] [place] [phone] PCP - General 04/04/12 documented as of this encounter
--- OUTSIDE RECORDS SUMMARY | 2024-03-10 02:11 | XMS_ITS | Encounter Summary ---
Author Organization [facility] Address [address] [place] [address] Care Team Providers Care Coffee Brewer Name Role Phone Tristin Ghotra MD Primary Care Provider [phone] Reason for Visit * Reason Comments Follow-up Encounter Details Date Type Department Care Team (Late Contact Info) Description 04/10/2018 12:30 PM BLOOD DONOR UNIT ASSISTANT Office Visit [facility] - [address], [facility] [address] [place] [phone] Matt Armstrong MD [address] [place] [address] [place] [address] Spontaneous dissection of coronary artery (Primary Dx); Essential hypertension; Elevated LFTs; History of [place] (myocardial infarction); S/P coronary artery stent placement; [...] Comments Blood Pressure 119/82 04/10/2018 12:28 PM BLOOD DONOR UNIT ASSISTANT Pulse 61 04/10/2018 12:28 PM BLOOD DONOR UNIT ASSISTANT Temperature - - Respiratory Rate - - Oxygen Saturation 97% 04/10/2018 12:28 PM BLOOD DONOR UNIT ASSISTANT Inhaled Oxygen Concentration - - Weight 70.3 kg (155 lb) 04/10/2018 12:28 PM BLOOD DONOR UNIT ASSISTANT Height 175.3 cm (5' 9 ) 04/10/2018 12:28 PM BLOOD DONOR UNIT ASSISTANT Body Mass Index 22.89 04/10/2018 12:28 PM BLOOD DONOR UNIT ASSISTANT documented in this encounter Progress Notes * Roxanne Epperson - 04/10/2018 12:28 PM CST 10 week f/u Weight same as last OV Systolic BP usually upper 130s No recent syncope/presyncope D DONOR UNIT ASSISTANT * Matt Armstrong MD - 03/03/2018 9:19 AM CST Images from the original note were not included. Chief Complaint Patient presents with ??? Follow-up History of Present Illness Paola Mckeon is a 43 y.o. female, who follows routinely for HTN, prior near syncope and prior [place] and stenting due to spontaneous coronary dissection [...] 09/06/2017 Priority: Not Prioritized ??? History of [place] (myocardial infarction) 09/06/2017 Priority: Not Prioritized Echo [...] born in 2003. 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 Family History Problem [...] artery Essential hypertension Elevated LFTs History of [place] (myocardial infarction) S/P coronary artery stent placement [...] agrees to check back in with her Leakage Tester. 11. Routine f/u in 6 mo. Matt Armstrong III, MD, [facility] [email or web address] D DONOR UNIT ASSISTANT documented in this encounter Plan of Treatment Not on file documented as of this encounter Visit Diagnoses Diagnosis Spontaneous dissection of coronary artery- Primary Essential hypertension Elevated LFTs Other abnormal blood chemistry History of [place] (myocardial infarction) Old myocardial infarction S/P coronary artery stent placement Postsurgical percutaneous transluminal coronary angioplasty status History of near syncope Personal history of other specified diseases documented in this encounter Care Teams Coffee Brewer Relationship Specialty Start Date End Date Tristin Ghotra MD [address] [place] [address] [address] [place] [address] PCP - General 04/04/12 documented as of this encounter
--- OUTSIDE RECORDS SUMMARY | 2024-03-10 02:11 | XMS_ITS | Encounter Summary ---
Author Organization [facility] Address [address] [place] [address] Care Team Providers Care Bottle Inspector Name Role Phone Tristin Ghotra MD Primary Care Provider [phone] Reason for Visit * Reason Onset Date Comments Results 04/11/2018 Sleep study Encounter Details Date Type Department Care Team (Late st Contact Info) Description 04/11/2018 Telephone [facility] - [address], [facility] [address] [place] [phone] Matt Armstrong MD [address] [place] [address] Results (Sleep study) Social History Tobacco [...] was pleased and thanked me for calling. CUTTER documented in this encounter Plan of Treatment Not on file documented as of this encounter Visit Diagnoses Not on filedocumented in this encounter Care Teams Bottle Inspector Relationship Specialty Start Date End Date Tristin Ghotra MD [address] [facility] [address] [place] [address] PCP - General 04/04/12 documented as of this encounter
--- OUTSIDE RECORDS SUMMARY | 2024-03-10 02:11 | XMS_ITS | Encounter Summary ---
Author Organization [facility] Address [address] [facility] [place] [address] Care Team Providers Care Heel Seat Laster Name Role Phone Tristin Ghotra MD Primary Care Provider [phone] Encounter Details Date Type Department Care Team (Late st Contact Info) Description 05/07/2018 Orders Only [facility] - [facility] [address], [place] [address] [place] [address] ProviderYahir MD Social History Tobacco [...] on filedocumented in this encounter Care Teams Heel Seat Laster Relationship Specialty Start Date End Date Tristin Ghotra MD [address] [place] [address] [address] [address] [place] [address] PCP - General 04/04/12 documented as of this encounter
--- OUTSIDE RECORDS SUMMARY | 2024-03-10 02:11 | XMS_ITS | Encounter Summary ---
Author Organization [facility] Address [address] [place] [address] Care Team Providers Care Restorative Aide Name Role Phone Tristin Ghotra MD Primary Care Provider [phone] Reason for Visit * Reason Comments Follow-up Encounter Details Date Type Department Care Team (Late Contact Info) Description 10/09/2018 12:15 PM CDT Office [facility] - [address], [facility] [address] [place] [phone] Matt Armstrong MD [address] [place] [address] [place] [address] Spontaneous dissection of coronary artery (Primary Dx); Essential hypertension; S/P coronary artery stent placement; History of [place] (myocardial infarction); Insomnia, unspecified type; Elevated LFTs; [...] troubles. Menses are regular but heavy - Manufacturing Sr Engineer has advised a diagnostic study. Comprehensive system review is otherwise negative for constitutional, HENT, eyes, neck, musculoskeletal, derm, neuro, cardiovascular, pulmonary, extremities, vascular, endocrine, GI, . Patient Active Problem List Diagnosis Date Noted ??? Elevated LFTs 09/06/2017 Priority: Not Prioritized ??? History of [place] (myocardial infarction) 09/06/2017 Priority: Not Prioritized Echo [...] file Gets together: Not on file Attends sabianism service: Not on file Active member of [...] born in 2003. 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 Family History Problem [...] S/P coronary artery stent placement History of [place] (myocardial infarction) Insomnia, unspecified type Elevated LFTs [...] 6. Taking Spironolactone at high dose per Channel Cementer Insole Machine for hair loss and scalp yeast. 7. [...] in 6 mo. Matt Armstrong III, MD, [facility] [email or web address] * Roxanne Epperson - 10/09/2018 12:06 PM [...] percutaneous transluminal coronary angioplasty status History of [place] (myocardial infarction) Old myocardial infarction Insomnia, unspecified type Elevated LFTs Other abnormal blood chemistry History of near syncope Personal history of other specified diseases documented in this encounter Care Teams Restorative Aide Relationship Specialty Start Date End Date Tristin Ghotra MD [address] [place] [address] 140 [place] [address] PCP - General 04/04/12 documented as of this encounter
--- OUTSIDE RECORDS SUMMARY | 2024-03-10 02:11 | XMS_ITS | Encounter Summary ---
Author Organization [facility] Address [address] [place] [address] Care Team Providers Care Brush Maker Machine Name Role Phone Tristin Ghotra MD Primary Care Provider [phone] Reason for Visit * Reason Onset Date Comments Consent 05/27/2019 Pt. voiced under standing of TELEmed and gave verbal consent. Encounter Details Date Type Department Care Team (Late st Contact Info) Description 05/27/2019 Telephone [facility] - [address], [facility] [address] [place] [address] Matt Armstrong MD [address] [place] [address] Consent (Pt. voiced understanding of TELEmed [...] on filedocumented in this encounter Care Teams Brush Maker Machine Relationship Specialty Start Date End Date Tristin Ghotra MD [address] [place] [address] [address] [place] [phone] PCP - General 04/04/12 documented as of this encounter
--- OUTSIDE RECORDS SUMMARY | 2024-03-10 02:11 | XMS_ITS | Encounter Summary ---
Author Organization [facility] Address [address] [facility] [place] [address] Care Team Providers Care Production Team Member Name Role Phone Tristin Ghotra MD Primary Care Provider [phone] Reason for Visit * Reason Onset Date Comments Update 10/02/2017 Blood Pressure Encounter Details Date Type Department Care Team (Late st Contact Info) Description 10/02/2017 Telephone [facility] - [address], [facility] [address] [place] [address] Matt Armstrong MD [address] [place] [address] Update (Blood Pressure) Social History Tobacco [...] filedocumented in this encounter Care Teams Production Team Member Relationship Specialty Start Date End Date Tristin Ghotra MD [address] [place] [address] 140 [place] [address] PCP - General 04/04/12 documented as of this encounter
--- OUTSIDE RECORDS SUMMARY | 2024-03-10 02:11 | XMS_ITS | Encounter Summary ---
Author Organization [facility] Address [address] [place] [address] Care Team Providers Care Collator Name Role Phone Tristin Ghotra MD Primary Care Provider [phone] Reason for Visit * Reason Comments Follow-up Encounter Details Date Type Department Care Team (Late st Contact Info) Description 05/30/2019 12:00 PM CDT Video Visit [facility] - [address], [facility] [address] [place] [phone] Matt Armstrong MD [address] [place] [address] [place] [address] Spontaneous dissection of coronary artery ; Essential hypertension; S/P coronary artery stent placement; History of near syncope; History of [place] (myocardial infarction); Elevated LFTs Social History Tobacco [...] consent for today's telehealth visit supported by ToryCelsion secure platform. Weight up 1 lb since [...] Exercise - Works out on a Max [place] the last 3 months. She does not like it. Does 30 min 4d/week. No bowel or bladder troubles. Menses are regular but heavy - Transverse Abdominal Muscle Surgeon has advised a diagnostic study. Comprehensive system review is otherwise negative for constitutional, HENT, eyes, neck, musculoskeletal, derm, neuro, cardiovascular, pulmonary, extremities, vascular, endocrine, GI, . Patient Active Problem List Diagnosis Date Noted ??? Elevated LFTs 09/06/2017 Priority: Not Prioritized ??? History of [place] (myocardial infarction) 09/06/2017 Priority: Not Prioritized Echo [...] file Gets together: Not on file Attends mandaeism service: Not on file Active member of [...] born in 2003. 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 Family History Problem [...] placement History of near syncope History of [place] (myocardial infarction) Elevated LFTs 1. Spontaneous Coronary [...] 10. Taking Spironolactone at high dose per Dean for hair loss and scalp yeast. 11. [...] in 6 mo. Matt Armstrong III, MD, [facility] [email or web address] * Roxanne Epperson - 05/30/2019 11:27 AM [...] history of other specified diseases History of [place] (myocardial infarction) Old myocardial infarction Elevated LFTs Other abnormal blood chemistry documented in this encounter Care Teams Collator Relationship Specialty Start Date End Date Tristin Ghotra MD [address] [place] [address] 140 [place] [address] PCP - General 04/04/12 documented as of this encounter
--- OUTSIDE RECORDS SUMMARY | 2024-03-10 02:11 | XMS_ITS | Patient Health Summary ---
Author Organization [facility] Address [address] [place] [address] Care Team Providers Care Graphics Production Specialist Name Role Phone Tristin Ghotra MD Primary Care Provider [phone] Note from [facility],non-owned Affiliates and Associated Physician Practices is amultiple site organization consisting of ambulatory clinics and hospital sitesin [place], [place], [place] and [place]. This disclosure is being madepursuant to the Care Everywhere program and may not contain all information available regarding this patient. Last updated 17.[facility] Allergies No known active allergies Medications [...] Diagnosed Date Elevated LFTs 09/06/2017 History of [place] (myocardial infarction) 09/06/2017 Spontaneous dissection of coronary [...] No Growth of Methicillin Resistant Staphylococcus aureus. [facility] Nasopharyngeal 09/19/2013 5: 20 PM CDT 09/19/2013 9:27 PM CDT Narrative [facility] - 09/21/2013 11:19 AM CDT AndersonSpecimen#[id number] Joselito Loc/Rm/Bed: ICU/ICU/01 Historical Provider LAB - MICROBIOLOG Y ORDERABLES Performing Organization Address City/State/[facility] Co de Phone Number [facility] [address] [phone] * CARDIAC CATHETERIZATION, LEFT (09/19/2013) Provider Unknown GENERIC SURGICAL HIS TORY Care Teams Graphics Production Specialist Relationship Specialty Start Date End Date Tristin Ghotra MD [address] [place] [address] [address] [place] [address] PCP - General 04/04/12
--- OUTSIDE RECORDS SUMMARY | 2024-03-10 02:11 | XMS_ITS | Encounter Summary ---
Author Organization [facility] Address [address] [place] [address] Care Team Providers Care Skip Tender Name Role Phone Tristin Ghotra MD Primary Care Provider [phone] Encounter Details Date Type Department Care Team (Late st Contact Info) Description 04/19/2012 Hospital Outpatient Visit Historic [facility] DEFAULT [address] [place] [address] Caro Pa MD [facility] [address] [place] [address] Social History Tobacco Use Types Packs/Day Years Used Date Smoking Tobacco: Never Assessed Sex and Gender Information Value Date Recorded Sex Assigned at Not on file Gender Identity Not on file Sexual Orientation Not on file documented as of this encounter Plan of Treatment Not on file documented as of this encounter Visit Diagnoses Not on filedocumented in this encounter Care Teams Skip Tender Relationship Specialty Start Date End Date Tristin Ghotra MD [address] [place] [address] [address] [place] [address] PCP - General 04/04/12 documented as of this encounter
--- OUTSIDE RECORDS SUMMARY | 2024-03-10 02:11 | XMS_ITS | Encounter Summary ---
Author Organization [facility] Address [address] [facility] [place] [address] Care Team Providers Care Fire Management Officer Name Role Phone Tristin Ghotra MD Primary Care Provider [phone] Encounter Details Date Type Department Care Team [...] on filedocumented in this encounter Care Teams Fire Management Officer Relationship Specialty Start Date End Date Tristin Ghotra MD [address] [place] [address] [address] [place] [address] PCP - General 04/04/12 documented as of this encounter
--- OUTSIDE RECORDS SUMMARY | 2024-03-10 02:11 | XMS_ITS | Encounter Summary ---
Author Organization [facility] Address [address] [facility] [place] [address] Care Team Providers Care Bushing And Broach Operator Name Role Phone Tristin Ghotra MD Primary Care Provider [phone] Reason for Visit * Reason Onset Date Comments Erroneous encounter-disregard 11/21/2018 MEDICATION REFILL 11/21/2018 Encounter Details Date Type Department Care Team (Late st Contact Info) Description 11/21/2018 Refill [facility] - [address], [facility] [address] [place] [phone] Matt Armstrong MD [address] [place] [address] Erroneous encounter-disregard; MEDICATION REFILL Social History [...] on filedocumented in this encounter Care Teams Bushing And Broach Operator Relationship Specialty Start Date End Date Tristin Ghotra MD [address] [facility] [address] [place] [address] PCP - General 04/04/12 documented as of this encounter
--- OUTSIDE RECORDS SUMMARY | 2024-03-10 02:11 | XMS_ITS | Encounter Summary ---
Author Organization [facility] Address [address] [place] [address] Care Team Providers Care Recreational Therapy Aide Name Role Phone Tristin Ghotra MD Primary Care Provider [phone] Reason for Visit * Reason Comments Establish Care Encounter Details Date Type Department Care Team (Late st Contact Info) Description 09/06/2017 8:30 AM CDT Office Visit [facility] - [address], [facility] [address] [place] [phone] Matt Armstrong MD [address] [place] [address] [place] [address] Spontaneous dissection of coronary artery (Primary Dx); Essential hypertension; History of HI (myocardial infarction); Elevated LFTs; S/P coronary artery [...] about eight months ago - went to [facility] ([place], [place]) ER * Matt Armstrong MD - [...] nausea. Went to , then promptly to [facility] where she was told she had a [...] and jaundice. Sees Dr. Hager (GI) in [place] and [place] (GI). Several liver biopsies have been inconclusive. Denies recent itching or jaundice. States bowels lately normal. But has abd bloating immediately after eating or drinking. Has beenRx'd an inhaler, but she has not used it. PFTs were thought OK. Has some increased flow lately w/ menses and planning Lung Splitter visit soon. Otherwise, constitutional, HENT/neck, eyes, endocrine, CV, pulmonary, GI, , neuro, derm, heme, MSK, extremities are all negative. Patient Active Problem List Diagnosis Date Noted ??? Elevated LFTs 09/06/2017 Priority: Not Prioritized ??? History of HI (myocardial infarction) 09/06/2017 Priority: Not Prioritized ??? [...] of coronary artery Essential hypertension History of HI (myocardial infarction) Elevated LFTs S/P coronary artery [...] especially as a woman who ishistorically an pot reliner. She agrees to get back to moderate [...] angina, and has a known normal EF post-HI, no B-dylan is very reasonable. 10. Continue Ramipril. She is aware of precautions and prefers to continue it. She agreesto stop Ramipril immediately should she possibly be . 11. She will get a BP cuff and keep a home log. Numbers to us in a week. 12. Will request admission records from [place] and stenting admission. 13. Will attempt to find latest labs. 14. Spell of near passing out in early 2018 sounds vagal, as had been previously suggested to her. I advised of physiology, common occurrence, avoidance tactics and maneuvers. Stay well hydrated. 15. She agrees to check back in with her Operating Room Registered Nurse. 16. Routine f/u with us in 6 weeks, or anytime sooner with concerns. Matt Armstrong III, MD, [facility] documented in this encounter Plan of Treatment Not on file documented as of this encounter Visit Diagnoses Diagnosis Spontaneous dissection of coronary artery- Primary Essential hypertension History of HI (myocardial infarction) Old myocardial infarction Elevated LFTs Other abnormal blood chemistry S/P coronary artery stent placement Postsurgical percutaneous transluminal coronary angioplasty status History of near syncope Personal history of other specified diseases documented in this encounter Care Teams Recreational Therapy Aide Relationship Specialty Start Date End Date Tristin Ghotra MD [address] [place] [address] 140 [place] [address] PCP - General 04/04/12 documented as of this encounter
--- OUTSIDE RECORDS SUMMARY | 2024-03-10 02:11 | XMS_ITS | Encounter Summary ---
Author Organization [facility] Address [address] [facility] [place] [address] Care Team Providers Care Civil Geotechnical Engineer Name Role Phone Tristin Ghotra MD Primary Care Provider [phone] Encounter Details Date Type Department Care Team [...] on filedocumented in this encounter Care Teams Civil Geotechnical Engineer Relationship Specialty Start Date End Date Tristin Ghotra MD [address] [place] [address] 140 [place] [address] PCP - General 04/04/12 documented as of this encounter
--- OUTSIDE RECORDS SUMMARY | 2024-03-10 02:14 | XMS_ITS | Encounter Summary ---
Author Organization [facility] Address [address] [place] [address]. [place], [place] [address] [place] [address] Care Team Providers Care Diesel Engine Fitter Name Role Phone Tristin Ghotra MD Primary Care Provider [phone] Encounter Details Date Type Department Care Team [...] on filedocumented in this encounter Care Teams Diesel Engine Fitter Relationship Specialty Start Date End Date Tristin Ghotra MD [address] [facility] [address] [place] [address] PCP - General 02/18/13 documented as of this encounter
--- OUTSIDE RECORDS SUMMARY | 2024-03-10 02:14 | XMS_ITS | Encounter Summary ---
Author Organization [facility] Address [address] [place] [address]. [place], [place] [address] [place] [address] Care Team Providers Care Client Business Manager Name Role Phone Tristin De Leon MD Primary Care Provider [phone] Reason for Referral * Imaging (Routine) - Closed Specialty Diagnoses / Procedures Referred By George cr Referred To Contact RADIOLOGY Diagnoses Abnormal levels of other serum enzymes Procedures US ABD LIMITED Tristin De Leon MD [address] [facility] [place] [address] [place] [address] Phone: tel: fax: Referral ID Status Reason Start Date Expiration Date Visits Re quested Visits Authorized [id number] Closed 04/07/2023 04/07/2024 1 1 Reason for Visit * Imaging (Routine) - Closed Specialty Diagnoses / Procedures Referred By George cr Referred To Contact RADIOLOGY Diagnoses Abnormal levels of other serum enzymes Procedures US ABD LIMITED Tristin De Leon MD [address] [place] [address] Phone: tel: fax: Referral ID Status Reason Start Date Expiration Date Visits Re quested Visits Authorized [id number] Closed 04/07/2023 04/07/2024 1 1 Encounter Details Date Type Department Care Team (Latest Contact Info) Description 05/26/2023 9:58 AM CDT - 05/26/2023 11:59 PM CDT Hospital Encounter [facility] [address] [place] [address] Tristin De Leon MD [address] [place] [address] [place] [address] Discharge Disposition: Home or Self [...] enzymes documented in this encounter Care Teams Client Business Manager Relationship Specialty Start Date End Date Tristin De Leon MD [address] [place] [address] 100 [place] [phone] PCP - General 02/18/13 documented as of this encounter
--- OUTSIDE RECORDS SUMMARY | 2024-03-10 02:14 | XMS_ITS | Clinical Summary ---
Author Organization [facility] Address [address] [place] [address]. [place], [place] [address] [place] [address] Care Team Providers Care Broadcast Director Operations Name Role Phone Tristin Ghotra MD Primary Care Provider [phone] Medications No known medications Social History Tobacco [...] patient's age to complete this topic Insurance [facility] Care Teams Broadcast Director Operations Relationship Specialty Start Date End Date Tristin Ghotra MD [address] [facility] [address] [place] [address] PCP - General 02/18/13
--- OUTSIDE RECORDS SUMMARY | 2024-03-10 02:14 | XMS_ITS | Encounter Summary ---
Author Organization [facility] Address [address] [place] [address]. [place], [place] [address] [place] [address] Care Team Providers Care Riveter Name Role Phone Tristin Ghotra MD Primary Care Provider [phone] Encounter Details Date Type Department Care Team [...] on filedocumented in this encounter Care Teams Riveter Relationship Specialty Start Date End Date Tristin Ghotra MD [address] [place] [address] [place] [address] PCP - General 02/18/13 documented as of this encounter
--- OUTSIDE RECORDS SUMMARY | 2024-03-10 02:14 | XMS_ITS | Encounter Summary ---
Author Organization [facility] Address [address] [place] [address]. [place], [place] [address] [place] [address] Care Team Providers Care Airplane Mechanic Name Role Phone Tristin Ghotra MD Primary Care Provider [phone] Encounter Details Date Type Department Care Team [...] on filedocumented in this encounter Care Teams Airplane Mechanic Relationship Specialty Start Date End Date Tristin Ghotra MD [address] [place] [address] [place] [address] PCP - General 02/18/13 documented as of this encounter
--- OUTSIDE RECORDS SUMMARY | 2024-03-10 02:14 | XMS_ITS | Encounter Summary ---
Author Organization [facility] Address [address] [place] [address]. [place], [place] [address] [place] [address] Care Team Providers Care Employee Benefits Manager Name Role Phone Tristin Ghotra MD Primary Care Provider [phone] Reason for Referral * Imaging (Routine) - Closed Specialty Diagnoses / Procedures Referred By Contac t Referred To Contact RADIOLOGY Diagnoses Lymphadenopathy Shortness of breath Night sweats Procedures CT CHEST W CON CT CHEST W Bryant Hernandez MD [address] [place] [address] Phone: tel: fax: Referral ID Status Reason Start Date Expiration Date Visits Re quested Visits Authorized [id number] Closed 08/19/2020 11/17/2020 1 1 * Imaging (Routine) - Closed Specialty Diagnoses / Procedures Referred By Contac t Referred To Contact RADIOLOGY Diagnoses Lymphadenopathy Shortness of breath Night sweats Procedures CT SOFT TISSUE NECK W CON CT SOFT TISSUE NECK W CON Bryant Ochoa MD [address] [place] [address] Phone: tel: fax: Referral ID Status Reason Start Date Expiration Date Visits Re quested Visits Authorized [id number] Closed 08/19/2020 11/17/2020 1 1 Reason for Visit * Imaging (Routine) - Closed Specialty Diagnoses / Procedures Referred By Contac t Referred To Contact RADIOLOGY Diagnoses Lymphadenopathy Shortness of breath Night sweats Procedures CT SOFT TISSUE NECK W CON CT SOFT TISSUE NECK W CON Bryant Ochoa MD [address] [place] [address] Phone: tel: fax: Referral ID Status Reason Start Date Expiration Date Visits Re quested Visits Authorized [id number] Closed 08/19/2020 11/17/2020 1 1 Encounter Details Date Type Department Care Team (Latest Contact Info) Description 08/21/2020 3:06 PM CDT - 08/21/2020 11:59 PM CDT Hospital Encounter [facility] [address] [facility] [address] [place], [place] [id number] Bryant Ochoa MD [address] [place] [address] Discharge Disposition: Home or Self Care [...] Arm documented in this encounter Care Teams Employee Benefits Manager Relationship Specialty Start Date End Date Tristin Ghotra MD 331 [facility] 100 [place] [address] PCP - General 02/18/13 documented as of this encounter
--- OUTSIDE RECORDS SUMMARY | 2024-03-10 02:14 | XMS_ITS | Encounter Summary ---
Author Organization [facility] Address [address] [place] [address]. [place], [place] [address] [place] [address] Care Team Providers Care Product Technology Scientist Name Role Phone Tristin Ghotra MD Primary Care Provider [phone] Encounter Details Date Type Department Care Team (Late st Contact Info) Description 02/18/2013 Abstract [facility] [address] [facility] [place] [address] Humphrey Mcgraw MD [address] [facility] [place] [address] Social History Tobacco Use Types Packs/Day Years [...] loss documented in this encounter Care Teams Product Technology Scientist Relationship Specialty Start Date End Date Tristin Ghotra MD [address] [place] [address] PCP - General 02/18/13 documented as of this encounter
--- OUTSIDE RECORDS SUMMARY | 2024-03-10 02:14 | XMS_ITS | Encounter Summary ---
Author Organization [facility] Address [address] [place] [address]. [place], [place] [address] [place] [address] Care Team Providers Care City Councilman Name Role Phone Tristin Ghotra MD Primary Care Provider [phone] Encounter Details Date Type Department Care Team [...] on filedocumented in this encounter Care Teams City Councilman Relationship Specialty Start Date End Date Tristin Ghotra MD [address] [facility] 100 [place] [address] PCP - General 02/18/13 documented as of this encounter
--- OUTSIDE RECORDS SUMMARY | 2024-03-10 02:14 | XMS_ITS | Encounter Summary ---
Author Organization [facility] Address [address] [place] [address]. [place], [place] [address] [place] [address] Care Team Providers Care Bar Helper Name Role Phone Tristin Ghotra MD Primary Care Provider [phone] Reason for Referral * Imaging (Routine) - Closed Specialty Diagnoses / Procedures Referred By Contac t Referred To Contact RADIOLOGY Diagnoses Neck mass Procedures US SOFT TISS HEAD OR NECK Bryant Ochoa MD [address] [place] [address] Phone: tel: fax: Referral ID Status Reason Start Date Expiration Date Visits Re quested Visits Authorized [id number] Closed 08/09/2021 09/09/2022 1 1 Reason for Visit * Imaging (Routine) - Closed Specialty Diagnoses / Procedures Referred By Contac t Referred To Contact RADIOLOGY Diagnoses Neck mass Procedures US SOFT TISS HEAD OR NECK Bryant Ochoa MD [address] [place] [address] Phone: tel: fax: Referral ID Status Reason Start Date Expiration Date Visits Re quested Visits Authorized [id number] Closed 08/09/2021 09/09/2022 1 1 Encounter Details Date Type Department Care Team (Latest Contact Info) Description 08/20/2021 3:20 PM CDT - 08/20/2021 11:59 PM CDT Hospital Encounter [facility] [address] Bryant Ochoa MD [facility] [address] [id number] Discharge Disposition: Home or Self Care (Routine [...] neck documented in this encounter Care Teams Bar Helper Relationship Specialty Start Date End Date Tristin Ghotra MD [address] [facility] [address] [place] [address] PCP - General 02/18/13 documented as of this encounter
--- OUTSIDE RECORDS SUMMARY | 2024-03-10 02:14 | XMS_ITS | Encounter Summary ---
Author Organization [facility] Address [address] [place] [address]. [place], [place] [address] [place] [address] Care Team Providers Care Institute Director Name Role Phone Tristin De Leon MD Primary Care Provider [phone] Reason for Referral * Imaging (Routine) - Closed Specialty Diagnoses / Procedures Referred By George cr Referred To Contact RADIOLOGY Diagnoses Microscopic hematuria Other microscopic hematuria Procedures CT ABD+PEL WWO CON Tristin De Leon MD [address] [place] [address] Phone: tel: fax: Referral ID Status Reason Start Date Expiration Date Visits Re quested Visits Authorized [id number] Closed 05/15/2023 11/11/2023 1 1 Reason for Visit * Imaging (Routine) - Closed Specialty Diagnoses / Procedures Referred By Contsavita t Referred To Contact RADIOLOGY Diagnoses Microscopic hematuria Other microscopic hematuria Procedures CT ABD+PEL WWO CON Tristin De Leon MD [address] [place] [address] Phone: tel: fax: Referral ID Status Reason Start Date Expiration Date Visits Re quested Visits Authorized [id number] Closed 05/15/2023 11/11/2023 1 1 Encounter Details Date Type Department Care Team (Latest Contact Info) Description 05/20/2023 2:02 PM CDT - 05/20/2023 11:59 PM CDT Hospital Encounter [facility] [address] [place] [address] Tristin De Leon MD 331 [facility] [address] [place] [address] Discharge Disposition: Home or Self [...] Arm documented in this encounter Care Teams Institute Director Relationship Specialty Start Date End Date Tristin De Leon MD [address] [facility] [address] [place] [address] PCP - General 02/18/13 documented as of this encounter
--- OUTSIDE RECORDS SUMMARY | 2024-03-10 02:17 | XMS_ITS | Encounter Summary ---
Author Organization [facility] Address [address] [place] [address] Care Team Providers Care Dehydrogenation Converter Operator Name Role Phone Tristin Ghotra MD Primary Care Provider [phone] Encounter Details Date Type Department Care Team (Late st Contact Info) Description 12/27/2018 2:45 PM DAYCARE TEACHER Hospital Encounter [facility] Ahsan [address] MD [address] [facility] [address] [place] [address] Social History Tobacco Use Types Packs/Day Years Used Date Smoking Tobacco: Never Alcohol Use Standard Drinks/Week Comments Yes 0 (1 standard drink = 0.6 oz pur e alcohol) Comments Unknown Sex and Gender Information Value Date Recorded Sex Assigned at Not on file Legal Sex Female 3:22 AM DAYCARE TEACHER Gender Identity Female 06/27/2022 9:35 PM [...] Comments GENERAL RADIOLOGY REPORT 12/28/2018 12:00 AM DAYCARE TEACHER SCREENING MAMMOGRAM BILATERAL W NADIR 12/27/2018 2:46 PM DAYCARE TEACHER documented in this encounter Results * GENERAL RADIOLOGY REPORT (12/28/2018 12:00 AM DAYCARE TEACHER) Anatomical Region Laterality Modality Radiographic Nikkie ging Narrative 12/28/2018 12:00 AM DAYCARE TEACHER Ordered by an unspecified provider. us Historical Provider MD ALLEN XR PROCEDURES Final R esult * Screening Mammogram Bilateral W Nadir (12/27/2018 2:46 PM DAYCARE TEACHER) Anatomical Region Laterality Modality Breast Bilateral Mammography 12/27/2018 3:37 PM DAYCARE TEACHER Narrative 12/28/2018 10:58 AM DAYCARE TEACHER Patient Name: RUDI MCKEON V ?Ordering Dr: Ahsan Street ?? D.O.B: 1975 ? Exam Date: 12/27/18 ?? 1446 ?? Age: 43 ?Sex: Female ? MR#: [id number] ?? Loc: ? RADIOLOGY REPORT ?? Order #[id number] ?? [facility] ? Breanna Bilat [...] age 41, based on guidelines of the [place] [employer] ?? [employer] (ACR Practice Parameter for the Performance of Screening and ?? Diagnostic Mammography) and [place] and ?? Gynecologists. For women with an elevated risk of breast cancer, please refer ?? to the ACR Practice Parameter for specific screening recommendations. ? The patient will be entered into a reminder system with a target due date of 1 ?? year for her next screening exam. ? Electronically signed by: ?Sai Marcum M.D. ? ab/penrad:12/28/2018 10:58:37 ? Cnc Maintenance Technician: Kisha DICKERSON (Vidhi)(Caro), [facility] ?? letter sent: Normal Exam ? Reading location: ?? BI-RADS: 2 Benign ? REPORT ELECTRONICALLY SIGNED IN OTHER VENDOR SYSTEM ?? Resulting Agency Comment O Procedure Note Sai Marcum MD - 12/28/2018 Patient Name: MELINDARUDI Dr: Ahsan Street D.O.B: 1975 Exam Date: 12/27/18 1446 Age: 43 Sex: Female MR#: [id number] Loc: RADIOLOGY REPORT Order #[id number] [facility] Breanna Bilat Screening 3D Signed [...] age 41, based on guidelines of the [place] (ACR Practice Parameter for the Performance of Screening and Diagnostic Mammography) and [place]. For women with an elevated risk of breast cancer, pleaserefer to the ACR Practice Parameter for specific screening recommendations. The patient will be entered into a reminder system with a target due dateof 1 year for her next screening exam. Electronically signed by: Sai lyons/trish:12/28/2018 10:58:37 Cnc Maintenance Technician: Kisha Dinh)(Caro), [facility] letter sent: Normal Exam Reading location: BI-RADS: 2 Benign REPORT ELECTRONICALLY SIGNED IN OTHER VENDOR SYSTEM us Ahsan Street MD IMG MAMMO PROCEDURES Final R esult documented in this encounter Visit Diagnoses Not on filedocumented in this encounter Care Teams Dehydrogenation Converter Operator Relationship Specialty Start Date End Date Tristin Ghotra MD [address] [facility] 100 [place] [address] PCP - General 12/07/18 documented as of this encounter
--- OUTSIDE RECORDS SUMMARY | 2024-03-10 02:17 | XMS_ITS | Encounter Summary ---
Author Organization [facility] Healthcare Address [address] [place] [address] Care Team Providers Care Accounting Intern Name Role Phone Tristin Ghotra MD Primary Care Provider [phone] Encounter Details Date Type Department Care Team (Latest Contact Info) Description 10/30/2013 9:08 AM CDT Hospital Encounter [facility] Edgar Hager MD [address] [place] [address] Other specified abnormal findings of blood chemistry Social History Tobacco Use Types Packs/Day Years Used Date Smoking Tobacco: Never Alcohol Use Standard Drinks/Week Comments Yes 0 (1 standard drink = 0.6 oz pur e alcohol) Comments Unknown Sex and Gender Information Value Date Recorded Sex Assigned at Not on file Legal Sex Female 3:22 AM CONSULTANT ELECTRONICS Gender Identity Female 06/27/2022 9:35 PM CDT [...] - 104 U/L 10/30/2013 9:[address] [facility] HISTORICAL RESULTS 10/30/2013 9:13 AM CDT 10/30/2013 9:15 AM CDT us Edgar Hager MD LAB BLOOD ORDERABLES Final Resu lt [facility] HISTORICAL RESULTS * (ABNORMAL) ALT (10/30/2013 9:13 AM CDT) ALT 94(H) 0 - 33 U/L 10/30/2013 9:[address] [facility] HISTORICAL RESULTS 10/30/2013 9:13 AM CDT 10/30/2013 9:15 AM CDT us Edgar Hager MD LAB BLOOD ORDERABLES Final Resu lt [facility] HISTORICAL RESULTS * (ABNORMAL) AST (10/30/2013 9:13 AM CDT) AST 72(H) 0 - 32 U/L 10/30/2013 9:[address] [facility] HISTORICAL RESULTS 10/30/2013 9:13 AM CDT 10/30/2013 9:15 AM CDT us Edgar Hager MD LAB BLOOD ORDERABLES Final Resu lt [facility] HISTORICAL RESULTS * Bilirubin, total and direct (10/30/2013 9:13 AM CDT) Total Bilirubin 0.6 0.0 - 1.2 mg/dL 10/30/2013 9:[address] [facility] HISTORICAL RESULTS Direct Bilirubin < 0.20 0.00 - 0.25 mg/dL 10/30/2013 9:[address] [facility] HISTORICAL RESULTS 10/30/2013 9:13 AM CDT 10/30/2013 9:15 AM CDT us Edgar Hager MD LAB BLOOD ORDERABLES Final Resu lt Performing Organization Address City/[facility]/ZIP Co de Phone Number [facility] HISTORICAL RESULTS * Albumin (10/30/2013 9:13 AM CDT) Albumin 4.3 3.5 - 5.2 g/dL 10/30/2013 9:[address] [facility] HISTORICAL RESULTS 10/30/2013 9:13 AM CDT 10/30/2013 9:15 AM CDT Edgar Hager MD LAB BLOOD ORDERABLES Final Resu lt [facility] HISTORICAL RESULTS documented in this encounter Visit Diagnoses Diagnosis Other specified abnormal findings of blood chemistry documented in this encounter Care Teams Accounting Intern Relationship Specialty Start Date End Date Tristin Ghotra MD [address] [place] [address] PCP - General 10/11/13 12/06/18 documented as of this encounter
--- OUTSIDE RECORDS SUMMARY | 2024-03-10 02:17 | XMS_ITS | Encounter Summary ---
Author Organization [facility] Address [address] [place] [address] Care Team Providers Care Surveillance Agent Name Role Phone Tristin Ghotra MD Primary Care Provider [phone] Encounter Details Date Type Department Care Team (Late st Contact Info) Description 11/30/2021 1:30 PM CDT Office Visit [facility] Pulmonology [address] [place] [address] Kate Carrasco MD [address] [facility] [address] [place] [address] Mild persistent asthma without complication (Primary Dx); Non-seasonal allergic rhinitis due to other allergic trigger Social History Tobacco Use Types Packs/Day Years Used Date Smoking Tobacco: Never Alcohol Use Standard Drinks/Week Comments Yes 0 (1 standard drink = 0.6 oz pur e alcohol) Comments Unknown Sex and Gender Information Value Date Recorded Sex Assigned at Not on file Legal Sex Female 3:22 AM BASKET PERSON Gender Identity Female 06/27/2022 9:35 PM CDT [...] etoh. No drug use. 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
--- OUTSIDE RECORDS SUMMARY | 2024-03-10 02:17 | XMS_ITS | Encounter Summary ---
Author Organization [facility] Care Team Providers Care Hook And Eye Machine Operator Name Role Phone Tristin Ghotra MD Primary Care Provider [phone] Encounter Details Date Type Department Care Team (Late st Contact Info) Description 05/20/2015 - 05/20/2015 11:59 PM CDT [facility] [address] [place] [address] Social History Tobacco Use Types Packs/Day Years Used Date Smoking Tobacco: Never Alcohol Use Standard Drinks/Week Comments Yes 0 (1 standard drink = 0.6 oz pur e alcohol) Comments Unknown Sex and Gender Information Value Date Recorded Sex Assigned at Not on file Legal Sex Female 3:22 AM MAILER APPRENTICE Gender Identity Female 06/27/2022 9:35 PM [...] on filedocumented in this encounter Care Teams Hook And Eye Machine Operator Relationship Specialty Start Date End Date Tristin Ghotra MD [address] [place] [address] [address] [place] [address] PCP - General 10/11/13 12/06/18 documented as of this encounter
--- OUTSIDE RECORDS SUMMARY | 2024-03-10 02:17 | XMS_ITS | Encounter Summary ---
Author Organization [facility] Healthcare Address [address] [place] [address] Care Team Providers Care Heel Cutter Name Role Phone Tristin Ghotra MD Primary Care Provider Encounter Details Date Type Department Care Team (Latest Contact Info) Description 10/30/2013 7:47 AM CDT Hospital Encounter [facility] Edgar Hager MD [address] [place], [place] [id number] Obstruction of bile duct; Other specified abnormal findings of blood chemistry; Abdominal pain Social History Tobacco Use Types Packs/Day Years Used Date Smoking Tobacco: Never Alcohol Use Standard Drinks/Week Comments Yes 0 (1 standard drink = 0.6 oz pur e alcohol) Comments Unknown Sex and Gender Information Value Date Recorded Sex Assigned at Not on file Legal Sex Female 3:22 AM WIRE STITCHER MACHINE Gender Identity Female 06/27/2022 9:35 PM CDT [...] Grider M.D. AT:[email or web address] 10:58 AM 11:05 AM [facility] [EOD] Narrative 10/30/2013 4:30 PM CDT EXAMINATION: [...] Grider M.D. AT:stefany 10:58 AM 11:05 AM [facility] [EOD] Edgar Hager MD IM MRI PROCEDURES Final Result documented in this encounter Visit Diagnoses Diagnosis Obstruction of bile duct Other specified abnormal findings of blood chemistry Abdominal pain Abdominal pain, unspecified site documented in this encounter Care Teams Heel Cutter Relationship Specialty Start Date End Date Tristin Ghotra MD [address] [place] [phone] PCP - General 10/11/13 12/06/18 documented as of this encounter
--- OUTSIDE RECORDS SUMMARY | 2024-03-10 02:17 | XMS_ITS | Encounter Summary ---
Author Organization [facility] Healthcare Address [address] [place] [address] Care Team Providers Care Technical Operator Name Role Phone Tristin Ghotra MD Primary Care Provider [phone] Encounter Details Date Type Department Care Team (Latest Contact Info) Description 10/09/2013 12:37 PM CDT Hospital Encounter [facility] Edgar Hager MD [address] [place] [address] Obstruction of bile duct Social History Tobacco Use Types Packs/Day Years Used Date Smoking Tobacco: Never Alcohol Use Standard Drinks/Week Comments Yes 0 (1 standard drink = 0.6 oz pur e alcohol) Comments Unknown Sex and Gender Information Value Date Recorded Sex Assigned at Not on file Legal Sex Female 3:22 AM CHIEF SECURITY OFFICER Gender Identity Female 06/27/2022 9:35 PM CDT [...] WBC 4.9 4.6 - 10.2 x10 3/ul RBC 3.72(L) 3.76 - 4.80 x10 6/ul Hemoglobin 12.1 11.0 - 15.0 g/dl 10/09/2013 1:[address] [facility] [employer] HISTORICAL RESULTS Hct 35.2 33.0 - 43.0 % 10/09/2013 1:[address] [facility] [employer] HISTORICAL RESULTS MCV 94.6 80.0 - 97.0 fl 10/09/2013 1:28 PM CDT [facility] [email or web address] HISTORICAL RESULTS MCH 32.5(H) 27.0 - 31.2 pg 10/09/2013 1:[address] [facility] [employer] HISTORICAL RESULTS MCHC 34.4 31.8 - 35.4 g/dl 10/09/2013 1:[address] [facility] [employer] HISTORICAL RESULTS RDW 11.8 11.6 - 14.8 % Plt Count 212 124 - 400 x10 3/ul MPV 11.5(H) 7.4 - 10.4 fl 10/09/2013 1:09 PM CDT 10/09/2013 1:23 PM CDT us Edgar Hager MD LAB BLOOD ORDERABLES Final Resu lt Performing Organization Address [facility] Co de Phone Number [facility] HISTORICAL RESULTS * Lipase (10/09/2013 1:09 PM CDT) Pathologist [facility] Lipase 27 13 - 60 U/L 10/09/2013 1:09 PM CDT 10/09/2013 1:23 PM CDT us Edgar Hager MD LAB BLOOD ORDERABLES Final Resu lt Performing Organization Address [facility] Co de Phone Number [facility] HISTORICAL RESULTS * Amylase (10/09/2013 1:09 PM CDT) Pathologist [facility] Amylase 74 28 - 100 U/L 10/09/2013 1:09 PM CDT 10/09/2013 1:23 PM CDT Edgar Hager MD LAB BLOOD ORDERABLES Final Resu lt Performing Organization Address City/[facility] Co de Phone Number [facility] HISTORICAL RESULTS * (ABNORMAL) Alkaline phosphatase (10/09/2013 1:09 PM CDT) Pathologist [facility] Alkaline Phosphatase 277(H) 35 - 104 U/L 10/09/2013 1:09 PM CDT 10/09/2013 1:23 PM CDT Result [facility] us Edgar Hager MD LAB BLOOD ORDERABLES Final Resu lt Performing Organization Address [facility] Phone Number [facility] HISTORICAL RESULTS * (ABNORMAL) ALT (10/09/2013 1:09 PM CDT) ALT 183(H) 0 - 33 U/L 10/09/2013 1:09 PM CDT 10/09/2013 1:23 PM CDT Edgar Hager MD LAB BLOOD ORDERABLES Final Resu lt Performing Organization Address [facility] Phone Number [facility] HISTORICAL RESULTS * (ABNORMAL) AST (10/09/2013 1:09 PM CDT) AST 65(H) 0 - 32 U/L 10/09/2013 1:09 PM CDT 10/09/2013 1:23 PM CDT Result [facility] Edgar Hager MD LAB BLOOD ORDERABLES Final Resu lt Performing Organization Address [facility] Phone Number [facility] HISTORICAL RESULTS * Bilirubin, total and direct (10/09/2013 1:09 PM CDT) Total Bilirubin 0.6 0.0 - 1.2 mg/dL Direct Bilirubin < 0.20 0.00 - 0.25 mg/dL 10/09/2013 1:09 PM CDT 10/09/2013 1:23 PM CDT Result [facility] us Edgar Hager MD LAB BLOOD ORDERABLES Final Resu lt Performing Organization Address [facility]/ZIP Co de Phone Number [facility] HISTORICAL RESULTS * Albumin (10/09/2013 1:09 PM CDT) Albumin 4.4 3.5 - 5.2 g/dL 10/09/2013 1:09 PM CDT 10/09/2013 1:23 PM CDT us Edgar Hager MD LAB BLOOD ORDERABLES Final Resu lt Performing Organization Address [facility] Co de Phone Number [facility] HISTORICAL RESULTS documented in this encounter Visit Diagnoses Diagnosis Obstruction of bile duct documented in this encounter Care Teams Technical Operator Relationship Specialty Start Date End Date Tristin Ghotra MD [address] [place] [address] PCP - General 09/27/13 10/10/13 documented as of this encounter
--- OUTSIDE RECORDS SUMMARY | 2024-03-10 02:17 | XMS_ITS | Encounter Summary ---
Author Organization [facility] Address [address] [place] [address] Phone Care Team Providers Care Kiln Firer Name Role Phone Tristin Ghotra MD Primary Care Provider [phone] Reason for Visit * Reason Onset Date Comments Test Results 09/14/2020 Encounter Details Date Type Department Care Team (Late st Contact Info) Description 09/14/2020 Telephone [facility] Otolaryngology [address] [place] [address] Jaclyn Briones Test Results Social History Tobacco Use Types Packs/Day Years Used Date Smoking Tobacco: Never Alcohol Use Standard Drinks/Week Comments Yes 0 (1 standard drink = 0.6 oz pur e alcohol) Comments Unknown Sex and Gender Information Value Date Recorded Sex Assigned at Not on file Legal Sex Female 3:22 AM CONTACT CENTER ENGINEER Gender Identity Female 06/27/2022 9:35 PM [...] on filedocumented in this encounter Care Teams Kiln Firer Relationship Specialty Start Date End Date Tristin Ghotra MD [address] [address] PCP - General 12/07/18 documented as of this encounter
--- OUTSIDE RECORDS SUMMARY | 2024-03-10 02:17 | XMS_ITS | Encounter Summary ---
Author Organization [facility] Healthcare Address [address] [place] [address] Care Team Providers Care Digital Computer Systems Analyst Name Role Phone Tristin Ghotra MD Primary Care Provider [phone] Encounter Details Date Type Department Care Team (Late st Contact Info) Description 12/19/2023 Telephone [facility] Specialty Services [address] [place] [phone] Miscellaneous, Not In File Social History Tobacco Use Types Packs/Day Years Used Date Smoking Tobacco: Never Alcohol Use Standard Drinks/Week Comments Yes 0 (1 standard drink = 0.6 oz pur e alcohol) Comments Unknown Sex and Gender Information Value Date Recorded Sex Assigned at Not on file Legal Sex Female 3:22 AM BIOINFORMATICS TECHNICIAN Gender Identity Female 06/27/2022 9:35 PM CDT Sexual Orientation Not on file documented as of this encounter Miscellaneous Notes * Telephone Encounter - Arpit Nava - 12/19/2023 8:12 AM CDT Contacted referring office requesting labs documented in this encounter Plan of Treatment Not on file documented as of this encounter Visit Diagnoses Not on filedocumented in this encounter Care Teams Digital Computer Systems Analyst Relationship Specialty Start Date End Date Tristin Ghotra MD [address] [place] [address] PCP - General 12/07/18 documented as of this encounter
--- OUTSIDE RECORDS SUMMARY | 2024-03-10 02:17 | XMS_ITS | Referral Summary ---
Author Organization [facility] Address [address] [place] [address] Care Team Providers Care Industrial Sales Engineer Name Role Phone Tristin Ghotra MD Primary Care Provider [phone] Encounters Date Type Department Care Team Description 03/06/2024 Orders Only [facility] Cardiology [address] [place] [address] Cristopher Lipscomb MD 12/19/2023 Telephone [facility] Specialty Services [address] [place] [address] Miscellaneous, Not In File from Last 3 [...] mcg/actuation aerosol inhaler Active inhalational spacing device ([facility]) spacer 1 Device daily 1 each [...] on file Legal Sex Female 3:22 AM STRINGER UP SOLDERING MACHINE Gender Identity Female 06/27/2022 9:35 PM [...] Procedure Name Priority Date/Time Associated Diagnosis Comments CARDIOLOGY DOCUMENT SCAN Routine 03/03/2024 8:40 AM STRINGER UP SOLDERING MACHINE SCREENING MAMMOGRAM BILATERAL W NADIR 12/27/2018 2:46 PM STRINGER UP SOLDERING MACHINE from Last 3 Months or Most Recently Relevant to Health Maintenance Results * Cardiology Document Scan (03/03/2024 8:40 AM STRINGER UP SOLDERING MACHINE) Anatomical Region Laterality Modality Other us Cristopher Lipscomb MD CV CARDIAC SERVICES PROCE AMY Final Result * Screening Mammogram Bilateral W Nadir (12/27/2018 2:46 PM STRINGER UP SOLDERING MACHINE) Anatomical Region Laterality Modality Breast Bilateral Mammography 12/27/2018 3:37 PM STRINGER UP SOLDERING MACHINE Narrative 12/28/2018 10:58 AM STRINGER UP SOLDERING MACHINE Patient Name: RUDI MCKEON V ?Ordering Dr: Ahsan Street ?? D.O.B: 1975 ? Exam Date: 12/27/18 ?? 1446 ?? Age: 43 ?Sex: Female ? MR#: [id number] ?? Loc: ? RADIOLOGY REPORT ?? Order #[id number] ?? [facility] ? Breanna Bilat Screening 3D [...] age 41, based on guidelines of the [employer] [employer] ?? Radiology (ACR Practice Parameter for the Performance of Screening and ?? Diagnostic Mammography) and [place] [employer] of Obstetricians and ?? Gynecologists. For women with an elevated risk of breast cancer, please refer ?? to the ACR Practice Parameter for specific screening recommendations. ? The patient will be entered into a reminder system with a target due date of 1 ?? year for her next screening exam. ? Electronically signed by: ?Sai Marcum M.D. ? ab/penrad:12/28/2018 10:58:37 ? Test Data Developer: Kisha Dinh)(Caro), [facility] ?? letter sent: Normal Exam ? Reading location: ?? BI-RADS: 2 Benign ? REPORT ELECTRONICALLY SIGNED IN OTHER VENDOR SYSTEM ?? Resulting Agency Comment O Procedure Note Sai Marcum MD - 12/28/2018 Patient Name: RUDI MCKEON Dr: Ahsan StreetO.B: 1975 Exam Date: 12/27/18 1446 Age: 43 Sex: Female MR#: [id number] Loc: RADIOLOGY REPORT Order #[id number] [facility] Breanna Bilat Screening 3D Signed [...] age 41, based on guidelines of the [employer] [employer] (ACR Practice Parameter for the Performance of Screening and Diagnostic Mammography) and [place]ians and Gynecologists. For women with an elevated risk of breast cancer, pleaserefer to the ACR Practice Parameter for specific screening recommendations. The patient will be entered into a reminder system with a target due dateof 1 year for her next screening exam. Electronically signed by: Sai Marcum M.D. ab/penrad:12/28/2018 10:58:37 Test Data Developer: Kisha Dinh)(Caro), [facility] letter sent: Normal Exam Reading location: BI-RADS: 2 Benign REPORT ELECTRONICALLY SIGNED IN OTHER VENDOR SYSTEM Ahsan Street MD IMG MAMMO PROCEDURES Final R esult from Last 3 Months or Most Recently Relevant to Health Maintenance Insurance fake company 2.0 OPEN ACCESS fake company 2.0 OPEN ACCESS [employer] OPEN ACCESS Care Teams Industrial Sales Engineer Relationship Specialty Start Date End Date Tristin Ghotra MD [address] [place] [address] PCP - General 12/07/18
--- OUTSIDE RECORDS SUMMARY | 2024-03-10 02:17 | XMS_ITS | Encounter Summary ---
Author Organization [facility] Address [address] [place] [address] Phone Care Team Providers Care Heavy Machinery Assembler Name Role Phone Tristin Ghotra MD Primary Care Provider [phone] Reason for Referral * Consultation (Routine) - Closed Specialty Diagnoses / Procedures Referred By George cr Referred To Contact Otolaryngology Diagnoses Enlarged tonsils Tristin Ghotra MD [address] [place] [address] Phone: tel: fax: [facility] (All Locations) Referral ID Status Reason Start Date Expiration Date V isits Requested Visits Authorized [id number] Closed Specialty Services Required 08/27/2020 09/26/2021 99 99 Question Answer Please select the performing region: [facility] (All Locations) [167] # of visits: 1 Reason for Visit * Reason Comments Enlarged Tonsils * Consultation (Routine) - Closed Specialty Diagnoses / Procedures Referred By George cr Referred To Contact Otolaryngology Diagnoses Enlarged tonsils Tristin Ghotra MD [address] [place] [address] Phone: tel: fax: [facility] (All Locations) Referral ID Status Reason Start Date Expiration Date V isits Requested Visits Authorized [id number] Closed Specialty Services Required 08/27/2020 09/26/2021 99 99 Encounter Details Date Type Department Care Team (Late st Contact Info) Description 09/03/2020 3:30 PM CDT Office Visit [facility] Otolaryngology [address] [place] [address] Salinas Pandya II, MD [address] [place] [address] Enlarged tonsils (Primary Dx); Lymphadenopathy of left cervical region Social History Tobacco Use Types Packs/Day Years Used Date Smoking Tobacco: Never Alcohol Use Standard Drinks/Week Comments Yes 0 (1 standard drink = 0.6 oz pur e alcohol) Comments Unknown Sex and Gender Information Value Date Recorded Sex Assigned at Not on file Legal Sex Female 3:22 AM STUDENT OUTREACH COORDINATOR Gender Identity Female 06/27/2022 9:35 PM CDT [...] Gatherings with Friends and Family: ??? Attends Christianity Services: ??? Active Member of Clubs or [...] is clear saliva flow from Stensen's and Livingston's ducts bilaterally. LYMPHATIC: No cervical lymphadenopathy except [...] Referral Reason: Specialty Services Required Referral Location: [facility] (All Locations) Requested Specialty: Otolaryngology Number of Visits Requested: 1 Patient has presumed enlarged tonsils but exam today does not demonstrate this and there is no inflammation in the pharynx or hypopharynx. I can palpate 1 small mass in the left supraclavicular area.This could be a small lymph node or a mass of the deeper levels of the skin. Given its size and the fact that it is nontender I have not recommended treatment. I did review her CT scan images. This is from [facility] and I do not see [...] this point. Medical records from the primary carephysician and/or the referring physician were personally reviewed [...] documented as of this encounter Care Teams Heavy Machinery Assembler Relationship Specialty Start Date End Date Tristin Ghotra MD [address] [facility] [address] [place] [address] PCP - General 12/07/18 documented as of this encounter
--- OUTSIDE RECORDS SUMMARY | 2024-03-10 02:17 | XMS_ITS | Encounter Summary ---
Author Organization [facility] Address [address] [place] [address] Care Team Providers Care Eye Dropper Assembler Name Role Phone Tristin Ghotra MD Primary Care Provider [phone] Reason for Visit * Reason Comments Follow-up Encounter Details Date Type Department Care Team (Late st Contact Info) Description 06/28/2022 9:15 AM CDT Office Visit [facility] Pulmonology [address] [facility] [address] [place] [address] Kate Carrasco MD [address] [facility] [address] [place] [address] Severe persistent asthma without complication (Primary Dx); Chronic rhinitis Social History Tobacco Use Types Packs/Day Years Used Date Smoking Tobacco: Never Alcohol Use Standard Drinks/Week Comments Yes 0 (1 standard drink = 0.6 oz pur e alcohol) Comments Unknown Sex and Gender Information Value Date Recorded Sex Assigned at Not on file Legal Sex Female 3:22 AM QUALITATIVE RESEARCHER Gender Identity Female 06/27/2022 9:35 PM CDT [...] etoh. No drug use. 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
--- OUTSIDE RECORDS SUMMARY | 2024-03-10 02:17 | XMS_ITS | Clinical Summary ---
Author Organization [facility] Address [facility] [place] [address] Care Team Providers Care Chopping Machine Operator Name Role Phone Tristin Ghotra MD Primary Care Provider Allergies No known active allergies Medications aspirin 81 mg tablet take 1 tablet by oral route every day 0 0 4 Active amLODIPine (NORVASC) 5 mg tablet amlodipine 5 mg tablet TAKE 1 TABLET BY MOUTH EVERY DAY Active albuterol HFA (PROVENTIL HFA,VENTOLIN HFA,PROAIR HFA) 90 mcg/actuation inhaler albuterol sulfate HFA 90 mcg/actuation aerosol inhaler Active inhalational spacing device (OptiChamber Tasha [facility]) spacer 1 Device daily 1 [...] Department Care Team Description 03/06/2024 Orders Only [facility] Cardiology [address] [place] [address] Cristopher Lipscomb MD 12/19/2023 Telephone [facility] [address] [place] [address] Miscellaneous, Not In File from Last 3 Months Surgical History Surgery Date Site/Laterality Comments APPENDECTOMY Appendectomy CHOLECYSTECTOMY Cholecystectomy Medical History Medical History Date Comments Hx Other Medical biliary obstruc tion with multiple stents and remov; Comments: CHUCK 09/25/2013 - Allergic rhinitis Hypertension Fatigue Shortness [...] on file Legal Sex Female 3:22 AM EXTERNAL AUDITOR Gender Identity Female 06/27/2022 9:35 PM [...] CARDIOLOGY DOCUMENT SCAN Routine 03/03/2024 8:40 AM EXTERNAL AUDITOR SCREENING MAMMOGRAM BILATERAL W NADIR 12/27/2018 2:46 PM EXTERNAL AUDITOR from Last 3 Months or Most Recently Relevant to Health Maintenance Results * Cardiology Document Scan (03/03/2024 8:40 AM EXTERNAL AUDITOR) Anatomical Region Laterality Modality Other us Cristopher Lipscomb MD CV [facility]AC [facility] Final Result * Screening Mammogram Bilateral W Nadir (12/27/2018 2:46 PM EXTERNAL AUDITOR) Anatomical Region Laterality Modality Breast Bilateral Mammography 12/27/2018 3:37 PM EXTERNAL AUDITOR Narrative 12/28/2018 10:58 AM EXTERNAL AUDITOR Patient Name: RUDI MCKEON V ?Ordering Dr: Ahsan Street ?? D.O.B: 1975 ? Exam Date: 12/27/ ?? 1446 ?? Age: 43 ?Sex: Female ? MR#: [id number] ?? Loc: ? RADIOLOGY REPORT ?? Order #[id number] ?? [facility] ? Breanna Bilat [...] age 41, based on guidelines of the [employer] ?? Radiology (ACR Practice Parameter for the Performance of Screening and ?? Diagnostic Mammography) and [employer] of Obstetricians and ?? Gynecologists. For women with an elevated risk of breast cancer, please refer ?? to the ACR Practice Parameter for specific screening recommendations. ? The patient will be entered into a reminder system with a target due date of 1 ?? year for her next screening exam. ? Electronically signed by: ?Sai Marcum M.D. ? ab/penrad:12/28/2018 10:58:37 ? Natural Developer: Kisha Dinh)(M), [facility] ?? letter sent: Normal Exam ? Reading location: ?? BI-RADS: 2 Benign ? REPORT ELECTRONICALLY SIGNED IN OTHER VENDOR SYSTEM ?? Resulting Agency Comment O Procedure Note Sai Marcum MD - 12/28/2018 Patient Name: MIKERUDI Galvez Dr: Ahsan Street D.O.B: 1975 Exam Date: 12/27/18 1446 Age: 43 Sex: Female MR#: [id number] Loc: RADIOLOGY REPORT Order #[id number] [facility] Breanna Bilat Screening 3D Signed - [...] age 41, based on guidelines of the [employer] (ACR Practice Parameter for the Performance of Screening and Diagnostic Mammography) and [employer]st[employer]ians and Gynecologists. For women with an elevated risk of breast cancer, pleaserefer to the ACR Practice Parameter for specific screening recommendations. The patient will be entered into a reminder system with a target due dateof 1 year for her next screening exam. Electronically signed by: Sai lyons/trish:12/28/2018 10:58:37 Natural Developer: Kisha Dinh)(Caro), [facility] letter sent: Normal Exam Reading location: BI-RADS: 2 Benign REPORT ELECTRONICALLY SIGNED IN OTHER VENDOR SYSTEM Ahsan Street MD IMG MAMMO PROCEDURES Final R esult from Last 3 Months or Most Recently Relevant to Health Maintenance Insurance Efficiency NetworkBEATRICE OPEN ACCESS CIGNA OPEN ACCESS CIG[employer] OPEN ACCESS Care Teams Chopping Machine Operator Relationship Specialty Start Date End Date Tristin Ghotra MD [address] [place] [address] PCP - General 12/07/18
--- OUTSIDE RECORDS SUMMARY | 2024-03-10 02:17 | XMS_ITS | Encounter Summary ---
Author Organization [facility] Healthcare Address [address] [place] [address] Care Team Providers Care Yarn Dry Room Worker Name Role Phone Tristin Ghotra MD Primary Care Provider [phone] Encounter Details Date Type Department Care Team (Late st Contact Info) Description 07/17/2019 9:08 AM CDT Hospital Encounter [facility] Edgar Hager MD [address] [place] [address] Social History Tobacco Use Types Packs/Day Years Used Date Smoking Tobacco: Never Alcohol Use Standard Drinks/Week Comments Yes 0 (1 standard drink = 0.6 oz pur e alcohol) Comments Unknown Sex and Gender Information Value Date Recorded Sex Assigned at Not on file Legal Sex Female 3:22 AM CONTENT DIRECTOR Gender Identity Female 06/27/2022 9:35 PM CDT [...] ?? Age: 44 ?Sex: Female ? MR#: [id number] ?? Loc: ? RADIOLOGY REPORT ?? Order #[id number] ?? Magnetic Resonance Imaging ? MRI Abdomen [...] T: ??07/17/2019 10:09 AM ? Report ID: [id number] ?? Reading Location: ??[id number] ? REPORT ELECTRONICALLY SIGNED IN OTHER VENDOR SYSTEM ?? Resulting Agency Comment O Procedure Note Yash Gonzalez MD - 07/17/2019 Patient Name: MELINDAPAOLAKassandra Galvez Dr: Edgar Hager MD D.O.B: 1975 Exam Date: 07/17/19 0949 Age: 44 Sex: Female MR#: [id number] Loc: RADIOLOGY REPORT Order #[id number] Magnetic Resonance Imaging MRI Abdomen Signed EXAM [...] by Yash Gonzalez M.D. JR: Report ID: [id number] Reading Location: [id number] REPORT ELECTRONICALLY SIGNED IN OTHER VENDOR SYSTEM Edgar Hager MD IM MRI PROCEDURES Final Result documented in this encounter Visit Diagnoses Not on filedocumented in this encounter Care Teams Yarn Dry Room Worker Relationship Specialty Start Date End Date Tristin Ghotra MD [address] [facility] [address] [place] [address] PCP - General 12/07/18 documented as of this encounter
--- OUTSIDE RECORDS SUMMARY | 2024-03-10 02:17 | XMS_ITS | Encounter Summary ---
Author Organization [facility] Facility Care Team Providers Care Manager Technical Services Name Role Phone Tristin Ghotra MD Primary Care Provider [phone] Encounter Details Date Type Department Care Team (Latest Contact Info) Description 05/20/2015 9:10 AM CDT - 05/20/2015 11:59 PM CDT Hospital Encounter [facility] Mason Waldrop MD [address] [facility] [address] [place] [address] Atherosclerotic heart disease of [place] coronary artery without angina pectoris; Coronary artery dissection; Essential (primary) hypertension Social History Tobacco Use Types Packs/Day Years Used Date Smoking Tobacco: Never Alcohol Use Standard Drinks/Week Comments Yes 0 (1 standard drink = 0.6 oz pur e alcohol) Comments Unknown Sex and Gender Information Value Date Recorded Sex Assigned at Not on file Legal Sex Female 3:22 AM AIR VALVE REPAIRER Gender Identity Female 06/27/2022 9:35 PM CDT [...] Plasma lipid panel (05/20/2015 9:18 AM CDT) [facility] Cholesterol 164 30 - 200 mg/dl HISTORICAL [...] Visit Diagnoses Diagnosis 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
--- OUTSIDE RECORDS SUMMARY | 2024-03-10 02:17 | XMS_ITS | Encounter Summary ---
Author Organization [facility] Address [address] [place] [address] Care Team Providers Care Sole Stitcher Hand Name Role Phone Tristin Ghotra MD Primary Care Provider [phone] Encounter Details Date Type Department Care Team (Late st Contact Info) Description 10/13/2021 5:30 PM CDT Lab [address] [address] Chronic rhinitis Social History Tobacco Use Types Packs/Day Years Used Date Smoking Tobacco: Never Alcohol Use Standard Drinks/Week Comments Yes 0 (1 standard drink = 0.6 oz pur e alcohol) Comments Unknown Sex and Gender Information Value Date Recorded Sex Assigned at Not on file 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 Testing performed by: [facility], [facility], [place]., [address] Blood 10/13/2021 2:13 PM CDT 10/14/2021 1:10 PM CDT us Kate Carrasco MD LAB [place]LOOD [place] [address] [address] Department [place] [address] * Allergen evaluation (10/13/2021 2:13 PM CDT) RAST, allergen name See Interpretive data. FRED LO Comment: Interpretive data Rast Class ?Result range (KUnits/L) ?1+ ?0.35 ?- ?? 0.69 ?2+ ?0.70 ?- ?? 3.49 ?3+ ?3.50 ?- ??17.49 ?4+ ? 17.50 ?- ??49.99 ?5+ ? 50.00 ?- 100.00 ?6+ ? >100.00 Current interpretive data was last revised on 09. Testing performed by: [facility], [facility], [place]., [address] Blood 10/13/2021 2:13 PM CDT 10/14/2021 1:10 PM CDT us Kate Carrasco MD LAB BLOOD ORDERABLES Final Re sult [facility] [address] [address] Department [place] [address] * Differential, auto (10/13/2021 2:13 PM CDT) Neutrophil abs 3.6 1.7 - 6.5 K/cumm CERN[facility] Imm gran abs 0.0 0.0 - 0.1 K/cumm [facility] Lymphocyte abs 1.6 0.8 - 3.3 K/cumm CERN[facility] Monocyte abs 0.4 0.2 - 0.8 K/cumm [facility] Eosinophil abs 0.1 0.0 - 0.5 K/cumm [facility] Basophil abs 0.0 0.0 - 0.1 K/cumm [facility] Neutrophil pct 63.0 % [facility] Comment: Interpretive Data Percent cell count reference ranges are not reported, since discordance with absolute values may lead to misinterpretation of CBC data. Current Interpretive Data was last revised on 2017. Imm gran pct 0.3 % [facility] Comment: Interpretive Data Percent cell count reference ranges are not reported, since discordance with absolute values may lead to misinterpretation of CBC data. Current Interpretive Data was last revised on 2017. Lymphocyte pct 27.6 % [facility] Comment: Interpretive Data Percent cell count reference ranges are not reported, since discordance with absolute values may lead to misinterpretation of CBC data. Current Interpretive Data was last revised on 2017. Monocyte pct 7.5 % [facility] Comment: Interpretive Data Percent cell count reference [...] MD LAB BLOOD ORDERABLES Final Re sult [facility] [address] [address] Department [place] [address] * (ABNORMAL) CBC with auto differential (10/13/2021 2:13 PM CDT) WBC 5.7 3.8 - 9.9 K/cumm [facility] Hgb 14.0 11.9 - 15.5 g/dL [facility] Hct 41.7 35.6 - 45.5 % [facility] Plt 260 150 - 400 K/cumm [facility] MPV 11.2 9.1 - 12.3 fL [facility] RBC 4.30 3.90 - 5.20 M/cumm [facility] MCV 97.0(H) 81.3 - 96.4 fL [facility] MCH 32.6 27.1 - 33.3 pg [facility] MCHC 33.6 32.3 - 35.7 g/dL [facility] RDW CV 12.9 11.1 - 14.9 % [facility] RDW SD 46.1 35.7 - 48.1 fL [facility] NRBC abs 0.00 0.00 - 0.01 K/cumm [facility] Blood 10/13/2021 2:13 PM CDT 10/13/2021 5:33 PM CDT Kate Carrasco MD LAB BLOOD ORDERABLES Final Re sult Performing Organization Address [facility] Co de Phone Number FRED [address] [address] Department [place] [address] * (ABNORMAL) IgE (10/13/2021 2:13 PM CDT) IgE 387.0(H) 1.0 - 100.0 IUnits/mL [facility] Comment:Testing performed by : [facility], [address] [place] [address]., [address] Blood 10/13/2021 2:1 3 PM CDT 10/14/2021 1:01 PM CDT Kate Carrasco MD LAB BLOOD ORDERABLES Final Re sult Performing Organization Address [facility] Co de Phone Number FRED [address] [address] [facility] [place] [address] * (ABNORMAL) Alleren Rat urine proteins (animal) IgE (10/13/2021 2:13 PM CDT) Pathologist [facility] Rat urine proteins IgE 1.79(H) 0.00 - 0.34 kUnits/L [facility] Comment:Testing performed by : [facility], [facility], [place]., [address] Blood 10/13/2021 2:13 PM CDT 10/14/2021 1:11 PM CDT Kate Carrasco MD LAB BLOOD ORDERABLES Final Re sult Performing Organization Address City/[facility] Co de Phone Number FRED [address] [address] [facility] [place] [address] * (ABNORMAL) Allergen Mouse urine proteins (animal) IgE (10/13/2021 2:13 PM CDT) Mouse urine proteins IgE 1.22(H) 0.00 - 0.34 kUnits/L [facility] Comment:Testing performed by : [facility], [place]., [address] Blood 10/13/2021 2:13 PM CDT 10/14/2021 1:11 PM CDT Kate Carrasco MD LAB BLOOD ORDERABLES Final Re sult Performing Organization Address [facility] Co de Phone Number [facility] [address] [address] Department [place] [address] * (ABNORMAL) Allergen Dog dander (animal) IgE (10/13/2021 2:13 PM CDT) Dog dander IgE 7.20(H) 0.00 - 0.34 kUnits/L [facility] Comment:Testing performed by : [facility], [place]., [address] Blood 10/13/2021 2:13 PM CDT 10/14/2021 1:11 PM CDT Kate Carrasco MD LAB BLOOD ORDERABLES Final Re sult Performing Organization Address [facility] de Phone Number [facility] [address] [address] [facility] [place] [address] * Allergen Dermatophagoides pteronyssinus (insect) IgE (10/13/2021 2:13 PM CDT) Dermatophyton pteronyssinus IgE 0.12 0.00 - 0.34 kUnits/L [facility] Comment:Testing performed by : [facility], [place]., [address] Blood 10/13/2021 2:13 PM CDT 10/14/2021 1:11 PM CDT Kate Carrasco MD LAB BLOOD ORDERABLES Final Re sult Performing Organization Address [facility]/State/[facility] Co de Phone Number [facility] [address] [address] [facility] [place] [address] * Allergen Dermatophagoides farniae (insect) IgE (10/13/2021 2:13 PM CDT) Dermatophyton farinae IgE 0.11 0.00 - 0.34 kUnits/L FRED Comment:Testing performed by : [facility], [place]., [address] Blood 10/13/2021 2:13 PM CDT 10/14/2021 1:11 PM CDT Kate Carrasco MD LAB BLOOD ORDERABLES Final Re sult Performing Organization Address [facility] Co de Phone Number [facility] [address] [address] [facility] [place] [address] * Allergen Cockroach kazakh (insect) IgE (10/13/2021 2:13 PM CDT) Cockroach IgE <0.10 0.00 - 0.34 kUnits/L FRED Comment:Testing performed by : [facility], [place]., [address] Blood 10/13/2021 2:13 PM CDT 10/14/2021 1:11 PM CDT Kate Carrasco MD LAB BLOOD ORDERABLES Final Re sult Performing Organization Address City/[facility] Co de Phone Number [facility] [address] [address] [facility] [place] [address] * (ABNORMAL) Allergen Cat dander standard (animal) IgE (10/13/2021 2:13 PM CDT) Cat dander IgE >100.00(H) 0.00 - 0.34 kUnits/L FRED Comment:Testing performed by : [facility], [place]., [address] Blood 10/13/2021 2:13 PM CDT 10/14/2021 1:11 PM CDT Kate Carrasco MD LAB BLOOD ORDERABLES Final Re sult Performing Organization Address [facility] Co de Phone Number FRED [address] [address] [facility] [place] [address] * (ABNORMAL) Allergen Penicillium chrysogenum (mold) IgE (10/13/2021 2:13 PM CDT) Penicillium chrysogenum IgE 0.40(H) 0.00 - 0.34 kUnits/L FRED Comment:Testing performed by : [place]., [address] Blood 10/13/2021 2:13 PM CDT 10/14/2021 1:11 PM CDT Kate Carrasco MD LAB BLOOD ORDERABLES Final Re sult Performing Organization Address [facility] Co de Phone Number [facility] [address] [address] [facility] [place] [address] * (ABNORMAL) Allergen Cladosporium herbarum (mold) IgE (10/13/2021 2:13 PM CDT) Cladosporium herbarum IgE 0.38(H) 0.00 - 0.34 kUnits/L FRED Comment:Testing performed by : [place]., [address] Blood 10/13/2021 2:13 PM CDT 10/14/2021 1:11 PM CDT Kate Carrasco MD LAB BLOOD ORDERABLES Final Re sult Performing Organization Address City/[facility] Co de Phone Number [facility] [address] [address] [facility] [place] [address] * (ABNORMAL) Allergen Aspergillus fumigatus (mold) IgE (10/13/2021 2:13 PM CDT) Aspergillus fumigatus IgE 0.48(H) 0.00 - 0.34 kUnits/L FRED Comment:Testing performed by : [facility], [place]., [address] Blood 10/13/2021 2:13 PM CDT 10/14/2021 1:11 PM CDT Kate Carrasco MD LAB BLOOD ORDERABLES Final Re sult Performing Organization Address City/[facility] Co de Phone Number [facility] [address] [address] [facility] [place] [address] * (ABNORMAL) Allergen Alternaria tenuis (mold) IgE (10/13/2021 2:13 PM CDT) Alternaria tenius IgE 2.64(H) 0.00 - 0.34 kUnits/L FRED Comment:Testing performed by : [facility], [place]., [address] Blood 10/13/2021 2:13 PM CDT 10/14/2021 1:11 PM CDT Kate Carrasco MD LAB BLOOD ORDERABLES Final Re sult Performing Organization Address City/[facility]/ZIP Co de Phone Number [facility] [address] [facility] [place] [address] * (ABNORMAL) Allergen Ragweed short/common (weed) IgE (10/13/2021 2:13 PM CDT) Ragweed common IgE 0.42(H) 0.00 - 0.34 kUnits/L FRED Comment:Testing performed by : [facility], [place]., [address] Blood 10/13/2021 2:13 PM CDT 10/14/2021 1:11 PM CDT Kate Carrasco MD LAB BLOOD ORDERABLES Final Re sult Performing Organization Address [facility] Co de Phone Number [facility] [address] [address] [facility] [place] [address] * Allergen Pigweed, rough (weed) IgE (10/13/2021 2:13 PM CDT) Pigweed rough IgE <0.10 0.00 - 0.34 kUnits/L [facility] Comment:Testing performed by : [facility], [place]., [address] Blood 10/13/2021 2:13 PM CDT 10/14/2021 1:11 PM CDT Kate Carrasco MD LAB BLOOD ORDERABLES Final Re sult Performing Organization Address [facility] Co de Phone Number [facility] [address] [address] [facility] [place] [address] * Allergen Rico's quarter (weed) IgE (10/13/2021 2:13 PM CDT) Pathologist [facility] Rico's quarters IgE <0.10 0.00 - 0.34 kUnits/L [facility] Comment:Testing performed by : [facility], [place]., [address] Blood 10/13/2021 2:13 PM CDT 10/14/2021 1:11 PM CDT Kate Carrasco MD LAB BLOOD ORDERABLES Final Re sult Performing Organization Address City/[facility] Co de Phone Number [facility] [address] [address] [facility] [place] [address] * Allergen Plantain citizen of [place] (weed) IgE (10/13/2021 2:13 PM CDT) Pathologist [facility] Plantain citizen of [place] IgE <0.10 0.00 - 0.34 kUnits/L [facility] Comment:Testing performed by : [facility], [place]., [address] Blood 10/13/2021 2:13 PM CDT 10/14/2021 1:11 PM CDT Kate Carrasco MD LAB BLOOD ORDERABLES Final Re sult Performing Organization Address [facility] Co de Phone Number FRED [address] [address] [facility] [place] [address] * Allergen Suhail grass (grass) IgE (10/13/2021 2:13 PM CDT) Suhail grass IgE <0.10 0.00 - 0.34 kUnits/L FRED Comment:Testing performed by : [facility], [place]., [address] Blood 10/13/2021 2:13 PM CDT 10/14/2021 1:11 PM CDT Result [facility] Kate Carrasco MD LAB BLOOD ORDERABLES Final Re sult Performing Organization Address [facility] de Phone Number FRED [address] [address] [facility] [place] [address] * Allergen Hunter grass (grass) IgE (10/13/2021 2:13 PM CDT) Hunter grass IgE <0.10 0.00 - 0.34 kUnits/L FRED Comment:Testing performed by : [facility], [place]., [address] Blood 10/13/2021 2:13 PM CDT 10/14/2021 1:11 PM CDT Kate Carrasco MD LAB BLOOD ORDERABLES Final Re sult Performing Organization Address [facility] Co de Phone Number FRED [address] [address] [place] [address] * Allergen Bermuda grass (grass) IgE (10/13/2021 2:13 PM CDT) Bermuda grass IgE <0.10 0.00 - 0.34 kUnits/L [facility] Comment:Testing performed by : [facility], [place]., [address] Blood 10/13/2021 2:13 PM CDT 10/14/2021 1:11 PM CDT Kate Carrasco MD LAB BLOOD ORDERABLES Final Re sult Performing Organization Address City/[facility] Co de Phone Number [facility] [address] [address] [place] [address] * (ABNORMAL) Allergen Taft (tree) IgE (10/13/2021 2:13 PM CDT) Taft (tree) IgE 0.75(H) 0.00 - 0.34 kUnits/L [facility] Comment:Testing performed by : [facility], [place]., [address] Blood 10/13/2021 2:13 PM CDT 10/14/2021 1:11 PM CDT Kate Carrasco MD LAB BLOOD ORDERABLES Final Re sult Performing Organization Address City/[facility] Co de Phone Number [facility] [address] [address] [place] [address] * Allergen Dacono kazakh (tree) IgE (10/13/2021 2:13 PM CDT) Dacono IgE 0.12 0.00 - 0.34 kUnits/L [facility] Comment:Testing performed by : [facility], [place]., [address] Blood 10/13/2021 2:13 PM CDT 10/14/2021 1:11 PM CDT Kate Carrasco MD LAB BLOOD ORDERABLES Final Re sult Performing Organization Address City/[facility] [place] [address] [address] [facility] [place] [address] * Allergen Alachua red (tree) IgE (10/13/2021 2:13 PM CDT) Alachua IgE <0.10 0.00 - 0.34 kUnits/L FRED Comment:Testing performed by : [facility], [place]., [address] Blood 10/13/2021 2:13 PM CDT 10/14/2021 1:11 PM CDT Kate Carrasco MD LAB BLOOD ORDERABLES Final Re sult Performing Organization Address [facility] Co de Phone Number [facility] [address] [address] [place] [address] * Allergen Ocala (tree) IgE (10/13/2021 2:13 PM CDT) [place] IgE <0.10 0.00 - 0.34 kUnits/L FRED Comment:Testing performed by : [facility], [place]., [address] Blood 10/13/2021 2:13 PM CDT 10/14/2021 1:11 PM CDT Kate Carrasco MD LAB BLOOD ORDERABLES Final Re sult Performing Organization Address City/[facility]/ZIP Co de Phone Number [facility] [address] [address] [place] [address] * Allergen Mountain juniper (tree) IgE (10/13/2021 2:13 PM CDT) Mountain juniper IgE 0.15 0.00 - 0.34 kUnits/L FRED Comment:Testing performed by : [place]., [address] Blood 10/13/2021 2:13 PM CDT 10/14/2021 1:11 PM CDT Kate Carrasco MD LAB BLOOD ORDERABLES Final Re sult Performing Organization Address [facility]/[place] [address] [address] [place] [address] * Allergen Maple/Box elder (tree) IgE (10/13/2021 2:13 PM CDT) Maple/box elder IgE <0.10 0.00 - 0.34 kUnits/L FRED Comment:Testing performed by : [facility], [place]., [address] Blood 10/13/2021 2:13 PM CDT 10/14/2021 1:11 PM CDT Result [facility] Kate Carrasco MD LAB BLOOD ORDERABLES Final Re sult Performing Organization Address [facility] Co de Phone Number FRED [address] [place] [address] * Allergen Elm (tree) IgE (10/13/2021 2:13 PM CDT) Elm IgE 0.10 0.00 - 0.34 kUnits/L FRED LO Comment:Testing performed by : [facility], [place]., [address] Blood 10/13/2021 2:13 PM CDT 10/14/2021 1:11 PM CDT Result [facility] Kate Carrasco MD LAB BLOOD ORDERABLES Final Re sult FRED [address] [address] [place] [address] * Allergen Birch common silver (tree) IgE (10/13/2021 2:13 PM CDT) Birch common silver IgE <0.10 0.00 - 0.34 kUnits/L FRED LO Comment:Testing performed by : [facility], [facility], [place]., [address] Blood 10/13/2021 2:13 PM CDT 10/14/2021 1:11 PM CDT us Kate Carrasco MD LAB BLOOD [place] [address] [address] [place] [address] documented in this encounter Visit Diagnoses Diagnosis Chronic rhinitis documented in this encounter Care Teams Sole Stitcher Hand Relationship Specialty Start Date End Date Tristin Ghotra MD [address] [facility] [address] [place] [address] PCP - General 12/07/18 documented as of this encounter
--- OUTSIDE RECORDS SUMMARY | 2024-03-10 02:17 | XMS_ITS | Encounter Summary ---
Author Organization [facility] Address [address] [place] [address] Care Team Providers Care Paginator Name Role Phone Tristin Ghotra MD Primary Care Provider [phone] Reason for Visit * Reason Comments Follow-up Encounter Details Date Type Department Care Team (Late st Contact Info) Description 03/01/2022 9:15 AM REPLENISHER Office Visit 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 Gender Identity Female 06/27/2022 9:35 PM CDT Sexual Orientation Not on file documented as of this encounter Last Filed Vital Signs Vital Sign Reading Time Taken Comments Blood Pressure 125/73 03/01/2022 9:09 AM REPLENISHER Pulse 69 03/01/2022 9:09 AM REPLENISHER Temperature - - Respiratory Rate 18 03/01/2022 9:09 AM REPLENISHER Oxygen Saturation 97% 03/01/2022 9:09 AM REPLENISHER Inhaled Oxygen Concentration - - Weight 72.5 kg (159 lb 12.8 oz) 03/01/2022 9:09 AM REPLENISHER Height 175.3 cm (5' 9 ) 03/01/2022 9:09 AM REPLENISHER Body Mass Index 23.6 03/01/2022 9:09 AM REPLENISHER documented in this encounter Ordered Prescriptions Prescription [...] etoh. No drug use. 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 ENISHER documented in this encounter Plan of Treatment [...] DAY added in this encounter Care Teams Paginator Relationship Specialty Start Date End Date Tristin Ghotra MD [address] [facility] [address] [place] [address] PCP - General 12/07/18 documented as of this encounter
--- OUTSIDE RECORDS SUMMARY | 2024-03-10 02:17 | XMS_ITS | Encounter Summary ---
Author Organization [facility] Address [address] [place] [address] Care Team Providers Care I&C Tech Name Role Phone Unavailable Primary Care Provider Unavailabl e Encounter Details Date Type Department Care Team (Latest Contact Info) Description 06/13/2012 4:04 PM CDT Hospital Encounter [facility] Edgar Hager MD [address] [place] [address] Abnormal levels of other serum enzymes; Pruritic disorder; Abdominal pain Social History Tobacco Use Types Packs/Day Years Used Date Smoking Tobacco: Never Assessed Comments Unknown Sex and Gender Information Value Date Recorded Sex Assigned at Not on file 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 Gender Identity Female 06/27/2022 9:35 PM CDT [...] 10.2 x10 3/ul 06/13/2012 5:02 PM CDT [facility] HISTORICAL RESULTS RBC 3.94 3.76 - 4.80 x10 6/ul 06/13/2012 5:02 PM CDT [employer] HISTORICAL RESULTS Hemoglobin 12.6 11.0 - 15.0 g/dl 06/13/2012 5:02 PM CDT [place] HISTORICAL RESULTS Hct 37.1 33.0 - 43.0 % 06/13/2012 5:02 PM CDT [place] [facility] HISTORICAL RESULTS MCV 94.2 80.0 - 97.0 fl 06/13/2012 5:02 PM CDT [facility] HISTORICAL RESULTS MCH 32.0(H) 27.0 - 31.2 pg 06/13/2012 5:02 PM CDT [place] [facility] HISTORICAL RESULTS MCHC 34.0 31.8 - 35.4 g/dl 06/13/2012 5:02 PM CDT [place] [facility] HISTORICAL RESULTS RDW 12.5 11.6 - 14.8 % 06/13/2012 5:02 PM CDT [facility] HISTORICAL RESULTS Plt Count 212 124 - 400 x10 3/ul 06/13/2012 5:02 PM CDT [place] [facility] HISTORICAL RESULTS MPV 10.8(H) 7.4 - 10.4 fl 06/13/2012 5:02 PM CDT [place] [facility] HISTORICAL RESULTS 06/13/2012 4:28 PM CDT 06/13/2012 4:46 PM CDT Edgar Hager MD LAB BLOOD ORDERABLES Final Resu lt Performing Organization Address [facility]/ZIP Co de Phone Number [facility] HISTORICAL RESULTS * Lipase (06/13/2012 4:28 PM CDT) Lipase 30 13 - 60 U/L 06/13/2012 5:27 PM CDT [facility] HISTORICAL RESULTS 06/13/2012 4:28 PM CDT 06/13/2012 4:46 PM CDT Edgar Hager MD LAB BLOOD ORDERABLES Final Resu lt Performing Organization Address [facility] Phone Number [facility] HISTORICAL RESULTS * Amylase (06/13/2012 4:28 PM CDT) Amylase 72 28 - 100 U/L 06/13/2012 5:27 PM CDT [facility] HISTORICAL RESULTS 06/13/2012 4:28 PM CDT 06/13/2012 4:46 PM CDT Edgar Hager MD LAB BLOOD ORDERABLES Final Resu lt Performing Organization Address [facility] de Phone Number [facility] HISTORICAL RESULTS * Alkaline phosphatase (06/13/2012 4:28 PM CDT) Alkaline Phosphatase 75 35 - 104 U/L 06/13/2012 5:27 PM CDT [facility] HISTORICAL RESULTS 06/13/2012 4:28 PM CDT 06/13/2012 4:46 PM CDT Edgar Hager MD LAB BLOOD ORDERABLES Final Resu lt Performing Organization Address [facility] Co de Phone Number [facility] HISTORICAL RESULTS * ALT (06/13/2012 4:28 PM CDT) ALT 15 0 - 31 U/L 06/13/2012 5:27 PM CDT [facility] HISTORICAL RESULTS 06/13/2012 4:28 PM CDT 06/13/2012 4:46 PM CDT us Edgar Hager MD LAB BLOOD ORDERABLES Final Resu lt Performing Organization Address [facility] Co de Phone Number [facility] HISTORICAL RESULTS * AST (06/13/2012 4:28 PM CDT) AST 17 0 - 32 U/L 06/13/2012 5:27 PM CDT [facility] HISTORICAL RESULTS 06/13/2012 4:28 PM CDT 06/13/2012 4:46 PM CDT us Edgar Hager MD LAB BLOOD ORDERABLES Final Resu lt Performing Organization Address [facility] de Phone Number [facility] HISTORICAL RESULTS * Bilirubin, total and direct (06/13/2012 4:28 PM CDT) Total Bilirubin 0.4 0.0 - 1.2 mg/dL 06/13/2012 5:27 PM CDT [facility] HISTORICAL RESULTS Direct Bilirubin < 0.20 0.00 - 0.25 mg/dL 06/13/2012 5:27 PM CDT [facility] HISTORICAL RESULTS 06/13/2012 4:28 PM CDT 06/13/2012 4:46 PM CDT us Edgar Hager MD LAB BLOOD ORDERABLES Final Resu lt Performing Organization Address [facility] Co de Phone Number [facility] HISTORICAL RESULTS documented in this encounter Visit Diagnoses Diagnosis Abnormal levels of other serum enzymes Pruritic disorder Unspecified pruritic disorder Abdominal pain Abdominal pain, unspecified site documented in this encounter
--- OUTSIDE RECORDS SUMMARY | 2024-03-10 02:17 | XMS_ITS | Data Portability ---
Author Organization [facility], [employer] Address [address] [address] Care Team Providers Care Packing Machine Feeder Name Role Phone MATT ARMSTRONG Political Organizer Assessment Encounter Date Assessment Date Assessment LastModified [...] available Lab lipid panel, serum 2022 023 [facility], [address], [place], [address], 11/21/2022 13:05:37 CMP, serum or plasma 2022 023 [facility], [address], [place], [address], 11/21/2022 13:05:40 CBC w/ auto diff 2022 023 [facility], [address], [place], [address], 11/21/2022 13:05:41 microalbu min/creat inine, mass ratio, urine 2022 023 [facility], [address], [place], [address], 11/21/2022 13:05:38 HIV 1+2 Ab + HIV1 p24 Ag, quantitat ethan immunoass ay, serum [address] [facility], [address], [place], [address], 11/21/2022 13:05:39 lipid panel, serum 2022 023 [facility], [address], [place], [address], 12/12/2022 12:40:29 microalbu min/creat inine, mass ratio, urine [address] [facility], [address], [place], [address], 12/12/2022 12:40:30 HIV 1+2 Ab + HIV1 p24 Ag, quantitat ethan immunoass ay, serum [address] [facility], [address], [place], [address], 12/12/2022 12:40:31 CMP, serum or plasma [address] [facility], [address], [place], [address], 12/12/2022 12:40:32 CBC w/ auto diff [address] [facility], [address], [place], [address], 12/12/2022 12:40:32 TSH + free T4, serum [address] [facility], [address], [place], [address], 12/07/2022 18:00:32 T3, free, serum or plasma [address] [facility], [address], [place], [address], 12/07/2022 18:00:31 urinalysi s complete, reflex culture [address] [facility], [address], [place], [address], 04/23/2023 05:30:12 CMP, serum or plasma [address] [facility], [address], [place], [address], 04/23/2023 05:30:11 CBC w/ auto diff [address] [facility], [address], [place], [address], 04/23/2023 05:30:13 TSH + free T4, serum [address] [facility], [address], [place], [address], 04/23/2023 05:30:09 T3, free, serum or plasma [address] [facility], [address], [place], [address], 04/23/2023 05:30:13 microalbu min/creat inine, mass ratio, urine [address] [facility], [address], [place], [address], 04/23/2023 05:30:08 lipid panel, serum [address] [facility], [address], [place], [address], 01/06/2024 03:32:50 Referral gynecolog ist referral [address] MD, [address] , [place], [address], 10/27/2022 08:11:54 gastroent erologist referral 2022 023 praful Muir MD, 3 [facility], [address], [address], 09/29/2022 18:12:26 gynecolog ist referral [address] MD, [address], [place], [address], 01/04/2023 08:13:47 gastroent erologist referral 2022 023 [email or web address] Brandon Muir MD, 3 [facility], [address], [place], [address], 12/07/2022 18:02:22 gynecolog ist referral [address] MD, [address] [facility], [place], [address], 05/04/2023 08:09:45 gastroent erologist referral 2023 024 praful Muir MD, 3 [facility], [address], [place], [address], 04/06/2023 17:41:41 gastroent erologist referral 2023 024 [facility] Jorge Crowe MD, [address] [facility], [place], [address], 05/11/2023 12:50:58 gynecolog ist referral [address] [facility] [employer], [address] [facility], [facility] [address], [place], [address], 01/12/2024 08:18:07 gastroent erologist referral 2023 024 [email or web address] Jorge Crowe MD, [address] [facility], [address], [place], [address], 12/15/2023 14:07:27 Procedures None recorded. Surgeries None recorded. Imaging MAMMO, screening , digital, bilateral [facility] [address] [facility], [place], [address], 09/29/2022 18:15:24 MAMMO, screening , digital, bilateral 2022 023 [email or web address] [facility], 1 [facility], [place], [address], 12/07/2022 18:02:22 MAMMO, screening , digital, bilateral [address] [facility], 1 [facility], [place], [address], 04/06/2023 17:41:41 US, liver [address] [facility], 1 [facility], [place], [address], 04/20/2023 08:19:45 XR, chest, 2 view [address] [facility], 1 [facility], [place], [address], 07/20/2023 08:09:24 MAMMO, screening , digital, bilateral 2023 024 [email or web address] [facility], 1 [facility], [place], [address], 12/15/2023 14:07:27 electroca rdiogram [address] [facility], [facility], [address], [place], [address], 12/15/2023 15:12:32 Medication Orders albuterol sulfate HFA 90 mcg/actua tion aerosol inhaler [address] [facility], [address] [place], [address], 12/03/2023 19:10:19 amlodipin e 5 mg tablet 2022 023 [facility], [email or web address], [place], [address], 09/29/2022 18:08:43 amlodipin e 5 mg tablet [address] [facility], [address] [facility], [place], [address], 12/07/2022 17:58:18 Lunesta 2 mg tablet 2022 024 [facility], [address] [facility], [place], [address], 04/06/2023 17:24:24 albuterol sulfate HFA 90 mcg/actua tion aerosol inhaler [address] [facility], [address] [email or web address], [place], [address], 12/03/2023 19:10:19 albuterol sulfate HFA 90 mcg/actua tion aerosol inhaler 2023 024 [facility], [address] [facility], [place], [address], 12/03/2023 19:10:30 amlodipin e 5 mg tablet 2023 024 [facility], [address] [facility], [place], [address], 04/06/2023 17:33:55 Airsupra 90 mcg-80 mcg/actua tion HFA aerosol inhaler 2023 024 [facility], [email or web address], [place], [address], 07/13/2023 18:37:19 dextroamp hetamine- amphetami ne 10 mg tablet [address] [facility], [address] [email or web address], [place], [address], 12/21/2023 06:10:49 Adderall XR 20 mg capsule,e xtended release 2023 [email or web address] Not available 12/15/2023 14:36:51 Airsupra 90 mcg-80 mcg/actua tion HFA aerosol inhaler 2023 [facility], [address] [email or web address], [address], 12/15/2023 13:52:50 amlodipin e 5 mg tablet 2023 [facility], [email or web address], [place], [address], 12/15/2023 13:52:49 losartan 25 mg tablet 2023 [facility], [email or web address], [place], [address], 12/15/2023 13:52:48 Patient TargetsNo targets recorded. Patient Instructions Encounter Date Encounter Id Patient Instructions Last Modified By Organization Details Last Modified Time 07/13/2023 [id number] spirometry testing* MIR Not available 07/13/2023 19:30:30 Reason for Referral Loss Prevention Coordinator Referral for Gy necologic examination Referring Physician: Tristin De Leon [facility], Encounter Date: 09/29/2022 Hosiery Knitter Referral for Screening for malignant neoplasm of colon Referring Physician: Tristin De Leon [facility], Encounter Date: 09/29/2022 Loss Prevention Coordinator Referral for Gy necologic examination Referring Physician: Tristin De [facility], Encounter Date: 12/07/2022 Hosiery Knitter Referral for Screening for malignant neoplasm of colon Referring Physician: Hari Heller Medicine, Encounter Date: 12/07/2022 Loss Prevention Coordinator Referral for Gy necologic examination Referring Physician: Tristin De [facility], Encounter Date: 04/06/2023 Hosiery Knitter Referral for Screening for malignant neoplasm of colon Referring Physician: Hari Heller Medicine, Encounter Date: 04/06/2023 Hosiery Knitter Referral for Liver enzymes level above reference range Referring Physician: Tristin De Leon, Internal Medicine, Encounter Date: 04/06/2023 Loss Prevention Coordinator Referral for Gy necologic examination Referring Physician: Tristin De Leon, Internal Medicine, Encounter Date: 12/15/2023 Hosiery Knitter Referral for Screening for malignant neoplasm of colon Referring Physician: Tristin De Leon, Internal Medicine, Encounter Date: 12/15/2023 Results Created Date Observation Date Name Description Value Unit Range Abnormal Flag Note LastModifiedBy Organization Detail LastModifiedTime 11/20/1911/21/2022 LIPID PANEL , STAND BARRON cholesterol, total 158 mg/dL <200 normal Not Available [address], [address], 11/21/2022 13:05:37 11/20/19 23 11/21/2022 LIPID PANEL , STAND BARRON HDL cholesterol 77 mg/dL > or = 50 normal Not Available [address], [address], 11/21/2022 13:05:37 11/20/19 23 11/21/2022 LIPID PANEL , STAND BARRON triglyceride s 51 mg/dL <150 normal Not Available [address], [address], 11/21/2022 13:05:37 11/20/19 23 11/21/2022 LIPID PANEL [...] n, which is a valid ated novel jacyobo d carolina wildete r accur acy than the Fried anat equat ion in the estim ation of LDL-C . Beth stark SS et al. MALDONADO. 2013; 310(5 2): 2061- 2068 (http ://ed ucati on.Qu Esa bhaktaRPOs. com/f aq/FA Q164) Not Available [address], [place], [address], 11/21/2022 13:05:37 11/20/19 23 11/21/2022 LIPID PANEL , STAND BARRON chol/HDLC ratio 2.1 (calc ) <5.0 normal Not Available [address], [place], [address], 11/21/2022 13:05:37 11/20/19 23 11/21/2022 LIPID PANEL , STAND BARORN non HDL cholesterol 81 mg/dL _(frank c) <130 normal For patie nts with diabe gavin plus 1 major ASCVD risk facto r, treat ing to a non-H DL-C goal of <100 mg/dL (LDL- C of <70 mg/dL ) is consi dered a thera pejas c optio n. Not Available [address] , [place], [address], 11/21/2022 13:05:37 11/20/19 23 11/21/2022 ALBUM IN, RANDO M URINE W/CRE ATINI NE creatinine, random urine 235 mg/dL 20-275 normal Not Available [address] [address] [address] [place], [address], 11/21/2022 13:05:38 11/20/19 23 11/21/2022 ALBUM IN, RANDO M URINE W/CRE ATINI NE albumin, urine 4.9 mg/dL see note: normal Refer ence Range : Refer ence Range Not estab lishe d Not Available [address] [address] [place], [address], 11/21/2022 13:05:38 11/20/19 23 11/21/2022 ALBUM IN, [...] a diagn ostic categ ory. Not Available [facility] [address], [place], [address], 11/21/2022 13:05:38 11/20/19 23 11/21/2022 HIV 1/2 [...] matio n pleas e refer to http: //[facility] catdeepak stark.que stdia gnost ics.c om/fa q/FAQ 106 (This link is being provi ded for infor matio nal/ educa miriam l purpo ses only. ) The perfo rmanc e of this assay has not been clini uriah valid ated in patie nts less than 2 years old. Not Available [address], [address], 11/21/2022 13:05:39 11/20/19 23 11/21/2022 COMPR EHENS ETHAN METAB OLIC PANEL glucose 89 mg/dL 65-99 normal Fasti ng refer ence inter wilbur Not Available [facility] [address], [address], 11/21/2022 13:05:40 11/20/19 23 11/21/2022 COMPR EHENS ETHAN METAB OLIC PANEL urea nitrogen (BUN) 13 mg/dL 7-25 normal Not Available [address], [address], 11/21/2022 13:05:40 11/20/19 23 11/21/2022 COMPR EHENS ETHAN METAB OLIC PANEL creatinine 0.73 mg/dL 0.50-0 .99 normal Not Available [facility] [address], [address], 11/21/2022 13:05:40 11/20/19 23 11/21/2022 COMPR EHENS ETHAN METAB OLIC PANEL eGFR 103 mL/mi n/1.7 3m2 > or = 60 normal Not Available [address], [address], 11/21/2022 13:05:40 11/20/19 23 11/21/2022 COMPR EHENS ETHAN METAB OLIC PANEL BUN/creatini ne ratio SEE NOTE: (calc ) 6-22 Not Repor catherine: BUN and Creat inine are withi n refer ence range . Not Available [facility] [address], [address], 11/21/2022 13:05:40 11/20/19 23 11/21/2022 COMPR EHENS ETHAN METAB OLIC PANEL sodium 137 mmol/ L 135-14 6 normal Not Available [facility] [address] [place], [address], 11/21/2022 13:05:40 11/20/19 23 11/21/2022 COMPR EHENS ETHAN METAB OLIC PANEL potassium 4.0 mmol/ L 3.5-5. 3 normal Not Available [address], [address], 11/21/2022 13:05:40 11/20/19 23 11/21/2022 COMPR EHENS ETHAN METAB OLIC PANEL chloride 102 mmol/ L 98-110 normal Not Available [address], [address], 11/21/2022 13:05:40 11/20/19 23 11/21/2022 COMPR EHENS ETHAN METAB OLIC PANEL carbon dioxide 27 mmol/ L 20-32 normal Not Available [address], [address], 11/21/2022 13:05:40 11/20/19 23 11/21/2022 COMPR EHENS ETHAN METAB OLIC PANEL calcium 9.5 mg/dL 8.6-10 .2 normal Not Available [address], [address], 11/21/2022 13:05:40 11/20/19 23 11/21/2022 COMPR EHENS ETHAN METAB OLIC PANEL protein, total 7.3 g/dL 6.1-8. 1 normal Not Available [address], [address], 11/21/2022 13:05:40 11/20/19 23 11/21/2022 COMPR EHENS ETHAN METAB OLIC PANEL albumin 4.5 g/dL 3.6-5. 1 normal Not Available [address], [address], 11/21/2022 13:05:40 11/20/19 23 11/21/2022 COMPR EHENS ETHAN METAB OLIC PANEL globulin 2.8 g/dL_ (calc ) 1.9-3. 7 normal Not Available [address], [address], 11/21/2022 13:05:40 11/20/19 23 11/21/2022 COMPR EHENS ETHAN METAB OLIC PANEL albumin/glob ulin ratio 1.6 (calc ) 1.0-2. 5 normal Not Available [address], [address], 11/21/2022 13:05:40 11/20/19 23 11/21/2022 COMPR EHENS ETHAN METAB OLIC PANEL bilirubin, total 1.0 mg/dL 0.2-1. 2 normal Not Available [address], [address], 11/21/2022 13:05:40 11/20/19 23 11/21/2022 COMPR EHENS ETHAN METAB OLIC PANEL alkaline phosphatase 123 U/L 31-125 normal Not Available [address], [address], 11/21/2022 13:05:40 11/20/19 23 11/21/2022 COMPR EHENS ETHAN METAB OLIC PANEL AST 65 U/L 10-35 high Not Available [address], [address], 11/21/2022 13:05:40 11/20/19 23 11/21/2022 COMPR EHENS ETHAN METAB OLIC PANEL ALT 80 U/L 6-29 high Not Available [address], [address], 11/21/2022 13:05:40 11/20/19 23 11/21/2022 CBC (INCL UDES DIFF/ PLT) white blood cell count 4.0 thous and/u L 3.8-10 .8 normal Not Available [address], [address], 11/21/2022 13:05:41 11/20/19 23 11/21/2022 CBC (INCL UDES DIFF/ PLT) red blood cell count 4.10 josh on/uL 3.80-5 .10 normal Not Available [address], [address], 11/21/2022 13:05:41 11/20/19 23 11/21/2022 CBC (INCL UDES DIFF/ PLT) hemoglobin 14.5 g/dL 11.7-1 5.5 normal Not Available [address], [address], 11/21/2022 13:05:41 11/20/19 23 11/21/2022 CBC (INCL UDES DIFF/ PLT) hematocrit 40.2 % 35.0-4 5.0 normal Not Available [address], [address], 11/21/2022 13:05:41 11/20/19 23 11/21/2022 CBC (INCL UDES DIFF/ PLT) MCV 98.0 fL 80.0-1 00.0 normal Not Available [address], [address], 11/21/2022 13:05:41 11/20/19 23 11/21/2022 CBC (INCL UDES DIFF/ PLT) MCH 35.4 pg 27.0-3 3.0 high Not Available [facility] [address], [address], 11/21/2022 13:05:41 11/20/19 23 11/21/2022 CBC (INCL UDES DIFF/ PLT) MCHC 36.1 g/dL 32.0-3 6.0 high Not Available [employer] [address], [address], 11/21/2022 13:05:41 11/20/19 23 11/21/2022 CBC (INCL UDES DIFF/ PLT) RDW 12.0 % 11.0-1 5.0 normal Not Available [address], [address], 11/21/2022 13:05:41 11/20/19 23 11/21/2022 CBC (INCL UDES DIFF/ PLT) platelet count 238 thous and/u L 140-40 0 normal Not Available [address], [address], 11/21/2022 13:05:41 11/20/19 23 11/21/2022 CBC (INCL UDES DIFF/ PLT) MPV 11.8 fL 7.5-12 .5 normal Not Available [address], [address], 11/21/2022 13:05:41 11/20/19 23 11/21/2022 CBC (INCL UDES DIFF/ PLT) absolute neutrophils 2104 cells /uL 1500-7 800 normal Not Available [address], [address], 11/21/2022 13:05:41 11/20/19 23 11/21/2022 CBC (INCL UDES DIFF/ PLT) absolute lymphocytes 1356 cells /uL 850-39 00 normal Not Available [address], [address], 11/21/2022 13:05:41 11/20/19 23 11/21/2022 CBC (INCL UDES DIFF/ PLT) absolute monocytes 420 cells /uL 200-95 0 normal Not Available [address], [address], 11/21/2022 13:05:41 11/20/19 23 11/21/2022 CBC (INCL UDES DIFF/ PLT) absolute eosinophils 80 cells /uL 15-500 normal Not Available [address], [address], 11/21/2022 13:05:41 11/20/19 23 11/21/2022 CBC (INCL UDES DIFF/ PLT) absolute basophils 40 cells /uL 0-200 normal Not Available [address], [address], 11/21/2022 13:05:41 11/20/19 23 11/21/2022 CBC (INCL UDES DIFF/ PLT) neutrophils 52.6 % normal Not Available [address], [address], 11/21/2022 13:05:41 11/20/19 23 11/21/2022 CBC (INCL UDES DIFF/ PLT) lymphocytes 33.9 % normal Not Available [address], [address], 11/21/2022 13:05:41 11/20/19 23 11/21/2022 CBC (INCL UDES DIFF/ PLT) monocytes 10.5 % normal Not Available [address], [address], 11/21/2022 13:05:41 11/20/19 23 11/21/2022 CBC (INCL UDES DIFF/ PLT) eosinophils 2.0 % normal Not Available [address], [address], 11/21/2022 13:05:41 11/20/1911/21/2022 CBC (INCL UDES DIFF/ PLT) basophils 1.0 % normal Not Available [address], [address], 11/21/2022 13:05:41 12/11/19 23 12/12/2022 LIPID PANEL , STAND BARRON cholesterol, total 157 mg/dL <200 normal Not Available [address], [place], [address], 12/12/2022 12:40:29 12/11/1912/12/2022 LIPID PANEL , STAND BARRON HDL cholesterol 82 mg/dL > or = 50 normal Not Available [facility] [address] [place], [address], 12/12/2022 12:40:29 12/11/1912/12/2022 LIPID PANEL , STAND BARRON triglyceride s 44 mg/dL <150 normal Not Available [facility] [address] [place], [address], 12/12/2022 12:40:29 12/11/1912/12/2022 LIPID PANEL , STAND [...] com/f aq/FA Q164) Not Available [facility] [address] [address], [place], [address], 12/12/2022 12:40:29 12/11/1912/12/2022 LIPID PANEL , STAND BARRON chol/HDLC ratio 1.9 (calc ) <5.0 normal Not Available [facility] [address] [place], [address], 12/12/2022 12:40:29 12/11/1912/12/2022 LIPID PANEL , STAND BARRON non HDL cholesterol 75 mg/dL _(frank c) <130 normal For patie nts with diabe gavin plus 1 major ASCVD risk facto r, treat ing to a non-H DL-C goal of <100 mg/dL (LDL- C of <70 mg/dL ) is consi keesha brothers pejas charles optio n. Not Available [address] [address] [place], [address], 12/12/2022 12:40:29 12/11/1912/12/2022 ALBUM IN, RANDO M URINE W/CRE ATINI NE creatinine, random urine 207 mg/dL 20-275 normal Not Available [address] [address] [address], [place], [address], 12/12/2022 12:40:30 12/11/1912/12/2022 ALBUM IN, RANDO M URINE W/CRE ATINI NE albumin, urine 3.7 mg/dL see note: normal Refer ence Range : Refer ence Range Not estab lishe d Not Available [address], [place], [address], 12/12/2022 12:40:30 12/11/1912/12/2022 ALBUM IN, RANDO M [...] a diagn ostic categ ory. Not Available [address] [address] [place], [address], 12/12/2022 12:40:30 12/11/1912/12/2022 HIV 1/2 ANTIG EN/AN [...] matio n pleas e refer to http: //[facility] teo balbuena stdia gnost ics.c om/fa q/FAQ 106 (This link is being provi ded for infor matio nal/ educa miriam l purpo ses only. ) The perfo rmanc e of this assay has not been clini uriah valid ated in patie nts less than 2 years old. Not Available [facility] [address] [place], [address], 12/12/2022 12:40:31 12/11/1912/12/2022 COMPR EHENS ETHAN METAB OLIC PANEL glucose 83 mg/dL 65-99 normal Fasti ng refer ence inter wilbur Not Available [facility] [address] [place], [address], 12/12/2022 12:40:31 12/11/1912/12/2022 COMPR EHENS ETHAN METAB OLIC PANEL urea nitrogen (BUN) 11 mg/dL 7-25 normal Not Available [address] [address] [place], [address], 12/12/2022 12:40:31 12/11/1912/12/2022 COMPR EHENS ETHAN METAB OLIC PANEL creatinine 0.68 mg/dL 0.50-0 .99 normal Not Available [address] [address] [place], [address], 12/12/2022 12:40:31 12/11/1912/12/2022 COMPR EHENS ETHAN METAB OLIC PANEL eGFR 109 mL/mi n/1.7 3m2 > or = 60 normal Not Available [address], [address], 12/12/2022 12:40:31 12/11/1912/12/2022 COMPR EHENS ETHAN METAB OLIC PANEL BUN/creatini ne ratio SEE NOTE: (calc ) 6-22 Not Repor catherine: BUN and Creat inine are withi n refer ence range . Not Available [address], [address], 12/12/2022 12:40:31 12/11/1912/12/2022 COMPR EHENS ETHAN METAB OLIC PANEL sodium 138 mmol/ L 135-14 6 normal Not Available [address] [address] [place], [address], 12/12/2022 12:40:31 12/11/1912/12/2022 COMPR EHENS ETHAN METAB OLIC PANEL potassium 3.9 mmol/ L 3.5-5. 3 normal Not Available [address], [address], 12/12/2022 12:40:31 12/11/1912/12/2022 COMPR EHENS ETHAN METAB OLIC PANEL chloride 103 mmol/ L 98-110 normal Not Available [address] [place], [address], 12/12/2022 12:40:31 12/11/1912/12/2022 COMPR EHENS ETHAN METAB OLIC PANEL carbon dioxide 26 mmol/ L 20-32 normal Not Available [address], [address], 12/12/2022 12:40:31 12/11/1912/12/2022 COMPR EHENS ETHAN METAB OLIC PANEL calcium 9.1 mg/dL 8.6-10 .2 normal Not Available [address], [address], 12/12/2022 12:40:31 12/11/1912/12/2022 COMPR EHENS ETHAN METAB OLIC PANEL protein, total 7.0 g/dL 6.1-8. 1 normal Not Available [address], [address], 12/12/2022 12:40:31 12/11/1912/12/2022 COMPR EHENS ETHAN METAB OLIC PANEL albumin 4.3 g/dL 3.6-5. 1 normal Not Available [address], [address], 12/12/2022 12:40:31 12/11/1912/12/2022 COMPR EHENS ETHAN METAB OLIC PANEL globulin 2.7 g/dL_ (calc ) 1.9-3. 7 normal Not Available [address], [address], 12/12/2022 12:40:31 12/11/1912/12/2022 COMPR EHENS ETHAN METAB OLIC PANEL albumin/glob ulin ratio 1.6 (calc ) 1.0-2. 5 normal Not Available [address], [address], 12/12/2022 12:40:31 12/11/1912/12/2022 COMPR EHENS ETHAN METAB OLIC PANEL bilirubin, total 1.1 mg/dL 0.2-1. 2 normal Not Available [address], [address], 12/12/2022 12:40:31 12/11/1912/12/2022 COMPR EHENS ETHAN METAB OLIC PANEL alkaline phosphatase 136 U/L 31-125 high Not Available [facility] [address] [address] [place], [address], 12/12/2022 12:40:31 12/11/1912/12/2022 COMPR EHENS ETHAN METAB OLIC PANEL AST 66 U/L 10-35 high Not Available [address], [address], 12/12/2022 12:40:31 12/11/1912/12/2022 COMPR EHENS ETHAN METAB OLIC PANEL ALT 92 U/L 6-29 high Not Available [address], [address], 12/12/2022 12:40:31 12/11/1912/12/2022 CBC (INCL UDES DIFF/ PLT) white blood cell count 4.0 thous and/u L 3.8-10 .8 normal Not Available [address], [address], 12/12/2022 12:40:32 12/11/1912/12/2022 CBC (INCL UDES DIFF/ PLT) red blood cell count 4.15 josh on/uL 3.80-5 .10 normal Not Available [address], [address], 12/12/2022 12:40:32 12/11/1912/12/2022 CBC (INCL UDES DIFF/ PLT) hemoglobin 13.5 g/dL 11.7-1 5.5 normal Not Available [address], [address], 12/12/2022 12:40:32 12/11/1912/12/2022 CBC (INCL UDES DIFF/ PLT) hematocrit 40.6 % 35.0-4 5.0 normal Not Available [address], [address], 12/12/2022 12:40:32 12/11/1912/12/2022 CBC (INCL UDES DIFF/ PLT) MCV 97.8 fL 80.0-1 00.0 normal Not Available [address], [address], 12/12/2022 12:40:32 12/11/1912/12/2022 CBC (INCL UDES DIFF/ PLT) MCH 32.5 pg 27.0-3 3.0 normal Not Available [address], [address], 12/12/2022 12:40:32 12/11/1912/12/2022 CBC (INCL UDES DIFF/ PLT) MCHC 33.3 g/dL 32.0-3 6.0 normal Not Available [address], [address], 12/12/2022 12:40:32 12/11/1912/12/2022 CBC (INCL UDES DIFF/ PLT) RDW 12.2 % 11.0-1 5.0 normal Not Available [address], [address], 12/12/2022 12:40:32 12/11/1912/12/2022 CBC (INCL UDES DIFF/ PLT) platelet count 199 thous and/u L 140-40 0 normal Not Available [address], [address], 12/12/2022 12:40:32 12/11/1912/12/2022 CBC (INCL UDES DIFF/ PLT) MPV 12.0 fL 7.5-12 .5 normal Not Available [address], [address], 12/12/2022 12:40:32 12/11/1912/12/2022 CBC (INCL UDES DIFF/ PLT) absolute neutrophils 2024 cells /uL 1500-7 800 normal Not Available [address], [address], 12/12/2022 12:40:32 12/11/1912/12/2022 CBC (INCL UDES DIFF/ PLT) absolute lymphocytes 1432 cells /uL 850-39 00 normal Not Available [address], [address], 12/12/2022 12:40:32 12/11/1912/12/2022 CBC (INCL UDES DIFF/ PLT) absolute monocytes 412 cells /uL 200-95 0 normal Not Available [address], [address], 12/12/2022 12:40:32 12/11/1912/12/2022 CBC (INCL UDES DIFF/ PLT) absolute eosinophils 92 cells /uL 15-500 normal Not Available [address], [address], 12/12/2022 12:40:32 12/11/1912/12/2022 CBC (INCL UDES DIFF/ PLT) absolute basophils 40 cells /uL 0-200 normal Not Available [address], [address], 12/12/2022 12:40:32 12/11/1912/12/2022 CBC (INCL UDES DIFF/ PLT) neutrophils 50.6 % normal Not Available [address], [address], 12/12/2022 12:40:32 12/11/1912/12/2022 CBC (INCL UDES DIFF/ PLT) lymphocytes 35.8 % normal Not Available [address], [address], 12/12/2022 12:40:32 12/11/1912/12/2022 CBC (INCL UDES DIFF/ PLT) monocytes 10.3 % normal Not Available [address], [address], 12/12/2022 12:40:32 12/11/1912/12/2022 CBC (INCL UDES DIFF/ PLT) eosinophils 2.3 % normal Not Available [address], [address], 12/12/2022 12:40:32 12/11/1912/12/2022 CBC (INCL UDES DIFF/ PLT) basophils 1.0 % normal Not Available [address], [address], 12/12/2022 12:40:32 04/20/19 24 04/23/2023 ALBUM IN, RANDO M URINE W/CRE ATINI NE creatinine, random urine 384 mg/dL 20-275 high Not Available [address], [address], 04/23/2023 05:30:08 04/20/19 24 04/23/2023 ALBUM IN, RANDO M URINE W/CRE ATINI NE albumin, urine 10.6 mg/dL see note: normal Refer ence Range : Refer ence Range Not estab lishe d Not Available [address], [address], 04/23/2023 05:30:08 04/20/19 24 04/23/2023 ALBUM IN, [...] a diagn ostic categ ory. Not Available [address], [address], 04/23/2023 05:30:08 04/20/19 24 04/23/2023 TSH+F REE T4 TSH 1.27 mIU/L normal Refer ence Range > or = 20 Years 0.40- 4.50 Pregn dann Range s First trime ster 0.26- 2.66 Secon d trime ster 0.55- 2.73 Third trime ster 0.43- 2.91 Not Available [address], [address], 04/23/2023 05:30:09 04/20/19 24 04/23/2023 TSH+F REE T4 T4, free 1.1 NG/dL 0.8-1. 8 normal Not Available [address], [address], 04/23/2023 05:30:09 04/20/19 24 04/23/2023 COMPR EHENS ETHAN METAB OLIC PANEL glucose 65 mg/dL 65-99 normal Fasti ng refer ence inter wilbur Not Available [address], [address], 04/23/2023 05:30:11 04/20/19 24 04/23/2023 COMPR EHENS ETHAN METAB OLIC PANEL urea nitrogen (BUN) 14 mg/dL 7-25 normal Not Available [address], [address], 04/23/2023 05:30:11 04/20/19 24 04/23/2023 COMPR EHENS ETHAN METAB OLIC PANEL creatinine 0.77 mg/dL 0.50-0 .99 normal Not Available [address], [address], 04/23/2023 05:30:11 04/20/19 24 04/23/2023 COMPR EHENS ETHAN METAB OLIC PANEL eGFR 96 mL/mi n/1.7 3m2 > or = 60 normal Not Available [address], [address], 04/23/2023 05:30:11 04/20/19 24 04/23/2023 COMPR EHENS ETHAN METAB OLIC PANEL BUN/creatini ne ratio SEE NOTE: (calc ) 6-22 Not Repor catherine: BUN and Creat inine are withi n refer ence range . Not Available [address], [address], 04/23/2023 05:30:11 04/20/19 24 04/23/2023 COMPR EHENS ETHAN METAB OLIC PANEL sodium 141 mmol/ L 135-14 6 normal Not Available [address], [address], 04/23/2023 05:30:11 04/20/19 24 04/23/2023 COMPR EHENS ETHAN METAB OLIC PANEL potassium 3.8 mmol/ L 3.5-5. 3 normal Not Available [address], [address], 04/23/2023 05:30:11 04/20/19 24 04/23/2023 COMPR EHENS ETHAN METAB OLIC PANEL chloride 103 mmol/ L 98-110 normal Not Available [address], [place], [address], 04/23/2023 05:30:11 04/20/19 24 04/23/2023 COMPR EHENS ETHAN METAB OLIC PANEL carbon dioxide 30 mmol/ L 20-32 normal Not Available [facility] [address], [address], 04/23/2023 05:30:11 04/20/19 24 04/23/2023 COMPR EHENS ETHAN METAB OLIC PANEL calcium 9.6 mg/dL 8.6-10 .2 normal Not Available [facility] [address], [address], 04/23/2023 05:30:11 04/20/19 24 04/23/2023 COMPR EHENS ETHAN METAB OLIC PANEL protein, total 7.0 g/dL 6.1-8. 1 normal Not Available [address], [address], 04/23/2023 05:30:11 04/20/19 24 04/23/2023 COMPR EHENS ETHAN METAB OLIC PANEL albumin 4.5 g/dL 3.6-5. 1 normal Not Available [address], [address], 04/23/2023 05:30:11 04/20/19 24 04/23/2023 COMPR EHENS ETHAN METAB OLIC PANEL globulin 2.5 g/dL_ (calc ) 1.9-3. 7 normal Not Available [facility] [address], [address], 04/23/2023 05:30:11 04/20/19 24 04/23/2023 COMPR EHENS ETHAN METAB OLIC PANEL albumin/glob ulin ratio 1.8 (calc ) 1.0-2. 5 normal Not Available [facility] [address], [address], 04/23/2023 05:30:11 04/20/19 24 04/23/2023 COMPR EHENS ETHAN METAB OLIC PANEL bilirubin, total 1.0 mg/dL 0.2-1. 2 normal Not Available [address], [address], 04/23/2023 05:30:11 04/20/19 24 04/23/2023 COMPR EHENS ETHAN METAB OLIC PANEL alkaline phosphatase 122 U/L 31-125 normal Not Available [address], [address], 04/23/2023 05:30:11 04/20/19 24 04/23/2023 COMPR EHENS ETHAN METAB OLIC PANEL AST 78 U/L 10-35 high Not Available [address], [address], 04/23/2023 05:30:11 04/20/19 24 04/23/2023 COMPR EHENS ETHAN METAB OLIC PANEL ALT 93 U/L 6-29 high Not Available [address], [address], 04/23/2023 05:30:11 04/20/19 24 04/23/2023 URINA LYSIS , COMPL ETE W/REF YESSI TO CULTU RE color DARK YELLOW yellow normal Not Available [address], [address], 04/23/2023 05:30:12 04/20/19 24 04/23/2023 URINA LYSIS , COMPL ETE W/REF YESSI TO CULTU RE appearance CLOUDY clear abnormal Not Available [address], [address], 04/23/2023 05:30:12 04/20/19 24 04/23/2023 URINA LYSIS , COMPL ETE W/REF YESSI TO CULTU RE specific gravity 1.021 1.001- 1.035 normal Not Available [address], [address], 04/23/2023 05:30:12 04/20/19 24 04/23/2023 URINA LYSIS , COMPL ETE W/REF YESSI TO CULTU RE pH 6.0 5.0-8. 0 normal Not Available [address], [address], 04/23/2023 05:30:12 04/20/19 24 04/23/2023 URINA LYSIS , COMPL ETE W/REF YESSI TO CULTU RE glucose NEGATI VE negati ve normal Not Available [address], [address], 04/23/2023 05:30:12 04/20/19 24 04/23/2023 URINA LYSIS , COMPL ETE W/REF YESSI TO CULTU RE bilirubin NEGATI VE negati ve normal Not Available [address], [address], 04/23/2023 05:30:12 04/20/19 24 04/23/2023 URINA LYSIS , COMPL ETE W/REF YESSI TO CULTU RE ketones TRACE negati ve abnormal Not Available [address], [address], 04/23/2023 05:30:12 04/20/19 24 04/23/2023 URINA LYSIS , COMPL ETE W/REF YESSI TO CULTU RE occult blood 3+ negati ve abnormal Not Available [facility] [address] [place], [address], 04/23/2023 05:30:12 04/20/19 24 04/23/2023 URINA LYSIS , COMPL ETE W/REF YESSI TO CULTU RE protein 1+ negati ve abnormal Not Available [facility] [address], [address], 04/23/2023 05:30:12 04/20/19 24 04/23/2023 URINA LYSIS , COMPL ETE W/REF YESSI TO CULTU RE nitrite NEGATI VE negati ve normal Not Available [address], [address], 04/23/2023 05:30:12 04/20/19 24 04/23/2023 URINA LYSIS , COMPL ETE W/REF YESSI TO CULTU RE leukocyte esterase TRACE negati ve abnormal Not Available [address], [address], 04/23/2023 05:30:12 04/20/19 24 04/23/2023 URINA LYSIS , COMPL ETE W/REF YESSI TO CULTU RE WBC 0-5 /hpf < or = 5 normal Not Available [address], [address], 04/23/2023 05:30:12 04/20/19 24 04/23/2023 URINA LYSIS , COMPL ETE W/REF YESSI TO CULTU RE RBC > OR = 60 /hpf < or = 2 abnormal Not Available [address], [address], 04/23/2023 05:30:12 04/20/19 24 04/23/2023 URINA LYSIS , COMPL ETE W/REF YESSI TO CULTU RE squamous epithelial cells 0-5 /hpf < or = 5 Not Available [address], [address], 04/23/2023 05:30:12 04/20/19 24 04/23/2023 URINA LYSIS , COMPL ETE W/REF YESSI TO CULTU RE bacteria FEW /hpf none seen abnormal Not Available [address], [address], 04/23/2023 05:30:12 04/20/19 24 04/23/2023 URINA LYSIS , COMPL ETE W/REF YESSI TO CULTU RE hyaline cast NONE SEEN /lpf none seen normal Not Available [facility] [address] [address] [place], [address], 04/23/2023 05:30:12 04/20/19 24 04/23/2023 URINA LYSIS , COMPL ETE W/REF YESSI TO CULTU RE reflexive urine culture CULTU RE INDIC ATED - RESUL TS TO FOLLO W Not Available [facility] [address] [place], [address], 04/23/2023 05:30:12 04/20/19 24 04/23/2023 URINA LYSIS , COMPL ETE W/REF YESSI TO CULTU RE culture, urine, routine SEE NOTE CULTU RE, URINE , ROUTI NE Micro Numbe r: [id number] Test Statu s: Final Speci men [...] Cultu re Trans port Tube. Not Available [address], [address], 04/23/2023 05:30:12 04/20/19 24 04/23/2023 CBC (INCL UDES DIFF/ PLT) (REFL ) white blood cell count 3.3 thous and/u L 3.8-10 .8 low Not Available [facility] [address] [address] [place], [address], 04/23/2023 05:30:13 04/20/19 24 04/23/2023 CBC (INCL UDES DIFF/ PLT) (REFL ) red blood cell count 4.12 josh on/uL 3.80-5 .10 normal Not Available [facility] [address] [place], [address], 04/23/2023 05:30:13 04/20/19 24 04/23/2023 CBC (INCL UDES DIFF/ PLT) (REFL ) hemoglobin 13.1 g/dL 11.7-1 5.5 normal Not Available [address], [address], 04/23/2023 05:30:13 04/20/19 24 04/23/2023 CBC (INCL UDES DIFF/ PLT) (REFL ) hematocrit 39.4 % 35.0-4 5.0 normal Not Available [address], [address], 04/23/2023 05:30:13 04/20/19 24 04/23/2023 CBC (INCL UDES DIFF/ PLT) (REFL ) MCV 95.6 fL 80.0-1 00.0 normal Not Available [address], [address], 04/23/2023 05:30:13 04/20/19 24 04/23/2023 CBC (INCL UDES DIFF/ PLT) (REFL ) MCH 31.8 pg 27.0-3 3.0 normal Not Available [address], [address], 04/23/2023 05:30:13 04/20/19 24 04/23/2023 CBC (INCL UDES DIFF/ PLT) (REFL ) MCHC 33.2 g/dL 32.0-3 6.0 normal Not Available [address], [address], 04/23/2023 05:30:13 04/20/19 24 04/23/2023 CBC (INCL UDES DIFF/ PLT) (REFL ) RDW 12.4 % 11.0-1 5.0 normal Not Available [address], [address], 04/23/2023 05:30:13 04/20/19 24 04/23/2023 CBC (INCL UDES DIFF/ PLT) (REFL ) platelet count 203 thous and/u L 140-40 0 normal Not Available [address], [address], 04/23/2023 05:30:13 04/20/19 24 04/23/2023 CBC (INCL UDES DIFF/ PLT) (REFL ) MPV 11.3 fL 7.5-12 .5 normal Not Available [address], [address], 04/23/2023 05:30:13 04/20/19 24 04/23/2023 CBC (INCL UDES DIFF/ PLT) (REFL ) absolute neutrophils 1607 cells /uL 1500-7 800 normal Not Available [address], [address], 04/23/2023 05:30:13 04/20/19 24 04/23/2023 CBC (INCL UDES DIFF/ PLT) (REFL ) absolute lymphocytes 1208 cells /uL 850-39 00 normal Not Available [address], [address], 04/23/2023 05:30:13 04/20/19 24 04/23/2023 CBC (INCL UDES DIFF/ PLT) (REFL ) absolute monocytes 356 cells /uL 200-95 0 normal Not Available [address], [address], 04/23/2023 05:30:13 04/20/19 24 04/23/2023 CBC (INCL UDES DIFF/ PLT) (REFL ) absolute eosinophils 99 cells /uL 15-500 normal Not Available [address], [address], 04/23/2023 05:30:13 04/20/19 24 04/23/2023 CBC (INCL UDES DIFF/ PLT) (REFL ) absolute basophils 30 cells /uL 0-200 normal Not Available [address], [address], 04/23/2023 05:30:13 04/20/19 24 04/23/2023 CBC (INCL UDES DIFF/ PLT) (REFL ) neutrophils 48.7 % normal Not Available [address], [address], 04/23/2023 05:30:13 04/20/19 24 04/23/2023 CBC (INCL UDES DIFF/ PLT) (REFL ) lymphocytes 36.6 % normal Not Available [address], [address], 04/23/2023 05:30:13 04/20/19 24 04/23/2023 CBC (INCL UDES DIFF/ PLT) (REFL ) monocytes 10.8 % normal Not Available [address], [address], 04/23/2023 05:30:13 04/20/19 24 04/23/2023 CBC (INCL UDES DIFF/ PLT) (REFL ) eosinophils 3.0 % normal Not Available [address], [address], 04/23/2023 05:30:13 04/20/19 24 04/23/2023 CBC (INCL UDES DIFF/ PLT) (REFL ) basophils 0.9 % normal Not Available [address], [address], 04/23/2023 05:30:13 04/20/19 24 04/23/2023 T3, FREE T3, free 3.5 pg/mL 2.3-4. 2 normal Not Available [address], [address], 04/23/2023 05:30:13 04/27/19 24 04/28/2023 HCG, TOTAL [...] appro suzanne by the FDA or the [facility] er of the assay . Not Available [facility] [address] [address] [place], [address], 04/28/2023 04:15:55 07/19/1907/19/2023 qamar metry testi ng* [facility]rometry [facility] [address], [place], [address], 07/13/2023 18:33:42 01/05/2001/06/2024 LIPID PANEL , STAND BARRON cholesterol, total 167 mg/dL <200 normal Not Available [facility] [address] [address] [place], [address], 01/06/2024 03:32:50 01/05/20 24 01/06/2024 LIPID PANEL , [place]AND [place] HDL cholesterol 84 mg/dL > or = 50 normal Not Available [facility] [address] [address] [place], [address], 01/06/2024 03:32:50 01/05/20 24 01/06/2024 LIPID PANEL , [place]AND [place] triglyceride s 53 mg/dL <150 normal Not Available [facility] [address] [address] [place], [address], 01/06/2024 03:32:50 01/05/20 24 01/06/2024 LIPID PANEL , [place] LDL-choleste rol 70 mg/dL _(frank c) normal Refer ence range : <100 Tiburcio able range <100 mg/dL for prima ry preve ntion ; <70 mg/dL for patie nts with CHD or diabe tic patie nts with > or = 2 CHD risk facto rs. LDL-C is now calcu lated using the [facility] kins lino stark, which is a valid ated novel jim espinoza accur acy than the Fried anat equat ion in the estim ation of LDL-C . Beth stark SS et al. MALDONADO. 2013; 310(1 9): 2061- 2068 (http ://ed ucati on.Qu estDi jacinta tics. com/f aq/FA Q164) Not Available [facility] [address] [address] [place], [address], 01/06/2024 03:32:50 01/05/2001/06/2024 LIPID PANEL , STAND BARRON chol/HDLC ratio 2.0 (calc ) <5.0 normal Not Available [facility] [address] [address] [place], [address], 01/06/2024 03:32:50 01/05/20 24 01/06/2024 LIPID PANEL , [place] non HDL cholesterol 83 mg/dL _(frank c) <130 normal For patie nts with diabe gavin plus 1 major ASCVD risk facto r, treat ing to a non-H DL-C goal of <100 mg/dL (LDL- C of <70 mg/dL ) is consi dered a thera pejas c optio n. Not Available [facility] [address] [address] [place], [address], 01/06/2024 03:32:50 05/21/19 CT ABD+p el wwo con [facility] [address] [facility] [address] [place] [address] Orderi ng Provid er: TRISTIN DE LEON INDICA TION: Elevat ed liver enzyme [...] pneumo bilia as above. Referr ed By: TIRSTIN DE LEON Electr onical ly Signed By: Dewayne Gay MD on 11:48 PM Interp reted By: Dewayne Gay MD, 11:40 PM [email or web address] [facility]? S Hospital 1 [facility], [place], [address], 07/13/2023 18:41:07 05/27/19 24 US, abdom en, limit ed [facility] [place] [address] Orderi ng Provid er: TRISTIN DE LEON [...] By: Wilber Easley MD, 05/27/19 1:[address]? [address], [place], [address], 07/13/2023 18:41:07 07/13/19 qamar metry testi ng* No observ ation record ed. [address], [facility] [address], [place], [address], 12/15/2023 13:53:23 12/15/19 24 12/15/2023 elect rocar diogr am No observ ation record ed. [email or web address], [facility] [address], [place], [address], 12/15/2023 15:12:32 12/18/1912/15/2023 elect rocar diogr am No observ ation record ed. [email or web address] [facility], [facility] [address], [place], [address], 12/19/2023 11:05:43 03/03/19 25 03/02/2024 XR, chest , 2 view No observ ation record ed. [facility] [address], [place], [address], 03/03/2024 20:44:14 Result Notes None recorded. Problems Name Problem SNOMED Code Status Onset Date Resolution Date Notes Provider Name and Address Organization Details Recorded Time Asthma 219450199 Active 2017 [address]ra, [facility] 8 18:12:06 Essential hypertension 71039844 Active 2017 [address], [facility] 8 18:12:48 History of varicose veins 059390070 Active [address] [facility] 8 18:13:14 Attention deficit hyperactivity disorder, predominantly inattentive type 69880828 Active 2022 Tristin De Leon MD [address], [place], [address], [facility] 3 17:05:21 COVID-19 383627829 Active 2022 Trsitin De Leon MD [address], [place], [address], [facility] 3 21:13:01 Obsessive-comp ulsive disorder 112322136 Active 2022 Tristin De Leon MD [address], [place], [address], [facility] 3 17:57:42 Chronic insomnia 562456227 Active 2022 Tristin De Leon MD [address], [place], [address], [facility] 3 17:43:24 Loss of hair 406959935 Active 2022 Tristin De Leon MD [address], [place], [address], [facility] 3 17:51:51 Liver enzymes level above reference range 965631506 Active 2022 Tristin De Leon MD [address], [place], [address], [facility] 17:20:48 Problem Notes None recorded. Procedures Surgical History Date Name Laterality Status Provider Name and Address Organization Details Recorded Time 09/22/19 14 placement of stent in coronary artery completed Tristin De Leon MD [address], [place], [address], [facility] 07/27/2020 20:14:[address] [facility] 11/10/2017 09:41:[address] [facility] 11/10/2017 09:41:[address] [facility] 11/10/2017 09:42:[address] [facility] 11/10/2017 09:42:39 Imaging Results Imaging Date Name Status LastModified by Organization Details LastModified Time 05/21/2023 CT ABD+pel wwo con completed [address]? [address], [address], 07/13/2023 18:41:07 05/27/2023 US, abdomen, limited completed [address]? [address], [address], 07/13/2023 18:41:07 07/13/2023 spirometry testing* completed [address], [facility] [address], [place], [address], 12/15/2023 13:53:23 12/15/2023 electrocardiogram completed [email or web address] [employer] [facility], [facility] [address], [place], [address], 12/15/2023 15:12:32 12/15/2023 electrocardiogram completed [email or web address] [facility], [facility] [address], [place], [address], 12/19/2023 11:05:43 03/02/2024 XR, chest, 2 view completed [facility] [address], [place], [address], 03/03/2024 20:44:14 Procedure Notes None recorded. Medical Equipment None [...] 1 tablet every day by oral route. active Not Available Not Available No t Available dextroamp hetamine- amphetami ne ER 20 mg 24hr capsule,e xtend release Take 1 capsule every day by oral route in the morning. active Not Available Not Available No t Available pantopraz ole 40 mg tablet,de layed release TAKE 1 TABLET BY MOUTH EVERY DAY 07/27 completed Not Available Not Available Not Available prednison e 50 mg tablet active Not Available Not Available Not Available losartan [...] III Not Available Not Available Not Available neomycin 3.5 mg/g-poly myxin B 10,000 unit/g-de xameth 0.1 % eye oint active Not Available Not Available Not Available Lunesta [...] completed Not Available Not Available Not Available lotepredn ol etabonate 0.5 % eye gel drops INSTILL 1 DROP INTO EACH EYE THREE TIMES DAILY FOR 10 DAYS active Not Available Not Available No t Available Spiriva Respimat 2.5 mcg/actua tion solution [...] Details Last Updated DateTime 3 175.26 cm 72 /min 16 /min 97.7 [degF] 21814.5 2 g 123 mm[Hg] 76 mm[Hg] Pennie Rosas [facility] 3 17:13:18 Date Recorded Body mass index (BMI) Provider Name and Address Organization Details Last Updated DateTime 09/29/2022 20.8 kg/m2 Tristin De Leon MD [address] [facility] [address], [place], [address], [facility] 09/29/2022 17:55:17 Date Recorded Body height Heart rate Respiratory rate Body temperature Body mass index (BMI) Body weight Systolic blood pressure Diastolic blood pressure Provider Name and Address Organization Details Last Updated DateTime 3 175.26 cm 71 /min 16 /min 98.2 [degF] 20.8 kg/m2 88371.5 2 g 135 mm[Hg] 71 mm[Hg] Angle Mcmillan [facility] 3 17:05:47 Date Recorded Body height Heart rate Respiratory rate Body temperature Body mass index (BMI) Body weight Systolic blood pressure Diastolic blood pressure Provider Name and Address Organization Details Last Updated DateTime 4 175.26 cm 72 /min 16 /min 97.6 [degF] 20.5 kg/m2 54247.3 4 g 131 mm[Hg] 65 mm[Hg] Pennie Rosas [facility] 4 16:30:09 Date Recorded Body height Heart rate Respiratory rate Body temperature Body mass index (BMI) Body weight Systolic blood pressure Diastolic blood pressure Provider Name and Address Organization Details Last Updated DateTime 175.26 cm 65 /min 16 /min 97.5 [degF] 19.8 kg/m2 44734.3 8 g 132 mm[Hg] 86 mm[Hg] Pennie Rosas [facility] 17:42:04 Date Recorded Body height Body mass index (BMI) Body weight Body temperature Respiratory rate Heart rate Provider Name and Address Organization Details Last Updated DateTime 175.26 cm 20.2 kg/m2 66714.1 5 g 97.7 [degF] 16 /min 80 /min Yi Rojas [facility] 12:50:34 Date Recorded Systolic blood pressure Diastolic blood pressure Provider Name and Address Organization Details Last Updated DateTime 12/15/2023 141 mm[Hg] 79 mm[Hg] Tristin De Leon MD [address] [facility] [address], [place], [address], [facility] 12/15/2023 13:43:18 Social History Question Answer Notes LastModified by Organizat ion Details LastModified Time Tobacco Smoking Status Never [email or web address]2017 09:43:55 What Is Your Level Of Alcohol Consumption? Occasional [email or web address] Information not available 11/10/2017 What Is Your Level Of Caffeine Consumption? Moderate 1/2 Soda Per Day [email or web address] Information not available 04/06/2023 How Much Tobacco Do You Chew? None Information not available 07/27/2020 Which Illicit Or Recreational Drugs Have You Used? 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 07/27/2020 19:13:16 COVID-19, mRNA, LNP-S, PF, 30 mcg/0.3 mL dose 07/07/[address] [facility] 07/27/2020 19:13:25 Past Encounters Encounter ID Performer Location Encounter Start Date Encounter Closed Date Diagnosis/Indication Diagnosis SNOMED-CT Code Diagnosis ICD10 Code Diagnosis Note [id number] Tristin De Leon MD [facility], [facility] [address] [place] [address] 11/15/2017 16:11:25 11/15/2017 19:20:36 Benign essential hypertension 1659536 I10 -- Changed from ramipril, metoprolol --> to nifedipine 30 mg daily ( by cardiologi st Dr. Matt Armstrong III ) Fatigue 86121621 R53.83 Increased liver function 18307723 R94.5 K75.9 R79.9 Hyperlipid emia screening 806802886 Z13.220 Immunization refused [id number] Z28.20 -- will issue Tdap & Flu incase pt changes her mind. Screening for malignant neoplasm of breast [id number] Z12.31 Screening for malignant neoplasm of cervix [id number] Z12.4 [id number] Tristin De Leon MD [facility], [facility] [address] [place] [address] 12/13/2017 15:10:12/13/2017 17:00:21 Adult health examination 895335759 Z00.00 Fatigue 16974094 R53.83 Benign ess ential hypertension 9940095 I10 -- Changed from ramipril, metoprolol --> to nifedipine 30 mg daily ( by cardiologi st Dr. Matt Armstrong III ([phone]) Increased liver function 67291905 R94.5 K75.9 R79.9 -- follows w/ Dr Hager Immunization refused 275 015080 Z28.20 -- will issue Tdap & Flu incase pt changes her mind. Screening for malignant neoplasm of breast 122564700 Z12.31 Screening for malignant neoplasm of cervix 021384965 Z12.4 [id number] Tristin De Leon MD [employer] [address] [place] [address] 07/27/2020 18:13:24 07/27/2020 20:31:41 Fatigue 72628463 R53.83 -- Changed from ramipril, metoprolol --> to nifedipine 30 mg daily ( by cardiologi st Dr. Matt Armstrong III ) Increased liver function 59797223 R94.5 K75.9 R79.9 -- followed w/ Dr Hager Immunization refused 275 404013 Z28.20 -- will issue Tdap & Flu incase pt changes her mind. Screening for malignant neoplasm of breast 172270006 Z12. -- pt agrees to have her Manager Engagement Dr Ahsan Street orders and manages her mammogram Screening for malignant neoplasm of cervix 160999462 Z12.4 Hepatitis C screening 41 2550906 Z11.59 -- tested negative for Hep C on 07/26/19 Essential hypertension 77302696 I10 Dyspnea on exertion 6084 5006 R06.09 Serum iron above reference range 719730275 R79.0 Lymphadenopathy 26057644 R59.0 (x 2 months since May 2020) -- see photo [id number] Tristin De Leon MD [employer] [address] [place] [address] 07/07/2021 14:35:13 07/07/2021 16:47:48 Essential hypertension 53696336 I10 - BP uncontroll ed; will increase Amlodipine from 2.5 mg to 5 mg daily-- EKG done on 07/29/20 Dyspnea on exertion 6084 5006 R06.09 -- cardiac echo by Cardiologi st Dr Matt Armstrong III ) in 07/2020 showed EF of 50% Fatigue 89472736 R53.83 -- monitored by cardiologi st Dr. Matt Armstrong III )-- Home sleep study done on 01/30/18 Lymphadenopathy 73631810 R59.0 (x 2 months since May 2020) -- see photo-- pt saw Gen Surgeon and was told to f/u with him if veronica increasing sx Serum iron above reference range 569638374 R79.0 Increased liver function 92658471 R94.5 K75.9 R79.9 -- follow up w/ Dr Hager as directed Dr Hager Hepatitis C screening 41 4012841 Z11.59 -- tested negative for Hep C on 07/26/19 Immunization refused 275 250981 Z28.20 -- will issue Tdap & Flu incase pt changes her mind. Screening for malignant neoplasm of breast 656124312 Z12.31 -- pt agrees to have her Manager Engagement Dr Ahsan Street orders and manages her mammogram Screening for malignant neoplasm of cervix 817251276 Z12.4 Screening for malignant neoplasm of colon 694566896 Z12.11 -- Pt will call with the name of the GI physician whom she wants to set up with. Acute stress disorder 67 479669 F43.0 -- will refer pt to Carlo Conte [id number] Tristin De Leon MD [facility], [facility] [address] [facility] [address] [place] [address] 01/25/2022 15:33:03 01/25/2022 18:13:45 Adult health examination 253828731 Z00.00 Essential hypertension 55450922 I10 - BP controlled ;-- EKG done on 07/29/20 Dyspnea on exertion 6084 5006 R06.09 -- cardiac echo by Cardiologi st Dr Matt Armstrong III ) in 07/2020 showed EF of 50% Fatigue 63261280 R53.83 -- monitored by cardiologi st Dr. Matt Armstrong III )-- Home sleep study done on 01/30/18 Lymphadenopathy 60429725 R59.0 (since May 2020) -- almost gone now -- see new photo (no longer visible and not always palpable)- - pt saw Gen Surgeon Dr Amador Ochoa and was told to f/u with him if veronica increasing sx Serum iron above reference range 103101821 R79.0 Increased liver function 24040243 R94.5 K75.9 R79.9 -- follow up w/ Dr Hager as directed Dr Hager Screening for malignant neoplasm of colon 066420230 Z12.11 -- Pt will call with the name of the GI physician whom she wants to set up with. Hepatitis C screening 41 4687628 Z11.59 -- tested negative for Hepatitis C on 07/26/19 Immunization refused 275 385835 Z28.20 Screening for malignant neoplasm of breast 292963659 Z12.31 -- pt agrees to have her Manager Engagement Dr Ahsan Street orders and manages her mammogram Screening for malignant neoplasm of cervix 915934006 Z12.4 Acute stress disorder 67 075340 F43.0 -- pt saw Carlo Sheffield and felt improved; Body mass index 20-24 - normal 577902666 Z68.22 -- pt is in the healthy weight category w/ a BMI 22.3 (ideal is between 20-25) [id number] Tristin De Leon MD [facility] [address] [place] [address] 05/24/2022 15:38:07 05/24/2022 17:24:33 Attention deficit hyperactivity disorder, predominantly inattentive type 82470491 F90.0 (pt remembered that her pediatrici an told her mom that pt may have ADHD) [id number] Tristin De Leon MD [facility] [address] [place] [address] 06/10/2022 11:50:43 06/10/2022 13:57:24 Attention deficit hyperactivity disorder, predominantly inattentive type 27295494 F90.0 (pt remembered that her pediatrici an told her mom that pt may have ADHD) -- Pt reports she is focusing better and completing task; outlook on things seem brighter; no mood swings.-- no anxiety/pa lpitations or n/v, rash/swell ing/dizzin ess, confusion, SI./HI, or JACQUES. [id number] Tristin De Leon MD [facility] [address] [place] [address] 09/29/2022 16:03:20 09/29/2022 18:12:26 Attention deficit hyperactivity disorder, predominantly inattentive type 14607123 F90.0 (pt remembered that her pediatrici an told her mom that pt may have ADHD) -- Pt reports she is focusing better and completing task; outlook on things seem brighter; no mood swings.-- no anxiety/pa lpitations or n/v, rash/swell ing/dizzin ess, confusion, SI./HI, or JACQUES.-- improved 80% since on Adderall-- pt attribute weight loss to going of steroids inhalers Essential hypertension 94380192 I10 - BP controlled ;-- EKG done on 07/29/20-- recheck labs on 11/29/22 Obsessive- compulsive disorder 640355241 F42.9 -- pt did not need Sertraline anymore Asthma 230457190 J45.90 9 -- no exacerbati on Body mass index 20-24 - normal 396912576 Z68.22 -- pt is in the healthy weight category w/ a BMI 22.3 (ideal is between 20-25) Hepatitis C screening 41 1875809 Z11.59 -- tested negative for Hepatitis C on 07/26/19 HIV screening 570636282 Z11.4 Active or passive immunization 886461542 Z23 Screening for malignant neoplasm of colon 101611315 Z12.11 -- Pt will call with the name of the GI physician whom she wants to set up with. Screening for malignant neoplasm of breast 766076722 Z12.31 -- pt agrees to have her Manager Engagement Dr Ahsan Street orders and manages her mammogram Gynecologi c examination 72937325 Z01.419 Hyperlipid emia screening 815156987 Z13.220 [id number] Tristin De Leon MD [facility] [address] [place] [address] 12/07/2022 15:32:15 12/07/2022 18:02:22 Attention deficit hyperactivity disorder, predominantly inattentive type 53118689 F90.0 (pt remembered that her pediatrici an told her mom that pt may have ADHD) -- Pt reports she is focusing better and completing task; outlook on things seem brighter; no mood swings.-- no anxiety/pa lpitations or n/v, rash/swell ing/dizzin ess, confusion, SI./HI, or JACQUES.-- improved 80% since on Adderall-- pt attribute weight loss to going of steroids inhalers Essential hypertension 52253050 I10 - BP controlled ;-- EKG done on 07/29/20-- recheck labs on 11/29/22 Asthma 845574420 J45.90 9 -- no exacerbati on Obsessive- compulsive disorder 564139486 F42.9 -- pt did not need Sertraline anymore-- still doing well Body mass index 20-24 - normal 043965104 Z68.22 -- pt is in the healthy weight category w/ a BMI 22.3 (ideal is between 20-25) Hyperlipid emia screening 469830775 Z13.220 Hepatitis C screening 41 5654894 Z11.59 -- tested negative for Hepatitis C on 07/26/19 HIV screening 716907662 Z11.4 Active or passive immunization 791587666 Z23 Screening for malignant neoplasm of colon 146150907 Z12.11 -- Pt will call with the name of the GI physician whom she wants to set up with. Screening for malignant neoplasm of breast 752166822 Z12.31 -- pt agrees to have her Manager Engagement Dr Ahsan Street orders and manages her mammogram Gynecologi c examination 70240181 Z01.419 Chronic insomnia 9680081 04 F51.04 Advised good sleep habits and patterns to include: 1. Setting a goal for at least 7 to 8 hours of sleep time per day. 2. Using the bed mainly for sleep and to go to bed only when tired. If unable to fall asleep after 30 minutes, patient should get out of bed but should not engage in any activity that requires sustained mental alertness. 3. Maintainin g a regular bedtime and wake-up time even on weekends or days off of work. 4. Avoiding excessive naps during the daytime. If a nap is necessary, limit it to no more than 10 minutes. 5. Minimizing environmen rashel noise, bright lights, and extremes in bedroom temperatur e. 6. Avoiding alcohol, caffeinate d beverages, and nicotine products for at least 6 hours prior to bedtime. 7. Avoiding strenuous exercise and large meals for at least 4 hours prior to bedtime. -- will issue Lunesta which can be habit forming Loss of hair 239401384 L 65.9 -- had covid twice; likely chronic Telogen Effluvium [id number] Tristin De Leon MD [facility] [employer] [facility], [facility] [address] [place] [address] 04/06/2023 15:35:54 04/06/2023 17:41:41 Attention deficit hyperactivity disorder, predominantly inattentive type 19090725 F90.0 (pt remembered that her pediatrici an told her mom that pt may have ADHD) -- Pt reports she is focusing better and completing task; outlook on things seem brighter; no mood swings.-- no anxiety/pa lpitations or n/v, rash/swell ing/dizzin ess, confusion, SI./HI, or JACQUES.-- improved 80% since on Adderall-- pt attribute weight loss to going of steroids inhalers Essential hypertension 73176481 I10 - BP controlled ;-- EKG done on 07/29/20-- recheck labs on 11/29/22 Asthma 878920228 J45.90 9 -- no exacerbati on Obsessive- compulsive disorder 240267289 F42.9 -- pt did not need Sertraline anymore-- still doing well Loss of hair 575298834 L 65.9 -- had covid twice; likely chronic Telogen Effluvium Body mass index 20-24 - normal 665468858 Z68.22 -- pt is in the healthy weight category w/ a BMI 20.5 (ideal is between 20-25) Hyperlipid emia screening 503989688 Z13.220 -- very good lipid panel on 12/10/22 Hepatitis C screening 41 5642989 Z11.59 -- tested negative for Hepatitis C on 07/26/19 HIV screening 943445166 Z11.4 -- tested negative for HIV on 12/10/22 Active or passive immunization 146240597 Z23 Screening for malignant neoplasm of colon 125606343 Z12.11 -- Pt will call with the name of the GI physician whom she wants to set up with. Screening for malignant neoplasm of breast 806253590 Z12.31 -- pt agrees to have her Manager Engagement Dr Ahsan Street orders and manages her mammogram Gynecologi c examination 56673098 Z01.419 Liver enzy mes level above reference range 916543496 R74.8 Right flank pain 3378179 09 R10.9 (lower) [id number] Tristin De Leon MD [facility] [employer] [facility] [address] [place] [address] 07/13/2023 16:09:32 07/13/2023 19:29:46 Attention deficit hyperactivity disorder, predominantly inattentive type 60470262 F90.0 (pt remembered that her pediatrici an told her mom that pt may have ADHD) -- Pt reports she is focusing better and completing task; outlook on things seem brighter; no mood swings.-- no anxiety/pa lpitations or n/v, rash/swell ing/dizzin ess, confusion, SI./HI, or JACQUES.-- improved 80% since on Adderall-- pt attribute weight loss to going of steroids inhalers Asthma 392470840 J45.90 9 -- no exacerbati on Essential hypertension 67359409 I10 - BP controlled ;-- EKG done on 07/29/20 Cough 67307645 R05.9 -- ? from Losartan [id number] Tristin De Leon MD [facility] [employer] [facility] [address] [place] [address] 12/15/2023 11:22:16 12/15/2023 14:07:26 Liver enzymes level above reference range 108661386 R74.8 Essential hypertension 86342988 I10 - BP uncontroll ed; increase Losartsn from 25 mg qd --> 1 pill every 12 hours-- EKG done 12/15/23 Attention deficit hyperactivity disorder, predominantly inattentive type 69697636 F90.0 (pt remembered that her pediatrici an told her mom that pt may have ADHD) -- Pt reports she is focusing better and completing task; outlook on things seem brighter; no mood swings.-- no anxiety/pa lpitations or n/v, rash/swell ing/dizzin ess, confusion, SI./HI, or JACQUES.-- improved 80% since on Adderall-- pt attribute weight loss to going of steroids inhalers Asthma 803253576 J45.90 9 -- no exacerbati on-- spirometry on 07/13/23 Active or passive immunization 557882355 Z23 -- pt does not want Flu shot Screening for malignant neoplasm of colon 522567451 Z12.11 -- Pt will call with the name of the GI physician whom she wants to set up with. Screening for malignant neoplasm of breast 271635839 Z12.31 -- pt agrees to have her Manager Engagement Dr Ahsan Street orders and manages her mammogram Gynecologi c examination 87215919 Z01.419 Screening for cardiovascular system disease 482375820 Z13.6 Health Concerns Section Related Observation LastModified by Organization Detai ls LastModified Time None Recorded Concern Status LastModified by Organization Details LastModified Time None Recorded Advance Directives Directive None Recorded Payers Encounter Date Sequence Insurance Name Policy Number Policy Babin Covered Member ID Babin Member ID Guarantor Name 09/29/2022 1 [facility] [id number] Paola V Mike [id number] Paola [employer] Mike 12/07/2022 1 [facility] [id number] Paola V Mike [id number] Paola V Mike 04/06/2023 1 [facility] [id number] Paola V Mike [id number] 2 Paola V Mike 07/13/2023 1 [facility] [id number] Paola V Mike [id number] Paola V Mike 12/15/2023 1 [facility] [id number] Paola V Mike [id number] 2 Paola V Mike Notes Date Note [...] symptoms, etc. Tristin De Leon MD [address], [place], [address], [facility] 09/29/2022 18:08:53 12/07/2022 text/html Pt comes in [...] symptoms, etc. Tristin De Leon MD [address] [facility] [address], [place], [address], [facility] 12/07/2022 18:00:20 04/06/2023 text/html Pt comes in [...] symptoms, etc. Tristin De Leon MD [address] [facility] [address], [place], [address], [facility] 04/06/2023 17:39:25 07/13/2023 text/html Pt comes in [...] symptoms, etc. Tristin De Leon MD [address] [facility] [address], [place], [address], [facility] 07/13/2023 18:41:17 12/15/2023 text/html Pt comes in for f/u of ^LFTs, Asthma, ADD and weight monitoring. Pt feels well and has no c/o. Pt has no new sx and no increasing sx. Patient denies any jaw or neck discomfort, left arm pain/left arm discomfort, chest discomfort/pain, diaphoresis, breathing symptoms/chest tightness, indigestion sx, n/v, any angina equivalent symptoms, etc. Tristin De Leon MD [address] [facility] [address], [place], [address], [facility] 12/15/2023 13:55:11 OBGyn Episode No OBEpisode recorded.
--- OUTSIDE RECORDS SUMMARY | 2024-03-10 02:17 | XMS_ITS | Encounter Summary ---
Author Organization [facility] Address [address] [place] [address] Care Team Providers Care Recovery Unit Operator Name Role Phone Tristin Ghotra MD Primary Care Provider [phone] Encounter Details Date Type Department Care Team (Late st Contact Info) Description 01/03/2022 Telephone [facility] Pulmonology [address] [place] [address] Kate Carrasco MD [address] [place] [address] [address] [place] [address] Social History Tobacco Use Types Packs/Day Years Used Date Smoking Tobacco: Never Alcohol Use Standard Drinks/Week Comments Yes 0 (1 standard drink = 0.6 oz pur e alcohol) Comments Unknown Sex and Gender Information Value Date Recorded Sex Assigned at Not on file Legal Sex Female 3:22 AM CLIMATE CHANGE ANALYST Gender Identity Female 06/27/2022 9:35 PM [...] on: 01/07/2022 12:51 PM Modules accepted: Orders ATE CHANGE ANALYST * Telephone Encounter - Mitra Marcial RN - 01/03/2022 4:23 PM CLIMATE CHANGE ANALYST Medication verified and sent to pharmacy Last Visit: 11/30/2021 Follow Up: 03/01/2022 ATE CHANGE ANALYST * Telephone Encounter - Uma Mckeon - 01/03/2022 3:18 PM CST Pt called asking for a 90 day prescription for Symbicort be sent to [facility] in [place]. ATE CHANGE ANALYST documented in this encounter Plan of Treatment [...] documented as of this encounter Care Teams Recovery Unit Operator Relationship Specialty Start Date End Date Tristin Ghotra MD [address] [facility] [address] [place] [address] PCP - General 12/07/18 documented as of this encounter
--- OUTSIDE RECORDS SUMMARY | 2024-03-10 02:17 | XMS_ITS | Encounter Summary ---
Author Organization [facility] Address [address] [place] [address] Care Team Providers Care Programming Intern Name Role Phone Unavailable Primary Care Provider Unavailabl e Encounter Details Date Type Department Care Team (Latest Contact Info) Description 04/10/2012 11:10 AM PHOTOFINISHING LABORATORY WORKER Hospital Encounter [facility] Edgar Hager MD [address] [place] [address] Acute pancreatitis; Abdominal pain Social History Tobacco Use Types Packs/Day Years Used Date Smoking Tobacco: Never Assessed Comments Unknown Sex and Gender Information Value Date Recorded Sex Assigned at Not on file Legal Sex Female 3:22 AM PHOTOFINISHING LABORATORY WORKER Gender Identity Female 06/27/2022 9:35 PM [...] CBC WITHOUT DIFFERENTIAL Routine 04/10/2012 11:15 AM PHOTOFINISHING LABORATORY WORKER BILIRUBIN, TOTAL AND DIRECT Routine 04/10/2012 11:15 AM PHOTOFINISHING LABORATORY WORKER LIPASE Routine 04/10/2012 11:15 AM PHOTOFINISHING LABORATORY WORKER AMYLASE Routine 04/10/2012 11:15 AM PHOTOFINISHING LABORATORY WORKER COMPREHENSIVE METABOLIC PANEL Routine 04/10/2012 11:15 AM PHOTOFINISHING LABORATORY WORKER documented in this encounter Results * (ABNORMAL) Comprehensive metabolic panel (04/10/2012 11:15 AM PHOTOFINISHING LABORATORY WORKER) Sodium 134(L) 135 - 145 mmol/L 04/10/2012 5:39 PM [facility] [employer] HISTORICAL RESULTS Potassium 3.6 3.3 - 5.1 mmol/L 04/10/2012 5:39 PM [facility] [employer] HISTORICAL RESULTS Chloride 99 96 - 108 mmol/L 04/10/2012 5:39 PM [facility] Carbon Dioxide 28 22 - 32 mmol/L 04/10/2012 5:39 PM PHOTOFINISHING LABORATORY WORKER [facility] [employer] [facility] HISTORICAL RESULTS Anion Gap 7 Glucose 66(L) 70 - 110 mg/dL BUN 7 6 - 20 mg/dL 04/10/2012 5:39 PM [facility] [employer] [facility] HISTORICAL RESULTS Creatinine 0.5 0.5 - 1.1 mg/dL 04/10/2012 5:39 PM PHOTOFINISHING LABORATORY WORKER [facility] [employer] [facility] HISTORICAL RESULTS Kidney Disease Stage > 90 mL/MIN 04/10/2012 5:39 PM PHOTOFINISHING LABORATORY WORKER [facility] [employer] [facility] HISTORICAL RESULTS Comment: NOTE; ??The GFR is [...] - 104 U/L 04/10/2012 11:1 5 AM PHOTOFINISHING LABORATORY WORKER 04/10/2012 12:20 PM PHOTOFINISHING LABORATORY WORKER us Edgar Hager MD LAB BLOOD ORDERABLES Final Resu lt [facility] HISTORICAL RESULTS * (ABNORMAL) CBC without differential (04/10/2012 11:15 AM PHOTOFINISHING LABORATORY WORKER) WBC 8.0 4.6 - 10.2 x10 3/ul [...] - 10.4 fl 04/10/2012 11:1 5 AM PHOTOFINISHING LABORATORY WORKER 04/10/2012 12:20 PM PHOTOFINISHING LABORATORY WORKER Edgar Hager MD LAB BLOOD ORDERABLES Final Resu lt [facility] HISTORICAL RESULTS * Lipase (04/10/2012 11:15 AM PHOTOFINISHING LABORATORY WORKER) Lipase 49 13 - 60 U/L 04/10/2012 11:1 5 AM PHOTOFINISHING LABORATORY WORKER 04/10/2012 12:20 PM PHOTOFINISHING LABORATORY WORKER Edgar Hager MD LAB BLOOD ORDERABLES Final Resu lt [facility] HISTORICAL RESULTS * Amylase (04/10/2012 11:15 AM PHOTOFINISHING LABORATORY WORKER) Amylase 78 28 - 100 U/L 04/10/2012 1:02 PM PHOTOFINISHING LABORATORY WORKER [facility] HISTORICAL RESULTS 04/10/2012 11:1 5 AM PHOTOFINISHING LABORATORY WORKER 04/10/2012 12:20 PM PHOTOFINISHING LABORATORY WORKER Result [facility] Edgar Hager MD LAB BLOOD ORDERABLES Final Resu lt [facility] [employer] HISTORICAL RESULTS * (ABNORMAL) Bilirubin, total and direct (04/10/2012 11:15 AM PHOTOFINISHING LABORATORY WORKER) Direct Bilirubin 0.82(H) 0.00 - 0.25 mg/dL 04/10/2012 1:02 PM PHOTOFINISHING LABORATORY WORKER [facility] [employer] HISTORICAL RESULTS 04/10/2012 11:1 5 AM PHOTOFINISHING LABORATORY WORKER 04/10/2012 12:20 PM PHOTOFINISHING LABORATORY WORKER Edgar Hager MD LAB BLOOD ORDERABLES Final Resu lt Performing Organization Address City/[facility]/ZIP Co de Phone Number [facility] [employer] HISTORICAL RESULTS documented in this encounter Visit Diagnoses Diagnosis Acute pancreatitis Abdominal pain Abdominal pain, unspecified site documented in this encounter
--- OUTSIDE RECORDS SUMMARY | 2024-03-10 02:17 | XMS_ITS | Encounter Summary ---
Author Organization [facility] Address [address] [place] [address] Care Team Providers Care Director Of Convention Services Name Role Phone Tristin Ghotra MD Primary Care Provider [phone] Reason for Visit * Reason Onset Date Comments Med Change Request 02/16/2022 Encounter Details Date Type Department Care Team (Late st Contact Info) Description 02/16/2022 Telephone [facility] Pulmonology [address] [place] [address] Sola Mendiola MA Med Change Request Social History Tobacco Use Types Packs/Day Years Used Date Smoking Tobacco: Never Alcohol Use Standard Drinks/Week Comments Yes 0 (1 standard drink = 0.6 oz pur e alcohol) Comments Unknown Sex and Gender Information Value Date Recorded Sex Assigned at Not on file Legal Sex Female 3:22 AM CHEMICAL LABORATORY TESTER Gender Identity Female 06/27/2022 9:35 PM CDT [...] Sola Mendiola MA - 02/16/2022 4:33 PM CHEMICAL LABORATORY TESTER Patient informed, sent Advair to pharmacy. ICAL LABORATORY TESTER * Telephone Encounter - Kate Carrasco MD - 02/16/2022 3:28 PM CST Can try Advair HFA 110mcg dose or Dulera 100mcg ICAL LABORATORY TESTER * Telephone Encounter - Sola Mendiola MA - 02/16/2022 3:11 PM CHEMICAL LABORATORY TESTER Patient called in stating that her insurance does not covered Symbicort any more and she is needinga new prescription, please advise. ICAL LABORATORY TESTER documented in this encounter Plan of Treatment [...] documented as of this encounter Care Teams Director Of Convention Services Relationship Specialty Start Date End Date Tristin Ghotra MD [address] [facility] [address] [place] [address] PCP - General 12/07/18 documented as of this encounter
--- OUTSIDE RECORDS SUMMARY | 2024-03-10 02:17 | XMS_ITS | Encounter Summary ---
Author Organization [facility] Address [address] [address] Care Team Providers Care Senior It Security Analyst Name Role Phone Tristin Ghotra MD Primary Care Provider Encounter Details Date Type Department Care Team (Late st Contact Info) Description 10/13/2021 2:30 PM CDT Lab [facility] Outpatient Lab at [address] [phone] Chronic rhinitis Social History Tobacco Use Types Packs/Day Years Used Date Smoking Tobacco: Never Alcohol Use Standard Drinks/Week Comments Yes 0 (1 standard drink = 0.6 oz pur e alcohol) Comments Unknown Sex and Gender Information Value Date Recorded Sex Assigned at Not on file Legal Sex Female 3:22 AM DAY CARE ATTENDANT Gender Identity Female 06/27/2022 9:35 PM CDT Sexual Orientation Not on file documented as of this encounter Plan of Treatment Not on file documented as of this encounter Visit Diagnoses Diagnosis Chronic rhinitis documented in this encounter Care Teams Senior It Security Analyst Relationship Specialty Start Date End Date Tristin Ghotra MD [address] [place] [address] PCP - General 12/07/18 documented as of this encounter
--- OUTSIDE RECORDS SUMMARY | 2024-03-10 02:17 | XMS_ITS | Encounter Summary ---
Author Organization [facility] Healthcare Address [address] [place] [address] Care Team Providers Care Collection Analyst Name Role Phone Unavailable Primary Care Provider Unavailabl e Encounter Details Date Type Department Care Team (Latest Contact Info) Description 04/16/2012 10:30 AM EMPLOYMENT INSTRUCTIONAL ASSOCIATE Hospital Encounter [facility] OP Pedro Richards MD [address] [facility] [address] [address] Abdominal pain; Abnormal levels of other serum enzymes; Calculus of kidney Social History Tobacco Use Types Packs/Day Years Used Date Smoking Tobacco: Never Assessed Comments Unknown Sex and Gender Information Value Date Recorded Sex Assigned at Not on file Legal Sex Female 3:22 AM EMPLOYMENT INSTRUCTIONAL ASSOCIATE Gender Identity Female 06/27/2022 9:35 PM CDT [...] TOTAL AND DIRECT Routine 04/16/2012 11:25 AM EMPLOYMENT INSTRUCTIONAL ASSOCIATE ALT Routine 04/16/2012 11:25 AM EMPLOYMENT INSTRUCTIONAL ASSOCIATE AST Routine 04/16/2012 11:25 AM EMPLOYMENT INSTRUCTIONAL ASSOCIATE ALKALINE PHOSPHATASE Routine 04/16/2012 11:25 AM EMPLOYMENT INSTRUCTIONAL ASSOCIATE ALBUMIN Routine 04/16/2012 11:[address]MENT INSTRUCTIONAL ASSOCI[address] CT ABDOMEN PELVIS W WO CONTRAST Routine 04/16/2012 10:30 AM EMPLOYMENT INSTRUCTIONAL ASSOCIATE documented in this encounter Results * (ABNORMAL) Alkaline phosphatase (04/16/2012 11:25 AM EMPLOYMENT INSTRUCTIONAL ASSOCIATE) Alkaline Phosphatase 214(H) 35 - 104 U/L 04/16/2012 12:41 PM EMPLOYMENT INSTRUCTIONAL ASSOCIATE [facility] HISTORICAL RESULTS 04/16/2012 11:2 5 AM EMPLOYMENT INSTRUCTIONAL ASSOCIATE 04/16/2012 12:01 PM EMPLOYMENT INSTRUCTIONAL ASSOCIATE us Pedro Richards MD LAB BLOOD ORDERABLES Final Result Performing Organization Address [facility] de Phone Number [facility] HISTORICAL RESULTS * (ABNORMAL) ALT (04/16/2012 11:25 AM EMPLOYMENT INSTRUCTIONAL ASSOCIATE) ALT 446(H) 0 - 31 U/L 04/16/2012 12:41 PM EMPLOYMENT INSTRUCTIONAL ASSOCIATE [facility] HISTORICAL RESULTS 04/16/2012 11:2 5 AM EMPLOYMENT INSTRUCTIONAL ASSOCIATE 04/16/2012 12:01 PM EMPLOYMENT INSTRUCTIONAL ASSOCIATE Pedro Richards MD LAB BLOOD ORDERABLES Final Result Performing Organization Address [facility] [address]/[facility] de Phone Number [facility] HISTORICAL RESULTS * (ABNORMAL) AST (04/16/2012 11:25 AM EMPLOYMENT INSTRUCTIONAL ASSOCIATE) AST 237(H) 0 - 32 U/L 04/16/2012 12:41 PM EMPLOYMENT INSTRUCTIONAL ASSOCIATE [facility] HISTORICAL RESULTS 04/16/2012 11:2 5 AM EMPLOYMENT INSTRUCTIONAL ASSOCIATE 04/16/2012 12:01 PM EMPLOYMENT INSTRUCTIONAL ASSOCIATE us Pedro Richards MD LAB BLOOD ORDERABLES Final Result Performing Organization Address [facility] [address]/[facility] Co de Phone Number [facility] HISTORICAL RESULTS * (ABNORMAL) Bilirubin, total and direct (04/16/2012 11:25 AM EMPLOYMENT INSTRUCTIONAL ASSOCIATE) Total Bilirubin 1.9(H) 0.0 - 1.2 mg/dL Direct Bilirubin 1.05(H) 0.00 - 0.25 mg/dL 04/16/2012 11:2 5 AM EMPLOYMENT INSTRUCTIONAL ASSOCIATE 04/16/2012 12:01 PM EMPLOYMENT INSTRUCTIONAL ASSOCIATE Pedro Richards MD LAB BLOOD ORDERABLES Final Result Performing Organization Address [facility] [address]/[facility] Co de Phone Number [facility] HISTORICAL RESULTS * Albumin (04/16/2012 11:25 AM EMPLOYMENT INSTRUCTIONAL ASSOCIATE) Pathologist [facility] Albumin 3.9 3.5 - 5.2 g/dL 04/16/2012 11:2 5 AM EMPLOYMENT INSTRUCTIONAL ASSOCIATE 04/16/2012 12:01 PM EMPLOYMENT INSTRUCTIONAL ASSOCIATE Pedro Richards MD LAB BLOOD ORDERABLES Final Result Performing Organization Address [facility] [address]/[facility] de Phone Number [facility] HISTORICAL RESULTS * CT Abdomen Pelvis W WO Contrast (04/16/2012 10:30 AM EMPLOYMENT INSTRUCTIONAL ASSOCIATE) Anatomical Region Laterality Modality Body N/A Computed Tomogra phy 04/16/2012 10:3 0 AM EMPLOYMENT INSTRUCTIONAL ASSOCIATE Narrative 04/17/2012 1:12 PM EMPLOYMENT INSTRUCTIONAL ASSOCIATE EXAMINATION: ??CT of the abdomen and pelvis [...] artery. ??The origins of the celiac, SMA, MIKLA are widely patent. ??Both renal arteries are [...]
--- OUTSIDE RECORDS SUMMARY | 2024-03-10 02:17 | XMS_ITS | Encounter Summary ---
Author Organization [facility] Healthcare Address [address] [place] [address] Care Team Providers Care Supervisor Agricultural Education Name Role Phone Tristin Ghotra MD Primary Care Provider [phone] Encounter Details Date Type Department Care Team (Latest Contact Info) Description 12/01/2017 7:18 AM CDT Hospital Encounter [facility] OP Tristin Ghotra MD [address] [place] [address] Abnormal levels of other serum enzymes Social History Tobacco Use Types Packs/Day Years Used Date Smoking Tobacco: Never Alcohol Use Standard Drinks/Week Comments Yes 0 (1 standard drink = 0.6 oz pur e alcohol) Comments Unknown Sex and Gender Information Value Date Recorded Sex Assigned at Not on file Legal Sex Female 3:22 AM SLEEVE SETTER LOCKSTITCH Gender Identity Female 06/27/2022 9:35 PM CDT [...] DAILY 90 capsule 1 10/30/2017 09/03/2020 ursodioL (EDAGR FORTE) 500 mg tablet daily [...] D: ??12/01/2017 2:12 PM T: Report ID: [id number] Reading Location: ??[id number] [EOD] Narrative 12/01/2017 2:15 PM CDT EXAM [...] by Isaac Jane D.O. T: Report ID: [id number] Reading Location: [place] [address] [EOD] us Tristin Ghotra MD IM US PROCEDURES Final Result documented in this encounter Visit Diagnoses Diagnosis Abnormal levels of other serum enzymes documented in this encounter Care Teams Supervisor Agricultural Education Relationship Specialty Start Date End Date Tristin Ghotra MD [address] [facility] [address] [place] [address] PCP - General 10/11/13 12/06/18 documented as of this encounter
--- OUTSIDE RECORDS SUMMARY | 2024-03-10 02:17 | XMS_ITS | Encounter Summary ---
Author Organization [facility] Address [address] [facility] [address] [place] [address] Care Team Providers Care Childcare Director Name Role Phone Tristin Ghotra MD Primary Care Provider [phone] Reason for Visit * Reason Onset Date Comments Request For Order(s) 10/14/2021 Encounter Details Date Type Department Care Team (Late st Contact Info) Description 10/14/2021 Telephone [facility] Pulmonology [address] [facility] [address] [place] [address] [place] [address] [place] [address] [address] [place] [address] Request For Order(s) Social History Tobacco Use Types Packs/Day Years Used Date Smoking Tobacco: Never Alcohol Use Standard Drinks/Week Comments Yes 0 (1 standard drink = 0.6 oz pur e alcohol) Comments Unknown Sex and Gender Information Value Date Recorded Sex Assigned at Not on file 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 * Telephone Encounter - Inga Camacho - 10/14/2021 1:18 PM CDT Patient went to get her inhaler and they told her that she will need a spacer for this but they also need an order for the spacer. stated it should be sent to [facility] in [place]. documented in this encounter Plan of Treatment Not on file documented as of this encounter Visit Diagnoses Not on filedocumented in this encounter Care Teams Childcare Director Relationship Specialty Start Date End Date Tristin Ghotra MD [address] [facility] [address] [place] [address] PCP - General 12/07/18 documented as of this encounter
--- OUTSIDE RECORDS SUMMARY | 2024-03-10 02:17 | XMS_ITS | Continuity of Care Document ---
Author Organization [facility] [employer], [employer], [employer] Address [address] [facility] [address] [place] [address] Care Team Providers Care Hospital Cook Name Role Phone MATT ARMSTRONG Secure Software Assessor Assessment Encounter Date Assessment Date Assessment LastModified [...] available Lab lipid panel, serum 2023 024 [facility], [address], [place], [address], 01/06/2024 03:32:50 Referral gynecolog ist referral 2023 024 [facility] [employer], [address], [address], [place], [address], 01/12/2024 08:18:07 gastroent erologist referral 2023 024 [email or web address] Jorge Crowe MD, [address] [facility], [address], [place], [address], 12/15/2023 14:07:27 Procedures None recorded. Surgeries None recorded. Imaging MAMMO, screening , digital, bilateral 2023 [email or web address] [facility] Central Scheduling, [address] [facility], [place], [address], 12/15/2023 14:07:27 electroca rdiogram 2023 [facility], [facility], [address], [place], [address], 12/15/2023 15:12:32 Medication Orders Adderall XR 20 mg capsule,e xtended release 2023 [email or web address] Not available 12/15/2023 14:36:51 Airsupra 90 mcg-80 mcg/actua tion HFA aerosol inhaler 2023 [facility] [address] [place], [address], 12/15/2023 13:52:50 amlodipin e 5 mg tablet 2023 [facility] [address] [place], [address], 12/15/2023 13:52:49 losartan 25 mg tablet 2023 [facility] [address] [place], [address], 12/15/2023 13:52:48 Patient TargetsNo targets recorded. Patient InstructionsNo instructions recorded. Reason for Referral Scientific Database Curator Referral for Gy necologic examination Referring Physician: Tristin Ghotra, Internal Medicine, Encounter Date: 12/15/2023 Restoration Officer Referral for Screening for malignant neoplasm of colon Referring Physician: Tristin Ghotra, Internal Medicine, Encounter Date: 12/15/2023 Results Created Date Observation Date Name Description Value Unit Range Abnormal Flag Note LastModifiedBy Organization Detail LastModifiedTime 12/15/1912/15/2023 elect rocar diogr am No observ ation record ed. [email or web address] [facility], [facility] [address], [place], [address], 12/15/2023 15:12:32 12/18/1912/15/2023 elect rocar diogr am No observ ation record ed. [email or web address] [facility], [facility] [address], [place], [address], 12/19/2023 11:05:43 03/03/1903/02/2024 XR, chest , 2 view No observ ation record ed. [facility] [address], [place], [address], 03/03/2024 20:44:14 Result Notes None recorded. Problems Name Problem SNOMED Code Status Onset Date Resolution Date Notes Provider Name and Address Organization Details Recorded Time Asthma 242735795 Active 2017 [facility] 8 18:12:06 Essential hypertension 14744020 Active 2017 [facility]ju [facility] 8 18:12:48 History of varicose veins 326018831 Active 2017 Gudelia Dietz [facility] 8 18:13:14 Attention deficit hyperactivity disorder, predominantly inattentive type 16632032 Active 2022 Tristin Ghotra MD [address], [place], [address], [facility] 3 17:05:21 COVID-19 000880367 Active 2022 Tristin Ghotra MD [address], [place], [address], [facility] 3 21:13:01 Obsessive-comp ulsive disorder 191210063 Active 2022 Tristin Ghotra MD [address], [place], [address], [facility] 17:57:42 Chronic insomnia 988101737 Active 2022 Tristin Ghotra MD [address], [place], [address], [facility] 17:43:24 Loss of hair 155219573 Active 2022 Tristin Ghotra MD [address], [place], [address], [facility] 17:51:51 Liver enzymes level above reference range 280648264 Active 2022 Tristin Ghotra MD [address], [place], [address], [facility] 17:20:48 Problem Notes None recorded. Procedures Surgical History Date Name Laterality Status Provider Name and Address Organization Details Recorded Time 09/22/19 14 placement of stent in coronary artery completed Tristin Ghotra MD [address], [place], [address], [facility] 07/27/2020 20:14:25 Appendectomy completed [facility] 11/10/2017 09:41:36 Cholecystectomy completed [facility] 11/10/2017 09:41:52 Breast Surgery completed [facility] 11/10/2017 09:42:17 Breast Surgery completed [facility] 11/10/2017 09:42:39 Imaging Results Imaging Date Name Status LastModified by Organization Details LastModified Time 12/15/2023 electrocardiogram completed [address] [facility], [facility] [address], [place], [address], 12/15/2023 15:12:32 Procedure Notes None recorded. Medical [...] ramipril 5 mg capsule 11/15 completed -- Discjonh naranjo by Cardiolo gist Dr. Matt armstrong III [...] Last Updated DateTime 175.26 cm 20.2 kg/m2 83098.1 5 g 97.7 [degF] 16 /min 80 /min Yi Rojas [facility] 12:50:34 Date Recorded Systolic blood pressure Diastolic blood pressure Provider Name and Address Organization Details Last Updated DateTime 12/15/2023 141 mm[Hg] 79 mm[Hg] Tristin Ghotra MD [address], [place], [address], [facility] 12/15/2023 13:43:18 Social History Question Answer Notes LastModified by Organizat ion Details LastModified Time Tobacco Smoking Status Never Smoker [email or web address] 11/10/2017 09:43:55 What Is Your Level Of Alcohol Consumption? Occasional [email or web address] Information not available 11/10/2017 What Is Your Level Of Caffeine Consumption? Moderate 1/2 Soda Per Day [email or web address] Information not available 04/06/2023 How Much Tobacco Do You Chew? None Information not available 07/27/2020 Which Illicit Or Recreational Drugs Have You Used? 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 07/27/2020 19:13:16 COVID-19, mRNA, LNP-S, PF, 30 mcg/0.3 mL dose 07/07/[address] [facility] 07/27/2020 19:13:25 Past Encounters Encounter ID Performer Location Encounter Start Date Encounter Closed Date Diagnosis/Indication Diagnosis SNOMED-CT Code Diagnosis ICD10 Code Diagnosis Note [id number] Tristin Ghotra MD [facility], [facility] [address] [place] [address] 12/15/2023 11:22:16 12/15/2023 14:07:26 Liver enzymes level above reference range 311965829 R74.8 Essential hypertension 64079364 I10 - BP uncontroll ed; increase Losartsn from 25 mg qd --> 1 pill every 12 hours-- EKG done 12/15/23 Attention deficit hyperactivity disorder, predominantly inattentive type 04079165 F90.0 (pt remembered that her pediatrici an told her mom that pt may have ADHD) -- Pt reports she is focusing better and completing task; outlook on things seem brighter; no mood swings.-- no anxiety/pa lpitations or n/v, rash/swell ing/dizzin ess, confusion, SI./HI, or JACQUES.-- improved 80% since on Adderall-- pt attribute weight loss to going of steroids inhalers Asthma 326990531 J45.90 9 -- no exacerbati on-- spirometry on 07/13/23 Active or passive immunization 251764200 Z23 -- pt does not want Flu shot Screening for malignant neoplasm of colon 868260549 Z12.11 -- Pt will call with the name of the GI physician whom she wants to set up with. Screening for malignant neoplasm of breast 419176635 Z12.31 -- pt agrees to have her It Operations Analyst Dr Ahsan Street orders and manages her mammogram Gynecologi c examination 51383092 Z01.419 Screening for cardiovascular system disease 139622216 Z13.6 Health Concerns Section Related Observation LastModified by Organization Detai ls LastModified Time None Recorded Concern Status LastModified by Organization Details LastModified Time None Recorded Payers Encounter Date Sequence Insurance Name Policy Number Policy Babin Covered Member ID Babin Member ID Guarantor Name 12/15/2023 1 [facility] [id number] Paola Staleytead [id number] 2 [facility] Notes Date Note Type Note Provider Name [...] angina equivalent symptoms, etc. Tristin Ghotra MD [address] [place] [address] [address], [place], [address], [facility] 12/15/2023 13:55:11 OBGyn Episode No OBEpisode recorded.
--- OUTSIDE RECORDS SUMMARY | 2024-03-10 02:17 | XMS_ITS | Encounter Summary ---
Author Organization [facility] Healthcare Address [address] [place] [address] Care Team Providers Care Roller Setter Name Role Phone Tristin Ghotra MD Primary Care Provider [phone] Reason for Referral * (Routine) - Closed Specialty Diagnoses / Procedures Referred By George cr Referred To Contact Diagnoses Chronic rhinitis Mild persistent asthma without complication Dyspnea and respiratory abnormalities Procedures Pulmonary Function Test -[facility]; Full PFT in PFT Lab w/Stress Ox/6 Min Walk Test Kate Carrasco MD [address] [place] [address] Phone: tel: fax: Referral ID Status Reason Start Date Expiration Date Visits Re quested Visits Authorized [id number] Closed 10/13/2021 11/12/2022 1 1 Reason for Visit * (Routine) - Closed Specialty Diagnoses / Procedures Referred By George cr Referred To Contact Diagnoses Chronic rhinitis Mild persistent asthma without complication Dyspnea and respiratory abnormalities Procedures Pulmonary Function Test -[facility]; Full PFT in PFT Lab w/Stress Ox/6 Min Walk Test Kate Carrasco MD [address] [place] [address] Phone: tel: fax: Referral ID Status Reason Start Date Expiration Date Visits Re quested Visits Authorized [id number] Closed 10/13/2021 11/12/2022 1 1 Encounter Details Date Type Department Care Team (Latest Contact Info) Description 10/15/2021 1:56 PM CDT - 10/15/2021 11:59 PM CDT Hospital Encounter [facility] Respiratory Therapy [address] [place] [id number] Chronic rhinitis; Mild persistent asthma without complication; [...] on file 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 Gender Identity Female 06/27/2022 9:35 PM CDT [...] 0 09/27/2013 inhalational spacing device (Anton[facility] Cord[facility]) spacer 1 Device daily 1 each [...] - 4.47 L 10/15/2021 2:59 PM CDT [facility] FVC PRE 2.71(L) 2.79 - 4.47 L 10/15/2021 2:59 PM CDT [facility] FEV1 POST 2.11(L) 2.22 - 3.57 L 10/15/2021 2:59 PM CDT [facility] FEV1 PRE 1.53(L) 2.22 - 3.57 L 10/15/2021 2:59 PM CDT [facility] [id number] 69.23(L) 70.39 - 89.85 % 10/15/2021 2:59 PM CDT [facility] [id number] 56.53(L) 70.39 - 89.85 % 10/15/2021 2:59 PM CDT [facility] YWH88-90% POST 1.35(L) 1.47 - 4.71 L/s 10/15/2021 2:59 PM CDT [facility] NBF65-32% PRE 0.55(L) 1.47 - 4.71 L/s 10/15/2021 2:59 PM CDT [facility] PEF POST 4.18(L) 5.70 - 8.66 L/s 10/15/2021 2:59 PM CDT [facility] PEF PRE 3.63(L) 5.70 - 8.66 L/s 10/15/2021 2:59 PM CDT [facility] FET 100% POST 9.26 sec 10/15/2021 2:59 PM CDT [facility] FET 100% PRE 14.84 sec 10/15/2021 2:59 PM CDT [facility] FIVC POST 2.91(L) 3.12 - 4.50 L 10/15/2021 2:59 PM CDT [facility] FIVC PRE 2.47(L) 3.12 - 4.50 L 10/15/2021 2:59 PM CDT [facility] FIF50% POST 3.62 L/s 10/15/2021 2:59 PM CDT [facility] FIF50% PRE 3.03 L/s 10/15/2021 2:59 PM CDT [facility] DLCOc SB 23.85 22.31 - 33.78 ml/(min*mm Hg) 10/15/2021 2:59 PM CDT [facility] VA 4.42(L) 5.63 - 5.63 L 10/15/2021 2:59 PM CDT [facility] DLCO/VA PRE 5.40 3.56 - 6.15 ml/(min*mm Hg*L) 10/15/2021 2:59 PM CDT [facility] IC SB 1.85(L) 2.73 - 2.73 L 10/15/2021 2:59 PM CDT [facility] VC PRE 3.02(L) 3.12 - 4.50 L 10/15/2021 2:59 PM CDT [facility] TLC PRE 4.20(L) 4.79 - 6.76 L 10/15/2021 2:59 PM CDT [facility] RV PRE 1.18(L) 1.32 - 2.47 L 10/15/2021 2:59 PM CDT [facility] FRC PL PRE 2.79 2.15 - 3.79 L 10/15/2021 2:59 PM CDT [facility] ERV PRE 1.60(H) 1.08 - 1.08 L 10/15/2021 2:59 PM CDT [facility] IC PRE 1.41(L) 2.73 - 2.73 L 10/15/2021 2:59 PM CDT [facility] RAW PRE 2.25(L) 3.06 - 3.06 cmH2O*s/L 10/15/2021 2:59 PM CDT [facility] BF RES 16.17 BPM 10/15/2021 2:59 PM T [facility] Anatomical Region Laterality Modality PFT 10/15/2021 [...] abnormalities documented in this encounter Care Teams Roller Setter Relationship Specialty Start Date End Date Tristin Ghotra MD [address] [address] PCP - General 12/07/18 documented as of this encounter
--- OUTSIDE RECORDS SUMMARY | 2024-03-10 02:17 | XMS_ITS | Encounter Summary ---
Author Organization [facility] Address [address] [facility] [address] [place] [address] Care Team Providers Care Associate Professor Of Criminal Justice Name Role Phone Tristin Ghotra MD Primary Care Provider [phone] Reason for Visit * Reason Onset Date Comments Test Results 10/15/2021 Encounter Details Date Type Department Care Team (Late st Contact Info) Description 10/15/2021 Telephone [facility] Pulmonary at [address] [place] [address] Josefa Salvador LPN Test Results Social History Tobacco Use Types Packs/Day Years Used Date Smoking Tobacco: Never Alcohol Use Standard Drinks/Week Comments Yes 0 (1 standard drink = 0.6 oz pur e alcohol) Comments Unknown Sex and Gender Information Value Date Recorded Sex Assigned at Not on file 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
--- OUTSIDE RECORDS SUMMARY | 2024-03-10 02:17 | XMS_ITS | Encounter Summary ---
Author Organization [facility] Address [address] [address] Care Team Providers Care Sheet Music Salesperson Name Role Phone Tristin Ghotra MD Primary Care Provider [phone] Reason for Visit * Diagnostic Imaging (Routine) - Closed Specialty Diagnoses / Procedures Referred By Contac t Referred To Contact Diagnoses Chronic rhinitis Mild persistent asthma without complication Dyspnea and respiratory abnormalities Procedures X-ray chest 2 views Kate Carrasco MD [address] [address] Phone: tel: fax: [address] [address] Referral ID Status Reason Start Date Expiration Date Visits Re quested Visits Authorized [id number] Closed 10/13/2021 11/12/2022 1 1 Encounter Details Date Type Department Care Team (Latest Contact Info) Description 10/13/2021 2:15 PM CDT Ancillary Procedure [facility] Imaging at [address] [phone] Chronic rhinitis; Mild persistent asthma without complication; Dyspnea and respiratory abnormalities Social History Tobacco Use Types Packs/Day Years Used Date Smoking Tobacco: Never Alcohol Use Standard Drinks/Week Comments Yes 0 (1 standard drink = 0.6 oz pur e alcohol) Comments Unknown Sex and Gender Information Value Date Recorded Sex Assigned at Not on file Legal Sex Female 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 MJ T: Report ID: [id number] Reading Location: [id number] us Kate Carrasco MD IMG XR PROCEDURES Final Resul t documented in this encounter Visit Diagnoses Diagnosis Chronic rhinitis Mild persistent asthma without complication Dyspnea and respiratory abnormalities documented in this encounter Care Teams Sheet Music Salesperson Relationship Specialty Start Date End Date Tristin Ghotra MD [address] [facility] 100 [place] [address] PCP - General 12/07/18 documented as of this encounter
--- OUTSIDE RECORDS SUMMARY | 2024-03-10 02:17 | XMS_ITS | Encounter Summary ---
Author Organization [facility] Address [address] [facility] [address] [place] [address] Care Team Providers Care Jukebox Route Driver Name Role Phone Tristin Ghotra MD Primary Care Provider [phone] Reason for Referral * Diagnostic Imaging (Routine) - Closed Specialty Diagnoses / Procedures Referred By Contac t Referred To Contact Diagnoses Chronic rhinitis Mild persistent asthma without complication Dyspnea and respiratory abnormalities Procedures X-ray chest 2 views Kate Carrasco MD [facility] [address] [place] [address] Phone: tel: fax: [facility] [address] [place] [phone] Referral ID Status Reason Start Date Expiration Date Visits Re quested Visits Authorized [id number] Closed 10/13/2021 11/12/2022 1 1 * (Routine) - Closed Specialty Diagnoses / Procedures Referred By Contac t Referred To Contact Diagnoses Chronic rhinitis Mild persistent asthma without complication Dyspnea and respiratory abnormalities Procedures Pulmonary Function Test -[facility]; Full PFT in PFT Lab w/Stress Ox/6 Min Walk Test Kate Carrasco MD [address] [facility] [address] [place] [address] Phone: tel: fax: Referral ID Status Reason Start Date Expiration Date Visits Re quested Visits Authorized [id number] Closed 10/13/2021 11/12/2022 1 1 Reason for Visit * Reason Comments Shortness of Breath Cough Encounter Details Date Type Department Care Team (Late st Contact Info) Description 10/13/2021 11:15 AM CDT Office Visit [facility] Pulmonary at [address] [address] Kate Carrasco MD [address] [facility] [address] [address] Chronic rhinitis (Primary Dx); Mild persistent asthma without complication; Dyspnea and respiratory abnormalities Social History Tobacco Use Types Packs/Day Years Used Date Smoking Tobacco: Never Alcohol Use Standard Drinks/Week Comments Yes 0 (1 standard drink = 0.6 oz pur e alcohol) Comments Unknown Sex and Gender Information Value Date Recorded Sex Assigned at Not on file Legal Sex Female 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 No drug use. 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 [...] - 4.47 L 10/15/2021 2:59 PM CDT [facility] FVC PRE 2.71(L) 2.79 - 4.47 L 10/15/2021 2:59 PM CDT [facility] FEV1 POST 2.11(L) 2.22 - 3.57 L 10/15/2021 2:59 PM CDT [facility] FEV1 PRE 1.53(L) 2.22 - 3.57 L 10/15/2021 2:59 PM CDT [facility] [id number] 69.23(L) 70.39 - 89.85 % 10/15/2021 2:59 PM CDT [facility] [id number] 56.53(L) 70.39 - 89.85 % 10/15/2021 2:59 PM CDT [facility] PPJ29-94% POST 1.35(L) 1.47 - 4.71 L/s 10/15/2021 2:59 PM CDT [facility] GOT12-42% PRE 0.55(L) 1.47 - 4.71 L/s 10/15/2021 2:59 PM CDT [facility] PEF POST 4.18(L) 5.70 - 8.66 L/s 10/15/2021 2:59 PM CDT [facility] PEF PRE 3.63(L) 5.70 - 8.66 L/s 10/15/2021 2:59 PM CDT [facility] FET 100% POST 9.26 sec 10/15/2021 2:59 PM CDT [facility] FET 100% PRE 14.84 sec 10/15/2021 2:59 PM CDT [facility] FIVC POST 2.91(L) 3.12 - 4.50 L 10/15/2021 2:59 PM CDT [facility] FIVC PRE 2.47(L) 3.12 - 4.50 L 10/15/2021 2:59 PM CDT [facility] FIF50% POST 3.62 L/s 10/15/2021 2:59 PM CDT [facility] FIF50% PRE 3.03 L/s 10/15/2021 2:59 PM CDT [facility] DLCOc SB 23.85 22.31 - 33.78 ml/(min*mm Hg) 10/15/2021 2:59 PM CDT [facility] VA 4.42(L) 5.63 - 5.63 L 10/15/2021 2:59 PM CDT [facility] DLCO/VA PRE 5.40 3.56 - 6.15 ml/(min*mm Hg*L) 10/15/2021 2:59 PM CDT [facility] IC SB 1.85(L) 2.73 - 2.73 L 10/15/2021 2:59 PM CDT [facility] VC PRE 3.02(L) 3.12 - 4.50 L 10/15/2021 2:59 PM CDT [facility] TLC PRE 4.20(L) 4.79 - 6.76 L 10/15/2021 2:59 PM CDT [facility] RV PRE 1.18(L) 1.32 - 2.47 L 10/15/2021 2:59 PM CDT [facility] FRC PL PRE 2.79 2.15 - 3.79 L 10/15/2021 2:59 PM CDT [facility] ERV PRE 1.60(H) 1.08 - 1.08 L 10/15/2021 2:59 PM CDT [facility] IC PRE 1.41(L) 2.73 - 2.73 L 10/15/2021 2:59 PM CDT [facility] RAW PRE 2.25(L) 3.06 - 3.06 cmH2O*s/L 10/15/2021 2:59 PM CDT [facility] BF RES 16.17 BPM 10/15/2021 2:59 PM T [facility] Anatomical Region Laterality Modality PFT 10/15/2021 2:11 [...] D: ??10/16/2021 8:28 PM T: Report ID: [id number] Reading Location: ??[id number] Procedure Note Edouard Parada MD - 10/16/2021 [...] signed by Edouard SOTO T: Report ID: [id number] Reading Location: [id number] us Kate Carrasco MD IMG XR PROCEDURES Final Resul t * Allergen Birch common silver (tree) IgE (10/13/2021 2:13 PM CDT) Birch common silver IgE <0.10 0.00 - 0.34 kUnits/L [facility] Comment:Testing performed by : [facility], [place]., [address] Blood 10/13/2021 2:13 PM CDT 10/14/2021 1:11 PM CDT Kate Carrasco MD LAB BLOOD ORDERABLES Final Re sult Performing Organization Address City/[facility]/ZIP Co de Phone Number FRED [address] [place] [address] * Allergen Elm (tree) IgE (10/13/2021 2:13 PM CDT) Pathologist [facility] Elm IgE 0.10 0.00 - 0.34 kUnits/L [facility] Comment:Testing performed by : [facility], [place]., [address] Blood 10/13/2021 2:13 PM CDT 10/14/2021 1:11 PM CDT Kate Carrasco MD LAB BLOOD ORDERABLES Final Re sult FRED [address] [address] [facility] [place] [address] * Allergen Maple/Box elder (tree) IgE (10/13/2021 2:13 PM CDT) Maple/box elder IgE <0.10 0.00 - 0.34 kUnits/L [facility] Comment:Testing performed by : [facility], [place]., [address] Blood 10/13/2021 2:13 PM CDT 10/14/2021 1:11 PM CDT Kate Carrasco MD LAB BLOOD ORDERABLES Final Re sult Performing Organization Address [facility] [place] [address] [address] [facility] [place] [address] * Allergen Mountain juniper (tree) IgE (10/13/2021 2:13 PM CDT) Mountain juniper IgE 0.15 0.00 - 0.34 kUnits/L [facility] Comment:Testing performed by : [facility], [place]., [address] Blood 10/13/2021 2:13 PM CDT 10/14/2021 1:11 PM CDT Kate Carrasco MD LAB BLOOD ORDERABLES Final Re sult Performing Organization Address [facility] Co de Phone Number HUSAMKATHRYN [address] [address] [facility] [place] [address] * Allergen Westwood (tree) IgE (10/13/2021 2:13 PM CDT) Westwood IgE <0.10 0.00 - 0.34 kUnits/L [facility] Comment:Testing performed by : [facility], [place]., [address] Blood 10/13/2021 2:13 PM CDT 10/14/2021 1:11 PM CDT Kate Carrasco MD LAB BLOOD ORDERABLES Final Re sult Performing Organization Address City/[facility] Co de Phone Number HUSAMKATHRYN [address] [address] [facility] [place] [address] * Allergen Streetsboro red (tree) IgE (10/13/2021 2:13 PM CDT) [place] IgE <0.10 0.00 - 0.34 kUnits/L [facility] Comment:Testing performed by : [facility], [place]., [address] Blood 10/13/2021 2:13 PM CDT 10/14/2021 1:11 PM CDT Kate Carrasco MD LAB BLOOD ORDERABLES Final Re sult FRED [address] [address] [facility] [place] [address] * Allergen Eldon east timorese (tree) IgE (10/13/2021 2:13 PM CDT) Eldon IgE 0.12 0.00 - 0.34 kUnits/L [facility] Comment:Testing performed by : [facility], [place]., [address] Blood 10/13/2021 2:13 PM CDT 10/14/2021 1:11 PM CDT Kate Carrasco MD LAB BLOOD ORDERABLES Final Re sult Performing Organization Address [facility] Co de Phone Number FRED [address] [address] [facility] [place] [address] * (ABNORMAL) Allergen [place] (tree) IgE (10/13/2021 2:13 PM CDT) [place] (tree) IgE 0.75(H) 0.00 - 0.34 kUnits/L [facility] Comment:Testing performed by : [facility], [place]., [address] Blood 10/13/2021 2:13 PM CDT 10/14/2021 1:11 PM CDT Kate Carrasco MD LAB BLOOD ORDERABLES Final Re sult FRED [address] [address] [facility] [place] [address] * Allergen Bermuda grass (grass) IgE (10/13/2021 2:13 PM CDT) Bermuda grass IgE <0.10 0.00 - 0.34 kUnits/L [facility] Comment:Testing performed by : [facility], [place]., [address] Blood 10/13/2021 2:13 PM CDT 10/14/2021 1:11 PM CDT Kate Carrasco MD LAB BLOOD ORDERABLES Final Re sult Performing Organization Address City/[facility]/ZIP Co de Phone Number FRED [address] [address] [place] [address] * Allergen Augustin grass (grass) IgE (10/13/2021 2:13 PM CDT) Augustin grass IgE <0.10 0.00 - 0.34 kUnits/L [facility] Comment:Testing performed by : [facility], [place]., [address] Blood 10/13/2021 2:13 PM CDT 10/14/2021 1:11 PM CDT Kate Carrasco MD LAB BLOOD ORDERABLES Final Re sult Performing Organization Address City/[facility] Co de Phone Number [facility] [address] [address] [place] [address] * Allergen Suhail grass (grass) IgE (10/13/2021 2:13 PM CDT) Suhail grass IgE <0.10 0.00 - 0.34 kUnits/L [facility] Comment:Testing performed by : [facility], [place]., [address] Blood 10/13/2021 2:13 PM CDT 10/14/2021 1:11 PM CDT Kate Carrasco MD LAB BLOOD ORDERABLES Final Re sult HUSAMKATHRYN [address] [address] [facility] [place] [address] * Allergen Plantain czech (weed) IgE (10/13/2021 2:13 PM CDT) Pathologist [facility] Plantain czech IgE <0.10 0.00 - 0.34 kUnits/L [facility] Comment:Testing performed by : [facility], [place]., [address] Blood 10/13/2021 2:13 PM CDT 10/14/2021 1:11 PM CDT Kate Carrasco MD LAB BLOOD ORDERABLES Final Re sult Performing Organization Address [facility] Co de Phone Number HUSAMKATHRYN [address] [address] [facility] [place] [address] * Allergen Rico's quarter (weed) IgE (10/13/2021 2:13 PM CDT) Pathologist [facility] Rico's quarters IgE <0.10 0.00 - 0.34 kUnits/L [facility] Comment:Testing performed by : [facility], [place]., [address] Blood 10/13/2021 2:13 PM CDT 10/14/2021 1:11 PM CDT Kate Carrasco MD LAB BLOOD ORDERABLES Final Re sult HUSAMKATHRYN [address] [address] [facility] [place] [address] * Allergen Pigweed, rough (weed) IgE (10/13/2021 2:13 PM CDT) Pathologist [facility] Pigweed rough IgE <0.10 0.00 - 0.34 kUnits/L [facility] Comment:Testing performed by : [facility], [place]., [address] Blood 10/13/2021 2:13 PM CDT 10/14/2021 1:11 PM CDT Kate Carrasco MD LAB BLOOD ORDERABLES Final Re sult Performing Organization Address [facility] Co de Phone Number FRED [address] [facility] [facility] [place] [address] * (ABNORMAL) Allergen Ragweed short/common (weed) IgE (10/13/2021 2:13 PM CDT) Ragweed common IgE 0.42(H) 0.00 - 0.34 kUnits/L [facility] Comment:Testing performed by : [facility], [place]., [address] Blood 10/13/2021 2:13 PM CDT 10/14/2021 1:11 PM CDT Result [facility] Kate Carrasco MD LAB BLOOD ORDERABLES Final Re sult Performing Organization Address [facility] Co de Phone Number FRED [address] [address] [facility] [place] [address] * (ABNORMAL) Allergen Alternaria tenuis (mold) IgE (10/13/2021 2:13 PM CDT) Alternaria tenius IgE 2.64(H) 0.00 - 0.34 kUnits/L [facility] Comment:Testing performed by : [facility], [place]., [address] Blood 10/13/2021 2:13 PM CDT 10/14/2021 1:11 PM CDT Kate Carrasco MD LAB BLOOD ORDERABLES Final Re sult Performing Organization Address [facility] Co de Phone Number FRED [phone] [address] [facility] [place] [address] * (ABNORMAL) Allergen Aspergillus fumigatus (mold) IgE (10/13/2021 2:13 PM CDT) Aspergillus fumigatus IgE 0.48(H) 0.00 - 0.34 kUnits/L [facility] Comment:Testing performed by : [facility], [place]., [address] Blood 10/13/2021 2:13 PM CDT 10/14/2021 1:11 PM CDT Kate Carrasco MD LAB BLOOD ORDERABLES Final Re sult Performing Organization Address City/[facility]/ZIP Co de Phone Number [facility] [address] [address] [facility] [place] [address] * (ABNORMAL) Allergen Cladosporium herbarum (mold) IgE (10/13/2021 2:13 PM CDT) Cladosporium herbarum IgE 0.38(H) 0.00 - 0.34 kUnits/L [facility] Comment:Testing performed by : [facility], [place]., [address] Blood 10/13/2021 2:13 PM CDT 10/14/2021 1:11 PM CDT Kate Carrasco MD LAB BLOOD ORDERABLES Final Re sult [facility] [address] [address] [facility] [place] [address] * (ABNORMAL) Allergen Penicillium chrysogenum (mold) IgE (10/13/2021 2:13 PM CDT) Penicillium chrysogenum IgE 0.40(H) 0.00 - 0.34 kUnits/L [facility] Comment:Testing performed by : [facility], [place]., [address] Blood 10/13/2021 2:13 PM CDT 10/14/2021 1:11 PM CDT Kate Carrasco MD LAB BLOOD ORDERABLES Final Re sult Performing Organization Address [facility] [place] [address] [address] [facility] [place] [address] * (ABNORMAL) Allergen Cat dander standard (animal) IgE (10/13/2021 2:13 PM CDT) Cat dander IgE >100.00(H) 0.00 - 0.34 kUnits/L [facility] Comment:Testing performed by : [place]., [address] Blood 10/13/2021 2:13 PM CDT 10/14/2021 1:11 PM CDT Kate Carrasco MD LAB BLOOD ORDERABLES Final Re sult Performing Organization Address [facility] Co de Phone Number HUSAMKATHRYN [address] [address] [place] [address] * Allergen Cockroach east timorese (insect) IgE (10/13/2021 2:13 PM CDT) Cockroach IgE <0.10 0.00 - 0.34 kUnits/L [facility] Comment:Testing performed by : [place]., [address] Blood 10/13/2021 2:13 PM CDT 10/14/2021 1:11 PM CDT Kate Carrasco MD LAB BLOOD ORDERABLES Final Re sult Performing Organization Address [facility] Co de Phone Number FRED [address] [address] [facility] [place] [address] * Allergen Dermatophagoides farniae (insect) IgE (10/13/2021 2:13 PM CDT) Dermatophyton farinae IgE 0.11 0.00 - 0.34 kUnits/L [facility] Comment:Testing performed by : [place]., [address] Blood 10/13/2021 2:13 PM CDT 10/14/2021 1:11 PM CDT Kate Carrasco MD LAB BLOOD ORDERABLES Final Re sult Performing Organization Address [facility] Co de Phone Number [facility] [address] [address] [place] [address] * Allergen Dermatophagoides pteronyssinus (insect) IgE (10/13/2021 2:13 PM CDT) Dermatophyton pteronyssinus IgE 0.12 0.00 - 0.34 kUnits/L [facility] Comment:Testing performed by : [facility], [place]., [address] Blood 10/13/2021 2:13 PM CDT 10/14/2021 1:11 PM CDT Result [facility] Kate Carrasco MD LAB BLOOD ORDERABLES Final Re sult Performing Organization Address [facility] Co de Phone Number [facility] [address] [address] [place] [address] * (ABNORMAL) Allergen Dog dander (animal) IgE (10/13/2021 2:13 PM CDT) Dog dander IgE 7.20(H) 0.00 - 0.34 kUnits/L [facility] Comment:Testing performed by : [place]., [address] Blood 10/13/2021 2:13 PM CDT 10/14/2021 1:11 PM CDT Ktae Carrasco MD LAB BLOOD ORDERABLES Final Re sult Performing Organization Address [facility] Co de Phone Number FRED [phone] [facility] [facility] [place] [address] * (ABNORMAL) Allergen Mouse urine proteins (animal) IgE (10/13/2021 2:13 PM CDT) Mouse urine proteins IgE 1.22(H) 0.00 - 0.34 kUnits/L [facility] Comment:Testing performed by : [facility], [place]., [address] Blood 10/13/2021 2:13 PM CDT 10/14/2021 1:11 PM CDT Kate Carrasco MD LAB BLOOD ORDERABLES Final Re sult Performing Organization Address [facility] Co de Phone Number FRED [address] [address] [place] [address] * (ABNORMAL) Alleren Rat urine proteins (animal) IgE (10/13/2021 2:13 PM CDT) Rat urine proteins IgE 1.79(H) 0.00 - 0.34 kUnits/L [facility] Comment:Testing performed by : [facility], [place]., [address] Blood 10/13/2021 2:13 PM CDT 10/14/2021 1:11 PM CDT Kate Carrasco MD LAB BLOOD ORDERABLES Final Re sult Performing Organization Address City/[facility]/ZIP Co de Phone Number FRED [address] [facility] [facility] [place] [address] * (ABNORMAL) IgE (10/13/2021 2:13 PM CDT) IgE 387.0(H) 1.0 - 100.0 IUnits/mL [facility] Comment:Testing performed by : [facility], [address] [place]., [address] Blood 10/13/2021 2:13 PM CDT 10/14/2021 1:01 PM CDT Kate Carrasco MD LAB [place]LOOD [place] [address] [place] [address] * (ABNORMAL) CBC with auto differential (10/13/2021 [...] BLOOD [place] [address] [place] [address] documented in this encounter Visit Diagnoses Diagnosis [...] DAY added in this encounter Care Teams Jukebox Route Driver Relationship Specialty Start Date End Date Tristin Ghotra MD [address] [place] [address] PCP - General 12/07/18 documented as of this encounter
--- OUTSIDE RECORDS SUMMARY | 2024-03-10 02:18 | XMS_ITS | Encounter Summary ---
Author Organization [facility] Care Team Providers Care Job Printer Name Role Phone Unavailable Primary Care Provider Unavailabl e Encounter Details Date Type Department Care Team (Late st Contact Info) Description 05/07/2009 9:10 AM CDT - 05/08/2009 7:54 PM CDT Hospital Encounter 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
--- OUTSIDE RECORDS SUMMARY | 2024-03-10 02:18 | XMS_ITS | Encounter Summary ---
Author Organization [facility] Care Team Providers Care Lug Breaker And Wire Puller Name Role Phone Unavailable Primary Care Provider Unavailabl e Encounter Details Date Type Department Care Team (Late st Contact Info) Description 05/26/2006 9:47 AM CDT - 05/26/2006 7:28 PM CDT Hospital Encounter [facility] Rigo Fraser MD [address] [place] [address] Social History Tobacco Use Types Packs/Day Years Used Date Smoking Tobacco: Never Assessed Comments Unknown Sex and Gender Information Value Date Recorded Sex Assigned at Not on file Legal Sex Female 3:22 AM MAPPING PILOT Gender Identity Female 06/27/2022 9:35 PM CDT Sexual Orientation Not on file documented as of this encounter Plan of Treatment Not on file documented as of this encounter Visit Diagnoses Not on filedocumented in this encounter
--- OUTSIDE RECORDS SUMMARY | 2024-03-10 02:18 | XMS_ITS | Encounter Summary ---
Author Organization [facility] Facility Care Team Providers Care Orchid Grower Name Role Phone Unavailable Primary Care Provider Unavailabl e Encounter Details Date Type Department Care Team (Late st Contact Info) Description 01/10/2012 - 01/10/2012 11:59 PM EFFICIENCY CLERK Hospital Encounter [facility] Jorge Crowe MD [address] [place] [address] Pruritic disorder Social History Tobacco Use Types Packs/Day Years Used Date Smoking Tobacco: Never Assessed Comments Unknown Sex and Gender Information Value Date Recorded Sex Assigned at Not on file Legal Sex Female 3:22 AM EFFICIENCY CLERK Gender Identity Female 06/27/2022 9:35 PM CDT Sexual Orientation Not on file documented as of this encounter Plan of Treatment Not on file documented as of this encounter Visit Diagnoses Diagnosis Pruritic disorder Unspecified pruritic disorder documented in this encounter
--- OUTSIDE RECORDS SUMMARY | 2024-03-10 02:18 | XMS_ITS | Encounter Summary ---
Author Organization [facility] Healthcare Address [address] [place] [address] Care Team Providers Care Table Setter Name Role Phone Unavailable Primary Care Provider Unavailabl e Encounter Details Date Type Department Care Team (Latest Contact Info) Description 03/27/2012 1:21 PM BLUEPRINT MACHINE OPERATOR - 03/29/2012 1:00 PM BLUEPRINT MACHINE OPERATOR Hospital Encounter [facility] Edgar Hager MD [address] [place] [address] Other specified disorders of biliary tract Social History Tobacco Use Types Packs/Day Years Used Date Smoking Tobacco: Never Assessed Comments Unknown Sex and Gender Information Value Date Recorded Sex Assigned at Not on file Legal Sex Female 3:22 AM BLUEPRINT MACHINE OPERATOR Gender Identity Female 06/27/2022 9:35 PM CDT Sexual Orientation Not on file documented as of this encounter Last Filed Vital Signs Vital Sign Reading Time Taken Comments Blood Pressure 134/77 03/29/2012 7:33 AM BLUEPRINT MACHINE OPERATOR Pulse 68 03/29/2012 7:33 AM BLUEPRINT MACHINE OPERATOR Temperature 36.8 ??C (98.3 ??F) 03/29/2012 7:33 AM CS T Respiratory Rate - - Oxygen Saturation 93% 03/29/2012 7:33 AM BLUEPRINT MACHINE OPERATOR Inhaled Oxygen Concentration - - Weight 63.5 kg (140 lb) 03/29/2012 7:33 AM BLUEPRINT MACHINE OPERATOR Height 175.3 cm (5' 9 ) 03/29/2012 7:33 AM BLUEPRINT MACHINE OPERATOR Body Mass Index 20.67 03/29/2012 7:33 AM BLUEPRINT MACHINE OPERATOR documented in this encounter Medications at Time of Discharge cholestyramine (QUESTRAN) 4 gram packet TAKE 1 PACKET 3 TIMES DAILY in juice 03/23/2012 06/28/2022 documented as of this encounter Plan of Treatment Not on file documented as of this encounter Procedures Procedure Name Priority Date/Time Associated Diagnosis Comments OXYGEN SATURATION, ARTERIAL Routine 03/29/2012 7:41 AM BLUEPRINT MACHINE OPERATOR CBC WITH AUTO DIFFERENTIAL Routine 03/29/2012 7:02 AM BLUEPRINT MACHINE OPERATOR OXYGEN SATURATION, ARTERIAL Routine 03/28/2012 1:00 PM BLUEPRINT MACHINE OPERATOR OXYGEN SATURATION, ARTERIAL Routine 03/28/2012 7:31 AM BLUEPRINT MACHINE OPERATOR documented in this encounter Results * Oxygen saturation, arterial (03/29/2012 7:41 AM BLUEPRINT MACHINE OPERATOR) Specimen Type Oximeter 03/29/2012 8:59 AM BLUEPRINT MACHINE OPERATOR [employer] HISTORICAL RESULTS Puncture Site FINGER 03/29/2012 8:59 AM [facility] [employer] HISTORICAL RESULTS O2 Sat Pulse Oximetry 96.0 >=90.0 % 03/29/2012 8:59 AM BLUEPRINT MACHINE OPERATOR [facility] [employer] HISTORICAL RESULTS FiO2 21.0 % 03/29/2012 8:59 AM [facility] [employer] HISTORICAL RESULTS Lead Web Application Developer ID [email or web address] 03/29/2012 8:59 AM [facility] [employer] HISTORICAL RESULTS 03/29/2012 7:41 AM BLUEPRINT MACHINE OPERATOR 03/29/2012 8:58 AM BLUEPRINT MACHINE OPERATOR Edgar Hager MD LAB BLOOD ORDERABLES Final Resu lt [facility] [place] HISTORICAL RESULTS * (ABNORMAL) CBC with auto differential (03/29/2012 7:02 AM BLUEPRINT MACHINE OPERATOR) WBC 7.8 4.6 - 10.2 x10 3/ul 03/29/2012 8:02 AM [facility] [employer] HISTORICAL RESULTS RBC 3.55(L) 3.76 - 4.80 x10 6/ul 03/29/2012 8:02 AM [facility] [employer] HISTORICAL RESULTS Hemoglobin 11.4 11.0 - 15.0 g/dl 03/29/2012 8:02 AM BLUEPRINT MACHINE OPERATOR [facility] [employer] HISTORICAL RESULTS Hct 33.8 33.0 - 43.0 % 03/29/2012 8:02 AM BLUEPRINT MACHINE OPERATOR [facility] HISTORICAL RESULTS MCV 95.2 80.0 - 97.0 fl 03/29/2012 8:02 AM BLUEPRINT MACHINE OPERATOR [facility] HISTORICAL RESULTS MCH 32.1(H) 27.0 - 31.2 pg 03/29/2012 8:02 AM [employer] [facility] [employer] HISTORICAL RESULTS MCHC 33.7 31.8 - 35.4 g/dl 03/29/2012 8:02 AM [employer] [facility] [employer] HISTORICAL RESULTS RDW 12.8 11.6 - 14.8 % 03/29/2012 8:02 AM [employer] [facility] [employer] HISTORICAL RESULTS Plt Count 205 124 - 400 x10 3/ul 03/29/2012 8:02 AM [employer] [facility] [employer] HISTORICAL RESULTS MPV 12.4(H) 7.4 - 10.4 fl 03/29/2012 8:02 AM [employer] [facility] [employer] HISTORICAL RESULTS Differential Method AUTOMATED DIFF --------- -- 03/29/2012 8:02 AM [employer] [facility] [employer] HISTORICAL RESULTS Neut % 72.2 37.0 - 85.0 % 03/29/2012 8:02 AM [employer] [facility] [employer] HISTORICAL RESULTS Immature Gran % 0.3 0.0 - 3.0 % 03/29/2012 8:02 AM [employer] [facility] [employer] HISTORICAL RESULTS Lymph % 19.7 5.0 - 45.0 % 03/29/2012 8:02 AM [employer] [facility] HISTORICAL RESULTS [place] % 6.4 3.0 - 15.0 % 03/29/2012 8:02 AM [employer] [facility] [employer] HISTORICAL RESULTS Eos % 1.3 0.0 - 7.0 % 03/29/2012 8:02 AM [employer] [facility] [employer] HISTORICAL RESULTS Baso % 0.1 0.0 - 2.0 % 03/29/2012 8:02 AM [employer] [facility] [employer] HISTORICAL RESULTS ABSOLUTE COUNTS ABSOLUTE COUNTS --------- -- 03/29/2012 8:02 AM [employer] [facility] [employer] HISTORICAL RESULTS Absolute Neuts (auto) 5.6 1.7 - 8.7 x10 3/ul 03/29/2012 8:02 AM [employer] [facility] [employer] HISTORICAL RESULTS Immature Gran # 0.0 0.0 - 0.3 x10 3/ul Absolute Lymphs (auto) 1.5 0.2 - 4.6 x10 3/ul 03/29/2012 8:02 AM BLUEPRINT MACHINE OPERATOR [facility] HISTORICAL RESULTS Absolute Monos (auto) 0.5 0.1 - 1.5 x10 3/ul Absolute Eos (auto) 0.1 0.0 - 0.7 x10 3/ul 03/29/2012 8:02 AM BLUEPRINT MACHINE OPERATOR [facility] HISTORICAL RESULTS Absolute Basos (auto) 0.0 0.0 - 0.2 x10 3/ul 03/29/2012 7:02 AM BLUEPRINT MACHINE OPERATOR 03/29/2012 7:36 AM BLUEPRINT MACHINE OPERATOR us Allyssa Tucker MD LAB BLOOD ORDERABLES Final Result [facility] HISTORICAL RESULTS * Oxygen saturation, arterial (03/28/2012 1:00 PM BLUEPRINT MACHINE OPERATOR) Specimen Type Oximeter Puncture Site FINGER O2 Sat Pulse Oximetry 97.0 >=90.0 % FiO2 21.0 % Lead Web Application Developer ID [email or web address] 03/28/2012 1:00 PM BLUEPRINT MACHINE OPERATOR 03/28/2012 2:10 PM BLUEPRINT MACHINE OPERATOR us Edgar Hager MD LAB BLOOD ORDERABLES Final Resu lt Performing Organization Address [facility]/State/ZIP Co de Phone Number [facility] HISTORICAL RESULTS * Oxygen saturation, arterial (03/28/2012 7:31 AM BLUEPRINT MACHINE OPERATOR) Specimen Type Oximeter 03/28/2012 8:09 AM BLUEPRINT MACHINE OPERATOR [facility] HISTORICAL RESULTS Puncture Site FINGER 03/28/2012 8:09 AM BLUEPRINT MACHINE OPERATOR [facility] HISTORICAL RESULTS O2 Sat Pulse Oximetry 97.0 >=90.0 % 03/28/2012 8:09 AM BLUEPRINT MACHINE OPERATOR [facility] HISTORICAL RESULTS FiO2 21.0 % 03/28/2012 8:09 AM BLUEPRINT MACHINE OPERATOR [facility] HISTORICAL RESULTS Lead Web Application Developer ID [email or web address] 03/28/2012 8:09 AM BLUEPRINT MACHINE OPERATOR [facility] HISTORICAL RESULTS 03/28/2012 7:31 AM BLUEPRINT MACHINE OPERATOR 03/28/2012 8:09 AM BLUEPRINT MACHINE OPERATOR us Edgar Hager MD LAB BLOOD ORDERABLES Final Resu lt [facility] HISTORICAL RESULTS documented in this encounter Visit Diagnoses Diagnosis Other specified disorders of biliary tract documented in this encounter
--- OUTSIDE RECORDS SUMMARY | 2024-03-10 02:18 | XMS_ITS | Encounter Summary ---
Author Organization [facility] Facility Care Team Providers Care Vac Press Operator Name Role Phone Unavailable Primary Care Provider Unavailabl e Encounter Details Date Type Department Care Team (Late st Contact Info) Description 03/21/2012 - 03/21/2012 11:59 PM TIE INSPECTOR Hospital Encounter [facility] CLINCONV Jorge Crowe MD [address] [place] [address] Other specified disorders of biliary tract; Other specified abnormal findings of blood chemistry Social History Tobacco Use Types Packs/Day Years Used Date Smoking Tobacco: Never Assessed Comments Unknown Sex and Gender Information Value Date Recorded Sex Assigned at Not on file Legal Sex Female 3:22 AM TIE INSPECTOR Gender Identity Female 06/27/2022 9:35 PM CDT Sexual Orientation Not on file documented as of this encounter Plan of Treatment Not on file documented as of this encounter Procedures Procedure Name Priority Date/Time Associated Diagnosis Comments 3-D RENDERING ON MODALITY Routine 03/21/2012 2:20 PM TIE INSPECTOR MRI ABDOMEN W WO CONTRAST Routine 03/21/2012 2:20 PM TIE INSPECTOR BLOOD CREATININE, POINT OF CARE Routine 03/21/2012 1:33 PM TIE INSPECTOR DISCHARGE LABORATORY CUMULATIVE REPORT Routine 03/21/2012 12:00 AM TIE INSPECTOR documented in this encounter Results * 3-D Rendering on Modality (03/21/2012 2:20 PM TIE INSPECTOR) Anatomical Region Laterality Modality N/A Magnetic Resonan ce 03/21/2012 2:20 PM TIE INSPECTOR Narrative 03/22/2012 4:35 PM TIE INSPECTOR EVAN AVILA M.D. MELANIE ALBERT M.D. FINAL REPORT The radiology attending physician has personally reviewed this study, and has reviewed and/or edited this written report and agrees with it. ACC# ??Date Time ??Exam [id number] Mar 21, 2012 14:20:00 [id number] MRI Abdomen wwo contrast [id number] Mar 21, 2012 14:20:00 [id number] 3-D Rendering on Modality EXAMINATION: ?? 1. [...] agrees with it. ACC# Date Time Exam [id number] Mar 21, 2012 14:20:00 [id number] MRI Abdomen wwo contrast [id number] Mar 21, 2012 14:20:00 [id number] 3-D Rendering on Modality EXAMINATION: 1. MAGNETIC [...] MRI Abdomen WWO Contrast (03/21/2012 2:20 PM TIE INSPECTOR) Anatomical Region Laterality Modality Body N/A Magnetic Resonan ce 03/21/2012 2:20 PM TIE INSPECTOR Narrative 03/22/2012 4:35 PM TIE INSPECTOR EVAN AVILA M.D. MELANIE ALBERT M.D. FINAL REPORT The radiology attending physician has personally reviewed this study, and has reviewed and/or edited this written report and agrees with it. ACC# ??Date Time ??Exam [id number] Mar 21, 2012 14:20:00 [id number] MRI Abdomen wwo contrast [id number] Mar 21, 2012 14:20:00 [id number] 3-D Rendering on Modality EXAMINATION: ?? 1. [...] agrees with it. ACC# Date Time Exam [id number] Mar 21, 2012 14:20:00 [id number] MRI Abdomen wwo contrast [id number] Mar 21, 2012 14:20:00 [id number] 3-D Rendering on Modality EXAMINATION: 1. MAGNETIC [...] creatinine, point of care (03/21/2012 1:33 PM TIE INSPECTOR) Creatinine, POC, bld 0.7 0.6 - 1.1 mg/dl HISTORICAL RESULTS Blood specimen (specimen) 03/21/2012 1:33 PM TIE INSPECTOR us Jorge Crowe MD LAB BLOOD ORDERABLES F inal Result HISTORICAL RESULTS * Discharge Laboratory Cumulative Report (03/21/2012 12:00 AM TIE INSPECTOR) 03/21/2012 Narrative HISTORICAL RESULTS - 03/21/2012 3:17 PM TIE INSPECTOR ?[facility] ?Department of Laboratories ? One [facility] [place] ? [place] [address] Patient Name: ??PAOLA MCKEON V Med Rec Number: [id number] Fin Number: ?[id number] Date: ?1975 Sex/Age: ? Female 37 years Admit Date: ?03/21/2012 Discharge Date: 03/21/2012 Doctor: ?Jorge Crowe Facility: ?[facility] Location: ?[facility] Chart Printed: 03/21/2012 15:17 [...]
--- OUTSIDE RECORDS SUMMARY | 2024-03-10 02:18 | XMS_ITS | Encounter Summary ---
Author Organization [facility] Healthcare Address [address] [place] [address] Care Team Providers Care County Or City Auditor Name Role Phone Unavailable Primary Care Provider Unavailabl e Encounter Details Date Type Department Care Team (Latest Contact Info) Description 03/27/2012 7:56 AM IN STORE BANKER Hospital Encounter [facility] Edgar Hager MD [address] [place] [address] Abdominal pain; Other specified abnormal findings of blood chemistry; Nausea without vomiting; Pruritic disorder; Celiac artery compression syndrome (CMS/HCC) (HCC); Other acquired absence of organ Social History Tobacco Use Types Packs/Day Years Used Date Smoking Tobacco: Never Assessed Comments Unknown Sex and Gender Information Value Date Recorded Sex Assigned at Not on file Legal Sex Female 3:22 AM IN STORE BANKER Gender Identity Female 06/27/2022 9:35 PM CDT [...] ABDOMEN LIMITED Routine 03/27/2012 8: 26 AM IN STORE BANKER US AORTA IVC Routine 03/27/2012 7:59 AM IN STORE BANKER documented in this encounter Results * US Abdomen Limited (03/27/2012 8:26 AM IN STORE BANKER) Anatomical Region Laterality Modality Abdomen N/A Ultrasound 03/27/2012 8:26 AM IN STORE BANKER Impressions 03/27/2012 10:19 AM IN STORE BANKER ?? Status post cholecystectomy. Right upper quadrant ultrasound is within normal limits THIS IS AN ELECTRONICALLY VERIFIED REPORT 03/27/2012 10:15 AM: ??Cecilio Lizarraga M.D. Cecilio Lizarraga M.D. NC:nc 10:15 AM 10:15 AM [EOD] Narrative 03/27/2012 10:19 AM IN STORE BANKER EXAMINATION: ??Right upper quadrant ultrasound HISTORY: ??Nausea, [...] 10:15 AM [EOD] us Edgar Hager MD [facility] US PROCEDURES Final Result * US Aorta IVC (03/27/2012 7:59 AM IN STORE BANKER) Anatomical Region Laterality Modality Abdomen N/A Ultrasound 03/27/2012 7:59 AM IN STORE BANKER Narrative 03/28/2012 1:43 PM IN STORE BANKER DATE: ??03/27/2012 TAPE NUMBER: REASON FOR EXAM: [...] VESSELS. RC/LC TD: ??03/28/2012 08:25:06 Job #: ??[id number] Pedro Richards MD [EOD] Procedure Note Provider, [...] IN BOTH VESSELS. RC/LC TD: 03/28/2012 08:25:06 /[id number] Pedro Richards MD [EOD] Edgar Hager MD [...]
--- OUTSIDE RECORDS SUMMARY | 2024-03-10 02:18 | XMS_ITS | Encounter Summary ---
Author Organization [facility] Facility Care Team Providers Care Work Counselor Name Role Phone Unavailable Primary Care Provider Unavailabl e Encounter Details Date Type Department Care Team (Late st Contact Info) Description 05/01/2009 - 05/01/2009 11:59 PM ENTRY WRITER Hospital Encounter [facility] CLINCONV Jorge Crowe MD [address] [place] [address] Pruritic disorder; Calculus of gallbladder Social History Tobacco Use Types Packs/Day Years Used Date Smoking Tobacco: Never Assessed Comments Unknown Sex and Gender Information Value Date Recorded Sex Assigned at Not on file Legal Sex Female 3:22 AM ENTRY WRITER Gender Identity Female 06/27/2022 9:35 PM CDT Sexual Orientation Not on file documented as of this encounter Plan of Treatment Not on file documented as of this encounter Visit Diagnoses Diagnosis Pruritic disorder Unspecified pruritic disorder Calculus of gallbladder Calculus of gallbladder without mention of cholecystitis or obstruction documented in this encounter
--- OUTSIDE RECORDS SUMMARY | 2024-03-10 02:18 | XMS_ITS | Encounter Summary ---
Author Organization [facility] Facility Care Team Providers Care Senior Data Mining Analyst Name Role Phone Unavailable Primary Care Provider Unavailabl e Encounter Details Date Type Department Care Team (Late st Contact Info) Description 01/18/2012 - 02/20/2012 11:59 PM MILITARY NURSE Hospital Encounter [facility] Kendra Petty MD [address] [place] [address] Social History Tobacco Use Types Packs/Day Years Used Date Smoking Tobacco: Never Assessed Comments Unknown Sex and Gender Information Value Date Recorded Sex Assigned at Not on file Legal Sex Female 3:22 AM MILITARY NURSE Gender Identity Female 06/27/2022 9:35 PM CDT Sexual Orientation Not on file documented as of this encounter Plan of Treatment Not on file documented as of this encounter Visit Diagnoses Not on filedocumented in this encounter
--- OUTSIDE RECORDS SUMMARY | 2024-03-10 02:18 | XMS_ITS | Encounter Summary ---
Author Organization [facility] Facility Care Team Providers Care Plate Hanger Name Role Phone Unavailable Primary Care Provider Unavailabl e Encounter Details Date Type Department Care Team (Late st Contact Info) Description 04/17/2009 - 04/17/2009 11:59 PM REHEATER HELPER Hospital Encounter [facility] CLINCONV Jorge Crowe MD [address] [place] [address] Abnormal results of liver function studies Social History Tobacco Use Types Packs/Day Years Used Date Smoking Tobacco: Never Assessed Comments Unknown Sex and Gender Information Value Date Recorded Sex Assigned at Not on file Legal Sex Female 3:22 AM REHEATER HELPER Gender Identity Female 06/27/2022 9:35 PM CDT Sexual Orientation Not on file documented as of this encounter Plan of Treatment Not on file documented as of this encounter Visit Diagnoses Diagnosis Abnormal results of liver function studies Nonspecific abnormal results of liver function study documented in this encounter
--- OUTSIDE RECORDS SUMMARY | 2024-03-10 02:18 | XMS_ITS | Encounter Summary ---
Author Organization [facility] Facility Care Team Providers Care Database Specialist Name Role Phone Unavailable Primary Care Provider Unavailabl e Encounter Details Date Type Department Care Team (Late st Contact Info) Description 04/25/2009 - 04/25/2009 11:59 PM LIQUID FLOOR AND WALL APPLIER Hospital Encounter [facility] CLINCONV Jorge Crowe MD [address] [place] [address] Follow-up examination, following other surgery; Abnormal levels of other serum enzymes Social History Tobacco Use Types Packs/Day Years Used Date Smoking Tobacco: Never Assessed Comments Unknown Sex and Gender Information Value Date Recorded Sex Assigned at Not on file Legal Sex Female 3:22 AM LIQUID FLOOR AND WALL APPLIER Gender Identity Female 06/27/2022 9:35 PM CDT Sexual Orientation Not on file documented as of this encounter Plan of Treatment Not on file documented as of this encounter Visit Diagnoses Diagnosis Follow-up examination, following other surgery Abnormal levels of other serum enzymes documented in this encounter
--- OUTSIDE RECORDS SUMMARY | 2024-03-10 21:23 | XMS_ITS | Clinical Summary ---
Author Organization [facility] Address [address] [place] [address] Care Team Providers Care Professional Volleyball Player Name Role Phone Tristin Ghotra MD Primary Care Provider [phone] Source Comments [facility],non-owned Affiliates and Associated Physician Practices is amultiple site organization consisting of ambulatory clinics and hospital sitesin [place], [place], [place] and [place]. This disclosure is being madepursuant to the Care Everywhere program and may not contain all information available regarding this patient. Last updated 17.[facility] Allergies No known active allergies Medications * [...] 09/06/2017 History of CO (myocardial infarction) 09/06/2017 Overview (09/07/2017): Echo 09/2013 [...] age to complete this topic Care Teams Professional Volleyball Player Relationship Specialty Start Date End Date Tristin Ghotra MD [address] [place] [address] PCP - General 04/04/12
--- OUTSIDE RECORDS SUMMARY | 2024-03-10 21:23 | XMS_ITS | Referral Summary ---
Author Organization [facility] Address [address] [facility] [place] [address] Care Team Providers Care Store Operations Specialist Name Role Phone Tristin Ghotra MD Primary Care Provider [phone] Source Comments [facility],non-owned Affiliates and Associated Physician Practices is amultiple site organization consisting of ambulatory clinics and hospital sitesin [place], [place], [place] and [place]. This disclosure is being madepursuant to the Care Everywhere program and may not contain all information available regarding this patient. Last updated 17.[facility] Allergies No known active allergies Medications * [...] Diagnosed Date Elevated LFTs 09/06/2017 History of DC (myocardial infarction) 09/06/2017 Overview (09/07/2017): Echo 09/2013 [...] of Treatment Not on file Care Teams Store Operations Specialist Relationship Specialty Start Date End Date Tristin Ghotra MD [address] [facility] [address] [place] [address] PCP - General 04/04/12
--- OUTSIDE RECORDS SUMMARY | 2024-03-10 21:24 | XMS_ITS | Encounter Summary ---
Author Organization [facility] Address [address] [place] [address] Care Team Providers Care Home Care Aide Name Role Phone Tristin Ghotra MD Primary Care Provider [phone] Reason for Visit * Reason Onset Date Comments Consent 05/27/2019 Pt. voiced under standing of TELEmed and gave verbal consent. Encounter Details Date Type Department Care Team (Late st Contact Info) Description 05/27/2019 Telephone [facility] - [address], [facility] [address] [place] [address] Matt Armstrong MD [address] [place] [id number] Consent (Pt. voiced understanding of TELEmed [...] on filedocumented in this encounter Care Teams Home Care Aide Relationship Specialty Start Date End Date Tristin Ghotra MD [address] [place] [address] [address] [place] [phone] PCP - General 04/04/12 documented as of this encounter
--- OUTSIDE RECORDS SUMMARY | 2024-03-10 21:24 | XMS_ITS | Encounter Summary ---
Author Organization [facility] Address [address] [place] [address] Care Team Providers Care Sales Engagement Manager Name Role Phone Tristin Ghotra MD Primary Care Provider [phone] Reason for Visit * Reason Comments Follow-up Encounter Details Date Type Department Care Team ([facility] Contact Info) Description 12/05/2019 12:00 PM CDT Office Visit [facility] - [address], [facility] [address] [place] [phone] Matt Armstrong MD [address] [place] [address] [place] [address] Spontaneous dissection of coronary artery (Primary Dx); Essential hypertension; History of [place] (myocardial infarction); S/P coronary [...] Exercise - Works out on a Max Board Liner Operator 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 Also does light weights and stretch bands. Takes her time, but whole workout takes up to 2.5 hours. Heartburn worse despite no ASA frequently. No bowel or bladder troubles. Menses are irregular, lessheavy but more persistent - Submarine Worker follow-up planned. Comprehensive system review is otherwise [...] of coronary artery Essential hypertension History of [place] (myocardial infarction) S/P coronary [...] 9. Taking Spironolactone at high dose per Drag Down for hair loss and scalp yeast. 10. [...] in 12 mo. Matt Armstrong III, MD, [facility] [email or web address] documented in this encounter Plan of Treatment Not on file documented as of this encounter Visit Diagnoses Diagnosis Spontaneous dissection of coronary artery- Primary Essential hypertension History of [place] (myocardial infarction) Old myocardial infarction S/P coronary artery stent placement Postsurgical percutaneous transluminal coronary angioplasty status History of near syncope Personal history of other specified diseases Elevated LFTs Other abnormal blood chemistry documented in this encounter Care Teams Sales Engagement Manager Relationship Specialty Start Date End Date Tristin Ghotra MD [address] [place] [address] [address] [place] [phone] PCP - General 04/04/12 documented as of this encounter
--- OUTSIDE RECORDS SUMMARY | 2024-03-10 21:24 | XMS_ITS | Encounter Summary ---
Author Organization [facility] Address [address] [place] [address] Care Team Providers Care Telephone Assembler Name Role Phone Tristin Ghotra MD Primary Care Provider [phone] Reason for Visit * Reason Comments Follow-up Encounter Details Date Type Department Care Team (Late Contact Info) Description 10/09/2018 12:15 PM CDT Office Visit [facility] - [address], [facility] [address] [place] [phone] Matt Armstrong MD [address] [place] [address] [place] [address] Spontaneous dissection of coronary artery (Primary Dx); Essential hypertension; S/P coronary artery stent placement; History of [place] (myocardial infarction); Insomnia, unspecified type; Elevated LFTs; [...] troubles. Menses are regular but heavy - Shirt Trimmer has advised a diagnostic study. Comprehensive system review is otherwise negative for constitutional, HENT, eyes, neck, musculoskeletal, derm, neuro, cardiovascular, pulmonary, extremities, vascular, endocrine, GI, . Patient Active Problem List Diagnosis Date Noted ??? Elevated LFTs 09/06/2017 Priority: Not Prioritized ??? History of [place] (myocardial infarction) 09/06/2017 Priority: Not Prioritized Echo [...] file Gets together: Not on file Attends mu-ism service: Not on file Active member of [...] born in 2004. 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 Family History Problem [...] S/P coronary artery stent placement History of [place] (myocardial infarction) Insomnia, unspecified type Elevated LFTs [...] 6. Taking Spironolactone at high dose per Station Cleaning Porter for hair loss and scalp yeast. 7. [...] mo. Matt Armstrong III, MD, [facility] [email or web address] * Roxanne Epperson - 10/09/2018 12:06 PM [...] percutaneous transluminal coronary angioplasty status History of [place] (myocardial infarction) Old myocardial infarction Insomnia, unspecified type Elevated LFTs Other abnormal blood chemistry History of near syncope Personal history of other specified diseases documented in this encounter Care Teams Telephone Assembler Relationship Specialty Start Date End Date Tristin Ghotra MD [address] [place] [address] [address] [place] [address] PCP - General 04/04/12 documented as of this encounter
--- OUTSIDE RECORDS SUMMARY | 2024-03-10 21:24 | XMS_ITS | Encounter Summary ---
Author Organization [facility] Address [address] [facility] [address] Care Team Providers Care Tax Examining Technician Name Role Phone Tristin Ghotra MD Primary Care Provider [phone] Encounter Details Date Type Department Care Team [...] on filedocumented in this encounter Care Teams Tax Examining Technician Relationship Specialty Start Date End Date Tristin Ghotra MD [address] [place] [address] [address] [place] [address] PCP - General 04/04/12 documented as of this encounter
--- OUTSIDE RECORDS SUMMARY | 2024-03-10 21:24 | XMS_ITS | Patient Health Summary ---
Author Organization [facility] Address [address] [facility] [place] [address] Care Team Providers Care Mash Tub Cooker Operator Name Role Phone Tristin Ghotra MD Primary Care Provider [phone] Note from [facility],non-owned Affiliates and Associated Physician Practices is amultiple site organization consisting of ambulatory clinics and hospital sitesin [place], [place], [place] and [place]. This disclosure is being madepursuant to the Care Everywhere program and may not contain all information available regarding this patient. Last updated 17.[facility] Allergies No known active allergies Medications [...] Diagnosed Date Elevated LFTs 09/06/2017 History of [place] (myocardial infarction) 09/06/2017 Spontaneous dissection of coronary [...] No Growth of Methicillin Resistant Staphylococcus aureus. [facility] Nasopharyngeal 09/19/2013 5: 20 PM CDT 09/19/2013 9:27 PM CDT Narrative [facility] - 09/21/2013 11:19 AM CDT AndersonSpecimen#[id number] Joselito Loc/Rm/Bed: ICU/ICU/01 Historical Provider LAB - MICROBIOLOG Y ORDERABLES Performing Organization Address City/State/[facility] Co de Phone Number [facility] [address] [phone] * CARDIAC CATHETERIZATION, LEFT (09/19/2013) Provider Unknown GENERIC SURGICAL HIS TORY Care Teams Mash Tub Cooker Operator Relationship Specialty Start Date End Date Tristin Ghotra MD [address] [place] [address] [place] [address] [place] [address] PCP - General 04/04/12
--- OUTSIDE RECORDS SUMMARY | 2024-03-10 21:24 | XMS_ITS | Encounter Summary ---
Author Organization [facility] Address [address] [facility] [place] [address] Care Team Providers Care Lawn Sprinkler Installer Name Role Phone Tristin Ghotra MD Primary Care Provider [phone] Reason for Visit * Reason Onset Date Comments Erroneous encounter-disregard 11/21/2018 MEDICATION REFILL 11/21/2018 Encounter Details Date Type Department Care Team (Late st Contact Info) Description 11/21/2018 Refill [facility] - [address], [facility] [address] [place] [phone] Matt Armstrong MD [address] [place] [address] Erroneous encounter-disregard; MEDICATION REFILL Social History [...] Miscellaneous Notes * Telephone Encounter - Roxanne Epperosn - 11/21/2018 9:16 AM CDT Erroneous encounter [...] on filedocumented in this encounter Care Teams Lawn Sprinkler Installer Relationship Specialty Start Date End Date Tristin Ghotra MD [address] [facility] [address] [place] [address] PCP - General 04/04/12 documented as of this encounter
--- OUTSIDE RECORDS SUMMARY | 2024-03-10 21:24 | XMS_ITS | Encounter Summary ---
Author Organization [facility] Address [address] [place] [address] Care Team Providers Care Machine Wood Sander Name Role Phone Tristin Ghotra MD Primary Care Provider [phone] Encounter Details Date Type Department Care Team [...] on filedocumented in this encounter Care Teams Machine Wood Sander Relationship Specialty Start Date End Date Tristin Ghotra MD [address] [place] [address] [address] [place] [address] PCP - General 04/04/12 documented as of this encounter
--- OUTSIDE RECORDS SUMMARY | 2024-03-10 21:24 | XMS_ITS | Encounter Summary ---
Author Organization [facility] Address [address] [facility] [place] [address] Care Team Providers Care Agricultural Researcher Name Role Phone Tristin Ghotra MD Primary Care Provider [phone] Reason for Visit * Reason Onset Date Comments Results 04/11/2018 Sleep study Encounter Details Date Type Department Care Team (Late st Contact Info) Description 04/11/2018 Telephone [facility] - [address], [facility] [address] [place] [phone] Matt Armstrong MD [address] [place] [address] Results (Sleep study) Social History Tobacco [...] was pleased and thanked me for calling. [employer] documented in this encounter Plan of Treatment Not on file documented as of this encounter Visit Diagnoses Not on filedocumented in this encounter Care Teams Agricultural Researcher Relationship Specialty Start Date End Date Tristin Ghotra MD [address] [facility] [address] [place] [address] PCP - General 04/04/12 documented as of this encounter
--- OUTSIDE RECORDS SUMMARY | 2024-03-10 21:24 | XMS_ITS | Encounter Summary ---
Author Organization [facility] Address [address] [place] [address] Care Team Providers Care Investigation Specialist Name Role Phone Tristin Ghotra MD Primary Care Provider [phone] Reason for Visit * Reason Comments Follow-up Encounter Details Date Type Department Care Team (Late st Contact Info) Description 05/30/2019 12:00 PM CDT Video Visit [facility] - [address], [facility] [address] [place] [phone] Matt Armstrong MD [address] [place] [address] [place] [address] Spontaneous dissection of coronary artery ; Essential hypertension; S/P coronary artery stent placement; History of near syncope; History of [place] (myocardial infarction); Elevated LFTs Social History Tobacco [...] consent for today's telehealth visit supported by [employer] secure platform. Weight up 1 lb since [...] Exercise - Works out on a Max Blakeslee the last 3 months. She does not like it. Does 30 min 4d/week. No bowel or bladder troubles. Menses are regular but heavy - Psychology Professor has advised a diagnostic study. Comprehensive system [...] file Gets together: Not on file Attends roman catholic service: Not on file Active member of [...] born in 2004. 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 Family History [...] placement History of near syncope History of [place] (myocardial infarction) Elevated LFTs 1. Spontaneous Coronary [...] 10. Taking Spironolactone at high dose per Engine Repair Supervisor for hair loss and scalp yeast. 11. [...] mo. Matt Armstrong III, MD, [facility] www.[email or web address] * Roxanne Epperson - 05/30/2019 11:27 AM [...] history of other specified diseases History of [place] (myocardial infarction) Old myocardial infarction Elevated LFTs Other abnormal blood chemistry documented in this encounter Care Teams Investigation Specialist Relationship Specialty Start Date End Date Tristin Ghotra MD [address] [place] [address] 140 [place] [address] PCP - General 04/04/12 documented as of this encounter
--- OUTSIDE RECORDS SUMMARY | 2024-03-10 21:24 | XMS_ITS | Encounter Summary ---
Author Organization [facility] Address [address] [facility] [place] [address] Care Team Providers Care Medical Unit Secretary Name Role Phone rTistin Ghotra MD Primary Care Provider [phone] Reason for Visit * Reason Comments Refill Request Encounter Details Date Type Department Care Team (Late st Contact Info) Description 05/16/2018 Refill [facility] - [address], [place] [address] [place] [address] Matt Armstrong MD [address] [place] [address] Refill Request Social History Tobacco Use [...] on filedocumented in this encounter Care Teams Medical Unit Secretary Relationship Specialty Start Date End Date Tristin Ghotra MD [address] [place] [address] 140 [place] [address] PCP - General 04/04/12 documented as of this encounter
--- OUTSIDE RECORDS SUMMARY | 2024-03-10 21:24 | XMS_ITS | Encounter Summary ---
Author Organization [facility] Address [address] [place] [address] Care Team Providers Care Medical Device Assembler Name Role Phone Tristin Ghotra MD Primary Care Provider [phone] Reason for Visit * Reason Comments Follow-up Encounter Details Date Type Department Care Team (Late Contact Info) Description 04/10/2018 12:30 PM DIRECTOR COMPENSATION Office Visit [facility] - [address], [facility] [address] [place] [phone] Matt Armstrong MD [address] [place] [address] [place] [address] Spontaneous dissection of coronary artery (Primary Dx); Essential hypertension; Elevated LFTs; History of [place] (myocardial infarction); S/P coronary [...] Comments Blood Pressure 119/82 04/10/2018 12:28 PM DIRECTOR COMPENSATION Pulse 61 04/10/2018 12:28 PM DIRECTOR COMPENSATION Temperature - - Respiratory Rate - - Oxygen Saturation 97% 04/10/2018 12:28 PM DIRECTOR COMPENSATION Inhaled Oxygen Concentration - - Weight 70.3 kg (155 lb) 04/10/2018 12:28 PM DIRECTOR COMPENSATION Height 175.3 cm (5' 9 ) 04/10/2018 12:28 PM DIRECTOR COMPENSATION Body Mass Index 22.89 04/10/2018 12:28 PM DIRECTOR COMPENSATION documented in this encounter Progress Notes * Roxanne Epperson - 04/10/2018 12:28 PM CST 10 week f/u Weight same as last OV Systolic BP usually upper 130s No recent syncope/presyncope CTOR COMPENSATION * Matt Armstrong MD - 03/03/2018 9:19 AM CST Images from the original note were not included. Chief Complaint Patient presents with ??? Follow-up History of Present Illness Paola Mckeon is a 43 y.o. female, who follows routinely for HTN, prior near syncope and prior MD and stenting due to spontaneous coronary dissection [...] artery Essential hypertension Elevated LFTs History of [place] (myocardial infarction) S/P coronary [...] agrees to check back in with her Condenser Tube Tender. 11. Routine f/u in 6 mo. Matt Armstrong III, MD, [facility] [email or web address] CTOR COMPENSATION documented in this encounter Plan of Treatment Not on file documented as of this encounter Visit Diagnoses Diagnosis Spontaneous dissection of coronary artery- Primary Essential hypertension Elevated LFTs Other abnormal blood chemistry History of [place] (myocardial infarction) Old myocardial infarction S/P coronary artery stent placement Postsurgical percutaneous transluminal coronary angioplasty status History of near syncope Personal history of other specified diseases documented in this encounter Care Teams Medical Device Assembler Relationship Specialty Start Date End Date Tristin Ghotra MD [address] [place] [address] 140 [place] [address] PCP - General 04/04/12 documented as of this encounter
--- OUTSIDE RECORDS SUMMARY | 2024-03-10 21:24 | XMS_ITS | Encounter Summary ---
Author Organization [facility] Address [address] [facility] [place] [address] Care Team Providers Care Wholesale And Retail Merchant Name Role Phone Tristin Ghotra MD Primary Care Provider [phone] Encounter Details Date Type Department Care Team (Late st Contact Info) Description 05/07/2018 Orders Only [facility] [address], [place] [address] [place] [address] ProviderYahir MD Social History Tobacco [...] on filedocumented in this encounter Care Teams Wholesale And Retail Merchant Relationship Specialty Start Date End Date Tristin Ghotra MD [address] [place] [address] [place] [address] [place] [address] PCP - General 04/04/12 documented as of this encounter
--- OUTSIDE RECORDS SUMMARY | 2024-03-10 21:24 | XMS_ITS | Encounter Summary ---
Author Organization [facility] Address [address] [facility] [place] [address] Care Team Providers Care Grooving Machine Operator Name Role Phone Tristin Ghotra MD Primary Care Provider [phone] Reason for Visit * Reason Onset Date Comments MEDICATION REFILL 11/21/2018 Encounter Details Date Type Department Care Team (Late st Contact Info) Description 11/21/2018 [facility] - [address], [facility] [address] [place] [phone] Matt Armstrong MD [address] [place] [address] MEDICATION REFILL Social History Tobacco Use [...] on filedocumented in this encounter Care Teams Grooving Machine Operator Relationship Specialty Start Date End Date Tristin Ghotra MD [address] [place] [address] 140 [place] [address] PCP - General 04/04/12 documented as of this encounter
--- OUTSIDE RECORDS SUMMARY | 2024-03-10 21:25 | XMS_ITS | Encounter Summary ---
Author Organization [facility] Address [address] [facility] [place] [address] Care Team Providers Care Curbing Stonecutter Name Role Phone Tristin Ghotra MD Primary Care Provider [phone] Reason for Visit * Reason Onset Date Comments Update 10/02/2017 Blood Pressure Encounter Details Date Type Department Care Team (Late st Contact Info) Description 10/02/2017 Telephone [facility] - [address], [facility] [address] [place] [address] Matt Armstrong MD [address] [place] [address] Update (Blood Pressure) Social History Tobacco [...] on filedocumented in this encounter Care Teams Curbing Stonecutter Relationship Specialty Start Date End Date Tristin Ghotra MD [address] [place] [address] 140 [place] [address] PCP - General 04/04/12 documented as of this encounter
--- OUTSIDE RECORDS SUMMARY | 2024-03-10 21:25 | XMS_ITS | Encounter Summary ---
Author Organization [facility] Address [address] [place] [address] Care Team Providers Care Towboat Pilot Name Role Phone Tristin Ghotra MD Primary Care Provider [phone] Encounter Details Date Type Department Care Team (Late st Contact Info) Description 04/19/2012 Hospital Outpatient Visit Historic [facility] DEFAULT [address] [place] [address] Caro Pa MD [facility] [address] [place] [address] Social History Tobacco Use Types Packs/Day Years Used Date Smoking Tobacco: Never Assessed Sex and Gender Information Value Date Recorded Sex Assigned at Not on file Gender Identity Not on file Sexual Orientation Not on file documented as of this encounter Plan of Treatment Not on file documented as of this encounter Visit Diagnoses Not on filedocumented in this encounter Care Teams Towboat Pilot Relationship Specialty Start Date End Date Tristin Ghotra MD [address] [place] [address] [address] [place] [phone] PCP - General 04/04/12 documented as of this encounter
--- OUTSIDE RECORDS SUMMARY | 2024-03-10 21:25 | XMS_ITS | Encounter Summary ---
Author Organization [facility] Address [address] [facility] [place] [address] Care Team Providers Care Retail General Manager Name Role Phone Tristin Ghotra MD Primary Care Provider [phone] Reason for Visit * Reason Onset Date Comments MEDICATION REFILL 10/03/2017 Encounter Details Date Type Department Care Team (Late st Contact Info) Description 10/03/2017 Refill [facility] - [address], [facility] [address] [place] [phone] Matt Armstrong MD [address] [place] [address] MEDICATION REFILL Social History Tobacco Use [...] on filedocumented in this encounter Care Teams Retail General Manager Relationship Specialty Start Date End Date Tristin Ghotra MD [address] [place] [address] 140 [place] [address] PCP - General 04/04/12 documented as of this encounter
--- OUTSIDE RECORDS SUMMARY | 2024-03-10 21:25 | XMS_ITS | Encounter Summary ---
Author Organization [facility] Address [address] [place] [address] Care Team Providers Care Industrial Production Manager Name Role Phone Tristin Ghotra MD Primary Care Provider [phone] Reason for Visit * Reason Comments Establish Care Encounter Details Date Type Department Care Team (Late st Contact Info) Description 09/06/2017 8:30 AM CDT Office Visit [facility] - [address], [facility] [address] [place] [phone] Matt Armstrong MD [address] [place] [address] [place] [address] Spontaneous dissection of coronary artery (Primary Dx); Essential hypertension; History of [place] (myocardial infarction); Elevated LFTs; S/P coronary artery [...] about eight months ago - went to [place] ([place], [place]) ER * Matt Armstrong MD - [...] nausea. Went to , then promptly to [facility] where she was told she had a [...] and jaundice. Sees Dr. Hager (GI) in [place] and [place] (GI). Several liver biopsies have been inconclusive. Denies recent itching or jaundice. States bowels lately normal. But has abd bloating immediately after eating or drinking. Has beenRx'd an inhaler, but she has not used it. PFTs were thought OK. Has some increased flow lately w/ menses and planning Customer Service Technician visit soon. Otherwise, constitutional, HENT/neck, eyes, endocrine, CV, pulmonary, GI, , neuro, derm, heme, MSK, extremities are all negative. Patient Active Problem List Diagnosis Date Noted ??? Elevated LFTs 09/06/2017 Priority: Not Prioritized ??? History of [place] (myocardial infarction) 09/06/2017 Priority: Not Prioritized ??? [...] born in 2003. 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 She agrees to get back to moderate [...] angina, and has a known normal EF post-NV, no B-dylan is very reasonable. 10. Continue Ramipril. She is aware of precautions and prefers to continue it. She agreesto stop Ramipril immediately should she possibly be . 11. She will get a BP cuff and keep a home log. Numbers to us in a week. 12. Will request admission records from [place] and stenting admission. 13. Will attempt to find latest labs. 14. Spell of near passing out in early 2018 sounds vagal, as had been previously suggested to her. I advised of physiology, common occurrence, avoidance tactics and maneuvers. Stay well hydrated. 15. She agrees to check back in with her Weapons Designer. 16. Routine f/u with us in 6 weeks, or anytime sooner with concerns. Matt Armstrong III, MD, [facility] documented in this encounter Plan of Treatment Not on file documented as of this encounter Visit Diagnoses Diagnosis Spontaneous dissection of coronary artery- Primary Essential hypertension History of [place] (myocardial infarction) Old myocardial infarction Elevated LFTs Other abnormal blood chemistry S/P coronary artery stent placement Postsurgical percutaneous transluminal coronary angioplasty status History of near syncope Personal history of other specified diseases documented in this encounter Care Teams Industrial Production Manager Relationship Specialty Start Date End Date Tristin Ghotra MD [address] [place] [address] [address] [place] [address] PCP - General 04/04/12 documented as of this encounter
--- OUTSIDE RECORDS SUMMARY | 2024-03-10 21:25 | XMS_ITS | Encounter Summary ---
Author Organization [facility] Address [address] [place] [address] Care Team Providers Care Pharmacy Retail Support Specialist Name Role Phone Tristin Ghotra MD Primary Care Provider [phone] Reason for Visit * Reason Comments Follow-up Encounter Details Date Type Department Care Team (Late Contact Info) Description 12/14/2017 11:30 AM CDT Office Visit [facility] - [address], [facility] [address] [place] [phone] Matt Armstrong MD [address] [place] [address] [place] [address] Spontaneous dissection of coronary artery (Primary Dx); Essential hypertension; History of [place] (myocardial infarction); S/P coronary artery stent placement; [...] born in 2003. 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 Family History [...] Essential hypertension History of [place] (myocardial infarction) S/P coronary artery stent placement [...] agrees to check back in with her Labor Supervisor. 9. Routine f/u with us in 10 weeks. Matt Armstrong III, MD, [employer] [email or web address] documented in this encounter Plan of Treatment Not on file documented as of this encounter Visit Diagnoses Diagnosis Spontaneous dissection of coronary artery- Primary Essential hypertension History of [place] (myocardial infarction) Old myocardial infarction S/P coronary artery stent placement Postsurgical percutaneous transluminal coronary angioplasty status History of near syncope Personal history of other specified diseases documented in this encounter Care Teams Pharmacy Retail Support Specialist Relationship Specialty Start Date End Date Tristin Ghotra MD [facility] [address] [place] [address] PCP - General 04/04/12 documented as of this encounter
--- OUTSIDE RECORDS SUMMARY | 2024-03-10 21:25 | XMS_ITS | Encounter Summary ---
Author Organization [facility] Address [address] [place] [address] Care Team Providers Care Checkering Machine Operator Name Role Phone Tristin Ghotra MD Primary Care Provider [phone] Reason for Visit * Reason Comments Follow-up Encounter Details Date Type Department Care Team ([facility] Contact Info) Description 10/18/2017 12:30 PM CDT Office Visit [facility] - [address], [facility] [address] [place] [phone] Matt Armstrong MD [address] [place] [address] [place] [address] Spontaneous dissection of coronary artery (Primary Dx); Essential hypertension; History of [place] (myocardial infarction); History of near syncope; S/P [...] for HTN, prior near syncope and prior [place] and stenting due to spontaneous coronary dissection [...] 09/06/2017 Priority: Not Prioritized ??? History of [place] (myocardial infarction) 09/06/2017 Priority: Not Prioritized Echo [...] born in 2003. 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 Family History [...] of coronary artery Essential hypertension History of [place] (myocardial infarction) History of near syncope S/P [...] angina, and has a known normal EF post-FL, no B-dylan is very reasonable. 6. When she started Nifedipine, patient elected to stop Ramipril. 7. She is planning to start exercise w/ setObjectn osmar and spin for exercise. 8. She [...] agrees to check back in with her Coloring Room Worker. 12. Routine f/u with us in 8 weeks. She will call me in a week w/ update on exercise and symptoms. Matt Armstrong III, MD, [facility] [email or web address] * Roxanne Epperson - 10/18/2017 12:46 PM [...] coronary artery- Primary Essential hypertension History of [place] (myocardial infarction) Old myocardial infarction History of near syncope Personal history of other specified diseases S/P coronary artery stent placement Postsurgical percutaneous transluminal coronary angioplasty status documented in this encounter Care Teams Checkering Machine Operator Relationship Specialty Start Date End Date Tristin Ghotra MD [address] [facility] [address] [place] [address] PCP - General 04/04/12 documented as of this encounter
--- OUTSIDE RECORDS SUMMARY | 2024-03-10 21:29 | XMS_ITS | Clinical Summary ---
Author Organization [facility] Address [address] [place] [address]. [place], [place] [address] [place] [address] Care Team Providers Care Channeling Machine Runner Name Role Phone Tristin Ghotra MD Primary Care Provider [phone] Medications No known medications Social History Tobacco [...] patient's age to complete this topic Insurance [facility] Care Teams Channeling Machine Runner Relationship Specialty Start Date End Date Tristin Ghotra MD [address] [facility] [address] [place] [address] PCP - General 02/18/13
--- OUTSIDE RECORDS SUMMARY | 2024-03-10 21:29 | XMS_ITS | Encounter Summary ---
Author Organization [facility] Address [address] [place] [address]. [place], [place] [address] [place] [address] Care Team Providers Care Breaker Mechanic Name Role Phone Tristin Ghotra MD Primary Care Provider [phone] Encounter Details Date Type Department Care Team [...] on filedocumented in this encounter Care Teams Breaker Mechanic Relationship Specialty Start Date End Date Tristin Ghotra MD [address] [place] [address] PCP - General 02/18/13 documented as of this encounter
--- OUTSIDE RECORDS SUMMARY | 2024-03-10 21:29 | XMS_ITS | Encounter Summary ---
Author Organization [facility] Address [address] [place] [address]. [place], [place] [phone] [place] [address] Care Team Providers Care Sociocultural Anthropology Professor Name Role Phone Tristin De Leon MD Primary Care Provider [phone] Reason for Referral * Imaging (Routine) - Closed Specialty Diagnoses / Procedures Referred By George cr Referred To Contact RADIOLOGY Diagnoses Microscopic hematuria Other microscopic hematuria Procedures CT ABD+PEL WWO CON Tristin De Leon MD [address] [place] [address] Phone: tel: fax: Referral ID Status Reason Start Date Expiration Date Visits Re quested Visits Authorized [id number] Closed 05/15/2023 11/11/2023 1 1 Reason for Visit * Imaging (Routine) - Closed Specialty Diagnoses / Procedures Referred By Contsavita t Referred To Contact RADIOLOGY Diagnoses Microscopic hematuria Other microscopic hematuria Procedures CT ABD+PEL WWO CON Tristin De Leon MD [address] [place] [address] Phone: tel: fax: Referral ID Status Reason Start Date Expiration Date Visits Re quested Visits Authorized [id number] Closed 05/15/2023 11/11/2023 1 1 Encounter Details Date Type Department Care Team (Latest Contact Info) Description 05/20/2023 2:02 PM CDT - 05/20/2023 11:59 PM CDT Hospital Encounter [facility] [address] [place] [address] Tristin De Leon MD 331 [facility] [address] [place] [address] Discharge Disposition: Home or Self [...] Arm documented in this encounter Care Teams Sociocultural Anthropology Professor Relationship Specialty Start Date End Date Tristin De Leon MD 331 [facility] [address] [place] [address] PCP - General 02/18/13 documented as of this encounter
--- OUTSIDE RECORDS SUMMARY | 2024-03-10 21:29 | XMS_ITS | Encounter Summary ---
Author Organization [facility] Address [address] [place] [address]. [place], [place] [address] [place] [address] Care Team Providers Care Digital Strategy Specialist Name Role Phone Tristin Ghotra MD Primary Care Provider [phone] Encounter Details Date Type Department Care Team [...] filedocumented in this encounter Care Teams Digital Strategy Specialist Relationship Specialty Start Date End Date Tristin Ghotra MD [address] [facility] [address] [place] [address] PCP - General 02/18/13 documented as of this encounter
--- OUTSIDE RECORDS SUMMARY | 2024-03-10 21:29 | XMS_ITS | Encounter Summary ---
Author Organization [facility] Address [address] [place] [address]. [place], [place] [address] [place] [address] Care Team Providers Care Cyber Security Systems Engineer Name Role Phone Tristin De Leon MD Primary Care Provider [phone] Reason for Referral * Imaging (Routine) - Closed Specialty Diagnoses / Procedures Referred By George cr Referred To Contact RADIOLOGY Diagnoses Abnormal levels of other serum enzymes Procedures US ABD LIMITED Tristin De Leon MD [address] [facility] [address] [place] [address] Phone: tel: fax: Referral ID Status Reason Start Date Expiration Date Visits Re quested Visits Authorized [id number] Closed 04/07/2023 04/07/2024 1 1 Reason for Visit * Imaging (Routine) - Closed Specialty Diagnoses / Procedures Referred By Geogre cr Referred To Contact RADIOLOGY Diagnoses Abnormal levels of other serum enzymes Procedures US ABD LIMITED Tristin De Leon MD [address] [place] [address] Phone: tel: fax: Referral ID Status Reason Start Date Expiration Date Visits Re quested Visits Authorized [id number] Closed 04/07/2023 04/07/2024 1 1 Encounter Details Date Type Department Care Team (Latest Contact Info) Description 05/26/2023 9:58 AM CDT - 05/26/2023 11:59 PM CDT Hospital Encounter [facility] [address] [address] Tristin De Leon MD [address] [place] [address] Discharge Disposition: Home or Self [...] enzymes documented in this encounter Care Teams Cyber Security Systems Engineer Relationship Specialty Start Date End Date Tristin De Leon MD [address] [place] [address] [address] [place] [phone] PCP - General 02/18/13 documented as of this encounter
--- OUTSIDE RECORDS SUMMARY | 2024-03-10 21:29 | XMS_ITS | Encounter Summary ---
Author Organization [facility] Address [address] [place] [address]. [place], [place] [address] [place] [address] Care Team Providers Care Supervisor Die Casting Name Role Phone Tristin Ghotra MD Primary Care Provider [phone] Encounter Details Date Type Department Care Team [...] filedocumented in this encounter Care Teams Supervisor Die Casting Relationship Specialty Start Date End Date Tristin Ghotra MD [address] [place] [address] PCP - General 02/18/13 documented as of this encounter
--- OUTSIDE RECORDS SUMMARY | 2024-03-10 21:30 | XMS_ITS | Encounter Summary ---
Author Organization [facility] Address [address] [place] [address]. [place], [place] [address] [place] [address] Care Team Providers Care Inspector Firearms Name Role Phone Tristin Ghotra MD Primary Care Provider [phone] Encounter Details Date Type Department Care Team (Late st Contact Info) Description 02/18/2013 [facility] [address] [facility] [place] [address] Humphrey Mcgraw MD [address] [place] [address] Social History Tobacco Use Types Packs/Day Years [...] loss documented in this encounter Care Teams Inspector Firearms Relationship Specialty Start Date End Date Tristin Ghotra MD [address] [place] [address] PCP - General 02/18/13 documented as of this encounter
--- OUTSIDE RECORDS SUMMARY | 2024-03-10 21:30 | XMS_ITS | Encounter Summary ---
Author Organization [facility] Address [address] [place] [address]. [place], [place] [address] [place] [address] Care Team Providers Care Biochemistry Specialist Name Role Phone Tristin Ghotra MD Primary Care Provider [phone] Reason for Referral * Imaging (Routine) - Closed Specialty Diagnoses / Procedures Referred By Contac t Referred To Contact RADIOLOGY Diagnoses Lymphadenopathy Shortness of breath Night sweats Procedures CT CHEST W CON CT CHEST W Bryant Hernandez MD [address] [place] [address] Phone: tel: fax: Referral ID Status Reason Start Date Expiration Date Visits Re quested Visits Authorized [id number] Closed 08/19/2020 11/17/2020 1 1 * Imaging (Routine) - Closed Specialty Diagnoses / Procedures Referred By Contac t Referred To Contact RADIOLOGY Diagnoses Lymphadenopathy Shortness of breath Night sweats Procedures CT SOFT TISSUE NECK W CON CT SOFT TISSUE NECK W CON Bryant Ochoa MD [address] [place] [address] Phone: tel: fax: Referral ID Status Reason Start Date Expiration Date Visits Re quested Visits Authorized [id number] Closed 08/19/2020 11/17/2020 1 1 Reason for Visit * Imaging (Routine) - Closed Specialty Diagnoses / Procedures Referred By Contac t Referred To Contact RADIOLOGY Diagnoses Lymphadenopathy Shortness of breath Night sweats Procedures CT SOFT TISSUE NECK W CON CT SOFT TISSUE NECK W CON Bryant Ochoa MD [address] [place] [address] Phone: tel: fax: Referral ID Status Reason Start Date Expiration Date Visits Re quested Visits Authorized [id number] Closed 08/19/2020 11/17/2020 1 1 Encounter Details Date Type Department Care Team (Latest Contact Info) Description 08/21/2020 3:06 PM CDT - 08/21/2020 11:59 PM CDT Hospital Encounter [facility] CT [address] [facility] [address] [place], [place] [id number] Bryant Ochoa MD [address] [place] [address] Discharge Disposition: Home or Self Care [...] Arm documented in this encounter Care Teams Biochemistry Specialist Relationship Specialty Start Date End Date Tristin Ghotra MD [address] [facility] [address] [place] [address] PCP - General 02/18/13 documented as of this encounter
--- OUTSIDE RECORDS SUMMARY | 2024-03-10 21:30 | XMS_ITS | Encounter Summary ---
Author Organization [facility] Address [address] [place] [address]. [place], [place] [address] [place] [address] Care Team Providers Care Precision Agriculture Specialist Name Role Phone Tristin Ghotra MD Primary Care Provider [phone] Reason for Referral * Imaging (Routine) - Closed Specialty Diagnoses / Procedures Referred By Contac t Referred To Contact RADIOLOGY Diagnoses Neck mass Procedures US SOFT TISS HEAD OR NECK Bryant Ochoa MD [address] [place] [address] Phone: tel: fax: Referral ID Status Reason Start Date Expiration Date Visits Re quested Visits Authorized [id number] Closed 08/09/2021 09/09/2022 1 1 Reason for Visit * Imaging (Routine) - Closed Specialty Diagnoses / Procedures Referred By Contac t Referred To Contact RADIOLOGY Diagnoses Neck mass Procedures US SOFT TISS HEAD OR NECK Bryant Ochoa MD [address] [place] [address] Phone: tel: fax: Referral ID Status Reason Start Date Expiration Date Visits Re quested Visits Authorized [id number] Closed 08/09/2021 09/09/2022 1 1 Encounter Details Date Type Department Care Team (Latest Contact Info) Description 08/20/2021 3:20 PM CDT - 08/20/2021 11:59 PM CDT Hospital Encounter [place] [address] Bryant Ochoa MD [facility] [address] [id number] Discharge Disposition: Home or Self Care (Routine [...] neck documented in this encounter Care Teams Precision Agriculture Specialist Relationship Specialty Start Date End Date Tristin Ghotra MD [address] [facility] [address] [place] [address] PCP - General 02/18/13 documented as of this encounter
--- OUTSIDE RECORDS SUMMARY | 2024-03-10 21:30 | XMS_ITS | Encounter Summary ---
Author Organization [facility] Address [address] [place] [address]. [place], [place] [address] [place] [address] Care Team Providers Care Metallurgical Analyst Name Role Phone Tristin Ghotra MD Primary Care Provider [phone] Encounter Details Date Type Department Care Team [...] on filedocumented in this encounter Care Teams Metallurgical Analyst Relationship Specialty Start Date End Date Tristin Ghotra MD [address] [facility] [address] [place] [address] PCP - General 02/18/13 documented as of this encounter
--- OUTSIDE RECORDS SUMMARY | 2024-03-10 21:34 | XMS_ITS | Clinical Summary ---
Author Organization [facility] Address [facility] [place] [address] Care Team Providers Care Rn Building Name Role Phone Tristin Ghotra MD Primary Care Provider [phone] Allergies No known active allergies Medications aspirin 81 mg tablet take 1 tablet by oral route every day 0 0 4 Active amLODIPine (NORVASC) 5 mg tablet amlodipine 5 mg tablet TAKE 1 TABLET BY MOUTH EVERY DAY Active albuterol HFA (PROVENTIL HFA,VENTOLIN HFA,PROAIR HFA) 90 mcg/actuation inhaler albuterol sulfate HFA 90 mcg/actuation aerosol inhaler Active inhalational spacing device (OptiChamber Tasha [facility] spacer 1 Device daily 1 each 2 [...] Department Care Team Description 03/06/2024 Orders Only [facility] Cardiology [address] [place] [address] Cristopher Lipscomb MD 12/19/2023 Telephone [facility] Specialty Services [address] [place] [address] Miscellaneous, Not In File from Last 3 [...] on file Legal Sex Female 3:22 AM DRY ROLLER Gender Identity Female 06/27/2022 9:35 PM CDT [...] CARDIOLOGY DOCUMENT SCAN Routine 03/03/2024 8:40 AM DRY ROLLER SCREENING MAMMOGRAM BILATERAL W NADIR 12/27/2018 2:46 PM DRY ROLLER from Last 3 Months or Most Recently Relevant to Health Maintenance Results * Cardiology Document Scan (03/03/2024 8:40 AM DRY ROLLER) Anatomical Region Laterality Modality Other us Cristopher Lipscomb MD CV CARDIAC SERVICES [facility] Final Result * Screening Mammogram Bilateral W Nadir (12/27/2018 2:46 PM DRY ROLLER) Anatomical Region Laterality Modality Breast Bilateral Mammography 12/27/2018 3:37 PM DRY ROLLER Narrative 12/28/2018 10:58 AM DRY ROLLER Patient Name: RUDI MCKEON V ?Ordering Dr: Ahsan Street ?? D.O.B: 1975 ? Exam Date: 12/27/ ?? 1446 ?? Age: 43 ?Sex: Female ? MR#: [id number] ?? Loc: ? RADIOLOGY REPORT ?? Order #[id number] ?? [facility] ? Breanna Bilat [...] age 41, based on guidelines of the [place] [employer] of ?? Radiology (ACR Practice Parameter for the Performance of Screening and ?? Diagnostic Mammography) and [place] [employer] of Obstetricians and ?? Gynecologists. For women with an elevated risk of breast cancer, please refer ?? to the ACR Practice Parameter for specific screening recommendations. ? The patient will be entered into a reminder system with a target due date of 1 ?? year for her next screening exam. ? Electronically signed by: ?Sai Marcum M.D. ? ab/penrad:12/28/2018 10:58:37 ? Hand Spinner: Kisha Dinh)(M), [facility] ?? letter sent: Normal Exam ? Reading location: ?? BI-RADS: 2 Benign ? REPORT ELECTRONICALLY SIGNED IN OTHER VENDOR SYSTEM ?? Resulting Agency Comment O Procedure Note Sai Marcum MD - 12/28/2018 Patient Name: MIKERUDI Galvez Dr: Ahsan Street D.O.B: 1975 Exam Date: 12/27/18 1446 Age: 43 Sex: Female MR#: [id number] Loc: RADIOLOGY REPORT Order #[id number] [facility] Breanna Bilat Screening 3D Signed - MG [...] age 41, based on guidelines of the [place] [employer] (ACR Practice Parameter for the Performance of Screening and Diagnostic Mammography) and [place] [employer] Obstetricians and Gynecologists. For women with an elevated risk of breast cancer, pleaserefer to the ACR Practice Parameter for specific screening recommendations. The patient will be entered into a reminder system with a target due dateof 1 year for her next screening exam. Electronically signed by: Sai lyons/trish:12/28/2018 10:58:37 Hand Spinner: Kisha Dinh)(Caro), [facility] letter sent: Normal Exam Reading location: BI-RADS: 2 Benign REPORT ELECTRONICALLY SIGNED IN OTHER VENDOR SYSTEM Ahsan Street MD IMG MAMMO PROCEDURES Final R esult from Last 3 Months or Most Recently Relevant to Health Maintenance Insurance [employer] OPEN ACCESS CIGNA OPEN ACCESS CIGNA OPEN ACCESS Care Teams Rn Building Relationship Specialty Start Date End Date Tristin Ghotra MD [address] [place] [address] PCP - General 12/07/18
--- OUTSIDE RECORDS SUMMARY | 2024-03-10 21:34 | XMS_ITS | Encounter Summary ---
Author Organization [facility] Healthcare Address [address] [place] [address] Care Team Providers Care Computer Support Specialist Instructor Name Role Phone Tristin Ghotra MD Primary Care Provider [phone] Encounter Details Date Type Department Care Team (Late st Contact Info) Description 12/19/2023 Telephone [facility] Specialty Services [address] [place] [address] Miscellaneous, Not In File Social History Tobacco Use Types Packs/Day Years Used Date Smoking Tobacco: Never Alcohol Use Standard Drinks/Week Comments Yes 0 (1 standard drink = 0.6 oz pur e alcohol) Comments Unknown Sex and Gender Information Value Date Recorded Sex Assigned at Not on file Legal Sex Female 3:22 AM WATERPROOFER Gender Identity Female 06/27/2022 9:35 PM CDT Sexual Orientation Not on file documented as of this encounter Miscellaneous Notes * Telephone Encounter - Arpit Nava - 12/19/2023 8:12 AM CDT Contacted referring office requesting labs documented in this encounter Plan of Treatment Not on file documented as of this encounter Visit Diagnoses Not on filedocumented in this encounter Care Teams Computer Support Specialist Instructor Relationship Specialty Start Date End Date Tristin Ghotra MD [address] [place] [address] PCP - General 12/07/18 documented as of this encounter
--- OUTSIDE RECORDS SUMMARY | 2024-03-10 21:34 | XMS_ITS | Encounter Summary ---
Author Organization [facility] Address [address] [place] [address] Care Team Providers Care Journeyman Pipe Welder Name Role Phone Tristin Ghotra MD Primary Care Provider [phone] Reason for Visit * Reason Onset Date Comments Test Results 10/15/2021 Encounter Details Date Type Department Care Team (Late st Contact Info) Description 10/15/2021 Telephone [facility] Pulmonary at [address] [place] [address] Josefa Salvador LPN Test Results Social History Tobacco Use Types Packs/Day Years Used Date Smoking Tobacco: Never Alcohol Use Standard Drinks/Week Comments Yes 0 (1 standard drink = 0.6 oz pur e alcohol) Comments Unknown Sex and Gender Information Value Date Recorded Sex Assigned at Not on file Legal Sex Female 3:22 AM REGIONAL TELECOMMUNICATIONS SPECIALIST Gender Identity Female 06/27/2022 9:35 PM [...] on filedocumented in this encounter Care Teams Journeyman Pipe Welder Relationship Specialty Start Date End Date Tristin Ghotra MD [address] [facility] [address] [place] [address] PCP - General 12/07/18 documented as of this encounter
--- OUTSIDE RECORDS SUMMARY | 2024-03-10 21:34 | XMS_ITS | Encounter Summary ---
Author Organization [facility] Address [address] [place] [address] Care Team Providers Care Sheet Metal Installer Name Role Phone Tristin Ghotra MD Primary Care Provider [phone] Reason for Visit * Reason Comments Follow-up Encounter Details Date Type Department Care Team (Late st Contact Info) Description 03/01/2022 9:15 AM BUTTON RECLAIMER Office Visit [facility] Pulmonology [address] [facility] [address] [place] [address] Kate Carrasco MD [address] [facility] [address] [place], [place] [id number] Non-seasonal allergic rhinitis due to other allergic trigger (Primary Dx); Mild persistent asthma without complication Social History Tobacco Use Types Packs/Day Years Used Date Smoking Tobacco: Never Alcohol Use Standard Drinks/Week Comments Yes 0 (1 standard drink = 0.6 oz pur e alcohol) Comments Unknown Sex and Gender Information Value Date Recorded Sex Assigned at Not on file Legal Sex Female 3:22 AM BUTTON RECLAIMER Gender Identity Female 06/27/2022 9:35 PM CDT Sexual Orientation Not on file documented as of this encounter Last Filed Vital Signs Vital Sign Reading Time Taken Comments Blood Pressure 125/73 03/01/2022 9:09 AM BUTTON RECLAIMER Pulse 69 03/01/2022 9:09 AM BUTTON RECLAIMER Temperature - - Respiratory Rate 18 03/01/2022 9:09 AM BUTTON RECLAIMER Oxygen Saturation 97% 03/01/2022 9:09 AM BUTTON RECLAIMER Inhaled Oxygen Concentration - - Weight 72.5 kg (159 lb 12.8 oz) 03/01/2022 9:09 AM BUTTON RECLAIMER Height 175.3 cm (5' 9 ) 03/01/2022 9:09 AM BUTTON RECLAIMER Body Mass Index 23.6 03/01/2022 9:09 AM BUTTON RECLAIMER documented in this encounter Ordered Prescriptions Prescription [...] etoh. No drug use. 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 ON RECLAIMER documented in this encounter Plan of Treatment [...] DAY added in this encounter Care Teams Sheet Metal Installer Relationship Specialty Start Date End Date Tristin Ghotra MD [address] [facility] [address] [place] [address] PCP - General 12/07/18 documented as of this encounter
--- OUTSIDE RECORDS SUMMARY | 2024-03-10 21:34 | XMS_ITS | Referral Summary ---
Author Organization [facility] Address [address] [place] [address] Care Team Providers Care Reprographics Associate Name Role Phone Tristin Ghotra MD Primary Care Provider [phone] Encounters Date Type Department Care Team Description 03/06/2024 Orders Only [facility] Cardiology [address] [place] [address] Cristopher Lipscomb MD 12/19/2023 Telephone [facility] Specialty Services [address] [place] [address] Miscellaneous, Not In File from Last 3 [...] mcg/actuation aerosol inhaler Active inhalational spacing device ([facility]) spacer 1 Device daily [...] on file Legal Sex Female 3:22 AM CORPORATE STAFF ACCOUNTANT Gender Identity Female 06/27/2022 9:35 PM CDT [...] CARDIOLOGY DOCUMENT SCAN Routine 03/03/2024 8:40 AM CORPORATE STAFF ACCOUNTANT SCREENING MAMMOGRAM BILATERAL W NADIR 12/27/2018 2:46 PM CORPORATE STAFF ACCOUNTANT from Last 3 Months or Most Recently Relevant to Health Maintenance Results * Cardiology Document Scan (03/03/2024 8:40 AM CORPORATE STAFF ACCOUNTANT) Anatomical Region Laterality Modality Other us Cristopher Lipscomb MD CV CARDIAC SERVICES [facility] Final Result * Screening Mammogram Bilateral W Nadir (12/27/2018 2:46 PM CORPORATE STAFF ACCOUNTANT) Anatomical Region Laterality Modality Breast Bilateral Mammography 12/27/2018 3:37 PM CORPORATE STAFF ACCOUNTANT Narrative 12/28/2018 10:58 AM CORPORATE STAFF ACCOUNTANT Patient Name: RUDI MCKEON V ?Ordering Dr: Ahsan Street ?? D.O.B: 1975 ? Exam Date: 12/27/18 ?? 1446 ?? Age: 43 ?Sex: Female ? MR#: [id number] ?? Loc: ? RADIOLOGY REPORT ?? Order #[id number] ?? [facility] ? Breanna Bilat Screening 3D ? [...] age 41, based on guidelines of the [place] [employer] of ?? Radiology (ACR Practice Parameter for the Performance of Screening and ?? Diagnostic Mammography) and [place] [employer] of Obstetricians and ?? Gynecologists. For women with an elevated risk of breast cancer, please refer ?? to the ACR Practice Parameter for specific screening recommendations. ? The patient will be entered into a reminder system with a target due date of 1 ?? year for her next screening exam. ? Electronically signed by: ?Sai Marcum M.D. ? ab/penrad:12/28/2018 10:58:37 ? Rotary Dump Operator: Kisha Dinh)(Caro), [facility] ?? letter sent: Normal Exam ? Reading location: ?? BI-RADS: 2 Benign ? REPORT ELECTRONICALLY SIGNED IN OTHER VENDOR SYSTEM ?? Resulting Agency Comment O Procedure Note Sai Marcum MD - 12/28/2018 Patient Name: RUDI MCKEON Dr: Ahsan StreetO.B: 1975 Exam Date: 12/27/18 1446 Age: 43 Sex: Female MR#: [id number] Loc: RADIOLOGY REPORT Order #[id number] [facility] Breanna Bilat Screening 3D Signed - [...] age 41, based on guidelines of the [place] [employer] Rad[employer] (ACR Practice Parameter for the Performance of Screening and Diagnostic Mammography) and [place] [employer] of Obstetricians and Gynecologists. For women with an elevated risk of breast cancer, pleaserefer to the ACR Practice Parameter for specific screening recommendations. The patient will be entered into a reminder system with a target due dateof 1 year for her next screening exam. Electronically signed by: Sai Marcum M.D. ab/penrad:12/28/2018 10:58:37 Rotary Dump Operator: Kisha Dinh)(Caro), [facility] letter sent: Normal Exam Reading location: BI-RADS: 2 Benign REPORT ELECTRONICALLY SIGNED IN OTHER VENDOR SYSTEM Ahsan Street MD IMG MAMMO PROCEDURES Final R esult from Last 3 Months or Most Recently Relevant to Health Maintenance Insurance [employer] OPEN ACCESS Gengo OPEN ACCESS CIGNA OPEN ACCESS Care Teams Reprographics Associate Relationship Specialty Start Date End Date Tristin Ghotra MD [address] [place] [address] PCP - General 12/07/18
--- OUTSIDE RECORDS SUMMARY | 2024-03-10 21:34 | XMS_ITS | Encounter Summary ---
Author Organization [facility] Address [address] [facility] [address] [place] [address] Care Team Providers Care Gymnastics Coach Or Instructor Name Role Phone Tristin Ghotra MD Primary Care Provider [phone] Reason for Visit * Reason Comments Follow-up Encounter Details Date Type Department Care Team (Late st Contact Info) Description 06/28/2022 9:15 AM CDT Office Visit [facility] Pulmonology [address] [facility] [address] [place] [address] Kate Carrasco MD [address] [facility] [address] [place] [address] Severe persistent asthma without complication (Primary Dx); Chronic rhinitis Social History Tobacco Use Types Packs/Day Years Used Date Smoking Tobacco: Never Alcohol Use Standard Drinks/Week Comments Yes 0 (1 standard drink = 0.6 oz pur e alcohol) Comments Unknown Sex and Gender Information Value Date Recorded Sex Assigned at Not on file Legal Sex Female 3:22 AM POST 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 No drug use. 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
--- OUTSIDE RECORDS SUMMARY | 2024-03-10 21:34 | XMS_ITS | Encounter Summary ---
Author Organization [facility] Address [address] [address] [place] [address] Care Team Providers Care Multi Line Claims Adjuster Name Role Phone Tristin Ghotra MD Primary Care Provider [phone] Encounter Details Date Type Department Care Team (Late st Contact Info) Description 11/30/2021 1:30 PM CDT Office Visit [facility] Pulmonology [address] [facility] [address] [place] [address] Kate Carrasco MD [address] [facility] [address] [place] [address] Mild persistent asthma without complication (Primary Dx); Non-seasonal allergic rhinitis due to other allergic trigger Social History Tobacco Use Types Packs/Day Years Used Date Smoking Tobacco: Never Alcohol Use Standard Drinks/Week Comments Yes 0 (1 standard drink = 0.6 oz pur e alcohol) Comments Unknown Sex and Gender Information Value Date Recorded Sex Assigned at Not on file Legal Sex Female 3:22 AM NETWORK SUPPORT MANAGER Gender Identity Female 06/27/2022 9:35 PM [...] etoh. No drug use. 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
--- OUTSIDE RECORDS SUMMARY | 2024-03-10 21:34 | XMS_ITS | Encounter Summary ---
Author Organization [facility] Address [address] [facility] [address] [place] [address] Care Team Providers Care Building Services Engineer Name Role Phone Tristin Ghotra MD Primary Care Provider [phone] Reason for Visit * Reason Onset Date Comments Med Change Request 02/16/2022 Encounter Details Date Type Department Care Team (Late st Contact Info) Description 02/16/2022 Telephone [facility] Pulmonology [address] [facility] [address] [place] [address] Sola Mendiola MA Med Change Request Social History Tobacco Use Types Packs/Day Years Used Date Smoking Tobacco: Never Alcohol Use Standard Drinks/Week Comments Yes 0 (1 standard drink = 0.6 oz pur e alcohol) Comments Unknown Sex and Gender Information Value Date Recorded Sex Assigned at Not on file Legal Sex Female 3:22 AM ZIGZAG ELASTIC ATTACHER Gender Identity Female 06/27/2022 9:35 PM CDT [...] Sola Mendiola MA - 02/16/2022 4:33 PM ZIGZAG ELASTIC ATTACHER Patient informed, sent Advair to pharmacy. AG ELASTIC ATTACHER * Telephone Encounter - Kate Carrasco MD - 02/16/2022 3:28 PM CST Can try Advair HFA 110mcg dose or Dulera 100mcg AG ELASTIC ATTACHER * Telephone Encounter - Sola Mendiola MA - 02/16/2022 3:11 PM ZIGZAG ELASTIC ATTACHER Patient called in stating that her insurance does not covered Symbicort any more and she is needinga new prescription, please advise. AG ELASTIC ATTACHER documented in this encounter Plan of Treatment [...] documented as of this encounter Care Teams Building Services Engineer Relationship Specialty Start Date End Date Tristin Ghotra MD [address] [facility] 100 [place] [address] PCP - General 12/07/18 documented as of this encounter
--- OUTSIDE RECORDS SUMMARY | 2024-03-10 21:34 | XMS_ITS | Encounter Summary ---
Author Organization [facility] Address [address] [facility] [address] [facility] [address] [place] [address] Care Team Providers Care Cut Out Stitcher Name Role Phone Tristin Ghotra MD Primary Care Provider [phone] Encounter Details Date Type Department Care Team (Late st Contact Info) Description 01/03/2022 Telephone [facility] Pulmonology [address] [facility] [place] [facility] [address] [place] [address] Kate Carrasco MD [address] [place] [address] [address] [place] [address] Social History Tobacco Use Types Packs/Day Years Used Date Smoking Tobacco: Never Alcohol Use Standard Drinks/Week Comments Yes 0 (1 standard drink = 0.6 oz pur e alcohol) Comments Unknown Sex and Gender Information Value Date Recorded Sex Assigned at Not on file Legal Sex Female 3:22 AM HAT LINING PASTER Gender Identity Female 06/27/2022 9:35 PM CDT [...] on: 01/07/2022 12:51 PM Modules accepted: Orders LINING PASTER * Telephone Encounter - Mitra Marcial RN - 01/03/2022 4:23 PM HAT LINING PASTER Medication verified and sent to pharmacy Last Visit: 11/30/2021 Follow Up: 03/01/2022 LINING PASTER * Telephone Encounter - Uma Mckeon - 01/03/2022 3:18 PM CST Pt called asking for a 90 day prescription for Symbicort be sent to [facility] in [place]. LINING PASTER documented in this encounter Plan of Treatment [...] documented as of this encounter Care Teams Cut Out Stitcher Relationship Specialty Start Date End Date Tristin Ghotra MD [address] [facility] 100 [place] [address] PCP - General 12/07/18 documented as of this encounter
--- OUTSIDE RECORDS SUMMARY | 2024-03-10 21:34 | XMS_ITS | Encounter Summary ---
Author Organization [facility] Address [address] [facility] [address] [place] [address] Care Team Providers Care Garnisher Name Role Phone Tristin Ghotra MD Primary Care Provider [phone] Reason for Visit * Reason Onset Date Comments Request For Order(s) 10/14/2021 Encounter Details Date Type Department Care Team (Late st Contact Info) Description 10/14/2021 Telephone [facility] Pulmonology [address] [facility] [address] [place] [address] [place] [address] [place] [address] [address] [place] [address] Request For Order(s) Social History Tobacco Use Types Packs/Day Years Used Date Smoking Tobacco: Never Alcohol Use Standard Drinks/Week Comments Yes 0 (1 standard drink = 0.6 oz pur e alcohol) Comments Unknown Sex and Gender Information Value Date Recorded Sex Assigned at Not on file Legal Sex Female 3:22 AM LEAD ARCHITECT Gender Identity Female 06/27/2022 9:35 PM CDT Sexual Orientation Not on file documented as of this encounter Ordered Prescriptions Prescription Sig Dispense Quantity Refills Last Filled Start Date End Date inhalational spacing device (OptiChamber Tasha [facility]) spacer 1 Device daily 1 each 10/14/2021 documented in this encounter Miscellaneous Notes * Telephone Encounter - Sola Mendiola MA - 10/14/2021 2:18 PM CDT Sent prescription for a spacer to [facility]. * Telephone Encounter - Inga Camacho - 10/14/2021 1:18 PM CDT Patient went to get her inhaler and they told her that she will need a spacer for this but they also need an order for the spacer. stated it should be sent to [facility] in [place]. documented in this encounter Plan of Treatment Not on file documented as of this encounter Visit Diagnoses Not on filedocumented in this encounter Care Teams Garnisher Relationship Specialty Start Date End Date Tristin Ghotra MD [address] [facility] [address] [place] [address] PCP - General 12/07/18 documented as of this encounter
--- OUTSIDE RECORDS SUMMARY | 2024-03-10 21:34 | XMS_ITS | Encounter Summary ---
Author Organization [facility] Healthcare Address [address] [place] [address] Care Team Providers Care Mental Hygiene Consultant Name Role Phone Tristin Ghotra MD Primary Care Provider [phone] Reason for Referral * (Routine) - Closed Specialty Diagnoses / Procedures Referred By George cr Referred To Contact Diagnoses Chronic rhinitis Mild persistent asthma without complication Dyspnea and respiratory abnormalities Procedures Pulmonary Function Test -[facility]; Full PFT in PFT Lab w/Stress Ox/6 Min Walk Test Kate Carrasco MD [address] [place] [address] Phone: tel: fax: Referral ID Status Reason Start Date Expiration Date Visits Re quested Visits Authorized [id number] Closed 10/13/2021 11/12/2022 1 1 Reason for Visit * (Routine) - Closed Specialty Diagnoses / Procedures Referred By George cr Referred To Contact Diagnoses Chronic rhinitis Mild persistent asthma without complication Dyspnea and respiratory abnormalities Procedures Pulmonary Function Test -[facility]; Full PFT in PFT Lab w/Stress Ox/6 Min Walk Test Kate Carrasco MD [address] [place] [address] Phone: tel: fax: Referral ID Status Reason Start Date Expiration Date Visits Re quested Visits Authorized [id number] Closed 10/13/2021 11/12/2022 1 1 Encounter Details Date Type Department Care Team (Latest Contact Info) Description 10/15/2021 1:56 PM CDT - 10/15/2021 11:59 PM CDT Hospital Encounter [facility] Respiratory Therapy [address] [place] [phone] Chronic rhinitis; Mild persistent asthma without complication; [...] on file Legal Sex Female 3:22 AM RAIL DIRECTOR Gender Identity Female 06/27/2022 9:35 PM [...] 0 09/27/2013 inhalational spacing device (Antonia Cordova [employer]) spacer 1 Device daily 1 each 10/14/2021 [...] Test - (10/15/2021 3:10 PM CDT) Pathologist [facility] FVC POST 3.04 2.79 - 4.47 L 10/15/2021 2:59 PM CDT [facility] FVC PRE 2.71(L) 2.79 - 4.47 L 10/15/2021 2:59 PM CDT [facility] FEV1 POST 2.11(L) 2.22 - 3.57 L 10/15/2021 2:59 PM CDT [facility] FEV1 PRE 1.53(L) 2.22 - 3.57 L 10/15/2021 2:59 PM CDT [facility] [id number] 69.23(L) 70.39 - 89.85 % 10/15/2021 2:59 PM CDT [facility] [id number] 56.53(L) 70.39 - 89.85 % 10/15/2021 2:59 PM CDT [facility] JEJ61-30% POST 1.35(L) 1.47 - 4.71 L/s 10/15/2021 2:59 PM CDT [facility] ADA57-56% PRE 0.55(L) 1.47 - 4.71 L/s 10/15/2021 2:59 PM CDT [facility] PEF POST 4.18(L) 5.70 - 8.66 L/s 10/15/2021 2:59 PM CDT [facility] PEF PRE 3.63(L) 5.70 - 8.66 L/s 10/15/2021 2:59 PM CDT [facility] FET 100% POST 9.26 sec 10/15/2021 2:59 PM CDT [facility] FET 100% PRE 14.84 sec 10/15/2021 2:59 PM CDT [facility] FIVC POST 2.91(L) 3.12 - 4.50 L 10/15/2021 2:59 PM CDT [facility] FIVC PRE 2.47(L) 3.12 - 4.50 L 10/15/2021 2:59 PM CDT [facility] FIF50% POST 3.62 L/s 10/15/2021 2:59 PM CDT [facility] FIF50% PRE 3.03 L/s 10/15/2021 2:59 PM CDT [facility] DLCOc SB 23.85 22.31 - 33.78 ml/(min*mm Hg) 10/15/2021 2:59 PM CDT [facility] VA 4.42(L) 5.63 - 5.63 L 10/15/2021 2:59 PM CDT [facility] DLCO/VA PRE 5.40 3.56 - 6.15 ml/(min*mm Hg*L) 10/15/2021 2:59 PM CDT [facility] IC SB 1.85(L) 2.73 - 2.73 L 10/15/2021 2:59 PM CDT [facility] VC PRE 3.02(L) 3.12 - 4.50 L 10/15/2021 2:59 PM CDT [facility] TLC PRE 4.20(L) 4.79 - 6.76 L 10/15/2021 2:59 PM CDT [facility] RV PRE 1.18(L) 1.32 - 2.47 L 10/15/2021 2:59 PM CDT [facility] FRC PL PRE 2.79 2.15 - 3.79 L 10/15/2021 2:59 PM CDT [facility] ERV PRE 1.60(H) 1.08 - 1.08 L 10/15/2021 2:59 PM CDT [facility] IC PRE 1.41(L) 2.73 - 2.73 L 10/15/2021 2:59 PM CDT [facility] RAW PRE 2.25(L) 3.06 - 3.06 cmH2O*s/L 10/15/2021 2:59 PM CDT [facility] BF RES 16.17 BPM 10/15/2021 2:59 PM T [facility] Anatomical Region Laterality Modality PFT [...] abnormalities documented in this encounter Care Teams Mental Hygiene Consultant Relationship Specialty Start Date End Date Tristin Ghotra MD [address] [address] PCP - General 12/07/18 documented as of this encounter
--- OUTSIDE RECORDS SUMMARY | 2024-03-10 21:35 | XMS_ITS | Encounter Summary ---
Author Organization [facility] Healthcare Address [address] [place] [address] Care Team Providers Care Newspaper Delivery Driver Name Role Phone Tristin Ghotra MD Primary Care Provider [phone] Encounter Details Date Type Department Care Team (Latest Contact Info) Description 12/01/2017 7:18 AM CDT Hospital Encounter [facility] OP Tristin Ghotra MD [address] [place] [address] Abnormal levels of other serum enzymes Social History Tobacco Use Types Packs/Day Years Used Date Smoking Tobacco: Never Alcohol Use Standard Drinks/Week Comments Yes 0 (1 standard drink = 0.6 oz pur e alcohol) Comments Unknown Sex and Gender Information Value Date Recorded Sex Assigned at Not on file Legal Sex Female 3:22 AM VICE PRESIDENT TALENT MANAGEMENT Gender Identity Female 06/27/2022 9:35 PM CDT [...] D: ??12/01/2017 2:12 PM T: Report ID: [id number] Reading Location: ??[id number] [EOD] Narrative 12/01/2017 2:15 PM CDT EXAM [...] by Isaac Jane D.O. T: Report ID: [id number] Reading Location: [place] [address] [EOD] us Tristin Ghotra MD IM US PROCEDURES Final Result documented in this encounter Visit Diagnoses Diagnosis Abnormal levels of other serum enzymes documented in this encounter Care Teams Newspaper Delivery Driver Relationship Specialty Start Date End Date Tristin Ghotra MD [address] [facility] [address] [place] [address] PCP - General 10/11/13 12/06/18 documented as of this encounter
--- OUTSIDE RECORDS SUMMARY | 2024-03-10 21:35 | XMS_ITS | Encounter Summary ---
Author Organization [facility] Address [address] [place] [address] Phone Care Team Providers Care Cullet Crusher And Washer Name Role Phone Tristin Ghotra MD Primary Care Provider [phone] Reason for Referral * Consultation (Routine) - Closed Specialty Diagnoses / Procedures Referred By George cr Referred To Contact Otolaryngology Diagnoses Enlarged tonsils Tristin Ghotra MD [address] [place] [address] Phone: tel: fax: [facility] (All Locations) Referral ID Status Reason Start Date Expiration Date V isits Requested Visits Authorized [id number] Closed Specialty Services Required 08/27/2020 09/26/2021 99 99 Question Answer Please select the performing region: [facility] (All Locations) [[id number]] # of visits: 1 Reason for Visit * Reason Comments Enlarged Tonsils * Consultation (Routine) - Closed Specialty Diagnoses / Procedures Referred By George cr Referred To Contact Otolaryngology Diagnoses Enlarged tonsils Tristin Ghotra MD [address] [place] [address] Phone: tel: fax: [facility] (All Locations) Referral ID Status Reason Start Date Expiration Date V isits Requested Visits Authorized [id number] Closed Specialty Services Required 08/27/2020 09/26/2021 99 99 Encounter Details Date Type Department Care Team (Late st Contact Info) Description 09/03/2020 3:30 PM CDT Office Visit [facility] Otolaryngology [address] [place] [address] Salinas Pandya II, MD [address] [place] [address] Enlarged tonsils (Primary Dx); Lymphadenopathy of left cervical region Social History Tobacco Use Types Packs/Day Years Used Date Smoking Tobacco: Never Alcohol Use Standard Drinks/Week Comments Yes 0 (1 standard drink = 0.6 oz pur e alcohol) Comments Unknown Sex and Gender Information Value Date Recorded Sex Assigned at Not on file Legal Sex Female 3:22 AM BORDER PATROL AGENT Gender Identity Female 06/27/2022 9:35 PM CDT [...] Gatherings with Friends and Family: ??? Attends Buddhist Services: ??? Active Member of Clubs or [...] is clear saliva flow from Stensen's and [place]'s ducts bilaterally. LYMPHATIC: No cervical lymphadenopathy except [...] Referral Reason: Specialty Services Required Referral Location: [facility] (All Locations) Requested Specialty: Otolaryngology Number [...] her CT scan images. This is from [facility] and I do not see any mass [...] documented as of this encounter Care Teams Cullet Crusher And Washer Relationship Specialty Start Date End Date Tristin Ghotra MD [address] [place] [address] PCP - General 12/07/18 documented as of this encounter
--- OUTSIDE RECORDS SUMMARY | 2024-03-10 21:35 | XMS_ITS | Encounter Summary ---
Author Organization [facility] Healthcare Address [address] [place] [address] Care Team Providers Care Glass Setter Name Role Phone Tristin Ghotra MD Primary Care Provider [phone] Encounter Details Date Type Department Care Team (Late st Contact Info) Description 12/27/2018 2:45 PM TUNNEL MUCKER Hospital Encounter [facility] [address] MD [address] [facility] [address] [place] [address] Social History Tobacco Use Types Packs/Day Years Used Date Smoking Tobacco: Never Alcohol Use Standard Drinks/Week Comments Yes 0 (1 standard drink = 0.6 oz pur e alcohol) Comments Unknown Sex and Gender Information Value Date Recorded Sex Assigned at Not on file Legal Sex Female 3:22 AM TUNNEL MUCKER Gender Identity Female 06/27/2022 9:35 PM CDT [...] Comments GENERAL RADIOLOGY REPORT 12/28/2018 12:00 AM TUNNEL MUCKER SCREENING MAMMOGRAM BILATERAL W NADIR 12/27/2018 2:46 PM TUNNEL MUCKER documented in this encounter Results * GENERAL RADIOLOGY REPORT (12/28/2018 12:00 AM TUNNEL MUCKER) Anatomical Region Laterality Modality Radiographic Nikkie ging Narrative 12/28/2018 12:00 AM TUNNEL MUCKER Ordered by an unspecified provider. us Historical Provider MD ALLEN XR PROCEDURES Final R esult * Screening Mammogram Bilateral W Nadir (12/27/2018 2:46 PM TUNNEL MUCKER) Anatomical Region Laterality Modality Breast Bilateral Mammography 12/27/2018 3:37 PM TUNNEL MUCKER Narrative 12/28/2018 10:58 AM TUNNEL MUCKER Patient Name: RUDI MCKEON V ?Ordering Dr: [address]hsan [address] ?? D.O.B: 1975 ? Exam Date: 12/27/18 ?? 1446 ?? Age: 43 ?Sex: Female ? MR#: [id number] ?? Loc: ? RADIOLOGY REPORT ?? Order #[id number] ?? [facility] ? [facility]anna Bilat [...] age 41, based on guidelines of the [place] [employer] ?? [employer] (ACR Practice Parameter for the Performance of Screening and ?? Diagnostic Mammography) and [place] [employer] of Obstetricians and ?? Gynecologists. For women with an elevated risk of breast cancer, please refer ?? to the ACR Practice Parameter for specific screening recommendations. ? The patient will be entered into a reminder system with a target due date of 1 ?? year for her next screening exam. ? Electronically signed by: ?Sai Marcum M.D. ? ab/penrad:12/28/2018 10:58:37 ? Train Operator: Kisha DICKERSON (Vidhi)(Caro), [facility] ?? letter sent: Normal Exam ? Reading location: ?? BI-RADS: 2 Benign ? REPORT ELECTRONICALLY SIGNED IN OTHER VENDOR SYSTEM ?? Resulting Agency Comment O Procedure Note Sai Marcum MD - 12/28/2018 Patient Name: MELINDARUDI Dr: Ahsan Street D.O.B: 1975 Exam Date: 12/27/18 1446 Age: 43 Sex: Female MR#: [id number] Loc: RADIOLOGY REPORT Order #[id number] [facility] Breanna Bilat Screening 3D Signed - MG [...] age 41, based on guidelines of the [place] [employer] (ACR Practice Parameter for the Performance of Screening and Diagnostic Mammography) and [place] [employer] and Gynecologists. For women with an elevated risk of breast cancer, pleaserefer to the ACR Practice Parameter for specific screening recommendations. The patient will be entered into a reminder system with a target due dateof 1 year for her next screening exam. Electronically signed by: Sai lyons/trish:12/28/2018 10:58:37 Train Operator: Kisha Dinh)(Caro), [facility] letter sent: Normal Exam Reading location: BI-RADS: 2 Benign REPORT ELECTRONICALLY SIGNED IN OTHER VENDOR SYSTEM us Ahsan Street MD IMG MAMMO PROCEDURES Final R esult documented in this encounter Visit Diagnoses Not on filedocumented in this encounter Care Teams Glass Setter Relationship Specialty Start Date End Date Tristin Ghotra MD [address] [facility] [address] [place] [address] PCP - General 12/07/18 documented as of this encounter
--- OUTSIDE RECORDS SUMMARY | 2024-03-10 21:35 | XMS_ITS | Encounter Summary ---
Author Organization [facility] Address [address] [place] [address] Phone Care Team Providers Care Chemical Waste Management Technician Name Role Phone Tristin Ghotra MD Primary Care Provider [phone] Reason for Visit * Reason Onset Date Comments Test Results 09/14/2020 Encounter Details Date Type Department Care Team (Late st Contact Info) Description 09/14/2020 Telephone [facility] Otolaryngology [address] [place] [phone] Jaclyn Briones Test Results Social History Tobacco Use Types Packs/Day Years Used Date Smoking Tobacco: Never Alcohol Use Standard Drinks/Week Comments Yes 0 (1 standard drink = 0.6 oz pur e alcohol) Comments Unknown Sex and Gender Information Value Date Recorded Sex Assigned at Not on file Legal Sex Female 3:22 AM FORMULATION CHEMIST Gender Identity Female 06/27/2022 9:35 PM CDT [...] on filedocumented in this encounter Care Teams Chemical Waste Management Technician Relationship Specialty Start Date End Date Tristin Ghotra MD [address] [address] PCP - General 12/07/18 documented as of this encounter
--- OUTSIDE RECORDS SUMMARY | 2024-03-10 21:35 | XMS_ITS | Encounter Summary ---
Author Organization [facility] Healthcare Address [address] [place] [address] Care Team Providers Care Manager Medicare Marketing Name Role Phone Tristin Ghotra MD Primary Care Provider [phone] Encounter Details Date Type Department Care Team (Late st Contact Info) Description 10/13/2021 5:30 PM CDT Lab [address] [address] Chronic rhinitis Social History Tobacco Use Types Packs/Day Years Used Date Smoking Tobacco: Never Alcohol Use Standard Drinks/Week Comments Yes 0 (1 standard drink = 0.6 oz pur e alcohol) Comments Unknown Sex and Gender Information Value Date Recorded Sex Assigned at Not on file 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 Testing performed by: [facility], [facility], [place]., [address] Blood 10/13/2021 2:13 PM CDT 10/14/2021 1:10 PM CDT us Kate Carrasco MD LAB [place]LOOD [place] [address] [address] Department [place] [address] * Allergen evaluation (10/13/2021 2:13 PM CDT) RAST, allergen name See Interpretive data. FRED LO Comment: Interpretive data Rast Class ?Result range (KUnits/L) ?1+ ?0.35 ?- ?? 0.69 ?2+ ?0.70 ?- ?? 3.49 ?3+ ?3.50 ?- ??17.49 ?4+ ? 17.50 ?- ??49.99 ?5+ ? 50.00 ?- 100.00 ?6+ ? >100.00 Current interpretive data was last revised on 09. Testing performed by: [facility], [facility], [place]., [address] Blood 10/13/2021 2:13 PM CDT 10/14/2021 1:10 PM CDT us Kate Carrasco MD LAB BLOOD ORDERABLES Final Re sult [facility] [address] [address] Department [place] [address] * Differential, auto (10/13/2021 2:13 PM CDT) Neutrophil abs 3.6 1.7 - 6.5 K/cumm [facility] Imm gran abs 0.0 0.0 - 0.1 K/cumm [facility] Lymphocyte abs 1.6 0.8 - 3.3 K/cumm [facility] Monocyte abs 0.4 0.2 - 0.8 K/cumm [facility] Eosinophil abs 0.1 0.0 - 0.5 K/cumm [facility] Basophil abs 0.0 0.0 - 0.1 K/cumm [facility] Neutrophil pct 63.0 % [facility] Comment: Interpretive Data Percent cell count reference ranges are not reported, since discordance with absolute values may lead to misinterpretation of CBC data. Current Interpretive Data was last revised on 2017. Imm gran pct 0.3 % [facility] Comment: Interpretive Data Percent cell count reference [...] MD LAB BLOOD ORDERABLES Final Re sult [facility] [address] [address] Department [place] [address] * (ABNORMAL) CBC with auto differential (10/13/2021 2:13 PM CDT) WBC 5.7 3.8 - 9.9 K/cumm [facility] Hgb 14.0 11.9 - 15.5 g/dL [facility] Hct 41.7 35.6 - 45.5 % [facility] Plt 260 150 - 400 K/cumm [facility] MPV 11.2 9.1 - 12.3 fL [facility] RBC 4.30 3.90 - 5.20 M/cumm [facility] MCV 97.0(H) 81.3 - 96.4 fL [facility] MCH 32.6 27.1 - 33.3 pg [facility] MCHC 33.6 32.3 - 35.7 g/dL [facility] RDW CV 12.9 11.1 - 14.9 % [facility] RDW SD 46.1 35.7 - 48.1 fL [facility] NRBC abs 0.00 0.00 - 0.01 K/cumm [facility] Blood 10/13/2021 2:13 PM CDT 10/13/2021 5:33 PM CDT Kate Carrasco MD LAB BLOOD ORDERABLES Final Re sult Performing Organization Address [facility]/[place] [address] [address] [place] [address] * (ABNORMAL) IgE (10/13/2021 2:13 PM CDT) IgE 387.0(H) 1.0 - 100.0 IUnits/mL [facility] Comment:Testing performed by : [facility], [address] [place] [address]., [address] Blood 10/13/2021 2:13 PM CDT 10/14/2021 1:01 PM CDT Kate Carrasco MD LAB BLOOD ORDERABLES Final Re sult Performing Organization Address [facility] [place] [address] [address] [place] [address] * (ABNORMAL) Alleren Rat urine proteins (animal) IgE (10/13/2021 2:13 PM CDT) Pathologist [facility] Rat urine proteins IgE 1.79(H) 0.00 - 0.34 kUnits/L [facility] Comment:Testing performed by : [facility], [facility], [place]., [address] Blood 10/13/2021 2:13 PM CDT 10/14/2021 1:11 PM CDT Kate Carrasco MD LAB BLOOD ORDERABLES Final Re sult Performing Organization Address City/[facility] [place] [address] [address] [facility] [place] [address] * (ABNORMAL) Allergen Mouse urine proteins (animal) IgE (10/13/2021 2:13 PM CDT) Mouse urine proteins IgE 1.22(H) 0.00 - 0.34 kUnits/L [facility] Comment:Testing performed by : [facility], [place]., [address] Blood 10/13/2021 2:13 PM CDT 10/14/2021 1:11 PM CDT Kate Carrasco MD LAB BLOOD ORDERABLES Final Re sult Performing Organization Address [facility] Co de Phone Number [facility] [address] [address] [place] [address] * (ABNORMAL) Allergen Dog dander (animal) IgE (10/13/2021 2:13 PM CDT) Dog dander IgE 7.20(H) 0.00 - 0.34 kUnits/L [facility] Comment:Testing performed by : [facility], [place]., [address] Blood 10/13/2021 2:13 PM CDT 10/14/2021 1:11 PM CDT Kate Carrasco MD LAB BLOOD ORDERABLES Final Re sult Performing Organization Address [facility] de Phone Number [facility] [address] [address] [facility] [place] [address] * Allergen Dermatophagoides pteronyssinus (insect) IgE (10/13/2021 2:13 PM CDT) Dermatophyton pteronyssinus IgE 0.12 0.00 - 0.34 kUnits/L [facility] Comment:Testing performed by : [facility], [place]., [address] Blood 10/13/2021 2:13 PM CDT 10/14/2021 1:11 PM CDT Kate Carrasco MD LAB BLOOD ORDERABLES Final Re sult Performing Organization Address [facility]/State/[facility] Co de Phone Number [facility] [address] [address] [facility] [place] [address] * Allergen Dermatophagoides farniae (insect) IgE (10/13/2021 2:13 PM CDT) Dermatophyton farinae IgE 0.11 0.00 - 0.34 kUnits/L [facility] Comment:Testing performed by : [facility], [place]., [address] Blood 10/13/2021 2:13 PM CDT 10/14/2021 1:11 PM CDT Kate Carrasco MD LAB BLOOD ORDERABLES Final Re sult Performing Organization Address [facility] Co de Phone Number [facility] [address] [address] [facility] [place] [address] * Allergen Cockroach cypriot (insect) IgE (10/13/2021 2:13 PM CDT) Cockroach IgE <0.10 0.00 - 0.34 kUnits/L [facility] Comment:Testing performed by : [facility], [place]., [address] Blood 10/13/2021 2:13 PM CDT 10/14/2021 1:11 PM CDT Kate Carrasco MD LAB BLOOD ORDERABLES Final Re sult Performing Organization Address [facility] Co de Phone Number [facility] [address] [address] [place] [address] * (ABNORMAL) Allergen Cat dander standard (animal) IgE (10/13/2021 2:13 PM CDT) Cat dander IgE >100.00(H) 0.00 - 0.34 kUnits/L [facility]ED Comment:Testing performed by : [facility], [place]., [address] Blood 10/13/2021 2:13 PM CDT 10/14/2021 1:11 PM CDT Kate Carrasco MD LAB BLOOD ORDERABLES Final Re sult Performing Organization Address [facility] Co de Phone Number [facility] [address] [address] [facility] [place] [address] * (ABNORMAL) Allergen Penicillium chrysogenum (mold) IgE (10/13/2021 2:13 PM CDT) Penicillium chrysogenum IgE 0.40(H) 0.00 - 0.34 kUnits/L [facility] Comment:Testing performed by : [place]., [address] Blood 10/13/2021 2:13 PM CDT 10/14/2021 1:11 PM CDT Kate Carrasco MD LAB BLOOD ORDERABLES Final Re sult Performing Organization Address [facility] Co de Phone Number [facility] [address] [address] [facility] [place] [address] * (ABNORMAL) Allergen Cladosporium herbarum (mold) IgE (10/13/2021 2:13 PM CDT) Cladosporium herbarum IgE 0.38(H) 0.00 - 0.34 kUnits/L [facility] Comment:Testing performed by : [place]., [address] Blood 10/13/2021 2:13 PM CDT 10/14/2021 1:11 PM CDT Kate Carrasco MD LAB BLOOD ORDERABLES Final Re sult Performing Organization Address [facility] Co de Phone Number [facility] [address] [address] [facility] [place] [address] * (ABNORMAL) Allergen Aspergillus fumigatus (mold) IgE (10/13/2021 2:13 PM CDT) Aspergillus fumigatus IgE 0.48(H) 0.00 - 0.34 kUnits/L FRED Comment:Testing performed by : [facility], [place]., [address] Blood 10/13/2021 2:13 PM CDT 10/14/2021 1:11 PM CDT Kate Carrasco MD LAB BLOOD ORDERABLES Final Re sult Performing Organization Address [facility] Co de Phone Number [facility] [address] [address] [facility] [place] [address] * (ABNORMAL) Allergen Alternaria tenuis (mold) IgE (10/13/2021 2:13 PM CDT) Alternaria tenius IgE 2.64(H) 0.00 - 0.34 kUnits/L [facility]ED Comment:Testing performed by : [facility], [place]., [address] Blood 10/13/2021 2:13 PM CDT 10/14/2021 1:11 PM CDT Kate Carrasco MD LAB BLOOD ORDERABLES Final Re sult Performing Organization Address [facility] Co de Phone Number [facility] [address] [address] [facility] [place] [address] * (ABNORMAL) Allergen Ragweed short/common (weed) IgE (10/13/2021 2:13 PM CDT) Ragweed common IgE 0.42(H) 0.00 - 0.34 kUnits/L [facility] Comment:Testing performed by : [facility], [place]., [address] Blood 10/13/2021 2:13 PM CDT 10/14/2021 1:11 PM CDT Kate Carrasco MD LAB BLOOD ORDERABLES Final Re sult Performing Organization Address [facility] Co de Phone Number [facility] [address] [address] [facility] [place] [address] * Allergen Pigweed, rough (weed) IgE (10/13/2021 2:13 PM CDT) Pigweed rough IgE <0.10 0.00 - 0.34 kUnits/L [facility] Comment:Testing performed by : [facility], [place]., [address] Blood 10/13/2021 2:13 PM CDT 10/14/2021 1:11 PM CDT Kate Carrasco MD LAB BLOOD ORDERABLES Final Re sult Performing Organization Address [facility] Co de Phone Number [facility] [address] [address] [facility] [place] [address] * Allergen Rico's quarter (weed) IgE (10/13/2021 2:13 PM CDT) Pathologist [facility] Rico's quarters IgE <0.10 0.00 - 0.34 kUnits/L [facility] Comment:Testing performed by : [facility], [place]., [address] Blood 10/13/2021 2:13 PM CDT 10/14/2021 1:11 PM CDT Kate Carrasco MD LAB BLOOD ORDERABLES Final Re sult Performing Organization Address City/[facility]/ZIP Co de Phone Number [facility] [address] [address] [facility] [place] [address] * Allergen Plantain iraqi (weed) IgE (10/13/2021 2:13 PM CDT) Pathologist [facility] Plantain iraqi IgE <0.10 0.00 - 0.34 kUnits/L [facility] Comment:Testing performed by : [facility], [place]., [address] Blood 10/13/2021 2:13 PM CDT 10/14/2021 1:11 PM CDT Kate Carrasco MD LAB BLOOD ORDERABLES Final Re sult Performing Organization Address [facility] Co de Phone Number FRED [address] [address] [place] [address] * Allergen Suhail grass (grass) IgE (10/13/2021 2:13 PM CDT) Suhail grass IgE <0.10 0.00 - 0.34 kUnits/L [facility]ED Comment:Testing performed by : [facility], [place]., [address] Blood 10/13/2021 2:13 PM CDT 10/14/2021 1:11 PM CDT Result [facility] Kate Carrasco MD LAB BLOOD ORDERABLES Final Re sult Performing Organization Address [facility] de Phone Number FRED [address] [address] [facility] [place] [address] * Allergen Hunter grass (grass) IgE (10/13/2021 2:13 PM CDT) Hunter grass IgE <0.10 0.00 - 0.34 kUnits/L [facility] Comment:Testing performed by : [facility], [place]., [address] Blood 10/13/2021 2:13 PM CDT 10/14/2021 1:11 PM CDT Result [facility] Kate Carrasco MD LAB BLOOD ORDERABLES Final Re sult Performing Organization Address [facility] Co de Phone Number FRED [address] [address] [address] * Allergen Bermuda grass (grass) IgE (10/13/2021 2:13 PM CDT) Bermuda grass IgE <0.10 0.00 - 0.34 kUnits/L [facility] Comment:Testing performed by : [facility], [place]., [address] Blood 10/13/2021 2:13 PM CDT 10/14/2021 1:11 PM CDT Kate Carrasco MD LAB BLOOD ORDERABLES Final Re sult Performing Organization Address City/[facility] Co de Phone Number [facility] [address] [address] [place] [address] * (ABNORMAL) Allergen [place] (tree) IgE (10/13/2021 2:13 PM CDT) [place] (tree) IgE 0.75(H) 0.00 - 0.34 kUnits/L [facility] Comment:Testing performed by : [facility], [place]., [address] Blood 10/13/2021 2:13 PM CDT 10/14/2021 1:11 PM CDT Kate Carrasco MD LAB BLOOD ORDERABLES Final Re sult Performing Organization Address City/[facility] Co de Phone Number [facility] [address] [address] [place] [address] * Allergen [place] cypriot (tree) IgE (10/13/2021 2:13 PM CDT) [place] IgE 0.12 0.00 - 0.34 kUnits/L [facility] Comment:Testing performed by : [facility], [place]., [address] Blood 10/13/2021 2:13 PM CDT 10/14/2021 1:11 PM CDT Kate Carrasco MD LAB BLOOD ORDERABLES Final Re sult Performing Organization Address [facility] [place] [address] [address] [address] * Allergen Snook red (tree) IgE (10/13/2021 2:13 PM CDT) Snook IgE <0.10 0.00 - 0.34 kUnits/L [facility] Comment:Testing performed by : [facility], [place]., [address] Blood 10/13/2021 2:13 PM CDT 10/14/2021 1:11 PM CDT Kate Carrasco MD LAB BLOOD ORDERABLES Final Re sult Performing Organization Address [facility] Co de Phone Number [facility] [address] [address] [place] [address] * Allergen Kihei (tree) IgE (10/13/2021 2:13 PM CDT) Kihei IgE <0.10 0.00 - 0.34 kUnits/L [facility] Comment:Testing performed by : [facility], [place]., [address] Blood 10/13/2021 2:13 PM CDT 10/14/2021 1:11 PM CDT Kate Carrasco MD LAB BLOOD ORDERABLES Final Re sult [facility] [address] [address] [address] * Allergen Mountain juniper (tree) IgE (10/13/2021 2:13 PM CDT) Mountain juniper IgE 0.15 0.00 - 0.34 kUnits/L [facility] Comment:Testing performed by : [place] [address] Blood 10/13/2021 2:13 PM CDT 10/14/2021 1:11 PM CDT Kate Carrasco MD LAB BLOOD ORDERABLES Final Re sult Performing Organization Address [facility]/[place] [address] [address] [facility] [place] [address] * Allergen Maple/Box elder (tree) IgE (10/13/2021 2:13 PM CDT) Maple/box elder IgE <0.10 0.00 - 0.34 kUnits/L [facility] Comment:Testing performed by : [facility], [place]., [address] Blood 10/13/2021 2:13 PM CDT 10/14/2021 1:11 PM CDT Result [facility] Kate Carrasco MD LAB BLOOD ORDERABLES Final Re sult Performing Organization Address [facility] Co de Phone Number FRED [address] [place] [address] * Allergen Elm (tree) IgE (10/13/2021 2:13 PM CDT) Elm IgE 0.10 0.00 - 0.34 kUnits/L [facility]ED Comment:Testing performed by : [facility], [place]., [address] Blood 10/13/2021 2:13 PM CDT 10/14/2021 1:11 PM CDT Result [facility] Kate Carrasco MD LAB BLOOD ORDERABLES Final Re sult FRED [address] [address] [facility] [place] [address] * Allergen Birch common silver (tree) IgE (10/13/2021 2:13 PM CDT) Birch common silver IgE <0.10 0.00 - 0.34 kUnits/L FRED LO Comment:Testing performed by : [facility], [facility], [place]., [address] Blood 10/13/2021 2:13 PM CDT 10/14/2021 1:11 PM CDT us Kate Carrasco MD LAB BLOOD [place] [address] [address] [place] [address] documented in this encounter Visit Diagnoses Diagnosis Chronic rhinitis documented in this encounter Care Teams Manager Medicare Marketing Relationship Specialty Start Date End Date Tristin Ghotra MD [address] [facility] [address] [place] [address] PCP - General 12/07/18 documented as of this encounter
--- OUTSIDE RECORDS SUMMARY | 2024-03-10 21:35 | XMS_ITS | Encounter Summary ---
Author Organization [facility] Healthcare Address [address] [place] [address] Care Team Providers Care Oil Well Shooter Name Role Phone Tristin Ghotra MD Primary Care Provider [phone] Encounter Details Date Type Department Care Team (Late st Contact Info) Description 07/17/2019 9:08 AM CDT Hospital Encounter [facility] Edgar Hager MD [address] [place] [address] Social History Tobacco Use Types Packs/Day Years Used Date Smoking Tobacco: Never Alcohol Use Standard Drinks/Week Comments Yes 0 (1 standard drink = 0.6 oz pur e alcohol) Comments Unknown Sex and Gender Information Value Date Recorded Sex Assigned at Not on file 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 Age: 44 ?Sex: Female ? MR#: [id number] ?? Loc: ? RADIOLOGY REPORT ?? Order #[id number] ?? Magnetic Resonance Imaging ? MRI Abdomen [...] T: ??07/17/2019 10:09 AM ? Report ID: [id number] ?? Reading Location: ??[id number] ? REPORT ELECTRONICALLY SIGNED IN OTHER VENDOR SYSTEM ?? Resulting Agency Comment O Procedure Note Yash Gonzalez MD - 07/17/2019 Patient Name: MELINDAPAOLAKassandra Galvez Dr: Edgar Hager MD D.O.B: 1975 Exam Date: 07/17/19 0949 Age: 44 Sex: Female MR#: [id number] Loc: RADIOLOGY REPORT Order #[id number] Magnetic Resonance Imaging MRI Abdomen Signed EXAM [...] by Yash Gonzalez M.D. JR: Report ID: [id number] Reading Location: [id number] REPORT ELECTRONICALLY SIGNED IN OTHER VENDOR SYSTEM Edgar Hager MD IM MRI PROCEDURES Final Result documented in this encounter Visit Diagnoses Not on filedocumented in this encounter Care Teams Oil Well Shooter Relationship Specialty Start Date End Date Tristin Ghotra MD [address] [facility] [address] [place] [address] PCP - General 12/07/18 documented as of this encounter
--- OUTSIDE RECORDS SUMMARY | 2024-03-10 21:35 | XMS_ITS | Encounter Summary ---
Author Organization [facility] Care Team Providers Care Voltage Inspector Name Role Phone Tristin Ghotra MD Primary Care Provider [phone] Encounter Details Date Type Department Care Team (Latest Contact Info) Description 05/20/2015 9:10 AM CDT - 05/20/2015 11:59 PM CDT Hospital Encounter [facility]CON[facility] Mason Waldrop MD [address] [facility] [address] [place] [address] Atherosclerotic heart disease of [place] coronary artery without angina pectoris; Coronary artery dissection; Essential (primary) hypertension Social History Tobacco Use Types Packs/Day Years Used Date Smoking Tobacco: Never Alcohol Use Standard Drinks/Week Comments Yes 0 (1 standard drink = 0.6 oz pur e alcohol) Comments Unknown Sex and Gender Information Value Date Recorded Sex Assigned at Not on file 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 Gender Identity Female 06/27/2022 9:35 PM [...] Plasma lipid panel (05/20/2015 9:18 AM CDT) [facility] Cholesterol 164 30 - 200 mg/dl [...] Visit Diagnoses Diagnosis 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
--- OUTSIDE RECORDS SUMMARY | 2024-03-10 21:35 | XMS_ITS | Encounter Summary ---
Author Organization [facility] Care Team Providers Care Software Sales Consultant Name Role Phone Tristin Ghotra MD Primary Care Provider [phone] Encounter Details Date Type Department Care Team (Late st Contact Info) Description 05/20/2015 - 05/20/2015 11:59 PM CDT Hospital Encounter 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
--- OUTSIDE RECORDS SUMMARY | 2024-03-10 21:35 | XMS_ITS | Encounter Summary ---
Author Organization [facility] Address [address] [address] Care Team Providers Care Access Rn Name Role Phone Tristin Ghotra MD Primary Care Provider [phone] Encounter Details Date Type Department Care Team (Late st Contact Info) Description 10/13/2021 2:30 PM CDT Lab [facility] Outpatient Lab at [address] [phone] Chronic rhinitis Social History Tobacco Use Types Packs/Day Years Used Date Smoking Tobacco: Never Alcohol Use Standard Drinks/Week Comments Yes 0 (1 standard drink = 0.6 oz pur e alcohol) Comments Unknown Sex and Gender Information Value Date Recorded Sex Assigned at Not on file 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
--- OUTSIDE RECORDS SUMMARY | 2024-03-10 21:35 | XMS_ITS | Encounter Summary ---
Author Organization [facility] Address [address] [address] Care Team Providers Care Clay Preparation Supervisor Name Role Phone Tristin Ghotra MD Primary Care Provider [phone] Reason for Visit * Diagnostic Imaging (Routine) - Closed Specialty Diagnoses / Procedures Referred By Contac t Referred To Contact Diagnoses Chronic rhinitis Mild persistent asthma without complication Dyspnea and respiratory abnormalities Procedures X-ray chest 2 views Kate Carrasco MD [address] [address] Phone: tel: fax: [address] [phone] Referral ID Status Reason Start Date Expiration Date Visits Re quested Visits Authorized [id number] Closed 10/13/2021 11/12/2022 1 1 Encounter Details Date Type Department Care Team (Latest Contact Info) Description 10/13/2021 2:15 PM CDT Ancillary Procedure [facility] Imaging at [address] [phone] Chronic rhinitis; Mild persistent asthma without complication; Dyspnea and respiratory abnormalities Social History Tobacco Use Types Packs/Day Years Used Date Smoking Tobacco: Never Alcohol Use Standard Drinks/Week Comments Yes 0 (1 standard drink = 0.6 oz pur e alcohol) Comments Unknown Sex and Gender Information Value Date Recorded Sex Assigned at Not on file 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 MJ T: Report ID: [id number] Reading Location: [id number] us Kate Carrasco MD IMG XR PROCEDURES Final Resul t documented in this encounter Visit Diagnoses Diagnosis Chronic rhinitis Mild persistent asthma without complication Dyspnea and respiratory abnormalities documented in this encounter Care Teams Clay Preparation Supervisor Relationship Specialty Start Date End Date Tristin Ghotra MD [address] [facility] [address] [place] [address] PCP - General 12/07/18 documented as of this encounter
--- OUTSIDE RECORDS SUMMARY | 2024-03-10 21:35 | XMS_ITS | Encounter Summary ---
Author Organization [facility] Address [address] [facility] [address] [place] [address] Care Team Providers Care Bow Maker Name Role Phone Tristin Ghotra MD Primary Care Provider [phone] Reason for Referral * Diagnostic Imaging (Routine) - Closed Specialty Diagnoses / Procedures Referred By Contac t Referred To Contact Diagnoses Chronic rhinitis Mild persistent asthma without complication Dyspnea and respiratory abnormalities Procedures X-ray chest 2 views Kate Carrasco MD [facility] [facility] [address] [place] [address] Phone: tel: fax: [facility] [address] [place] [phone] Referral ID Status Reason Start Date Expiration Date Visits Re quested Visits Authorized [id number] Closed 10/13/2021 11/12/2022 1 1 * (Routine) - Closed Specialty Diagnoses / Procedures Referred By Contac t Referred To Contact Diagnoses Chronic rhinitis Mild persistent asthma without complication Dyspnea and respiratory abnormalities Procedures Pulmonary Function Test -[facility]; Full PFT in PFT Lab w/Stress Ox/6 Min Walk Test Kate Carrasco MD [address] [facility] [address] [place] [address] Phone: tel: fax: Referral ID Status Reason Start Date Expiration Date Visits Re quested Visits Authorized [id number] Closed 10/13/2021 11/12/2022 1 1 Reason for Visit * Reason Comments Shortness of Breath Cough Encounter Details Date Type Department Care Team (Late st Contact Info) Description 10/13/2021 11:15 AM CDT Office Visit [facility] Pulmonary at [address] [phone] Kate Carrasco MD [address] [facility] [address] [address] Chronic rhinitis (Primary Dx); [...] on file Legal 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 No drug use. 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 [...] - 4.47 L 10/15/2021 2:59 PM CDT [facility] FVC PRE 2.71(L) 2.79 - 4.47 L 10/15/2021 2:59 PM CDT [facility] FEV1 POST 2.11(L) 2.22 - 3.57 L 10/15/2021 2:59 PM CDT [facility] FEV1 PRE 1.53(L) 2.22 - 3.57 L 10/15/2021 2:59 PM CDT [facility] [id number] 69.23(L) 70.39 - 89.85 % 10/15/2021 2:59 PM CDT [facility] [id number] 56.53(L) 70.39 - 89.85 % 10/15/2021 2:59 PM CDT [facility] [id number]% POST 1.35(L) 1.47 - 4.71 L/s 10/15/2021 2:59 PM CDT [facility] CXM47-41% PRE 0.55(L) 1.47 - 4.71 L/s 10/15/2021 2:59 PM CDT [facility] PEF POST 4.18(L) 5.70 - 8.66 L/s 10/15/2021 2:59 PM CDT [facility] PEF PRE 3.63(L) 5.70 - 8.66 L/s 10/15/2021 2:59 PM CDT [facility] FET 100% POST 9.26 sec 10/15/2021 2:59 PM CDT [facility] FET 100% PRE 14.84 sec 10/15/2021 2:59 PM CDT [facility] FIVC POST 2.91(L) 3.12 - 4.50 L 10/15/2021 2:59 PM CDT [facility] FIVC PRE 2.47(L) 3.12 - 4.50 L 10/15/2021 2:59 PM CDT [facility] FIF50% POST 3.62 L/s 10/15/2021 2:59 PM CDT [facility] FIF50% PRE 3.03 L/s 10/15/2021 2:59 PM CDT [facility] DLCOc SB 23.85 22.31 - 33.78 ml/(min*mm Hg) 10/15/2021 2:59 PM CDT [facility] VA 4.42(L) 5.63 - 5.63 L 10/15/2021 2:59 PM CDT [facility] DLCO/VA PRE 5.40 3.56 - 6.15 ml/(min*mm Hg*L) 10/15/2021 2:59 PM CDT [facility] IC SB 1.85(L) 2.73 - 2.73 L 10/15/2021 2:59 PM CDT [facility] VC PRE 3.02(L) 3.12 - 4.50 L 10/15/2021 2:59 PM CDT [facility] TLC PRE 4.20(L) 4.79 - 6.76 L 10/15/2021 2:59 PM CDT [facility] RV PRE 1.18(L) 1.32 - 2.47 L 10/15/2021 2:59 PM CDT [facility] FRC PL PRE 2.79 2.15 - 3.79 L 10/15/2021 2:59 PM CDT [facility] ERV PRE 1.60(H) 1.08 - 1.08 L 10/15/2021 2:59 PM CDT [facility] IC PRE 1.41(L) 2.73 - 2.73 L 10/15/2021 2:59 PM CDT [facility] RAW PRE 2.25(L) 3.06 - 3.06 cmH2O*s/L 10/15/2021 2:59 PM CDT [facility] BF RES 16.17 BPM 10/15/2021 2:59 PM T [facility] Anatomical Region Laterality Modality PFT 10/15/2021 [...] D: ??10/16/2021 8:28 PM T: Report ID: [id number] Reading Location: ??[id number] Procedure Note Edouard Parada MD - 10/16/2021 [...] signed by Edouard SOTO T: Report ID: [id number] Reading Location: [id number] us Kate Carrasco MD IMG XR PROCEDURES Final Resul t * Allergen Birch common silver (tree) IgE (10/13/2021 2:13 PM CDT) Birch common silver IgE <0.10 0.00 - 0.34 kUnits/L [facility] Comment:Testing performed by : [facility], [place]., [address] Blood 10/13/2021 2:13 PM CDT 10/14/2021 1:11 PM CDT Kate Carrasco MD LAB BLOOD ORDERABLES Final Re sult Performing Organization Address City/[facility]/ZIP Co de Phone Number FRED [phone] [address] [employer] [place] [address] * Allergen Elm (tree) IgE (10/13/2021 2:13 PM CDT) Pathologist [facility] Elm IgE 0.10 0.00 - 0.34 kUnits/L [facility] Comment:Testing performed by : [facility], [place]., [address] Blood 10/13/2021 2:13 PM CDT 10/14/2021 1:11 PM CDT Kate Carrasco MD LAB BLOOD ORDERABLES Final Re sult FRED [address] [address] [facility] [employer] [place] [address] * Allergen Maple/Box elder (tree) IgE (10/13/2021 2:13 PM CDT) Maple/box elder IgE <0.10 0.00 - 0.34 kUnits/L [facility] Comment:Testing performed by : [facility], [place]., [address] Blood 10/13/2021 2:13 PM CDT 10/14/2021 1:11 PM CDT Kate Carrasco MD LAB BLOOD ORDERABLES Final Re sult Performing Organization Address [facility] [place] [address] [address] [facility] [place] [address] * Allergen Mountain juniper (tree) IgE (10/13/2021 2:13 PM CDT) Mountain juniper IgE 0.15 0.00 - 0.34 kUnits/L [facility]ED Comment:Testing performed by : [facility], [place]., [address] Blood 10/13/2021 2:13 PM CDT 10/14/2021 1:11 PM CDT Kate Carrasco MD LAB BLOOD ORDERABLES Final Re sult Performing Organization Address [facility] Co de Phone Number HUSAMKATHRYN [address] [address] [facility] [place] [address] * Allergen Armbrust (tree) IgE (10/13/2021 2:13 PM CDT) Armbrust IgE <0.10 0.00 - 0.34 kUnits/L [facility] Comment:Testing performed by : [facility], [place]., [address] Blood 10/13/2021 2:13 PM CDT 10/14/2021 1:11 PM CDT Kate Carrasco MD LAB BLOOD ORDERABLES Final Re sult Performing Organization Address City/[facility] Co de Phone Number HUSAMKATHRYN [address] [address] [facility] [place] [address] * Allergen Cynthiana red (tree) IgE (10/13/2021 2:13 PM CDT) Cynth[place] IgE <0.10 0.00 - 0.34 kUnits/L [facility] [place] Comment:Testing performed by : [facility], [place]., [address] Blood 10/13/2021 2:13 PM CDT 10/14/2021 1:11 PM CDT Kate Carrasco MD LAB BLOOD ORDERABLES Final Re sult FRED [address] [address] [facility] [place] [address] * Allergen Chattanooga palestinian (tree) IgE (10/13/2021 2:13 PM CDT) [place] IgE 0.12 0.00 - 0.34 kUnits/L [facility] Comment:Testing performed by : [facility], [place]., [address] Blood 10/13/2021 2:13 PM CDT 10/14/2021 1:11 PM CDT Kate Carrasco MD LAB BLOOD ORDERABLES Final Re sult Performing Organization Address [facility] Co de Phone Number FRED [phone] [address] [facility] [place] [address] * (ABNORMAL) Allergen Kermit (tree) IgE (10/13/2021 2:13 PM CDT) Kermit (tree) IgE 0.75(H) 0.00 - 0.34 kUnits/L [facility] Comment:Testing performed by : [facility], [place]., [address] Blood 10/13/2021 2:13 PM CDT 10/14/2021 1:11 PM CDT Kate Carrasco MD LAB BLOOD ORDERABLES Final Re sult FRED [address] [address] [facility] [place] [address] * Allergen Bermuda grass (grass) IgE (10/13/2021 2:13 PM CDT) Bermuda grass IgE <0.10 0.00 - 0.34 kUnits/L [facility]ED Comment:Testing performed by : [facility], [place]., [address] Blood 10/13/2021 2:13 PM CDT 10/14/2021 1:11 PM CDT Kate Carrasco MD LAB BLOOD ORDERABLES Final Re sult Performing Organization Address City/[facility]/ZIP Co de Phone Number FRED [phone] [address] [place] [address] * Allergen Augustin grass (grass) IgE (10/13/2021 2:13 PM CDT) Augustin grass IgE <0.10 0.00 - 0.34 kUnits/L [facility]ED Comment:Testing performed by : [facility], [place]., [address] Blood 10/13/2021 2:13 PM CDT 10/14/2021 1:11 PM CDT Kate Carrasco MD LAB BLOOD ORDERABLES Final Re sult Performing Organization Address City/[facility] Co de Phone Number [facility] [address] [address] [place] [address] * Allergen Suhail grass (grass) IgE (10/13/2021 2:13 PM CDT) Suhail grass IgE <0.10 0.00 - 0.34 kUnits/L [facility] Comment:Testing performed by : [facility], [place]., [address] Blood 10/13/2021 2:13 PM CDT 10/14/2021 1:11 PM CDT Kate Carrasco MD LAB BLOOD ORDERABLES Final Re sult HUSAMKATHRYN [address] [address] [facility] [place] [address] * Allergen Plantain north korean (weed) IgE (10/13/2021 2:13 PM CDT) Pathologist [facility] Plantain north korean IgE <0.10 0.00 - 0.34 kUnits/L [facility] Comment:Testing performed by : [facility], [place]., [address] Blood 10/13/2021 2:13 PM CDT 10/14/2021 1:11 PM CDT Kate Carrasco MD LAB BLOOD ORDERABLES Final Re sult Performing Organization Address [facility] Co de Phone Number HUSAMKATHRYN [address] [address] [facility] [place] [address] * Allergen Rico's quarter (weed) IgE (10/13/2021 2:13 PM CDT) Pathologist [facility] Rico's quarters IgE <0.10 0.00 - 0.34 kUnits/L [facility] Comment:Testing performed by : [facility], [place]., [address] Blood 10/13/2021 2:13 PM CDT 10/14/2021 1:11 PM CDT Kate Carrasco MD LAB BLOOD ORDERABLES Final Re sult HUSAMKATHRYN [address] [address] [facility] [place] [address] * Allergen Pigweed, rough (weed) IgE (10/13/2021 2:13 PM CDT) Pathologist [facility] Pigweed rough IgE <0.10 0.00 - 0.34 kUnits/L FRED Comment:Testing performed by : [facility], [place]., [address] Blood 10/13/2021 2:13 PM CDT 10/14/2021 1:11 PM CDT Kate Carrasco MD LAB BLOOD ORDERABLES Final Re sult Performing Organization Address [facility] Co de Phone Number FRED [phone] [address] [facility] [place] [address] * (ABNORMAL) Allergen Ragweed short/common (weed) IgE (10/13/2021 2:13 PM CDT) Ragweed common IgE 0.42(H) 0.00 - 0.34 kUnits/L [facility] Comment:Testing performed by : [facility], [place]., [address] Blood 10/13/2021 2:13 PM CDT 10/14/2021 1:11 PM CDT Result [facility] Kate Carrasco MD LAB BLOOD ORDERABLES Final Re sult Performing Organization Address [facility] Co de Phone Number FRED [address] [address] [facility] [place] [address] * (ABNORMAL) Allergen Alternaria tenuis (mold) IgE (10/13/2021 2:13 PM CDT) Alternaria tenius IgE 2.64(H) 0.00 - 0.34 kUnits/L [facility] Comment:Testing performed by : [facility], [place]., [address] Blood 10/13/2021 2:13 PM CDT 10/14/2021 1:11 PM CDT Kaet Carrasco MD LAB BLOOD ORDERABLES Final Re sult Performing Organization Address [facility] Co de Phone Number FRED [phone] [address] [facility] [place] [address] * (ABNORMAL) Allergen Aspergillus fumigatus (mold) IgE (10/13/2021 2:13 PM CDT) Aspergillus fumigatus IgE 0.48(H) 0.00 - 0.34 kUnits/L [facility] Comment:Testing performed by : [facility], [place]., [address] Blood 10/13/2021 2:13 PM CDT 10/14/2021 1:11 PM CDT Kate Carrasco MD LAB BLOOD ORDERABLES Final Re sult Performing Organization Address City/[facility]/ZIP Co de Phone Number [facility] [address] [address] [facility] [place] [address] * (ABNORMAL) Allergen Cladosporium herbarum (mold) IgE (10/13/2021 2:13 PM CDT) Cladosporium herbarum IgE 0.38(H) 0.00 - 0.34 kUnits/L [facility] Comment:Testing performed by : [facility], [place]., [address] Blood 10/13/2021 2:13 PM CDT 10/14/2021 1:11 PM CDT Kate Carrasco MD LAB BLOOD ORDERABLES Final Re sult [facility] [address] [address] [facility] [place] [address] * (ABNORMAL) Allergen Penicillium chrysogenum (mold) IgE (10/13/2021 2:13 PM CDT) Penicillium chrysogenum IgE 0.40(H) 0.00 - 0.34 kUnits/L [facility] Comment:Testing performed by : [facility], [place]., [address] Blood 10/13/2021 2:13 PM CDT 10/14/2021 1:11 PM CDT Kate Carrasco MD LAB BLOOD ORDERABLES Final Re sult Performing Organization Address [facility] [place] [address] [address] [facility] [place] [address] * (ABNORMAL) Allergen Cat dander standard (animal) IgE (10/13/2021 2:13 PM CDT) Cat dander IgE >100.00(H) 0.00 - 0.34 kUnits/L [facility] Comment:Testing performed by : [place]., [address] Blood 10/13/2021 2:13 PM CDT 10/14/2021 1:11 PM CDT Kate Carrasco MD LAB BLOOD ORDERABLES Final Re sult Performing Organization Address [facility] Co de Phone Number HUSAMKATHRYN [address] [address] [place] [address] * Allergen Cockroach palestinian (insect) IgE (10/13/2021 2:13 PM CDT) Cockroach IgE <0.10 0.00 - 0.34 kUnits/L [facility] Comment:Testing performed by : [place]., [address] Blood 10/13/2021 2:13 PM CDT 10/14/2021 1:11 PM CDT Kate Carrasco MD LAB BLOOD ORDERABLES Final Re sult Performing Organization Address [facility] Co de Phone Number FRED [address] [address] Department [place] [address] * Allergen Dermatophagoides farniae (insect) IgE (10/13/2021 2:13 PM CDT) Dermatophyton farinae IgE 0.11 0.00 - 0.34 kUnits/L [facility] Comment:Testing performed by : [place]., [address] Blood 10/13/2021 2:13 PM CDT 10/14/2021 1:11 PM CDT Kate Carrasco MD LAB BLOOD ORDERABLES Final Re sult Performing Organization Address [facility] Co de Phone Number [facility] [address] [address] Department [place] [address] * Allergen Dermatophagoides pteronyssinus (insect) IgE (10/13/2021 2:13 PM CDT) Dermatophyton pteronyssinus IgE 0.12 0.00 - 0.34 kUnits/L [facility] Comment:Testing performed by : [facility], [place]., [address] Blood 10/13/2021 2:13 PM CDT 10/14/2021 1:11 PM CDT Result [facility] Kate Carrasco MD LAB BLOOD ORDERABLES Final Re sult Performing Organization Address [facility] Co de Phone Number [facility] [address] [address] [place] [address] * (ABNORMAL) Allergen Dog dander (animal) IgE (10/13/2021 2:13 PM CDT) Dog dander IgE 7.20(H) 0.00 - 0.34 kUnits/L [facility] Comment:Testing performed by : [place]., [address] Blood 10/13/2021 2:13 PM CDT 10/14/2021 1:11 PM CDT Kate Carrasco MD LAB BLOOD ORDERABLES Final Re sult Performing Organization Address [facility] Co de Phone Number FRED [phone] [address] [facility] [place] [address] * (ABNORMAL) Allergen Mouse urine proteins (animal) IgE (10/13/2021 2:13 PM CDT) Mouse urine proteins IgE 1.22(H) 0.00 - 0.34 kUnits/L [facility] Comment:Testing performed by : [facility], [place]., [address] Blood 10/13/2021 2:13 PM CDT 10/14/2021 1:11 PM CDT Kate Carrasco MD LAB BLOOD ORDERABLES Final Re sult Performing Organization Address [facility] Co de Phone Number FRED [address] [address] [place] [address] * (ABNORMAL) Alleren Rat urine proteins (animal) IgE (10/13/2021 2:13 PM CDT) Rat urine proteins IgE 1.79(H) 0.00 - 0.34 kUnits/L [facility] Comment:Testing performed by : [facility], [place]., [address] Blood 10/13/2021 2:13 PM CDT 10/14/2021 1:11 PM CDT Kate Carrasco MD LAB BLOOD ORDERABLES Final Re sult Performing Organization Address City/[facility]/ZIP Co de Phone Number FRED [address] [address] [facility] [place] [address] * (ABNORMAL) IgE (10/13/2021 2:13 PM CDT) IgE 387.0(H) 1.0 - 100.0 IUnits/mL [facility] Comment:Testing performed by : [facility], [address] [place]., [address] Blood 10/13/2021 2:13 PM CDT 10/14/2021 1:01 PM CDT Kate Carrasco MD LAB BLOOD [place] [address] [employer] [place] [address] * (ABNORMAL) CBC with auto differential (10/13/2021 [...] BLOOD [place] [address] [place] [address] documented in this encounter Visit Diagnoses Diagnosis [...] DAY added in this encounter Care Teams Bow Maker Relationship Specialty Start Date End Date Tristin Ghotra MD [address] [place] [address] PCP - General 12/07/18 documented as of this encounter
--- OUTSIDE RECORDS SUMMARY | 2024-03-10 21:36 | XMS_ITS | Encounter Summary ---
Author Organization [facility] Healthcare Address [address] [place] [address] Care Team Providers Care Network Operations Center Engineer Name Role Phone Unavailable Primary Care Provider Unavailabl e Encounter Details Date Type Department Care Team (Latest Contact Info) Description 03/27/2012 1:21 PM SHELL MOLDER - 03/29/2012 1:00 PM SHELL MOLDER Hospital Encounter [facility] Edgar Hager MD [address] [place] [address] Other specified disorders of biliary tract Social History Tobacco Use Types Packs/Day Years Used Date Smoking Tobacco: Never Assessed Comments Unknown Sex and Gender Information Value Date Recorded Sex Assigned at Not on file Legal Sex Female 3:22 AM SHELL MOLDER Gender Identity Female 06/27/2022 9:35 PM CDT Sexual Orientation Not on file documented as of this encounter Last Filed Vital Signs Vital Sign Reading Time Taken Comments Blood Pressure 134/77 03/29/2012 7:33 AM SHELL MOLDER Pulse 68 03/29/2012 7:33 AM SHELL MOLDER Temperature 36.8 ??C (98.3 ??F) 03/29/2012 7:33 AM CS T Respiratory Rate - - Oxygen Saturation 93% 03/29/2012 7:33 AM SHELL MOLDER Inhaled Oxygen Concentration - - Weight 63.5 kg (140 lb) 03/29/2012 7:33 AM SHELL MOLDER Height 175.3 cm (5' 9 ) 03/29/2012 7:33 AM SHELL MOLDER Body Mass Index 20.67 03/29/2012 7:33 AM SHELL MOLDER documented in this encounter Medications at Time of Discharge cholestyramine (QUESTRAN) 4 gram packet TAKE 1 PACKET 3 TIMES DAILY in juice 03/23/2012 06/28/2022 documented as of this encounter Plan of Treatment Not on file documented as of this encounter Procedures Procedure Name Priority Date/Time Associated Diagnosis Comments OXYGEN SATURATION, ARTERIAL Routine 03/29/2012 7:41 AM SHELL MOLDER CBC WITH AUTO DIFFERENTIAL Routine 03/29/2012 7:02 AM SHELL MOLDER OXYGEN SATURATION, ARTERIAL Routine 03/28/2012 1:00 PM SHELL MOLDER OXYGEN SATURATION, ARTERIAL Routine 03/28/2012 7:31 AM SHELL MOLDER documented in this encounter Results * Oxygen saturation, arterial (03/29/2012 7:41 AM SHELL MOLDER) Specimen Type Oximeter 03/29/2012 8:59 AM SHELL MOLDER [facility] HISTORICAL RESULTS Puncture Site FINGER 03/29/2012 8:59 AM [facility] [employer] HISTORICAL RESULTS O2 Sat Pulse Oximetry 96.0 >=90.0 % 03/29/2012 8:59 AM SHELL MOLDER [facility] [employer] HISTORICAL RESULTS FiO2 21.0 % 03/29/2012 8:59 AM [facility] [employer] HISTORICAL RESULTS Head Gauge Unit Operator ID [id number] 03/29/2012 8:59 AM [facility] [employer] HISTORICAL RESULTS 03/29/2012 7:41 AM SHELL MOLDER 03/29/2012 8:58 AM SHELL MOLDER Edgar Hager MD LAB BLOOD ORDERABLES Final Resu lt [facility] [employer] HISTORICAL RESULTS * (ABNORMAL) CBC with auto differential (03/29/2012 7:02 AM SHELL MOLDER) WBC 7.8 4.6 - 10.2 x10 3/ul 03/29/2012 8:02 AM [facility] [employer] HISTORICAL RESULTS RBC 3.55(L) 3.76 - 4.80 x10 6/ul 03/29/2012 8:02 AM [facility] [employer] HISTORICAL RESULTS Hemoglobin 11.4 11.0 - 15.0 g/dl 03/29/2012 8:02 AM SHELL MOLDER [facility] [employer] HISTORICAL RESULTS Hct 33.8 33.0 - 43.0 % 03/29/2012 8:02 AM SHELL MOLDER [facility] MCV 95.2 80.0 - 97.0 fl 03/29/2012 8:02 AM [facility] MCH 32.1(H) 27.0 - 31.2 pg 03/29/2012 8:02 AM [facility] [employer] HISTORICAL RESULTS MCHC 33.7 31.8 - 35.4 g/dl 03/29/2012 8:02 AM [facility] [employer] HISTORICAL RESULTS RDW 12.8 11.6 - 14.8 % 03/29/2012 8:02 AM [facility] [employer] HISTORICAL RESULTS Plt Count 205 124 - 400 x10 3/ul 03/29/2012 8:02 AM [facility] [employer] HISTORICAL RESULTS MPV 12.4(H) 7.4 - 10.4 fl 03/29/2012 8:02 AM [facility] [employer] HISTORICAL RESULTS Differential Method AUTOMATED DIFF --------- -- 03/29/2012 8:02 AM [facility] [employer] HISTORICAL RESULTS Neut % 72.2 37.0 - 85.0 % 03/29/2012 8:02 AM [facility] [employer] HISTORICAL RESULTS Immature Gran % 0.3 0.0 - 3.0 % 03/29/2012 8:02 AM [employer] [employer] HISTORICAL RESULTS Lymph % 19.7 5.0 - 45.0 % 03/29/2012 8:02 AM [facility] [employer] [facility] Real % 6.4 3.0 - 15.0 % 03/29/2012 8:02 AM [facility] [employer] HISTORICAL RESULTS Eos % 1.3 0.0 - 7.0 % 03/29/2012 8:02 AM [employer] [employer] HISTORICAL RESULTS Baso % 0.1 0.0 - 2.0 % 03/29/2012 8:02 AM [employer] [employer] HISTORICAL RESULTS ABSOLUTE COUNTS ABSOLUTE COUNTS --------- -- 03/29/2012 8:02 AM [facility] [employer] HISTORICAL RESULTS Absolute Neuts (auto) 5.6 1.7 - 8.7 x10 3/ul 03/29/2012 8:02 AM [facility] [employer] HISTORICAL RESULTS Immature Gran # 0.0 0.0 - 0.3 x10 3/ul Absolute Lymphs (auto) 1.5 0.2 - 4.6 x10 3/ul 03/29/2012 8:02 AM SHELL MOLDER [facility] HISTORICAL RESULTS Absolute Monos (auto) 0.5 0.1 - 1.5 x10 3/ul Absolute Eos (auto) 0.1 0.0 - 0.7 x10 3/ul 03/29/2012 8:02 AM SHELL MOLDER [facility] HISTORICAL RESULTS Absolute Basos (auto) 0.0 0.0 - 0.2 x10 3/ul 03/29/2012 7:02 AM SHELL MOLDER 03/29/2012 7:36 AM SHELL MOLDER us Allyssa Tucker MD LAB BLOOD ORDERABLES Final Result [facility] HISTORICAL RESULTS * Oxygen saturation, arterial (03/28/2012 1:00 PM SHELL MOLDER) Specimen Type Oximeter Puncture Site FINGER O2 Sat Pulse Oximetry 97.0 >=90.0 % FiO2 21.0 % Head Gauge Unit Operator ID [id number] 03/28/2012 1:00 PM SHELL MOLDER 03/28/2012 2:10 PM SHELL MOLDER us Edgar Hager MD LAB BLOOD ORDERABLES Final Resu lt Performing Organization Address [facility]/State/ZIP Co de Phone Number [facility] HISTORICAL RESULTS * Oxygen saturation, arterial (03/28/2012 7:31 AM SHELL MOLDER) Specimen Type Oximeter 03/28/2012 8:09 AM [facility] Puncture Site FINGER 03/28/2012 8:09 AM SHELL MOLDER [facility] HISTORICAL RESULTS O2 Sat Pulse Oximetry 97.0 >=90.0 % 03/28/2012 8:09 AM SHELL MOLDER [facility] HISTORICAL RESULTS FiO2 21.0 % 03/28/2012 8:09 AM SHELL MOLDER [facility] HISTORICAL RESULTS Head Gauge Unit Operator ID [id number] 03/28/2012 8:09 AM SHELL MOLDER [facility] HISTORICAL RESULTS 03/28/2012 7:31 AM SHELL MOLDER 03/28/2012 8:09 AM SHELL MOLDER us Edgar Hager MD LAB BLOOD ORDERABLES Final Resu lt [facility] HISTORICAL RESULTS documented in this encounter Visit Diagnoses Diagnosis Other specified disorders of biliary tract documented in this encounter
--- OUTSIDE RECORDS SUMMARY | 2024-03-10 21:36 | XMS_ITS | Encounter Summary ---
Author Organization [facility] Healthcare Address [address] [place] [address] Care Team Providers Care Stocklayer Name Role Phone Unavailable Primary Care Provider Unavailabl e Encounter Details Date Type Department Care Team (Latest Contact Info) Description 03/27/2012 7:56 AM NETWORK SECURITY ANALYST Hospital Encounter [facility] Edgar Hager MD [address] [place] [address] Abdominal pain; Other specified abnormal findings of blood chemistry; Nausea without vomiting; Pruritic disorder; Celiac artery compression syndrome (CMS/HCC) (HCC); Other acquired absence of organ Social History Tobacco Use Types Packs/Day Years Used Date Smoking Tobacco: Never Assessed Comments Unknown Sex and Gender Information Value Date Recorded Sex Assigned at Not on file Legal Sex Female 3:22 AM NETWORK SECURITY ANALYST Gender Identity Female 06/27/2022 9:35 PM [...] ABDOMEN LIMITED Routine 03/27/2012 8: 26 AM NETWORK SECURITY ANALYST US AORTA IVC Routine 03/27/2012 7:59 AM NETWORK SECURITY ANALYST documented in this encounter Results * US Abdomen Limited (03/27/2012 8:26 AM NETWORK SECURITY ANALYST) Anatomical Region Laterality Modality Abdomen N/A Ultrasound 03/27/2012 8:26 AM NETWORK SECURITY ANALYST Impressions 03/27/2012 10:19 AM NETWORK SECURITY ANALYST ?? Status post cholecystectomy. Right upper quadrant ultrasound is within normal limits THIS IS AN ELECTRONICALLY VERIFIED REPORT 03/27/2012 10:15 AM: ??Cecilio Lizarraga M.D. Cecilio Lizarraga M.D. NC:nc 10:15 AM 10:15 AM [EOD] Narrative 03/27/2012 10:19 AM NETWORK SECURITY ANALYST EXAMINATION: ??Right upper quadrant ultrasound HISTORY: ??Nausea, [...] 10:15 AM [EOD] us Edgar Hager MD [facility] US PROCEDURES Final Result * US Aorta IVC (03/27/2012 7:59 AM NETWORK SECURITY ANALYST) Anatomical Region Laterality Modality Abdomen N/A Ultrasound 03/27/2012 7:59 AM NETWORK SECURITY ANALYST Narrative 03/28/2012 1:43 PM NETWORK SECURITY ANALYST DATE: ??03/27/2012 TAPE NUMBER: REASON FOR EXAM: [...] VESSELS. RC/LC TD: ??03/28/2012 08:25:06 Job #: ??[id number] Pedro Richards MD [EOD] Procedure Note Provider, [...] IN BOTH VESSELS. RC/LC TD: 03/28/2012 08:25:06 /[id number] Pedro Richards MD [EOD] Edgar Hager MD [...]
--- OUTSIDE RECORDS SUMMARY | 2024-03-10 21:36 | XMS_ITS | Encounter Summary ---
Author Organization [facility] Facility Care Team Providers Care Professional Nursing Tutor Name Role Phone Unavailable Primary Care Provider Unavailabl e Encounter Details Date Type Department Care Team (Late st Contact Info) Description 05/01/2009 - 05/01/2009 11:59 PM LUNCHROOM FOOD SERVICE SUPERVISOR Hospital Encounter [facility] Jorge Crowe MD [address] [place] [address] Pruritic disorder; Calculus of gallbladder Social History Tobacco Use Types Packs/Day Years Used Date Smoking Tobacco: Never Assessed Comments Unknown Sex and Gender Information Value Date Recorded Sex Assigned at Not on file Legal Sex Female 3:22 AM LUNCHROOM FOOD SERVICE SUPERVISOR Gender Identity Female 06/27/2022 9:35 PM CDT Sexual Orientation Not on file documented as of this encounter Plan of Treatment Not on file documented as of this encounter Visit Diagnoses Diagnosis Pruritic disorder Unspecified pruritic disorder Calculus of gallbladder Calculus of gallbladder without mention of cholecystitis or obstruction documented in this encounter
--- OUTSIDE RECORDS SUMMARY | 2024-03-10 21:36 | XMS_ITS | Encounter Summary ---
Author Organization [facility] Facility Care Team Providers Care Stave Block Splitter Name Role Phone Unavailable Primary Care Provider Unavailabl e Encounter Details Date Type Department Care Team (Late st Contact Info) Description 04/25/2009 - 04/25/2009 11:59 PM HAIR DRYER Hospital Encounter [facility] Jorge Crowe MD [address] [place] [address] Follow-up examination, following other surgery; Abnormal levels of other serum enzymes Social History Tobacco Use Types Packs/Day Years Used Date Smoking Tobacco: Never Assessed Comments Unknown Sex and Gender Information Value Date Recorded Sex Assigned at Not on file Legal Sex Female 3:22 AM HAIR DRYER Gender Identity Female 06/27/2022 9:35 PM CDT Sexual Orientation Not on file documented as of this encounter Plan of Treatment Not on file documented as of this encounter Visit Diagnoses Diagnosis Follow-up examination, following other surgery Abnormal levels of other serum enzymes documented in this encounter
--- OUTSIDE RECORDS SUMMARY | 2024-03-10 21:36 | XMS_ITS | Encounter Summary ---
Author Organization [facility] Facility Care Team Providers Care Wool Buyer Name Role Phone Unavailable Primary Care Provider Unavailabl e Encounter Details Date Type Department Care Team (Late st Contact Info) Description 03/21/2012 - 03/21/2012 11:59 PM MYSQL DATABASE DEVELOPER Hospital Encounter [facility] Jorge Crowe MD [address] [place] [address] Other specified disorders of biliary tract; Other specified abnormal findings of blood chemistry Social History Tobacco Use Types Packs/Day Years Used Date Smoking Tobacco: Never Assessed Comments Unknown Sex and Gender Information Value Date Recorded Sex Assigned at Not on file Legal Sex Female 3:22 AM MYSQL DATABASE DEVELOPER Gender Identity Female 06/27/2022 9:35 PM CDT Sexual Orientation Not on file documented as of this encounter Plan of Treatment Not on file documented as of this encounter Procedures Procedure Name Priority Date/Time Associated Diagnosis Comments 3-D RENDERING ON MODALITY Routine 03/21/2012 2:20 PM MYSQL DATABASE DEVELOPER MRI ABDOMEN W WO CONTRAST Routine 03/21/2012 2:20 PM MYSQL DATABASE DEVELOPER BLOOD CREATININE, POINT OF CARE Routine 03/21/2012 1:33 PM MYSQL DATABASE DEVELOPER DISCHARGE LABORATORY CUMULATIVE REPORT Routine 03/21/2012 12:00 AM MYSQL DATABASE DEVELOPER documented in this encounter Results * 3-D Rendering on Modality (03/21/2012 2:20 PM MYSQL DATABASE DEVELOPER) Anatomical Region Laterality Modality N/A Magnetic Resonan ce 03/21/2012 2:20 PM MYSQL DATABASE DEVELOPER Narrative 03/22/2012 4:35 PM MYSQL DATABASE DEVELOPER EVAN AVILA M.D. MELANIE ALBERT M.D. FINAL REPORT The radiology attending physician has personally reviewed this study, and has reviewed and/or edited this written report and agrees with it. ACC# ??Date Time ??Exam [id number] Mar 21, 2012 14:20:00 [id number] MRI Abdomen wwo contrast [id number] Mar 21, 2012 14:20:00 [id number] 3-D Rendering on Modality EXAMINATION: ?? 1. [...] agrees with it. ACC# Date Time Exam [id number] Mar 21, 2012 14:20:00 [id number] MRI Abdomen wwo contrast [id number] Mar 21, 2012 14:20:00 [id number] 3-D Rendering on Modality EXAMINATION: 1. MAGNETIC [...] MRI Abdomen WWO Contrast (03/21/2012 2:20 PM MYSQL DATABASE DEVELOPER) Anatomical Region Laterality Modality Body N/A Magnetic Resonan ce 03/21/2012 2:20 PM MYSQL DATABASE DEVELOPER Narrative 03/22/2012 4:35 PM MYSQL DATABASE DEVELOPER EVAN AVILA M.D. MELANIE ALBERT M.D. FINAL REPORT The radiology attending physician has personally reviewed this study, and has reviewed and/or edited this written report and agrees with it. ACC# ??Date Time ??Exam [id number] Mar 21, 2012 14:20:00 [id number] MRI Abdomen wwo contrast [id number] Mar 21, 2012 14:20:00 [id number] 3-D Rendering on Modality EXAMINATION: ?? 1. [...] agrees with it. ACC# Date Time Exam [id number] Mar 21, 2012 14:20:00 [id number] MRI Abdomen wwo contrast [id number] Mar 21, 2012 14:20:00 [id number] 3-D Rendering on Modality EXAMINATION: 1. MAGNETIC [...] creatinine, point of care (03/21/2012 1:33 PM MYSQL DATABASE DEVELOPER) Creatinine, POC, bld 0.7 0.6 - 1.1 mg/dl HISTORICAL RESULTS Blood specimen (specimen) 03/21/2012 1:33 PM MYSQL DATABASE DEVELOPER us Jorge Crowe MD LAB BLOOD ORDERABLES F inal Result HISTORICAL RESULTS * Discharge Laboratory Cumulative Report (03/21/2012 12:00 AM MYSQL DATABASE DEVELOPER) 03/21/2012 Narrative HISTORICAL RESULTS - 03/21/2012 3:17 PM MYSQL DATABASE DEVELOPER ?[facility] ?Department of Laboratories ? [address] [facility] [address] ? [place] [address] Patient Name: ??PAOLA MCKEON V Med Rec Number: [id number] Fin Number: ?[id number] Date: ?1975 Sex/Age: ? Female 37 years Admit Date: ?03/21/2012 Discharge Date: 03/21/2012 Doctor: ?Jorge Crowe Facility: ?[facility] Location: ?[facility] Chart Printed: 03/21/2012 15:17 ?? [...]
--- OUTSIDE RECORDS SUMMARY | 2024-03-10 21:36 | XMS_ITS | Encounter Summary ---
Author Organization [facility] Healthcare Address [address] [place] [address] Care Team Providers Care Set Rider Name Role Phone Unavailable Primary Care Provider Unavailabl e Encounter Details Date Type Department Care Team (Latest Contact Info) Description 06/13/2012 4:04 PM CDT Hospital Encounter [facility] Edgar Hager MD [address] [place] [address] Abnormal levels of other serum enzymes; Pruritic disorder; Abdominal pain Social History Tobacco Use Types Packs/Day Years Used Date Smoking Tobacco: Never Assessed Comments Unknown Sex and Gender Information Value Date Recorded Sex Assigned at Not on file Legal Sex Female 3:22 AM WIRE SETTER Gender Identity Female 06/27/2022 9:35 PM [...] 10.2 x10 3/ul 06/13/2012 5:02 PM CDT [employer] HISTORICAL RESULTS RBC 3.94 3.76 - 4.80 x10 6/ul 06/13/2012 5:02 PM CDT [facility] HISTORICAL RESULTS Hemoglobin 12.6 11.0 - 15.0 g/dl 06/13/2012 5:02 PM CDT [employer] HISTORICAL RESULTS Hct 37.1 33.0 - 43.0 % 06/13/2012 5:02 PM CDT [employer] [facility] [employer] HISTORICAL RESULTS MCV 94.2 80.0 - 97.0 fl 06/13/2012 5:02 PM CDT [facility] [employer] HISTORICAL RESULTS MCH 32.0(H) 27.0 - 31.2 pg 06/13/2012 5:02 PM CDT [employer] [facility] [employer] HISTORICAL RESULTS MCHC 34.0 31.8 - 35.4 g/dl 06/13/2012 5:02 PM CDT [employer] [facility] [employer] HISTORICAL RESULTS RDW 12.5 11.6 - 14.8 % 06/13/2012 5:02 PM CDT [facility] [employer] HISTORICAL RESULTS Plt Count 212 124 - 400 x10 3/ul 06/13/2012 5:02 PM CDT [employer] [facility] [employer] HISTORICAL RESULTS MPV 10.8(H) 7.4 - 10.4 fl 06/13/2012 5:02 PM CDT [employer] HISTORICAL RESULTS 06/13/2012 4:28 PM CDT 06/13/2012 4:46 PM CDT Edgar Hager MD LAB BLOOD ORDERABLES Final Resu lt Performing Organization Address [facility]/ZIP Co de Phone Number [facility] HISTORICAL RESULTS * Lipase (06/13/2012 4:28 PM CDT) Lipase 30 13 - 60 U/L 06/13/2012 5:27 PM CDT [facility] HISTORICAL RESULTS 06/13/2012 4:28 PM CDT 06/13/2012 4:46 PM CDT Edgar Hager MD LAB BLOOD ORDERABLES Final Resu lt Performing Organization Address [facility] Phone Number [facility] HISTORICAL RESULTS * Amylase (06/13/2012 4:28 PM CDT) Amylase 72 28 - 100 U/L 06/13/2012 5:27 PM CDT [facility] HISTORICAL RESULTS 06/13/2012 4:28 PM CDT 06/13/2012 4:46 PM CDT Edgar Hager MD LAB BLOOD ORDERABLES Final Resu lt Performing Organization Address [facility] de Phone Number [facility] HISTORICAL RESULTS * Alkaline phosphatase (06/13/2012 4:28 PM CDT) Alkaline Phosphatase 75 35 - 104 U/L 06/13/2012 5:27 PM CDT [facility] HISTORICAL RESULTS 06/13/2012 4:28 PM CDT 06/13/2012 4:46 PM CDT Edgar Hager MD LAB BLOOD ORDERABLES Final Resu lt Performing Organization Address [facility] Co de Phone Number [facility] HISTORICAL RESULTS * ALT (06/13/2012 4:28 PM CDT) ALT 15 0 - 31 U/L 06/13/2012 5:27 PM CDT [facility] HISTORICAL RESULTS 06/13/2012 4:28 PM CDT 06/13/2012 4:46 PM CDT us Edgar Hager MD LAB BLOOD ORDERABLES Final Resu lt Performing Organization Address [facility] Co de Phone Number [facility] HISTORICAL RESULTS * AST (06/13/2012 4:28 PM CDT) AST 17 0 - 32 U/L 06/13/2012 5:27 PM CDT [facility] HISTORICAL RESULTS 06/13/2012 4:28 PM CDT 06/13/2012 4:46 PM CDT us Edgar Hager MD LAB BLOOD ORDERABLES Final Resu lt Performing Organization Address [facility] de Phone Number [facility] HISTORICAL RESULTS * Bilirubin, total and direct (06/13/2012 4:28 PM CDT) Total Bilirubin 0.4 0.0 - 1.2 mg/dL 06/13/2012 5:27 PM CDT [facility] HISTORICAL RESULTS Direct Bilirubin < 0.20 0.00 - 0.25 mg/dL 06/13/2012 5:27 PM CDT [facility] HISTORICAL RESULTS 06/13/2012 4:28 PM CDT 06/13/2012 4:46 PM CDT us Edgar Hager MD LAB BLOOD ORDERABLES Final Resu lt Performing Organization Address [facility] Co de Phone Number [facility] HISTORICAL RESULTS documented in this encounter Visit Diagnoses Diagnosis Abnormal levels of other serum enzymes Pruritic disorder Unspecified pruritic disorder Abdominal pain Abdominal pain, unspecified site documented in this encounter
--- OUTSIDE RECORDS SUMMARY | 2024-03-10 21:36 | XMS_ITS | Encounter Summary ---
Author Organization [facility] Facility Care Team Providers Care Area Attendant Name Role Phone Unavailable Primary Care Provider Unavailabl e Encounter Details Date Type Department Care Team (Late st Contact Info) Description 05/07/2009 9:10 AM CDT - 05/08/2009 7:54 PM CDT Hospital Encounter [facility] Xu Vines MD [address] [place], [place] Anca Judge MD [address] [place] [address] Other acute postoperative pain; Essential hypertension; Pruritic [...] on file Legal Sex Female 3:22 AM STAVE INSPECTOR Gender Identity Female 06/27/2022 9:35 PM [...]
--- OUTSIDE RECORDS SUMMARY | 2024-03-10 21:36 | XMS_ITS | Encounter Summary ---
Author Organization [facility] Healthcare Address [address] [place] [address] Care Team Providers Care Plug Overwrap Machine Tender Name Role Phone Tristin Ghotra MD Primary Care Provider [phone] Encounter Details Date Type Department Care Team (Latest Contact Info) Description 10/30/2013 9:08 AM CDT Hospital Encounter [facility] Edgar Hager MD [address] [place] [address] Other specified abnormal findings of blood chemistry Social History Tobacco Use Types Packs/Day Years Used Date Smoking Tobacco: Never Alcohol Use Standard Drinks/Week Comments Yes 0 (1 standard drink = 0.6 oz pur e alcohol) Comments Unknown Sex and Gender Information Value Date Recorded Sex Assigned at Not on file Legal Sex Female 3:22 AM HUMIDIFIER ATTENDANT Gender Identity Female 06/27/2022 9:35 PM [...] - 104 U/L 10/30/2013 9:47 AM CDT [facility] HISTORICAL RESULTS 10/30/2013 9:13 AM CDT 10/30/2013 9:15 AM CDT us Edgar Hager MD LAB BLOOD ORDERABLES Final Resu lt [facility] HISTORICAL RESULTS * (ABNORMAL) ALT (10/30/2013 9:13 AM CDT) ALT 94(H) 0 - 33 U/L 10/30/2013 9:47 AM CDT [facility] HISTORICAL RESULTS 10/30/2013 9:13 AM CDT 10/30/2013 9:15 AM CDT us Edgar Hager MD LAB BLOOD ORDERABLES Final Resu lt [facility] HISTORICAL RESULTS * (ABNORMAL) AST (10/30/2013 9:13 AM CDT) AST 72(H) 0 - 32 U/L 10/30/2013 9:47 AM CDT [facility] HISTORICAL RESULTS 10/30/2013 9:13 AM CDT 10/30/2013 9:15 AM CDT us Edgar Hager MD LAB BLOOD ORDERABLES Final Resu lt [facility] HISTORICAL RESULTS * Bilirubin, total and direct (10/30/2013 9:13 AM CDT) Total Bilirubin 0.6 0.0 - 1.2 mg/dL 10/30/2013 9:47 AM CDT [facility] HISTORICAL RESULTS Direct Bilirubin < 0.20 0.00 - 0.25 mg/dL 10/30/2013 9:47 AM CDT [facility] HISTORICAL RESULTS 10/30/2013 9:13 AM CDT 10/30/2013 9:15 AM CDT us Edgar Hager MD LAB BLOOD ORDERABLES Final Resu lt Performing Organization Address City/[facility]/ZIP Co de Phone Number [facility] HISTORICAL RESULTS * Albumin (10/30/2013 9:13 AM CDT) Albumin 4.3 3.5 - 5.2 g/dL 10/30/2013 9:47 AM CDT [facility] HISTORICAL RESULTS 10/30/2013 9:13 AM CDT 10/30/2013 9:15 AM CDT Edgar Hager MD LAB BLOOD ORDERABLES Final Resu lt [facility] HISTORICAL RESULTS documented in this encounter Visit Diagnoses Diagnosis Other specified abnormal findings of blood chemistry documented in this encounter Care Teams Plug Overwrap Machine Tender Relationship Specialty Start Date End Date Tristin Ghotra MD [address] [place] [address] PCP - General 10/11/13 12/06/18 documented as of this encounter
--- OUTSIDE RECORDS SUMMARY | 2024-03-10 21:36 | XMS_ITS | Encounter Summary ---
Author Organization [facility] Healthcare Address [address] [place] [address] Care Team Providers Care Certified Court Interpreter Name Role Phone Tristin Ghotra MD Primary Care Provider [phone] Encounter Details Date Type Department Care Team (Latest Contact Info) Description 10/09/2013 12:37 PM CDT Hospital Encounter [facility] Edgar Hager MD [address] [place] [address] Obstruction of bile duct Social History Tobacco Use Types Packs/Day Years Used Date Smoking Tobacco: Never Alcohol Use Standard Drinks/Week Comments Yes 0 (1 standard drink = 0.6 oz pur e alcohol) Comments Unknown Sex and Gender Information Value Date Recorded Sex Assigned at Not on file Legal Sex Female 3:22 AM WARE DRESSER Gender Identity Female 06/27/2022 9:35 PM CDT [...] 10.2 x10 3/ul 10/09/2013 1:28 PM CDT [employer] HISTORICAL RESULTS RBC 3.72(L) 3.76 - 4.80 x10 6/ul 10/09/2013 1:28 PM CDT [employer] HISTORICAL RESULTS Hemoglobin 12.1 11.0 - 15.0 g/dl 10/09/2013 1:28 PM CDT [facility] [employer] HISTORICAL RESULTS Hct 35.2 33.0 - 43.0 % 10/09/2013 1:28 PM CDT [facility] [employer] HISTORICAL RESULTS MCV 94.6 80.0 - 97.0 fl 10/09/2013 1:28 PM CDT [facility] [employer] HISTORICAL RESULTS MCH 32.5(H) 27.0 - 31.2 pg 10/09/2013 1:28 PM CDT [facility] [employer] HISTORICAL RESULTS MCHC 34.4 31.8 - 35.4 g/dl 10/09/2013 1:28 PM CDT [facility] [employer] HISTORICAL RESULTS RDW 11.8 11.6 - 14.8 % Plt Count 212 124 - 400 x10 3/ul MPV 11.5(H) 7.4 - 10.4 fl 10/09/2013 1:09 PM CDT 10/09/2013 1:23 PM CDT us Edgar Hager MD LAB BLOOD ORDERABLES Final Resu lt Performing Organization Address [facility] Co de Phone Number [facility] HISTORICAL RESULTS * Lipase (10/09/2013 1:09 PM CDT) Pathologist [facility] Lipase 27 13 - 60 U/L 10/09/2013 1:09 PM CDT 10/09/2013 1:23 PM CDT us Edgar Hager MD LAB BLOOD ORDERABLES Final Resu lt Performing Organization Address [facility] Co de Phone Number [facility] HISTORICAL RESULTS * Amylase (10/09/2013 1:09 PM CDT) Pathologist [facility] Amylase 74 28 - 100 U/L 10/09/2013 1:09 PM CDT 10/09/2013 1:23 PM CDT Edgar Hager MD LAB BLOOD ORDERABLES Final Resu lt Performing Organization Address [facility] Co de Phone Number [facility] HISTORICAL RESULTS * (ABNORMAL) Alkaline phosphatase (10/09/2013 1:09 PM CDT) Pathologist [facility] Alkaline Phosphatase 277(H) 35 - 104 U/L 10/09/2013 1:09 PM CDT 10/09/2013 1:23 PM CDT Result [facility] us Edgar Hager MD LAB BLOOD ORDERABLES Final Resu lt Performing Organization Address [facility] Phone Number [facility] HISTORICAL RESULTS * (ABNORMAL) ALT (10/09/2013 1:09 PM CDT) ALT 183(H) 0 - 33 U/L 10/09/2013 1:09 PM CDT 10/09/2013 1:23 PM CDT Edgar Hager MD LAB BLOOD ORDERABLES Final Resu lt Performing Organization Address [facility] Phone Number [facility] HISTORICAL RESULTS * (ABNORMAL) AST (10/09/2013 1:09 PM CDT) AST 65(H) 0 - 32 U/L 10/09/2013 1:09 PM CDT 10/09/2013 1:23 PM CDT Result [facility] Edgar Hager MD LAB BLOOD ORDERABLES Final Resu lt Performing Organization Address [facility] Phone Number [facility] HISTORICAL RESULTS * Bilirubin, total and direct (10/09/2013 1:09 PM CDT) Total Bilirubin 0.6 0.0 - 1.2 mg/dL Direct Bilirubin < 0.20 0.00 - 0.25 mg/dL 10/09/2013 1:09 PM CDT 10/09/2013 1:23 PM CDT Result [facility] us Edgar Hager MD LAB BLOOD ORDERABLES Final Resu lt Performing Organization Address [facility]/ZIP Co de Phone Number [facility] HISTORICAL RESULTS * Albumin (10/09/2013 1:09 PM CDT) Albumin 4.4 3.5 - 5.2 g/dL 10/09/2013 1:09 PM CDT 10/09/2013 1:23 PM CDT us Edgar Hager MD LAB BLOOD ORDERABLES Final Resu lt Performing Organization Address [facility] Co de Phone Number [facility] HISTORICAL RESULTS documented in this encounter Visit Diagnoses Diagnosis Obstruction of bile duct documented in this encounter Care Teams Certified Court Interpreter Relationship Specialty Start Date End Date Tristin Ghotra MD [address] [place] [address] PCP - General 09/27/13 10/10/13 documented as of this encounter
--- OUTSIDE RECORDS SUMMARY | 2024-03-10 21:36 | XMS_ITS | Encounter Summary ---
Author Organization [facility] Facility Care Team Providers Care Quilt Stuffer Name Role Phone Unavailable Primary Care Provider Unavailabl e Encounter Details Date Type Department Care Team (Late st Contact Info) Description 01/10/2012 - 01/10/2012 11:59 PM RVDA MASTER CERTIFIED RV TECHNICIAN Hospital Encounter [facility] Jorge Crowe MD [address] [place] [address] Pruritic disorder Social History Tobacco Use Types Packs/Day Years Used Date Smoking Tobacco: Never Assessed Comments Unknown Sex and Gender Information Value Date Recorded Sex Assigned at Not on file Legal Sex Female 3:22 AM RVDA MASTER CERTIFIED RV TECHNICIAN Gender Identity Female 06/27/2022 9:35 PM CDT Sexual Orientation Not on file documented as of this encounter Plan of Treatment Not on file documented as of this encounter Visit Diagnoses Diagnosis Pruritic disorder Unspecified pruritic disorder documented in this encounter
--- OUTSIDE RECORDS SUMMARY | 2024-03-10 21:36 | XMS_ITS | Encounter Summary ---
Author Organization [facility] Healthcare Address [address] [place] [address] Care Team Providers Care Commercial Loan Analyst Name Role Phone Unavailable Primary Care Provider Unavailabl e Encounter Details Date Type Department Care Team (Latest Contact Info) Description 04/16/2012 10:30 AM LEAD MATERIAL HANDLER Hospital Encounter [facility] OP Pedro Richards MD [address] [facility] [address] [address] Abdominal pain; Abnormal levels of other serum enzymes; Calculus of kidney Social History Tobacco Use Types Packs/Day Years Used Date Smoking Tobacco: Never Assessed Comments Unknown Sex and Gender Information Value Date Recorded Sex Assigned at Not on file Legal Sex Female 3:22 AM LEAD MATERIAL HANDLER Gender Identity Female 06/27/2022 9:35 PM CDT [...] TOTAL AND DIRECT Routine 04/16/2012 11:25 AM LEAD MATERIAL HANDLER ALT Routine 04/16/2012 11:25 AM LEAD MATERIAL HANDLER AST Routine 04/16/2012 11:25 AM LEAD MATERIAL HANDLER ALKALINE PHOSPHATASE Routine 04/16/2012 11:25 AM LEAD MATERIAL HANDLER ALBUMIN Routine 04/16/2012 11:[address] ABDOMEN PELVIS W WO CONTRAST Routine 04/16/2012 10:30 AM LEAD MATERIAL HANDLER documented in this encounter Results * (ABNORMAL) Alkaline phosphatase (04/16/2012 11:25 AM LEAD MATERIAL HANDLER) Alkaline Phosphatase 214(H) 35 - 104 U/L 04/16/2012 12:41 PM LEAD MATERIAL HANDLER [facility] HISTORICAL RESULTS 04/16/2012 11:2 5 AM LEAD MATERIAL HANDLER 04/16/2012 12:01 PM LEAD MATERIAL HANDLER us Pedro Richards MD LAB BLOOD ORDERABLES Final Result Performing Organization Address [facility] de Phone Number [facility] HISTOR[facility] RESULTS * (ABNORMAL) ALT (04/16/2012 11:25 AM LEAD MATERIAL HANDLER) ALT 446(H) 0 - 31 U/L 04/16/2012 12:41 PM LEAD MATERIAL HANDLER [facility] [employer] [facility] HISTORICAL RESULTS 04/16/2012 11:2 5 AM LEAD MATERIAL HANDLER 04/16/2012 12:01 PM LEAD MATERIAL HANDLER Pedro Richards MD LAB BLOOD ORDERABLES Final Result Performing Organization Address [facility] de Phone Number [facility] [employer] [facility] HISTORICAL RESULTS * (ABNORMAL) AST (04/16/2012 11:25 AM LEAD MATERIAL HANDLER) AST 237(H) 0 - 32 U/L 04/16/2012 12:41 PM LEAD MATERIAL HANDLER [facility] [employer] [facility] HISTORICAL RESULTS 04/16/2012 11:2 5 AM LEAD MATERIAL HANDLER 04/16/2012 12:01 PM LEAD MATERIAL HANDLER us Pedro Richards MD LAB BLOOD ORDERABLES Final Result Performing Organization Address [facility] Co de Phone Number [facility] [employer] [facility] HISTORICAL RESULTS * (ABNORMAL) Bilirubin, total and direct (04/16/2012 11:25 AM LEAD MATERIAL HANDLER) Total Bilirubin 1.9(H) 0.0 - 1.2 mg/dL Direct Bilirubin 1.05(H) 0.00 - 0.25 mg/dL 04/16/2012 11:2 5 AM LEAD MATERIAL HANDLER 04/16/2012 12:01 PM LEAD MATERIAL HANDLER Pedro Richards MD LAB BLOOD ORDERABLES Final Result Performing Organization Address [facility] Co de Phone Number [facility] HISTORICAL RESULTS * Albumin (04/16/2012 11:25 AM LEAD MATERIAL HANDLER) Pathologist [facility] Albumin 3.9 3.5 - 5.2 g/dL 04/16/2012 11:2 5 AM LEAD MATERIAL HANDLER 04/16/2012 12:01 PM LEAD MATERIAL HANDLER Pedro Richards MD LAB BLOOD ORDERABLES Final Result Performing Organization Address [facility] de Phone Number [facility] HISTORICAL RESULTS * CT Abdomen Pelvis W WO Contrast (04/16/2012 10:30 AM LEAD MATERIAL HANDLER) Anatomical Region Laterality Modality Body N/A Computed Tomogra phy 04/16/2012 10:3 0 AM LEAD MATERIAL HANDLER Narrative 04/17/2012 1:12 PM LEAD MATERIAL HANDLER EXAMINATION: ??CT of the abdomen and pelvis [...]
--- OUTSIDE RECORDS SUMMARY | 2024-03-10 21:36 | XMS_ITS | Encounter Summary ---
Author Organization [facility] Healthcare Address [address] [place] [address] Care Team Providers Care Desk Lieutenant Name Role Phone Unavailable Primary Care Provider Unavailabl e Encounter Details Date Type Department Care Team (Latest Contact Info) Description 04/10/2012 11:10 AM SOLAR DESIGNER/INSTALLER Hospital Encounter [facility] Edgar Hager MD [address] [place] [address] Acute pancreatitis; Abdominal pain Social History Tobacco Use Types Packs/Day Years Used Date Smoking Tobacco: Never Assessed Comments Unknown Sex and Gender Information Value Date Recorded Sex Assigned at Not on file Legal Sex Female 3:22 AM SOLAR DESIGNER/INSTALLER Gender Identity Female 06/27/2022 9:35 PM CDT [...] CBC WITHOUT DIFFERENTIAL Routine 04/10/2012 11:15 AM SOLAR DESIGNER/INSTALLER BILIRUBIN, TOTAL AND DIRECT Routine 04/10/2012 11:15 AM SOLAR DESIGNER/INSTALLER LIPASE Routine 04/10/2012 11:15 AM SOLAR DESIGNER/INSTALLER AMYLASE Routine 04/10/2012 11:15 AM SOLAR DESIGNER/INSTALLER COMPREHENSIVE METABOLIC PANEL Routine 04/10/2012 11:15 AM SOLAR DESIGNER/INSTALLER documented in this encounter Results * (ABNORMAL) Comprehensive metabolic panel (04/10/2012 11:15 AM SOLAR DESIGNER/INSTALLER) Sodium 134(L) 135 - 145 mmol/L 04/10/2012 5:39 PM [facility] [employer] HISTORICAL RESULTS Potassium 3.6 3.3 - 5.1 mmol/L 04/10/2012 5:39 PM [facility] [employer] HISTORICAL RESULTS Chloride 99 96 - 108 mmol/L 04/10/2012 5:39 PM [facility] Carbon Dioxide 28 22 - 32 mmol/L 04/10/2012 5:39 PM SOLAR DESIGNER/INSTALLER [facility] Anion Gap 7 Glucose 66(L) 70 - 110 mg/dL BUN 7 6 - 20 mg/dL 04/10/2012 5:39 PM [facility] [employer] [facility] HISTORICAL RESULTS Creatinine 0.5 0.5 - 1.1 mg/dL 04/10/2012 5:39 PM SOLAR DESIGNER/INSTALLER [facility] [employer] [facility] HISTORICAL RESULTS Kidney Disease Stage > 90 mL/MIN 04/10/2012 5:39 PM SOLAR DESIGNER/INSTALLER [facility] [employer] H[facility]OR[facility] Comment: NOTE; ??The GFR is [...] - 104 U/L 04/10/2012 11:1 5 AM SOLAR DESIGNER/INSTALLER 04/10/2012 12:20 PM SOLAR DESIGNER/INSTALLER us Edgar Hager MD LAB BLOOD ORDERABLES Final Resu lt [facility] HISTORICAL RESULTS * (ABNORMAL) CBC without differential (04/10/2012 11:15 AM SOLAR DESIGNER/INSTALLER) WBC 8.0 4.6 - 10.2 x10 3/ul [...] - 10.4 fl 04/10/2012 11:1 5 AM SOLAR DESIGNER/INSTALLER 04/10/2012 12:20 PM SOLAR DESIGNER/INSTALLER Edgar Hager MD LAB BLOOD ORDERABLES Final Resu lt [facility] HISTORICAL RESULTS * Lipase (04/10/2012 11:15 AM SOLAR DESIGNER/INSTALLER) Lipase 49 13 - 60 U/L 04/10/2012 11:1 5 AM SOLAR DESIGNER/INSTALLER 04/10/2012 12:20 PM SOLAR DESIGNER/INSTALLER Edgar Hager MD LAB BLOOD ORDERABLES Final Resu lt [facility] HISTORICAL RESULTS * Amylase (04/10/2012 11:15 AM SOLAR DESIGNER/INSTALLER) Amylase 78 28 - 100 U/L 04/10/2012 1:02 PM SOLAR DESIGNER/INSTALLER [facility] HISTORICAL RESULTS 04/10/2012 11:1 5 AM SOLAR DESIGNER/INSTALLER 04/10/2012 12:20 PM SOLAR DESIGNER/INSTALLER Result [facility] Edgar Hager MD LAB BLOOD ORDERABLES Final Resu lt [facility] [employer] HISTORICAL RESULTS * (ABNORMAL) Bilirubin, total and direct (04/10/2012 11:15 AM SOLAR DESIGNER/INSTALLER) Direct Bilirubin 0.82(H) 0.00 - 0.25 mg/dL 04/10/2012 1:02 PM SOLAR DESIGNER/INSTALLER [facility] [employer] HISTORICAL RESULTS 04/10/2012 11:1 5 AM SOLAR DESIGNER/INSTALLER 04/10/2012 12:20 PM SOLAR DESIGNER/INSTALLER Edgar Hager MD LAB BLOOD ORDERABLES Final Resu lt Performing Organization Address City/[facility]/ZIP Co de Phone Number [facility] [employer] HISTORICAL RESULTS documented in this encounter Visit Diagnoses Diagnosis Acute pancreatitis Abdominal pain Abdominal pain, unspecified site documented in this encounter
--- OUTSIDE RECORDS SUMMARY | 2024-03-10 21:36 | XMS_ITS | Encounter Summary ---
Author Organization [facility] Healthcare Address [address] [place] [address] Care Team Providers Care Finish Repair Worker Name Role Phone Tristin Ghotra MD Primary Care Provider [phone] Encounter Details Date Type Department Care Team (Latest Contact Info) Description 10/30/2013 7:47 AM CDT Hospital Encounter [facility] Edgar Hager MD [address] [place], [place] [id number] Obstruction of bile duct; Other specified abnormal findings of blood chemistry; Abdominal pain Social History Tobacco Use Types Packs/Day Years Used Date Smoking Tobacco: Never Alcohol Use Standard Drinks/Week Comments Yes 0 (1 standard drink = 0.6 oz pur e alcohol) Comments Unknown Sex and Gender Information Value Date Recorded Sex Assigned at Not on file Legal Sex Female 3:22 AM PRINTED CIRCUIT BOARD DRAFTER Gender Identity Female 06/27/2022 9:35 PM CDT [...] Grider M.D. AT:stefany 10:58 AM 11:05 AM [facility] [EOD] Narrative 10/30/2013 4:30 PM CDT [...] Grider M.D. AT:stefany 10:58 AM 11:05 AM [facility] [EOD] Edgar Hager MD IM MRI PROCEDURES Final Result documented in this encounter Visit Diagnoses Diagnosis Obstruction of bile duct Other specified abnormal findings of blood chemistry Abdominal pain Abdominal pain, unspecified site documented in this encounter Care Teams Finish Repair Worker Relationship Specialty Start Date End Date Tristin Ghotra MD [address] [place] [phone] PCP - General 10/11/13 12/06/18 documented as of this encounter
--- OUTSIDE RECORDS SUMMARY | 2024-03-10 21:36 | XMS_ITS | Encounter Summary ---
Author Organization [facility] Facility Care Team Providers Care Car Audio Installer Name Role Phone Unavailable Primary Care Provider Unavailabl e Encounter Details Date Type Department Care Team (Late st Contact Info) Description 01/18/2012 - 02/20/2012 11:59 PM STONECUTTER APPRENTICE HAND Hospital Encounter [facility] Kendra Petty MD [address] [place] [address] Social History Tobacco Use Types Packs/Day Years Used Date Smoking Tobacco: Never Assessed Comments Unknown Sex and Gender Information Value Date Recorded Sex Assigned at Not on file Legal Sex Female 3:22 AM STONECUTTER APPRENTICE HAND Gender Identity Female 06/27/2022 9:35 PM CDT Sexual Orientation Not on file documented as of this encounter Plan of Treatment Not on file documented as of this encounter Visit Diagnoses Not on filedocumented in this encounter
--- OUTSIDE RECORDS SUMMARY | 2024-03-10 21:37 | XMS_ITS | Encounter Summary ---
Author Organization [facility] Facility Care Team Providers Care Violin Restorer Name Role Phone Unavailable Primary Care Provider Unavailabl e Encounter Details Date Type Department Care Team (Late st Contact Info) Description 04/17/2009 - 04/17/2009 11:59 PM JUMPBASTING CANVAS BASTER Hospital Encounter [facility] CL[facility] Jorge Crowe MD [address] [place] [address] Abnormal results of liver function studies Social History Tobacco Use Types Packs/Day Years Used Date Smoking Tobacco: Never Assessed Comments Unknown Sex and Gender Information Value Date Recorded Sex Assigned at Not on file Legal Sex Female 3:22 AM JUMPBASTING CANVAS BASTER Gender Identity Female 06/27/2022 9:35 PM CDT Sexual Orientation Not on file documented as of this encounter Plan of Treatment Not on file documented as of this encounter Visit Diagnoses Diagnosis Abnormal results of liver function studies Nonspecific abnormal results of liver function study documented in this encounter
--- OUTSIDE RECORDS SUMMARY | 2024-03-10 21:37 | XMS_ITS | Encounter Summary ---
Author Organization [facility] Care Team Providers Care Laundry Superintendent Name Role Phone Unavailable Primary Care Provider Unavailabl e Encounter Details Date Type Department Care Team (Late st Contact Info) Description 05/26/2006 9:47 AM CDT - 05/26/2006 7:28 PM CDT Hospital Encounter [facility] Rigo Fraser MD [address] [place] [id number] Social History Tobacco Use Types Packs/Day Years Used Date Smoking Tobacco: Never Assessed Comments Unknown Sex and Gender Information Value Date Recorded Sex Assigned at Not on file Legal Sex Female 3:22 AM STITCHER SET UP OPERATOR AUTOMATIC Gender Identity Female 06/27/2022 9:35 PM CDT Sexual Orientation Not on file documented as of this encounter Plan of Treatment Not on file documented as of this encounter Visit Diagnoses Not on filedocumented in this encounter
--- OUTSIDE RECORDS SUMMARY | 2024-03-14 06:13 | XMS_ITS | Clinical Summary ---
Author Organization [facility] Address [address] [facility] [place] [address] Care Team Providers Care Transit Department Clerk Name Role Phone Tristin Ghotra MD Primary Care Provider [phone] Source Comments [facility],non-owned Affiliates and Associated Physician Practices is amultiple site organization consisting of ambulatory clinics and hospital sitesin [place] and [place]. This disclosure is being madepursuant to the Care Everywhere program and may not contain all information available regarding this patient. Last updated 17.[facility] Allergies No known active allergies Medications * [...] Diagnosed Date Elevated LFTs 09/06/2017 History of ID (myocardial infarction) 09/06/2017 Overview (09/07/2017): Echo 09/2013 [...] age to complete this topic Care Teams Transit Department Clerk Relationship Specialty Start Date End Date Tristin Ghotra MD [address] [place] [address] PCP - General 04/04/12
--- OUTSIDE RECORDS SUMMARY | 2024-03-14 06:13 | XMS_ITS | Data Portability ---
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 Assessment Encounter Date Assessment Date Assessment LastModified [...] available Lab lipid panel, serum 2022 023 [facility] [employer] [facility], [address], [place], [address], 11/21/2022 13:05:37 CMP, serum or plasma 2022 023 [facility] [employer] [facility], [address], [place], [address], 11/21/2022 13:05:40 CBC w/ auto diff 2022 023 [facility] [employer] [facility], [address], [place], [address], 11/21/2022 13:05:41 microalbu min/creat inine, mass ratio, urine 2022 023 [facility] [employer] [facility], [address], [place], [address], 11/21/2022 13:05:38 HIV 1+2 Ab + HIV1 p24 Ag, quantitat ethan immunoass ay, serum 2022 023 [employer] [employer] [facility], [address], [place], [address], 11/21/2022 13:05:39 lipid panel, serum 2022 023 [facility] [employer] [facility], [address], [place], [address], 12/12/2022 12:40:29 microalbu min/creat inine, mass ratio, urine 2022 023 [employer] [employer] [facility], [address], [place], [address], 12/12/2022 12:40:30 HIV 1+2 Ab + HIV1 p24 Ag, quantitat ethan immunoass ay, serum 2022 023 [facility] [employer] [facility], [address], [place], [address], 12/12/2022 12:40:31 CMP, serum or plasma 2022 023 [employer] [employer] [facility], [address], [place], [address], 12/12/2022 12:40:32 CBC w/ auto diff 2022 023 [facility] [employer] [facility], [address], [place], [address], 12/12/2022 12:40:32 TSH + free T4, serum 2022 023 [employer] [employer] [facility], [address], [place], [address], 12/07/2022 18:00:32 T3, free, serum or plasma 2022 023 [facility] [employer] [facility], [address], [place], [address], 12/07/2022 18:00:31 urinalysi s complete, reflex culture 2023 024 [facility] [employer] [facility], [address], [place], [address], 04/23/2023 05:30:12 CMP, serum or plasma 2023 024 [employer] [employer] [facility], [address], [place], [address], 04/23/2023 05:30:11 CBC w/ auto diff 2023 024 [facility] [employer] [facility], [address], [place], [address], 04/23/2023 05:30:13 TSH + free T4, serum 2023 024 [facility] [employer] [facility], [address], [place], [address], 04/23/2023 05:30:09 T3, free, serum or plasma 2023 024 [facility], [address], [place], [address], 04/23/2023 05:30:13 microalbu min/creat inine, mass ratio, urine 2023 024 [facility], [address], [place], [address], 04/23/2023 05:30:08 lipid panel, serum 2023 024 [facility], [address], [place], [address], 01/06/2024 03:32:50 Referral gynecolog ist referral [address] MD, [address] , [place], [address], 10/27/2022 08:11:54 gastroent erologist referral 2022 023 praful Muir MD, [address] [facility], [address], [address], 09/29/2022 18:12:26 gynecolog ist referral [address] MD, [address], [place], [address], 01/04/2023 08:13:47 gastroent erologist referral 2022 023 Brandon Muir MD, 3 [facility], [address], [place], [address], 12/07/2022 18:02:22 gynecolog ist referral [address] MD, [address] [facility], [place], [address], 05/04/2023 08:09:45 gastroent erologist referral 2023 024 praful Muir MD, [address] [facility], [address], [place], [address], 04/06/2023 17:41:41 gastroent erologist referral 2023 024 [facility] Jorge Crowe MD, [address] [facility], [place], [address], 05/11/2023 12:50:58 gynecolog ist referral 2023 024 praful [facility] [employer], [address] [facility], [facility] [address], [place], [address], 01/12/2024 08:18:07 gastroent erologist referral 2023 024 sneal Jorge Crowe MD, [address] [facility], [address], [place], [address], 12/15/2023 14:07:27 Procedures None recorded. Surgeries None recorded. Imaging MAMMO, screening , digital, bilateral 2022 023 [facility] [address] [facility], [place], [address], 09/29/2022 18:15:24 MAMMO, screening , digital, bilateral 2022 023 [email or web address] [facility], [address] [facility], [place], [address], 12/07/2022 18:02:22 MAMMO, screening , digital, bilateral 2023 024 [facility], [address] [facility], [place], [address], 04/06/2023 17:41:41 US, liver 2023 024 [facility], [address] [facility], [place], [address], 04/20/2023 08:19:45 XR, chest, 2 view 2023 024 [facility], [address] [facility], [place], [address], 07/20/2023 08:09:24 MAMMO, screening , digital, bilateral 2023 024 [email or web address] [facility], [address] [facility], [place], [address], 12/15/2023 14:07:27 electroca rdiogram 2023 024 [facility], [facility], [address], [place], [address], 12/15/2023 15:12:32 Medication Orders albuterol sulfate HFA 90 mcg/actua tion aerosol inhaler [address] [facility], [address] [place], [address], 12/03/2023 19:10:19 amlodipin e 5 mg tablet 2022 023 [facility], [address], [place], [address], 09/29/2022 18:08:43 amlodipin e 5 mg tablet [address] [facility], [address] [facility], [place], [address], 12/07/2022 17:58:18 Lunesta 2 mg tablet 2022 024 [facility], [address] [facility], [place], [address], 04/06/2023 17:24:24 albuterol sulfate HFA 90 mcg/actua tion aerosol inhaler [address] [facility], [address], [place], [address], 12/03/2023 19:10:19 albuterol sulfate HFA 90 mcg/actua tion aerosol inhaler 2023 024 [facility], [address] [facility], [place], [address], 12/03/2023 19:10:30 amlodipin e 5 mg tablet 2023 024 [facility], [address] [facility], [place], [address], 04/06/2023 17:33:55 Airsupra 90 mcg-80 mcg/actua tion HFA aerosol inhaler 2023 024 [facility], [address], [place], [address], 07/13/2023 18:37:19 dextroamp hetamine- amphetami ne 10 mg tablet [address] [facility], [address], [place], [address], 12/21/2023 06:10:49 Adderall XR 20 mg capsule,e xtended release 2023 [facility] Not available 03/13/2024 12:11:52 Airsupra 90 mcg-80 mcg/actua tion HFA aerosol inhaler 2023 [facility], [address] [place], [address], 12/15/2023 13:52:50 amlodipin e 5 mg tablet 2023 [facility], [address], [place], [address], 12/15/2023 13:52:49 losartan 25 mg tablet 2023 [facility], [address], [place], [address], 12/15/2023 13:52:48 Patient TargetsNo targets recorded. Patient Instructions Encounter Date Encounter Id Patient Instructions Last Modified By Organization Details Last Modified Time 07/13/2023 [id number] spirometry testing* MIR Not available 07/13/2023 19:30:30 Reason for Referral Microelectronics Technician Referral for Gy necologic examination Referring Physician: Tristin De Leon Internal [facility], Encounter Date: 09/29/2022 Drill Press Hand Referral for Screening for malignant neoplasm of colon Referring Physician: Tristin De Leon [facility], Encounter Date: 09/29/2022 Microelectronics Technician Referral for Gy necologic examination Referring Physician: Tristin De Leon [facility], Encounter Date: 12/07/2022 Drill Press Hand Referral for Screening for malignant neoplasm of colon Referring Physician: Hari Heller Medicine, Encounter Date: 12/07/2022 Microelectronics Technician Referral for Gy necologic examination Referring Physician: Tristin De Leon [facility], Encounter Date: 04/06/2023 Drill Press Hand Referral for Screening for malignant neoplasm of colon Referring Physician: Hari Heller Medicine, Encounter Date: 04/06/2023 Drill Press Hand Referral for Liver enzymes level above reference range Referring Physician: Tristin De Leon, Internal Medicine, Encounter Date: 04/06/2023 Microelectronics Technician Referral for Gy necologic examination Referring Physician: Tristin De Leon, Internal Medicine, Encounter Date: 12/15/2023 Drill Press Hand Referral for Screening for malignant neoplasm of colon Referring Physician: Tristin De Leon, Internal Medicine, Encounter Date: 12/15/2023 Results Created Date Observation Date Name Description Value Unit Range Abnormal Flag Note LastModifiedBy Organization Detail LastModifiedTime 11/20/1911/21/2022 LIPID PANEL , STAND BARRON cholesterol, total 158 mg/dL <200 normal Not Available [address], [address], 11/21/2022 13:05:37 11/20/19 23 11/21/2022 LIPID PANEL , [place] HDL cholesterol 77 mg/dL > or = 50 normal Not Available [address], [address], 11/21/2022 13:05:37 11/20/19 23 11/21/2022 LIPID PANEL , [place]AND [place] triglyceride s 51 mg/dL <150 normal Not Available [address], [address], 11/21/2022 13:05:37 11/20/19 23 11/21/2022 LIPID PANEL [...] Beth stark SS et al. MALDONADO. 2013; 310(0 0): 2061- 2068 (http ://ed ucati on.Qu Esa bhaktagis.tos. com/f aq/FA Q164) Not Available [address], [place], [address], 11/21/2022 13:05:37 11/20/19 23 11/21/2022 LIPID PANEL , STAND [place] chol/HDLC ratio 2.1 (calc ) <5.0 normal Not Available [address], [place], [address], 11/21/2022 13:05:37 11/20/19 23 11/21/2022 LIPID PANEL , [place] non HDL cholesterol 81 mg/dL _(frank c) <130 normal For patie nts with diabe gavin plus 1 major ASCVD risk facto r, treat ing to a non-H DL-C goal of <100 mg/dL (LDL- C of <70 mg/dL ) is consi dered a thera pejas c optio n. Not Available [address] , [place], [address], 11/21/2022 13:05:37 11/20/19 23 11/21/2022 ALBUM IN, RANDO M URINE W/CRE ATINI NE creatinine, random urine 235 mg/dL 20-275 normal Not Available [address] [address] [facility] [place], [address], 11/21/2022 13:05:38 11/20/19 23 11/21/2022 ALBUM IN, RANDO M URINE W/CRE ATINI NE albumin, urine 4.9 mg/dL see note: normal Refer ence Range : Refer ence Range Not estab lishe d Not Available [address] [address] [place], [address], 11/21/2022 13:05:38 11/20/19 23 11/21/2022 ALBUM IN, [...] a diagn ostic categ ory. Not Available [facility] [address] [address], [place], [address], 11/21/2022 13:05:38 11/20/19 23 11/21/2022 HIV 1/2 [...] matio n pleas e refer to http: //[facility] catdeepak stark.que stdia gnost ics.c om/fa q/FAQ 106 (This link is being provi ded for infor matio nal/ educa miriam l purpo ses only. ) The perfo rmanc e of this assay has not been clini uriah valid ated in patie nts less than 2 years old. Not Available [address], [address], 11/21/2022 13:05:39 11/20/19 23 11/21/2022 COMPR EHENS ETHAN METAB OLIC PANEL glucose 89 mg/dL 65-99 normal Fasti ng refer ence inter wilbur Not Available [facility] [address], [address], 11/21/2022 13:05:40 11/20/19 23 11/21/2022 COMPR EHENS ETHAN METAB OLIC PANEL urea nitrogen (BUN) 13 mg/dL 7-25 normal Not Available [address], [address], 11/21/2022 13:05:40 11/20/19 23 11/21/2022 COMPR EHENS ETHAN METAB OLIC PANEL creatinine 0.73 mg/dL 0.50-0 .99 normal Not Available [employer] [address], [address], 11/21/2022 13:05:40 11/20/19 23 11/21/2022 COMPR EHENS ETHAN METAB OLIC PANEL eGFR 103 mL/mi n/1.7 3m2 > or = 60 normal Not Available [address], [address], 11/21/2022 13:05:40 11/20/19 23 11/21/2022 COMPR EHENS ETHAN METAB OLIC PANEL BUN/creatini ne ratio SEE NOTE: (calc ) 6-22 Not Repor catherine: BUN and Creat inine are withi n refer ence range . Not Available [facility] [address], [address], 11/21/2022 13:05:40 11/20/19 23 11/21/2022 COMPR EHENS ETHAN METAB OLIC PANEL sodium 137 mmol/ L 135-14 6 normal Not Available [facility] [address] [place], [address], 11/21/2022 13:05:40 11/20/19 23 11/21/2022 COMPR EHENS ETHAN METAB OLIC PANEL potassium 4.0 mmol/ L 3.5-5. 3 normal Not Available [address], [address], 11/21/2022 13:05:40 11/20/19 23 11/21/2022 COMPR EHENS ETHAN METAB OLIC PANEL chloride 102 mmol/ L 98-110 normal Not Available [address], [address], 11/21/2022 13:05:40 11/20/19 23 11/21/2022 COMPR EHENS ETHAN METAB OLIC PANEL carbon dioxide 27 mmol/ L 20-32 normal Not Available [address], [address], 11/21/2022 13:05:40 11/20/19 23 11/21/2022 COMPR EHENS ETHAN METAB OLIC PANEL calcium 9.5 mg/dL 8.6-10 .2 normal Not Available [address], [address], 11/21/2022 13:05:40 11/20/19 23 11/21/2022 COMPR EHENS ETHAN METAB OLIC PANEL protein, total 7.3 g/dL 6.1-8. 1 normal Not Available [address], [address], 11/21/2022 13:05:40 11/20/19 23 11/21/2022 COMPR EHENS ETHAN METAB OLIC PANEL albumin 4.5 g/dL 3.6-5. 1 normal Not Available [address], [address], 11/21/2022 13:05:40 11/20/19 23 11/21/2022 COMPR EHENS ETHAN METAB OLIC PANEL globulin 2.8 g/dL_ (calc ) 1.9-3. 7 normal Not Available [address], [address], 11/21/2022 13:05:40 11/20/19 23 11/21/2022 COMPR EHENS ETHAN METAB OLIC PANEL albumin/glob ulin ratio 1.6 (calc ) 1.0-2. 5 normal Not Available [address], [address], 11/21/2022 13:05:40 11/20/19 23 11/21/2022 COMPR EHENS ETHAN METAB OLIC PANEL bilirubin, total 1.0 mg/dL 0.2-1. 2 normal Not Available [address], [address], 11/21/2022 13:05:40 11/20/19 23 11/21/2022 COMPR EHENS ETHAN METAB OLIC PANEL alkaline phosphatase 123 U/L 31-125 normal Not Available [address], [address], 11/21/2022 13:05:40 11/20/19 23 11/21/2022 COMPR EHENS ETHAN METAB OLIC PANEL AST 65 U/L 10-35 high Not Available [address], [address], 11/21/2022 13:05:40 11/20/19 23 11/21/2022 COMPR EHENS ETHAN METAB OLIC PANEL ALT 80 U/L 6-29 high Not Available [address], [address], 11/21/2022 13:05:40 11/20/19 23 11/21/2022 CBC (INCL UDES DIFF/ PLT) white blood cell count 4.0 thous and/u L 3.8-10 .8 normal Not Available [address], [address], 11/21/2022 13:05:41 11/20/19 23 11/21/2022 CBC (INCL UDES DIFF/ PLT) red blood cell count 4.10 josh on/uL 3.80-5 .10 normal Not Available [address], [address], 11/21/2022 13:05:41 11/20/19 23 11/21/2022 CBC (INCL UDES DIFF/ PLT) hemoglobin 14.5 g/dL 11.7-1 5.5 normal Not Available [address], [address], 11/21/2022 13:05:41 11/20/19 23 11/21/2022 CBC (INCL UDES DIFF/ PLT) hematocrit 40.2 % 35.0-4 5.0 normal Not Available [address], [address], 11/21/2022 13:05:41 11/20/19 23 11/21/2022 CBC (INCL UDES DIFF/ PLT) MCV 98.0 fL 80.0-1 00.0 normal Not Available [address], [address], 11/21/2022 13:05:41 11/20/19 23 11/21/2022 CBC (INCL UDES DIFF/ PLT) MCH 35.4 pg 27.0-3 3.0 high Not Available [employer] [address], [address], 11/21/2022 13:05:41 11/20/19 23 11/21/2022 CBC (INCL UDES DIFF/ PLT) MCHC 36.1 g/dL 32.0-3 6.0 high Not Available [employer] [address], [address], 11/21/2022 13:05:41 11/20/19 23 11/21/2022 CBC (INCL UDES DIFF/ PLT) RDW 12.0 % 11.0-1 5.0 normal Not Available [address], [address], 11/21/2022 13:05:41 11/20/19 23 11/21/2022 CBC (INCL UDES DIFF/ PLT) platelet count 238 thous and/u L 140-40 0 normal Not Available [address], [address], 11/21/2022 13:05:41 11/20/19 23 11/21/2022 CBC (INCL UDES DIFF/ PLT) MPV 11.8 fL 7.5-12 .5 normal Not Available [address], [address], 11/21/2022 13:05:41 11/20/19 23 11/21/2022 CBC (INCL UDES DIFF/ PLT) absolute neutrophils 2104 cells /uL 1500-7 800 normal Not Available [address], [address], 11/21/2022 13:05:41 11/20/19 23 11/21/2022 CBC (INCL UDES DIFF/ PLT) absolute lymphocytes 1356 cells /uL 850-39 00 normal Not Available [address], [address], 11/21/2022 13:05:41 11/20/19 23 11/21/2022 CBC (INCL UDES DIFF/ PLT) absolute monocytes 420 cells /uL 200-95 0 normal Not Available [address], [address], 11/21/2022 13:05:41 11/20/19 23 11/21/2022 CBC (INCL UDES DIFF/ PLT) absolute eosinophils 80 cells /uL 15-500 normal Not Available [address], [address], 11/21/2022 13:05:41 11/20/19 23 11/21/2022 CBC (INCL UDES DIFF/ PLT) absolute basophils 40 cells /uL 0-200 normal Not Available [address], [address], 11/21/2022 13:05:41 11/20/19 23 11/21/2022 CBC (INCL UDES DIFF/ PLT) neutrophils 52.6 % normal Not Available [address], [address], 11/21/2022 13:05:41 11/20/19 23 11/21/2022 CBC (INCL UDES DIFF/ PLT) lymphocytes 33.9 % normal Not Available [address], [address], 11/21/2022 13:05:41 11/20/19 23 11/21/2022 CBC (INCL UDES DIFF/ PLT) monocytes 10.5 % normal Not Available [address], [address], 11/21/2022 13:05:41 11/20/19 23 11/21/2022 CBC (INCL UDES DIFF/ PLT) eosinophils 2.0 % normal Not Available [address], [address], 11/21/2022 13:05:41 11/20/1911/21/2022 CBC (INCL UDES DIFF/ PLT) basophils 1.0 % normal Not Available [address], [address], 11/21/2022 13:05:41 12/11/19 23 12/12/2022 LIPID PANEL , STAND [place] cholesterol, total 157 mg/dL <200 normal Not Available [address] [address], [place], [address], 12/12/2022 12:40:29 12/11/1912/12/2022 LIPID PANEL , STAND [place] HDL cholesterol 82 mg/dL > or = 50 normal Not Available [facility] [address] [place], [address], 12/12/2022 12:40:29 12/11/1912/12/2022 LIPID PANEL , STAND BARRON triglyceride s 44 mg/dL <150 normal Not Available [facility] [address] [place], [address], 12/12/2022 12:40:29 12/11/1912/12/2022 LIPID PANEL , STAND [...] com/f aq/FA Q164) Not Available [facility] [address] [address], [place], [address], 12/12/2022 12:40:29 12/11/1912/12/2022 LIPID PANEL , STAND [place] chol/HDLC ratio 1.9 (calc ) <5.0 normal Not Available [facility] [address] [place], [address], 12/12/2022 12:40:29 12/11/1912/12/2022 LIPID PANEL , [place] non HDL cholesterol 75 mg/dL _(frank c) <130 normal For patie nts with diabe gavin plus 1 major ASCVD risk facto r, treat ing to a non-H DL-C goal of <100 mg/dL (LDL- C of <70 mg/dL ) is consi keesha brothers pejas cahrles optio n. Not Available [address] [address] [place], [address], 12/12/2022 12:40:29 12/11/1912/12/2022 ALBUM IN, RANDO M URINE W/CRE ATINI NE creatinine, random urine 207 mg/dL 20-275 normal Not Available [address] [address] [address], [place], [address], 12/12/2022 12:40:30 12/11/1912/12/2022 ALBUM IN, RANDO M URINE W/CRE ATINI NE albumin, urine 3.7 mg/dL see note: normal Refer ence Range : Refer ence Range Not estab lishe d Not Available [address] [address] [address], [place], [address], 12/12/2022 12:40:30 12/11/1912/12/2022 ALBUM IN, RANDO M [...] a diagn ostic categ ory. Not Available [address] [address] [place], [address], 12/12/2022 12:40:30 12/11/1912/12/2022 HIV 1/2 ANTIG EN/AN [...] matio n pleas e refer to http: //[facility] teo balbuena stdia gnost ics.c om/fa q/FAQ 106 (This link is being provi ded for infor matio nal/ educa miriam l purpo ses only. ) The perfo rmanc e of this assay has not been clini uriah valid ated in patie nts less than 2 years old. Not Available [facility] [address] [place], [address], 12/12/2022 12:40:31 12/11/1912/12/2022 COMPR EHENS ETHAN METAB OLIC PANEL glucose 83 mg/dL 65-99 normal Fasti ng refer ence inter wilbur Not Available [employer] [facility] [address] [place], [address], 12/12/2022 12:40:31 12/11/1912/12/2022 COMPR EHENS ETHAN METAB OLIC PANEL urea nitrogen (BUN) 11 mg/dL 7-25 normal Not Available [address] [address] [place], [address], 12/12/2022 12:40:31 12/11/1912/12/2022 COMPR EHENS ETHAN METAB OLIC PANEL creatinine 0.68 mg/dL 0.50-0 .99 normal Not Available [address] [address] [place], [address], 12/12/2022 12:40:31 12/11/1912/12/2022 COMPR EHENS ETHAN METAB OLIC PANEL eGFR 109 mL/mi n/1.7 3m2 > or = 60 normal Not Available [address], [address], 12/12/2022 12:40:31 12/11/1912/12/2022 COMPR EHENS ETHAN METAB OLIC PANEL BUN/creatini ne ratio SEE NOTE: (calc ) 6-22 Not Repor catherine: BUN and Creat inine are withi n refer ence range . Not Available [address], [address], 12/12/2022 12:40:31 12/11/1912/12/2022 COMPR EHENS ETHAN METAB OLIC PANEL sodium 138 mmol/ L 135-14 6 normal Not Available [address] [address] [place], [address], 12/12/2022 12:40:31 12/11/1912/12/2022 COMPR EHENS ETHAN METAB OLIC PANEL potassium 3.9 mmol/ L 3.5-5. 3 normal Not Available [address], [address], 12/12/2022 12:40:31 12/11/1912/12/2022 COMPR EHENS ETHAN METAB OLIC PANEL chloride 103 mmol/ L 98-110 normal Not Available [address] [place], [address], 12/12/2022 12:40:31 12/11/1912/12/2022 COMPR EHENS ETHAN METAB OLIC PANEL carbon dioxide 26 mmol/ L 20-32 normal Not Available [address], [address], 12/12/2022 12:40:31 12/11/1912/12/2022 COMPR EHENS ETHAN METAB OLIC PANEL calcium 9.1 mg/dL 8.6-10 .2 normal Not Available [address], [address], 12/12/2022 12:40:31 12/11/1912/12/2022 COMPR EHENS ETHAN METAB OLIC PANEL protein, total 7.0 g/dL 6.1-8. 1 normal Not Available [address], [address], 12/12/2022 12:40:31 12/11/1912/12/2022 COMPR EHENS ETHAN METAB OLIC PANEL albumin 4.3 g/dL 3.6-5. 1 normal Not Available [address], [address], 12/12/2022 12:40:31 12/11/1912/12/2022 COMPR EHENS ETHAN METAB OLIC PANEL globulin 2.7 g/dL_ (calc ) 1.9-3. 7 normal Not Available [address], [address], 12/12/2022 12:40:31 12/11/1912/12/2022 COMPR EHENS ETHAN METAB OLIC PANEL albumin/glob ulin ratio 1.6 (calc ) 1.0-2. 5 normal Not Available [address], [address], 12/12/2022 12:40:31 12/11/1912/12/2022 COMPR EHENS ETHAN METAB OLIC PANEL bilirubin, total 1.1 mg/dL 0.2-1. 2 normal Not Available [address], [address], 12/12/2022 12:40:31 12/11/1912/12/2022 COMPR EHENS ETHAN METAB OLIC PANEL alkaline phosphatase 136 U/L 31-125 high Not Available [facility] [address] [address] [place], [address], 12/12/2022 12:40:31 12/11/1912/12/2022 COMPR EHENS ETHAN METAB OLIC PANEL AST 66 U/L 10-35 high Not Available [address], [address], 12/12/2022 12:40:31 12/11/1912/12/2022 COMPR EHENS ETHAN METAB OLIC PANEL ALT 92 U/L 6-29 high Not Available [address], [address], 12/12/2022 12:40:31 12/11/1912/12/2022 CBC (INCL UDES DIFF/ PLT) white blood cell count 4.0 thous and/u L 3.8-10 .8 normal Not Available [address], [address], 12/12/2022 12:40:32 12/11/1912/12/2022 CBC (INCL UDES DIFF/ PLT) red blood cell count 4.15 josh on/uL 3.80-5 .10 normal Not Available [address], [address], 12/12/2022 12:40:32 12/11/1912/12/2022 CBC (INCL UDES DIFF/ PLT) hemoglobin 13.5 g/dL 11.7-1 5.5 normal Not Available [address], [address], 12/12/2022 12:40:32 12/11/1912/12/2022 CBC (INCL UDES DIFF/ PLT) hematocrit 40.6 % 35.0-4 5.0 normal Not Available [address], [address], 12/12/2022 12:40:32 12/11/1912/12/2022 CBC (INCL UDES DIFF/ PLT) MCV 97.8 fL 80.0-1 00.0 normal Not Available [address], [address], 12/12/2022 12:40:32 12/11/1912/12/2022 CBC (INCL UDES DIFF/ PLT) MCH 32.5 pg 27.0-3 3.0 normal Not Available [address], [address], 12/12/2022 12:40:32 12/11/1912/12/2022 CBC (INCL UDES DIFF/ PLT) MCHC 33.3 g/dL 32.0-3 6.0 normal Not Available [address], [address], 12/12/2022 12:40:32 12/11/1912/12/2022 CBC (INCL UDES DIFF/ PLT) RDW 12.2 % 11.0-1 5.0 normal Not Available [address], [address], 12/12/2022 12:40:32 12/11/1912/12/2022 CBC (INCL UDES DIFF/ PLT) platelet count 199 thous and/u L 140-40 0 normal Not Available [address], [address], 12/12/2022 12:40:32 12/11/1912/12/2022 CBC (INCL UDES DIFF/ PLT) MPV 12.0 fL 7.5-12 .5 normal Not Available [address], [address], 12/12/2022 12:40:32 12/11/1912/12/2022 CBC (INCL UDES DIFF/ PLT) absolute neutrophils 2024 cells /uL 1500-7 800 normal Not Available [address], [address], 12/12/2022 12:40:32 12/11/1912/12/2022 CBC (INCL UDES DIFF/ PLT) absolute lymphocytes 1432 cells /uL 850-39 00 normal Not Available [address], [address], 12/12/2022 12:40:32 12/11/1912/12/2022 CBC (INCL UDES DIFF/ PLT) absolute monocytes 412 cells /uL 200-95 0 normal Not Available [address], [address], 12/12/2022 12:40:32 12/11/1912/12/2022 CBC (INCL UDES DIFF/ PLT) absolute eosinophils 92 cells /uL 15-500 normal Not Available [address], [address], 12/12/2022 12:40:32 12/11/1912/12/2022 CBC (INCL UDES DIFF/ PLT) absolute basophils 40 cells /uL 0-200 normal Not Available [address], [address], 12/12/2022 12:40:32 12/11/1912/12/2022 CBC (INCL UDES DIFF/ PLT) neutrophils 50.6 % normal Not Available [address], [address], 12/12/2022 12:40:32 12/11/1912/12/2022 CBC (INCL UDES DIFF/ PLT) lymphocytes 35.8 % normal Not Available [address], [address], 12/12/2022 12:40:32 12/11/1912/12/2022 CBC (INCL UDES DIFF/ PLT) monocytes 10.3 % normal Not Available [address], [address], 12/12/2022 12:40:32 12/11/1912/12/2022 CBC (INCL UDES DIFF/ PLT) eosinophils 2.3 % normal Not Available [address], [address], 12/12/2022 12:40:32 12/11/1912/12/2022 CBC (INCL UDES DIFF/ PLT) basophils 1.0 % normal Not Available [address], [address], 12/12/2022 12:40:32 04/20/19 24 04/23/2023 ALBUM IN, RANDO M URINE W/CRE ATINI NE creatinine, random urine 384 mg/dL 20-275 high Not Available [address], [address], 04/23/2023 05:30:08 04/20/19 24 04/23/2023 ALBUM IN, RANDO M URINE W/CRE ATINI NE albumin, urine 10.6 mg/dL see note: normal Refer ence Range : Refer ence Range Not estab lishe d Not Available [address], [address], 04/23/2023 05:30:08 04/20/19 24 04/23/2023 ALBUM IN, [...] a diagn ostic categ ory. Not Available [address], [address], 04/23/2023 05:30:08 04/20/19 24 04/23/2023 TSH+F REE T4 TSH 1.27 mIU/L normal Refer ence Range > or = 20 Years 0.40- 4.50 Pregn dann Range s First trime ster 0.26- 2.66 Secon d trime ster 0.55- 2.73 Third trime ster 0.43- 2.91 Not Available [address], [address], 04/23/2023 05:30:09 04/20/19 24 04/23/2023 TSH+F REE T4 T4, free 1.1 NG/dL 0.8-1. 8 normal Not Available [address], [address], 04/23/2023 05:30:09 04/20/19 24 04/23/2023 COMPR EHENS ETHAN METAB OLIC PANEL glucose 65 mg/dL 65-99 normal Fasti ng refer ence inter wilbur Not Available [address], [address], 04/23/2023 05:30:11 04/20/19 24 04/23/2023 COMPR EHENS ETHAN METAB OLIC PANEL urea nitrogen (BUN) 14 mg/dL 7-25 normal Not Available [address], [address], 04/23/2023 05:30:11 04/20/19 24 04/23/2023 COMPR EHENS ETHAN METAB OLIC PANEL creatinine 0.77 mg/dL 0.50-0 .99 normal Not Available [address], [address], 04/23/2023 05:30:11 04/20/19 24 04/23/2023 COMPR EHENS ETHAN METAB OLIC PANEL eGFR 96 mL/mi n/1.7 3m2 > or = 60 normal Not Available [address], [address], 04/23/2023 05:30:11 04/20/19 24 04/23/2023 COMPR EHENS ETHAN METAB OLIC PANEL BUN/creatini ne ratio SEE NOTE: (calc ) 6-22 Not Repor catherine: BUN and Creat inine are withi n refer ence range . Not Available [address], [address], 04/23/2023 05:30:11 04/20/19 24 04/23/2023 COMPR EHENS ETHAN METAB OLIC PANEL sodium 141 mmol/ L 135-14 6 normal Not Available [address], [address], 04/23/2023 05:30:11 04/20/19 24 04/23/2023 COMPR EHENS ETHAN METAB OLIC PANEL potassium 3.8 mmol/ L 3.5-5. 3 normal Not Available [address], [address], 04/23/2023 05:30:11 04/20/19 24 04/23/2023 COMPR EHENS ETHAN METAB OLIC PANEL chloride 103 mmol/ L 98-110 normal Not Available [address], [place], [address], 04/23/2023 05:30:11 04/20/19 24 04/23/2023 COMPR EHENS ETHAN METAB OLIC PANEL carbon dioxide 30 mmol/ L 20-32 normal Not Available [facility] [address], [address], 04/23/2023 05:30:11 04/20/19 24 04/23/2023 COMPR EHENS ETHAN METAB OLIC PANEL calcium 9.6 mg/dL 8.6-10 .2 normal Not Available [facility] [address], [address], 04/23/2023 05:30:11 04/20/19 24 04/23/2023 COMPR EHENS ETHAN METAB OLIC PANEL protein, total 7.0 g/dL 6.1-8. 1 normal Not Available [address], [address], 04/23/2023 05:30:11 04/20/19 24 04/23/2023 COMPR EHENS ETHAN METAB OLIC PANEL albumin 4.5 g/dL 3.6-5. 1 normal Not Available [address], [address], 04/23/2023 05:30:11 04/20/19 24 04/23/2023 COMPR EHENS ETHAN METAB OLIC PANEL globulin 2.5 g/dL_ (calc ) 1.9-3. 7 normal Not Available [facility] [address], [address], 04/23/2023 05:30:11 04/20/19 24 04/23/2023 COMPR EHENS ETHAN METAB OLIC PANEL albumin/glob ulin ratio 1.8 (calc ) 1.0-2. 5 normal Not Available [facility] [address], [address], 04/23/2023 05:30:11 04/20/19 24 04/23/2023 COMPR EHENS ETHAN METAB OLIC PANEL bilirubin, total 1.0 mg/dL 0.2-1. 2 normal Not Available [address], [address], 04/23/2023 05:30:11 04/20/19 24 04/23/2023 COMPR EHENS ETHAN METAB OLIC PANEL alkaline phosphatase 122 U/L 31-125 normal Not Available [address], [address], 04/23/2023 05:30:11 04/20/19 24 04/23/2023 COMPR EHENS ETHAN METAB OLIC PANEL AST 78 U/L 10-35 high Not Available [address], [address], 04/23/2023 05:30:11 04/20/19 24 04/23/2023 COMPR EHENS ETHAN METAB OLIC PANEL ALT 93 U/L 6-29 high Not Available [address], [address], 04/23/2023 05:30:11 04/20/19 24 04/23/2023 URINA LYSIS , COMPL ETE W/REF YESSI TO CULTU RE color DARK YELLOW yellow normal Not Available [address], [address], 04/23/2023 05:30:12 04/20/19 24 04/23/2023 URINA LYSIS , COMPL ETE W/REF YESSI TO CULTU RE appearance CLOUDY clear abnormal Not Available [address], [address], 04/23/2023 05:30:12 04/20/19 24 04/23/2023 URINA LYSIS , COMPL ETE W/REF YESSI TO CULTU RE specific gravity 1.021 1.001- 1.035 normal Not Available [address], [address], 04/23/2023 05:30:12 04/20/19 24 04/23/2023 URINA LYSIS , COMPL ETE W/REF YESSI TO CULTU RE pH 6.0 5.0-8. 0 normal Not Available [address], [address], 04/23/2023 05:30:12 04/20/19 24 04/23/2023 URINA LYSIS , COMPL ETE W/REF YESSI TO CULTU RE glucose NEGATI VE negati ve normal Not Available [address], [address], 04/23/2023 05:30:12 04/20/19 24 04/23/2023 URINA LYSIS , COMPL ETE W/REF YESSI TO CULTU RE bilirubin NEGATI VE negati ve normal Not Available [address], [address], 04/23/2023 05:30:12 04/20/19 24 04/23/2023 URINA LYSIS , COMPL ETE W/REF YESSI TO CULTU RE ketones TRACE negati ve abnormal Not Available [address], [address], 04/23/2023 05:30:12 04/20/19 24 04/23/2023 URINA LYSIS , COMPL ETE W/REF YESSI TO CULTU RE occult blood 3+ negati ve abnormal Not Available [facility] [address] [place], [address], 04/23/2023 05:30:12 04/20/19 24 04/23/2023 URINA LYSIS , COMPL ETE W/REF YESSI TO CULTU RE protein 1+ negati ve abnormal Not Available [facility] [address], [address], 04/23/2023 05:30:12 04/20/19 24 04/23/2023 URINA LYSIS , COMPL ETE W/REF YESSI TO CULTU RE nitrite NEGATI VE negati ve normal Not Available [address], [address], 04/23/2023 05:30:12 04/20/19 24 04/23/2023 URINA LYSIS , COMPL ETE W/REF YESSI TO CULTU RE leukocyte esterase TRACE negati ve abnormal Not Available [address], [address], 04/23/2023 05:30:12 04/20/19 24 04/23/2023 URINA LYSIS , COMPL ETE W/REF YESSI TO CULTU RE WBC 0-5 /hpf < or = 5 normal Not Available [address], [address], 04/23/2023 05:30:12 04/20/19 24 04/23/2023 URINA LYSIS , COMPL ETE W/REF YESSI TO CULTU RE RBC > OR = 60 /hpf < or = 2 abnormal Not Available [address], [address], 04/23/2023 05:30:12 04/20/19 24 04/23/2023 URINA LYSIS , COMPL ETE W/REF YESSI TO CULTU RE squamous epithelial cells 0-5 /hpf < or = 5 Not Available [address], [address], 04/23/2023 05:30:12 04/20/19 24 04/23/2023 URINA LYSIS , COMPL ETE W/REF YESSI TO CULTU RE bacteria FEW /hpf none seen abnormal Not Available [address], [address], 04/23/2023 05:30:12 04/20/19 24 04/23/2023 URINA LYSIS , COMPL ETE W/REF YESSI TO CULTU RE hyaline cast NONE SEEN /lpf none seen normal Not Available [facility] [address] [address] [place], [address], 04/23/2023 05:30:12 04/20/19 24 04/23/2023 URINA LYSIS , COMPL ETE W/REF YESSI TO CULTU RE reflexive urine culture CULTU RE INDIC ATED - RESUL TS TO FOLLO W Not Available [facility] [address] [place], [address], 04/23/2023 05:30:12 04/20/19 24 04/23/2023 URINA LYSIS , COMPL ETE W/REF YESSI TO CULTU RE culture, urine, routine SEE NOTE CULTU RE, URINE , ROUTI NE Micro Numbe r: [id number] Test Statu s: Final Speci men [...] Cultu re Trans port Tube. Not Available [address], [address], 04/23/2023 05:30:12 04/20/19 24 04/23/2023 CBC (INCL UDES DIFF/ PLT) (REFL ) white blood cell count 3.3 thous and/u L 3.8-10 .8 low Not Available [facility] [address] [address] [place], [address], 04/23/2023 05:30:13 04/20/19 24 04/23/2023 CBC (INCL UDES DIFF/ PLT) (REFL ) red blood cell count 4.12 josh on/uL 3.80-5 .10 normal Not Available [facility] [address] [place], [address], 04/23/2023 05:30:13 04/20/19 24 04/23/2023 CBC (INCL UDES DIFF/ PLT) (REFL ) hemoglobin 13.1 g/dL 11.7-1 5.5 normal Not Available [address], [address], 04/23/2023 05:30:13 04/20/19 24 04/23/2023 CBC (INCL UDES DIFF/ PLT) (REFL ) hematocrit 39.4 % 35.0-4 5.0 normal Not Available [address], [address], 04/23/2023 05:30:13 04/20/19 24 04/23/2023 CBC (INCL UDES DIFF/ PLT) (REFL ) MCV 95.6 fL 80.0-1 00.0 normal Not Available [address], [address], 04/23/2023 05:30:13 04/20/19 24 04/23/2023 CBC (INCL UDES DIFF/ PLT) (REFL ) MCH 31.8 pg 27.0-3 3.0 normal Not Available [address], [address], 04/23/2023 05:30:13 04/20/19 24 04/23/2023 CBC (INCL UDES DIFF/ PLT) (REFL ) MCHC 33.2 g/dL 32.0-3 6.0 normal Not Available [address], [address], 04/23/2023 05:30:13 04/20/19 24 04/23/2023 CBC (INCL UDES DIFF/ PLT) (REFL ) RDW 12.4 % 11.0-1 5.0 normal Not Available [address], [address], 04/23/2023 05:30:13 04/20/19 24 04/23/2023 CBC (INCL UDES DIFF/ PLT) (REFL ) platelet count 203 thous and/u L 140-40 0 normal Not Available [address], [address], 04/23/2023 05:30:13 04/20/19 24 04/23/2023 CBC (INCL UDES DIFF/ PLT) (REFL ) MPV 11.3 fL 7.5-12 .5 normal Not Available [address], [address], 04/23/2023 05:30:13 04/20/19 24 04/23/2023 CBC (INCL UDES DIFF/ PLT) (REFL ) absolute neutrophils 1607 cells /uL 1500-7 800 normal Not Available [address], [address], 04/23/2023 05:30:13 04/20/19 24 04/23/2023 CBC (INCL UDES DIFF/ PLT) (REFL ) absolute lymphocytes 1208 cells /uL 850-39 00 normal Not Available [address], [address], 04/23/2023 05:30:13 04/20/19 24 04/23/2023 CBC (INCL UDES DIFF/ PLT) (REFL ) absolute monocytes 356 cells /uL 200-95 0 normal Not Available [address], [address], 04/23/2023 05:30:13 04/20/19 24 04/23/2023 CBC (INCL UDES DIFF/ PLT) (REFL ) absolute eosinophils 99 cells /uL 15-500 normal Not Available [address], [address], 04/23/2023 05:30:13 04/20/19 24 04/23/2023 CBC (INCL UDES DIFF/ PLT) (REFL ) absolute basophils 30 cells /uL 0-200 normal Not Available [address], [address], 04/23/2023 05:30:13 04/20/19 24 04/23/2023 CBC (INCL UDES DIFF/ PLT) (REFL ) neutrophils 48.7 % normal Not Available [address], [address], 04/23/2023 05:30:13 04/20/19 24 04/23/2023 CBC (INCL UDES DIFF/ PLT) (REFL ) lymphocytes 36.6 % normal Not Available [address], [address], 04/23/2023 05:30:13 04/20/19 24 04/23/2023 CBC (INCL UDES DIFF/ PLT) (REFL ) monocytes 10.8 % normal Not Available [address], [address], 04/23/2023 05:30:13 04/20/19 24 04/23/2023 CBC (INCL UDES DIFF/ PLT) (REFL ) eosinophils 3.0 % normal Not Available [address], [address], 04/23/2023 05:30:13 04/20/19 24 04/23/2023 CBC (INCL UDES DIFF/ PLT) (REFL ) basophils 0.9 % normal Not Available [address], [address], 04/23/2023 05:30:13 04/20/19 24 04/23/2023 T3, FREE T3, free 3.5 pg/mL 2.3-4. 2 normal Not Available [address], [address], 04/23/2023 05:30:13 04/27/19 24 04/28/2023 HCG, TOTAL [...] appro suzanne by the FDA or the [facility] er of the assay . Not Available [facility] [address] [address] [place], [address], 04/28/2023 04:15:55 07/19/1907/19/2023 qamar metry testi ng* Spirometry [facility] [address], [place], [address], 07/13/2023 18:33:42 01/05/2001/06/2024 LIPID PANEL , STAND BARRON cholesterol, total 167 mg/dL <200 normal Not Available [facility] [address] [address] [place], [address], 01/06/2024 03:32:50 01/05/20 24 01/06/2024 LIPID PANEL , STAND BARRON HDL cholesterol 84 mg/dL > or = 50 normal Not Available [facility] [address] [address] [place], [address], 01/06/2024 03:32:50 01/05/20 24 01/06/2024 LIPID PANEL , STAND BARRON triglyceride s 53 mg/dL <150 normal Not Available [facility] [address] [address] [place], [address], 01/06/2024 03:32:50 01/05/20 24 01/06/2024 LIPID PANEL , STAND BARRON LDL-choleste rol 70 mg/dL _(frank c) normal Refer ence range : <100 Tiburcio able range <100 mg/dL for prima ry preve ntion ; <70 mg/dL for patie nts with CHD or diabe tic patie nts with > or = 2 CHD risk facto rs. LDL-C is now calcu lated using the [facility] kins lino stark, which is a valid ated novel jim espinoza accur acy than the Fried anat equat ion in the estim ation of LDL-C . Beth stark SS et al. MALDONADO. 2013; 310(1 9): 2061- 2068 (http ://ed ucati on.Qu estDi jacinta tics. com/f aq/FA Q164) Not Available [facility] [address] [address] [place], [address], 01/06/2024 03:32:50 01/05/2001/06/2024 LIPID PANEL , STAND BARRON chol/HDLC ratio 2.0 (calc ) <5.0 normal Not Available [facility] [address] [address] [place], [address], 01/06/2024 03:32:50 01/05/20 24 01/06/2024 LIPID PANEL , STAND [place]ARR[place] non HDL cholesterol 83 mg/dL _(frank c) <130 normal For patie nts with diabe gavin plus 1 major ASCVD risk facto r, treat ing to a non-H DL-C goal of <100 mg/dL (LDL- C of <70 mg/dL ) is consi dered a thera pejas c optio n. Not Available [facility] [address] [address] [place], [address], 01/06/2024 03:32:50 05/21/19 CT ABD+p el wwo con [facility] [address] [place] [address] Orderi ng Provid er: TRISTIN DE LEON [...] By: Dewayne Gay MD, 11:40 PM [email or web address] [facility]? S Hospital [address] [facility], [place], [address], 07/13/2023 18:41:07 05/27/19 24 US, abdom en, limit ed [facility] [place] [address] Orderi ng Provid er: TRISTIN DE LEON [...] By: Wilber Easley MD, 05/27/19 1:[address]? [address], [place], [address], 07/13/2023 18:41:07 07/13/19 qamar metry testi ng* No observ ation record ed. [address], [facility] [address], [place], [address], 12/15/2023 13:53:23 12/15/19 24 12/15/2023 elect rocar diogr am No observ ation record ed. [email or web address], [facility] [address], [place], [address], 12/15/2023 15:12:32 12/18/1912/15/2023 elect rocar diogr am No observ ation record ed. [email or web address] [facility], [facility] [address], [place], [address], 12/19/2023 11:05:43 03/03/19 25 03/02/2024 XR, chest , 2 view No observ ation record ed. [facility] [address], [place], [address], 03/03/2024 20:44:14 03/13/19 25 03/04/2024 US, echoc ardio gram No observ ation record ed. [email or web address] Not Available 2024 12:35:53 Result Notes None recorded. Problems Name Problem SNOMED Code Status Onset Date Resolution Date Notes Provider Name and Address Organization Details Recorded Time Asthma 403638721 Active 2017 [facility] 18:12:06 Essential hypertension 97723053 Active 2017 Gudelia Dietz [facility] 8 18:12:48 History of varicose veins 978636293 Active 2017 Gudelia Dietz [facility] 8 18:13:14 Attention deficit hyperactivity disorder, predominantly inattentive type 18878714 Active 2022 Tristin De Leon MD [address], [place], [address], [facility] 3 17:05:21 COVID-19 350830393 Active 2022 Tristin De Leon MD [address], [place], [address], [facility] 3 21:13:01 Obsessive-comp ulsive disorder 325680573 Active 2022 Tristin De Leon MD [address], [place], [address], [facility] 3 17:57:42 Chronic insomnia 893303485 Active 2022 Tristin De Leon MD [address], [place], [address], [facility] 3 17:43:24 Loss of hair 018469482 Active 2022 Tristin De Leon MD [address], [place], [address], [facility] 17:51:51 Liver enzymes level above reference range 419062756 Active 2022 Tristin De Leon MD [address], [place], [address], [facility] 17:20:48 Problem Notes None recorded. Procedures Surgical History Date Name Laterality Status Provider Name and Address Organization Details Recorded Time 09/22/19 14 placement of stent in coronary artery completed Tristin De Leon MD [address], [place], [address], [facility] 07/27/2020 20:14:25 Appendectomy completed [facility] 11/10/2017 09:41:36 Cholecystectomy completed [facility] 11/10/2017 09:41:52 Breast Surgery completed [facility] 11/10/2017 09:42:17 Breast Surgery completed [facility] 11/10/2017 09:42:39 Imaging Results Imaging Date Name Status LastModified by Organization Details LastModified Time 05/21/2023 CT ABD+pel wwo con completed [address]? [address], [address], 07/13/2023 18:41:07 05/27/2023 US, abdomen, limited completed [address]? [address], [address], 07/13/2023 18:41:07 07/13/2023 spirometry testing* completed [email or web address] Bozena arora [facility], [facility] [address], [place], [address], 12/15/2023 13:53:23 12/15/2023 electrocardiogram completed [email or web address] Dennis lópez [facility], [facility] [address], [place], [address], 12/15/2023 15:12:32 12/15/2023 electrocardiogram completed [facility] [address], [place], [address], 12/19/2023 11:05:43 03/02/2024 XR, chest, 2 view completed [facility] [address], [place], [address], 03/03/2024 20:44:14 03/04/2024 US, echocardiogram completed [email or web address] Inform ation not available 03/13/2024 12:35:53 Procedure Notes None recorded. Medical Equipment None [...] day by oral route in the morning. 03/13 completed coronary dissecti on Not Available Not Available Not Available pantopraz ole 40 mg tablet,de layed [...] cm 72 /min 16 /min 97.7 [degF] 92184.5 2 g 123 mm[Hg] 76 mm[Hg] Pennie Rosas [facility] 3 17:13:18 Date Recorded Body mass index (BMI) Provider Name and Address Organization Details Last Updated DateTime 09/29/2022 20.8 kg/m2 Tristin De Leon MD [address], [place], [address], [facility] 09/29/2022 17:55:17 Date Recorded Body height Heart rate Respiratory rate Body temperature Body mass index (BMI) Body weight Systolic blood pressure Diastolic blood pressure Provider Name and Address Organization Details Last Updated DateTime 3 175.26 cm 71 /min 16 /min 98.2 [degF] 20.8 kg/m2 03118.5 2 g 135 mm[Hg] 71 mm[Hg] Angle Mcmillan [facility] 3 17:05:47 Date Recorded Body height Heart rate Respiratory rate Body temperature Body mass index (BMI) Body weight Systolic blood pressure Diastolic blood pressure Provider Name and Address Organization Details Last Updated DateTime 4 175.26 cm 72 /min 16 /min 97.6 [degF] 20.5 kg/m2 37832.3 4 g 131 mm[Hg] 65 mm[Hg] Pennie Rosas [facility] 4 16:30:09 Date Recorded Body height Heart rate Respiratory rate Body temperature Body mass index (BMI) Body weight Systolic blood pressure Diastolic blood pressure Provider Name and Address Organization Details Last Updated DateTime 4 175.26 cm 65 /min 16 /min 97.5 [degF] 19.8 kg/m2 13057.3 8 g 132 mm[Hg] 86 mm[Hg] Pennie Rosas [facility] 4 17:42:04 Date Recorded Body height Body mass index (BMI) Body weight Body temperature Respiratory rate Heart rate Provider Name and Address Organization Details Last Updated DateTime 4 175.26 cm 20.2 kg/m2 06189.1 5 g 97.7 [degF] 16 /min 80 /min Yi Hamptonaly [facility] 4 12:50:34 Date Recorded Systolic blood pressure Diastolic blood pressure Provider Name and Address Organization Details Last Updated DateTime 12/15/2023 141 mm[Hg] 79 mm[Hg] Tristin De Leon MD [address] [facility] [address], [place], [address], [facility] 12/15/2023 13:43:18 Social History Question Answer Notes LastModified by Organizat ion Details LastModified Time Tobacco Smoking Status Never [facility] 11/10/2017 09:43:55 What Is Your Level Of Alcohol Consumption? Occasional [email or web address] Information not available 11/10/2017 What Is Your Level Of Caffeine Consumption? Moderate 1/2 Soda Per Day [email or web address] Information not available 04/06/2023 How Much Tobacco Do You Chew? None Information not available 07/27/2020 Which Illicit Or Recreational Drugs Have You Used? 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 07/13/2023 [email or web address] Information not available 07/13/2023 Sex: Unknown Functional Status None recorded. Mental Status None recorded. Family History Relationship Description Onset Age of this Age Resolved Age Notes LastModified by Organization Details LastModified Time Mother Malignant neoplasm of skin Methas tatic michael monique [email or web address] Not available 11/10/2017 09:44:33 Father Malignant [...] 30 mcg/0.3 mL dose 06/16/2020 [facility] 19:13:16 COVID-19, mRNA, LNP-S, PF, 30 mcg/0.3 mL dose 07/07/2020 completed Mihaela Maddox [facility] 07/27/2020 19:13:25 Past Encounters Encounter ID Performer Location Encounter Start Date Encounter Closed Date Diagnosis/Indication Diagnosis SNOMED-CT Code Diagnosis ICD10 Code Diagnosis Note [id number] Tristin De Leon MD [facility], [facility] [address] [place] [address] 11/15/2017 16:11:25 11/15/2017 19:20:36 Benign essential hypertension 5665926 I10 -- Changed from ramipril, metoprolol --> to nifedipine 30 mg daily ( by cardiologi st Dr. Matt Armstrong III ) Fatigue 06096976 R53.83 Increased liver function [id number] R94.5 K75.9 R79.9 Hyperlipid emia screening [id number] Z13.220 Immunization refused [id number] Z28.20 -- will issue Tdap & Flu incase pt changes her mind. Screening for malignant neoplasm of breast [id number] Z12.31 Screening for malignant neoplasm of cervix [id number] Z12.4 [id number] Tristin De Leon MD [employer] [facility], [facility] [address] [facility] [address] [place] [address] 12/13/2017 15:10:01 12/13/2017 17:00:21 Adult health examination [id number] Z00.00 Fatigue 13952627 R53.83 Benign ess ential hypertension 8296781 I10 -- Changed from ramipril, metoprolol --> to nifedipine 30 mg daily ( by cardiologi st Dr. Matt Armstrong III ) Increased liver function 25439360 R94.5 K75.9 R79.9 -- follows w/ Dr Hager Immunization refused 275 572377 Z28.20 -- will issue Tdap & Flu incase pt changes her mind. Screening for malignant neoplasm of breast 728414595 Z12.31 Screening for malignant neoplasm of cervix 329112691 Z12.4 [id number] Tristin De Leon MD [facility] [address] [facility] [address] [place] [address] 07/27/2020 18:13:24 07/27/2020 20:31:41 Fatigue 77362596 R53.83 -- Changed from ramipril, metoprolol --> to nifedipine 30 mg daily ( by cardiologi st Dr. Matt Armstrong III ) Increased liver function 04737500 R94.5 K75.9 R79.9 -- followed w/ Dr Hager Immunization refused 275 911167 Z28.20 -- will issue Tdap & Flu incase pt changes her mind. Screening for malignant neoplasm of breast 520438066 Z12.31 -- pt agrees to have her Hand Rigger Dr Ahsan Street orders and manages her mammogram Screening for malignant neoplasm of cervix 890105605 Z12.4 Hepatitis C screening 41 0805502 Z11.59 -- tested negative for Hep C on 07/26/19 Essential hypertension 47576533 I10 Dyspnea on exertion 6084 5006 R06.09 Serum iron above reference range 373912921 R79.0 Lymphadenopathy 26866006 R59.0 (x 2 months since May 2020) -- see photo [id number] Tristin De Leon MD [facility] [address] [place] [address] 07/07/2021 14:35:13 07/07/2021 16:47:48 Essential hypertension 24906106 I10 - BP uncontroll ed; will increase Amlodipine from 2.5 mg to 5 mg daily-- EKG done on 07/29/20 Dyspnea on exertion 6084 5006 R06.09 -- cardiac echo by Cardiologi st Dr Matt Armstrong III ) in 07/2020 showed EF of 50% Fatigue 53156712 R53.83 -- monitored by cardiologi st Dr. Matt Armstrong III )-- Home sleep study done on 01/30/18 Lymphadenopathy 96247511 R59.0 (x 2 months since May 2020) -- see photo-- pt saw Gen Surgeon and was told to f/u with him if veronica increasing sx Serum iron above reference range 410209549 R79.0 Increased liver function 87656087 R94.5 K75.9 R79.9 -- follow up w/ Dr Hager as directed Dr Hager Hepatitis C screening 41 1373273 Z11.59 -- tested negative for Hep C on 07/26/19 Immunization refused 275 817402 Z28.20 -- will issue Tdap & Flu incase pt changes her mind. Screening for malignant neoplasm of breast 361266294 Z12.31 -- pt agrees to have her Hand Rigger Dr Ahsan Street orders and manages her mammogram Screening for malignant neoplasm of cervix 761245992 Z12.4 Screening for malignant neoplasm of colon 165224744 Z12.11 -- Pt will call with the name of the GI physician whom she wants to set up with. Acute stress disorder 67 377912 F43.0 -- will refer pt to Carlo Conte [id number] Tristin De Leon MD [facility] [address] [place] [address] 01/25/2022 15:33:03 01/25/2022 18:13:45 Adult health examination 584797361 Z00.00 Essential hypertension 86075920 I10 - BP controlled ;-- EKG done on 07/29/20 Dyspnea on exertion 6084 5006 R06.09 -- cardiac echo by Cardiologi st Dr Matt Armstrong III ) in 07/2020 showed EF of 50% Fatigue 17188334 R53.83 -- monitored by cardiologi st Dr. Matt Armstrong III )-- Home sleep study done on 01/30/18 Lymphadenopathy 75850544 R59.0 (since May 2020) -- almost gone now -- see new photo (no longer visible and not always palpable)- - pt saw Gen Surgeon Dr Amador Ochoa and was told to f/u with him if veronica increasing sx Serum iron above reference range 457413402 R79.0 Increased liver function 54842006 R94.5 K75.9 R79.9 -- follow up w/ Dr Hager as directed Dr Hager Screening for malignant neoplasm of colon 142313266 Z12.11 -- Pt will call with the name of the GI physician whom she wants to set up with. Hepatitis C screening 41 1271032 Z11.59 -- tested negative for Hepatitis C on 07/26/19 Immunization refused 275 909223 Z28.20 Screening for malignant neoplasm of breast 862571898 Z12.31 -- pt agrees to have her Hand Rigger Dr Ahsan Street orders and manages her mammogram Screening for malignant neoplasm of cervix 479384442 Z12.4 Acute stress disorder 67 986460 F43.0 -- pt saw Carlo Sheffield and felt improved; Body mass index 20-24 - normal 035228182 Z68.22 -- pt is in the healthy weight category w/ a BMI 22.3 (ideal is between 20-25) [id number] Tristin De Leon MD [facility] [address] [place] [address] 05/24/2022 15:38:07 05/24/2022 17:24:33 Attention deficit hyperactivity disorder, predominantly inattentive type 87570349 F90.0 (pt remembered that her pediatrici an told her mom that pt may have ADHD) [id number] Tristin De Leon MD [facility] [address] [place] [address] 06/10/2022 11:50:43 06/10/2022 13:57:24 Attention deficit hyperactivity disorder, predominantly inattentive type 06280901 F90.0 (pt remembered that her pediatrici an told her mom that pt may have ADHD) -- Pt reports she is focusing better and completing task; outlook on things seem brighter; no mood swings.-- no anxiety/pa lpitations or n/v, rash/swell ing/dizzin ess, confusion, SI./HI, or JACQUES. 534016 Tristin De Leon MD [facility], [facility] [address] [place] [address] 09/29/2022 16:03:20 09/29/2022 18:12:26 Attention deficit hyperactivity disorder, predominantly inattentive type 98740006 F90.0 (pt remembered that her pediatrici an told her mom that pt may have ADHD) -- Pt reports she is focusing better and completing task; outlook on things seem brighter; no mood swings.-- no anxiety/pa lpitations or n/v, rash/swell ing/dizzin ess, confusion, SI./HI, or JACQUES.-- improved 80% since on Adderall-- pt attribute weight loss to going of steroids inhalers Essential hypertension 52936747 I10 - BP controlled ;-- EKG done on 07/29/20-- recheck labs on 11/29/22 Obsessive- compulsive disorder 522617426 F42.9 -- pt did not need Sertraline anymore Asthma 509791191 J45.90 9 -- no exacerbati on Body mass index 20-24 - normal 819509874 Z68.22 -- pt is in the healthy weight category w/ a BMI 22.3 (ideal is between 20-25) Hepatitis C screening 41 6703082 Z11.59 -- tested negative for Hepatitis C on 07/26/19 HIV screening 738999409 Z11.4 Active or passive immunization 835107271 Z23 Screening for malignant neoplasm of colon 740479561 Z12.11 -- Pt will call with the name of the GI physician whom she wants to set up with. Screening for malignant neoplasm of breast 182468090 Z12.31 -- pt agrees to have her Hand Rigger Dr Ahsan Street orders and manages her mammogram Gynecologi c examination 70466057 Z01.419 Hyperlipid emia screening 017511821 Z13.220 505216 Tristin De Leon MD [facility] [address] [place] [address] 12/07/2022 15:32:15 12/07/2022 18:02:22 Attention deficit hyperactivity disorder, predominantly inattentive type 47726487 F90.0 (pt remembered that her pediatrici an told her mom that pt may have ADHD) -- Pt reports she is focusing better and completing task; outlook on things seem brighter; no mood swings.-- no anxiety/pa lpitations or n/v, rash/swell ing/dizzin ess, confusion, SI./HI, or JACQUES.-- improved 80% since on Adderall-- pt attribute weight loss to going of steroids inhalers Essential hypertension 01520289 I10 - BP controlled ;-- EKG done on 07/29/20-- recheck labs on 11/29/22 Asthma 706127611 J45.90 9 -- no exacerbati on Obsessive- compulsive disorder 383648110 F42.9 -- pt did not need Sertraline anymore-- still doing well Body mass index 20-24 - normal 169404993 Z68.22 -- pt is in the healthy weight category w/ a BMI 22.3 (ideal is between 20-25) Hyperlipid emia screening 349640713 Z13.220 Hepatitis C screening 41 1477484 Z11.59 -- tested negative for Hepatitis C on 07/26/19 HIV screening 982637876 Z11.4 Active or passive immunization 156225176 Z23 Screening for malignant neoplasm of colon 547863440 Z12.11 -- Pt will call with the name of the GI physician whom she wants to set up with. Screening for malignant neoplasm of breast 325183178 Z12.31 -- pt agrees to have her Hand Rigger Dr Ahsan Street orders and manages her mammogram Gynecologi c examination 70438759 Z01.419 Chronic insomnia 4442089 04 F51.04 Advised good sleep habits and [...] can be habit forming Loss of hair 935266640 L 65.9 -- had covid twice; likely chronic Telogen Effluvium [id number] Tristin De Leon MD [facility] [address] [place] [address] 04/06/2023 15:35:54 04/06/2023 17:41:41 Attention deficit hyperactivity disorder, predominantly inattentive type 63958662 F90.0 (pt remembered that her pediatrici an told her mom that pt may have ADHD) -- Pt reports she is focusing better and completing task; outlook on things seem brighter; no mood swings.-- no anxiety/pa lpitations or n/v, rash/swell ing/dizzin ess, confusion, SI./HI, or JACQUES.-- improved 80% since on Adderall-- pt attribute weight loss to going of steroids inhalers Essential hypertension 97171547 I10 - BP controlled ;-- EKG done on 07/29/20-- recheck labs on 11/29/22 Asthma 749404753 J45.90 9 -- no exacerbati on Obsessive- compulsive disorder 418208443 F42.9 -- pt did not need Sertraline anymore-- still doing well Loss of hair 828891362 L 65.9 -- had covid twice; likely chronic Telogen Effluvium Body mass index 20-24 - normal 718857942 Z68.22 -- pt is in the healthy weight category w/ a BMI 20.5 (ideal is between 20-25) Hyperlipid emia screening 333294402 Z13.220 -- very good lipid panel on 12/10/22 Hepatitis C screening 41 4378266 Z11.59 -- tested negative for Hepatitis C on 07/26/19 HIV screening 623300016 Z11.4 -- tested negative for HIV on 12/10/22 Active or passive immunization 112678447 Z23 Screening for malignant neoplasm of colon 723283509 Z12.11 -- Pt will call with the name of the GI physician whom she wants to set up with. Screening for malignant neoplasm of breast 305183696 Z12.31 -- pt agrees to have her Hand Rigger Dr Ahsan Street orders and manages her mammogram Gynecologi c examination 25017884 Z01.419 Liver enzy mes level above reference range 128430838 R74.8 Right flank pain 7270782 09 R10.9 (lower) 785095 Tristin De Leon MD [facility] [address] [place] [address] 07/13/2023 16:09:32 07/13/2023 19:29:46 Attention deficit hyperactivity disorder, predominantly inattentive type 52530625 F90.0 (pt remembered that her pediatrici an told her mom that pt may have ADHD) -- Pt reports she is focusing better and completing task; outlook on things seem brighter; no mood swings.-- no anxiety/pa lpitations or n/v, rash/swell ing/dizzin ess, confusion, SI./HI, or JACQUES.-- improved 80% since on Adderall-- pt attribute weight loss to going of steroids inhalers Asthma 074723415 J45.90 9 -- no exacerbati on Essential hypertension 04983773 I10 - BP controlled ;-- EKG done on 07/29/20 Cough 33060521 R05.9 -- ? from Losartan [id number] Tristin De Leon MD [facility] [address] [place] [address] 12/15/2023 11:22:16 12/15/2023 14:07:26 Liver enzymes level above reference range 286724912 R74.8 Essential hypertension 92807080 I10 - BP uncontroll ed; increase Losartsn from 25 mg qd --> 1 pill every 12 hours-- EKG done 12/15/23 Attention deficit hyperactivity disorder, predominantly inattentive type 69017472 F90.0 (pt remembered that her pediatrici an told her mom that pt may have ADHD) -- Pt reports she is focusing better and completing task; outlook on things seem brighter; no mood swings.-- no anxiety/pa lpitations or n/v, rash/swell ing/dizzin ess, confusion, SI./HI, or JACQUES.-- improved 80% since on Adderall-- pt attribute weight loss to going of steroids inhalers Asthma 220729745 J45.90 9 -- no exacerbati on-- spirometry on 07/13/23 Active or passive immunization 942237755 Z23 -- pt does not want Flu shot Screening for malignant neoplasm of colon 828807371 Z12.11 -- Pt will call with the name of the GI physician whom she wants to set up with. Screening for malignant neoplasm of breast 814534342 Z12.31 -- pt agrees to have her Hand Rigger Dr Ahsan Street orders and manages her mammogram Gynecologi c examination 46017452 Z01.419 Screening for cardiovascular system disease 394136888 Z13.6 Health Concerns Section Related Observation LastModified by Organization Detai ls LastModified Time None Recorded Concern Status LastModified by Organization Details LastModified Time None Recorded Advance Directives Directive None Recorded Payers Encounter Date Sequence Insurance Name Policy Number Policy Babin Covered Member ID Babin Member ID Guarantor Name 09/29/2022 1 [facility] [employer] [id number] [facility] [id number] 2 [employer] 12/07/2022 1 [facility] [employer] [id number] Paola Red [employer] [facility] [id number] 2 Paola V Mike 04/06/2023 1 [facility] [id number] Paola elarmMike [id number] 2 Paola V Mike 07/13/2023 1 [facility] [employer] [id number] Paola elarmMike [id number] 2 Paola V Mike 12/15/2023 1 [facility] [employer] [id number] Paola elarmMike [id number] 2 [employer] [facility] Notes Date Note Type Note Provider Name [...] symptoms, etc. Tristin De Leon MD [address] [facility] [address], [place], [address], [facility] 09/29/2022 18:08:53 12/07/2022 text/html Pt comes [...] symptoms, etc. Tristin De Leon MD [address] [facility] [address], [place], [address], [facility] 12/07/2022 18:00:20 04/06/2023 text/html Pt comes [...] symptoms, etc. Tristin De Leon MD [address] [facility] [address], [place], [address], [facility] 04/06/2023 17:39:25 07/13/2023 text/html Pt comes [...] symptoms, etc. Tristin De Leon MD [address] [facility] [address], [place], [address], [facility] 07/13/2023 18:41:17 12/15/2023 text/html Pt comes [...] symptoms, etc. Tristin De Leon MD [address] [facility] [address], [place], [address], [facility] 12/15/2023 13:55:11 OBGyn Episode No OBEpisode recorded.
--- OUTSIDE RECORDS SUMMARY | 2024-03-14 06:13 | XMS_ITS | Referral Summary ---
Author Organization [facility] Address [address] [facility] [place] [address] Care Team Providers Care Helpdesk Technician Name Role Phone Tristin Ghotra MD Primary Care Provider [phone] Source Comments [facility],non-owned Affiliates and Associated Physician Practices is amultiple site organization consisting of ambulatory clinics and hospital sitesin [place], [place], [place] and [place]. This disclosure is being madepursuant to the Care Everywhere program and may not contain all information available regarding this patient. Last updated 17.[facility] Allergies No known active allergies Medications * [...] Diagnosed Date Elevated LFTs 09/06/2017 History of [place] (myocardial infarction) 09/06/2017 Overview (09/07/2017): Echo 09/2013 [...] of Treatment Not on file Care Teams Helpdesk Technician Relationship Specialty Start Date End Date Tristin Ghotra MD [address] [facility] [address] [place] [address] PCP - General 04/04/12
--- OUTSIDE RECORDS SUMMARY | 2024-03-14 06:13 | XMS_ITS | Patient Health Summary ---
Author Organization [facility] Address [address] [place] [address] Care Team Providers Care Warehouse Distribution Associate Name Role Phone Tristin Ghotra MD Primary Care Provider [phone] Note from [facility],non-owned Affiliates and Associated Physician Practices is amultiple site organization consisting of ambulatory clinics and hospital sitesin [place], [place] and [place]. This disclosure is being madepursuant to the Care Everywhere program and may not contain all information available regarding this patient. Last updated 17.[facility] Allergies No known active allergies Medications * [...] Diagnosed Date Elevated LFTs 09/06/2017 History of [place] (myocardial infarction) 09/06/2017 Spontaneous dissection of coronary [...] No Growth of Methicillin Resistant Staphylococcus aureus. [facility] Nasopharyngeal 09/19/2013 5: 20 PM CDT 09/19/2013 9:27 PM CDT Narrative [facility] - 09/21/2013 11:19 AM CDT AndersonSpecimen#[id number] Joselito Loc/Rm/Bed: ICU/ICU/01 Historical Provider LAB - MICROBIOLOG Y ORDERABLES Performing Organization Address City/State/[facility] Co de Phone Number [facility] [address] [phone] * CARDIAC CATHETERIZATION, LEFT (09/19/2013) Provider Unknown GENERIC SURGICAL HIS TORY Care Teams Warehouse Distribution Associate Relationship Specialty Start Date End Date Tristin Ghotra MD [address] [place] [address] [address] [place] [address] PCP - General 04/04/12
--- OUTSIDE RECORDS SUMMARY | 2024-03-14 06:13 | XMS_ITS | Referral Summary ---
Author Organization [facility] Address [address] [place] [address] Care Team Providers Care Process Control Technician Name Role Phone Tristin Ghotra MD Primary Care Provider Encounters Date Type Department Care Team Description 03/12/2024 Orders Only [facility] Cardiology [address] [place] [address] Milton Alfaro MD 03/06/2024 Orders Only [facility] Cardiology [address] [place] [address] Cristopher Lipscomb MD 12/19/2023 Telephone [facility] Specialty Services [address] [place] [address] Miscellaneous, Not In File from Last 3 [...] mcg/actuation aerosol inhaler Active inhalational spacing device (Antonia Cordova [facility]) spacer 1 Device daily 1 each [...] on file Legal Sex Female 3:22 AM PC TECH Gender Identity Female 06/27/2022 9:35 PM [...] Associated Diagnosis Comments CARDIOLOGY DOCUMENT SCAN Routine 03/05/2024 4:35 PM PC TECH CARDIOLOGY DOCUMENT SCAN Routine 03/04/2024 4:30 PM PC TECH CARDIOLOGY DOCUMENT SCAN Routine 03/03/2024 8:40 AM PC TECH SCREENING MAMMOGRAM BILATERAL W NADIR 12/27/2018 2:46 PM PC TECH from Last 3 Months or Most Recently Relevant to Health Maintenance Results * Cardiology Document Scan (03/05/2024 4:35 PM PC TECH) Anatomical Region Laterality Modality Other us Bairon Melendez MD [facility] PRO CEDURES Final Result * Cardiology Document Scan (03/04/2024 4:30 PM PC TECH) Anatomical Region Laterality Modality Other us Milton Alfaro MD [facility] PROCEDURES Final Result * Cardiology Document Scan (03/03/2024 8:40 AM PC TECH) Anatomical Region Laterality Modality Other us Cristopher Lipscomb MD [facility] PROCE DURES Final Result * Screening Mammogram Bilateral W Nadir (12/27/2018 2:46 PM PC TECH) Anatomical Region Laterality Modality Breast Bilateral Mammography 12/27/2018 3:37 PM PC TECH Narrative 12/28/2018 10:58 AM PC TECH Patient Name: RUDI MCKEON V ?Ordering Dr: Ahsan Street ?? D.O.B: 1975 ? Exam Date: 12/27/ ?? 1446 ?? Age: 43 ?Sex: Female ? MR#: [id number] ?? Loc: ? RADIOLOGY REPORT ?? Order #[id number] ?? [facility] ? [facility]anna Bilat [...] age 41, based on guidelines of the [place] [employer] of ?? Radiology (ACR Practice Parameter for the Performance of Screening and ?? Diagnostic Mammography) and [place] College of Obstetricians and ?? Gynecologists. For women with an elevated risk of breast cancer, please refer ?? to the ACR Practice Parameter for specific screening recommendations. ? The patient will be entered into a reminder system with a target due date of 1 ?? year for her next screening exam. ? Electronically signed by: ?Sai Marcum M.D. ? /trish:12/28/2018 10:58:37 ? General Internal Medicine Physician: Kisha DICKERSON (R)(M), [facility] ?? letter sent: Normal Exam ? Reading location: ?? BI-RADS: 2 Benign ? REPORT ELECTRONICALLY SIGNED IN OTHER VENDOR SYSTEM ?? Resulting Agency Comment O Procedure Note Sai Marcum MD - 12/28/2018 Patient Name: RUDI MCKEON Dr: Ahsan StreetO.B: 1975 Exam Date: 12/27/18 1446 Age: 43 Sex: Female MR#: [id number] Loc: RADIOLOGY REPORT Order #[id number] [facility]anna Bilat Screening 3D [...] age 41, based on guidelines of the [place] [employer] (ACR Practice Parameter for the Performance of Screening and Diagnostic Mammography) and [place] [employer] of Obstetricians and Gynecologists. For women with an elevated risk of breast cancer, pleaserefer to the ACR Practice Parameter for specific screening recommendations. The patient will be entered into a reminder system with a target due dateof 1 year for her next screening exam. Electronically signed by: Sai Marcum M.D. ab/trish:12/28/2018 10:58:37 General Internal Medicine Physician: Kisha Dinh)(Caro), [facility] letter sent: Normal Exam Reading location: BI-RADS: 2 Benign REPORT ELECTRONICALLY SIGNED IN OTHER VENDOR SYSTEM Ahsan Street MD IMG MAMMO PROCEDURES Final R esult from Last 3 Months or Most Recently Relevant to Health Maintenance Insurance LOC Enterprises OPEN ACCESS [employer] OPEN ACCESS CIGBEATRICE OPEN ACCESS Care Teams Process Control Technician Relationship Specialty Start Date End Date Tristin Ghotra MD [address] [place] [address] PCP - General 12/07/18
--- OUTSIDE RECORDS SUMMARY | 2024-03-14 06:13 | XMS_ITS | Clinical Summary ---
Author Organization [facility] Address [address] [place] [address]. [place], [place] [address] [place] [address] Care Team Providers Care Knitting Machine Tender Name Role Phone Tristin Ghotra MD Primary Care Provider [phone] Medications No known medications Social History Tobacco [...] patient's age to complete this topic Insurance [facility] Care Teams Knitting Machine Tender Relationship Specialty Start Date End Date Tristin Ghotra MD [address] [facility] [address] [place] [address] PCP - General 02/18/13
--- OUTSIDE RECORDS SUMMARY | 2024-03-14 06:13 | XMS_ITS | Encounter Summary ---
Author Organization [facility] Address [address] [place] [address] Care Team Providers Care Sewing Supervisor Name Role Phone Tristin Ghotra MD Primary Care Provider [phone] Encounter Details Date Type Department Care Team (Late st Contact Info) Description 03/06/2024 Orders Only [facility] Cardiology [address] [place] [address] Cristopher Lipscomb MD [facility] [address] [address] Social History Tobacco Use Types Packs/Day Years Used Date Smoking Tobacco: Never Alcohol Use Standard Drinks/Week Comments Yes 0 (1 standard drink = 0.6 oz pur e alcohol) Comments Unknown Sex and Gender Information Value Date Recorded Sex Assigned at Not on file Legal Sex Female 3:22 AM CRYSTAL GROWING TECHNICIAN Gender Identity Female 06/27/2022 9:35 PM CDT Sexual Orientation Not on file documented as of this encounter Plan of Treatment Not on file documented as of this encounter Procedures Procedure Name Priority Date/Time Associated Diagnosis Comments CARDIOLOGY DOCUMENT SCAN Routine 03/03/2024 8:40 AM CRYSTAL GROWING TECHNICIAN documented in this encounter Results * Cardiology Document Scan (03/03/2024 8:40 AM CRYSTAL GROWING TECHNICIAN) Anatomical Region Laterality Modality Other us Cristopher Lipscomb MD [facility] MARTHA REYES Final Result documented in this encounter Visit Diagnoses Not on filedocumented in this encounter Care Teams Sewing Supervisor Relationship Specialty Start Date End Date Tristin Ghotra MD [address] [place] [address] PCP - General 12/07/18 documented as of this encounter
--- OUTSIDE RECORDS SUMMARY | 2024-03-14 06:13 | XMS_ITS | Clinical Summary ---
Author Organization [facility] Address [address] [place] [address] Care Team Providers Care Cardiothoracic Icu Rn Name Role Phone Tristin Ghotra MD Primary Care Provider [phone] Allergies No known active allergies Medications aspirin 81 mg tablet take 1 tablet by oral route every day 0 0 4 Active amLODIPine (NORVASC) 5 mg tablet amlodipine 5 mg tablet TAKE 1 TABLET BY MOUTH EVERY DAY Active albuterol HFA (PROVENTIL HFA,VENTOLIN HFA,PROAIR HFA) 90 mcg/actuation inhaler albuterol sulfate HFA 90 mcg/actuation aerosol inhaler Active inhalational spacing device (OptiChamber Tasha [facility]) spacer 1 Device daily 1 each 2 [...] Department Care Team Description 03/12/2024 Orders Only [facility] Cardiology [address] [place] [address] Milton Alfaro MD 03/06/2024 Orders Only [facility] Cardiology [address] [place] [address] Cristopher Lipscomb MD 12/19/2023 Telephone [facility] Specialty Services [address] [place] [phone] Miscellaneous, Not In File from Last 3 [...] on file Legal Sex Female 3:22 AM BENEFIT DIRECTOR Gender Identity Female 06/27/2022 9:35 PM [...] Breast Cancer Screening-Mammogram 12/28/2019 019 Covid-19 Vaccine (3 - season) 2023, 06/16/2020 Influenza Vaccine (#1) 2023 Procedures Procedure Name Priority Date/Time Associated Diagnosis Comments CARDIOLOGY DOCUMENT SCAN Routine 03/05/2024 4:35 PM BENEFIT DIRECTOR CARDIOLOGY DOCUMENT SCAN Routine 03/04/2024 4:30 PM BENEFIT DIRECTOR CARDIOLOGY DOCUMENT SCAN Routine 03/03/2024 8:40 AM BENEFIT DIRECTOR SCREENING MAMMOGRAM BILATERAL W NADIR 12/27/2018 2:46 PM BENEFIT DIRECTOR from Last 3 Months or Most Recently Relevant to Health Maintenance Results * Cardiology Document Scan (03/05/2024 4:35 PM BENEFIT DIRECTOR) Anatomical Region Laterality Modality Other us Bairon Melendez MD [facility] PRO CEDURES Final Result * Cardiology Document Scan (03/04/2024 4:30 PM BENEFIT DIRECTOR) Anatomical Region Laterality Modality Other us Milton Alfaro MD [facility] PROCEDURES Final Result * Cardiology Document Scan (03/03/2024 8:40 AM BENEFIT DIRECTOR) Anatomical Region Laterality Modality Other us Cristopher Lipscomb MD [facility] PROCE AMY Final Result * Screening Mammogram Bilateral W Nadir (12/27/2018 2:46 PM BENEFIT DIRECTOR) Anatomical Region Laterality Modality Breast Bilateral Mammography 12/27/2018 3:37 PM BENEFIT DIRECTOR Narrative 12/28/2018 10:58 AM BENEFIT DIRECTOR Patient Name: RUDI MCKEON V ?Ordering Dr: Ahsan Street ?? D.O.B: 1975 ? Exam Date: 12/27/18 ?? 1446 ?? Age: 43 ?Sex: Female ? MR#: [id number] ?? Loc: ? RADIOLOGY REPORT ?? Order #[id number] ?? [facility] ? Breanna Bilat Screening 3D [...] age 41, based on guidelines of the [employer] ?? [employer] (ACR Practice Parameter for the Performance of Screening and ?? Diagnostic Mammography) and [employer] ?? [employer]. For women with an elevated risk of breast cancer, please refer ?? to the ACR Practice Parameter for specific screening recommendations. ? The patient will be entered into a reminder system with a target due date of 1 ?? year for her next screening exam. ? Electronically signed by: ?Sai Marcum M.D. ? ab/penrad:12/28/2018 10:58:37 ? Apron Man: Kisha Dinh)(Caro), [facility] ?? letter sent: Normal Exam ? Reading location: ?? BI-RADS: 2 Benign ? REPORT ELECTRONICALLY SIGNED IN OTHER VENDOR SYSTEM ?? Resulting Agency Comment O Procedure Note Sai Marcum MD - 12/28/2018 Patient Name: RUDI MCKEON Dr: Ahsan StreetO.B: 1975 Exam Date: 12/27/18 1446 Age: 43 Sex: Female MR#: [id number] Loc: RADIOLOGY REPORT Order #[id number] [facility] Breanna Bilat Screening 3D Signed [...] age 41, based on guidelines of the [employer] (ACR Practice Parameter for the Performance of Screening and Diagnostic Mammography) and [employer]. For women with an elevated risk of breast cancer, pleaserefer to the ACR Practice Parameter for specific screening recommendations. The patient will be entered into a reminder system with a target due dateof 1 year for her next screening exam. Electronically signed by: Sai lyons/trish:12/28/2018 10:58:37 Apron Man: Kisha Traylor (R)), [facility] letter sent: Normal Exam Reading location: BI-RADS: 2 Benign REPORT ELECTRONICALLY SIGNED IN OTHER VENDOR SYSTEM Ahsan Street MD IMG MAMMO PROCEDURES Final R esult from Last 3 Months or Most Recently Relevant to Health Maintenance Insurance CIGBEATRICE OPEN ACCESS CIGNA OPEN ACCESS CIGNA OPEN ACCESS Care Teams Cardiothoracic Icu Rn Relationship Specialty Start Date End Date Tristin Ghotra MD [address] [facility] [address] [place] [address] PCP - General 12/07/18
== END 2024-03-06 14:13 | disposition home or self-care (01) | DRG 282 ==
LOC: ANHED 03-03 01:56 → ANHIMU 03-03 07:59
PROVIDERS: Internal Medicine; Internal Medicine Cardiovascular Disease; Admitting Provider Internal Medicine; Emergency Provider Emergency Medicine; PCP Internal Medicine; Visit Provider General Practice
PROC: 4A023N7 Measurement of Cardiac Sampling and Pressure, Left Heart, Percutaneous Approach (ICD-10-PCS; CPT 93452; principal; 2024-03-04 10:30)
DX: I21.4 Non-ST elevation (NSTEMI) myocardial infarction (principal); I10 Essential (primary) hypertension; J45.909 Unspecified asthma, uncomplicated; Z95.5 Presence of coronary angioplasty implant and graft
CPT/HCPCS: 36415; 71046; 71275; 80053; 80061; 81025; 83036; 83690; 83735; 84484; 85025; 85027; 85610; 85730; 93005; 93306; 93458; 96374; 99285; A9270; C1887; C1894; G0378; J1644; J2003; J2250; J2270; J3010; J7030; J7040; Q9967